=== PATIENT | male | born 1980 | race Caucasian/White ===

== ENCOUNTER → 2017-11-18 | Outpatient (CLI) | payer OTHER ==
[~2017-11-18] MED LIST: AMLO-114 PO
[2017-11-18 12:00] LABS: HEMATOCRIT 41.7 % (42-52); HEMOGLOBIN 14.5 g/dL (14.0-18.0); MEAN CELL VOLUME 101.2 fL (80-100); MEAN CORPUSCULAR HEMOGLOBIN 35.2 pg (25-34); MEAN CORPUSCULAR HGB CONC 34.8 g/dl (32-36); MEAN PLATELET VOLUME 8.6 fL (7.4-10.4); PLATELET COUNT 250 K/uL (130-400); RED CELL DISTRIBUTION WIDTH CV 14.7 % (11.5-14.5); RED CELL DISTRIBUTION WIDTH SD 54.3 fL (36.4-46.3)
[2017-11-18 12:11] LABS: BLOOD UREA NITROGEN 21 mg/dl (7-18); CALCIUM 8.8 mg/dl (8.5-10.1); CARBON DIOXIDE 31 mmol/L (21-32); CREATININE 1.38 mg/dl (0.60-1.40); GLUCOSE 69 mg/dl (70-99); PHOSPHORUS 2.6 mg/dl (2.5-4.9); POTASSIUM 3.5 mmol/L (3.5-5.1); SODIUM 140 mmol/L (136-145)
--- NOTE | 2018-01-30 08:29 | CODING QUERY MEDICAL NECESSITY ---
SUPPORTING DIAGNOSIS NEEDED A supporting diagnosis is required for the test/procedure performed on this patient in order for us to be reimbursed by the patient's insurance. Please provide a supporting diagnosis for the following test/procedure listed below next to the test name along with your signature. *If there is no additional diagnosis for this patient that would support the following test/procedure please document that below next to the test/procedure. Test(s)/Procedure(s) that require a supporting diagnosis: DOS: 11/18/17 * CBC W/O DIFF DIAGNOSIS: * PARATHYROID HORMONE INTACT DIAGNOSIS: * PHOSPHORUS DIAGNOSIS: * PARTIAL RENAL PROFILE DIAGNOSIS: Provider Signature: Date: Thank you Nissa Savage [employer] Once completed, please kindly fax back to [phone] For questions please call [phone]
== END | disposition home or self-care (01) ==
LOC: C.LABCVIM 11:15 → EDSTATUS 12-22 12:10
PROVIDERS: ATTEND Internal Medicine
DX: I10 Essential (primary) hypertension (principal)

== ENCOUNTER 2021-08-20 16:13 | Observation (INO) ==
[2021-08-20 18:36] LABS: Basophils # (auto) 0.07 K/uL (0-0.2); Basophils % (auto) 0.8 %; Eosinophils # (auto) 0.85 K/uL (0-0.5); Eosinophils % (auto) 9.3 %; Hematocrit (blood only) 36.6 % (42-52); Hemoglobin 12.3 g/dL (14.0-18.0); Immature Granulocytes # (auto) 0.03 K/uL (0.00-0.02); Immature Granulocytes % (auto) 0.3 %; Lymphocytes # (auto) 1.67 K/uL (1.2-3.4); Lymphocytes % (auto) 18.3 %; Mean Corpuscular Hemoglobin 36.2 pg (25-34); Mean Corpuscular Hgb Conc 33.6 g/dL (32-36); Mean Corpuscular Volume 107.6 fL (80-100); Monocytes # (auto) 0.73 K/uL (0.11-0.59); Neutrophils # (auto) 5.78 K/uL (1.4-6.5); Neutrophils % (auto) 63.3 %; Platelet Count 417 K/uL (130-400); RDW Coefficient of Variation 12.7 % (11.5-14.5); RDW Standard Deviation 50.3 fL (36.4-46.3); White Blood Count 9.13 K/uL (4.8-10.8)
[2021-08-20] MEDS ORDERED: SODIUM CHLORIDE 0.9% 1000ML 2,000 ML IV ONE (18:41)
[2021-08-20] MEDS ORDERED: ACETAMINOPHEN 1,000 MG/100 ML VIAL IV STA (18:41)
[2021-08-20] MEDS ORDERED: PIPERACILL/TAZOBAC CONSULT ACTIVE PRN ×2 (18:44→23:08)
[2021-08-20] MEDS ORDERED: DAPTOmycin 525 MG in SYRINGE 0 ML IV ONE (18:44)
[2021-08-20] MEDS ORDERED: PIPERACILLIN/TAZOBACTAM 4.5 GM/120 ML BAG IV ONE (18:44)
[2021-08-20 18:55] LABS: Albumin Level 3.5 gm/dl (3.4-5.0); BUN Creatinine Ratio 13.3 (10-20); Calcium 10.1 mg/dl (8.5-10.1); Creatinine Clr Calc Pharmacy 27.5 ml/min; Est GFR (African American) 18.5 ml/min; Potassium 5.1 mmol/L (3.5-5.1)
[2021-08-20 18:58] LABS: Albumin Globulin Ratio 0.6 (0.9-2); Bilirubin,Total 0.4 mg/dl (0.2-1); Globulin 5.6 gm/dl (2.5-4.0); Total Protein 9.1 gm/dl (6.4-8.2)
--- NOTE | 2021-08-20 19:15 | Emergency Department Note ---
Impression & Plan Acute on chronic renal failure, Hypotension, Abscess of left foot ED Provider Note NAME: JOCELYN JENSEN AGE: 41 SEX: M ARRIVES VIA: Walk-In INFORMANT: Patient, ED PROVIDER(S): Bakari Win MD CHIEF COMPLAINT: Dizziness, hypotension. PLAN: Disposition: Admit MEDICAL DECISION MAKING: The patient is a pleasant 41-year-old gentleman with a past medical history of CKD, hypertension, chronic venous insufficiency, venous stasis ulcer of the lower extremities who presents to the emergency department referred by his rib chopper after having continued low blood pressure and lightheadedness in setting of being seen in the emergency department on 08/14 for the same suspected to be related to dehydration as his renal function was declining. He reports that he was initially taking he stopped taking his hydrochlorothiazide after seeing his PCP on 08/13 but following his ED visit was told to discontinue his lisinopril per his rib chopper recommendations. He then reports he resumed his hydrochlorothiazide as he presumed that he was supposed to stay on "something". He reports he follows with the wound clinic weekly and was last seen on Friday when his leg foot was wrapped. This has not been changed. He reports there does appear to be some oozing from the dorsal part of his foot that he feels may be related to the dressing. He denies any fevers, nausea, vomiting, diarrhea or urinary symptoms. He does report chills but feels that this is probably due to his low blood pressure. He denies any syncopal episodes. On arrival the patient is chronically ill/fatigued appearing but no acute distress, afebrile with low blood pressure 80s-100s/60s-70s. HR 110s and otherwise vital signs stable. He does appear clinically dry. Examination of the patient's left lower extremity and foot following removal of extensive dressing/Coban did reveal fluctuance and edema of the dorsal forefoot mostly over the fourth and fifth metatarsal area which upon palpation did express foul- smelling purulent discharge. This was cultured and sent. Additional massage this area did express additional purulence with reduction of area of fluctuance. The patient does have a 4 cm medial malleolus ulcer which he reports is unchanged. EKG without overt acute ischemia. CXR negative for acute cardiopulmonary process. XR of foot and ankle, without XR evidence of osteo Note is made of few locules of soft tissue gas of the dorsal left forefoot at the level of the distal shaft of the left fifth metatarsal. WBC wnl. HH similar to prior. Platelets 417K, nonspecific. ESR and CRP are elevated at 84 and and 5.5, respectively. Chemistry without significant acidosis. Cr. uptrended to 4.25. Electrolytes unremarkable. LFTs without significant abnormality. Troponin negative/undetectable. Procalcitonin 0.38. UA without convincing evidence of infection. Covid-19 PCR negative. Patient was treat with IV Zosyn and Daptomycin upon arrival given foot abscess and hypotension. BP responsive to IVF in ED. Patient agrees with plan for admission. CT abd/pelvis and foot ordered and pending. Case was discussed with Dr. Reyez, [facility] hospitalist, who will evaluate the patient for admission. CT Foot demonstrates small residual abscess of the forefoot in the setting of drainage at the bedside during his exam on arrival. CT abd/pelvis with pancre atic cyst, which is suspected to be incidental given benign abdominal exam. Triage Nursing notes reviewed and agree them. Prior medical records reviewed Vital Signs: reviewed and remarkable for hypotension, tachycardia. Differential diagnosis: Infection, dehydration, metabolic abnormality, hypo/hyperglycemia, electrolyte disturbance, anemia, hypoxia, cardiac sources, intracerebral event, toxicologic, neurologic, as well as other pathologies. ER treatment provided: See below. Diagnostics interpreted by me: ECG: Sinus rhythm with 1st degree A-V block, 90 bpm, no ectopy, no overt ST elevation or depression. Cardiac Monitoring: An order for continuous cardiac monitoring was placed and demonstrated Sinus rhythm, 90 bpm, no ectopy Laboratory studies: See below Imaging studies: See below Consultation(s): Case was discussed with Dr. Reyez, [facility] hospitalist, who will evaluate the patient for admission. HPI: The patient is a pleasant 41-year-old gentleman with a past medical history of CKD, hypertension, chronic venous insufficiency, venous stasis ulcer of the lower extremities who presents to the emergency department referred by his rib chopper after having continued low blood pressure and lightheadedness in setting of being seen in the emergency department on 08/14 for the same suspected to be related to dehydration as his renal function was declining. He reports that he was initially taking he stopped taking his hydrochlorothiazide after seeing his PCP on 08/13 but following his ED visit was told to discontinue his lisinopril per his rib chopper recommendations. He then reports he resumed his hydrochlorothiazide as he presumed that he was supposed to stay on "something". He reports he follows with the wound clinic weekly and was last seen on Friday when his leg foot was wrapped. This has not been changed. He reports there does appear to be some oozing from the dorsal part of his foot that he feels may be related to the dressing. He denies any fevers, nausea, vomiting, diarrhea or urinary symptoms. He does report chills but feels that this is probably due to his low blood pressure. He denies any syncopal episodes. ROS: See above HPI for pertinent positives & negatives. A total of 10 systems reviewed and were otherwise negative. PAST MEDICAL HISTORY:See Below PAST SURGICAL HISTORY:See Below FAMILY HISTORY:See Below SOCIAL HISTORY:See Below HOME MEDICATIONS:See Below ALLERGIES:See Below VITALS:See Below PHYSICAL EXAMINATION: GENERAL: Awake, alert, fatigued/chronically ill-appearing, in no distress HENT: Normocephalic, atraumatic. Oropharynx with dry mucous membranes and otherwise unremarkable. EYES: Normal conjunctiva. Sclera non-icteric. NECK: Supple. No nuchal rigidity. FROM. No JVD. RESPIRATORY: Clear to auscultation. CARDIAC: Regular rate, normal rhythm. Extremities warm and well perfused. Pulses equal. ABDOMEN: Soft, non-distended. No tenderness to palpation. No rebound or guarding. No masses. RECTAL: Deferred. MUSCULOSKELETAL: Chest examination reveals no tenderness. The back is symmetrical on inspection without obvious abnormality. There is no CVA tenderness to palpation. No joint edema. LOWER EXTREMITIES: Calves are equal size bilaterally and non-tender. Left lower extremity and foot following removal of extensive dressing/Coban did reveal fluctuance and edema of the dorsal forefoot mostly over the fourth and fifth metatarsal area which upon palpation did express foul-smelling purulent discharg e. 4 cm medial malleolus ulcer. NEURO: Normal sensorium. No sensory or motor deficits noted. SKIN: No rash or jaundice noted. ED Course: I have personally spent greater than 35 minutes of critical care time in the direct management of this patient. This includes bedside care, interpretation of diagnostic studies, and testing, discussion with consultants, patient, and f amily members, and other required patient management activities. This 35 minutes is in excess of all separately billable procedures. Bakari Win MD Past Med/Surg History Medical History Acute kidney injury Arthritis Chronic kidney disease with symptom management only, stage 4 (severe) Chronic venous insufficiency Deep vein thrombosis 07/2018/CHRONIC- ON ELIQUIS HTN (hypertension) MVP (mitral valve prolapse) 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 ECHO Secondary hyperparathyroidism of renal origin Staphylococcus aureus infection Superficial thrombosis of leg PER RECORDS UTI (urinary tract infection) Venous ulcer RECURRENT VENOUS ULCERATION (REASON FOR PROCEDURE) Vitamin D deficiency Vitamin D deficiency Surgical History Hx of biopsy LEFT KIDNEY S/P vascular surgery LLE 2/2 VENOUS INSUFFICIENCY Family History Mother FHx: lung cancer Hypertension Breast cancer Brother FHx: testicular cancer Hypertension Father Hypertension Unknown Myocardial infarction Social History Smoking Status: Never smoker Second Hand Exposure: No; Do You Dip or Chew Tobacco: No; Hx Alcohol Use: Yes Alcohol type: beer, wine and hard liquor Alcohol Intake Frequency Comment: daily Hx Substance Use: No Preferred Language: Macedonian Communication Ability: Effective Visual Impairment: No Limitations Second Helper Required: No Beliefs That Will Affect Care: None marital status: Current Living Situation: Significant Other Current Living Situation Comment: Fiance Other Information That Helps Us Care for You: No Feels Safe at Home: Yes Safety Concerns: Feels Safe At This Time Assistive Devices: None Allergies Allergies Allergy/AdvReac Type Severity Reaction Status Date / Time doxycycline Allergy Severe Joint Verified 08/20/21 19:18 Pain, Shortness of breath cephalexin Allergy Mild throat Verified 08/20/21 19:18 swells Cipro Allergy Mild throat Verified 06/09/18 08:28 swells ciprofloxacin Allergy Mild throat Verified 08/20/21 19:18 swells Home Meds Previous Rx's Medication Instructions Recorded apixaban 5 mg tablet 5 mg PO BID #180 tab 11/07/20 hydrochlorothiazide 25 mg tablet 25 mg PO QAM #90 tab 05/31/21 allopurinol 100 mg tablet 100 mg PO DAILY #90 tab 06/18/21 Results & Data (ED) Vital Signs Vital Signs - 24 hr 08/20/21 16:48 08/20/21 17:52 08/20/21 18:20 Temperature 36.3 C L Temperature Source Oral Pulse Rate - Lying 82 Pulse Rate - Sitting 87 Pulse Rate - Standing 120 H Pulse Rate 93 H Pulse Rate [Right Finger] 86 Pulse Rhythm [Right Finger] Pulse Strength [Right Finger] Respiratory Rate 20 14 Respiratory Effort / Characteristics Non-Labored Spontaneous Respiratory Depth Normal Respiratory Pattern Regular Blood Pressure - Lying 104/65 Blood Pressure - Sitting 103/71 Blood Pressure- Standing 88/58 L Blood Pressure 89/59 L Blood Pressure [Right Arm] 104/65 Blood Pressure Mean 69 Blood Pressure Mean [Right Arm] 78 Blood Pressure Position Sitting Blood Pressure Position [Right Arm] Semi-fowlers Pulse Oximetry 98 100 Oxygen Delivery Method Room Air Room Air Sepsis Recent Fever Within 48 Hours No Sepsis New/Unexplained Change in Mental Status N/A Sepsis Action Taken by Nursing No Action Required 08/20/21 18:21 08/20/21 19:40 Temperature 36.8 C Temperature Source Oral Pulse Rate - Lying Pulse Rate - Sitting Pulse Rate - Standing Pulse Rate Pulse Rate [Right Finger] 87 91 H Pulse Rhythm [Right Finger] Regular Regular Pulse Strength [Right Finger] Normal Normal Respiratory Rate 18 18 Respiratory Effort / Characteristics Non-Labored Spontaneous Non-Labored Spontaneous Respiratory Depth Normal Normal Respiratory Pattern Regular Regular Blood Pressure - Lying Blood Pressure - Sitting Blood Pressure- Standing Blood Pressure Blood Pressure [Right Arm] 103/71 102/80 Blood Pressure Mean Blood Pressure Mean [Right Arm] 81 87 Blood Pressure Position Blood Pressure Position [Right Arm] Sitting Lying Pulse Oximetry 100 100 Oxygen Delivery Method Room Air Room Air Sepsis Recent Fever Within 48 Hours Sepsis New/Unexplained Change in Mental Status Sepsis Action Taken by Nursing Laboratory Data Attestation: I reviewed the patient's lab results. Result diagrams: 08/20/21 18:02 08/20/21 18:02 Lab Results 08/20/21 08/20/21 08/20/21 Range/Units 18:02 18:02 18:02 WBC 9.13 (4.8-10.8) K/uL RBC 3.40 L (4.7-6.1) M/uL Hgb 12.3 L (14.0-18.0) g/dL Hct 36.6 L (42-52) % MCV 107.6 H (80-100) fL MCH 36.2 H (25-34) pg MCHC 33.6 (32-36) g/dL RDW Std Deviation 50.3 H (36.4-46.3) fL RDW Coeff of Machelle 12.7 (11.5-14.5) % Plt Count 417 H (130-400) K/uL MPV 9.0 (7.4-10.4) fL Immature Gran % (Auto) 0.3 % Neut % (Auto) 63.3 % Lymph % (Auto) 18.3 % Aiken % (Auto) 8.0 % Eos % (Auto) 9.3 % Baso % (Auto) 0.8 % Neut # (Auto) 5.78 (1.4-6.5) K/uL Lymph # (Auto) 1.67 (1.2-3.4) K/uL Aiken # (Auto) 0.73 H (0.11-0.59) K/uL Eos # (Auto) 0.85 H (0-0.5) K/uL Baso # (Auto) 0.07 (0-0.2) K/uL Immature Gran # (Auto) 0.03 H (0.00-0.02) K/uL ESR 84 H (0-15) mm/hr PT (9.0-12.0) Seconds INR (0.9-1.1) Sodium 133 L (136-145) mmol/L Potassium 5.1 (3.5-5.1) mmol/L Chloride 103 (98-107) mmol/L Carbon Dioxide 20 L (21-32) mmol/L Anion Gap 10.0 (3-11) BUN 57 H (7-18) mg/dl Creatinine 4.25 H (0.6-1.4) mg/dl Est Cr Clr Drug Dosing 27.5 ml/min Est GFR ( Amer) 18.5 ml/min Est GFR (Non-Af Amer) 16.0 ml/min BUN/Creatinine Ratio 13.3 (10-20) Glucose 92 (70-99) mg/dl Lactate (0.4-2.0) mmol/L Calcium 10.1 (8.5-10.1) mg/dl Phosphorus (2.5-4.9) mg/dl Magnesium (1.8-2.4) mg/dl Total Bilirubin 0.4 (0.2-1) mg/dl AST 35 (15-37) U/L ALT 49 (12-78) U/L Alkaline Phosphatase 184 H (45-117) U/L Troponin I (0-0.045) ng/ml C-Reactive Protein (0-0.29) mg/dl Total Protein 9.1 H (6.4-8.2) gm/dl Albumin 3.5 (3.4-5.0) gm/dl Globulin 5.6 H (2.5-4.0) gm/dl Albumin/Globulin Ratio 0.6 L (0.9-2) Procalcitonin (0-0.5) ng/ml Urine Color Urine Appearance (Clear) Urine pH (4.5-7.5) Ur Specific Aurora (1.000-1.030) Urine Protein (Negative) Urine Glucose (UA) (Negative) Urine Ketones (Negative) Urine Blood (Negative) Urine Nitrite (Negative) Urine Bilirubin (Negative) Urine Urobilinogen (Negative) Ur Leukocyte Esterase (Negative) Urine WBC (Auto) (0-5) /hpf Urine RBC (Auto) (0-4) /hpf U Hyaline Cast (Auto) (0-5) /lpf U Epithel Cells (Auto) (0-5) /lpf Urine Bacteria (Auto) (Negative) COVID-19 Eval Order SARS-CoV-2 (PCR) (Negative) 08/20/21 08/20/21 08/20/21 Range/Units 18:54 18:54 18:54 WBC (4.8-10.8) K/uL RBC (4.7-6.1) M/uL Hgb (14.0-18.0) g/dL Hct (42-52) % MCV (80-100) fL MCH (25-34) pg MCHC (32-36) g/dL RDW Std Deviation (36.4-46.3) fL RDW Coeff of Machelle (11.5-14.5) % Plt Count (130-400) K/uL MPV (7.4-10.4) fL Immature Gran % (Auto) % Neut % (Auto) % Lymph % (Auto) % Aiken % (Auto) % Eos % (Auto) % Baso % (Auto) % Neut # (Auto) (1.4-6.5) K/uL Lymph # (Auto) (1.2-3.4) K/uL Aiken # (Auto) (0.11-0.59) K/uL Eos # (Auto) (0-0.5) K/uL Baso # (Auto) (0-0.2) K/uL Immature Gran # (Auto) (0.00-0.02) K/uL ESR (0-15) mm/hr PT 10.9 (9.0-12.0) Seconds INR 1.1 (0.9-1.1) Sodium (136-145) mmol/L Potassium (3.5-5.1) mmol/L Chloride (98-107) mmol/L Carbon Dioxide (21-32) mmol/L Anion Gap (3-11) BUN (7-18) mg/dl Creatinine (0.6-1.4) mg/dl Est Cr Clr Drug Dosing ml/min Est GFR ( Amer) ml/min Est GFR (Non-Af Amer) ml/min BUN/Creatinine Ratio (10-20) Glucose (70-99) mg/dl Lactate (0.4-2.0) mmol/L Calcium (8.5-10.1) mg/dl Phosphorus 4.5 (2.5-4.9) mg/dl Magnesium 2.1 (1.8-2.4) mg/dl Total Bilirubin (0.2-1) mg/dl AST (15-37) U/L ALT (12-78) U/L Alkaline Phosphatase (45-117) U/L Troponin I < 0.015 (0-0.045) ng/ml C-Reactive Protein (0-0.29) mg/dl Total Protein (6.4-8.2) gm/dl Albumin (3.4-5.0) gm/dl Globulin (2.5-4.0) gm/dl Albumin/Globulin Ratio (0.9-2) Procalcitonin 0.38 (0-0.5) ng/ml Urine Color Urine Appearance (Clear) Urine pH (4.5-7.5) Ur Specific Aurora (1.000-1.030) Urine Protein (Negative) Urine Glucose (UA) (Negative) Urine Ketones (Negative) Urine Blood (Negative) Urine Nitrite (Negative) Urine Bilirubin (Negative) Urine Urobilinogen (Negative) Ur Leukocyte Esterase (Negative) Urine WBC (Auto) (0-5) /hpf Urine RBC (Auto) (0-4) /hpf U Hyaline Cast (Auto) (0-5) /lpf U Epithel Cells (Auto) (0-5) /lpf Urine Bacteria (Auto) (Negative) COVID-19 Eval Order SARS-CoV-2 (PCR) (Negative) 08/20/21 08/20/21 08/20/21 Range/Units 18:54 18:54 18:54 WBC (4.8-10.8) K/uL RBC (4.7-6.1) M/uL Hgb (14.0-18.0) g/dL Hct (42-52) % MCV (80-100) fL MCH (25-34) pg MCHC (32-36) g/dL RDW Std Deviation (36.4-46.3) fL RDW Coeff of Machelle (11.5-14.5) % Plt Count (130-400) K/uL MPV (7.4-10.4) fL Immature Gran % (Auto) % Neut % (Auto) % Lymph % (Auto) % Aiken % (Auto) % Eos % (Auto) % Baso % (Auto) % Neut # (Auto) (1.4-6.5) K/uL Lymph # (Auto) (1.2-3.4) K/uL Aiken # (Auto) (0.11-0.59) K/uL Eos # (Auto) (0-0.5) K/uL Baso # (Auto) (0-0.2) K/uL Immature Gran # (Auto) (0.00-0.02) K/uL ESR (0-15) mm/hr PT (9.0-12.0) Seconds INR (0.9-1.1) Sodium (136-145) mmol/L Potassium (3.5-5.1) mmol/L Chloride (98-107) mmol/L Carbon Dioxide (21-32) mmol/L Anion Gap (3-11) BUN (7-18) mg/dl Creatinine (0.6-1.4) mg/dl Est Cr Clr Drug Dosing ml/min Est GFR ( Amer) ml/min Est GFR (Non-Af Amer) ml/min BUN/Creatinine Ratio (10-20) Glucose (70-99) mg/dl Lactate 1.0 (0.4-2.0) mmol/L Calcium (8.5-10.1) mg/dl Phosphorus (2.5-4.9) mg/dl Magnesium (1.8-2.4) mg/dl Total Bilirubin (0.2-1) mg/dl AST (15-37) U/L ALT (12-78) U/L Alkaline Phosphatase (45-117) U/L Troponin I (0-0.045) ng/ml C-Reactive Protein (0-0.29) mg/dl Total Protein (6.4-8.2) gm/dl Albumin (3.4-5.0) gm/dl Globulin (2.5-4.0) gm/dl Albumin/Globulin Ratio (0.9-2) Procalcitonin (0-0.5) ng/ml Urine Color Urine Appearance (Clear) Urine pH (4.5-7.5) Ur Specific Aurora (1.000-1.030) Urine Protein (Negative) Urine Glucose (UA) (Negative) Urine Ketones (Negative) Urine Blood (Negative) Urine Nitrite (Negative) Urine Bilirubin (Negative) Urine Urobilinogen (Negative) Ur Leukocyte Esterase (Negative) Urine WBC (Auto) (0-5) /hpf Urine RBC (Auto) (0-4) /hpf U Hyaline Cast (Auto) (0-5) /lpf U Epithel Cells (Auto) (0-5) /lpf Urine Bacteria (Auto) (Negative) COVID-19 Eval Order Covid19 at [facility] SARS-CoV-2 (PCR) NEGATIVE (Negative) 08/20/21 08/20/21 Range/Units 18:54 19:06 WBC (4.8-10.8) K/uL RBC (4.7-6.1) M/uL Hgb (14.0-18.0) g/dL Hct (42-52) % MCV (80-100) fL MCH (25-34) pg MCHC (32-36) g/dL RDW Std Deviation (36.4-46.3) fL RDW Coeff of Machelle (11.5-14.5) % Plt Count (130-400) K/uL MPV (7.4-10.4) fL Immature Gran % (Auto) % Neut % (Auto) % Lymph % (Auto) % Aiken % (Auto) % Eos % (Auto) % Baso % (Auto) % Neut # (Auto) (1.4-6.5) K/uL Lymph # (Auto) (1.2-3.4) K/uL Aiken # (Auto) (0.11-0.59) K/uL Eos # (Auto) (0-0.5) K/uL Baso # (Auto) (0-0.2) K/uL Immature Gran # (Auto) (0.00-0.02) K/uL ESR (0-15) mm/hr PT (9.0-12.0) Seconds INR (0.9-1.1) Sodium (136-145) mmol/L Potassium (3.5-5.1) mmol/L Chloride (98-107) mmol/L Carbon Dioxide (21-32) mmol/L Anion Gap (3-11) BUN (7-18) mg/dl Creatinine (0.6-1.4) mg/dl Est Cr Clr Drug Dosing ml/min Est GFR ( Amer) ml/min Est GFR (Non-Af Amer) ml/min BUN/Creatinine Ratio (10-20) Glucose (70-99) mg/dl Lactate (0.4-2.0) mmol/L Calcium (8.5-10.1) mg/dl Phosphorus (2.5-4.9) mg/dl Magnesium (1.8-2.4) mg/dl Total Bilirubin (0.2-1) mg/dl AST (15-37) U/L ALT (12-78) U/L Alkaline Phosphatase (45-117) U/L Troponin I (0-0.045) ng/ml C-Reactive Protein 5.52 H (0-0.29) mg/dl Total Protein (6.4-8.2) gm/dl Albumin (3.4-5.0) gm/dl Globulin (2.5-4.0) gm/dl Albumin/Globulin Ratio (0.9-2) Procalcitonin (0-0.5) ng/ml Urine Color Yellow Urine Appearance Clear (Clear) Urine pH 5.5 (4.5-7.5) Ur Specific Aurora 1.016 (1.000-1.030) Urine Protein 2+ H (Negative) Urine Glucose (UA) Negative (Negative) Urine Ketones Trace H (Negative) Urine Blood Trace H (Negative) Urine Nitrite Negative (Negative) Urine Bilirubin Negative (Negative) Urine Urobilinogen Negative (Negative) Ur Leukocyte Esterase Negative (Negative) Urine WBC (Auto) 1-5 (0-5) /hpf Urine RBC (Auto) 0-4 (0-4) /hpf U Hyaline Cast (Auto) 10-30 H (0-5) /lpf U Epithel Cells (Auto) 10-20 H (0-5) /lpf Urine Bacteria (Auto) Negative (Negative) COVID-19 Eval Order SARS-CoV-2 (PCR) (Negative) Administered Medications Apixaban (Apixaban 5 Mg Tablet) 5 mg PO BID [facility] Stop: 09/20/21 00:00 Last Admin: 08/21/21 00:28 Dose: Not Given Documented by: [id number] Sodium Chloride (Nss 1000ml) 1,000 mls @ 80 mls/hr IV .[id number] [facility] Stop: 08/21/21 11:37 Last Admin: 08/21/21 00:17 Dose: 80 mls/hr Documented by: [id number] Piperacillin Sod/Tazobactam (Sod 3.375 gm/ Dextrose) 115 mls @ 28.75 mls/hr IV Q8H [facility]; Protocol Stop: 08/28/21 01:59 Last Admin: 08/21/21 02:25 Dose: 28.8 mls/hr Documented by: [id number] Discontinued Medications Sodium Chloride (Nss 1000ml) 2,000 mls @ 999 mls/hr IV .[id number] ONE Stop: 08/20/21 20:41 Last Infusion: 08/20/21 20:59 Dose: 0 mls/hr Documented by: [id number] Admin: 08/20/21 19:07 Dose: 999 mls/hr Documented by: [id number] Acetaminophen (Ofirmev) 1,000 mg in 100 mls @ 400 mls/hr IV NOW STA Stop: 08/20/21 18:55 Last Infusion: 08/20/21 19:46 Dose: 0 mls/hr Documented by: [id number] Admin: 08/20/21 19:07 Dose: 400 mls/hr Documented by: [id number] Piperacillin Sod/Tazobactam Sod (Zosyn) 4.5 gm in 120 mls @ 240 mls/hr IV NOW ONE Stop: 08/20/21 19:13 Last Infusion: 08/20/21 19:46 Dose: 0 mls/hr Documented by: [id number] Admin: 08/20/21 19:07 Dose: 240 mls/hr Documented by: [id number] Daptomycin 525 mg/ Syringe 10.5 mls @ 5.25 mls/min IV NOW ONE; Protocol Stop: 08/20/21 18:45 Last Admin: 08/20/21 19:39 Dose: 5.25 mls/min Documented by: [id number] Imaging Data Radiologist's Impression: Chest X-Ray 08/20/21 18:40 XR chest 1V portable CLINICAL HISTORY: SEPSIS COMPARISON STUDY: Chest radiograph August 15, 2021. FINDINGS: Lung volumes are normal. Lungs are clear. There is no pneumothorax or pleural effusion. Cardiac size is normal. Mediastinal contours are normal. There is no evidence for pulmonary edema. IMPRESSION: No acute cardiopulmonary findings. ACT 112: Negative or not required by law. Electronically signed by: Manjit Cali M.D. 08/20/2021 7:22 PM Ankle X-Ray 08/20/21 18:41 XR ankle LT min 3V routine CLINICAL HISTORY: L forefoot abscess, eval osseous involvement COMPARISON: Left tibia and fibula radiographs August 09, 2018. MRI of the left lower leg August 10, 2018. FINDINGS: Alignment of the left ankle is anatomic. No acute fracture. There is no radiographic evidence of acute osteomyelitis. Osteopenia is noted. This has progressed since prior exam. Posterior and plantar calcaneal spurring is noted. Talonavicular joint osteophytosis is noted. IMPRESSION: 1. No acute fracture. No evidence for acute osteomyelitis within the left ankle. 2. Osteopenia. 3. Talonavicular joint osteophytosis and joint space narrowing. ACT 112: Negative or not required by law. Electronically signed by: Manjit Cali M.D. 08/20/2021 7:19 PM Foot X-Ray 08/20/21 18:41 XR foot LT min 3V routine CLINICAL HISTORY: L forefoot abscess, eval osseous involve COMPARISON: Left foot radiographs September 29, 2019. FINDINGS: Alignment of the left foot is anatomic. Tarsometatarsal joints are intact. There is osteopenia. No acute fracture is identified. There is no radiographic evidence for osteomyelitis. A few locules of soft tissue gas of the dorsal left forefoot are noted. These are the level of the distal shaft of the left fifth metatarsal. IMPRESSION: 1. No acute fracture. No evidence for acute osteomyelitis within the left foot. 2. A few locules of soft tissue gas the dorsal left forefoot, as described above. These could be related to an abscess or wound. A gas-forming organism cannot be excluded. ACT 112: Negative or not required by law. Electronically signed by: Manjit Cali M.D. 08/20/2021 7:29 PM [facility] Preliminary Findings Only See Final Report For Complete Findings CT ABDOMEN & PELVIS Without Contrast: 3 x 3.3 cm complex, thick-walled cyst of the pancreatic head with surrounding haziness, nonspecific, possible abscess, sequelae of acute pancreatitis, versus neoplasm. No ascites, adenopathy, pancreatic or intra-/extrahepatic ductal dilatation. No SBO, free air or free fluid. Incidental fatty liver and small hiatal hernia. Radiologist: Sandra Gross M.D. Study ready at 21:10 and initial results transmitted at 21:36 -- Preliminary Findings Only See Final Report For Complete Findings CT LEFT FOOT: 16 x 5 x 5 mm fluid collection in the dorsum of the foot, deep to the skin at the level of the fourth mid metatarsal, compatible with small abscess. Moderate surrounding cellulitis. No osteomyelitis or acute bony abnormality. No deeper involvement to suggest a necrotizing deep space infection. Radiologist: aSndra Gross M.D. Study ready at 21:29 and initial results transmitted at 21:57 Discharge Plan Visit Data Chief Complaint: Hypotension Stated Complaint: low blood pressure,stomach issue,abnormal creatine ED Provider: Bakari Win Discharge Problem: Acute on chronic renal failure, Hypotension, Abscess of left foot Patient Disposition: Admitted As Inpatient Discharge Instructions Interventions: ED Discharge Assessment Last Done: 08/20/21 22:50 Discharge Problem: Acute on chronic renal failure Qualifiers: Acute renal failure type: unspecified Chronic kidney disease stage: unspecified stage Qualified Code(s): N17.9 - Acute kidney failure, unspecified Hypotension Qualifiers: Hypotension type: unspecified hypotension type Qualified Code(s): I95.9 - Hypotension, unspecified
--- NOTE | 2021-08-20 19:21 | XRay Report ---
XR ankle LT min 3V routine CLINICAL HISTORY: L forefoot abscess, eval osseous involvement COMPARISON: Left tibia and fibula radiographs August 09, 2018. MRI of the left lower leg August 10, 2018. FINDINGS: Alignment of the left ankle is anatomic. No acute fracture. There is no radiographic evide nce of acute osteomyelitis. Osteopenia is noted. This has progressed since prior exam. Posterior and plantar calcaneal spurring is noted. Talonavicular joint osteophytosis is noted. IMPRESSION: 1. No acute fracture. No evidence for acute osteomyelitis within the left ankle. 2. Osteopenia. 3. Talonavicular joint osteophytosis and joint space narrowing. ACT 112: Negative or not required by law. Electronically signed by: Manjit Cali M.D. 08/20/2021 7:19 PM
--- NOTE | 2021-08-20 19:23 | XRay Report ---
XR chest 1V portable CLINICAL HISTORY: SEPSIS COMPARISON STUDY: Chest radiograph August 15, 2021. FINDINGS: Lung volumes are normal. Lungs are clear. There is no pneumothorax or pleural effusion. Car diac size is normal. Mediastinal contours are normal. There is no evidence for pulmonary edema. IMPRESSION: No acute cardiopulmonary findings. ACT 112: Negative or not required by law. Electronically signed by: Manjit Cali M.D. 08/20/2021 7:22 PM
[2021-08-20 19:26] LABS: INR 1.1 (0.9-1.1); Prothrombin Time 10.9 Seconds (9.0-12.0)
[2021-08-20 19:26] LABS: Appearance Urine Clear (Clear); Bacteria Urine Automated Negative (Negative); Bilirubin Urine Negative (Negative); Blood Urine Trace (Negative); Color Urine Yellow; Glucose Urine UA Negative (Negative); Ketones Urine Trace (Negative); Leukocyte Esterase Urine Negative (Negative); Nitrite Urine Negative (Negative); Protein Urine 2+ (Negative); RBC Urine Automated 0-4 /hpf (0-4); Specific Gravity Urine 1.016 (1.000-1.030); Urobilinogen Urine Negative (Negative); pH Urine 5.5 (4.5-7.5)
--- NOTE | 2021-08-20 19:31 | XRay Report ---
XR foot LT min 3V routine CLINICAL HISTORY: L forefoot abscess, eval osseous involve COMPARISON: Left foot radiographs September 29, 2019. FINDINGS: Alignment of the left foot is anatomic. Tarsometatarsal joints are intact. There is osteop enia. No acute fracture is identified. There is no radiographic evidence for osteomyelitis. A few loc ules of soft tissue gas of the dorsal left forefoot are noted. These are the level of the distal shaf t of the left fifth metatarsal. IMPRESSION: 1. No acute fracture. No evidence for acute osteomyelitis within the left foot. 2. A few locules of soft tissue gas the dorsal left forefoot, as described above. These could be rela william to an abscess or wound. A gas-forming organism cannot be excluded. ACT 112: Negative or not required by law. Electronically signed by: Manjit Cali M.D. 08/20/2021 7:29 PM
[2021-08-20 19:32] LABS: Magnesium 2.1 mg/dl (1.8-2.4); Phosphorus 4.5 mg/dl (2.5-4.9); Troponin I < 0.015 ng/ml (0-0.045)
--- NOTE | 2021-08-20 21:10 | History & Physical Report ---
Date of Service August 20, 2021 Assessment & Plan (1) Left foot infection: Plan: Follow culture and sensitivity of drainage Continue daptomycin IV and Zosyn IV begun in the ED Previous ulcer of left medial malleolus area significantly improved Consult wound care (2) Acute kidney injury superimposed on chronic kidney disease: Plan: Creatinine 4.25 upon admission, with recent creatinines from 08/14: 2.74-3.35-3.54, and now 4.25 Hold HCTZ Continue IV fluid rehydration Repeat labs in a.m. Consult his electronic technologist (3) Hypotensive episode: Plan: Blood pressure initially 88/64, responded to IV fluids to 106/69 Continue rehydration overnight (4) HTN (hypertension): Plan: Hold HCTZ (5) Chronic kidney disease with symptom management only, stage 4 (severe): Plan: See above Continue apixaban, with history of ischemic injury History of Present Illness Chief Complaint: The patient is referred to the emergency department by his electronic technologist due to low blood pressure and lightheadedness Primary Care Provider: Francisco Guzman MD The patient is a 41-year-old male with a past medical history including recently worsening CKD, vitamin D deficiency, UTI, history of COVID-19 virus infection, hypertension, CKD stage IV, secondary hyperparathyroidism of renal origin, CVI, tachycardia, venous stasis ulcer of left lower leg with edema. The patient was referred to the emergency department due to a low blood pressure and lightheadedness when at his electronic technologist office. Upon presentation to the emergency department blood pressure was at its lowest 88/64, but did respond to IV fluids to a pressure of 106/69. Abnormal laboratories: Hemoglobin 12.3, hematocrit 36.6, platelets 417, sodium 133, potassium 5.1, BUN 57, creatinine 4.25. X-ray of left foot and ankle showed soft tissue gas, with no suggestion of osteomyelitis Allergies Allergy/AdvReac Type Severity Reaction Status Date / Time doxycycline Allergy Severe Joint Verified 08/20/21 19:18 Pain, Shortness of breath cephalexin Allergy Mild throat Verified 08/20/21 19:18 swells Cipro Allergy Mild throat Verified 06/09/18 08:28 swells ciprofloxacin Allergy Mild throat Verified 08/20/21 19:18 swells Home Medications Medication Instructions Recorded Confirmed Type apixaban 5 mg tablet 5 mg PO BID #180 tab 11/07/20 08/20/21 Rx hydrochlorothiazide 25 mg tablet 25 mg PO QAM #90 tab 05/31/21 08/20/21 Rx allopurinol 100 mg tablet 100 mg PO DAILY #90 tab 06/18/21 08/20/21 Rx Past Med/Surg History Medical History (Updated 08/21/21 @ 04:31 by Robson Reyez MD) Acute kidney injury Arthritis Chronic kidney disease with symptom management only, stage 4 (severe) Chronic venous insufficiency Deep vein thrombosis 07/2018/CHRONIC- ON ELIQUIS HTN (hypertension) MVP (mitral valve prolapse) 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 ECHO Secondary hyperparathyroidism of renal origin Staphylococcus aureus infection Superficial thrombosis of leg PER RECORDS UTI (urinary tract infection) Venous ulcer RECURRENT VENOUS ULCERATION (REASON FOR PROCEDURE) Vitamin D deficiency Vitamin D deficiency Surgical History Hx of biopsy LEFT KIDNEY S/P vascular surgery LLE 2/2 VENOUS INSUFFICIENCY Family History Mother FHx: lung cancer Hypertension Breast cancer Brother FHx: testicular cancer Hypertension Father Hypertension Unknown Myocardial infarction Social History Smoking Status: Never smoker Second Hand Exposure: No; Do You Dip or Chew Tobacco: No; Hx Alcohol Use: Yes Alcohol type: beer, wine and hard liquor Alcohol Intake Frequency Comment: daily Hx Substance Use: No Preferred Language: Moroccan Communication Ability: Effective Visual Impairment: No Limitations Events Associate Required: No Beliefs That Will Affect Care: None marital status: Current Living Situation: Significant Other Current Living Situation Comment: Fiance Other Information That Helps Us Care for You: No Feels Safe at Home: Yes Safety Concerns: Feels Safe At This Time Assistive Devices: None Review of Systems Review of Systems: The patient denies chest pain, palpitations, shortness of breath, dyspnea on exertion, cough, sore throat, fevers, chills, sweats, nausea, vomiting, diarrhea , constipation, abdominal pain, pelvic pain, blood in urine or stool, dysuria, urinary frequency or urgency, headache, memory loss, loss of consciousness, rash, abnormal bruising or bleeding, imbalance, focal or generalized weakness, numbness or tingling in arms, generalized arthralgias or myalgias, back or neck pain, or night sweats. The review of systems is otherwise negative other than for that already noted above, and at least 10 systems have been reviewed. Physical Exam Physical Exam: The patient is awake, alert and oriented 3, well developed and well nourished, normocephalic and atraumatic, lying in bed and in no acute distress. HEENT--PERRL, EOMI, mucous membranes and oropharynx mildly dry. Neck--supple. No JVD. No bruits. Thyroid normal, trachea midline, no adenopathy. Heart--normal S1 and S2. No murmurs, rubs or gallops. Lungs--clear bilaterally, no respiratory distress, no accessory muscle use. Abdomen--normal bowel sounds and soft. Nontender. Nondistended. Extremities--left lower extremity with healing medial malleolus ulcer. Dorsum of left foot with area of drainage, now bandaged by the ED Dermatologic--see above Neurologic--cranial nerves II through XII grossly intact. Rheumatologic--normal range of motion. Psychiatric--normal affect. Results & Data Results & Data ([facility]) Vital Signs (Past 12 Hours) Vital Signs Temp Pulse Pulse Resp BP BP Pulse Ox 08/20/21 19:40 98.2 F 91 H 18 102/80 100 08/20/21 18:21 87 18 103/71 100 08/20/21 17:52 86 14 104/65 100 08/20/21 16:48 97.3 F L 93 H 20 89/59 L 98 Laboratory Results Laboratory Results WBC 9.13 K/uL (4.8-10.8) 08/20/21 18: RBC 3.40 M/uL (4.7-6.1) L 08/20/21 18: Hgb 12.3 g/dL (14.0-18.0) L 08/20/21 18:02 Hct 36.6 % (42-52) L 08/20/21 18: MCV 107.6 fL (80-100) H 08/20/21 18:02 MCH 36.2 pg (25-34) H 08/20/21 18: MCHC 33.6 g/dL (32-36) 08/20/21 18:02 RDW Std Deviation 50.3 fL (36.4-46.3) H 08/20/21 18:02 RDW Coeff of Machelle 12.7 % (11.5-14.5) 08/20/21 18:02 Plt Count 417 K/uL (130-400) H 08/20/21 18:02 MPV 9.0 fL (7.4-10.4) 08/20/21 18:02 Immature Gran % (Auto) 0.3 % 08/20/21 18:02 Neut % (Auto) 63.3 % 08/20/21 18:02 Lymph % (Auto) 18.3 % 08/20/21 18:02 [place] % (Auto) 8.0 % 08/20/21 18:02 Eos % (Auto) 9.3 % 08/20/21 18:02 Baso % (Auto) 0.8 % 08/20/21 18:02 Neut # (Auto) 5.78 K/uL (1.4-6.5) 08/20/21 18:02 Lymph # (Auto) 1.67 K/uL (1.2-3.4) 08/20/21 18:02 [place] # (Auto) 0.73 K/uL (0.11-0.59) H 08/20/21 18:02 Eos # (Auto) 0.85 K/uL (0-0.5) H 08/20/21 18:02 Baso # (Auto) 0.07 K/uL (0-0.2) 08/20/21 18:02 Immature Gran # (Auto) 0.03 K/uL (0.00-0.02) H 08/20/21 18:02 ESR 84 mm/hr (0-15) H 08/20/21 18:02 PT 10.9 Seconds (9.0-12.0) 08/20/21 18:54 INR 1.1 (0.9-1.1) 08/20/21 18:54 Sodium 133 mmol/L (136-145) L 08/20/21 18:02 Potassium 5.1 mmol/L (3.5-5.1) 08/20/21 18:02 Chloride 103 mmol/L (98-107) 08/20/21 18:02 Carbon Dioxide 20 mmol/L (21-32) L 08/20/21 18:02 Anion Gap 10.0 (3-11) 08/20/21 18:02 BUN 57 mg/dl (7-18) H 08/20/21 18: Creatinine 4.25 mg/dl (0.6-1.4) H 08/20/21 18:02 Est Cr Clr Drug Dosing 27.5 ml/min 08/20/21 18:02 Est GFR ( Amer) 18.5 ml/min 08/20/21 18:02 Est GFR (Non-Af Amer) 16.0 ml/min 08/20/21 18:02 BUN/Creatinine Ratio 13.3 (10-20) 08/20/21 18:02 Glucose 92 mg/dl (70-99) 08/20/21 18: Lactate 1.0 mmol/L (0.4-2.0) 08/20/21 18:54 Calcium 10.1 mg/dl (8.5-10.1) 08/20/21 18:02 Phosphorus 4.5 mg/dl (2.5-4.9) 08/20/21 18:54 Magnesium 2.1 mg/dl (1.8-2.4) 08/20/21 18:54 Total Bilirubin 0.4 mg/dl (0.2-1) 08/20/21 18:02 AST 35 U/L (15-37) 08/20/21 18:02 ALT 49 U/L (12-78) 08/20/21 18:02 Alkaline Phosphatase 184 U/L (45-117) H 08/20/21 18:02 Troponin I < 0.015 ng/ml (0-0.045) 08/20/21 18:54 C-Reactive Protein 5.52 mg/dl (0-0.29) H 08/20/21 18:54 Total Protein 9.1 gm/dl (6.4-8.2) H 08/20/21 18:02 Albumin 3.5 gm/dl (3.4-5.0) 08/20/21 18:02 Globulin 5.6 gm/dl (2.5-4.0) H 08/20/21 18:02 Albumin/Globulin Ratio 0.6 (0.9-2) L 08/20/21 18:02 Procalcitonin 0.38 ng/ml (0-0.5) 08/20/21 18:54 Urine Color Yellow 08/21/21 01:42 Urine Appearance Clear (Clear) 08/21/21 01:42 Urine pH 5.0 (4.5-7.5) 08/21/21 01:42 Ur Specific [place] 1.012 (1.000-1.030) 08/21/21 01:42 Urine Protein 1+ (Negative) H 08/21/21 01:42 Urine Glucose (UA) Negative (Negative) 08/21/21 01:42 Urine Ketones Negative (Negative) 08/21/21 01:42 Urine Blood Trace (Negative) H 08/21/21 01:42 Urine Nitrite Negative (Negative) 08/21/21 01:42 Urine Bilirubin Negative (Negative) 08/21/21 01:42 Urine Urobilinogen Negative (Negative) 08/21/21 01:42 Ur Leukocyte Esterase Negative (Negative) 08/21/21 01:42 Urine WBC (Auto) 0 /hpf (0-5) 08/21/21 01:42 Urine RBC (Auto) 0-4 /hpf (0-4) 08/21/21 01:42 U Hyaline Cast (Auto) 0 /lpf (0-5) 08/21/21 01:42 U Epithel Cells (Auto) 0-5 /lpf (0-5) 08/21/21 01:42 Urine Bacteria (Auto) Negative (Negative) 08/21/21 01:42 Ur Random Creatinine 77.0 mg/dl 08/21/21 01:42 Ur Random Sodium 91 mmol/L 08/21/21 01:42 Ur Random Urea Nitrogn 367 mg/dl 08/21/21 01:42 COVID-19 Eval Order Covid19 at [facility] 08/20/21 18:54 SARS-CoV-2 (PCR) NEGATIVE (Negative) 08/20/21 18:54 Impressions Chest X-Ray 08/20/21 18:40 XR chest 1V portable CLINICAL HISTORY: SEPSIS COMPARISON STUDY: Chest radiograph August 15, 2021. FINDINGS: Lung volumes are normal. Lungs are clear. There is no pneumothorax or pleural effusion. Cardiac size is normal. Mediastinal contours are normal. There is no evidence for pulmonary edema. IMPRESSION: No acute cardiopulmonary findings. ACT 112: Negative or not required by law. Electronically signed by: Manjit Cali M.D. 08/20/2021 7:22 PM Ankle X-Ray 08/20/21 18:41 XR ankle LT min 3V routine CLINICAL HISTORY: L forefoot abscess, eval osseous involvement COMPARISON: Left tibia and fibula radiographs August 09, 2018. MRI of the left lower leg August 10, 2018. FINDINGS: Alignment of the left ankle is anatomic. No acute fracture. There is no radiographic evidence of acute osteomyelitis. Osteopenia is noted. This has progressed since prior exam. Posterior and plantar calcaneal spurring is noted. Talonavicular joint osteophytosis is noted. IMPRESSION: 1. No acute fracture. No evidence for acute osteomyelitis within the left ankle. 2. Osteopenia. 3. Talonavicular joint osteophytosis and joint space narrowing. ACT 112: Negative or not required by law. Electronically signed by: Manjit Cali M.D. 08/20/2021 7:19 PM Foot X-Ray 08/20/21 18:41 XR foot LT min 3V routine CLINICAL HISTORY: L forefoot abscess, eval osseous involve COMPARISON: Left foot radiographs September 29, 2019. FINDINGS: Alignment of the left foot is anatomic. Tarsometatarsal joints are intact. There is osteopenia. No acute fracture is identified. There is no radiographic evidence for osteomyelitis. A few locules of soft tissue gas of the dorsal left forefoot are noted. These are the level of the distal shaft of the left fifth metatarsal. IMPRESSION: 1. No acute fracture. No evidence for acute osteomyelitis within the left foot. 2. A few locules of soft tissue gas the dorsal left forefoot, as described above. These could be related to an abscess or wound. A gas-forming organism cannot be excluded. ACT 112: Negative or not required by law. Electronically signed by: Manjit Cali M.D. 08/20/2021 7:29 PM Code Status & VTE Plan Code Status Full code VTE Prophylaxis Plan VTE Prophylaxis will be ordered: Yes PG Care Time/CCT Total # of Minutes Spent Total Time Spent with Patient: Total time spent is greater than 50% in coordination of care (as documented) at patient's floor/unit and/or counseling patient: Coding Level of Care Code 95615 Initial Inpt Care Lvl 3 Diagnoses Left foot infection L08.9 Acute kidney injury superimposed on chronic kidney disease N17.9; N18.9 Hypotensive episode I95.9 HTN (hypertension) I10 Chronic kidney disease with symptom management only, stage 4 (severe) N18.4
[2021-08-20] MEDS ORDERED: SODIUM CHLORIDE 0.9% 1000ML 1,000 ML IV SCH (23:08)
[2021-08-20] MEDS ORDERED: ONDANSETRON INJ 2 MG/ML 2 ML VIAL IV PRN (23:08)
[2021-08-21] MEDS: APIXABAN 5 MG TABLET PO SCH ×3 (00:28→19:34)
[2021-08-21 01:54] LABS: Appearance Urine Clear (Clear); Bacteria Urine Automated Negative (Negative); Bilirubin Urine Negative (Negative); Blood Urine Trace (Negative); Cast Urine Automated 0 /lpf (0-5); Color Urine Yellow; Epithelial Cell Urine Auto 0-5 /lpf (0-5); Glucose Urine UA Negative (Negative); Ketones Urine Negative (Negative); Leukocyte Esterase Urine Negative (Negative); Nitrite Urine Negative (Negative); Protein Urine 1+ (Negative); RBC Urine Automated 0-4 /hpf (0-4); Specific Gravity Urine 1.012 (1.000-1.030); Urobilinogen Urine Negative (Negative); WBC Urine Automated 0 /hpf (0-5)
[2021-08-21] MEDS: PIPERACILLIN/TAZOBACTAM 3.375 GM in DEXTROSE 5% 100 ML IV SCH ×3 (02:25→18:03)
[2021-08-21 06:37] LABS: Creatinine Clr Calc Pharmacy 33.2 ml/min; Est GFR (African American) 23.2 ml/min
--- NOTE | 2021-08-21 07:31 | CT Scan Report ---
LEFT FOOT CT CT DOSE: 183.03 mGy.cm HISTORY: L forefoot abscess, eval for osseous involvement. TECHNIQUE: Multiaxial CT images of the left foot were performed and reformatted in the sagittal and c oronal plane without the use of contrast. A dose lowering technique was utilized adhering to the [facility]. COMPARISON: Left foot radiograph 08/20/2021. FINDINGS: Focal skin thickening with subcutaneous edema within the left lateral forefoot with 2 small locules of subcutaneous gas best seen image 47 of 69. Small focal fluid collection surrounding these locules of gas within the subcutaneous soft tissues which measures approximately 2.2 x 1.4 cm. This favors a small subcutaneous abscess. Additional areas of subcutaneous edema within the left lateral f orefoot may represent phlegmon/developing abscesses. These measure up to 3 cm. No underlying bony óscar truction to suggest osteomyelitis. Degenerative changes seen within the midfoot. Small plantar and po sterior calcaneal spurs are noted. IMPRESSION: Focal skin thickening with subcutaneous edema within the left lateral forefoot with 2 small locules o f subcutaneous gas. Small focal fluid collection surrounding these locules of gas within the subcutan eous soft tissues which measures approximately 2.2 x 1.4 cm. This favors a small subcutaneous abscess . Additional areas of subcutaneous edema within the left lateral forefoot may represent phlegmon/deve loping abscesses. These measure up to 3 cm. ACT 112: Negative or not required by law. Electronically signed by: Omar Duque M.D. 08/21/2021 7:30 AM
--- NOTE | 2021-08-21 08:29 | CT Scan Report ---
CT OF THE ABDOMEN AND PELVIS WITHOUT CONTRAST CLINICAL HISTORY: hypotension, acute on chronic RF COMPARISON STUDY: KUB January 06, 2017. Doppler renal ultrasound January 06, 2017. TECHNIQUE: Axial images of the abdomen and pelvis were obtained without IV contrast. Images were revi ewed in the axial, sagittal, and coronal planes. Automated exposure control was utilized for the arun dy. A dose lowering technique was utilized adhering to the principles of ALARA. FINDINGS: Lung bases are unremarkable. No renal, ureteral or bladder calculi are present. There is no hydronephrosis or hydroureter. Evaluation the remainder of the abdomen and pelvis is suboptimal on t his unenhanced exam. There is hepatic steatosis. Unenhanced images of the spleen and adrenal glands a re unremarkable. There is no pericholecystic infiltration. There is mild peripancreatic stranding. Th ere is no pancreatic ductal dilatation. Note is made of a 3.8 x 3.4 cm cystic lesion within the pancr eatic head. No additional pancreatic or peripancreatic fluid collections or lesions are identified. T he appendix is normal. No evidence for a bowel obstruction. No acute fracture or suspicious lesion is identified within the visualized skeletal structures. IMPRESSION: 1. Peripancreatic stranding suggestive of acute pancreatitis. Correlation with serum lipase level is recommended. 2. 3.8 x 3.4 cm cystic lesion within the pancreatic head. A pancreatic pseudocyst is favored however a cystic neoplasm could appear similar. Follow-up nonemergent pancreas protocol MRI is recommended. 3. No biliary or pancreatic ductal dilatation. 4. Hepatic steatosis. ACT 112: Negative or not required by law. Electronically signed by: Manjit Cali M.D. 08/21/2021 8:27 AM
[2021-08-21] MEDS ORDERED: allopurinoL 100 MG TAB PO SCH (09:00)
--- NOTE | 2021-08-21 10:27 | Nephrology Consultation ---
Date of Consultation August 21, 2021 Assessment & Plan (1) JUN (acute kidney injury): Clinically consistent with prerenal physiology from dehydration superimposed on advanced CKD. Non-oliguric. Improvement in creatinine with IVF overnight. Volume status acceptable. Electrolytes normal. No emergent indication for dialysis. Medications appropriately dosed for kidney dysfunction. Monitor CK on daptomycin. UA acellular. CT did not demonstrate obstruction. Additional IVF ordered with 1 L of IV normosol to infuse at 150 ml/hr. I will repeat a metabolic profile this afternoon. Avoid NSAIDS. Hold lisinopril and HCTZ. (2) CKD (chronic kidney disease): Biopsy proven advanced atherosclerotic disease with ischemic changes and history of ATN. Multiple episodes of JUN in the past. Followed by Dr. Guadarrama. CKD IIIB A3 (creatinine ~2.5 with 500 mg/d proteinuria). Goals of care reviewed. (3) Hypotensive episode: Volume depleted in setting of recent GI symptoms. Possible underlying pancreatitis with concerning cyst in head of pancreas. Will require close outpatient follow up. HCTZ held. Lisinopril held. BP acceptable this AM. I have requested pancreatic enzymes with blood work for this afternoon. (4) Chronic venous insufficiency: Remains on dapto and Zosyn for venous ulcer. History of Present Illness Reason for Consultation: JUN/CKD Requesting Physician: Tom Torres MD Attending Physician: Tom Torres MD History of Present Illness Mr. Anthony Sharif is a 41-year-old male with hypertension, gout, chronic venous insufficiency, history of DVT, venous stasis ulcer, and chronic kidney disease IIIB A3. Kidney biopsy in 2018 demonstrated evidence of ATN and severe atherosclerotic changes. Moderate IFTA noted at that time. Baseline creatinine has been ~2.0-2.5 mg/dL. Urine protein on prior 24 h was 500 mg. Anthony follows in the nephrology clinic with Dr. Guadarrama. Unfortunately, over the past several months there has been progressive decline in kidney function. Renal artery duplex did not demonstrate evidence of significant DINH. BP had been managed with lisinopril and HCTZ. Unfortunately, Anthony has been struggling with symptomatic low BP. He was evaluated in the ER at [facility] on August 15 for blurry vision and lightheadedness. Creatinine was found to be slightly elevated at 2.74 mg/dL. Lisinopril was held. On follow up laboratory studies, creatinine continued to rise to 4.25 mg/dL yesterday. Anthony was referred to the ER by Dr. Guadarrama for evaluation. UA demonstrated 1+ protein and trace blood with negative microscopy. CT scan demonstrated unobstructed kidneys normal in size. Noted that the CT did demonstrate pancreatic stranding consistent with pancreatitis. There is also note of a 3.8 x 3.4 cm lesion in the head of the pancreas. Anthony denies significant alcohol use. He states he has a couple of drinks every few days but no drinks in approximately 1 week. He has been having some GI symptoms, including loose watery stool approximately 3 times per day and decreased appetite as well as nausea for approximately 1 week. He threw up after eating a couple of times within the past week. He denies hematemesis. He denies significant abdominal pain. Similar symptoms in the past have been associated with gastroenteritis which Anthony seems to suffer from a few times each year so he was not overly concerned. He is feeling markedly better this AM. He was able to eat breakfast without any symptoms. Anthony has a notable history of venous stasis and prior DVT. He has been anticoagulated with Eliquis for a DVT in 2018. He has chronic stasis changes and a history of venous ulcers. Wound care has been following an ulcer on his left foot. X-ray obtained in the ER did not demonstrate findings of osteomyelitis. IV antibiotic therapy with Daptomycin and Zosyn has been provided. Allergies Allergy/AdvReac Type Severity Reaction Status Date / Time doxycycline Allergy Severe Joint Verified 08/20/21 19:18 Pain, Shortness of breath cephalexin Allergy Mild throat Verified 08/20/21 19:18 swells Cipro Allergy Mild throat Verified 06/09/18 08:28 swells ciprofloxacin Allergy Mild throat Verified 08/20/21 19:18 swells Home Medications Medication Instructions Recorded Confirmed Type apixaban 5 mg tablet 5 mg PO BID #180 tab 11/07/20 08/20/21 Rx hydrochlorothiazide 25 mg tablet 25 mg PO QAM #90 tab 05/31/21 08/20/21 Rx allopurinol 100 mg tablet 100 mg PO DAILY #90 tab 06/18/21 08/20/21 Rx Patient History Medical History Acute kidney injury Arthritis Chronic kidney disease with symptom management only, stage 4 (severe) Chronic venous insufficiency Deep vein thrombosis 07/2018/CHRONIC- ON ELIQUIS HTN (hypertension) MVP (mitral valve prolapse) 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 ECHO Secondary hyperparathyroidism of renal origin Staphylococcus aureus infection Superficial thrombosis of leg PER RECORDS UTI (urinary tract infection) Venous ulcer RECURRENT VENOUS ULCERATION (REASON FOR PROCEDURE) Vitamin D deficiency Vitamin D deficiency Surgical History Hx of biopsy LEFT KIDNEY S/P vascular surgery LLE 2/2 VENOUS INSUFFICIENCY Family History Mother FHx: lung cancer Hypertension Breast cancer Brother FHx: testicular cancer Hypertension Father Hypertension Unknown Myocardial infarction Social History Smoking Status: Never smoker Second Hand Exposure: No; Do You Dip or Chew Tobacco: No; Hx Alcohol Use: Yes Alcohol type: beer, wine and hard liquor Alcohol Intake Frequency Comment: daily Hx Substance Use: No Preferred Language: Hungarian Communication Ability: Effective Visual Impairment: No Limitations Channel Development Director Required: No Beliefs That Will Affect Care: None marital status: Current Living Situation: Significant Other Current Living Situation Comment: Fiance Other Information That Helps Us Care for You: No Feels Safe at Home: Yes Safety Concerns: Feels Safe At This Time Assistive Devices: None Review of Systems Review of Systems: All systems reviewed & are unremarkable except as noted in HPI & below Physical Exam Constitutional: well developed; no acute distress Eyes: no scleral abnormality and no corneal abnormality ENMT: Mouth: no oral mucosal abnormality and oral mucous membranes not dry Neck: normal visual inspection and trachea midline Respiratory: normal respiratory effort Auscultation: lungs clear to auscultation bilaterally Cardiovascular: Rate/Rhythm: regular rate Heart Sounds: normal S1 and normal S2 Extremities: no edema Musculoskeletal: Extremities: no cyanosis and no clubbing Skin: normal turgor and + ulcer chronic stasis changes Neurologic: Motor/Sensory: no tremor and no asterixis Psychiatric: Orientation: alert and oriented x 3 Results & Data ([facility]) Vital Signs (Past 12 Hours) Vital Signs Temp Pulse Pulse Resp BP BP Pulse Ox 08/21/21 07:45 36.8 C 80 16 98/63 L 100 08/21/21 04:45 36.7 C 85 18 97/61 L 100 08/21/21 01:17 79 08/21/21 00:36 36.8 C 84 18 106/69 100 08/20/21 23:30 36.8 C 84 18 106/69 100 08/20/21 22:50 36.7 C 88 18 112/66 100 Laboratory Results Laboratory Results - last 24 hr 08/20/21 08/20/21 08/20/21 18:02 18:02 18:02 WBC 9.13 RBC 3.40 L Hgb 12.3 L Hct 36.6 L MCV 107.6 H MCH 36.2 H MCHC 33.6 RDW Std Deviation 50.3 H RDW Coeff of Machelle 12.7 Plt Count 417 H MPV 9.0 Immature Gran % (Auto) 0.3 Neut % (Auto) 63.3 Lymph % (Auto) 18.3 Hall % (Auto) 8.0 Eos % (Auto) 9.3 Baso % (Auto) 0.8 Neut # (Auto) 5.78 Lymph # (Auto) 1.67 Hall # (Auto) 0.73 H Eos # (Auto) 0.85 H Baso # (Auto) 0.07 Immature Gran # (Auto) 0.03 H ESR 84 H PT INR Sodium 133 L Potassium 5.1 Chloride 103 Carbon Dioxide 20 L Anion Gap 10.0 BUN 57 H Creatinine 4.25 H Est Cr Clr Drug Dosing 27.5 Est GFR ( Amer) 18.5 Est GFR (Non-Af Amer) 16.0 BUN/Creatinine Ratio 13.3 Glucose 92 Lactate Calcium 10.1 Phosphorus Magnesium Total Bilirubin 0.4 AST 35 ALT 49 Alkaline Phosphatase 184 H Troponin I C-Reactive Protein Total Protein 9.1 H Albumin 3.5 Globulin 5.6 H Albumin/Globulin Ratio 0.6 L Procalcitonin Urine Color Urine Appearance Urine pH Ur Specific [place] Urine Protein Urine Glucose (UA) Urine Ketones Urine Blood Urine Nitrite Urine Bilirubin Urine Urobilinogen Ur Leukocyte Esterase Urine WBC (Auto) Urine RBC (Auto) U Hyaline Cast (Auto) U Epithel Cells (Auto) Urine Bacteria (Auto) Ur Random Creatinine Ur Random Sodium Ur Random Urea Nitrogn COVID-19 Eval Order SARS-CoV-2 (PCR) 08/20/21 08/20/21 08/20/21 18:54 18:54 18:54 WBC RBC Hgb Hct MCV MCH MCHC RDW Std Deviation RDW Coeff of Machelle Plt Count MPV Immature Gran % (Auto) Neut % (Auto) Lymph % (Auto) Hall % (Auto) Eos % (Auto) Baso % (Auto) Neut # (Auto) Lymph # (Auto) Hall # (Auto) Eos # (Auto) Baso # (Auto) Immature Gran # (Auto) ESR PT 10.9 INR 1.1 Sodium Potassium Chloride Carbon Dioxide Anion Gap BUN Creatinine Est Cr Clr Drug Dosing Est GFR ( Amer) Est GFR (Non-Af Amer) BUN/Creatinine Ratio Glucose Lactate Calcium Phosphorus 4.5 Magnesium 2.1 Total Bilirubin AST ALT Alkaline Phosphatase Troponin I < 0.015 C-Reactive Protein Total Protein Albumin Globulin Albumin/Globulin Ratio Procalcitonin 0.38 Urine Color Urine Appearance Urine pH Ur Specific [place] Urine Protein Urine Glucose (UA) Urine Ketones Urine Blood Urine Nitrite Urine Bilirubin Urine Urobilinogen Ur Leukocyte Esterase Urine WBC (Auto) Urine RBC (Auto) U Hyaline Cast (Auto) U Epithel Cells (Auto) Urine Bacteria (Auto) Ur Random Creatinine Ur Random Sodium Ur Random Urea Nitrogn COVID-19 Eval Order SARS-CoV-2 (PCR) 08/20/21 08/20/21 08/20/21 18:54 18:54 18:54 WBC RBC Hgb Hct MCV MCH MCHC RDW Std Deviation RDW Coeff of Machelle Plt Count MPV Immature Gran % (Auto) Neut % (Auto) Lymph % (Auto) Hall % (Auto) Eos % (Auto) Baso % (Auto) Neut # (Auto) Lymph # (Auto) Hall # (Auto) Eos # (Auto) Baso # (Auto) Immature Gran # (Auto) ESR PT INR Sodium Potassium Chloride Carbon Dioxide Anion Gap BUN Creatinine Est Cr Clr Drug Dosing Est GFR ( Amer) Est GFR (Non-Af Amer) BUN/Creatinine Ratio Glucose Lactate 1.0 Calcium Phosphorus Magnesium Total Bilirubin AST ALT Alkaline Phosphatase Troponin I C-Reactive Protein Total Protein Albumin Globulin Albumin/Globulin Ratio Procalcitonin Urine Color Urine Appearance Urine pH Ur Specific [place] Urine Protein Urine Glucose (UA) Urine Ketones Urine Blood Urine Nitrite Urine Bilirubin Urine Urobilinogen Ur Leukocyte Esterase Urine WBC (Auto) Urine RBC (Auto) U Hyaline Cast (Auto) U Epithel Cells (Auto) Urine Bacteria (Auto) Ur Random Creatinine Ur Random Sodium Ur Random Urea Nitrogn COVID-19 Eval Order Covid19 at [facility] SARS-CoV-2 (PCR) NEGATIVE 08/20/21 08/20/21 08/21/21 18:54 19:06 01:42 WBC RBC Hgb Hct MCV MCH MCHC RDW Std Deviation RDW Coeff of Machelle Plt Count MPV Immature Gran % (Auto) Neut % (Auto) Lymph % (Auto) Hall % (Auto) Eos % (Auto) Baso % (Auto) Neut # (Auto) Lymph # (Auto) Hall # (Auto) Eos # (Auto) Baso # (Auto) Immature Gran # (Auto) ESR PT INR Sodium Potassium Chloride Carbon Dioxide Anion Gap BUN Creatinine Est Cr Clr Drug Dosing Est GFR ( Amer) Est GFR (Non-Af Amer) BUN/Creatinine Ratio Glucose Lactate Calcium Phosphorus Magnesium Total Bilirubin AST ALT Alkaline Phosphatase Troponin I C-Reactive Protein 5.52 H Total Protein Albumin Globulin Albumin/Globulin Ratio Procalcitonin Urine Color Yellow Yellow Urine Appearance Clear Clear Urine pH 5.5 5.0 Ur Specific [place] 1.016 1.012 Urine Protein 2+ H 1+ H Urine Glucose (UA) Negative Negative Urine Ketones Trace H Negative Urine Blood Trace H Trace H Urine Nitrite Negative Negative Urine Bilirubin Negative Negative Urine Urobilinogen Negative Negative Ur Leukocyte Esterase Negative Negative Urine WBC (Auto) 1-5 0 Urine RBC (Auto) 0-4 0-4 U Hyaline Cast (Auto) 10-30 H 0 U Epithel Cells (Auto) 10-20 H 0-5 Urine Bacteria (Auto) Negative Negative Ur Random Creatinine Ur Random Sodium Ur Random Urea Nitrogn COVID-19 Eval Order SARS-CoV-2 (PCR) 08/21/21 08/21/21 01:42 05:37 WBC RBC Hgb Hct MCV MCH MCHC RDW Std Deviation RDW Coeff of Machelle Plt Count MPV Immature Gran % (Auto) Neut % (Auto) Lymph % (Auto) Hall % (Auto) Eos % (Auto) Baso % (Auto) Neut # (Auto) Lymph # (Auto) Hall # (Auto) Eos # (Auto) Baso # (Auto) Immature Gran # (Auto) ESR PT INR Sodium Potassium Chloride Carbon Dioxide Anion Gap BUN Creatinine 3.52 H D Est Cr Clr Drug Dosing 33.2 Est GFR ( Amer) 23.2 Est GFR (Non-Af Amer) 20.0 BUN/Creatinine Ratio Glucose Lactate Calcium Phosphorus Magnesium Total Bilirubin AST ALT Alkaline Phosphatase Troponin I C-Reactive Protein Total Protein Albumin Globulin Albumin/Globulin Ratio Procalcitonin Urine Color Urine Appearance Urine pH Ur Specific [place] Urine Protein Urine Glucose (UA) Urine Ketones Urine Blood Urine Nitrite Urine Bilirubin Urine Urobilinogen Ur Leukocyte Esterase Urine WBC (Auto) Urine RBC (Auto) U Hyaline Cast (Auto) U Epithel Cells (Auto) Urine Bacteria (Auto) Ur Random Creatinine 77.0 Ur Random Sodium 91 Ur Random Urea Nitrogn 367 COVID-19 Eval Order SARS-CoV-2 (PCR) PG Care Time/CCT Total # of Minutes Spent Total Time Spent with Patient: Total time spent is greater than 50% in coordination of care (as documented) at patient's floor/unit and/or counseling patient: Coding Level of Care Code 03959 Inpt Consult Level 4 Diagnoses JUN (acute kidney injury) N17.9 CKD (chronic kidney disease) N18.9 Chronic kidney disease stage: unspecified stage Hypotensive episode I95.9 Chronic venous insufficiency I87.2 (1) CKD (chronic kidney disease) Chronic kidney disease stage: unspecified stage Qualified Code(s): N18.9 - Chronic kidney disease, unspecified
[2021-08-21] MEDS ORDERED: NORMOSOL-R 1,000 ML IV SCH (10:30)
--- NOTE | 2021-08-21 12:45 | Hospitalist Progress Note ---
Date of Service August 21, 2021 Assessment & Plan (1) Left foot infection: Plan: Long-standing ulcers of left foot. Has seen Wound Care for years. - Follow culture and sensitivity of drainage from 08/20. - Follow blood cultures - Continue daptomycin IV and Zosyn IV begun in the ED - Consulted wound care (2) Acute kidney injury superimposed on chronic kidney disease: Plan: Creatinine 4.25 upon admission, with recent creatinines from 08/14: 2.74-3.35-3.54, and now 4.25 - Hold HCTZ - Continue IV fluid rehydration - Consulted nephrology - Appreciate recs (3) Hypotensive episode: Plan: Blood pressure initially 88/64, responded to IV fluids to 106/69. Presently 116/75. - Continue rehydration per nephrology - Hold HCTZ (4) HTN (hypertension): Plan: As above (5) Chronic kidney disease with symptom management only, stage 4 (severe): Plan: See above. - Will reduce allopurinol to 50 mg PO daily for CrCl (6) Chronic venous insufficiency: Plan: Per vascular note from 12/06/2020, hx of: Left GSV radiofrequency ablation, left remnant GSV Venaseal, right GSV Venaseal, and left pathologic music executive radiofrequency ablation. - F/u with vascular - No inpatient needs (7) DVT prophylaxis: Plan: Hx of DVT in 07/2018. - Continue apixaban Admission and Anticipated Discharge Date Admission Date: August 20, 2021 Subjective Doing better today. No dizziness today. No major foot pain. Reports no fevers/chills, chest pain, shortness of breath, abdominal pain, nausea, or vomiting. Physical Exam Constitutional: WD/WN, vitals as above Eyes: EOM intact bilaterally; no conjunctival abnormality ENMT: external ear and nose normal, oropharynx normal Neck: trachea midline, no thyromegaly normal visual inspection Respiratory: normal respiratory effort, lungs clear to auscultation no respiratory distress Cardiovascular: RRR, no murmur, no edema Gastrointestinal (Abdomen): Inspection/Auscultation: abdomen normal to inspection; abdomen not distended Musculoskeletal: no cyanosis or clubbing, extremities motor strength 5/5 Skin: no rashes, warm and dry + ulcer (On left foot.) Neurologic: moves all extremities and awake Psychiatric: Orientation: alert, oriented to person and cooperative Results & Data Results & Data ([facility]) Vital Signs (Past 12 Hours) Vital Signs Temp Pulse Pulse Resp BP Pulse Ox 08/21/21 11:01 36.7 C 84 20 116/73 99 08/21/21 07:45 36.8 C 80 16 98/63 L 100 08/21/21 04:45 36.7 C 85 18 97/61 L 100 08/21/21 01:17 79 08/21/21 00:36 36.8 C 84 18 106/69 100 PG Care Time/CCT Total # of Minutes Spent Total Time Spent with Patient: Total time spent is greater than 50% in coordination of care (as documented) at patient's floor/unit and/or counseling patient: Coding Level of Care Code 07821 Subseq Hosp Care Lvl 3 Diagnoses Left foot infection L08.9 Acute kidney injury superimposed on chronic kidney disease N17.9; N18.9 Hypotensive episode I95.9 HTN (hypertension) I10 Chronic kidney disease with symptom management only, stage 4 (severe) N18.4 Chronic venous insufficiency I87.2 DVT prophylaxis Z29.9
[2021-08-21 14:55] LABS: Albumin Level 2.6 gm/dl (3.4-5.0); Calcium 8.9 mg/dl (8.5-10.1); Creatinine Clr Calc Pharmacy 39.5 ml/min; Est GFR (African American) 28.6 ml/min; Est GFR (Non-African American) 24.7 ml/min; Potassium 4.7 mmol/L (3.5-5.1)
[2021-08-21 15:16] LABS: Albumin Globulin Ratio 0.6 (0.9-2); Bilirubin,Total 0.5 mg/dl (0.2-1); Globulin 4.7 gm/dl (2.5-4.0); Phosphorus 2.7 mg/dl (2.5-4.9); Total Protein 7.3 gm/dl (6.4-8.2)
[2021-08-21] MEDS: LACTATED RINGER'S 1,000 ML IV SCH (18:02)
[2021-08-21] MEDS: DAPTOmycin 350 MG in SYRINGE 0 ML IV SCH (18:02)
[2021-08-22] MEDS: LACTATED RINGER'S 1,000 ML IV SCH ×3 (02:11→19:33)
[2021-08-22] MEDS: PIPERACILLIN/TAZOBACTAM 3.375 GM in DEXTROSE 5% 100 ML IV SCH ×3 (02:11→20:24)
--- NOTE | 2021-08-22 04:48 | Electrocardiogram Report ---
Test Reason : Blood Pressure : / mmHG Vent. Rate : 090 BPM Atrial Rate : 090 BPM P-R Int : 210 ms QRS Dur : 076 ms QT Int : 358 ms P-R-T Axes : 039 005 041 degrees QTc Int : 437 ms Sinus rhythm with 1st degree A-V block Otherwise normal ECG When compared with ECG of 15-AUG-2021 11:46, No significant change was found Confirmed by Viraj Elizalde ([id number]) on 08/22/2021 4:47:46 AM Referred By: REFERRED SELF Confirmed By:Viraj Elizalde
[2021-08-22 07:56] LABS: Creatinine Clr Calc Pharmacy 48.7 ml/min; Est GFR (African American) 36.9 ml/min; Est GFR (Non-African American) 31.8 ml/min
[2021-08-22] MEDS: APIXABAN 5 MG TABLET PO SCH (08:06)
--- NOTE | 2021-08-22 09:55 | Nephrology Progress Note ---
Date of Service August 22, 2021 Assessment & Plan (1) JUN (acute kidney injury): Plan: Clinically consistent with prerenal physiology from dehydration superimposed on advanced CKD. Non-oliguric. Improvement in creatinine with IVF overnight. Volume status acceptable. Electrolytes normal. No emergent indication for dialysis. Medications appropriately dosed for kidney dysfunction. Monitor CK on daptomycin. UA acellular. CT did not demonstrate obstruction. Continue IV LR or normosol infusion to encourage positive fluid balance - notably while NPO. I will repeat a metabolic profile this afternoon. Avoid NSAIDS. Hold lisinopril and HCTZ. (2) CKD (chronic kidney disease): Plan: Biopsy proven advanced atherosclerotic disease with ischemic changes and history of ATN. Multiple episodes of JUN in the past. Followed by Dr. Guadarrama. CKD IIIB A3 (creatinine ~2.5 with 500 mg/d proteinuria). Goals of care reviewed. (3) Hypotensive episode: Plan: Volume depleted in setting of recent GI symptoms. Possible underlying pancreatitis with cyst in head of pancreas. Will require close outpatient follow up. HCTZ held. Lisinopril held. BP acceptable this AM. Ortho planning ID of foot lesion. Cardiac clearance pending. (4) Chronic venous insufficiency: Plan: Remains on dapto and Zosyn for venous ulcer. Admission and Anticipated Discharge Date Admission Date: August 20, 2021 Subjective No acute events overnight. Denies abdominal pain. No fevers or chills. No nausea or vomiting. I discussed the plan of care with Dr. Torres this AM. Review of Systems Review of Systems: All systems reviewed & are unremarkable except as noted in HPI & below Physical Exam Constitutional: well developed; no acute distress Eyes: no scleral abnormality and no corneal abnormality ENMT: Mouth: no oral mucosal abnormality and oral mucous membranes not dry Neck: normal visual inspection and trachea midline Respiratory: normal respiratory effort Auscultation: lungs clear to auscultation bilaterally Cardiovascular: Rate/Rhythm: regular rate Heart Sounds: normal S1 and normal S2 Extremities: no edema Musculoskeletal: Extremities: no cyanosis and no clubbing Skin: normal turgor and + ulcer Neurologic: Motor/Sensory: no tremor and no asterixis Psychiatric: Orientation: alert and oriented x 3 Results & Data ([facility]) Vital Signs (Past 12 Hours) Vital Signs Temp Pulse Pulse Pulse Resp BP Pulse Ox 08/22/21 07:26 36.4 C L 80 14 109/76 97 10/27/21 04:00 36.8 C 85 18 95/57 L 96 08/21/21 23:29 36.9 C 89 18 111/76 100 08/21/21 22:19 93 H Laboratory Results Laboratory Results - last 24 hr 08/21/21 08/22/21 14:00 06:35 Sodium 137 Potassium 4.7 Chloride 109 H Carbon Dioxide 22 Anion Gap 6.0 BUN 47 H Creatinine 2.96 H D 2.40 H D Est Cr Clr Drug Dosing 39.5 48.7 Est GFR ( Amer) 28.6 36.9 Est GFR (Non-Af Amer) 24.7 31.8 BUN/Creatinine Ratio 16.0 Glucose 104 H Calcium 8.9 Phosphorus 2.7 D Total Bilirubin 0.5 AST 50 H ALT 50 Alkaline Phosphatase 154 H Total Protein 7.3 Albumin 2.6 L Globulin 4.7 H Albumin/Globulin Ratio 0.6 L Amylase 1005 H Lipase 37659 H 9782 H PG Care Time/CCT Total # of Minutes Spent Total Time Spent with Patient: Total time spent is greater than 50% in coordination of care (as documented) at patient's floor/unit and/or counseling patient: Coding Level of Care Code 76971 Subseq Hosp Care Lvl 3 Diagnoses JUN (acute kidney injury) N17.9 CKD (chronic kidney disease) N18.9 Chronic kidney disease stage: unspecified stage Hypotensive episode I95.9 Chronic venous insufficiency I87.2 (1) CKD (chronic kidney disease) Chronic kidney disease stage: unspecified stage Qualified Code(s): N18.9 - Chronic kidney disease, unspecified
--- NOTE | 2021-08-22 10:53 | Orthopedic Consultation ---
Date of Consultation August 22, 2021 Assessment & Plan (1) Abscess of left foot: Patient require irrigation debridement of the abscess of the left foot. Patient has already had breakfast this morning. We will attempt to see if we can get him on the schedule for this evening with Dr. Ghosh for his irrigation debridement. Continue to maintain n.p.o. status for now. History of Present Illness Reason for Consultation: Abscess left foot Attending Physician: Tom Torres MD History of Present Illness The patient is a 41-year-old male with a past medical history including recently worsening CKD, vitamin D deficiency, UTI, history of COVID-19 virus infection, hypertension, CKD stage IV, secondary hyperparathyroidism of renal origin, CVI, tachycardia, venous stasis ulcer of left lower leg with edema. The patient was referred to the emergency department due to a low blood pressure and lightheadedness. Patient states that he is had a long history of lower extremity wounds due to his chronic venous insufficiency that have been treated by the wound care center. 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 He also states he was having increasing pain in that foot. He was sent to the emergency room here and was noted to have a small draining area at the fourth distal metatarsal of his left foot. Drainage was cultured and x-rays were taken. Abscess was noted on the x-ray and a CT scan was performed which showed a 2 x 1 abscess on the dorsum of the left foot. Patient denies any fever or chills at home. Denies nausea or vomiting. We have been asked to see him for his abscess. Allergies Allergy/AdvReac Type Severity Reaction Status Date / Time doxycycline Allergy Severe Joint Verified 08/20/21 19:18 Pain, Shortness of breath cephalexin Allergy Mild throat Verified 08/20/21 19:18 swells Cipro Allergy Mild throat Verified 06/09/18 08:28 swells ciprofloxacin Allergy Mild throat Verified 08/20/21 19:18 swells Home Medications Medication Instructions Recorded Confirmed Type apixaban 5 mg tablet 5 mg PO BID #180 tab 11/07/20 08/20/21 Rx hydrochlorothiazide 25 mg tablet 25 mg PO QAM #90 tab 05/31/21 08/20/21 Rx allopurinol 100 mg tablet 100 mg PO DAILY #90 tab 06/18/21 08/20/21 Rx Patient History Medical History (Updated 08/22/21 @ 17:43 by Viraj Elizalde MD) Acute kidney injury Anemia Arthritis Chronic kidney disease with symptom management only, stage 4 (severe) Chronic venous insufficiency Deep vein thrombosis 07/2018/CHRONIC- ON ELIQUIS HTN (hypertension) MVP (mitral valve prolapse) 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 ECHO Secondary hyperparathyroidism of renal origin Staphylococcus aureus infection Superficial thrombosis of leg PER RECORDS UTI (urinary tract infection) Venous ulcer RECURRENT VENOUS ULCERATION (REASON FOR PROCEDURE) Vitamin D deficiency Surgical History Hx of biopsy LEFT KIDNEY S/P vascular surgery LLE 2/2 VENOUS INSUFFICIENCY Family History Mother FHx: lung cancer Hypertension Breast cancer Brother FHx: testicular cancer Hypertension Father Hypertension Unknown Myocardial infarction Social History Smoking Status: Never smoker Second Hand Exposure: No; Hx Alcohol Use: Yes Alcohol type: beer, wine and hard liquor Alcohol Intake Frequency Comment: daily Hx Substance Use: No Preferred Language: Icelandic Communication Ability: Effective Visual Impairment: No Limitations 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 He is pleasant and cooperative, oriented x3, no acute distress. Examination of his left foot, his sock is removed revealing 2 Optifoam dressings. One is over the fourth metatarsal region. The other is over his medial malleolus. In removing the Optifoam dressing over the fourth metatarsal region, there is a piece of Aquacel Ag that has some drainage noted to it. Taking this off, reveals purulent drainage of an area the fourth metatarsal. There is some mild erythema. There is no foul odor. Removing the Optifoam on the medial malleolar area reveals a 1-1/2 to 2 cm circular ulceration with some mild steward to yellow material in the central base and the proximal edge. Distal edge and base are pink without much in the way of any kind of crusting. Patient will then placed back on the wounds. Results & Data ([facility]) Vital Signs (Past 12 Hours) Vital Signs Temp Pulse Pulse Pulse Resp BP Pulse Ox 08/22/21 10:01 36.5 C 08/22/21 07:26 36.4 C L 80 14 109/76 97 08/22/21 07:00 82 08/22/21 04:00 36.8 C 85 18 95/57 L 96 08/21/21 23:29 36.9 C 89 18 111/76 100 Laboratory Results Laboratory Results WBC 9.13 K/uL (4.8-10.8) 08/20/21 18: RBC 3.40 M/uL (4.7-6.1) L 08/20/21 18: Hgb 12.3 g/dL (14.0-18.0) L 08/20/21 18: Hct 36.6 % (42-52) L 08/20/21 18: MCV 107.6 fL (80-100) H 08/20/21 18:02 MCH 36.2 pg (25-34) H 08/20/21 18: MCHC 33.6 g/dL (32-36) 08/20/21 18: RDW Std Deviation 50.3 fL (36.4-46.3) H 08/20/21 18:02 RDW Coeff of Machelle 12.7 % (11.5-14.5) 08/20/21 18: Plt Count 417 K/uL (130-400) H 08/20/21 18:02 MPV 9.0 fL (7.4-10.4) 08/20/21 18:02 Immature Gran % (Auto) 0.3 % 08/20/21 18:02 Neut % (Auto) 63.3 % 08/20/21 18: Lymph % (Auto) 18.3 % 08/20/21 18:02 Travis % (Auto) 8.0 % 08/20/21 18:02 Eos % (Auto) 9.3 % 08/20/21 18:02 Baso % (Auto) 0.8 % 08/20/21 18:02 Neut # (Auto) 5.78 K/uL (1.4-6.5) 08/20/21 18:02 Lymph # (Auto) 1.67 K/uL (1.2-3.4) 08/20/21 18:02 Travis # (Auto) 0.73 K/uL (0.11-0.59) H 08/20/21 18:02 Eos # (Auto) 0.85 K/uL (0-0.5) H 08/20/21 18:02 Baso # (Auto) 0.07 K/uL (0-0.2) 08/20/21 18:02 Immature Gran # (Auto) 0.03 K/uL (0.00-0.02) H 08/20/21 18:02 ESR 84 mm/hr (0-15) H 08/20/21 18:02 PT 10.9 Seconds (9.0-12.0) 08/20/21 18:54 INR 1.1 (0.9-1.1) 08/20/21 18:54 Sodium 137 mmol/L (136-145) 08/21/21 14:00 Potassium 4.7 mmol/L (3.5-5.1) 08/21/21 14:00 Chloride 109 mmol/L (98-107) H 08/21/21 14:00 Carbon Dioxide 22 mmol/L (21-32) 08/21/21 14:00 Anion Gap 6.0 (3-11) 08/21/21 14:00 BUN 47 mg/dl (7-18) H 08/21/21 14:00 Creatinine 2.40 mg/dl (0.6-1.4) H D 08/22/21 06:35 Est Cr Clr Drug Dosing 48.7 ml/min 08/22/21 06:35 Est GFR ( Amer) 36.9 ml/min 08/22/21 06:35 Est GFR (Non-Af Amer) 31.8 ml/min 08/22/21 06:35 BUN/Creatinine Ratio 16.0 (10-20) 08/21/21 14:00 Glucose 104 mg/dl (70-99) H 08/21/21 14:00 Lactate 1.0 mmol/L (0.4-2.0) 08/20/21 18:54 Calcium 8.9 mg/dl (8.5-10.1) 08/21/21 14:00 Phosphorus 2.7 mg/dl (2.5-4.9) D 08/21/21 14:00 Magnesium 2.1 mg/dl (1.8-2.4) 08/20/21 18:54 Total Bilirubin 0.5 mg/dl (0.2-1) 08/21/21 14:00 AST 50 U/L (15-37) H 08/21/21 14:00 ALT 50 U/L (12-78) 08/21/21 14:00 Alkaline Phosphatase 154 U/L (45-117) H 08/21/21 14:00 Troponin I < 0.015 ng/ml (0-0.045) 08/20/21 18:54 C-Reactive Protein 5.52 mg/dl (0-0.29) H 08/20/21 18:54 Total Protein 7.3 gm/dl (6.4-8.2) 08/21/21 14:00 Albumin 2.6 gm/dl (3.4-5.0) L 08/21/21 14:00 Globulin 4.7 gm/dl (2.5-4.0) H 08/21/21 14:00 Albumin/Globulin Ratio 0.6 (0.9-2) L 08/21/21 14:00 Amylase 1005 U/L (25-115) H 08/21/21 14:00 Lipase 9782 U/L (73-393) H 08/22/21 06:35 Procalcitonin 0.38 ng/ml (0-0.5) 08/20/21 18:54 Urine Color Yellow 08/21/21 01:42 Urine Appearance Clear (Clear) 08/21/21 01:42 Urine pH 5.0 (4.5-7.5) 08/21/21 01:42 Ur Specific [place] 1.012 (1.000-1.030) 08/21/21 01:42 Urine Protein 1+ (Negative) H 08/21/21 01:42 Urine Glucose (UA) Negative (Negative) 08/21/21 01:42 Urine Ketones Negative (Negative) 08/21/21 01:42 Urine Blood Trace (Negative) H 08/21/21 01:42 Urine Nitrite Negative (Negative) 08/21/21 01:42 Urine Bilirubin Negative (Negative) 08/21/21 01:42 Urine Urobilinogen Negative (Negative) 08/21/21 01:42 Ur Leukocyte Esterase Negative (Negative) 08/21/21 01:42 Urine WBC (Auto) 0 /hpf (0-5) 08/21/21 01:42 Urine RBC (Auto) 0-4 /hpf (0-4) 08/21/21 01:42 U Hyaline Cast (Auto) 0 /lpf (0-5) 08/21/21 01:42 U Epithel Cells (Auto) 0-5 /lpf (0-5) 08/21/21 01:42 Urine Bacteria (Auto) Negative (Negative) 08/21/21 01:42 Ur Random Creatinine 77.0 mg/dl 08/21/21 01:42 Ur Random Sodium 91 mmol/L 08/21/21 01:42 Ur Random Urea Nitrogn 367 mg/dl 08/21/21 01:42 COVID-19 Eval Order Covid19 at [facility] 08/20/21 18:54 SARS-CoV-2 (PCR) NEGATIVE (Negative) 08/20/21 18:54 Impressions Ankle X-Ray 08/20/21 18:41 XR ankle LT min 3V routine CLINICAL HISTORY: L forefoot abscess, eval osseous involvement COMPARISON: Left tibia and fibula radiographs August 09, 2018. MRI of the left lower leg August 10, 2018. FINDINGS: Alignment of the left ankle is anatomic. No acute fracture. There is no radiographic evidence of acute osteomyelitis. Osteopenia is noted. This has progressed since prior exam. Posterior and plantar calcaneal spurring is noted. Talonavicular joint osteophytosis is noted. IMPRESSION: 1. No acute fracture. No evidence for acute osteomyelitis within the left ankle. 2. Osteopenia. 3. Talonavicular joint osteophytosis and joint space narrowing. ACT 112: Negative or not required by law. Electronically signed by: Manjit Cali M.D. 08/20/2021 7:19 PM Foot X-Ray 08/20/21 18:41 XR foot LT min 3V routine CLINICAL HISTORY: L forefoot abscess, eval osseous involve COMPARISON: Left foot radiographs September 29, 2019. FINDINGS: Alignment of the left foot is anatomic. Tarsometatarsal joints are intact. There is osteopenia. No acute fracture is identified. There is no radiographic evidence for osteomyelitis. A few locules of soft tissue gas of the dorsal left forefoot are noted. These are the level of the distal shaft of the left fifth metatarsal. IMPRESSION: 1. No acute fracture. No evidence for acute osteomyelitis within the left foot. 2. A few locules of soft tissue gas the dorsal left forefoot, as described above. These could be related to an abscess or wound. A gas-forming organism cannot be excluded. ACT 112: Negative or not required by law. Electronically signed by: Manjit Cali M.D. 08/20/2021 7:[address] 08/20/21 20:[address] DOSE: 183.03 mGy.cm HISTORY: L forefoot abscess, eval for osseous involvement. TECHNIQUE: Multiaxial CT images of the left foot were performed and reformatted in the sagittal and coronal plane without the use of contrast. A dose lowering technique was utilized adhering to the principles of ALARA. COMPARISON: Left foot radiograph 08/20/2021. FINDINGS: Focal skin thickening with subcutaneous edema within the left lateral forefoot with 2 small locules of subcutaneous gas best seen image 47 of 69. Small focal fluid collection surrounding these locules of gas within the subcutaneous soft tissues which measures approximately 2.2 x 1.4 cm. This favors a small subcutaneous abscess. Additional areas of subcutaneous edema within the left lateral forefoot may represent phlegmon/developing abscesses. These measure up to 3 cm. No underlying bony destruction to suggest osteomyelitis. Degenerative changes seen within the midfoot. Small plantar and posterior calcaneal spurs are noted. IMPRESSION: Focal skin thickening with subcutaneous edema within the left lateral forefoot with 2 small locules of subcutaneous gas. Small focal fluid collection surrounding these locules of gas within the subcutaneous soft tissues which measures approximately 2.2 x 1.4 cm. This favors a small subcutaneous abscess. Additional areas of subcutaneous edema within the left lateral forefoot may represent phlegmon/developing abscesses. These measure up to 3 cm. ACT 112: Negative or not required by law. Electronically signed by: Omar Duque M.D. 08/21/2021 7:30 AM
--- NOTE | 2021-08-22 12:58 | Hospitalist Progress Note ---
Date of Service August 22, 2021 Assessment & Plan (1) Left foot infection: Plan: Long-standing ulcers of left foot. Has seen Wound Care for years. - Follow culture and sensitivity of drainage from 08/20. - No growth so far. - Follow blood cultures -> No growth on 08/22. - Continue daptomycin IV and Zosyn IV begun in the ED - Consulted wound care - Consulted ortho on 08/[address] scan actually shows multiple abscesses. Plan for I&D either today or Friday with Dr. Ghosh. Presently NPO. (2) Pancreatitis: Plan: CT a/p on 08/20 noted sonal-pancreatic stranding with a suspected pseudocyst. Patient without any major symptoms of abdominal pain, nausea, or vomiting. - NPO presently for possible surgery -> Restart diet cautiously - LR @ 125 mL/hr (more cautious due to CKD) - Monitor lipase & symptoms (3) Acute kidney injury superimposed on chronic kidney disease: Plan: Creatinine 4.25 upon admission, with recent creatinines from 08/14: 2.74-3.35-3.54. - Hold HCTZ - Continue IV fluid rehydration - Consulted nephrology - Appreciate recs. Cr improving; down to 2.4 on 08/22. (4) Hypotensive episode: Plan: Blood pressure initially 88/64, responded to IV fluids to 106/69. Presently 116/75. - Continue rehydration per nephrology - Hold HCTZ (5) HTN (hypertension): Plan: As above (6) Chronic kidney disease with symptom management only, stage 4 (severe): Plan: See above. - Will reduce allopurinol to 50 mg PO daily for CrCl (7) Chronic venous insufficiency: Plan: Per vascular note from 12/06/2020, hx of: Left GSV radiofrequency ablation, left remnant GSV Venaseal, right GSV Venaseal, and left pathologic senior administrative associate radiofrequency ablation. - F/u with vascular - No inpatient needs (8) DVT prophylaxis: Plan: Hx of DVT in 07/2018. - Continue apixaban (may hold for I&D if ortho requests it) Admission and Anticipated Discharge Date Admission Date: August 20, 2021 Subjective Doing well. No pain in the foot. Reports no fevers/chills, chest pain, shortness of breath, abdominal pain, nausea, or vomiting. Physical Exam Constitutional: WD/WN, vitals as above Eyes: EOM intact bilaterally; no conjunctival abnormality ENMT: external ear and nose normal, oropharynx normal Neck: trachea midline, no thyromegaly normal visual inspection Respiratory: normal respiratory effort, lungs clear to auscultation no respiratory distress Cardiovascular: RRR, no murmur, no edema Gastrointestinal (Abdomen): Inspection/Auscultation: abdomen normal to inspection; abdomen not distended Musculoskeletal: no cyanosis or clubbing, extremities motor strength 5/5 Skin: no rashes, warm and dry + ulcer (On left foot.) Neurologic: moves all extremities and awake Psychiatric: Orientation: alert, oriented to person and cooperative Results & Data Results & Data ([facility]) Vital Signs (Past 12 Hours) Vital Signs Temp Pulse Pulse Resp BP Pulse Ox 08/22/21 11:13 36.5 C 86 16 111/76 100 08/22/21 10:19 146 H 08/22/21 10:01 36.5 C 08/22/21 07:26 36.4 C L 80 14 109/76 97 08/22/21 07:00 82 08/22/21 04:00 36.8 C 85 18 95/57 L 96 PG Care Time/CCT Total # of Minutes Spent Total Time Spent with Patient: Total time spent is greater than 50% in coordination of care (as documented) at patient's floor/unit and/or counseling patient: Coding Level of Care Code 40799 Subseq Hosp Care Lvl 3 Diagnoses Left foot infection L08.9 Acute kidney injury superimposed on chronic kidney disease N17.9; N18.9 Hypotensive episode I95.9 HTN (hypertension) I10 Chronic kidney disease with symptom management only, stage 4 (severe) N18.4 Chronic venous insufficiency I87.2 DVT prophylaxis Z29.9 Pancreatitis K85.90
[2021-08-22] MEDS ORDERED: PROPOFOL IV EMULSION 10 MG/ML 20 ML VIAL IV ONE (15:22)
[2021-08-22] MEDS ORDERED: ONDANSETRON INJ 2 MG/ML 2 ML VIAL ONE (15:22)
[2021-08-22] MEDS ORDERED: LIDOCAINE 2% 2 ML VIAL/AMP(20MG/ML) INFIL ONE (15:22)
[2021-08-22] MEDS ORDERED: ePHEDrine sulfate 50 MG/ML SYR ONE (15:22)
[2021-08-22] MEDS ORDERED: MIDAZOLAM HCL 1 MG/ML 2ML VIAL ONE (15:22)
[2021-08-22] MEDS ORDERED: PHENYLEPHRINE 100MCG/ML 5ML SYR ONE (15:22)
[2021-08-22] MEDS ORDERED: fentaNYL citrate 100 MCG/2 ML VIAL ONE ×2 (15:22→17:55)
--- NOTE | 2021-08-22 16:56 | History & Physical Bridge Note ---
Date of Service August 22, 2021 History & Physical Bridge Note I have examined the patient, reviewed the History & Physical and in the interval since the performance of the History & Physical I have noted the following changes of clinical significance: no changes noted
[2021-08-22] MEDS ORDERED: ePHEDrine sulfate 50 MG/ML AMP IV PRN (17:20)
[2021-08-22] MEDS ORDERED: ONDANSETRON INJ 2 MG/ML 2 ML VIAL IV PRN (17:20)
[2021-08-22] MEDS ORDERED: ATROPINE SULFATE 0.1 MG/ML 10ML SYR IV PRN (17:20)
[2021-08-22] MEDS ORDERED: HYDROmorphone INJ 2 MG/ML SYR/VIAL IV PRN (17:20)
--- NOTE | 2021-08-22 17:20 | Anesthesiology Consultation ---
Date of Service August 22, 2021 Assessment & Plan ASA ASA3 Proposed Anesthesia Anesthesia Type: General Risk / Benefits Reviewed With: PT / POA / Parent / Guardian, Accepts Plan and Informed Consent Obtained History Surgery Operation Date: 08/22/21 12:05 Proposed Procedures p Left Foot Incision and Drainage - Jose A Ghosh, Height/Weight Height: 6 ft 4 in Weight: 95 kg Allergies Allergy/AdvReac Type Severity Reaction Status Date / Time doxycycline Allergy Severe Joint Verified 08/20/21 19:18 Pain, Shortness of breath cephalexin Allergy Mild throat Verified 08/20/21 19:18 swells Cipro Allergy Mild throat Verified 06/09/18 08:28 swells ciprofloxacin Allergy Mild throat Verified 08/20/21 19:18 swells Medications Home Medications Medication Instructions Recorded Confirmed Last Taken apixaban 5 mg tablet 5 mg PO BID #180 tab 11/07/20 08/20/21 08/20/21 hydrochlorothiazide 25 mg tablet 25 mg PO QAM #90 tab 05/31/21 08/20/21 08/20/21 allopurinol 100 mg tablet 100 mg PO DAILY #90 tab 06/18/21 08/20/21 08/20/21 Active Medications Generic Name Dose Route Start Last Admin Trade Name Freq PRN Reason Stop Dose Admin Apixaban 5 mg 08/21/21 00:00 08/22/21 08:06 Apixaban 5 Mg Tablet PO 09/20/21 00:00 5 mg BID CURTIS Administration Daptomycin 350 mg/ Syringe 7 mls @ 3.5 mls/min 08/21/21 18:00 08/21/21 18:02 IV 08/28/21 17:59 3.5 mls/min Q24H CURTIS Administration Protocol Piperacillin Sod/Tazobactam 115 mls @ 28.75 mls/hr 08/21/21 02:00 08/22/21 14:15 Sod 3.375 gm/ Dextrose IV 08/28/21 01:59 Infused Q8H CURTIS Infusion Protocol Lactated Ringer's 1,000 mls @ 125 mls/hr 08/21/21 17:15 08/22/21 16:59 Lr IV 09/20/21 17:14 Infused .Q8H CURTIS Infusion NPO Date Last Intake of Fluids: 08/22/21 Time Last Intake of Fluids: 08:00 Date Last Intake of Solids: 08/22/21 Time Last Intake of Solids: 08:00 Past Medical History Medical History Acute kidney injury Anemia Arthritis Chronic kidney disease with symptom management only, stage 4 (severe) Chronic venous insufficiency Deep vein thrombosis 07/2018/CHRONIC- ON ELIQUIS HTN (hypertension) MVP (mitral valve prolapse) 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 ECHO Secondary hyperparathyroidism of renal origin Staphylococcus aureus infection Superficial thrombosis of leg PER RECORDS UTI (urinary tract infection) Venous ulcer RECURRENT VENOUS ULCERATION (REASON FOR PROCEDURE) Vitamin D deficiency Vitamin D deficiency Exercise / Class Metabolic Activity II 4-5 Yardwork/Stairs/Walk up hill Past Family History Family History Mother FHx: lung cancer Hypertension Breast cancer Brother FHx: testicular cancer Hypertension Father Hypertension Unknown Myocardial infarction Past Surgical History Surgical History Hx of biopsy LEFT KIDNEY S/P vascular surgery LLE 2/2 VENOUS INSUFFICIENCY Past Anesthesia History No Hx of Anesthesia Complications and No Family Hx of Anesthesia Complications History of PONV No Hx of PONV and No Hx of Motion Sickness Social History Smoking Status: Never smoker Do You Dip or Chew Tobacco: No Hx Alcohol Use: Yes Alcohol type: beer, wine and hard liquor alcohol intake frequency: a few times a month Hx Substance Use: No substance use type: does not use Review of Systems denies fever/cough/ colds/ chest pain/ SOB/ LEIDA denies LEIDA Physical Exam Vital Signs Last Vital Signs Temp 36.3 C L 08/22/21 15:07 Pulse 92 H 08/22/21 15:12 Resp 16 08/22/21 15:07 BP 119/77 08/22/21 15:07 Pulse Ox 97 08/22/21 15:07 ENMT Mouth: no TMJ abnormality and no dentition abnormality Thyromental Distance: > or= 3.5 Finger Breadths Mallampati Class: II Neck neck extension not limited Respiratory normal respiratory effort; no respiratory distress Auscultation: lungs clear to auscultation bilaterally Cardiovascular Rate/Rhythm: regular rate and regular rhythm Neurologic moves all extremities Psychiatric Orientation: alert and oriented x 3 Testing Laboratory Results 08/20/21 18:02 08/22/21 06:35 PT 10.9 Seconds (9.0-12.0) 08/20/21 18:54 INR 1.1 (0.9-1.1) 08/20/21 18:54 Urine Color Yellow 08/21/21 01:42 Urine Appearance Clear (Clear) 08/21/21 01:42 Urine pH 5.0 (4.5-7.5) 08/21/21 01:42 Ur Specific [place] 1.012 (1.000-1.030) 08/21/21 01:42 Urine Protein 1+ (Negative) H 08/21/21 01:42 Urine Glucose (UA) Negative (Negative) 08/21/21 01:42 Urine Ketones Negative (Negative) 08/21/21 01:42 Urine Nitrite Negative (Negative) 08/21/21 01:42 Ur Leukocyte Esterase Negative (Negative) 08/21/21 01:42 Urine WBC (Auto) 0 /hpf (0-5) 08/21/21 01:42 Urine RBC (Auto) 0-4 /hpf (0-4) 08/21/21 01:42 U Hyaline Cast (Auto) 0 /lpf (0-5) 08/21/21 01:42 U Epithel Cells (Auto) 0-5 /lpf (0-5) 08/21/21 01:42 Urine Bacteria (Auto) Negative (Negative) 08/21/21 01:42 08/20/21 18:50 Gram Stain - Final Foot Wound Culture - Preliminary Moderate counts mixed probable skin microbiota. 08/20/21 19:33 Aerobic Blood Culture - Preliminary Blood No growth in Aerobic bottle after 24 hours. Anaerobic Blood Culture - Preliminary No growth in Anaerobic bottle after 24 hours. 08/20/21 18:54 Aerobic Blood Culture - Preliminary Blood No growth in Aerobic bottle after 24 hours. Anaerobic Blood Culture - Preliminary No growth in Anaerobic bottle after 24 hours.
[2021-08-22] MEDS ORDERED: CLINDAMYCIN 600 MG/54 ML D5W IV ONE (17:28)
[2021-08-22] MEDS: CLINDAMYCIN PHOS 300 MG/2 ML VIAL ONE ×2 (17:41→18:26)
--- NOTE | 2021-08-22 17:50 | Cardiology Consultation ---
Date of Consultation August 22, 2021 Assessment & Plan (1) MVP (mitral valve prolapse): (2) Chest pain, exertional: (3) Mitral regurgitation: (4) Preop cardiovascular exam: ASSESSMENT/PLAN: 1. Exertional chest pain: Chest pain does not occur daily and appears to occur more so with exertion and stress. It also appears to be rather stable over the past 1 year. Would recommend elective noninvasive ischemic evaluation such as dobutamine stress echo or myocardial perfusion study. Discussed with Dr. Torres of the primary hospitalist service. Because his surgical procedure is low risk and deemed rather necessary due to abscess formation, his surgical procedure does not need to be delayed for stress testing at this time. If his surgery is performed today, stress testing can be done as an outpatient. 2. Mitral valve prolapse with regurgitation: Reportedly moderate mitral reg urgitation in 2016. Recommend repeating echo electively. This can be done as an outpatient. 3. Preoperative cardiac assessment: He is scheduled for a low risk but more necessary procedure given abscess formation of his left foot. Would recommend further evaluation as above but given the need for this surgery to be done soon, can undergo low risk debridement at this time. Please call with any questions or concerns or if he should develop postoperative chest discomfort. If he remains asymptomatic during this hospital stay from cardiac perspective, his elective evaluation can be performed as an outpatient. 4. Disposition: Patient care communicated with Dr. Torres of the hospitalist service, via telephone. Please call with any other questions or concerns. Thank you for allowing me to participate in the care of your patient. Please call for any other questions or concerns. Sincerely, Livna Elizalde M.D. History of Present Illness Reason for Consultation: Preoperative cardiac assessment Requesting Physician: Tom Torres MD Attending Physician: Tom Torres MD History of Present Illness Mr. Sharif is a pleasant 41-year-old gentleman with a history significant for CKD, hypertension, mitral valve prolapse with mitral regurgitation, bilateral lower extremity DVT on chronic anticoagulation therapy, venous insufficiency, and venous ulcer [facility]. He has been followed by Dr. Goss in regards to his lower extremity venous issues and has undergone bilateral venous ablation. Orthopedics has evaluated him and have recommended irrigation and debridement of his left foot abscess. For the past month or so, he has been having intermittent blurry vision and orthostatic symptoms. His visual changes and lightheadedness occurred while standing or changing positions. He apparently has been having some intermittent vomiting and also poor p.o. intake. He was seen in Nephrology office on 08/20/2021 and was found to be hypotensive with continued symptoms. His renal function had worsened from his baseline creatinine in the 2.2-2.7 range up to 4.25 on the day of presentation to the hospital. He had been taking HCTZ and li sinopril, and he was instructed to hold them and referred to the emergency department. Here he has received IV fluids and his renal function has improved. His orthostatic symptoms have completely resolved. He has not had any nausea or vomiting while hospitalized. He denies chest pain or shortness of breath currently while seated in bed (At approximately 2:00 p.m.). He states that he is quite active at work. 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 He initially denied chest discomfort or shortness of breath with his daily activities, including grocery shopping. At the end of our conversation he then admitted that he does have occasional left-sided chest pressure but only with exertion and stressed while at work. Symptoms resolved with rest. Symptoms do not occur on a daily basis but a rather intermittent. There is no radiation of the pain. His last episode was within the past couple of weeks. His symptoms have been intermittently occurring for the past 1 year. He confirmed that he could walks to the grocery store without symptoms but does have shortness of breath while climbing stairs, but his exertional dyspnea is chronic and appears stable. He denies palpitations, syncope, edema, or bleeding. He continues to follow in [facility]. In regards to mitral valve prolapse, he states that he was diagnosed as a teenager and his last echo was in 2016 approximately. Review of systems: As above. Review of systems otherwise negative/unremarkable. Family history: Father had CABG in his 70s. Social history: Denies smoking. Occasional alcohol. He describes 6-8 oz of vodka, 3-4 days per week. No drugs. He lives at home with his fiancee. He has not been . Four adult children. 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 He was unaccompanied in his hospital room. Allergies Allergy/AdvReac Type Severity Reaction Status Date / Time doxycycline Allergy Severe Joint Verified 08/20/21 19:18 Pain, Shortness of breath cephalexin Allergy Mild throat Verified 08/20/21 19:18 swells Cipro Allergy Mild throat Verified 06/09/18 08:28 swells ciprofloxacin Allergy Mild throat Verified 08/20/21 19:18 swells Home Medications Medication Instructions Recorded Confirmed Type apixaban 5 mg tablet 5 mg PO BID #180 tab 11/07/20 08/20/21 Rx hydrochlorothiazide 25 mg tablet 25 mg PO QAM #90 tab 05/31/21 08/20/21 Rx allopurinol 100 mg tablet 100 mg PO DAILY #90 tab 06/18/21 08/20/21 Rx Patient History Medical History (Updated 08/22/21 @ 17:43 by Viraj Elizalde MD) Acute kidney injury Anemia Arthritis Chronic kidney disease with symptom management only, stage 4 (severe) Chronic venous insufficiency Deep vein thrombosis 07/2018/CHRONIC- ON ELIQUIS HTN (hypertension) MVP (mitral valve prolapse) 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 ECHO Secondary hyperparathyroidism of renal origin Staphylococcus aureus infection Superficial thrombosis of leg PER RECORDS UTI (urinary tract infection) Venous ulcer RECURRENT VENOUS ULCERATION (REASON FOR PROCEDURE) Vitamin D deficiency Surgical History Hx of biopsy LEFT KIDNEY S/P vascular surgery LLE 2/2 VENOUS INSUFFICIENCY Family History Mother FHx: lung cancer Hypertension Breast cancer Brother FHx: testicular cancer Hypertension Father Hypertension Unknown Myocardial infarction Social History Smoking Status: Never smoker Second Hand Exposure: No; Hx Alcohol Use: Yes Alcohol type: beer, wine and hard liquor Alcohol Intake Frequency Comment: daily Hx Substance Use: No Preferred Language: Comoran Communication Ability: Effective Visual Impairment: No Limitations Cable 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 Alert and oriented. HEENT: Anicteric sclera. Neck: No JVD. No bruits. Normal carotid upstrokes bilaterally. Cardiac: PMI was nondisplaced. No ventricular heave. Regular rate and rhythm. Normal S1-S2. 2/6 systolic murmur at the apex. No rubs or gallops. Pulmonary: Clear to auscultation bilaterally without wheezes, rales, or rhonchi. Abdomen: Soft, nontender, nondistended, with normoactive bowel sounds. No bruits noted. Extremities: 2+ radial pulses bilaterally. 2+ posterior tibialis pulses bilaterally. No edema or cyanosis. Psychiatric: Affect appears appropriate. Chest: Nontender to palpation. Results & Data ([facility]) Vital Signs (Past 12 Hours) Vital Signs Temp Pulse Pulse Resp BP Pulse Ox 08/22/21 11:13 36.5 C 86 16 111/76 100 08/22/21 10:19 146 H 08/22/21 10:01 36.5 C 08/22/21 07:26 36.4 C L 80 14 109/76 97 08/22/21 07:00 82 08/22/21 04:00 36.8 C 85 18 95/57 L 96 Laboratory Results Laboratory Results - last 24 hr 08/22/21 06:35 Creatinine 2.40 H D Est Cr Clr Drug Dosing 48.7 Est GFR ( Amer) 36.9 Est GFR (Non-Af Amer) 31.8 Lipase 9782 H Diagnostic Findings Telemetry personally reviewed: Sinus rhythm. There are episodes of tachycardia which appeared to be sinus tachycardia. Reviewing the rhythm prior to and following these episodes, the heart rate gradually increases and maintains sinus and then once again gradually decreases after these heart rate spikes. No noted arrhythmia. ECG personally reviewed 08/20/2021 at 6:04 p.m.: Sinus rhythm first-degree AV block. Medications Administered Current Inpatient Medications Acetaminophen (Acetaminophen 325 Mg Tab) 650 mg PO Q4H PRN PRN Reason: Pain or Fever Stop: 09/19/21 23:07 Allopurinol (Allopurinol 100 Mg Tab) 50 mg PO DAILY CURTIS Stop: 09/22/21 08:59 Apixaban (Apixaban 5 Mg Tablet) 5 mg PO BID CURTIS Stop: 09/20/21 00:00 Last Admin: 08/22/21 08:06 Dose: 5 mg Documented by: Atropine Sulfate (Atropine Sulfate 0.1 Mg/Ml 10ml Syr) 0.5 mg IV Q1M PRN PRN Reason: PACU Use-HR<40 &/or Bradycardi Stop: 08/23/21 01:20 Ephedrine Sulfate (Ephedrine Sulfate 50 Mg/Ml Amp) 5 mg IV Q5M PRN PRN Reason: PACU Use Only-SBP<90 mmHg Stop: 08/23/21 01:20 Fentanyl Citrate (Fentanyl Citrate 100 Mcg/2 Ml Vial) 50 mcg IV Q5M PRN PRN Reason: PACU Use Only-Pain Stop: 08/23/21 01:20 Hydromorphone HCl (Hydromorphone Inj 2 Mg/Ml Syr/Vial) 0.5 mg IV Q5M PRN PRN Reason: PACU Use Only-Pain Stop: 08/23/21 01:20 Daptomycin 350 mg/ Syringe 7 mls @ 3.5 mls/min IV Q24H CURTIS; Protocol Stop: 08/28/21 17:59 Last Admin: 08/21/21 18:02 Dose: 3.5 mls/min Documented by: Piperacillin Sod/Tazobactam (Sod 3.375 gm/ Dextrose) 115 mls @ 28.75 mls/hr IV Q8H CURTIS; Protocol Stop: 08/28/21 01:59 Last Infusion: 08/22/21 14:15 Dose: Infused Documented by: Lactated Ringer's (Lr) 1,000 mls @ 125 mls/hr IV .Q8H CURTIS Stop: 09/20/21 17:14 Last Infusion: 08/22/21 16:59 Dose: Infused Documented by: Miscellaneous Information (Daptomycin Consult Active) 1 ea N/A UD PRN PRN Reason: Consult Stop: 09/19/21 23:07 Miscellaneous Information (Piperacill/Tazobac Consult Active) 1 ea N/A UD PRN PRN Reason: Consult Stop: 09/19/21 23:07 Ondansetron HCl (Ondansetron Inj 2 Mg/Ml 2 Ml Vial) 4 mg IV Q6H PRN PRN Reason: Nausea Stop: 09/19/21 23:07 Ondansetron HCl (Ondansetron Inj 2 Mg/Ml 2 Ml Vial) 4 mg IV ONCE PRN PRN Reason: PACU Use Only-Nausea/Vomiting Stop: 08/23/21 01:20 PG Care Time/CCT Total # of Minutes Spent Total Time Spent with Patient: Total time spent is greater than 50% in coordination of care (as documented) at patient's floor/unit and/or counseling patient: Coding Level of Care Code 26381 Initial Inpt Care Lvl 3 Diagnoses MVP (mitral valve prolapse) I34.1 Chest pain, exertional R07.9 Mitral regurgitation I34.0 Preop cardiovascular exam Z01.810
[2021-08-22] MEDS ORDERED: BUPIVACAINE 0.5 % 5 MG/1 ML MPF 30ML VIAL ONE (18:07)
--- NOTE | 2021-08-22 18:48 | Post Operative Brief Note ---
Immediate Post Op Note v1 Date of Surgery August 22, 2021 Pre & Post Diagnosis Operation Date: 08/22/21 12:05 Pre-Op Diagnosis: Left foot deep abscess left forefoot, septic tenosynovitis extensors left foot, dorsal foot ulcers x3. Post-Op Diagnosis: Left foot deep abscess left forefoot at 2 separate locations, septic tenosynovitis third and fourth extensor tendons left foot, dorsal foot ulcers x3. I identified the patient and participated in the time-out.: Yes Procedure Operation Date: 08/22/21 12:05 Actual Procedures p Incision and Drainage deep forefoot abscesses dorsal foot x 2 separate sites with 2 separate incisions (Left) - DO marsha Jeffers Tenosynovectomy septic extensor tendon third toe left foot(Left) - DO marsha Jeffers Tenosynovectomy septic extensor tendon fourth toe left foot (Left) - Jose A Ghosh DO Surgeon Jose A Ghosh DO Public Relations Senior Associate None Estimated Blood Loss 3 Findings Consistent with Post-Op Diagnosis Specimens Aerobic, anaerobic, Gram stain specimen deep forefoot abscess left Drains Other (1/2 inch iodoform gauze packing x2) Complications none Disposition Accompanied Patient To Recovery: No
[2021-08-22] MEDS: fentaNYL citrate 100 MCG/2 ML VIAL IV PRN ×2 (18:51→18:56)
--- NOTE | 2021-08-22 19:12 | Anesthesiology Progress Note ---
Date of Service August 22, 2021 Anesthesia Post Procedure Vital Signs Vital Signs: Temp Pulse Pulse Pulse Pulse Resp BP 08/22/21 19:05 82 14 08/22/21 18:55 82 15 08/22/21 18:45 36.7 C 109 H 18 08/22/21 18:40 36.4 C L 72 20 104/74 08/22/21 17:31 36.9 C 85 20 117/83 08/22/21 15:12 92 H 08/22/21 15:07 36.3 C L 82 16 119/77 08/22/21 11:13 36.5 C 86 16 111/76 08/22/21 10:19 146 H 08/22/21 10:01 36.5 C 08/22/21 07:26 36.4 C L 80 14 109/76 08/22/21 07:00 82 08/22/21 04:00 36.8 C 85 18 95/57 L 08/21/21 23:29 36.9 C 89 18 111/76 08/21/21 22:19 93 H BP Pulse Ox 08/22/21 19:05 123/81 95 08/22/21 18:55 119/82 100 08/22/21 18:45 118/82 99 08/22/21 18:40 100 08/22/21 17:31 100 08/22/21 15:12 08/22/21 15:07 97 08/22/21 11:13 100 08/22/21 10:19 08/22/21 10:01 08/22/21 07:26 97 08/22/21 07:00 08/22/21 04:00 96 08/21/21 23:29 100 08/21/21 22:19 Pain Intensity Left Foot: Pain Intensity: 4 Transfer of Care Handoff Completed per policy Notes Mental Status: alert / awake / arousable and participated in evaluation Patient Amnestic to Procedure: Yes Nausea / Vomiting: adequately controlled Pain: adequately controlled Airway Patency, RR, SpO2: stable & adequate BP & HR: stable & adequate Hydration State: stable & adequate Anesthetic Complications: no major complications apparent and Pt Satisfied with anesthetic care
[2021-08-22] MEDS ORDERED: HYDROmorphone INJ 0.5 MG/0.5 ML SYR IV PRN (19:29)
[2021-08-22] MEDS ORDERED: NALOXONE HCL 0.4 MG/1 ML VIAL/CARP IV PRN (19:29)
[2021-08-22] MEDS ORDERED: MAGNESIUM HYDROXIDE SUSP 30 ML UDC PO PRN (19:29)
[2021-08-22] MEDS ORDERED: bisacodyL 10 MG SUPP PR PRN (19:29)
[2021-08-22] MEDS: SODIUM CHLORIDE 0.9% 1000ML 1,000 ML IV SCH (20:24)
[2021-08-22] MEDS: DAPTOmycin 350 MG in SYRINGE 0 ML IV SCH (20:24)
--- NOTE | 2021-08-22 23:01 | Operative Report (OR) ---
DATE OF PROCEDURE: 08/22/2021 PREOPERATIVE DIAGNOSES: 1. Left foot deep abscesses x2 separate sites. 2. Dorsal foot ulcers x3. POSTOPERATIVE DIAGNOSES: 1. Left foot deep abscesses x2 separate sites. 2. Septic tenosynovitis of the third extensor tendon. 3. Septic tenosynovitis of the fourth extensor tendon. 4. Dorsal foot ulcers x3. PROCEDURES PERFORMED: 1. Incision and drainage of dorsal left foot at 2 separate sites, 2 separate incisions. 2. Extensor tenosynovectomy of the third extensor tendon. 3. Extensor tenosynovectomy of the fourth extensor tendon. SURGEON: Jose A Ghosh DO. BIOLOGICAL INSPECTOR: None. ANESTHESIA: General LMA with regional. SPECIMENS: Aerobic, anaerobic, Gram stain from deep forefoot abscess, left foot. DRAINS: 1/2 inch iodoform gauze packing x2. COMPLICATIONS: None. BLOOD LOSS: 3 mL. PERTINENT HISTORY: This is a 41-year-old gentleman developed an insidious onset of left foot pain, s welling, redness, and then bulging of the soft tissues of the distal foot. Attempted and failed cons ervative management and then admitted to the hospitalist service. IV antibiotics were attempted. Had a CT scan, which demonstrated abscess with free air in the dorsal deep left forefoot region. The pa tient was then scheduled for surgery as indicated. All potential risks, benefits, complications, alternatives, rehab potential for incomplete relief of symptoms, DVT, PE, , persistent pain, swelling, scarring, weakness, neurovascular injury, need f or further surgery and/or amputation was discussed with the patient. The patient decided to proceed with the procedure as indicated. DESCRIPTION OF PROCEDURE: The patient was taken to the operative suite and placed supine on the oper ating room table. After review of consent and identification of proper site, the patient was anesthe tized, LMA was placed. Left lower extremity was then sterilely prepped and draped in the usual fashi on, elevated and partially exsanguinated with an Esmarch bandage from the heel extending proximally a nd an Esmarch tourniquet was applied over sterile surgical towel at the level of the ankle. Next, a forefoot regional block was then performed with 0.5% Marcaine plain, approximately 20 mL. A 15 blade scalpel was used to make 2 separate forefoot incisions, one medial to the third extensor t endon at the site of abscess and ulceration. The second dorsal incision was made between the fourth and fifth metatarsal heads extending proximally and distally with a 15 blade scalpel. Significant pu rulent discharge was then noted at both sites, none communicating, and aerobic, anaerobic, Gram stain was obtained from the deep forefoot abscess site. Next, the abscesses were separately extruded and incised and drained. Rongeur and curette were then used to clear the abscess material. There was no william to be suppurative tenosynovitis of the third extensor tendon and then separately, there was also noted to be suppurative tenosynovitis of the fourth extensor tendon. This time, tenosynovectomy was performed of the third extensor tendon with a rongeur. Tenosynovectom y was then performed of the fourth extensor tendon with a rongeur down to healthy appearing tissue. Next pulsatile lavage, 3 liters with clindamycin 300 mg total additive was then used to lavage the fo ot until clear. No residual infection was noted. Next, a 1/2 inch iodoform gauze packing was then p laced in the medial incision, 1/2 inch iodoform gauze packing was then placed in the lateral incision and then a singular stab incision was made proximal and then the gauze packing was then run subcutan eous to the stab incision for later retrieval. Next, top gloves and top sheet were changed and the incisions were then gently approximated with inte rrupted 3-0 nylon and 4-0 nylon. Finally, a sterile compressive forefoot dressing was applied consis ting of Xeroform gauze, Adaptic, 4 x 4s, ABD pads, cast padding, and an Logan wrap was applied. The to urniquet was released. The patient was awakened and taken to recovery in stable condition. Job ID: [id number]
[2021-08-23] MEDS: ACETAMINOPHEN 325 MG TAB PO PRN ×2 (00:38→20:10)
[2021-08-23] MEDS: PIPERACILLIN/TAZOBACTAM 3.375 GM in DEXTROSE 5% 100 ML IV SCH ×3 (01:57→18:33)
[2021-08-23] MEDS: SODIUM CHLORIDE 0.9% 1000ML 1,000 ML IV SCH (06:01)
[2021-08-23] MEDS: oxyCODONE HCL IR 5 MG TAB (IMMEDIATE RELEASE) PO PRN ×2 (06:32→14:23)
[2021-08-23 08:21] LABS: Hematocrit (blood only) 35.3 % (42-52); Hemoglobin 11.6 g/dL (14.0-18.0); Mean Corpuscular Hemoglobin 35.7 pg (25-34); Mean Corpuscular Hgb Conc 32.9 g/dL (32-36); Mean Corpuscular Volume 108.6 fL (80-100); Mean Platelet Volume 8.7 fL (7.4-10.4); Platelet Count 342 K/uL (130-400); RDW Coefficient of Variation 12.7 % (11.5-14.5); RDW Standard Deviation 50.5 fL (36.4-46.3); Red Blood Count 3.25 M/uL (4.7-6.1)
[2021-08-23] MEDS: MULTIVITAMIN TAB PO SCH (08:30)
[2021-08-23] MEDS: allopurinoL 100 MG TAB PO SCH (08:30)
[2021-08-23 08:59] LABS: Albumin Globulin Ratio 0.5 (0.9-2); Albumin Level 2.5 gm/dl (3.4-5.0); BUN Creatinine Ratio 13.1 (10-20); Bilirubin,Total 0.6 mg/dl (0.2-1); Calcium 8.8 mg/dl (8.5-10.1); Creatinine Clr Calc Pharmacy 58.5 ml/min; Est GFR (Non-African American) 39.7 ml/min; Globulin 4.9 gm/dl (2.5-4.0); Magnesium 1.4 mg/dl (1.8-2.4); Potassium 4.1 mmol/L (3.5-5.1); Total Protein 7.4 gm/dl (6.4-8.2)
--- NOTE | 2021-08-23 09:58 | Orthopedic Progress Note ---
Date of Service August 23, 2021 Assessment & Plan (1) Abscess of left foot: Plan: POD 1 s/p I&D left foot PT/OT; WBAT on heel only DVT proph - Resume Eliquis starting with today's PM dose. Pain management as written. Dressing change with start of packing removal tomorrow. Admission and Anticipated Discharge Date Admission Date: August 20, 2021 Subjective POD 1 Pt sleeping upon entering room. Easily awoken. No complaints presently. States he was able to sleep through the night. Woke up around 6am and was having pain. Medication taken which is working well. Physical Exam Physical Exam: Dressings C/D/I. Toes mobile. Sensation intact. Results & Data ([facility]) Vital Signs (Past 12 Hours) Vital Signs Temp Pulse Pulse Pulse Resp BP Pulse Ox 08/23/21 07:23 37.3 C 93 H 18 109/70 97 08/23/21 07:19 92 H 08/23/21 04:36 37.2 C 97 H 16 109/65 95 08/23/21 00:42 84 08/22/21 23:23 37.8 C H 89 18 100/60 99 Laboratory Results Laboratory Results WBC 7.90 K/uL (4.8-10.8) 08/23/21 07:48 RBC 3.25 M/uL (4.7-6.1) L 08/23/21 07:48 Hgb 11.6 g/dL (14.0-18.0) L 08/23/21 07:48 Hct 35.3 % (42-52) L 08/23/21 07:48 MCV 108.6 fL (80-100) H 08/23/21 07:48 MCH 35.7 pg (25-34) H 08/23/21 07:48 MCHC 32.9 g/dL (32-36) 08/23/21 07:48 RDW Std Deviation 50.5 fL (36.4-46.3) H 08/23/21 07:48 RDW Coeff of Machelle 12.7 % (11.5-14.5) 08/23/21 07:48 Plt Count 342 K/uL (130-400) 08/23/21 07:48 MPV 8.7 fL (7.4-10.4) 08/23/21 07:48 Immature Gran % (Auto) 0.3 % 08/20/21 18:02 Neut % (Auto) 63.3 % 08/20/21 18:02 Lymph % (Auto) 18.3 % 08/20/21 18:02 [place] % (Auto) 8.0 % 08/20/21 18:02 Eos % (Auto) 9.3 % 08/20/21 18:02 Baso % (Auto) 0.8 % 08/20/21 18:02 Neut # (Auto) 5.78 K/uL (1.4-6.5) 08/20/21 18:02 Lymph # (Auto) 1.67 K/uL (1.2-3.4) 08/20/21 18:02 [place] # (Auto) 0.73 K/uL (0.11-0.59) H 08/20/21 18:02 Eos # (Auto) 0.85 K/uL (0-0.5) H 08/20/21 18:02 Baso # (Auto) 0.07 K/uL (0-0.2) 08/20/21 18:02 Immature Gran # (Auto) 0.03 K/uL (0.00-0.02) H 08/20/21 18:02 ESR 84 mm/hr (0-15) H 08/20/21 18:02 PT 10.9 Seconds (9.0-12.0) 08/20/21 18:54 INR 1.1 (0.9-1.1) 08/20/21 18:54 Sodium 138 mmol/L (136-145) 08/23/21 07:48 Potassium 4.1 mmol/L (3.5-5.1) 08/23/21 07:48 Chloride 110 mmol/L (98-107) H 08/23/21 07:48 Carbon Dioxide 19 mmol/L (21-32) L 08/23/21 07:48 Anion Gap 9.0 (3-11) 08/23/21 07:48 BUN 26 mg/dl (7-18) H 08/23/21 07:48 Creatinine 2.00 mg/dl (0.6-1.4) H D 08/23/21 07:48 Est Cr Clr Drug Dosing 58.5 ml/min 08/23/21 07:48 Est GFR ( Amer) 46.0 ml/min 08/23/21 07:48 Est GFR (Non-Af Amer) 39.7 ml/min 08/23/21 07:48 BUN/Creatinine Ratio 13.1 (10-20) 08/23/21 07:48 Glucose 90 mg/dl (70-99) 08/23/21 07:48 Lactate 1.0 mmol/L (0.4-2.0) 08/20/21 18:54 Calcium 8.8 mg/dl (8.5-10.1) 08/23/21 07:48 Phosphorus 2.7 mg/dl (2.5-4.9) D 08/21/21 14:00 Magnesium 1.4 mg/dl (1.8-2.4) L 08/23/21 07:48 Total Bilirubin 0.6 mg/dl (0.2-1) 08/23/21 07:48 AST 41 U/L (15-37) H 08/23/21 07:48 ALT 44 U/L (12-78) 08/23/21 07:48 Alkaline Phosphatase 151 U/L (45-117) H 08/23/21 07:48 Troponin I < 0.015 ng/ml (0-0.045) 08/20/21 18:54 C-Reactive Protein 5.52 mg/dl (0-0.29) H 08/20/21 18:54 Total Protein 7.4 gm/dl (6.4-8.2) 08/23/21 07:48 Albumin 2.5 gm/dl (3.4-5.0) L 08/23/21 07:48 Globulin 4.9 gm/dl (2.5-4.0) H 08/23/21 07:48 Albumin/Globulin Ratio 0.5 (0.9-2) L 08/23/21 07:48 Amylase 1005 U/L (25-115) H 08/21/21 14:00 Lipase 61916 U/L (73-393) H 08/23/21 07:48 Procalcitonin 0.38 ng/ml (0-0.5) 08/20/21 18:54 Urine Color Yellow 08/21/21 01:42 Urine Appearance Clear (Clear) 08/21/21 01:42 Urine pH 5.0 (4.5-7.5) 08/21/21 01:42 Ur Specific Wilmot 1.012 (1.000-1.030) 08/21/21 01:42 Urine Protein 1+ (Negative) H 08/21/21 01:42 Urine Glucose (UA) Negative (Negative) 08/21/21 01:42 Urine Ketones Negative (Negative) 08/21/21 01:42 Urine Blood Trace (Negative) H 08/21/21 01:42 Urine Nitrite Negative (Negative) 08/21/21 01:42 Urine Bilirubin Negative (Negative) 08/21/21 01:42 Urine Urobilinogen Negative (Negative) 08/21/21 01:42 Ur Leukocyte Esterase Negative (Negative) 08/21/21 01:42 Urine WBC (Auto) 0 /hpf (0-5) 08/21/21 01:42 Urine RBC (Auto) 0-4 /hpf (0-4) 08/21/21 01:42 U Hyaline Cast (Auto) 0 /lpf (0-5) 08/21/21 01:42 U Epithel Cells (Auto) 0-5 /lpf (0-5) 08/21/21 01:42 Urine Bacteria (Auto) Negative (Negative) 08/21/21 01:42 Ur Random Creatinine 77.0 mg/dl 08/21/21 01:42 Ur Random Sodium 91 mmol/L 08/21/21 01:42 Ur Random Urea Nitrogn 367 mg/dl 08/21/21 01:42 COVID-19 Eval Order Covid19 at [facility] 08/20/21 18:54 SARS-CoV-2 (PCR) NEGATIVE (Negative) 08/20/21 18:54
--- NOTE | 2021-08-23 10:17 | Nephrology Progress Note ---
Date of Service August 23, 2021 Assessment & Plan (1) JUN (acute kidney injury): Plan: Clinically consistent with prerenal physiology from dehydration superimposed on advanced CKD. Non-oliguric. Creatinine improving. Volume status acceptable. Electrolytes normal. No emergent indication for dialysis. Medications appropriately dosed for kidney dysfunction. Monitor CK on daptomycin. UA acellular. CT did not demonstrate obstruction. IVF may be stopped once taking adequate PO. Consider holding IVF after current infusion complete. Repeat a metabolic profile tomorrow AM. Avoid NSAIDS. Hold lisinopril and HCTZ. (2) CKD (chronic kidney disease): Plan: Biopsy proven advanced atherosclerotic disease with ischemic changes and history of ATN. Multiple episodes of JUN in the past. Followed by Dr. Guadarrama. CKD IIIB A3 (creatinine ~2.5 with 500 mg/d proteinuria). Goals of care reviewed. (3) Hypotensive episode: Plan: Volume depleted in setting of recent GI symptoms. Possible underlying pancreatitis with cyst in head of pancreas. Will require close outpatient follow up. HCTZ held. Lisinopril held. BP acceptable this AM. POD #1 s/p ID foot lesion. (4) Chronic venous insufficiency: Plan: Remains on dapto and Zosyn for venous ulcer. Admission and Anticipated Discharge Date Admission Date: August 20, 2021 Subjective s/p ID by ortho yesterday. Slept well. Reports adequate pain control. No fevers or chills. Denies abdominal pain. Ate breakfast without difficulty this AM. Review of Systems Review of Systems: All systems reviewed & are unremarkable except as noted in HPI & below Physical Exam Constitutional: well developed; no acute distress Eyes: no scleral abnormality and no corneal abnormality ENMT: Mouth: no oral mucosal abnormality and oral mucous membranes not dry Neck: normal visual inspection and trachea midline Respiratory: normal respiratory effort Auscultation: lungs clear to auscultation bilaterally Cardiovascular: Rate/Rhythm: regular rate Heart Sounds: normal S1 and normal S2 Extremities: no edema Musculoskeletal: Extremities: no cyanosis and no clubbing Skin: normal turgor and + ulcer Neurologic: Motor/Sensory: no tremor and no asterixis Psychiatric: Orientation: alert and oriented x 3 Results & Data ([facility]) Vital Signs (Past 12 Hours) Vital Signs Temp Pulse Pulse Pulse Resp BP Pulse Ox 08/23/21 07:23 37.3 C 93 H 18 109/70 97 08/23/21 07:19 92 H 08/23/21 04:36 37.2 C 97 H 16 109/65 95 08/23/21 00:42 84 08/22/21 23:23 37.8 C H 89 18 100/60 99 Laboratory Results Laboratory Results - last 24 hr 08/23/21 08/23/21 07:48 07:48 WBC 7.90 RBC 3.25 L Hgb 11.6 L Hct 35.3 L MCV 108.6 H MCH 35.7 H MCHC 32.9 RDW Std Deviation 50.5 H RDW Coeff of Machelle 12.7 Plt Count 342 MPV 8.7 Sodium 138 Potassium 4.1 Chloride 110 H Carbon Dioxide 19 L Anion Gap 9.0 BUN 26 H Creatinine 2.00 H D Est Cr Clr Drug Dosing 58.5 Est GFR ( Amer) 46.0 Est GFR (Non-Af Amer) 39.7 BUN/Creatinine Ratio 13.1 Glucose 90 Calcium 8.8 Magnesium 1.4 L Total Bilirubin 0.6 AST 41 H ALT 44 Alkaline Phosphatase 151 H Total Protein 7.4 Albumin 2.5 L Globulin 4.9 H Albumin/Globulin Ratio 0.5 L Lipase 31752 H PG Care Time/CCT Total # of Minutes Spent Total Time Spent with Patient: Total time spent is greater than 50% in coordination of care (as documented) at patient's floor/unit and/or counseling patient: Coding Level of Care Code 66298 Subseq Hosp Care Lvl 3 Diagnoses JUN (acute kidney injury) N17.9 CKD (chronic kidney disease) N18.9 Chronic kidney disease stage: unspecified stage Hypotensive episode I95.9 Chronic venous insufficiency I87.2 (1) CKD (chronic kidney disease) Chronic kidney disease stage: unspecified stage Qualified Code(s): N18.9 - Chronic kidney disease, unspecified
[2021-08-23] MEDS ORDERED: SODIUM BICARBONATE 650 MG TAB PO STA (10:18)
--- NOTE | 2021-08-23 12:36 | Hospitalist Progress Note ---
Date of Service August 23, 2021 Assessment & Plan (1) Left foot infection: Plan: Long-standing ulcers of left foot. Has seen Wound Care for years. S/p I&D on 08/[address] Ghosh. - Follow culture and sensitivity of drainage from 08/20. - No growth so far. - Follow blood cultures -> No growth on 08/23. - Follow wound culture from surgery on 08/22 - Negative so far. - Continue daptomycin IV and Zosyn IV begun in the ED - Consulted wound care - I&D given tenosynovitis involvement (2) Pancreatitis: Plan: CT a/p on 08/20 noted sonal-pancreatic stranding with a suspected pseudocyst. Patient without any major symptoms of abdominal pain, nausea, or vomiting. -> Restarted diet cautiously - Monitor lipase & symptoms -> Lipase still stable ~11k; however, no symptoms whatsoever. (3) Acute kidney injury superimposed on chronic kidney disease: Plan: Creatinine 4.25 upon admission, with recent creatinines from 08/14: 2.74-3.35-3. 54. - Hold HCTZ - Consulted nephrology - Appreciate recs. Cr improving; down to 2.0 on 08/23. (4) Hypotensive episode: Plan: Blood pressure initially 88/64, responded to IV fluids to 106/69. Presently 110/70. - Continue rehydration per nephrology - Hold HCTZ (5) HTN (hypertension): Plan: As above (6) Chronic kidney disease with symptom management only, stage 4 (severe): Plan: See above. - Reduced allopurinol to 50 mg PO daily for CrCl (7) Chronic venous insufficiency: Plan: Per vascular note from 12/06/2020, hx of: Left GSV radiofrequency ablation, left remnant GSV Venaseal, right GSV Venaseal, and left pathologic leasing property manager radiofrequency ablation. - F/u with vascular - No inpatient needs (8) DVT prophylaxis: Plan: Hx of DVT in 07/2018. - Continue apixaban Admission and Anticipated Discharge Date Admission Date: August 20, 2021 Subjective Doing well. Pain is pretty well controlled. Was a bit worse earlier this morni ng, but did well with the pain medication. No stomach pain, nausea, or vomiting. Physical Exam Constitutional: WD/WN, vitals as above Eyes: EOM intact bilaterally; no conjunctival abnormality ENMT: external ear and nose normal, oropharynx normal Neck: trachea midline, no thyromegaly normal visual inspection Respiratory: normal respiratory effort, lungs clear to auscultation no respiratory distress Cardiovascular: RRR, no murmur, no edema Gastrointestinal (Abdomen): Inspection/Auscultation: abdomen normal to inspection; abdomen not distended Musculoskeletal: no cyanosis or clubbing, extremities motor strength 5/5 Skin: no rashes, warm and dry Bandage on left foot. Neurologic: moves all extremities and awake Psychiatric: Orientation: alert, oriented to person and cooperative Results & Data Results & Data ([facility]) Vital Signs (Past 12 Hours) Vital Signs Temp Pulse Pulse Pulse Resp BP Pulse Ox 08/23/21 11:41 36.4 C L 107 H 20 107/69 97 08/23/21 07:23 37.3 C 93 H 18 109/70 97 08/23/21 07:19 92 H 08/23/21 04:36 37.2 C 97 H 16 109/65 95 08/23/21 00:42 84 PG Care Time/CCT Total # of Minutes Spent Total Time Spent with Patient: Total time spent is greater than 50% in coordination of care (as documented) at patient's floor/unit and/or counseling patient: Coding Level of Care Code 46973 Subseq Hosp Care Lvl 3 Diagnoses Left foot infection L08.9 Pancreatitis K85.90 Acute kidney injury superimposed on chronic kidney disease N17.9; N18.9 Hypotensive episode I95.9 HTN (hypertension) I10 Chronic kidney disease with symptom management only, stage 4 (severe) N18.4 Chronic venous insufficiency I87.2 DVT prophylaxis Z29.9
[2021-08-23] MEDS: MAGNESIUM SULFATE / D5W 1 GM/100 ML BAG IV SCH ×3 (14:24→18:31)
--- NOTE | 2021-08-23 15:28 | Cardiology Progress Note ---
Date of Service August 23, 2021 Assessment & Plan (1) MVP (mitral valve prolapse): (2) Chest pain, exertional: (3) Mitral regurgitation: (4) Preop cardiovascular exam: Plan: ASSESSMENT/PLAN: 1. Exertional chest pain: This has occurred at work intermittently pre- hospital. No chest pain while here. Outpatient stress testing would be appropriate once he has recovered from a surgical procedure. Would likely require pharmacologic stress testing given his ongoing wound issues of his lower extremity. 2. Mitral valve prolapse with regurgitation: Reportedly moderate mitral regurgitation in 2016. Can repeat imaging as an outpatient 3. Disposition: Will request outpatient follow-up in the cardiology office a few weeks after discharge so that appropriate testing can be ordered at that time. Cardiology will sign off at this time. Please call with any other questions or concerns. Admission and Anticipated Discharge Date Admission Date: August 20, 2021 Subjective He is now postop day 1 for irrigation and debridement. He tolerated the procedure well. He denies chest pain, palpitations, shortness of breath. No reported syncope. He was alone in his hospital room. Review of systems: As above. Physical Exam Physical Exam: Gen.: No acute distress. Alert and oriented. HEENT: Anicteric sclera. Neck: No JVD. Cardiac: Regular. Normal S1-S2. 1/6 systolic murmur at the apex. No rubs or gallops. Pulmonary: Clear to auscultation bilaterally without wheezes, rales, or rhonchi. Abdomen: Soft, nontender, nondistended, with normoactive bowel sounds. No bruits noted. Extremities: 2+ radial pulses bilaterally. Left foot bandaged. No edema or cyanosis. Psychiatric: Affect appears appropriate. Results & Data ([facility]) Vital Signs (Past 12 Hours) Vital Signs Temp Pulse Pulse Pulse Resp BP Pulse Ox 08/23/21 14:56 37.0 C 107 H 20 116/74 98 08/23/21 11:41 36.4 C L 107 H 20 107/69 97 08/23/21 07:23 37.3 C 93 H 18 109/70 97 08/23/21 07:19 92 H 08/23/21 04:36 37.2 C 97 H 16 109/65 95 Laboratory Results Laboratory Results - last 24 hr 08/23/21 08/23/21 07:48 07:48 WBC 7.90 RBC 3.25 L Hgb 11.6 L Hct 35.3 L MCV 108.6 H MCH 35.7 H MCHC 32.9 RDW Std Deviation 50.5 H RDW Coeff of Machelle 12.7 Plt Count 342 MPV 8.7 Sodium 138 Potassium 4.1 Chloride 110 H Carbon Dioxide 19 L Anion Gap 9.0 BUN 26 H Creatinine 2.00 H D Est Cr Clr Drug Dosing 58.5 Est GFR ( Amer) 46.0 Est GFR (Non-Af Amer) 39.7 BUN/Creatinine Ratio 13.1 Glucose 90 Calcium 8.8 Magnesium 1.4 L Total Bilirubin 0.6 AST 41 H ALT 44 Alkaline Phosphatase 151 H Total Protein 7.4 Albumin 2.5 L Globulin 4.9 H Albumin/Globulin Ratio 0.5 L Lipase 07911 H Diagnostic Findings Telemetry personally reviewed: Sinus rhythm and sinus tachycardia. No arrhythmia noted. Chart reviewed. Medications Administered Current Inpatient Medications Acetaminophen (Acetaminophen 325 Mg Tab) 650 mg PO Q4H PRN PRN Reason: Pain or Fever Stop: 09/19/21 23:07 Last Admin: 08/23/21 00:38 Dose: 650 mg Documented by: Allopurinol (Allopurinol 100 Mg Tab) 50 mg PO DAILY [facility] Stop: 09/22/21 08:59 Last Admin: 08/23/21 08:30 Dose: 50 mg Documented by: Apixaban (Apixaban 5 Mg Tablet) 5 mg PO BID [facility] Stop: 09/22/21 20:59 Bisacodyl (Bisacodyl 10 Mg Supp) 10 mg MI DAILY PRN PRN Reason: Constipation Stop: 09/21/21 19:28 Hydromorphone HCl (Hydromorphone Inj 0.5 Mg/0.5 Ml Syr) 0.5 mg IV Q4H PRN PRN Reason: Pain or Pre PT Stop: 09/05/21 19:28 Last Admin: 08/23/21 08:39 Dose: 0.5 mg Documented by: Daptomycin 350 mg/ Syringe 7 mls @ 3.5 mls/min IV Q24H [facility]; Protocol Stop: 08/28/21 17:59 Last Admin: 08/22/21 20:24 Dose: 3.5 mls/min Documented by: Piperacillin Sod/Tazobactam (Sod 3.375 gm/ Dextrose) 115 mls @ 28.75 mls/hr IV Q8H [facility]; Protocol Stop: 08/28/21 01:59 Last Infusion: 08/23/21 14:39 Dose: Infused Documented by: Magnesium Sulfate/Dextrose (Magnesium Sulfate / D5w) 1 gm in 100 mls @ 50 mls/hr IV Q2H [facility] Stop: 08/23/21 18:59 Last Admin: 08/23/21 14:24 Dose: 50 mls/hr Documented by: Magnesium Hydroxide (Magnesium Hydroxide Susp 30 Ml Udc) 30 ml PO Q6H PRN PRN Reason: Constipation Stop: 09/21/21 19:28 Miscellaneous Information (Daptomycin Consult Active) 1 ea N/A UD PRN PRN Reason: Consult Stop: 09/19/21 23:07 Miscellaneous Information (Piperacill/Tazobac Consult Active) 1 ea N/A UD PRN PRN Reason: Consult Stop: 09/19/21 23:07 Multivitamins (Multivitamin Tab) 1 tab PO QAM [facility] Stop: 09/22/21 08:59 Last Admin: 08/23/21 08:30 Dose: 1 tab Documented by: Naloxone HCl (Naloxone Hcl 0.4 Mg/1 Ml Vial/Carp) 0.1 mg IV Q5M PRN PRN Reason: Oversedation/Resp Depression Stop: 09/21/21 19:28 Ondansetron HCl (Ondansetron Inj 2 Mg/Ml 2 Ml Vial) 4 mg IV Q6H PRN PRN Reason: Nausea Stop: 09/19/21 23:07 Oxycodone HCl (Oxycodone Hcl Ir 5 Mg Tab (Immediate Release)) 5 - 10 mg PO Q4H PRN PRN Reason: Pain or Pre PT Stop: 09/05/21 19:28 Last Admin: 08/23/21 14:23 Dose: 10 mg Documented by: PG Care Time/CCT Total # of Minutes Spent Total Time Spent with Patient: Total time spent is greater than 50% in coordination of care (as documented) at patient's floor/unit and/or counseling patient: Coding Level of Care Code 58506 Subseq Hosp Care Lvl 3 Diagnoses MVP (mitral valve prolapse) I34.1 Chest pain, exertional R07.9 Mitral regurgitation I34.0 Preop cardiovascular exam Z01.810
[2021-08-23] MEDS: DAPTOmycin 350 MG in SYRINGE 0 ML IV SCH (18:32)
[2021-08-23] MEDS ORDERED: SODIUM CHLORIDE 0.9% 1000ML 1,000 ML IV ONE ×2 (19:56→23:26)
[2021-08-23] MEDS: APIXABAN 5 MG TABLET PO SCH (20:11)
[2021-08-24] MEDS: PIPERACILLIN/TAZOBACTAM 3.375 GM in DEXTROSE 5% 100 ML IV SCH ×3 (01:51→17:51)
[2021-08-24 07:18] LABS: Hematocrit (blood only) 30.1 % (42-52); Hemoglobin 9.8 g/dL (14.0-18.0); Mean Corpuscular Hgb Conc 32.6 g/dL (32-36); Mean Corpuscular Volume 107.5 fL (80-100); Mean Platelet Volume 8.5 fL (7.4-10.4); Platelet Count 256 K/uL (130-400); RDW Coefficient of Variation 12.8 % (11.5-14.5); RDW Standard Deviation 50.2 fL (36.4-46.3); White Blood Count 6.61 K/uL (4.8-10.8)
[2021-08-24 07:42] LABS: BUN Creatinine Ratio 11.6 (10-20); Calcium 8.2 mg/dl (8.5-10.1); Creatinine Clr Calc Pharmacy 63.6 ml/min; Est GFR (African American) 50.9 ml/min; Est GFR (Non-African American) 43.9 ml/min; Magnesium 1.9 mg/dl (1.8-2.4); Potassium 4.1 mmol/L (3.5-5.1)
[2021-08-24 07:45] LABS: Albumin Globulin Ratio 0.5 (0.9-2); Bilirubin,Total 0.5 mg/dl (0.2-1); Globulin 4.3 gm/dl (2.5-4.0); Total Protein 6.3 gm/dl (6.4-8.2)
--- NOTE | 2021-08-24 08:57 | Orthopedic Progress Note ---
Date of Service August 24, 2021 Assessment & Plan (1) Abscess of left foot: Plan: POD 2 s/p I&D left foot PT/OT; WBAT on heel only DVT proph - Eliquis, SCD's Pain management as written. Continue pkg removal tomorrrow. Await ID note. Admission and Anticipated Discharge Date Admission Date: August 20, 2021 Subjective POD 2 Pt feeling well. Having some pain in the foot when getting OOB to BR. Pain controlled at rest. States he spoke to [facility] ID team yesterday. Physical Exam 2 Physical Exam: Dressings removed. Medial ulcer healing well. Incisions well approximated. Mild tissue maceration at the distal ends. No purulent drainage. One full strand of Iodiform packing removed. One strand remaining. 8" of packing removed from the piece remaining. All wounds redressed with adaptic, 4x4's, kerlix, and loose estephania wrap. Results & Data ([facility]) Vital Signs (Past 12 Hours) Vital Signs Temp Pulse Pulse Pulse Resp BP BP 08/24/21 07:40 37.0 C 84 20 102/68 08/24/21 06:12 85 08/24/21 04:06 37.5 C 78 18 107/66 08/24/21 01:26 107/66 08/24/21 00:07 100 H 08/23/21 22:45 38.2 C H 98 H 18 91/51 L Pulse Ox 08/24/21 07:40 97 08/24/21 06:12 08/24/21 04:06 93 08/24/21 01:26 08/24/21 00:07 08/23/21 22:45 94
[2021-08-24] MEDS: oxyCODONE HCL IR 5 MG TAB (IMMEDIATE RELEASE) PO PRN (09:13)
[2021-08-24] MEDS: MULTIVITAMIN TAB PO SCH (09:13)
[2021-08-24] MEDS: APIXABAN 5 MG TABLET PO SCH ×2 (09:13→21:56)
[2021-08-24] MEDS: allopurinoL 100 MG TAB PO SCH (09:13)
--- NOTE | 2021-08-24 10:43 | Nephrology Progress Note ---
Date of Service August 24, 2021 Assessment & Plan (1) JUN (acute kidney injury): Plan: Clinically consistent with prerenal physiology from dehydration superimposed on advanced CKD. Non-oliguric. Creatinine improving. Volume status acceptable. Electrolytes normal. No emergent indication for dialysis. Medications appropriately dosed for kidney dysfunction. Monitor CK on daptomycin. Off IVF. PO intake adequate. Avoid NSAIDS. Hold lisinopril and HCTZ. May restart HCTZ as needed. Follow up with Dr. Guadarrama within 1-2 weeks of discharge. I have nothing additional to add at this time and will sign-off. Please call with questions or concerns. (2) CKD (chronic kidney disease): Plan: Biopsy proven advanced atherosclerotic disease with ischemic changes and history of ATN. Multiple episodes of JUN in the past. Followed by Dr. Guadarrama. CKD IIIB A3 (creatinine ~2.5 with 500 mg/d proteinuria). Goals of care reviewed. (3) Hypotensive episode: Plan: Volume depleted in setting of recent GI symptoms. Possible underlying pancreatitis with cyst in head of pancreas. Will require close outpatient follow up. HCTZ held. Lisinopril held. BP acceptable this AM. POD #2 s/p ID foot lesion. ID consulted for abx therapy. Admission and Anticipated Discharge Date Admission Date: August 20, 2021 Subjective No acute events overnight. Denies pain. Appetite good. Review of Systems Review of Systems: All systems reviewed & are unremarkable except as noted in HPI & below Physical Exam Constitutional: well developed; no acute distress Eyes: no scleral abnormality and no corneal abnormality ENMT: Mouth: no oral mucosal abnormality and oral mucous membranes not dry Neck: normal visual inspection and trachea midline Respiratory: normal respiratory effort Auscultation: lungs clear to auscultation bilaterally Cardiovascular: Rate/Rhythm: regular rate Heart Sounds: normal S1 and normal S2 Extremities: no edema Musculoskeletal: Extremities: no cyanosis and no clubbing Skin: normal turgor and + ulcer Neurologic: Motor/Sensory: no tremor and no asterixis Psychiatric: Orientation: alert and oriented x 3 Results & Data ([facility]) Vital Signs (Past 12 Hours) Vital Signs Temp Pulse Pulse Pulse Resp BP BP 08/24/21 07:40 37.0 C 84 20 102/68 08/24/21 06:12 85 08/24/21 04:06 37.5 C 78 18 107/66 08/24/21 01:26 107/66 08/24/21 00:07 100 H 08/23/21 22:45 38.2 C H 98 H 18 91/51 L Pulse Ox 08/24/21 07:40 97 08/24/21 06:12 08/24/21 04:06 93 08/24/21 01:26 08/24/21 00:07 08/23/21 22:45 94 PG Care Time/CCT Total # of Minutes Spent Total Time Spent with Patient: Total time spent is greater than 50% in coordination of care (as documented) at patient's floor/unit and/or counseling patient: Coding Level of Care Code 91389 Subseq Hosp Care Lvl 3 Diagnoses JUN (acute kidney injury) N17.9 CKD (chronic kidney disease) N18.9 Chronic kidney disease stage: unspecified stage Hypotensive episode I95.9 (1) CKD (chronic kidney disease) Chronic kidney disease stage: unspecified stage Qualified Code(s): N18.9 - Chronic kidney disease, unspecified
--- NOTE | 2021-08-24 14:05 | Hospitalist Progress Note ---
Date of Service August 24, 2021 Assessment & Plan (1) Left foot infection: Plan: Long-standing ulcers of left foot. Has seen Wound Care for years. S/p I&D on 08/[address] Ghosh. With likely sepsis on presentation with tachycardia, hypotension. - Follow culture and sensitivity of drainage from 08/20. - No growth so far. - Follow blood cultures -> No growth on 08/23. - Follow wound culture from surgery on 08/22 - Negative so far. - Continued daptomycin and Zosyn until 08/24 -> Switched to dapto/ceftriaxone per ID recs on 08/24 - Consulted wound care - ID recs: Get MRI of left foot for osteomyelitis. (2) Pancreatitis: Plan: CT a/p on 08/20 noted sonal-pancreatic stranding with a suspected pseudocyst. Patient without any major symptoms of abdominal pain, nausea, or vomiting. -> Restarted diet cautiously - Monitor lipase & symptoms -> Lipase down to 7k; however, no still symptoms whatsoever. (3) Acute kidney injury superimposed on chronic kidney disease: Plan: Creatinine 4.25 upon admission, with recent creatinines from 08/14: 2.74-3.35-3.54. - Hold HCTZ - Consulted nephrology - Appreciate recs. Cr improving; down to 2.0 on 08/23. (4) Hypotensive episode: Plan: Blood pressure initially 88/64, responded to IV fluids to 106/69. Presently 110/70. - Continue rehydration per nephrology - Hold HCTZ (5) HTN (hypertension): Plan: As above (6) Chronic kidney disease with symptom management only, stage 4 (severe): Plan: See above. - Reduced allopurinol to 50 mg PO daily for CrCl (7) Chronic venous insufficiency: Plan: Per vascular note from 12/06/2020, hx of: Left GSV radiofrequency ablation, left remnant GSV Venaseal, right GSV Venaseal, and left pathologic solar resource assessor radiofrequency ablation. - F/u with vascular - No inpatient needs (8) DVT prophylaxis: Plan: Hx of DVT in 07/2018. - Continue apixaban Admission and Anticipated Discharge Date Admission Date: August 20, 2021 Subjective Doing well. Minimal pain in the foot. Reports no fevers/chills, chest pain, shortness of breath, abdominal pain, nausea, or vomiting. Physical Exam Constitutional: WD/WN, vitals as above Eyes: EOM intact bilaterally; no conjunctival abnormality ENMT: external ear and nose normal, oropharynx normal Neck: trachea midline, no thyromegaly normal visual inspection Respiratory: normal respiratory effort, lungs clear to auscultation no respiratory distress Cardiovascular: RRR, no murmur, no edema Gastrointestinal (Abdomen): Inspection/Auscultation: abdomen normal to inspection; abdomen not distended Musculoskeletal: no cyanosis or clubbing, extremities motor strength 5/5 Skin: no rashes, warm and dry Bandage on left foot Neurologic: moves all extremities and awake Psychiatric: Orientation: alert, oriented to person and cooperative Results & Data Results & Data ([facility]) Vital Signs (Past 12 Hours) Vital Signs Temp Pulse Pulse Pulse Resp BP BP 08/24/21 11:47 36.5 C 91 H 16 109/68 08/24/21 07:40 37.0 C 84 20 102/68 08/24/21 06:12 85 08/24/21 04:06 37.5 C 78 18 107/66 Pulse Ox 08/24/21 11:47 95 08/24/21 07:40 97 08/24/21 06:12 08/24/21 04:06 93 PG Care Time/CCT Total # of Minutes Spent Total Time Spent with Patient: Total time spent is greater than 50% in coordination of care (as documented) at patient's floor/unit and/or counseling patient: Coding Level of Care Code 20656 Subseq Hosp Care Lvl 2 Diagnoses Left foot infection L08.9 Pancreatitis K85.90 Acute kidney injury superimposed on chronic kidney disease N17.9; N18.9 Hypotensive episode I95.9 HTN (hypertension) I10 Chronic kidney disease with symptom management only, stage 4 (severe) N18.4 Chronic venous insufficiency I87.2 DVT prophylaxis Z29.9
[2021-08-24] MEDS: DAPTOmycin 350 MG in SYRINGE 0 ML IV SCH (17:51)
--- NOTE | 2021-08-24 18:16 | Magnetic Resonance Report ---
MR foot LT w/o con CLINICAL HISTORY: Osteomyelitis left foot open wound. Surgical debridement 2 weeks ago. TECHNIQUE: Multisequence, multiplanar MR images of the left foot were obtained without contrast.. COMPARISON: None available at the time of this dictation. FINDINGS: Diffuse soft tissue swelling is seen most prominent in the dorsal surface of the foot. There is no ev idence of marrow edema to suggest osteomyelitis. IMPRESSION: Diffuse soft tissue swelling compatible with cellulitis without evidence of underlying osteomyelitis. ACT 112: Negative or not required by law. Electronically signed by: Gary Marie M.D. 08/24/2021 6:14 PM
[2021-08-25] MEDS: PIPERACILLIN/TAZOBACTAM 3.375 GM in DEXTROSE 5% 100 ML IV SCH ×2 (02:36→09:20)
[2021-08-25 08:28] LABS: Hemoglobin 10.8 g/dL (14.0-18.0); Mean Corpuscular Hemoglobin 35.2 pg (25-34); Mean Corpuscular Hgb Conc 32.7 g/dL (32-36); Mean Corpuscular Volume 107.5 fL (80-100); Mean Platelet Volume 8.6 fL (7.4-10.4); Platelet Count 309 K/uL (130-400); RDW Coefficient of Variation 12.7 % (11.5-14.5); RDW Standard Deviation 50.1 fL (36.4-46.3); Red Blood Count 3.07 M/uL (4.7-6.1); White Blood Count 7.48 K/uL (4.8-10.8)
--- NOTE | 2021-08-25 08:44 | Orthopedic Progress Note ---
Date of Service August 25, 2021 Assessment & Plan (1) Left foot infection: Plan: 41 yo male stable POD #3 s/p left foot I&D 1. Med management- IV abx 2. DVT prophylaxis- SCDs 3. PT/OT 4. D/C planning- Admission and Anticipated Discharge Date Admission Date: August 20, 2021 Subjective Pt resting in bed, comfortable, denies pain Physical Exam Physical Exam: Dressing left foot changed, all of packing removed, wounds benign, no active drainage, clean dressing reapplied Results & Data ([facility]) Vital Signs (Past 12 Hours) Vital Signs Temp Pulse Pulse Resp BP Pulse Ox 08/25/21 08:18 36.8 C 82 18 114/77 97 08/25/21 03:09 37.0 C 84 18 110/68 98 08/24/21 22:50 37.3 C 92 H 18 114/73 97 08/24/21 22:47 95 H Laboratory Results 08/25/21 08/25/21 Range/Units 08:10 08:10 WBC 7.48 (4.8-10.8) K/uL RBC 3.07 L (4.7-6.1) M/uL Hgb 10.8 L (14.0-18.0) g/dL Hct 33.0 L (42-52) % MCV 107.5 H (80-100) fL MCH 35.2 H (25-34) pg MCHC 32.7 (32-36) g/dL RDW Std Deviation 50.1 H (36.4-46.3) fL RDW Coeff of Machelle 12.7 (11.5-14.5) % Plt Count 309 (130-400) K/uL MPV 8.6 (7.4-10.4) fL Sodium Pending Potassium Pending Chloride Pending Carbon Dioxide Pending Anion Gap Pending BUN Pending Creatinine Pending Est Cr Clr Drug Dosing Pending Est GFR ( Amer) Pending Est GFR (Non-Af Amer) Pending BUN/Creatinine Ratio Pending Glucose Pending Calcium Pending Total Creatine Kinase Pending Microbiology 08/22/21 18:08 Gram Stain - Final Foot,Left Aerobic and Anaerobic Culture - Preliminary Low counts mixed probable skin microbiota. Diagnostic Findings MRI left foot consistent with soft tissue cellulitis without evidence osteomy elitis
[2021-08-25 08:59] LABS: BUN Creatinine Ratio 11.8 (10-20); Calcium 9.8 mg/dl (8.5-10.1); Creatinine Clr Calc Pharmacy 65.7 ml/min; Est GFR (Non-African American) 45.7 ml/min; Potassium 3.9 mmol/L (3.5-5.1)
[2021-08-25] MEDS: APIXABAN 5 MG TABLET PO SCH ×2 (09:20→21:09)
[2021-08-25] MEDS: MULTIVITAMIN TAB PO SCH (09:20)
[2021-08-25] MEDS: allopurinoL 100 MG TAB PO SCH (09:21)
[2021-08-25] MEDS: DAPTOmycin 350 MG in SYRINGE 0 ML IV SCH (17:56)
--- NOTE | 2021-08-25 18:00 | Hospitalist Progress Note ---
Date of Service August 25, 2021 Assessment & Plan (1) Left foot infection: Plan: Long-standing ulcers of left foot. Has seen Wound Care for years. S/p I&D on 08/[address] Ghosh. With likely sepsis on presentation with tachycardia, hypotension. - Follow culture and sensitivity of drainage from 08/20. - No growth so far. - Follow blood cultures -> No growth on 08/23. - Follow wound culture from surgery on 08/22 - Negative so far. - Continued daptomycin and Zosyn until 08/24 -> Switched to dapto/ceftriaxone per ID recs on 08/24 - Consulted wound care - ID recs: Get MRI of left foot for osteomyelitis. -> Negative for osteomyelitis. - Discussed with ortho. Keep tonight; discharge on PO abx x 4 weeks. F/u with ortho in 10-14 days. Daily dressing changes. NWB on forefoot. (2) Pancreatitis: Plan: CT a/p on 08/20 noted sonal-pancreatic stranding with a suspected pseudocyst. Patient without any major symptoms of abdominal pain, nausea, or vomiting. -> Restarted diet cautiously - Monitor lipase & symptoms -> Lipase down to 7k; however, no still symptoms whatsoever. (3) Acute kidney injury superimposed on chronic kidney disease: Plan: Creatinine 4.25 upon admission, with recent creatinines from 08/14: 2.74-3.35-3.54. - Hold HCTZ - Consulted nephrology - Appreciate recs. Cr improving; down to 1.8 on 08/25. (4) Hypotensive episode: Plan: Blood pressure initially 88/64, responded to IV fluids to 106/69. Presently 110/70. - Continue rehydration per nephrology - Hold HCTZ (5) HTN (hypertension): Plan: As above (6) Chronic kidney disease with symptom management only, stage 4 (severe): Plan: See above. 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 - F/u with vascular - No inpatient needs (8) DVT prophylaxis: Plan: Hx of DVT in 07/2018. - Continue apixaban Admission and Anticipated Discharge Date Admission Date: August 20, 2021 Subjective Doing well today. No pain. Feels good. Physical Exam Constitutional: WD/WN, vitals as above Eyes: EOM intact bilaterally; no conjunctival abnormality ENMT: external ear and nose normal, oropharynx normal Neck: trachea midline, no thyromegaly normal visual inspection Respiratory: normal respiratory effort, lungs clear to auscultation no respiratory distress Cardiovascular: RRR, no murmur, no edema Gastrointestinal (Abdomen): Inspection/Auscultation: abdomen normal to inspection; abdomen not distended Musculoskeletal: no cyanosis or clubbing, extremities motor strength 5/5 Skin: no rashes, warm and dry Left foot bandaged Neurologic: moves all extremities and awake Psychiatric: Orientation: alert, oriented to person and cooperative Results & Data Results & Data ([facility]) Vital Signs (Past 12 Hours) Vital Signs Temp Pulse Resp BP Pulse Ox 08/25/21 17:05 36.6 C 72 18 134/90 96 08/25/21 08:18 36.8 C 82 18 114/77 97 PG Care Time/CCT Total # of Minutes Spent Total Time Spent with Patient: Total time spent is greater than 50% in coordination of care (as documented) at patient's floor/unit and/or counseling patient: Coding Level of Care Code 09315 Subseq Hosp Care Lvl 2 Diagnoses Left foot infection L08.9 Pancreatitis K85.90 Acute kidney injury superimposed on chronic kidney disease N17.9; N18.9 Hypotensive episode I95.9 HTN (hypertension) I10 Chronic kidney disease with symptom management only, stage 4 (severe) N18.4 Chronic venous insufficiency I87.2 DVT prophylaxis Z29.9
[2021-08-25] MEDS ORDERED: cefTRIAXone SODIUM 2,000 MG in DEXTROSE 5% 50 ML IV SCH (20:00)
[2021-08-26 08:06] LABS: Hematocrit (blood only) 33.1 % (42-52); Hemoglobin 10.8 g/dL (14.0-18.0); Mean Corpuscular Hgb Conc 32.6 g/dL (32-36); Mean Corpuscular Volume 107.1 fL (80-100); Mean Platelet Volume 8.7 fL (7.4-10.4); Platelet Count 359 K/uL (130-400); RDW Coefficient of Variation 12.8 % (11.5-14.5); RDW Standard Deviation 50.5 fL (36.4-46.3); Red Blood Count 3.09 M/uL (4.7-6.1)
[2021-08-26 08:48] LABS: BUN Creatinine Ratio 13.3 (10-20); Calcium 9.5 mg/dl (8.5-10.1); Creatinine Clr Calc Pharmacy 79.6 ml/min; Est GFR (African American) 66.8 ml/min; Est GFR (Non-African American) 57.6 ml/min; Magnesium 1.5 mg/dl (1.8-2.4)
[2021-08-26] MEDS: APIXABAN 5 MG TABLET PO SCH (09:16)
[2021-08-26] MEDS: allopurinoL 100 MG TAB PO SCH (09:16)
[2021-08-26] MEDS: MULTIVITAMIN TAB PO SCH (10:34)
--- NOTE | 2021-08-26 16:46 | Discharge Summary ---
Date of Service August 26, 2021 Admission HPI Per Admitting Provider The patient is a 41-year-old male with a past medical history including recently worsening CKD, vitamin D deficiency, UTI, history of COVID-19 virus infection, hypertension, CKD stage IV, secondary hyperparathyroidism of renal origin, CVI, tachycardia, venous stasis ulcer of left lower leg with edema. 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 Upon presentation to the emergency department blood pressure was at its lowest 88/64, but did respond to IV fluids to a pressure of 106/69. Abnormal laboratories: Hemoglobin 12.3, hematocrit 36.6, platelets 417, sodium 133, potassium 5.1, BUN 57, creatinine 4.25. X-ray of left foot and ankle showed soft tissue gas, with no suggestion of osteomyelitis Principal Diagnosis Left foot ulcer and abscess (with tenosynovitis) s/p I&D with Dr. Ghosh on 08/22/2021 - 4 weeks Augmentin Discharge Exam Constitutional WD/WN, vitals as above Eyes EOM intact bilaterally; no conjunctival abnormality ENMT external ear and nose normal, oropharynx normal Neck trachea midline, no thyromegaly normal visual inspection Respiratory normal respiratory effort, lungs clear to auscultation no respiratory distress Cardiovascular RRR, no murmur, no edema Gastrointestinal (Abdomen) Inspection/Auscultation: abdomen normal to inspection; abdomen not distended Musculoskeletal no cyanosis or clubbing, extremities motor strength 5/5 Skin no rashes, warm and dry + ulcer (On left foot.) Neurologic moves all extremities and awake Psychiatric Orientation: alert, oriented to person and cooperative Discharge Data Allergies Allergy/AdvReac Type Severity Reaction Status Date / Time doxycycline Allergy Severe Joint Verified 08/20/21 19:18 Pain, Shortness of breath cephalexin Allergy Mild Rash Verified 08/25/21 13:51 Cipro Allergy Mild throat Verified 06/09/18 08:28 swells ciprofloxacin Allergy Mild throat Verified 08/20/21 19:18 swells Consultations 08/20/21 20:07 ED Decision to Admit Stat 08/20/21 23:08 Consult Nephrology Routine 08/21/21 17:06 Consult Orthopedic Surgery Routine 08/22/21 07:39 Consult Cardiology Routine 08/23/21 12:36 Consult Infectious Diseases Routine Procedures Performed Operation Date: 08/22/21 12:05 Actual Procedures p Incision and Drainage Dorsum foot x 2 seperate sites(Left) - DO marsha Jeffers 3rd and 4th extensor tendons left foot(Left) - DO marsha Jeffers tenosynovectomy(Left) - Jose A Ghosh DO Ordered Studies 08/20/21 20:04 CT abd pelvis wo con Urgent CT foot LT wo con Urgent 08/24/21 14:17 MR foot LT w/o con Routine Hospital Course (1) Left foot infection: Long-standing ulcers of left foot. Has seen Wound Care for years. S/p I&D on 08/[address] Ghosh. With likely sepsis on presentation with tachycardia, hypotension. - Follow culture and sensitivity of drainage from 08/20. - No growth so far. - Follow blood cultures -> No growth on 08/23. - Follow wound culture from surgery on 08/22 - Negative so far. - Continued daptomycin and Zosyn until 08/24 -> Switched to dapto/ceftriaxone per ID recs on 08/24 - Consulted wound care - ID recs: Get MRI of left foot for osteomyelitis. -> Negative for osteomyelitis. - Discussed with ortho. Discharged on Augmentin x 4 weeks. F/u with ortho in 10- 14 days. Daily dressing changes. NWB on forefoot. Home health arranged for dressing changes. - Augmentin will cover all prior culture results with the exception of a single Pseudomonas culture from 12/2020. He cannot take Cipro due to allergy and Bactrim due to renal insufficiency. No hx of MRSA at all, so did not feel MRSA coverage was warranted given he cannot get doxy or Bactrim. His prior MSSAs have been resistant to clindamycin, and linezolid would be cost-prohibitive. (2) Pancreatitis: CT a/p on 08/20 noted sonal-pancreatic stranding with a suspected pseudocyst. Patient without any major symptoms of abdominal pain, nausea, or vomiting. -> Restarted diet cautiously - Monitor lipase & symptoms -> Lipase wavered from 7k to 10k; however, no still symptoms whatsoever. (3) Acute kidney injury superimposed on chronic kidney disease: Creatinine 4.25 upon admission, with recent creatinines from 08/14: 2.74-3.35-3.54. - Hold HCTZ on discharge. - Consulted nephrology - Appreciate recs. Cr improving; down to 1.5 on 08/26. (4) Hypotensive episode: Blood pressure initially 88/64, responded to IV fluids to 106/69. Presently 110/70. - Continue rehydration per nephrology - Hold HCTZ on discharge. - If warranted as outpatient, PCP or nephrology could start ARB or ACEi for kidney protection. (5) HTN (hypertension): As above (6) Chronic kidney disease with symptom management only, stage 4 (severe): See above. 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 - F/u with vascular - No inpatient needs (8) DVT prophylaxis: Hx of DVT in 07/2018. - Continue apixaban I certify that this patient is under my care and that I, or a physicians commercial escrow assistant working with me, had a face to-face encounter that meets the home health [id number] encounter requirements with this patient. The encounter with the patient was in whole, or in part, for the following medical condition, which is the primary reason for home health care (list medical condition): L foot ulcer, post-operative I certify that, based on my findings, the following services are medically necessary home health services: My clinical findings support the need for the above services because: Skilled Nsg Assessment Surgical Incision / Wound Skilled Nsg Instruction New Medications Skilled Nsg to Assess, Perform and Teach Wound Care Further, I certify that my clinical findings support that this patient is homebound (i.e. absences from home require considerable and taxing effort and are for medical reasons or rastafari services or infrequently or of short duration when for other reasons) because: Supportive Aid - Crutches Certification for Home Health Services: Based on the above findings, I certify that this patient is confined to the home and needs intermittent usp care, physical therapy and/or speech therapy or continues to need occupational therapy. The patient is under my care, and I have initiated the establishment of the plan of care. This patient will be followed by a physician who will periodically review the plan of care. Total Time Total Time Spent Total Time Spent (In Minutes): 35 Discharge Plan Discharge Items Patient Disposition: Home - Home Health Services Reason For Visit: LEFT FOOT ULCER Discharge Diagnosis: Left foot ulcer and abscess Tendon involvement Activity: Resume your previous activity Non-emergency contact: Primary Care Provider and Surgeon Call non-emergency contact if: your symptoms worsen Follow-up/Referrals: Francisco Guzman III, MD [Primary Care Provider] - 09/05/21 2:00 pm Clara Hearn CRNP [Nurse Practitioner] - (Please see Wound Care as soon as able. Please call to schedule this appointment.) Jose A Ghosh DO [Surgeon] - (Follow up in 10-14 days from the day of your surgery for a wound check. Please call to schedule this appointment.) Diet: Dialysis Renal Addtl Attending Provider Instructions: You were admitted to the hospital with foot infections that ended up having some underlying abscesses. Please take your antibiotic twice a day until it is gone (4 weeks). The first dose should be tonight before bedtime. Dr. Ghosh says no pressure on your forefoot. If you are up, you must use the boot to keep pressure on the heel. Home Health will come and change the dressing to start. You can also follow up with [facility]. We stopped your blood pressure medication. For now, as your kidneys recover, please just watch your blood pressure. Your PCP can put you back on a medication called an ACEi or ARB that will help protect your kidneys. 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 SPECIAL CARE INSTRUCTIONS: * Some drainage onto the dressing is normal and is no cause for alarm. * Some swelling is natural especially after walking. * When resting, keep your foot elevated above the level of your heart. * Call [facility] if you notice: -Increased drainage -Fever over 101 degrees F -Severe constant pain BANDAGE: * CHANGE DRESSING DAILY. KEEP WOUND COVERED UNTIL SEEN BACK IN THE OFFICE. * Keep bandage/cast dry at all times. FOLLOW UP VISIT WITH DR. GHOSH If appointment is not already scheduled: Please call [facility] after you get home today to schedule a follow-up appointment for [address] Ghosh at . Pending Studies at Discharge: No Stand-Alone Forms: My [facility], Smoking Cessation Medications and DC Order Prescriptions: New amoxicillin-pot clavulanate [Augmentin] 875-125 mg tablet 1 tab PO BID Qty: 60 RF: 0 Continued apixaban 5 mg tablet 5 mg PO BID Qty: 180 RF: 1 allopurinol 100 mg tablet 100 mg PO DAILY Qty: 90 RF: 3 Discontinued hydrochlorothiazide 25 mg tablet 25 mg PO QAM Qty: 90 RF: 3 Hold Instructions: low BP Discharge Orders: Discharge Order (Routine); Ordered 08/26/21 Ordered By: Tom Torres Admission Data Admit Date/Time: 08/20/21 21:10 Attending Provider: Tom Torres Admit Provider: Robson Reyez Primary Care Provider: Francisco Guzman III Other Providers: Tom Torres ; Robson Reyez ; Cheryl Guadarrama ; Brandan Ha ; Viraj Elizalde ; Franky Almonte ; Lexi Post ; Delbert Hernandez I. ; Naga Lebron II ; Nelly Horn ; Maikel Martin ; Fletcher Deluca. ; [facility] ; [facility] Other Interventions: Discharge Summary Assessment (RN) Last Done: 08/26/21 12:37 Coding Level of Care Code D/C DAY MANAGEMENT >30 MINS Diagnoses Left foot infection L08.9 Pancreatitis K85.90 Acute kidney injury superimposed on chronic kidney disease N17.9; N18.9 Hypotensive episode I95.9 HTN (hypertension) I10 Chronic kidney disease with symptom management only, stage 4 (severe) N18.4 Chronic venous insufficiency I87.2 DVT prophylaxis Z29.9
== END 2021-08-26 14:50 | disposition home health service (06) | DRG 853 ==
LOC: ED 16:13 → INTOOBSV 21:10 → SUATTDRO 21:10 → 2W 21:10 → 2N 08-22 17:53 → 2W 08-22 18:04

== ENCOUNTER 2021-10-01 08:46 | Inpatient (IN) ==
[2021-10-01] MEDS ORDERED: ONDANSETRON INJ 2 MG/ML 2 ML VIAL IV STA (09:06)
[2021-10-01] MEDS ORDERED: MoRPHine SULFATE 4 MG/ML 1 ML CARP\\VIAL IV PRN (09:06)
[2021-10-01] MEDS ORDERED: PROMETHAZINE 6.25 MG/50.25 ML BAG IV STA (09:06)
[2021-10-01] MEDS ORDERED: SODIUM CHLORIDE 0.9% 1000ML 2,000 ML IV ONE (09:06)
--- NOTE | 2021-10-01 09:12 | Emergency Department Note ---
Impression & Plan Acute pancreatitis, Tachycardia, Portal vein thrombosis, Acute dehydration, Hypomagnesemia, Coagulopathy ED Provider Note NAME: JOCELYN JENSEN AGE: 41 SEX: M : 1980 ARRIVES VIA: Walk-In INFORMANT: [Patient] ED PROVIDER(S): [Cuco Mckeon MD] CHIEF COMPLAINT: Abdominal pain, chest pain HISTORY OF PRESENT ILLNESS: The patient is a 41-year-old male who presents to the ED with epigastric abdominal and chest pain. He has noticed a bit of shortness of breath. The patient states that he was diagnosed with pancreatitis back in July. He was okay when he left the hospital for a while but over the last several weeks, his symptoms have returned. He is vomiting. He has epigastric pain. The pain is a 7 on a scale 1 out of 10. He has noticed some chest pain that seems to move into the back. He has been a bit short of breath. No fever. A few loose stools but no real diarrhea. The patient states he does drink alcohol but has not had alcohol lately. He states he still has his gallbladder. He states that he is not sure what caused the pancreatitis, the physicians were never completely sure. REVIEW OF SYSTEMS: See HPI for pertinent positives and negatives. A total of ten systems were reviewed and were otherwise negative. PMHx/PSHx: See Below SOCIAL HISTORY: See Below. PHYSICAL EXAM: GENERAL: Patient is in no acute distress. HEENT: No acute trauma, normocephalic atraumatic, mucous membranes moist, no nasal congestion, no scleral icterus. NECK: No stridor, no adenopathy, no meningismus, trachea is midline. LUNGS: Clear to auscultation bilaterally, no wheeze, no rhonchi, breath sounds equal. HEART: Tachycardic, regular rhythm, no murmurs. ABDOMEN: Soft, mildly tender in the epigastrium, bowel sounds positive, no hernias, no peritonitis. EXTREMITIES: No cyanosis. The patient does have a wrap on the left lower extremity. No edema to the right lower extremity. NEUROLOGIC: Oriented x 3, no acute motor or sensory deficits, no focal weakness. SKIN: No rash, no jaundice, no diaphoresis. DIFFERENTIAL DIAGNOSIS: Appendicitis, dehydration, testicular torsion, diverticulitis, UTI, obstruction, mesenteric ischemia, aortic pathology, inflammatory bowel disease, renal colic, PUD, pancreatitis, biliary pathology, hernia, volvulus, constipation, pneumonia, cardiac ischemia, as well as other pathologies. EMERGENCY DEPARTMENT COURSE/PROCEDURES: ECG: Indication was tachycardia and chest pain. The ECG shows a normal sinus rhythm with a rate of 95. There is no ST elevation, no PVCs. The QTc is 454. Continuous Cardiac Monitoring: An order was placed for continuous cardiac monitoring. The monitor shows a rate of 121 with sinus tachycardia. Critical Care Note: I have personally spent 43 minutes of critical care time in the direct management of this patient. This includes bedside care, interpretation of diagnostic studies, and testing, discussion with consultants, patient, and family members, and other required patient management activities. This 43 minutes is in excess of all separately billable procedures. MEDICAL DECISION MAKING: There is a mild leukocytosis which could be consistent with infection or may be his pain. There was a mild anemia with a hemoglobin of 12. The hemoglobin value is baseline. There is a normal platelet count. INR was quite high at gre ater than 10. Creatinine was elevated consistent with some dehydration. Magnesium was low at 1.4. There were some subtle liver enzyme elevations. ECG showed a sinus rhythm, no acute ischemia. Cardiac enzyme testing x1 was not consistent with acute cardiac injury. Lipase was quite high at over 30,000. Alcohol level was undetectable. Covid testing was negative. Chest film did not show pneumonia or CHF. Abdominal and pelvis CT showed a portal vein clot as well as pancreatitis. No bowel obstruction. On exam, the patient appeared dehydrated. He was initially tachycardic. The patient received IV saline, 2 L. He was given IV Phenergan, IV Zofran, IV morphine. He was given IV magnesium. The patient has multiple findings that require a hospital stay. The root cause for all findings is not yet clear. The patient is aware of the need for hospitalization. I did speak the case management team. The on-call hospitalist was consulted. 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 ECHO Secondary hyperparathyroidism of renal origin Staphylococcus aureus infection Superficial thrombosis of leg PER RECORDS UTI (urinary tract infection) Venous ulcer RECURRENT VENOUS ULCERATION (REASON FOR PROCEDURE) Vitamin D deficiency Surgical History Hx of biopsy LEFT KIDNEY S/P vascular surgery LLE 2/2 VENOUS INSUFFICIENCY Family History Mother FHx: lung cancer Hypertension Breast cancer Brother FHx: testicular cancer Hypertension Father Hypertension Unknown Myocardial infarction Social History Smoking Status: Never smoker Second Hand Exposure: No; Hx Alcohol Use: Yes Alcohol type: beer, wine and hard liquor Alcohol Intake Frequency Comment: daily Hx Substance Use: No Preferred Language: [place] Communication Ability: Effective Visual Impairment: No Limitations Link Machine Operator Required: No Beliefs That Will Affect Care: None marital status: Single Current Living Situation: Significant Other Current Living Situation Comment: Fiance Feels Safe at Home: Yes Assistive Devices: Crutches and Special Shoe Allergies Allergies Allergy/AdvReac Type Severity Reaction Status Date / Time doxycycline Allergy Severe Joint Verified 10/01/21 09:46 Pain, Shortness of breath cephalexin Allergy Mild Rash Verified 10/01/21 09:46 Cipro Allergy Mild throat Verified 06/09/18 08:28 swells ciprofloxacin Allergy Mild throat Verified 10/01/21 09:46 swells Home Meds Previous Rx's Medication Instructions Recorded apixaban 5 mg tablet 5 mg PO BID #180 tab 11/07/20 allopurinol 100 mg tablet 100 mg PO DAILY #90 tab 08/26/21 Results & Data (ED) Vital Signs Vital Signs - 24 hr 10/01/21 08:49 10/01/21 09:44 Temperature 36.7 C Temperature Source Temporal Artery Scan Pulse Rate 124 H Pulse Rhythm Regular Pulse Strength Normal Respiratory Rate 18 Respiratory Effort / Characteristics Non-Labored Spontaneous Respiratory Depth Normal Respiratory Pattern Regular Blood Pressure 120/90 Blood Pressure Mean 100 Blood Pressure Position Sitting Pulse Oximetry 100 Oxygen Delivery Method Room Air Room Air Sepsis Recent Fever Within 48 Hours No Sepsis New/Unexplained Change in Mental Status N/A Sepsis Action Taken by Nursing No Action Required Home Medications Current Medication List: was personally reviewed by me Laboratory Data Attestation: I reviewed the patient's lab results. Result diagrams: 10/01/21 09:31 10/01/21 09:31 Lab Results 10/01/21 10/01/21 10/01/21 Range/Units 09:31 09:31 09:31 WBC 11.78 H (4.8-10.8) K/uL RBC 3.33 L (4.7-6.1) M/uL Hgb 12.0 L (14.0-18.0) g/dL Hct 36.4 L (42-52) % MCV 109.3 H (80-100) fL MCH 36.0 H (25-34) pg MCHC 33.0 (32-36) g/dL RDW Std Deviation 59.4 H (36.4-46.3) fL RDW Coeff of Machelle 15.0 H (11.5-14.5) % Plt Count 288 (130-400) K/uL MPV 8.5 (7.4-10.4) fL Immature Gran % (Auto) 0.2 % Neut % (Auto) 68.7 % Lymph % (Auto) 11.8 % [place] % (Auto) 9.8 % Eos % (Auto) 9.2 % Baso % (Auto) 0.3 % Neut # (Auto) 8.09 H (1.4-6.5) K/uL Lymph # (Auto) 1.39 (1.2-3.4) K/uL [place] # (Auto) 1.16 H (0.11-0.59) K/uL Eos # (Auto) 1.08 H (0-0.5) K/uL Baso # (Auto) 0.04 (0-0.2) K/uL Immature Gran # (Auto) 0.02 (0.00-0.02) K/uL PT (9.0-12.0) Seconds INR (0.9-1.1) APTT (21.0-31.0) Seconds PTT Ratio Sodium 140 (136-145) mmol/L Potassium 3.5 (3.5-5.1) mmol/L Chloride 108 H (98-107) mmol/L Carbon Dioxide 24 (21-32) mmol/L Anion Gap 8.0 (3-11) BUN 15 (7-18) mg/dl Creatinine 1.55 H (0.6-1.4) mg/dl Est Cr Clr Drug Dosing 75.4 ml/min Est GFR ( Amer) 62.6 ml/min Est GFR (Non-Af Amer) 54.0 ml/min BUN/Creatinine Ratio 9.4 L (10-20) Glucose 106 H (70-99) mg/dl Calcium 8.4 L (8.5-10.1) mg/dl Magnesium 1.4 L (1.8-2.4) mg/dl Total Bilirubin 1.1 H (0.2-1) mg/dl AST 45 H (15-37) U/L ALT 31 (12-78) Alkaline Phosphatase 193 H (45-117) U/L Lactate Dehydrogenase (87-241) U/L Total Creatine Kinase (39-308) U/L Troponin I < 0.015 (0-0.045) ng/ml C-Reactive Protein (0-0.29) mg/dl Total Protein 7.8 (6.4-8.2) gm/dl Albumin 2.7 L (3.4-5.0) gm/dl Globulin 5.1 H (2.5-4.0) gm/dl Albumin/Globulin Ratio 0.5 L (0.9-2) Lipase 86194 H (73-393) U/L Procalcitonin (0-0.5) ng/ml Ethyl Alcohol mg/dL < 3.0 (0-3) mg/dl 10/01/21 10/01/21 10/01/21 Range/Units 12:17 12:17 12:17 WBC (4.8-10.8) K/uL RBC (4.7-6.1) M/uL Hgb (14.0-18.0) g/dL Hct (42-52) % MCV (80-100) fL MCH (25-34) pg MCHC (32-36) g/dL RDW Std Deviation (36.4-46.3) fL RDW Coeff of Machelle (11.5-14.5) % Plt Count (130-400) K/uL MPV (7.4-10.4) fL Immature Gran % (Auto) % Neut % (Auto) % Lymph % (Auto) % [place] % (Auto) % Eos % (Auto) % Baso % (Auto) % Neut # (Auto) (1.4-6.5) K/uL Lymph # (Auto) (1.2-3.4) K/uL [place] # (Auto) (0.11-0.59) K/uL Eos # (Auto) (0-0.5) K/uL Baso # (Auto) (0-0.2) K/uL Immature Gran # (Auto) (0.00-0.02) K/uL PT (9.0-12.0) Seconds INR (0.9-1.1) APTT (21.0-31.0) Seconds PTT Ratio Sodium (136-145) mmol/L Potassium (3.5-5.1) mmol/L Chloride (98-107) mmol/L Carbon Dioxide (21-32) mmol/L Anion Gap (3-11) BUN (7-18) mg/dl Creatinine (0.6-1.4) mg/dl Est Cr Clr Drug Dosing ml/min Est GFR ( Amer) ml/min Est GFR (Non-Af Amer) ml/min BUN/Creatinine Ratio (10-20) Glucose (70-99) mg/dl Calcium (8.5-10.1) mg/dl Magnesium (1.8-2.4) mg/dl Total Bilirubin (0.2-1) mg/dl AST (15-37) U/L ALT (12-78) Alkaline Phosphatase (45-117) U/L Lactate Dehydrogenase 194 (87-241) U/L Total Creatine Kinase 31 L (39-308) U/L Troponin I (0-0.045) ng/ml C-Reactive Protein 9.15 H (0-0.29) mg/dl Total Protein (6.4-8.2) gm/dl Albumin (3.4-5.0) gm/dl Globulin (2.5-4.0) gm/dl Albumin/Globulin Ratio (0.9-2) Lipase (73-393) U/L Procalcitonin 0.13 (0-0.5) ng/ml Ethyl Alcohol mg/dL (0-3) mg/dl 10/01/21 Range/Units 12:17 WBC (4.8-10.8) K/uL RBC (4.7-6.1) M/uL Hgb (14.0-18.0) g/dL Hct (42-52) % MCV (80-100) fL MCH (25-34) pg MCHC (32-36) g/dL RDW Std Deviation (36.4-46.3) fL RDW Coeff of Machelle (11.5-14.5) % Plt Count (130-400) K/uL MPV (7.4-10.4) fL Immature Gran % (Auto) % Neut % (Auto) % Lymph % (Auto) % [place] % (Auto) % Eos % (Auto) % Baso % (Auto) % Neut # (Auto) (1.4-6.5) K/uL Lymph # (Auto) (1.2-3.4) K/uL [place] # (Auto) (0.11-0.59) K/uL Eos # (Auto) (0-0.5) K/uL Baso # (Auto) (0-0.2) K/uL Immature Gran # (Auto) (0.00-0.02) K/uL PT > 90.0 H (9.0-12.0) Seconds INR > 10.7 H* (0.9-1.1) APTT 33.3 H (21.0-31.0) Seconds PTT Ratio 1.3 Sodium (136-145) mmol/L Potassium (3.5-5.1) mmol/L Chloride (98-107) mmol/L Carbon Dioxide (21-32) mmol/L Anion Gap (3-11) BUN (7-18) mg/dl Creatinine (0.6-1.4) mg/dl Est Cr Clr Drug Dosing ml/min Est GFR ( Amer) ml/min Est GFR (Non-Af Amer) ml/min BUN/Creatinine Ratio (10-20) Glucose (70-99) mg/dl Calcium (8.5-10.1) mg/dl Magnesium (1.8-2.4) mg/dl Total Bilirubin (0.2-1) mg/dl AST (15-37) U/L ALT (12-78) Alkaline Phosphatase (45-117) U/L Lactate Dehydrogenase (87-241) U/L Total Creatine Kinase (39-308) U/L Troponin I (0-0.045) ng/ml C-Reactive Protein (0-0.29) mg/dl Total Protein (6.4-8.2) gm/dl Albumin (3.4-5.0) gm/dl Globulin (2.5-4.0) gm/dl Albumin/Globulin Ratio (0.9-2) Lipase (73-393) U/L Procalcitonin (0-0.5) ng/ml Ethyl Alcohol mg/dL (0-3) mg/dl Administered Medications Lactated Ringer's (Lr) 1,000 mls @ 200 mls/hr IV .Q5H CURTIS Stop: 10/31/21 12:29 Last Admin: 10/01/21 18:08 Dose: 200 mls/hr Documented by: [id number] Infusion: 10/01/21 18:08 Dose: 200 mls/hr Documented by: [id number] Admin: 10/01/21 14:10 Dose: 200 mls/hr Documented by: [id number] Discontinued Medications Promethazine HCl (Phenergan) 6.25 mg in 50.25 mls @ 201 mls/hr IV NOW STA Stop: 10/01/21 09:20 Last Infusion: 10/01/21 15:50 Dose: 0 mls/hr Documented by: [id number] Admin: 10/01/21 09:52 Dose: 201 mls/hr Documented by: [id number] Sodium Chloride (Nss 1000ml) 2,000 mls @ 999 mls/hr IV .Q2H1M ONE Stop: 10/01/21 11:06 Last Infusion: 10/01/21 15:50 Dose: 0 mls/hr Documented by: [id number] Admin: 10/01/21 09:52 Dose: 999 mls/hr Documented by: [id number] Magnesium Sulfate/Dextrose (Magnesium Sulfate / D5w) 1 gm in 100 mls @ 100 mls/hr IV NOW STA Stop: 10/01/21 11:28 Last Infusion: 10/01/21 15:50 Dose: 0 mls/hr Documented by: [id number] Admin: 10/01/21 10:46 Dose: 100 mls/hr Documented by: [id number] Phytonadione 10 mg/ Sodium (Chloride) 51 mls @ 102 mls/hr IV 1330 ONE Stop: 10/01/21 13:59 Last Infusion: 10/01/21 15:50 Dose: 0 mls/hr Documented by: [id number] Admin: 10/01/21 14:09 Dose: 102 mls/hr Documented by: [id number] Ioversol (Optiray 320 100ml) 95 ml IV ONCE ONE Stop: 10/01/21 10:44 Last Admin: 10/01/21 10:32 Dose: 95 ml Documented by: [id number] Morphine Sulfate (Morphine Sulfate 4 Mg/Ml 1 Ml Carp\Vial) 4 mg IV Q15M PRN PRN Reason: Pain Stop: 10/15/21 09:05 Last Admin: 10/01/21 10:46 Dose: 4 mg Documented by: [id number] Ondansetron HCl (Ondansetron Inj 2 Mg/Ml 2 Ml Vial) 4 mg IV NOW STA Stop: 10/01/21 09:07 Last Admin: 10/01/21 09:52 Dose: 4 mg Documented by: [id number] Imaging Data Radiologist's Impression: Abdomen/Pelvis CT 10/01/21 09:06 CT OF THE ABDOMEN AND PELVIS WITH CONTRAST CLINICAL HISTORY: Epigastric pain. History of pancreatitis. COMPARISON STUDY: CT of the abdomen and pelvis August 20, 2021. TECHNIQUE: Following IV administration of 95 mL of Optiray, axial images of the abdomen and pelvis were obtained from the lung bases to the proximal femurs. Images were reviewed in the axial, sagittal, and coronal planes. IV contrast was administered without complication. Automated exposure control was utilized for the study. A dose lowering technique was utilized adhering to the principles of ALARA. CT DOSE: 464.21 mGy.cm FINDINGS: Lung bases are unremarkable. No pneumatosis, free air or portal venous gas is present. There are no hepatic lesions. Hepatic steatosis is noted. There is mild peripancreatic stranding and fluid. No pancreatic or biliary ductal dilatation is present. The previously described cystic abnormality within the pancreatic head has increased in size since CT of August 20, 2021. This now measures 4.2 x 3.7 cm. It previously measured 3.8 x 3.4 cm. This contains areas of increased attenuation which could reflect debris or enhancing component. There is mild mass effect upon the adjacent superior mesenteric vein. Note is made of thrombus at the portosplenic confluence which extends into the main portal vein. Thrombus extends into the right and left portal veins. Thrombus is nearly occlusive within the left portal vein. The adrenal glands, spleen and right kidney are normal. Subcentimeter lesion within lower pole the left kidney is too small to characterize. The appendix is normal. There is no evidence for a bowel obstruction. The caliber and wall thickness of small and large bowel are normal. Colonic diverticulosis is noted without evidence for acute di verticulitis. No suspicious lesions are identified within the visualized skeletal structures. IMPRESSION: 1. Mild peripancreatic stranding and fluid consistent with acute pancreatitis. Increase in size of the cystic abnormality within the pancreatic head, measuring 4.2 x 3.7 cm. Areas of increased attenuation within this lesion could reflect de bris or enhancing component. This remains indeterminate and could reflect a cystic neoplasm or intrapancreatic pseudocyst. Nonemergent pancreas protocol MRI is recommended. In addition, GI consultation for consideration for endoscopic sampling is recommended. 2. Portal venous thrombus within the main portal vein, portosplenic confluence and right and left portal veins. Thrombus nearly occlusive within the left portal vein. 3. No biliary or pancreatic ductal dilatation. 4. Hepatic steatosis. ACT 112: Negative or not required by law. Electronically signed by: Manjit Cali M.D. 10/01/2021 11:05 AM Chest X-Ray 10/01/21 09:06 XR chest 1V portable CLINICAL HISTORY: abd pain TECHNIQUE: Single frontal radiograph of the chest was obtained. Comparison: Comparison is made to chest one view 08/20/2021 FINDINGS: No lines and tubes are seen. The cardiomediastinal silhouette is normal. The lungs are clear. No evidence of pleural effusion or pneumothorax. IMPRESSION: No acute chest disease. ACT 112: Negative or not required by law. Electronically signed by: Gary Marie M.D. 10/01/2021 9:51 AM Cholangiopancreatography MRI 10/01/21 11:23 MR MRCP CLINICAL HISTORY: pancreatitic mass and acute pancreatitis COMPARISON: Comparison is made to CT abdomen pelvis 10/01/2021 TECHNIQUE: Multiplanar multisequence images were obtained of the abdomen with and without the administration of contrast. FINDINGS: Lower chest: No acute abnormality Liver: Unremarkable. Previously noted thrombus in the portal vein branches is not well seen on today's exam. Gallbladder and biliary tree: No calcified gallstones. Normal caliber wall. No intra- or extrahepatic biliary ductal dilation. Pancreas: A cystic lesion in the pancreatic head with neural nodules measures 35 mm, similar in appearance to prior CT. Stranding is noted about the pancreatic head. Spleen: Unremarkable. Adrenals: Unremarkable. Kidneys and ureters: Unremarkable. Bowel: Unremarkable. Lymph nodes Retroperitoneal: Subcentimeter Mesenteric: Unremarkable. Peritoneum: Normal Vessels: Unremarkable. Abdominal wall: Unremarkable. Bones: Degenerative changes in the visualized spine. IMPRESSION: 1. Redemonstration of large cystic lesion in the pancreatic head. No evidence of bile duct obstruction. 2. Fat stranding in the pancreatic head compatible with acute pancreatitis. 3. Previously noted thrombus in the portal vein is not well visualized on today's exam. ACT 112: Negative or not required by law. Electronically signed by: Gary Marie M.D. 10/01/2021 2:52 PM Venous Doppler Study 10/01/21 11:50 BILATERAL LOWER EXTREMITY VENOUS DOPPLER HISTORY: Acute pain and swelling of the lower legs r/o DVT COMPARISON STUDY: Duplex arterial study of same day, Doppler study 06/08/2020 FINDINGS: There is normal compressibility, flow, and augmentation within the bilateral lower extremity deep venous systems. Left inguinal chain lymph nodes measure up to 2.3 x 1.0 x 1.4 cm and 2.3 x 1.0 x 1.4 cm, likely physiologic. Long segment occlusive superficial venous thrombus is noted within the thigh which appears to extend for a length of greater than 5 cm. Thrombus does not josy ear to come into close proximity to the deep venous system. At least partially occlusive thrombus of the bilateral greater saphenous veins. IMPRESSION: 1. No DVT within the right or left lower extremity. 2. Superficial venous thrombus as above. ACT 112: Negative or not required by law. Electronically signed by: Kahlil Fisher M.D. 10/01/2021 4:00 PM Duplex Scan Lower Extremity Artery 10/01/21 12:06 US arterial duplex LE BI HISTORY: 41 years-old Male r/o PAD peripheral arterial disease. Acute bilateral lower extremity pain COMPARISON: Duplex venous Doppler study of same day TECHNIQUE: Multiple real-time sonographic images of the bilateral lower extremity arterial structures were obtained assessing grayscale appearance, color and spectral flow FINDINGS: Predominantly triphasic waveforms are noted throughout the lower extremities. No arterial occlusion or elevated peak systolic velocities to suggest high-grade stenosis. IMPRESSION: Unremarkable exam. ACT 112: Negative or not required by law. The above report was generated using voice recognition software. It may contain grammatical, syntax or spelling errors. Electronically signed by: Kahlil Fisher M.D. 10/01/2021 4:25 PM Ankle MRI 10/01/21 12:07 MR ankle RT wo con, MR foot RT w/o con CLINICAL HISTORY: 41 years-old Male with ?abscess/osteomyelitis. Chronic pain and swelling of the right foot and ankle. Clinical concern prostate myelitis. COMPARISON: None. TECHNIQUE: Multiplanar, multi sequence MRI of the right foot and ankle was performed without contrast. FINDINGS: ANKLE: Motion degraded exam. The visualized tendons and ligaments of the ankle appear intact. Moderate subcutaneous edema of the ankle. No focal fluid collection. Normal bone marrow signal without acute fracture, dislocation, suspicious bone lesion or osseous erosion. No osteochondral defect or significant osteoarthritis. FOOT: Motion degraded exam. The visualized tendons and ligaments of the foot appear intact. Notably the interosseous band of the Lisfranc ligament is identified and appears normal. Moderate subcutaneous with deep tissue edema of the foot. Fluid collection. Normal bone marrow signal without acute fracture, dislocation, suspicious bone lesion or osseous erosion. No significant osteoarthritis. IMPRESSION: 1. Moderate nonspecific subcutaneous and deep tissue edema of the foot and ankle. Cellulitis, venous stasis or lymphedema are differential considerations. 2. No fluid collection to suggest abscess. 3. No acute fracture or evidence of osteomyelitis. ACT 112: Negative or not required by law. The above report was generated using voice recognition software. It may contain grammatical, syntax or spelling errors. Electronically signed by: Kahlil Fisher M.D. 10/01/2021 5:31 PM Foot MRI 10/01/21 12:07 MR ankle RT wo con, MR foot RT w/o con CLINICAL HISTORY: 41 years-old Male with ?abscess/osteomyelitis. Chronic pain and swelling of the right foot and ankle. Clinical concern prostate myelitis. COMPARISON: None. TECHNIQUE: Multiplanar, multi sequence MRI of the right foot and ankle was performed without contrast. FINDINGS: ANKLE: Motion degraded exam. The visualized tendons and ligaments of the ankle appear intact. Moderate subcutaneous edema of the ankle. No focal fluid collection. Normal bone marrow signal without acute fracture, dislocation, suspicious bone lesion or osseous erosion. No osteochondral defect or significant osteoarthritis. FOOT: Motion degraded exam. The visualized tendons and ligaments of the foot appear intact. Notably the interosseous band of the Lisfranc ligament is identified and appears normal. Moderate subcutaneous with deep tissue edema of the foot. Fluid collection. Normal bone marrow signal without acute fracture, dislocation, suspicious bone lesion or osseous erosion. No significant osteoarthritis. IMPRESSION: 1. Moderate nonspecific subcutaneous and deep tissue edema of the foot and ankle. Cellulitis, venous stasis or lymphedema are differential considerations. 2. No fluid collection to suggest abscess. 3. No acute fracture or evidence of osteomyelitis. ACT 112: Negative or not required by law. The above report was generated using voice recognition software. It may contain grammatical, syntax or spelling errors. Electronically signed by: Kahlil Fisher M.D. 10/01/2021 5:31 PM Discharge Plan Visit Data Chief Complaint: Respiratory Problems Stated Complaint: ABD PAIN & CHEST PAIN/SOB ED Provider: Cuco Mckeon Discharge Problem: Acute pancreatitis, Tachycardia, Portal vein thrombosis, Acute dehydration, Hypomagnesemia, Coagulopathy Patient Disposition: Admitted As Inpatient Condition: Serious Discharge Instructions Interventions: ED Discharge Assessment Last Done: 10/01/21 16:51
[2021-10-01 09:44] LABS: Basophils # (auto) 0.04 K/uL (0-0.2); Basophils % (auto) 0.3 %; Eosinophils # (auto) 1.08 K/uL (0-0.5); Eosinophils % (auto) 9.2 %; Hematocrit (blood only) 36.4 % (42-52); Immature Granulocytes # (auto) 0.02 K/uL (0.00-0.02); Immature Granulocytes % (auto) 0.2 %; Lymphocytes # (auto) 1.39 K/uL (1.2-3.4); Lymphocytes % (auto) 11.8 %; Mean Corpuscular Volume 109.3 fL (80-100); Mean Platelet Volume 8.5 fL (7.4-10.4); Monocytes # (auto) 1.16 K/uL (0.11-0.59); Monocytes % (auto) 9.8 %; Neutrophils # (auto) 8.09 K/uL (1.4-6.5); Neutrophils % (auto) 68.7 %; Platelet Count 288 K/uL (130-400); RDW Standard Deviation 59.4 fL (36.4-46.3); Red Blood Count 3.33 M/uL (4.7-6.1); White Blood Count 11.78 K/uL (4.8-10.8)
--- NOTE | 2021-10-01 09:52 | XRay Report ---
XR chest 1V portable CLINICAL HISTORY: abd pain TECHNIQUE: Single frontal radiograph of the chest was obtained. Comparison: Comparison is made to chest one view 08/20/2021 FINDINGS: No lines and tubes are seen. The cardiomediastinal silhouette is normal. The lungs are clear. No evid ence of pleural effusion or pneumothorax. IMPRESSION: No acute chest disease. ACT 112: Negative or not required by law. Electronically signed by: Gary Marie M.D. 10/01/2021 9:51 AM
[2021-10-01 10:03] LABS: Alanine Aminotransferase 31 (12-78); Albumin Level 2.7 gm/dl (3.4-5.0); Aspartate Aminotransferase 45 U/L (15-37); BUN Creatinine Ratio 9.4 (10-20); Blood Urea Nitrogen 15 mg/dl (7-18); Calcium 8.4 mg/dl (8.5-10.1); Carbon Dioxide 24 mmol/L (21-32); Chloride 108 mmol/L (98-107); Creatinine Clr Calc Pharmacy 75.4 ml/min; Est GFR (African American) 62.6 ml/min; Glucose 106 mg/dl (70-99); Magnesium 1.4 mg/dl (1.8-2.4); Potassium 3.5 mmol/L (3.5-5.1); Sodium 140 mmol/L (136-145)
[2021-10-01 10:27] LABS: Albumin Globulin Ratio 0.5 (0.9-2); Alkaline Phosphatase 193 U/L (45-117); Bilirubin,Total 1.1 mg/dl (0.2-1); Globulin 5.1 gm/dl (2.5-4.0); Total Protein 7.8 gm/dl (6.4-8.2); Troponin I < 0.015 ng/ml (0-0.045)
[2021-10-01] MEDS ORDERED: MAGNESIUM SULFATE / D5W 1 GM/100 ML BAG IV STA (10:29)
[2021-10-01] MEDS ORDERED: OPTIRAY 320 100ml IV ONE (10:43)
--- NOTE | 2021-10-01 11:06 | CT Scan Report ---
CT OF THE ABDOMEN AND PELVIS WITH CONTRAST CLINICAL HISTORY: Epigastric pain. History of pancreatitis. COMPARISON STUDY: CT of the abdomen and pelvis August 20, 2021. TECHNIQUE: Following IV administration of 95 mL of Optiray, axial images of the abdomen and pelvis we re obtained from the lung bases to the proximal femurs. Images were reviewed in the axial, sagittal, and coronal planes. IV contrast was administered without complication. Automated exposure control wa s utilized for the study. A dose lowering technique was utilized adhering to the principles of ALARA . CT DOSE: 464.21 mGy.cm FINDINGS: Lung bases are unremarkable. No pneumatosis, free air or portal venous gas is present. Ther e are no hepatic lesions. Hepatic steatosis is noted. There is mild peripancreatic stranding and flui d. No pancreatic or biliary ductal dilatation is present. The previously described cystic abnormality within the pancreatic head has increased in size since CT of August 20, 2021. This now measures 4.2 x 3.7 cm. It previously measured 3.8 x 3.4 cm. This contains areas of increased attenuation which co uld reflect debris or enhancing component. There is mild mass effect upon the adjacent superior mesen teric vein. Note is made of thrombus at the portosplenic confluence which extends into the main farheen l vein. Thrombus extends into the right and left portal veins. Thrombus is nearly occlusive within th e left portal vein. The adrenal glands, spleen and right kidney are normal. Subcentimeter lesion with in lower pole the left kidney is too small to characterize. The appendix is normal. There is no evide nce for a bowel obstruction. The caliber and wall thickness of small and large bowel are normal. Barrow lion diverticulosis is noted without evidence for acute diverticulitis. No suspicious lesions are iden tified within the visualized skeletal structures. IMPRESSION: 1. Mild peripancreatic stranding and fluid consistent with acute pancreatitis. Increase in size of th e cystic abnormality within the pancreatic head, measuring 4.2 x 3.7 cm. Areas of increased attenuati on within this lesion could reflect debris or enhancing component. This remains indeterminate and cou ld reflect a cystic neoplasm or intrapancreatic pseudocyst. Nonemergent pancreas protocol MRI is pearl mmended. In addition, GI consultation for consideration for endoscopic sampling is recommended. 2. Portal venous thrombus within the main portal vein, portosplenic confluence and right and left por solis veins. Thrombus nearly occlusive within the left portal vein. 3. No biliary or pancreatic ductal dilatation. 4. Hepatic steatosis. ACT 112: Negative or not required by law. Electronically signed by: Manjit Cali M.D. 10/01/2021 11:05 AM
[2021-10-01 11:19] LABS: Lipase 30282 U/L (73-393)
[2021-10-01] MEDS ORDERED: Heparin IV Adult Wt-Based Standard WITH Bolus Protocol IV STA (11:48)
--- NOTE | 2021-10-01 11:48 | History & Physical Report ---
Date of Service October 01, 2021 Assessment & Plan (1) Acute pancreatitis: Plan: Abdominal pain, elevated lipase and peripancreatic changes on CT Most likely secondary to alcohol use although pancreatic mass and duration also concerning for obstruction - MRCP I suspect he underestimates his alcohol use given elevated MCV NPO, Ondansetron for nausea, Dilaudid for pain, IV LR Consult GI due to pancreatic mass (2) Portal vein thrombosis: Plan: Developed despite taking Eliquis. Hypercoagulable workup sent. PTINR, PTT pending. IV heparin standard bolus and drip (3) Acute superficial venous thrombosis of right lower extremity: Plan: IV hepatin as above Hypercoagulability despite Eliquis use concerning for cancer outside any known autoimmune condition US b/l LE venous doppler to assess for DVT (4) Shortness of breath: Plan: Concerning for pulmonary embolus given tachycardia and PVT as above. Treatment however would not change and given already had IV contrast today will plan for CT angiogram tomorrow morning pending US venous doppler. (5) Right foot pain: Plan: Recent non-healing ulcer / abscess and tenosynovitis of left foot - dressing not removed from this foot, will defer this to orthpedics Now concerning fluctuance / ecchymosis of left ankle/foot. Does not appear to be cellulitic however he reports this is how his abscess started in his left foot. Will hold off antibiotics currently but take blood cultures x2. Right Achilles tenosynovitis on exam with concern for hematoma around this especially since we are starting on IV heparin however benefit of this outweighs risk at this time. MRI right foot and ankle wo contrast to assess for fluid collection and osteomyelitis Consult orthopedics I see no recent arterial duplex to assess his blood supply to his feet therefore will also get this. (6) Alcohol use disorder: Plan: Discussed need for cessation (7) Chest pain, exertional: Plan: As above for shortness of breath Dobutamine stress organized as outpatient Troponin negative on admission Consider inpatient stress echo if recurs Plan: VTE Prophylaxis - heparin IV Diet - NPO Disposition - admit to med/tele Admission and Anticipated Discharge Date Admission Date: October 01, 2021 History of Present Illness Chief Complaint: Abdominal pain Primary Care Provider: Jaja Cali MD Anthony Sharif is a 41 year old male who presents to the ER with epigastric pain, radiating into back. He reports this has been progressively getting worse over the last 2-3 weeks, but significantly worse today. Severity 5-6/10 at worse, currently 2-3/10 after morphine given in the ER. Associated nausea, vomiting and diarrhea. He reports never having pancreatitis previously. However he was admitted here from August 20-2020 due to left foot ulcer and abscess with tenosynovitis requiring I&D and on that occasion was noted to have an elevated lipiase and CT abdomen showing peripancreatic stranding. Per notes at the time he was not having any symptoms relating to this. He does drink excessive alcohol, especially last year where he was drinking 3-6 shots of vodka every day. More recently 3-4 days a week he drinks 3-6 shots of vodka. He denies any tobacco or illicit drug use. He also reports associated shortness of breath but reports this is more chronic ever since he had COVID last year. He feels much weaker and short of breath with his current illness. In addition he reports ecchymosis and swelling of his right foot that has occurred over the last 2 days. He denies any trauma and is particularly concerned about this since he feels this is how the infection started in his left foot. He denies any fever or chills. He has also noted a superficial thrombosis in his right thigh despite taking Eliquis. In the ER CT A/P was concerning for portal vein thrombosis. The patient takes Eliquis chronically due to history of DVT for the last 2 years. He reports missing a dose this morning due to his acute illness however is otherwise compliant. CT also showed worsening pancreatitis. Family history of brother had testicular cancer, Mother with breast cancer. Allergies Allergy/AdvReac Type Severity Reaction Status Date / Time doxycycline Allergy Severe Joint Verified 10/01/21 09:46 Pain, Shortness of breath cephalexin Allergy Mild Rash Verified 10/01/21 09:46 Cipro Allergy Mild throat Verified 06/09/18 08:28 swells ciprofloxacin Allergy Mild throat Verified 10/01/21 09:46 swells Home Medications Medication Instructions Recorded Confirmed Type apixaban 5 mg tablet 5 mg PO BID #180 tab 11/07/20 10/01/21 Rx allopurinol 100 mg tablet 100 mg PO DAILY #90 tab 08/26/21 10/01/21 Rx 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 ECHO Secondary hyperparathyroidism of renal origin Staphylococcus aureus infection Superficial thrombosis of leg PER RECORDS UTI (urinary tract infection) Venous ulcer RECURRENT VENOUS ULCERATION (REASON FOR PROCEDURE) Vitamin D deficiency Surgical History Hx of biopsy LEFT KIDNEY S/P vascular surgery LLE 2/2 VENOUS INSUFFICIENCY Family History Mother FHx: lung cancer Hypertension Breast cancer Brother FHx: testicular cancer Hypertension Father Hypertension Unknown Myocardial infarction Social History Smoking Status: Never smoker Second Hand Exposure: No; Do You Dip or Chew Tobacco: No; Tobacco Cessation Education Requested by Patient: No Hx Alcohol Use: Yes Alcohol type: beer, wine and hard liquor Alcohol Intake Frequency Comment: daily Hx Substance Use: No Preferred Language: Malagasy Communication Ability: Effective Visual Impairment: No 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 Required: No Beliefs That Will Affect Care: None marital status: Single Current Living Situation: Alone Current Living Situation Comment: [facility] Feels Safe at Home: Yes Safety Concerns: Feels Safe At This Time Assistive Devices: Walker Review of Systems Review of Systems: All systems reviewed & are unremarkable except as noted in HPI & below Physical Exam Constitutional: WD/WN, vitals as above no acute distress Eyes: PERRL, conjunctivae normal, anicteric sclerae ENMT: external ear and nose normal, oropharynx normal Neck: trachea midline, no thyromegaly Respiratory: normal respiratory effort, lungs clear to auscultation Cardiovascular: Rate/Rhythm: regular rhythm and + tachycardic Heart Sounds: no murmur Extremities: normal capillary refill and + pedal edema (trace right ankle); no calf tenderness Gastrointestinal (Abdomen): Percussion/Palpation: + abdomen tender (epigastric) and abdomen soft; no guarding and abdomen not rigid Skin: Superficial thrombosis felt in right thigh Ecchymosis around right Achilles and dorsal aspect of distal right foot Bandage on left foot not removed but no erythema spreading beyond bandage Neurologic: moves all extremities and awake; not confused Psychiatric: A+Ox3, euthymic affect Results & Data Results & Data ([facility]) Vital Signs (Past 12 Hours) Vital Signs Temp Pulse Resp BP Pulse Ox 10/01/21 08:49 36.7 C 124 H 18 120/90 100 Laboratory Results Abnormal lab results 10/01/21 10/01/21 10/01/21 Range/Units 09:31 09:31 12:17 WBC 11.78 H (4.8-10.8) K/uL RBC 3.33 L (4.7-6.1) M/uL Hgb 12.0 L (14.0-18.0) g/dL Hct 36.4 L (42-52) % MCV 109.3 H (80-100) fL MCH 36.0 H (25-34) pg RDW Std Deviation 59.4 H (36.4-46.3) fL RDW Coeff of Machelle 15.0 H (11.5-14.5) % Neut # (Auto) 8.09 H (1.4-6.5) K/uL Spencer # (Auto) 1.16 H (0.11-0.59) K/uL Eos # (Auto) 1.08 H (0-0.5) K/uL PT (9.0-12.0) Seconds INR (0.9-1.1) APTT (21.0-31.0) Seconds Chloride 108 H (98-107) mmol/L Creatinine 1.55 H (0.6-1.4) mg/dl BUN/Creatinine Ratio 9.4 L (10-20) Glucose 106 H (70-99) mg/dl Calcium 8.4 L (8.5-10.1) mg/dl Magnesium 1.4 L (1.8-2.4) mg/dl Total Bilirubin 1.1 H (0.2-1) mg/dl AST 45 H (15-37) U/L Alkaline Phosphatase 193 H (45-117) U/L Total Creatine Kinase 31 L (39-308) U/L C-Reactive Protein 9.15 H (0-0.29) mg/dl Albumin 2.7 L (3.4-5.0) gm/dl Globulin 5.1 H (2.5-4.0) gm/dl Albumin/Globulin Ratio 0.5 L (0.9-2) Lipase 91838 H (73-393) U/L 10/01/21 Range/Units 12:17 WBC (4.8-10.8) K/uL RBC (4.7-6.1) M/uL Hgb (14.0-18.0) g/dL Hct (42-52) % MCV (80-100) fL MCH (25-34) pg RDW Std Deviation (36.4-46.3) fL RDW Coeff of Machelle (11.5-14.5) % Neut # (Auto) (1.4-6.5) K/uL Spencer # (Auto) (0.11-0.59) K/uL Eos # (Auto) (0-0.5) K/uL PT > 90.0 H (9.0-12.0) Seconds INR > 10.7 H* (0.9-1.1) APTT 33.3 H (21.0-31.0) Seconds Chloride (98-107) mmol/L Creatinine (0.6-1.4) mg/dl BUN/Creatinine Ratio (10-20) Glucose (70-99) mg/dl Calcium (8.5-10.1) mg/dl Magnesium (1.8-2.4) mg/dl Total Bilirubin (0.2-1) mg/dl AST (15-37) U/L Alkaline Phosphatase (45-117) U/L Total Creatine Kinase (39-308) U/L C-Reactive Protein (0-0.29) mg/dl Albumin (3.4-5.0) gm/dl Globulin (2.5-4.0) gm/dl Albumin/Globulin Ratio (0.9-2) Lipase (73-393) U/L Diagnostic Findings XR chest 1V portable CLINICAL HISTORY: abd pain TECHNIQUE: Single frontal radiograph of the chest was obtained. Comparison: Comparison is made to chest one view 08/20/2021 FINDINGS: No lines and tubes are seen. The cardiomediastinal silhouette is normal. The lungs are clear. No evidence of pleural effusion or pneumothorax. IMPRESSION: No acute chest disease. CT OF THE ABDOMEN AND PELVIS WITH CONTRAST CLINICAL HISTORY: Epigastric pain. History of pancreatitis. COMPARISON STUDY: CT of the abdomen and pelvis August 20, 2021. TECHNIQUE: Following IV administration of 95 mL of Optiray, axial images of the abdomen and pelvis were obtained from the lung bases to the proximal femurs. Images were reviewed in the axial, sagittal, and coronal planes. IV contrast was administered without complication. Automated exposure control was utilized for the study. A dose lowering technique was utilized adhering to the principles of ALARA. CT DOSE: 464.21 mGy.cm FINDINGS: Lung bases are unremarkable. No pneumatosis, free air or portal venous gas is present. There are no hepatic lesions. Hepatic steatosis is noted. There is mild peripancreatic stranding and fluid. No pancreatic or biliary ductal dilatation is present. The previously described cystic abnormality within the pancreatic head has increased in size since CT of August 20, 2021. This now measures 4.2 x 3.7 cm. It previously measured 3.8 x 3.4 cm. This contains areas of increased attenuation which could reflect debris or enhancing component. There is mild mass effect upon the adjacent superior mesenteric vein. Note is made of thrombus at the portosplenic confluence which extends into the main portal vein. Thrombus extends into the right and left portal veins. Thrombus is nearly occlusive within the left portal vein. The adrenal glands, spleen and right kidney are normal. Subcentimeter lesion within lower pole the left kidney is too small to characterize. The appendix is normal. There is no evidence for a bowel obstruction. The caliber and wall thickness of small and large bowel are normal. Colonic diverticulosis is noted without evidence for acute diverticulitis. No suspicious lesions are identified within the visualized skeletal structures. IMPRESSION: 1. Mild peripancreatic stranding and fluid consistent with acute pancreatitis. Increase in size of the cystic abnormality within the pancreatic head, measuring 4.2 x 3.7 cm. Areas of increased attenuation within this lesion could reflect debris or enhancing component. This remains indeterminate and could reflect a cystic neoplasm or intrapancreatic pseudocyst. Nonemergent pancreas protocol MRI is recommended. In addition, GI consultation for consideration for endoscopic sampling is recommended. 2. Portal venous thrombus within the main portal vein, portosplenic confluence and right and left portal veins. Thrombus nearly occlusive within the left portal vein. 3. No biliary or pancreatic ductal dilatation. 4. Hepatic steatosis. Medications Administered ER Medications Given: Ondansetron 4mg IV Promethazine 6.25mg IV NSS 2L bolus magnesium sulphate 1g IV ECG Indication: abdominal pain Rate (beats per minute): 95 Rhythm: normal sinus Findings: no acute ischemic change Comparison ECG Date: from (Aug 20, 2021) Change: no significant change Code Status & VTE Plan Code Status Full VTE Prophylaxis Plan VTE Prophylaxis will be ordered: Yes PG Care Time/CCT Total # of Minutes Spent Total Time Spent with Patient: Total time spent is greater than 50% in coordination of care (as documented) at patient's floor/unit and/or counseling patient: Coding Level of Care Code 20957 Initial Inpt Care Lvl 3 Diagnoses Portal vein thrombosis I81 Acute pancreatitis K85.90 Acute superficial venous thrombosis of right lower extremity I82.811 Shortness of breath R06.02 Right foot pain M79.671 Alcohol use disorder Chest pain, exertional R07.9
[2021-10-01] MEDS ORDERED: HEPARIN SOD (PORCINE) 1000 UNIT/ML IV ONE (12:04)
[2021-10-01] MEDS ORDERED: HEPARIN SODIUM/DEXTROSE 25,000 UNITS/500 ML BAG IV SCH (12:15)
[2021-10-01 13:05] LABS: Partial Thromboplastin Ratio 1.3; Partial Thromboplastin Time 33.3 Seconds (21.0-31.0)
[2021-10-01 13:16] LABS: INR > 10.7 (0.9-1.1); Prothrombin Time > 90.0 Seconds (9.0-12.0)
[2021-10-01 13:24] LABS: C Reactive Protein 9.15 mg/dl (0-0.29)
[2021-10-01] MEDS ORDERED: PHYTONADIONE 10 MG in SODIUM CHLORIDE 0.9% 50 ML IV ONE (13:30)
[2021-10-01] MEDS: LACTATED RINGER'S 1,000 ML IV SCH ×3 (14:10→23:19)
--- NOTE | 2021-10-01 14:53 | Magnetic Resonance Report ---
MR MRCP CLINICAL HISTORY: pancreatitic mass and acute pancreatitis COMPARISON: Comparison is made to CT abdomen pelvis 10/01/2021 TECHNIQUE: Multiplanar multisequence images were obtained of the abdomen with and without the adminis tration of contrast. FINDINGS: Lower chest: No acute abnormality Liver: Unremarkable. Previously noted thrombus in the portal vein branches is not well seen on today' s exam. Gallbladder and biliary tree: No calcified gallstones. Normal caliber wall. No intra- or extrahepatic biliary ductal dilation. Pancreas: A cystic lesion in the pancreatic head with neural nodules measures 35 mm, similar in appea kendal to prior CT. Stranding is noted about the pancreatic head. Spleen: Unremarkable. Adrenals: Unremarkable. Kidneys and ureters: Unremarkable. Bowel: Unremarkable. Lymph nodes Retroperitoneal: Subcentimeter Mesenteric: Unremarkable. Peritoneum: Normal Vessels: Unremarkable. Abdominal wall: Unremarkable. Bones: Degenerative changes in the visualized spine. IMPRESSION: 1. Redemonstration of large cystic lesion in the pancreatic head. No evidence of bile duct obstructi on. 2. Fat stranding in the pancreatic head compatible with acute pancreatitis. 3. Previously noted thrombus in the portal vein is not well visualized on today's exam. ACT 112: Negative or not required by law. Electronically signed by: Gary Marie M.D. 10/01/2021 2:52 PM
[2021-10-01] MEDS ORDERED: ACETAMINOPHEN 1,000 MG/100 ML VIAL IV PRN (15:57)
[2021-10-01] MEDS ORDERED: HYDROmorphone INJ 0.5 MG/0.5 ML SYR IV PRN (15:57)
--- NOTE | 2021-10-01 16:00 | Electrocardiogram Report ---
Test Reason : Blood Pressure : / mmHG Vent. Rate : 095 BPM Atrial Rate : 095 BPM P-R Int : 208 ms QRS Dur : 080 ms QT Int : 362 ms P-R-T Axes : 047 -16 014 degrees QTc Int : 454 ms Poor data quality, interpretation may be adversely affected Normal sinus rhythm Moderate voltage criteria for LVH, may be normal variant Borderline ECG When compared with ECG of 20-AUG-2021 18:04, No significant change was found Confirmed by Neil Browne ([id number]) on 10/01/2021 3:59:34 PM Referred By: REFERRED SELF Confirmed By:Neil Browne
--- NOTE | 2021-10-01 16:02 | Ultrasound Report ---
BILATERAL LOWER EXTREMITY VENOUS DOPPLER HISTORY: Acute pain and swelling of the lower legs r/o DVT COMPARISON STUDY: Duplex arterial study of same day, Doppler study 06/08/2020 FINDINGS: There is normal compressibility, flow, and augmentation within the bilateral lower extremit y deep venous systems. Left inguinal chain lymph nodes measure up to 2.3 x 1.0 x 1.4 cm and 2.3 x 1.0 x 1.4 cm, likely physiologic. Long segment occlusive superficial venous thrombus is noted within the thigh which appears to extend for a length of greater than 5 cm. Thrombus does not appear to come into close proximity to the deep venous system. At least partially occlusive thrombus of the bilateral greater saphenous veins. IMPRESSION: 1. No DVT within the right or left lower extremity. 2. Superficial venous thrombus as above. ACT 112: Negative or not required by law. Electronically signed by: Kahlil Fisher M.D. 10/01/2021 4:00 PM
[2021-10-01 16:10] LABS: Folate (Folic Acid) 6.7 ng/ml (>5.38)
[2021-10-01 16:15] LABS: Fibrinogen 164 mg/dl (184-400); Partial Thromboplastin Ratio 1.2
--- NOTE | 2021-10-01 16:27 | Ultrasound Report ---
US arterial duplex LE BI HISTORY: 41 years-old Male r/o PAD peripheral arterial disease. Acute bilateral lower extremity pain COMPARISON: Duplex venous Doppler study of same day TECHNIQUE: Multiple real-time sonographic images of the bilateral lower extremity arterial structures were obtained assessing grayscale appearance, color and spectral flow FINDINGS: Predominantly triphasic waveforms are noted throughout the lower extremities. No arterial occlusion o r elevated peak systolic velocities to suggest high-grade stenosis. IMPRESSION: Unremarkable exam. ACT 112: Negative or not required by law. The above report was generated using voice recognition software. It may contain grammatical, syntax o r spelling errors. Electronically signed by: Kahlil Fisher M.D. 10/01/2021 4:25 PM
--- NOTE | 2021-10-01 17:33 | Magnetic Resonance Report ---
MR ankle RT wo con, MR foot RT w/o con CLINICAL HISTORY: 41 years-old Male with ?abscess/osteomyelitis. Chronic pain and swelling of the ri ght foot and ankle. Clinical concern prostate myelitis. COMPARISON: None. TECHNIQUE: Multiplanar, multi sequence MRI of the right foot and ankle was performed without contrast . FINDINGS: ANKLE: Motion degraded exam. The visualized tendons and ligaments of the ankle appear intact. Moderate subcu taneous edema of the ankle. No focal fluid collection. Normal bone marrow signal without acute fractu re, dislocation, suspicious bone lesion or osseous erosion. No osteochondral defect or significant os teoarthritis. FOOT: Motion degraded exam. The visualized tendons and ligaments of the foot appear intact. Notably the int erosseous band of the Lisfranc ligament is identified and appears normal. Moderate subcutaneous with deep tissue edema of the foot. Fluid collection. Normal bone marrow signal without acute fracture, di slocation, suspicious bone lesion or osseous erosion. No significant osteoarthritis. IMPRESSION: 1. Moderate nonspecific subcutaneous and deep tissue edema of the foot and ankle. Cellulitis, venous stasis or lymphedema are differential considerations. 2. No fluid collection to suggest abscess. 3. No acute fracture or evidence of osteomyelitis. ACT 112: Negative or not required by law. The above report was generated using voice recognition software. It may contain grammatical, syntax o r spelling errors. Electronically signed by: Kahlil Fisher M.D. 10/01/2021 5:31 PM
[2021-10-01 18:04] LABS: Prothrombin Time > 90.0 Seconds (9.0-12.0)
[2021-10-01 18:07] LABS: INR > 10.7 (0.9-1.1)
[2021-10-01] MEDS ORDERED: Heparin IV Adult Wt-Based Standard *NO* Bolus Protocol IV SCH (19:26)
[2021-10-01] MEDS ORDERED: ONDANSETRON INJ 2 MG/ML 2 ML VIAL IV PRN (21:03)
[2021-10-01] MEDS: HEPARIN SODIUM/DEXTROSE 25,000 UNITS/500 ML BAG IV SCH (21:08)
[2021-10-02 03:51] LABS: Basophils # (auto) 0.03 K/uL (0-0.2); Basophils % (auto) 0.3 %; Eosinophils # (auto) 1.05 K/uL (0-0.5); Eosinophils % (auto) 10.6 %; Hematocrit (blood only) 32.2 % (42-52); Hemoglobin 10.4 g/dL (14.0-18.0); Immature Granulocytes # (auto) 0.02 K/uL (0.00-0.02); Immature Granulocytes % (auto) 0.2 %; Lymphocytes # (auto) 1.82 K/uL (1.2-3.4); Lymphocytes % (auto) 18.4 %; Mean Corpuscular Hemoglobin 36.1 pg (25-34); Mean Corpuscular Hgb Conc 32.3 g/dL (32-36); Mean Corpuscular Volume 111.8 fL (80-100); Mean Platelet Volume 8.2 fL (7.4-10.4); Monocytes # (auto) 0.92 K/uL (0.11-0.59); Monocytes % (auto) 9.3 %; Neutrophils # (auto) 6.07 K/uL (1.4-6.5); Neutrophils % (auto) 61.2 %; Platelet Count 251 K/uL (130-400); RDW Coefficient of Variation 15.2 % (11.5-14.5); RDW Standard Deviation 61.8 fL (36.4-46.3); Red Blood Count 2.88 M/uL (4.7-6.1); White Blood Count 9.91 K/uL (4.8-10.8)
[2021-10-02 04:10] LABS: Albumin Level 2.2 gm/dl (3.4-5.0); BUN Creatinine Ratio 10.1 (10-20); Calcium 8.3 mg/dl (8.5-10.1); Creatinine Clr Calc Pharmacy 99.1 ml/min; Est GFR (African American) 87.1 ml/min; Est GFR (Non-African American) 75.1 ml/min; Potassium 3.4 mmol/L (3.5-5.1)
[2021-10-02 04:12] LABS: Macrocytosis Present; Partial Thromboplastin Ratio 2.3
[2021-10-02] MEDS: LACTATED RINGER'S 1,000 ML IV SCH ×5 (04:19→23:02)
[2021-10-02 04:48] LABS: Partial Thromboplastin Time 60.2 Seconds (21.0-31.0)
[2021-10-02 04:59] LABS: Prothrombin Time > 90.0 Seconds (9.0-12.0)
[2021-10-02 05:01] LABS: Albumin Globulin Ratio 0.5 (0.9-2); Globulin 4.3 gm/dl (2.5-4.0); INR > 10.7 (0.9-1.1); Total Protein 6.5 gm/dl (6.4-8.2)
--- NOTE | 2021-10-02 07:03 | Hospitalist Progress Note ---
Date of Service October 02, 2021 Assessment & Plan (1) Acute pancreatitis: Plan: Anthony is a 41-year-old male with a history of bilateral DVT on Eliquis (3-5 years ago), chronic LE venous insufficiency and ulcers - follows with Dr. Goss and [facility], recent LEFT foot ulcer/abscess/tenosynovitis s/p I&D in 07/2021, previous Pseudomonal cellulitis, alcohol abuse, CKD4, COVID-19 infection in 09/2020, MVP with regurgitation, and >1 year exertionally-related chest pain who presented primarily for epigastric abdominal pain x 1-2 days, subsequently found to have serologic and radiologic evidence of acute pancreatitis, alongside pancreatic lesion/mass and portal vein thrombosis, on abdominal imaging. During this initial work-up, he was also found to have significantly elevated INR (>10) and RLE swelling. No signs of active bleeding at this time. SUBACUTE PANCREATITIS - In the context of abdominal pain with significant recent alcohol use and pancreatic mass, and imaging in 07/2021 consistent with (asymptomatic) pancreatitis and elevated lipase - Work-up as follows: * CT-A/P, MRCP demonstrating with changes c/w acute pancreatitis * Lipase on admission ~30,000 ; Hct on admission 36.2 * Triglycerides normal * MRCP: Large pancreatic head cyst, non-obstructive. Portal VT not well visualized. - Suspect secondary to alcohol use in case, especially with macrocytosis - mIVF: LR @ 200cc/hr - Advance diet when appropriate and as tolerated - Zofran p.r.n. for nausea, Dilaudid p.r.n. for pain - GI consult ([facility] [place]) for Pancreatic Mass, as below PORTAL VEIN THROMBOSIS (PVT) - New. Formed despite patient being chronically on Eliquis for previous DVTs (assuming appropriate compliance). Of note, has h/o clots forming in the past while on therapy, too. Formed despite significantly elevated INR with normal PTT. - CT-A/P demonstrating "portal venous thrombus within the main portal vein, portosplenic confluence and R/L portal vv" - Initiate heparin gtt - admitting provider spoke with Hematology on admission, aware - Hematology consultation, hypercoagulability work-up -- pending - Hold Eliquis ELEVATED INR -- >10 on arrival, in setting of apparent hypercoagulable state - In the setting of PVT, as above, and superficial venous thrombosis; noted history of DVT noted in past - Patient noted to have significantly elevated INR (>10) on arrival with relat ively normal LFTs - On arrival, aPTT just slightly elevated (33.3). Platelets normal (250). LFTs largely normal. FDP elevated, fibrinogen normal. - Etiology unclear: Alcohol history noted, but no overt signs of cirrhosis/liver failure. DIC also considered, however platelets normal. Given near-normal aPTT with significantly elevated INR on arrival and previous clots and no improvement s/p Vitamin K x 10mg -- ?pathology with extrinsic coagulation pathway, induced (e.g., paraneoplastic) vs. intrinsic (genetic). - Hematology consultation, appreciate insight and recommendations: pending hypercoagulability work-up - As INR does not necessarily reflect anticoagulation effect, and with active thrombosis, continue with heparin gtt for now - Monitor for bleeding, CBC qday RLE SUPERFICIAL VENOUS THROMBOSIS - On admission, discovered to have notable RLE swelling and venous stasis changes - Venous Dopplers revealing of bilateral superficial venous thromboses without evidence of DVTs - In setting of PVT, elevated INR above, concerning for hypercoagulable state - Work-up as above, see elevated INR problem PANCREATIC LESION - Noted to have 4.2 x 3.7cm pancreatic head mass with cystic appearance; ?cystic neoplasm vs. intrapancreatic pseudocyst - In setting of the above issues, including pancreatitis - GI Consulted: Appreciate insight on need for EUS RIGHT FOOT PAIN - Patient with recent history of LEFT tenosynovitis and ulcer/abscess, recently s/p I&D in 07/2021 - Notable RLE swelling and venous stasis / ecchymotic changes x 2d appreciated on exam -- no e/o abscess/ulcer - MRI Foot/Ankle performed: Subcutaneous deep tissue edema, no abscess or evidence of osteomyelitis - Suspect likely venous stasis/lymphedema related rather than cellulitis at this time - Orthopedics consulted on admission INTERMITTENT CHEST PAIN - Reported history of intermittent exertionally-related CP x 1 year and new baseline shortness of breath - Follows with cardiology as outpatient (note from 09/27 reviewed), primarily for MVP w/ regurgitation --> notes indicate plans to perform dobutamine stress test - No complaints/CP at present. ECG, troponin normal since admission. - Monitor. Consider inpatient stress test p.r.n. CHRONIC SHORTNESS OF BREATH - Reported >1 year history of shortness of breath, patient reports since COVID- 19 infection in 09/2020 - Follows with cardiology -- with outpatient plans to perform dobutamine stress, as above - Possibly ?PEs in setting of hypercoagulability -- though chronicity >1 year is noted. +tachycardia. No O2 req. - Monitor. Consider TTE while here. ALCOHOL USE DISORDER - Patient reports drinking 3-4x mixed drinks (with 3-4 shots of Vodka) q.o.d. [approx. 52 drinks/week] x months - Last drink apparently >5 days ago, per patient - No signs, symptoms of withdrawal at present. If concerns for more recent use, initiate AWSS. - Encouraged alcohol cessation. Would likely benefit from naltrexone as outpatient pending goal setting. CKD 3B/4 - Follows with Dr. Muñoz as outpatient w/ [facility] [place] [facility] - Suspected to be secondary to ischemic nephropathy with atherosclerotic disease and ATN (has had BX) - Baseline, on data review, appears to be between 1.4 - 1.8 - Monitor BMP while here. No evidence of JUN. Code: Full code Diet: Strict NPO with Pancreatitis; LR @ 200cc/hr, AAT PPX: Therapeutic heparin gtt ongoing Consults: Hematology, GI, Orthopedics Dispo: MS/Tele (2) Portal vein thrombosis: (3) Acute superficial venous thrombosis of right lower extremity: (4) Shortness of breath: (5) Right foot pain: Admission and Anticipated Discharge Date Admission Date: October 01, 2021 Supervising Physician Co-Signing Physician Notes I personally examined the patient and verified all bailey points of history and exam, discussed case, and agree with decision making with Dr Herrera. Feeling better. Abdominal pain better. Feels like he could eat. Generally fatigued, but otherwise no acute complaints. Vitals noted, in general he is awake and alert pleasant no distress. HEENT normocephalic atraumatic mucous membranes moist. Breathing unlabored no accessory muscle use good effort. Abdomen is soft nondistended nontender no masses organomegaly. Extremities are without cyanosis or clubbing, he has chronic venous stasis changes, scabbed over wounds on the dorsum of his left foot, nursing is removing suturesthere is no erythema or exudate Pancreatitisalmost certainly alcohol related, fortunately improving quite nicely and quite quickly. Continue fluids, advance diet, supportive care. Portal vein thrombosis/thrombophlebitisin the face of being on Eliquis (and by his history, he probably misses a dose every 8 weeks at the most) and in the context of a difficult to explain elevated INRheparin drip for now, would greatly appreciate hematology input Foot swellingquestion of infectionbut fortunately no signs or symptoms of sepsis (i.e. no urgency to start empiric antibiotics)serial exams, serial labs, orthopedics input Otherwise as above Subjective NAEO. Feeling "much better" this AM. Says abdominal pain is nearly gone. No nausea or vomiting overnight. Tolerating IVF without issues. No CP/palpitations/SOB at present - history of such noted. Denies chills or night sweats. Says that he has lost "15 lb" since his illness back in July (refers to ulcers that required hospitalization, but also some sort of "illness" before that). Appetite has been lousy. H&P reviewed with patient, no significant changes to add. Review of Systems Review of Systems: as per HPI Physical Exam Physical Exam: General: Tired appearing 41-year-old male lying back in his hospital bed, NAD. HEENT: Eyes are anicteric. MMM. No JVD. Cardiac: NRRR, S1/S2 present with holocystolic murmur best heard at the apex. Pulmonary: CTAB w/o crackles or wheezes Abdominal: NABS. Abdomen is soft, nontender, and nondistended - including in the epigastrum. No hepatomegaly. Extremities/Dermatologic: Examination of the RLE does reveal 1+ pitting edema that is TTP. Purplish discoloration is appreciated from the ankle downward. No obvious areas of erythema. Strength 4/5. Results & Data Results & Data ([facility]) Vital Signs (Past 12 Hours) Vital Signs Temp Pulse Pulse Resp BP Pulse Ox 10/02/21 04:03 37.5 C 98 H 20 109/69 97 10/01/21 23:25 36.8 C 91 H 20 133/88 98 10/01/21 22:19 89 10/01/21 19:51 37.2 C 88 20 144/99 H 100 Resident Activity Tracking Resident Involvement: Resident Care Provided Care Provided: [facility]
[2021-10-02] MEDS: POTASSIUM CHLORIDE / WTR 10 MEQ/100 ML PLCT IV SCH ×4 (08:06→11:15)
[2021-10-02] MEDS: allopurinoL 100 MG TAB PO SCH (08:07)
[2021-10-02] MEDS ORDERED: PHYTONADIONE 10 MG in SODIUM CHLORIDE 0.9% 50 ML IV ONE (11:00)
--- NOTE | 2021-10-02 11:16 | Gastrointestinal Consultation ---
Date of Consultation October 02, 2021 Assessment & Plan (1) Alcohol use disorder: (2) Acute pancreatitis: (3) Mass of pancreas: Pt is a 41 yo male w acute pancreatitis (1st episode) suspected to be ETOH induced. Abd imaging showed 4cm pancreas head mass ? pseudocyst. LFTs, lipase trending down. - CL diet, advance to low fat as tolerated - May eventually DC IVF support if tolerating PO intake well - Symptomatic management with analgesics, antiemetics prn - Recommended to avoid ETOH - OP EUS intake in 4-6 week's time - Recommend Hematology workup given hx of PVT, DVT on Eliquis and elevated INR >10. - Pls recall GI prn Supervising Physician Co-Signing Physician Notes Consult for pancreatic mass History of etoh use, last drink he told me was 5 days ago (vodka daily - varying amount but over 4 drinks daily). Adm with abdominal pain - per workup presumed etoh pancreatitis Pain improving today Benign abd exam Conservative mgmt for pancreatitis as above Outpt eus for further evaluation of pancreatic finding on imaging. History of Present Illness Reason for Consultation: Pancreas lesion Requesting Physician: Dr. Noah Huang Attending Physician: Dr. Erna Daniels History of Present Illness Pt is a 41 y/o male who is currently admitted for pancreatitis with elevated LFTs, and lipase. He was drinking ETOH on daily basis (shots), no tobacco or illicit drugs, herbal supplements/new medications. No family hx of autoimmune pancreatitis or hx of pancreatic/hepatobiliary cancers. TG level was normal. It's noted on CT abd/pelvis + MRCP showed about 4cm mass on pancreas head area. He currently reports abd pain symptoms are improved, no jaundice, fever, chills, n/v, ready to start eating Allergies Allergy/AdvReac Type Severity Reaction Status Date / Time doxycycline Allergy Severe Joint Verified 10/01/21 09:46 Pain, Shortness of breath cephalexin Allergy Mild Rash Verified 10/01/21 09:46 Cipro Allergy Mild throat Verified 06/09/18 08:28 swells ciprofloxacin Allergy Mild throat Verified 10/01/21 09:46 swells Home Medications Medication Instructions Recorded Confirmed Type apixaban 5 mg tablet 5 mg PO BID #180 tab 11/07/20 10/01/21 Rx allopurinol 100 mg tablet 100 mg PO DAILY #90 tab 08/26/21 10/01/21 Rx Patient History Medical History Acute kidney injury Anemia Arthritis Chronic kidney disease with symptom management only, stage 4 (severe) Chronic venous insufficiency Deep vein thrombosis 07/2018/CHRONIC- ON ELIQUIS HTN (hypertension) MVP (mitral valve prolapse) 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 ECHO Secondary hyperparathyroidism of renal origin Staphylococcus aureus infection Superficial thrombosis of leg PER RECORDS UTI (urinary tract infection) Venous ulcer RECURRENT VENOUS ULCERATION (REASON FOR PROCEDURE) Vitamin D deficiency Surgical History Hx of biopsy LEFT KIDNEY S/P vascular surgery LLE 2/2 VENOUS INSUFFICIENCY Family History Mother FHx: lung cancer Hypertension Breast cancer Brother FHx: testicular cancer Hypertension Father Hypertension Unknown Myocardial infarction Social History Smoking Status: Never smoker Second Hand Exposure: No; Do You Dip or Chew Tobacco: No; Tobacco Cessation Education Requested by Patient: No Hx Alcohol Use: Yes Alcohol type: beer, wine and hard liquor Alcohol Intake Frequency Comment: daily Hx Substance Use: No Preferred Language: French Communication Ability: Effective Visual Impairment: No Limitations [employer] Front Desk Clerk Required: No Beliefs That Will Affect Care: None marital status: Single Current Living Situation: Alone Current Living Situation Comment: [place] Feels Safe at Home: Yes Safety Concerns: Feels Safe At This Time Assistive Devices: None Review of Systems Review of Systems: All systems reviewed & are unremarkable except as noted in HPI & below Physical Exam Constitutional: WD/WN, vitals as above well groomed, cooperative and comfortable Eyes: PERRL, conjunctivae normal, anicteric sclerae ENMT: external ear and nose normal, oropharynx normal Respiratory: normal respiratory effort, lungs clear to auscultation Cardiovascular: RRR, no murmur, no edema Gastrointestinal (Abdomen): normal bowel sounds, soft, nontender, no hepatosplenomegaly Skin: no rashes, warm and dry no jaundice Psychiatric: A+Ox3, euthymic affect Lymphatic: no lymphedema Results & Data ([facility]) Vital Signs (Past 12 Hours) Vital Signs Temp Pulse Pulse Resp BP Pulse Ox 10/02/21 11:13 37.2 C 89 20 125/85 99 10/02/21 07:34 37.2 C 92 H 20 122/82 98 10/02/21 07:12 97 H 10/02/21 04:03 37.5 C 98 H 20 109/69 97 10/01/21 23:25 36.8 C 91 H 20 133/88 98 (1) Acute pancreatitis Acute pancreatitis complication: unspecified Pancreatitis type: unspecified pancreatitis type Qualified Code(s): K85.90 - Acute pancreatitis without necrosis or infection, unspecified
--- NOTE | 2021-10-02 11:22 | Orthopedic Consultation ---
Date of Consultation October 02, 2021 Assessment & Plan (1) Right foot pain: Question injury of the right foot. MRI results as noted above. Having Dr. Ghosh/Noe Villagomez PA-C also review ankle/foot MRI. Read as no obvious abscess or fluid collections. Diffuse subq and deep tissue swelling. Pt had previous h/o starting his left foot abscess this way in the past but currently does not appear infected at this time. Consider ice pack to right foot with elevation for now. History of Present Illness Reason for Consultation: Right foot pain Attending Physician: Noah Huang DO History of Present Illness 41-year-old white male known to our practice from previous left foot abscess treated by Dr. Ghosh in July of this year. Patient readmitted yesterday secondary to subacute pancreatitis, portal vein thrombosis, with history of DVT right lower extremity, shortness of breath and right foot pain. Patient also noted to have an INR of greater than 10.7 although he is not on Coumadin/etiology unlclear at this time/Heme consult placed . Patient does take Eliquis twice daily. Patient states that he began having some right foot pain over the dorsum of the foot and over the Achilles area approximate 3 days ago. He noted some increased discoloration some increased pain with ambulation. We have been asked to see him for his right foot pain. Currently he appears comfortable. He states his left foot has been doing ok since the surgery but he has not followed up with Dr. Ghosh. Pt does not remember a specific injury to the right foot at this time. Allergies Allergy/AdvReac Type Severity Reaction Status Date / Time doxycycline Allergy Severe Joint Verified 10/01/21 09:46 Pain, Shortness of breath cephalexin Allergy Mild Rash Verified 10/01/21 09:46 Cipro Allergy Mild throat Verified 06/09/18 08:28 swells ciprofloxacin Allergy Mild throat Verified 10/01/21 09:46 swells Home Medications Medication Instructions Recorded Confirmed Type apixaban 5 mg tablet 5 mg PO BID #180 tab 11/07/20 10/01/21 Rx allopurinol 100 mg tablet 100 mg PO DAILY #90 tab 08/26/21 10/01/21 Rx Patient History Medical History Acute kidney injury Anemia Arthritis Chronic kidney disease with symptom management only, stage 4 (severe) Chronic venous insufficiency Deep vein thrombosis 07/2018/CHRONIC- ON ELIQUIS HTN (hypertension) MVP (mitral valve prolapse) 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 ECHO Secondary hyperparathyroidism of renal origin Staphylococcus aureus infection Superficial thrombosis of leg PER RECORDS UTI (urinary tract infection) Venous ulcer RECURRENT VENOUS ULCERATION (REASON FOR PROCEDURE) Vitamin D deficiency Surgical History Hx of biopsy LEFT KIDNEY S/P vascular surgery LLE 2/2 VENOUS INSUFFICIENCY Family History Mother FHx: lung cancer Hypertension Breast cancer Brother FHx: testicular cancer Hypertension Father Hypertension Unknown Myocardial infarction Social History Smoking Status: Never smoker Second Hand Exposure: No; Do You Dip or Chew Tobacco: No; Tobacco Cessation Education Requested by Patient: No Hx Alcohol Use: Yes Alcohol type: beer, wine and hard liquor Alcohol Intake Frequency Comment: daily Hx Substance Use: No Preferred Language: Yakut Communication Ability: Effective Visual Impairment: No Limitations Bill Clerk Required: No Beliefs That Will Affect Care: None marital status: Single Current Living Situation: Alone Current Living Situation Comment: [place] Feels Safe at Home: Yes Safety Concerns: Feels Safe At This Time Assistive Devices: Walker Physical Exam Physical Exam: Examination of the left foot shows a dorsal wound that still contains 4 nylon sutures. He has no major erythema and no drainage noted. Examination of the right foot show some increased swelling of the dorsum of the foot and around the ankle. He has some noted ecchymosis noted over the dorsum of the foot or the toes and also some ecchymosis noted on the medial aspect of the ankle. He has pain on palpation over the dorsum of the right foot the area of the ecchymosis. He also has pain on palpation over the Achilles tendon however I cannot appreciate any disruptions of the tendon itself. He has limited range of motion of the right ankle of which he states is his normal. When he does go through his limited DF/PF, he does not appear to be overtly tender with the ROM at the achilles tendon. He has some mild discomfort but not severe. Results & Data ([facility]) Vital Signs (Past 12 Hours) Vital Signs Temp Pulse Pulse Resp BP Pulse Ox 10/02/21 11:13 37.2 C 89 20 125/85 99 10/02/21 07:34 37.2 C 92 H 20 122/82 98 10/02/21 07:12 97 H 10/02/21 04:03 37.5 C 98 H 20 109/69 97 10/01/21 23:25 36.8 C 91 H 20 133/88 98 Diagnostic Findings Patient:JOCELYN JENSEN Admit Date:10/01/21 MR#:[id number] Address1:[address] [place] [address] Acct ID:[id number] Address2: Date:1980 [facility] Zip:[place] [address] Age:41 Location:[facility] Sex:M Room/Bed:[facility] [address] Att Phy:Erich Egan MD Diagnosis:ACUTE PANCREATITIS Catie Phy:Jaja Cali MD Service Date:10/01/21 Fam Phy: Interpreting Phy:Kahlil FisherAdmit Phy:Erich Egan MD Ordering Phy:Erich Egan MD cc: ~ MR ankle RT wo con, MR foot RT w/o con CLINICAL HISTORY: 41 years-old Male with ?abscess/osteomyelitis. Chronic pain and swelling of the right foot and ankle. Clinical concern prostate myelitis. COMPARISON: None. TECHNIQUE: Multiplanar, multi sequence MRI of the right foot and ankle was performed without contrast. FINDINGS: ANKLE: Motion degraded exam. The visualized tendons and ligaments of the ankle appear intact. Moderate subcutaneous edema of the ankle. No focal fluid collection. Normal bone marrow signal without acute fracture, dislocation, suspicious bone lesion or osseous erosion. No osteochondral defect or significant osteoarthritis. FOOT: Motion degraded exam. The visualized tendons and ligaments of the foot appear intact. Notably the interosseous band of the Lisfranc ligament is identified and appears normal. Moderate subcutaneous with deep tissue edema of the foot. Fluid collection. Normal bone marrow signal without acute fracture, dislocation, suspicious bone lesion or osseous erosion. No significant osteoarthritis. IMPRESSION: 1. Moderate nonspecific subcutaneous and deep tissue edema of the foot and ankle. Cellulitis, venous stasis or lymphedema are differential considerations. 2. No fluid collection to suggest abscess. 3. No acute fracture or evidence of osteomyelitis. ACT 112: Negative or not required by law.
[2021-10-02] MEDS: HEPARIN SODIUM/DEXTROSE 25,000 UNITS/500 ML BAG IV SCH (12:06)
[2021-10-02 13:59] LABS: Amphetamines+Metham, Urine Neg (Neg); Barbiturates, Urine Neg (Neg); Benzodiazepine, Urine Neg (Neg); Cocaine, Urine Neg (Neg); MDMA (Ecstacy), Urine Neg (Neg); Methadone, Urine Neg (Neg)
--- NOTE | 2021-10-02 17:02 | Billing Data ---
Date of Service October 02, 2021 Coding Level of Care Code 08236 Subseq Hosp Care Lvl 3
[2021-10-02 19:04] LABS: Adenovirus F 40/41 PCR Not Detected (NotDetected); Astrovirus PCR Not Detected (NotDetected); Campylobacter PCR Not Detected (NotDetected); Cryptosporidium PCR Not Detected (NotDetected); Cyclospora cayetanensis PCR Not Detected (NotDetected); Entamoeba histolytica PCR Not Detected (NotDetected); Enteroaggregative E.coli(EAEC) Not Detected (NotDetected); Enteropathogenic E.coli (EPEC) Not Detected (NotDetected); Enterotoxigenic E.coli (ETEC) Not Detected (NotDetected); Giardia lamblia PCR Not Detected (NotDetected); Norovirus GI/GII PCR Not Detected (NotDetected); Plesiomonas shigelloides PCR Not Detected (NotDetected); Rotavirus A PCR Not Detected (NotDetected); Salmonella PCR Not Detected (NotDetected); Sapovirus PCR Not Detected (NotDetected); Shiga-like Toxin E.coli (STEC) Not Detected (NotDetected); Shigella/Enteroinvasive E.coli Not Detected (NotDetected); Vibrio cholerae PCR Not Detected (NotDetected); Vibrio species PCR Not Detected (NotDetected); Yersinia enterocolitica PCR Not Detected (NotDetected)
[2021-10-02 19:38] LABS: Opiate, Urine Pos (Neg); Phencyclidine, Urine Neg (Neg)
[2021-10-02 20:36] LABS: Cdiff Antigen Positive; Cdiff Toxin A+B Negative Cdiff Toxin (Negative)
--- NOTE | 2021-10-02 23:38 | Consultation Report ---
HEMATOLOGY CONSULTATION NOTE DATE OF SERVICE: 10/02/2021. REASON FOR CONSULTATION: Elevated INR and FDP. HISTORY OF PRESENT ILLNESS: Mr. Sharif is a 41-year-old gentleman who was admitted after presenting to the ER with epigastric pain of about 2 weeks' duration, which progressively worsened prior to presentation to the ER. Abdominal pain was associated with nausea, vomiting, diarrhea, chest pain, and shortness of breath. Labs obtained in the ER had revealed elevated lipase of about 30,000 as well as prolonged PT of greater than 90 seconds, INR of greater than 10.7, and PTT of 31. CT abdomen obtained on 10/01/2021 revealed mild peripancreatic stranding and fluid consistent with acute pancreatitis as well as increase in size of cystic abnormality within the pancreatic head measuring 4.2 x 3.7 cm, which is said to be indeterminate and could reflect a cystic neoplasm or intrapancreatic pseudocyst. CT abdomen and pelvis also revealed portal vein thrombosis within the main portal vein, portal splenic confluence and right and left portal veins with thrombus nearly occlusive within the left portal vein. Cholangiopancreatography MRI performed on 10/01/2021 redemonstrated large cystic lesion in the pancreatic head with no evidence of bile duct obstruction, fat stranding in the pancreatic head compatible with acute pancreatitis as well. Previously noted thrombus in the portal vein was, however, not visualized on MRCP. Lower extremity ultrasound performed on 10/01/2021 revealed no DVT within the right or left lower extremity, but revealed long segment occlusive superficial vein thrombosis in the thigh, which appeared to extend for length of greater than 5 cm. The patient also had MRI ankle to evaluate right ankle swelling and pain, which revealed moderate nonspecific subcutaneous and deep tissue edema of the foot and ankle. Cellulitis, venous stasis or lymphedema were differential considerations. The patient is currently being managed for acute pancreatitis and portal vein thrombosis in the setting of coagulopathy. He was started on heparin drip, which he remains on at this time. During my evaluation of the patient today, he states that he has been on Eliquis for about 4 years. Eliquis was started for history of recurrent lower extremity clots. He states that he has had multiple ablations in bilateral lower extremities for lower extremity DVTs/SVTs. He endorses occasional noncompliance with Eliquis. Endorses alcohol use and states that he drinks about 3-4 shots of vodka daily. As mentioned above, he endorses abdominal pain, nausea, vomiting, chest pain, shortness of breath. Also endorses about 15 pounds weight loss over the past 1 month. He states that his mother was diagnosed with breast cancer in her 40s and brother has a history of testicular cancer. He also states that his mother has a history of DVT and PE. He denies any prior history of hypercoagulable workup. PAST MEDICAL HISTORY: 1. CKD stage III. 2. History of DVT. 3. Hypertension. 4. Recurrent foot infections. 5. Venous ulcers. PAST SURGICAL HISTORY: Multiple venous ablations. MEDICATIONS PRIOR TO ADMISSION: 1. Apixaban 5 mg p.o. b.i.d. 2. Allopurinol 100 mg p.o. daily. ALLERGIES: DOXYCYCLINE, CEPHALEXIN, CIPROFLOXACIN. SOCIAL HISTORY: Drinks alcohol daily. Denies smoking and illicit drug use. FAMILY HISTORY: Significant for breast cancer in his mother in her 40s, testicular cancer in his brother. Also, history of DVT/PE in his mother. REVIEW OF SYSTEMS: CONSTITUTIONAL: Positive for 15 pounds weight loss over the past 1 month. Denies fever, chills, or night sweats. CARDIOVASCULAR: Endorses chest pain. Denies palpitations, dizziness, or diaphoresis. RESPIRATORY: Endorses shortness of breath. Denies cough. GASTROINTESTINAL: Endorses nausea, vomiting, abdominal pain. Denies hematemesis. SKIN: Positive for ecchymosis in right lower extremity. GENITOURINARY: Negative. NEUROLOGIC: Negative. LYMPHATIC/HEMATOLOGIC: Denies abnormal bleeding, no bruising. Denies new adenopathy. MUSCULOSKELETAL: Negative. PHYSICAL EXAMINATION: VITAL SIGNS: Blood pressure 126/85, heart rate 80, respiratory rate 18, temperature 36.7, and oxygen saturation 94% on room air. HEENT: Eyes were without conjunctivae, erythema, or icterus. NECK: Negative for masses. RESPIRATORY: Lung sounds were generally clear bilaterally. CARDIOVASCULAR: Heart shows regular rate and rhythm without murmur, gallops, or rubs. GASTROINTESTINAL: Abdomen is soft, nontender with normal bowel sounds. No palpable hepatosplenomegaly. LYMPHATIC SYSTEM: There is no palpable peripheral lymphadenopathy. EXTREMITIES: Redness in bilateral lower extremities, worse on the right leg. Left leg bandaged. Warmth in bilateral lower extremities. LABORATORY DATA: CBC from 10/02/2021 revealed white cell count of 9, hemoglobin of 10.4, hematocrit of 32.2 with MCV of 111.8, and platelet count of 251. PTT greater than 90, INR greater than 10.7, PTT 31. PT mixing study revealed correction by addition of normal plasma indicating a factor deficiency. Chemistry nonsignificant. Lipase 28,819. IMAGING DATA: CT abdomen and pelvis on 10/01/2021, Impression, 1. Mild peripancreatic stranding and fluid consistent with acute pancreatitis. Increase in size of cyst abnormality within the pancreatic head measuring 4.2 x 3.7 cm. Areas of increased attenuation within this lesion could reflect debris or enhancing component. This remains indeterminate and could represent a cystic neoplasm or intrapancreatic pseudocyst. Nonemergent pancreas protocol MRI is recommended. In addition, GI consultation for consideration of EUS is recommended. 2. Portal vein thrombosis within the main portal vein, portal splenic confluence and right and left portal veins. Thrombus nearly occlusive within the left portal vein. 3. No biliary or pancreatic ductal dilatation. 4. Hepatic steatosis. MRCP on 10/01/2021 impression, 1. Redemonstration of large cystic lesion in the pancreatic head. No evidence of bile duct obstruction. 2. Fat stranding in the pancreatic head compatible with acute pancreatitis. 3. Previously noted thrombus in the portal vein is not well visualized on today's exam. Lower extremity Doppler study on 10/01/2021, impression, 1. No DVT within the right or left lower extremity. 2. Superficial vein thrombosis is noted within the thigh, which appears to extend for a length greater than 5 cm. Thrombus does not appear to come into close proximity to the deep venous system. IMPRESSION: 1. Coagulopathy. 2. Portal vein thrombosis. 3. Extensive superficial vein thrombosis. 4. Acute pancreatitis. 5. History of recurrent DVTs/SVTs. 6. Pancreatic lesion. A pleasant gentleman with history of alcohol abuse, who was admitted with acute pancreatitis .Labs demonstrated prolonged PT and INR suggestive of extrinsic/ common pathway factor deficiency/inhibitor. PT mixing study showed correction indicating a factor deficiency. Factor deficiency in the patient could also be due to recurrent antibiotic use causing vitamin K deficiencyfactor VII deficiency leading to prolonged PT and INR. Given significantly elevated lipase, coagulopathy could also possibly be due to consumption of coagulation factors from acute pancreatitis. As such, would recommend checking factors II, V, VII and X, which would determine whether he has a factor deficiency from liver disease, vitamin K deficiency, or acute pancreatitis or a combination of these. He will need hypercoagulable workup as well, which can be performed as an outpatient, given his history of recurrent DVTs. Also, agree with GI workup for pancreatic lesion as factor inhibitors have been associated with malignancies. PLAN: 1. Would recommend checking factors II, V, VII, and X as PT mixing study is suggestive of factor deficiency, which is most likely acquired given normal PT/INR on previous admissions. 2. He would benefit from hypercoagulable workup given extensive history of DVT/PE. 3. Agree with workup for underlying malignancy with EUS given increase in size of pancreatic lesion. Thank you for this consult. Hematology will continue following the patient while in the hospital. Please feel free to call if you have any further questions. Job ID: [id number] [facility]elson
[2021-10-03] MEDS: LACTATED RINGER'S 1,000 ML IV SCH (03:53)
[2021-10-03] MEDS: HEPARIN SODIUM/DEXTROSE 25,000 UNITS/500 ML BAG IV SCH (03:53)
[2021-10-03 06:00] LABS: Basophils # (auto) 0.04 K/uL (0-0.2); Basophils % (auto) 0.5 %; Eosinophils # (auto) 0.93 K/uL (0-0.5); Eosinophils % (auto) 11.4 %; Hematocrit (blood only) 29.4 % (42-52); Hemoglobin 9.5 g/dL (14.0-18.0); Immature Granulocytes # (auto) 0.01 K/uL (0.00-0.02); Immature Granulocytes % (auto) 0.1 %; Lymphocytes # (auto) 2.11 K/uL (1.2-3.4); Lymphocytes % (auto) 25.9 %; Mean Corpuscular Hemoglobin 35.6 pg (25-34); Mean Corpuscular Hgb Conc 32.3 g/dL (32-36); Mean Corpuscular Volume 110.1 fL (80-100); Mean Platelet Volume 8.3 fL (7.4-10.4); Monocytes # (auto) 0.75 K/uL (0.11-0.59); Monocytes % (auto) 9.2 %; Neutrophils # (auto) 4.31 K/uL (1.4-6.5); Neutrophils % (auto) 52.9 %; Platelet Count 250 K/uL (130-400); RDW Coefficient of Variation 14.8 % (11.5-14.5); RDW Standard Deviation 59.1 fL (36.4-46.3); Red Blood Count 2.67 M/uL (4.7-6.1); White Blood Count 8.15 K/uL (4.8-10.8)
[2021-10-03 06:36] LABS: BUN Creatinine Ratio 8.3 (10-20); Calcium 7.9 mg/dl (8.5-10.1); Creatinine Clr Calc Pharmacy 104.4 ml/min; Est GFR (African American) 92.7 ml/min; Potassium 3.4 mmol/L (3.5-5.1)
[2021-10-03 06:44] LABS: Macrocytosis Present
--- NOTE | 2021-10-03 07:16 | Hospitalist Progress Note ---
Date of Service October 03, 2021 Assessment & Plan (1) Acute pancreatitis: Plan: Anthony is a 41-year-old male with a history of bilateral DVT on Eliquis (3-5 years ago), chronic LE venous insufficiency and ulcers - follows with Dr. Goss and [facility], recent LEFT foot ulcer/abscess/tenosynovitis s/p I&D in 07/2021, previous Pseudomonal cellulitis, alcohol abuse, CKD4, COVID-19 infection in 09/2020, MVP with regurgitation, and >1 year exertionally-related chest pain who presented primarily for epigastric abdominal pain x 1-2 days, subsequently found to have serologic and radiologic evidence of acute pancreatitis, alongside pancreatic lesion/mass and portal vein thrombosis, on abdominal imaging. During this initial work-up, he was also found to have significantly elevated INR (>10) and RLE swelling. No signs of active bleeding at this time. SUBACUTE PANCREATITIS - In the context of abdominal pain with significant recent alcohol use and pancreatic mass, and imaging in 07/2021 consistent with (asymptomatic) pancreatitis and elevated lipase - Work-up as follows: * CT-A/P, MRCP demonstrating with changes c/w acute pancreatitis * Lipase on admission ~30,000 ; Hct on admission 36.2 * Triglycerides normal * MRCP: Large pancreatic head cyst, non-obstructive. Portal VT not well visualized. - Suspect secondary to alcohol use in case, especially with macrocytosis - Ween IVF through today - Advance diet, anticipate being able to initiate solids today - Zofran p.r.n. for nausea, Dilaudid p.r.n. for pain - GI consult ([facility] [place]) for Pancreatic Mass, as below ELEVATED INR -- >10 on arrival, in setting of apparent hypercoagulable state - In the setting of PVT, as above, and superficial venous thrombosis; noted history of DVT noted in past - Patient noted to have significantly elevated INR (>10) on arrival with relatively normal LFTs - On arrival, aPTT just slightly elevated (33.3). Platelets normal (250). LFTs largely normal. FDP elevated, fibrinogen normal. - Etiology unclear: Alcohol history noted, but no overt signs of cirrhosis/liver failure. Pancreatitis may be contributing. DIC also considered, however platelets normal. Given near-normal aPTT with significantly elevated INR on arrival and previous clots and no improvement s/p Vitamin K x 10mg -- ?pathology with extrinsic coagulation pathway, induced (e.g., paraneoplastic) vs. intrinsic (genetic). - Hematology consultation, appreciate insight and recommendations: pending hypercoagulability work-up - As INR does not necessarily reflect anticoagulation effect, and with active thrombosis, continue with heparin gtt for now ?initiate dabigatran as po agent given failure of Xa inhibitor and inability to utilize INR - Monitor for bleeding, CBC qday PORTAL VEIN THROMBOSIS (PVT) - New. Formed despite patient being chronically on Eliquis for previous DVTs (assuming appropriate compliance). Of note, has h/o clots forming in the past while on therapy, too. Formed despite significantly elevated INR with normal PTT. - CT-A/P demonstrating "portal venous thrombus within the main portal vein, portosplenic confluence and R/L portal vv" - Initiate heparin gtt - admitting provider spoke with Hematology on admission, aware - Hematology consultation, hypercoagulability work-up as above - Hold Eliquis RLE SUPERFICIAL VENOUS THROMBOSIS - On admission, discovered to have notable RLE swelling and venous stasis changes - Venous Dopplers revealing of bilateral superficial venous thromboses without evidence of DVTs - In setting of PVT, elevated INR above, concerning for hypercoagulable state - Work-up as above, see elevated INR problem PANCREATIC LESION - Noted to have 4.2 x 3.7cm pancreatic head mass with cystic appearance; ?cystic neoplasm vs. intrapancreatic pseudocyst - In setting of the above issues, including pancreatitis - GI Consulted: Recommend EUS as outpatient in 6-8 weeks time - CA19-9 returned elevated (90). Will draw CEA in AM labs. RIGHT FOOT PAIN - Patient with recent history of LEFT tenosynovitis and ulcer/abscess, recently s/p I&D in 07/2021 - Notable RLE swelling and venous stasis / ecchymotic changes x 2d appreciated on exam -- no e/o abscess/ulcer - MRI Foot/Ankle performed: Subcutaneous deep tissue edema, no abscess or evidence of osteomyelitis - Suspect likely secondary to injury and venous stasis/lymphedema rather than cellulitis at this time - Orthopedics consulted: continue supportive care INTERMITTENT CHEST PAIN - Reported history of intermittent exertionally-related CP x 1 year and new baseline shortness of breath - Follows with cardiology as outpatient (note from 09/27 reviewed), primarily for MVP w/ regurgitation --> notes indicate plans to perform dobutamine stress test - No complaints/CP at present. ECG, troponin normal since admission. - Monitor. Consider inpatient stress test p.r.n. CHRONIC SHORTNESS OF BREATH - Reported >1 year history of shortness of breath, patient reports since COVID- 19 infection in 09/2020 - Follows with cardiology -- with outpatient plans to perform dobutamine stress, as above - Possibly ?PEs in setting of hypercoagulability -- though chronicity >1 year is noted. +tachycardia. No O2 req. - Monitor. Consider TTE while here. ALCOHOL USE DISORDER - Patient reports drinking 3-4x mixed drinks (with 3-4 shots of Vodka) q.o.d. [approx. 52 drinks/week] x months - Last drink apparently >5 days ago, per patient - No signs, symptoms of withdrawal at present. If concerns for more recent use, initiate AWSS. - Encouraged alcohol cessation. Would likely benefit from naltrexone as outpatient pending goal setting. CKD 3B/4 - Follows with Dr. Muñoz as outpatient w/ [facility] [place] Nephrology - Suspected to be secondary to ischemic nephropathy with atherosclerotic disease and ATN (has had BX) - Baseline, on data review, appears to be between 1.4 - 1.8 - Monitor BMP while here. No evidence of JUN. Code: Full code Diet: Fluids, AAT. Ween IVF. PPX: Therapeutic heparin gtt ongoing Consults: Hematology, GI, Orthopedics Dispo: MS/Tele (2) Portal vein thrombosis: (3) Acute superficial venous thrombosis of right lower extremity: (4) Shortness of breath: (5) Right foot pain: Admission and Anticipated Discharge Date Admission Date: October 01, 2021 Subjective NAEO. Tolerating clears well. Abdominal pain gone. No n/v. Feeling hungry for real food. No CP/palpitations/SOB. Spirits are good. Review of Systems Review of Systems: as per HPI Physical Exam Physical Exam: General: Tired appearing 41-year-old male lying back in his hospital bed, NAD. HEENT: Eyes are anicteric. MMM. No JVD. Cardiac: NRRR, S1/S2 present with holocystolic murmur best heard at the apex. Pulmonary: CTAB w/o crackles or wheezes Abdominal: NABS. Abdomen is soft, nontender, and nondistended - including in the epigastrum. No hepatomegaly. Extremities/Dermatologic: Examination of the RLE does reveal 1-2+ pitting edema that is TTP. Purplish discoloration is appreciated from the ankle downward. No obvious areas of erythema. Strength 4/5. Results & Data Results & Data ([facility]) Vital Signs (Past 12 Hours) Vital Signs Temp Pulse Pulse Resp BP Pulse Ox 10/03/21 04:00 37.1 C 90 18 115/76 97 10/02/21 23:00 36.6 C 94 H 18 116/75 96 10/02/21 22:20 93 H Resident Activity Tracking Resident Involvement: Resident Care Provided Care Provided: Adult Hospital Medicine
[2021-10-03] MEDS: allopurinoL 100 MG TAB PO SCH (08:12)
[2021-10-03 08:14] LABS: Partial Thromboplastin Ratio 2.4
[2021-10-03] MEDS: POTASSIUM CHLORIDE / WTR 10 MEQ/100 ML PLCT IV SCH ×4 (08:15→12:03)
[2021-10-03 08:28] LABS: Partial Thromboplastin Time 62.1 Seconds (21.0-31.0)
[2021-10-03 08:31] LABS: INR > 10.7 (0.9-1.1); Prothrombin Time > 90.0 Seconds (9.0-12.0)
[2021-10-03] MEDS ORDERED: MULTIVITAMIN TAB PO SCH (09:00)
[2021-10-03] MEDS ORDERED: THIAMINE HCL 100 MG TAB PO SCH (09:00)
[2021-10-03] MEDS ORDERED: LACTATED RINGER'S 1,000 ML IV SCH (09:00)
--- NOTE | 2021-10-03 11:53 | Communication Note ---
Date of Service: October 03, 2021 Stop by to recheck the patient today. He feels that his pain is about the same in the right foot however he has noticed less discoloration today. MRI reviewed by foot and ankle team over at [facility] yesterday, as well as Dr. Goodrich this morning. No focal areas of abscess seen diffuse edema noted. Nothing surgical at this time. Consider antibiotics if patient develops increasing erythema. Otherwise continue elevation of the right lower extremity ice packs as needed.
[2021-10-03] MEDS ORDERED: ENOXAPARIN 100 MG/1ML SYR SQ ONE (14:00)
--- NOTE | 2021-10-03 14:37 | Discharge Summary ---
Date of Service October 03, 2021 Admission HPI Per Admitting Provider Anthony Sharif is a 41 year old male who presents to the ER with epigastric pain, radiating into back. He reports this has been progressively getting worse over the last 2-3 weeks, but significantly worse today. Severity 5-6/10 at worse, currently 2-3/10 after morphine given in the ER. Associated nausea, vomiting and diarrhea. He reports never having pancreatitis previously. However he was admitted here from August 20-2020 due to left foot ulcer and abscess with tenosynovitis requiring I&D and on that occasion was noted to have an elevated lipiase and CT abdomen showing peripancreatic stranding. Per notes at the time he was not having any symptoms relating to this. He does drink excessive alcohol, especially last year where he was drinking 3-6 shots of vodka every day. More recently 3-4 days a week he drinks 3-6 shots of vodka. He denies any tobacco or illicit drug use. He also reports associated shortness of breath but reports this is more chronic ever since he had COVID last year. He feels much weaker and short of breath with his current illness. In addition he reports ecchymosis and swelling of his right foot that has occurred over the last 2 days. He denies any trauma and is particularly concerned about this since he feels this is how the infection started in his left foot. He denies any fever or chills. He has also noted a superficial thrombosis in his right thigh despite taking Eliquis. In the ER CT A/P was concerning for portal vein thrombosis. The patient takes Eliquis chronically due to history of DVT for the last 2 years. He reports missing a dose this morning due to his acute illness however is otherwise compliant. CT also showed worsening pancreatitis. Family history of brother had testicular cancer, Mother with breast cancer. Admission Exam Per Admitting Provider Constitutional: WD/WN, vitals as above no acute distress Eyes: PERRL, conjunctivae normal, anicteric sclerae ENMT: external ear and nose normal, oropharynx normal Neck: trachea midline, no thyromegaly Respiratory: normal respiratory effort, lungs clear to auscultation Cardiovascular: Rate/Rhythm: regular rhythm and + tachycardic Heart Sounds: no murmur Extremities: normal capillary refill and + pedal edema (trace right ankle); no calf tenderness Gastrointestinal (Abdomen): Percussion/Palpation: + abdomen tender (epigastric) and abdomen soft; no guarding and abdomen not rigid Skin: Superficial thrombosis felt in right thigh Ecchymosis around right Achilles and dorsal aspect of distal right foot Bandage on left foot not removed but no erythema spreading beyond bandage Neurologic: moves all extremities and awake; not confused Psychiatric: A+Ox3, euthymic affect Principal Diagnosis subacute pancreatitis elevated INR portal vein thrombosis bilateral superficial venous thromboses of lower extremity venous stasis alcohol use disorder Discharge Exam General: Tired appearing 41-year-old male lying back in his hospital bed, NAD. HEENT: Eyes are anicteric. MMM. No JVD. Cardiac: NRRR, S1/S2 present with holocystolic murmur best heard at the apex. Pulmonary: CTAB w/o crackles or wheezes Abdominal: NABS. Abdomen is soft, nontender, and nondistended - including in the epigastrum. No hepatomegaly. Extremities/Dermatologic: Examination of the RLE does reveal 1-2+ pitting edema that is TTP. Purplish discoloration is appreciated from the ankle downward. No obvious areas of erythema. Strength 4/5. Discharge Data Allergies Allergy/AdvReac Type Severity Reaction Status Date / Time doxycycline Allergy Severe Joint Verified 10/01/21 09:46 Pain, Shortness of breath cephalexin Allergy Mild Rash Verified 10/01/21 09:46 Cipro Allergy Mild throat Verified 06/09/18 08:28 swells ciprofloxacin Allergy Mild throat Verified 10/01/21 09:46 swells Consultations 10/01/21 12:09 Consult Orthopedic Surgery Routine -- excerpted by Rashel Uribe PA-C "Question injury of the right foot. MRI results as noted above. Having Dr. Ghosh/Noe Villagomez PA-C also review ankle/foot MRI. Read as no obvious abscess or fluid collections. Diffuse subq and deep tissue swelling. Pt had previous h/o starting his left foot abscess this way in the past but currently does not appear infected at this time. Consider ice pack to right foot with elevation for now." 10/01/21 16:47 Consult Hematology Routine -- excerpted by Dr. Arce (10/03) "IMPRESSION: 1. Coagulopathy. 2. Portal vein thrombosis. 3. Extensive superficial vein thrombosis. 4. Acute pancreatitis. 5. History of recurrent DVTs/SVTs. 6. Pancreatic lesion. A pleasant gentleman with history of alcohol abuse, who was admitted with acute pancreatitis .Labs demonstrated prolonged PT and INR suggestive of extrinsic/ common pathway factor deficiency/inhibitor. PT mixing study showed correction indicating a factor deficiency. Factor deficiency in the patient could also be due to recurrent antibiotic use causing vitamin K deficiencyfactor VII deficiency leading to prolonged PT and INR. Given significantly elevated lipase, coagulopathy could also possibly be due to consumption of coagulation factors from acute pancreatitis. As such, would recommend checking factors II, V, VII and X, which would determine whether he has a factor deficiency from liver disease, vitamin K deficiency, or acute pancreatitis or a combination of these. He will need hypercoagulable workup as well, which can be performed as an outpatient, given his history of recurrent DVTs. Also, agree with GI workup for pancreatic lesion as factor inhibitors have been associated with malignancies. PLAN: 1. Would recommend checking factors II, V, VII, and X as PT mixing study is suggestive of factor deficiency, which is most likely acquired given normal PT/INR on previous admissions. 2. He would benefit from hypercoagulable workup given extensive history of DVT/PE. 3. Agree with workup for underlying malignancy with EUS given increase in size of pancreatic lesion. Thank you for this consult. Hematology will continue following the patient while in the hospital. Please feel free to call if you have any further questions." 10/02/21 08:49 Consult Gastroenterology Routine -- excerpted from YUNIEL Sharma "Pt is a 41 yo male w acute pancreatitis (1st episode) suspected to be ETOH induced. Abd imaging showed 4cm pancreas head mass ? pseudocyst. LFTs, lipase trending down. - CL diet, advance to low fat as tolerated - May eventually DC IVF support if tolerating PO intake well - Symptomatic management with analgesics, antiemetics prn - Recommended to avoid ETOH - OP EUS intake in 4-6 week's time - Recommend Hematology workup given hx of PVT, DVT on Eliquis and elevated INR >10. - Pls recall GI prn" Ordered Studies 10/01/21 09:06 CT abd pelvis IV con only Stat IMPRESSION: 1. Mild peripancreatic stranding and fluid consistent with acute pancreatitis. Increase in size of the cystic abnormality within the pancreatic head, measuring 4.2 x 3.7 cm. Areas of increased attenuation within this lesion could reflect debris or enhancing component. This remains indeterminate and could reflect a cystic neoplasm or intrapancreatic pseudocyst. Nonemergent pancreas protocol MRI is recommended. In addition, GI consultation for consideration for endoscopic sampling is recommended. 2. Portal venous thrombus within the main portal vein, portosplenic confluence and right and left portal veins. Thrombus nearly occlusive within the left portal vein. 3. No biliary or pancreatic ductal dilatation. 4. Hepatic steatosis. 10/01/21 11:23 MR MRCP Routine IMPRESSION: 1. Redemonstration of large cystic lesion in the pancreatic head. No evidence of bile duct obstruction. 2. Fat stranding in the pancreatic head compatible with acute pancreatitis. 3. Previously noted thrombus in the portal vein is not well visualized on today's exam. 10/01/21 11:50 US venous doppler LE BI Urgent IMPRESSION: 1. No DVT within the right or left lower extremity. 2. Superficial venous thrombus as above. 10/01/21 12:06 US arterial duplex LE BI Stat FINDINGS: Predominantly triphasic waveforms are noted throughout the lower extremities. No arterial occlusion or elevated peak systolic velocities to suggest high-grade stenosis. 10/01/21 12:07 MR ankle RT wo con Routine MR foot RT w/o con Routine IMPRESSION: 1. Moderate nonspecific subcutaneous and deep tissue edema of the foot and ankle. Cellulitis, venous stasis or lymphedema are differential considerations. 2. No fluid collection to suggest abscess. 3. No acute fracture or evidence of osteomyelitis. Hospital Course (1) Acute pancreatitis: Anthony is a 41-year-old male with a history of bilateral DVT on Eliquis (3-5 years ago), chronic LE venous insufficiency and ulcers - follows with Dr. Goss and [facility], recent LEFT foot ulcer/abscess/tenosynovitis s/p I&D in 07/2021, previous Pseudomonal cellulitis, alcohol abuse, CKD4, COVID-19 infection in 09/2020, MVP with regurgitation, and >1 year exertionally-related chest pain who presented primarily for epigastric abdominal pain x 1-2 days, subsequently found to have serologic and radiologic evidence of acute pancreatitis, alongside pancreatic lesion/mass and portal vein thrombosis, on abdominal imaging. During this initial work-up, he was also found to have significantly elevated INR (>10) -- suspected to be secondary to extrinsic coagulation abnormality -- and RLE swelling -- likely from venous stasis changes. SUBACUTE PANCREATITIS - In the context of abdominal pain with significant recent alcohol use and pancreatic mass, and imaging in 07/2021 consistent with (asymptomatic) pancreatitis and elevated lipase - Work-up as follows: * CT-A/P, MRCP demonstrating with changes c/w acute pancreatitis * Lipase on admission ~30,000 * Triglycerides normal * MRCP: Large pancreatic head cyst, non-obstructive. Portal VT not well visualized. - Suspect secondary to alcohol use in case, especially with macrocytosis - Initially treated with agressive hydration. Gradually advanced diet back to normal. Tolerated well. - [place] consult [place] Pancreatic Mass, as below ELEVATED INR -- >10 on arrival, in setting of apparent hypercoagulable state - In the setting of PVT, as above, and superficial venous thrombosis; noted history of DVT noted in past - Patient noted to have significantly elevated INR (>10) on arrival with relatively normal LFTs - On arrival, aPTT just slightly elevated (33.3). Platelets normal (250). LFTs largely normal. FDP elevated, fibrinogen normal. - Etiology unclear: Pancreatitis likely contributing. Alcohol history noted, but no overt signs of cirrhosis/liver failure. DIC considered, however no bleeding and platelets normal. Given near-normal aPTT with significantly elevated INR on arrival and previous clots and no improvement s/p Vitamin K x 10mg -- suspect secondary to abnormality within the extrinsic coagulation pathway, unclear induced (e.g., paraneoplastic) vs. intrinsic (genetic). - Hematology consultation, appreciate insight and recommendations: will require follow-up as outpatient - As INR does not necessarily reflect anticoagulation effect, and with active thrombosis: -- Initially on heparin gtt while here, transitioned to Lovenox prior to discharge -- Hematology recommending enoxaparin 1mg/kg (100mg) b.i.d. until otherwise directed by hematology - Consider CBCd f/u as outpatient PORTAL VEIN THROMBOSIS (PVT) - New. Formed despite patient being chronically on Eliquis for previous DVTs (assuming appropriate compliance). Of note, has h/o clots forming in the past while on therapy, too. Formed despite significantly elevated INR with normal PTT. - CT-A/P demonstrating "portal venous thrombus within the main portal vein, portosplenic confluence and R/L portal vv" - Concerning for hypercoagulable state in setting of SVTs and elevated INR - Hold Eliquis. On heparin while here. Transition to Lovenox at discharge. - Hematology consult, as above BILATERAL SUPERFICIAL VENOUS THROMBOSES (SVT) - On admission, discovered to have notable RLE swelling and venous stasis changes - Venous Dopplers revealing of bilateral superficial venous thromboses without evidence of DVTs - Concerning for hypercoagulable state in setting of PVT and elevated INR - Hold Eliquis. On heparin while here. Transition to Lovenox at discharge. - Hematology consult, as above PANCREATIC LESION - Noted to have 4.2 x 3.7cm pancreatic head mass with cystic appearance; ?cystic neoplasm vs. intrapancreatic pseudocyst - In setting of the above issues, including pancreatitis - GI Consulted: Recommend EUS as outpatient in 6-8 weeks time (seen by [facility] [place] here given EUS capabilities) - CA19-9 returned elevated (90). Consider drawing CEA level as outpatient. RIGHT FOOT PAIN - Patient with recent history of LEFT tenosynovitis and ulcer/abscess, recently s/p I&D in 07/2021 - Notable RLE swelling and venous stasis / ecchymotic changes x 2d appreciated on exam -- no e/o abscess/ulcer - MRI Foot/Ankle performed: Subcutaneous deep tissue edema, no abscess or evidence of osteomyelitis - Suspect likely secondary to injury and venous stasis/lymphedema rather than cellulitis at this time - Orthopedics consulted: continue supportive care, no evidence of infection at present INTERMITTENT CHEST PAIN - Reported history of intermittent exertionally-related CP x 1 year and new baseline shortness of breath - No complaints/CP at present. ECG, troponin normal since admission. - Follows with cardiology as outpatient (note from 09/27 reviewed), primarily for MVP w/ regurgitation --> notes indicate plans to perform dobutamine stress test, follow-up as previously indicated upon discharge CHRONIC SHORTNESS OF BREATH - Reported >1 year history of shortness of breath, patient reports since COVID- 19 infection in 09/2020 - Follows with cardiology -- with outpatient plans to perform dobutamine stress, as above - Possibly ?PEs in setting of hypercoagulability -- though chronicity >1 year is noted. +tachycardia. No O2 req. - Work-up as above ALCOHOL USE DISORDER -- with macrocytosis on labs - Patient reports drinking 3-4x mixed drinks (with 3-4 shots of Vodka) q.o.d. [approx. 52 drinks/week] x months - Last drink apparently >5 days ago, per patient - No signs, symptoms of withdrawal during admission. Did not require AWSS - Encouraged alcohol cessation. Would likely benefit from naltrexone as outpatient pending goal setting. - Continue thiamine, MVI at discharge CKD 3B/4 - Follows with Dr. Muñoz as outpatient w/ [facility] [place] Nephrology - Suspected to be secondary to ischemic nephropathy with atherosclerotic disease and ATN (has had BX) - Baseline, on data review, appears to be between 1.4 - 1.8 - No evidence of JUN while admitted Code: Full code (2) Portal vein thrombosis: (3) Acute superficial venous thrombosis of right lower extremity: (4) Shortness of breath: (5) Right foot pain: Total Time Total Time Spent Total Time Spent (In Minutes): <30 Discharge Plan Discharge Items Patient Disposition: Home - Self-Care Reason For Visit: ACUTE PANCREATITIS Discharge Diagnosis: subacute pancreatitis elevated INR portal vein thrombosis bilateral superficial venous thromboses of lower extremity venous stasis alcohol use disorder Condition on Discharge: Fair Activity: Per Instructions section Non-emergency contact: Primary Care Provider Call non-emergency contact if: you have any medication questions, your symptoms worsen, your pain is worsening, your pain is concerning for you and your temperature is above 101 Follow-up/Referrals: Abdulkadir Real DO [Physician] - (A referral has been sent to [facility]emat[facility] on your behalf. They will reach out to you direclty to schedule your appointment.) Jaja Cali MD [Primary Care Provider] - Sachi Pressley MD [Hospitalist] - 11/13/21 12:30 pm ([facility]. Please disregard the listed [place] address as this is NOT accurate. Thank you.) Diet: Regular Addtl Attending Provider Instructions: You were seen at [facility] for evaluation of abdominal pain. Upon your arrival, you underwent several tests - imaging and laboratory - to determine the cause of this pain. Your imaging tests demonstrated inflammatory changes within the liver (acute pancreatitis) -- which is likely to be the cause of your pain. The most likely cause of your pancreatitis is heavy, frequent alcohol use; this irritates the liver and pancreas in such a way that can cause extreme episodes of inflammation and pain. It is critical upon leaving the hospital that you moderate your alcohol use, with cessation being optimal. There are many different treatment modalities for difficulties with alcohol use at this point in time -- including medications and evidence-based group therapies. We recommend that you talk with your PCP about these and what may be a good fit for you. You were noted to have several other discoveries during your work-up for this pain -- of which are thought, currently, to be unrelated. You were noted to have blood clots with your liver's vein system, as well as in the veins close to the skin within both of your legs. Combined with abnormal clotting markers within your blood, the fact that these all formed while you were on Eliquis -- which is supposed to prevent these sorts of clots -- is concerning for "hypercoagulability" (state in which the body forms clots very easily). Sometimes this can be due to liver dysfunction; sometimes, however, it can be due to genetic conditions or conditions that make your body's immune system attack healthy clotting proteins in the blood. The exact cause of your hypercoagulability is currently unknown, although a broad laboratory work-up is ongoing. It will be very important for you to follow up with hematology (doctors that specialize in blood / clotting disorders) upon discharge. Our patient navigator will help you do this. You will have to be on a different type of blood thinner (enoxaparin / Lovenox) upon discharge to ensure your pre-existing clots do not grow and stabilize appropriately, as Eliquis cannot be safely resumed at this time. You were also found to have a "spot" on your pancreas during this imaging. While it is possible that this may be a benign cyst, it will require further work-up by your gastroenterology team in 6-8 weeks after discharge. On physical exam, you were noted to have changes in your right leg that are likely related to blood pooling in the veins, and contributory from your leg clots. Please use compression stockings on a regular basis to promote fluid return. Continue elevating your legs above the level of the heart when resting. Continue regular walking. All of these methods help drain extra fluid from the legs back into the body, and reduce pain. You demonstrated great improvement with response to IV fluids and slowly progressing your diet. Your pancreatitis clinically improved prior to your discharge. You are welcome to consume foods / liquids as you feel able. Please note the following medication changes/additions/deletions upon discharge: -- BEGIN Enoxaparin 100mg, twice daily, injected subcutaneously until otherwise directed by your fare enforcement officer -- BEGIN a multivitamin, taken once daily -- BEGIN thiamine 100mg, once daily -- STOP apixaban (Eliquis) Please follow-up with your PCP within 1 week to review this visit. Also follow- up on your hematology and GI consultations at this time. In the interim, if you experience worsening belly pain, nausea, vomiting, loss of appetite, fevers, chills, night sweats, dizziness, lightheadedness, bleeding (e.g., blood in stool, coughing blood, frequent nose bleeds), or worsening shortness of breath, please report immediately to the ER for evaluation. We wish you all the best in your recovery and it has been a pleasure caring for you while you were here. Pending Studies at Discharge: Yes (hypercoagulability panel) Stand-Alone Forms: My [facility], Smoking Cessation Medications and DC Order Prescriptions: New thiamine HCl (vitamin B1) [Vitamin B-1] 100 mg Tablet 300 mg PO QAM 30 Days Qty: 90 RF: 0 enoxaparin 100 mg/mL Syringe 100 mg subcut Q12H 30 Days Qty: 60 RF: 0 multivitamin with folic acid [Daily-Lisa (with folic acid)] 400 mcg Tablet 1 tab PO QAM 30 Days Qty: 30 RF: 0 Continued allopurinol 100 mg tablet 100 mg PO DAILY Qty: 90 RF: 3 Discontinued apixaban 5 mg tablet 5 mg PO BID Qty: 180 RF: 1 Discharge Orders: Discharge Order (Routine); Ordered 10/03/21 Ordered By: Noah Abdalla/Other Patient Handouts: ED Pancreatitis Admission Data Admit Date/Time: 10/01/21 12:28 Attending Provider: Noah Huang Admit Provider: Erich Egan Primary Care Provider: Jaja Cali Other Providers: Erich Egan ; Jose A Ghosh ; Janett Arce ; Silvino Sher ; Nissa Oconnor ; Zak Mckoy ; Allison Mohamud ; Devendra Fragoso ; Radha Marrufo ; Kasia Lloyd ; Graham Woods ; Soraida Snow ; Rosalba Rivera ; Haley Kevin ; Erna Daniels ; Sachi Pressley Supervising Physician Co-Signing Physician Notes I personally examined the patient and verified all bailey points of history and exam, discussed case, and agree with decision making with Dr Herrera. Feeling better. Belly feeling better. Has eaten full liquids as well as some mario crackers with no difficulty, feels up to tolerating or trying regular food later. Notes that he drinks to manage knee and foot pain after working. Vitals noted, in general he is awake and alert pleasant no distress. HEENT normocephalic atraumatic mucous membranes moist. Breathing unlabored no accessory muscle use good effort. Knees with a little bit of joint line tenderness, no effusions no crepitus. Pancreatitisalmost certainly alcohol related, fortunately improving quite nicely and quite quickly. Advancing dietif able to tolerate regular diet, safe for home tonight. 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 no urgency to start empiric antibiotics)and no compelling evidence of a deeper infection after extensive review and imaging Knee painoutpatient evaluation for any sort of a rheumatologic process, although he exam is relatively reassuring hereVoltaren gel (explained to patient in detail as far as appropriate/proper use needing to be 3 times daily to 4 times daily scheduled for any meaningful impact Otherwise as above, as long as he tolerates regular diet stable for home
--- NOTE | 2021-10-03 17:10 | Billing Data ---
Date of Service October 03, 2021 Coding Level of Care Code D/C DAY MANAGEMENT <30 MINS
[2021-10-04] MEDS ORDERED: ENOXAPARIN 100 MG/1ML SYR SQ SCH
[2021-10-05 07:06] LABS: Anti-Thrombin III Activity 88 % normal (80-135); PTT LA Screen 49 sec (<=40)
[2021-10-05 08:36] LABS: Coag Factor 5 Activity 117 % normal (65-150); Coag Factor 7 Activity 128 % normal (60-150)
[2021-10-05 10:11] LABS: Codeine Urine NEGATIVE ng/mL (<50); Hydrocodone Urine NEGATIVE ng/mL (<50); Hydromor Urine NEGATIVE ng/mL (<50); Morphine Urine 1010 ng/mL (<50); Norhydrocodone Conf Ur NEGATIVE ng/mL (<50); Noroxycodone Urine NEGATIVE ng/mL (<50); Oxycodone Urine NEGATIVE ng/mL (<50); Oxymorph Urine NEGATIVE ng/mL (<50)
[2021-10-08 17:48] LABS: Lupus Hex Phase (Rflxdonotord) Weak Positive (Negative)
[2021-10-09 01:16] LABS: Factor 5 Mutation NEGATIVE
== END 2021-10-03 18:29 | disposition home or self-care (01) | DRG 438 ==
LOC: ED 08:46 → EDINP 12:28 → SUATTDRO 12:28 → EDINP 16:51 → 2N 17:57

== ENCOUNTER 2021-10-10 11:15 | Inpatient (IN) ==
[2021-10-10] MEDS ORDERED: MoRPHine SULFATE 4 MG/ML 1 ML CARP\\VIAL IV STA (11:41)
[2021-10-10] MEDS ORDERED: SODIUM CHLORIDE 0.9% 1000ML 2,000 ML IV ONE (11:41)
[2021-10-10] MEDS ORDERED: VANCOMYCIN HCL 2,000 MG in SODIUM CHLORIDE 0.9% 500 ML IV STA (11:47)
--- NOTE | 2021-10-10 12:51 | Emergency Department Note ---
History of Present Illness General Chief complaint: Infection, Wound Stated complaint: 2 BUBBLES ON BOTH ANKLES/L ANKLE INFECTED History of Present Illness Maximum Pain Intensity: 7 This patient is a pleasant 41-year-old male who presents emergency department with complaints of severe throbbing pain in the left foot that he noticed this morning when he woke up. The patient reports that he suffers from chronic wounds on his foot. He follows with wound care. He denies any fever. No chest pain or shortness of breath reported. The patient is on Lovenox for history of DVTs. He has not taken anything for pain. He reports this morning when he woke up, the blister on the back of heel was draining bloody drainage. He bandaged the wound himself. Home Medications Medication Instructions Recorded Confirmed Type allopurinol 100 mg tablet 100 mg PO DAILY #90 tab 08/26/21 10/10/21 Rx enoxaparin 100 mg/mL subcutaneous 100 mg SUBCUT Q12H 30 Days #60 ml 10/03/21 10/10/21 Rx syringe multivitamin with folic acid 400 1 tab PO QAM 30 Days #30 tab 10/03/21 10/10/21 Rx mcg tablet (Daily-Lisa (with folic acid)) thiamine HCl (vitamin B1) 100 mg 300 mg PO QAM 30 Days #90 tab 10/03/21 10/10/21 Rx tablet (Vitamin B-1) Allergies Allergy/AdvReac Type Severity Reaction Status Date / Time doxycycline Allergy Severe Joint Verified 10/10/21 11:25 Pain, Shortness of breath cephalexin Allergy Mild Rash Verified 10/10/21 11:25 Cipro Allergy Mild throat Verified 06/09/18 08:28 swells ciprofloxacin Allergy Mild throat Verified 10/10/21 11:25 swells 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 LMA #5 Family History Mother FHx: lung cancer Hypertension Breast cancer Brother FHx: testicular cancer Hypertension Father Hypertension Unknown Myocardial infarction Social History Smoking Status: Never smoker Second Hand Exposure: No; Hx Alcohol Use: Yes Alcohol type: hard liquor Alcohol Intake Frequency Comment: daily Hx Substance Use: No Preferred Language: Bruneian Communication Ability: Effective Visual Impairment: No Limitations Dietary Services Manager Required: No Beliefs That Will Affect Care: None marital status: Single Current Living Situation: Family Current Living Situation Comment: [facility] KIDS How many Children do You have: 0 Other Information That Helps Us Care for You: No Feels Safe at Home: Yes Safety Concerns: Feels Safe At This Time Assistive Devices: None Review of Systems A total of 10 systems reviewed and were otherwise negative Physical Exam Vital Signs Vital Signs - 24 hr 10/10/21 11:19 Temperature 37.1 C Temperature Source Oral Pulse Rate 130 H Pulse Rhythm Regular Pulse Strength Normal Respiratory Rate 20 Respiratory Effort / Characteristics Non-Labored Spontaneous Respiratory Depth Normal Respiratory Pattern Regular Blood Pressure 131/91 Blood Pressure Mean 104 Blood Pressure Position Sitting Pulse Oximetry 99 Oxygen Delivery Method Room Air Sepsis Recent Fever Within 48 Hours No Sepsis New/Unexplained Change in Mental Status N/A Sepsis Action Taken by Nursing No Action Required See below Constitutional WD/WN, vitals as above Eyes EOM intact bilaterally ENMT external ear and nose normal, oropharynx normal Neck trachea midline Respiratory normal respiratory effort, lungs clear to auscultation Cardiovascular RRR, no murmur, no edema Gastrointestinal (Abdomen) normal bowel sounds, soft, nontender, no hepatosplenomegaly Musculoskeletal LUE: Approximately 2 cm bullae oozing sanguinous fluid noted to the Achilles region of the left lower extremity. Warmth noted throughout the left foot up into the left calf. DP pulse +2 bilaterally. Dorsiflexion and plantarflexion intact bilaterally. Neurologic Alert and oriented x3. No focal motor deficits. Psychiatric Acting appropriately Course Course Patient was seen and examined Vital signs including blood pressure were reviewed medications list was verified with patient Labs were obtained, and a saline lock was established The case was discussed with my supervising physician who is in agreement with my plan He was started on vancomycin IV in addition to fluids. The patient was given morphine for pain. Imaging was performed and reviewed Upon reevaluation, the patient was more comfortable. We discussed his results. He voiced understanding, and was comfortable with disposition plan The case was discussed with the hospitalist team, who will evaluate him for likely admission Consultations Consultation #1: [facility] hospitalist Administered Medications Allopurinol (Allopurinol 100 Mg Tab) 100 mg PO DAILY [facility] Stop: 11/09/21 20:59 Last Admin: 10/13/21 09:46 Dose: 100 mg Documented by: [id number] Admin: 10/12/21 08:26 Dose: Not Given Documented by: [id number] Admin: 10/11/21 07:50 Dose: 100 mg Documented by: [id number] Admin: 10/10/21 20:18 Dose: 100 mg Documented by: [id number] Docusate Sodium (Docusate Sodium 100 Mg Cap) 100 mg PO BID [facility] Stop: 11/11/21 20:59 Last Admin: 10/13/21 09:46 Dose: 100 mg Documented by: [id number] Admin: 10/12/21 21:52 Dose: 100 mg Documented by: [id number] Enoxaparin Sodium (Enoxaparin 100 Mg/1ml Syr) 100 mg SQ Q12H [facility] Stop: 11/09/21 18:59 Last Admin: 10/11/21 06:01 Dose: 100 mg Documented by: [id number] Admin: 10/10/21 19:59 Dose: 100 mg Documented by: [id number] Hydromorphone HCl (Hydromorphone Inj 0.5 Mg/0.5 Ml Syr) 0.5 mg IV Q4H PRN PRN Reason: Pain or Pre PT Stop: 10/26/21 13:30 Last Admin: 10/12/21 17:57 Dose: 0.5 mg Documented by: [id number] Admin: 10/12/21 14:00 Dose: 0.5 mg Documented by: [id number] Cefepime HCl 2,000 mg/ Syringe 20 mls @ 5 mls/min IV Q8H [facility]; Protocol Stop: 11/21/21 21:59 Last Admin: 10/13/21 06:15 Dose: 5 mls/min Documented by: [id number] Admin: 10/12/21 21:52 Dose: 5 mls/min Documented by: [id number] Admin: 10/12/21 15:13 Dose: 5 mls/min Documented by: [id number] Admin: 10/12/21 05:34 Dose: 5 mls/min Documented by: [id number] Admin: 10/11/21 21:08 Dose: 5 mls/min Documented by: [id number] Admin: 10/11/21 13:20 Dose: 5 mls/min Documented by: [id number] Admin: 10/11/21 05:46 Dose: 5 mls/min Documented by: [id number] Admin: 10/10/21 21:29 Dose: 5 mls/min Documented by: [id number] Vancomycin HCl 750 mg/ Sodium (Chloride) 265 mls @ 200 mls/hr IV Q12H [facility] Stop: 11/21/21 11:59 Last Infusion: 10/13/21 01:35 Dose: 0 mls/hr Documented by: [id number] Admin: 10/13/21 00:12 Dose: 200 mls/hr Documented by: [id number] Infusion: 10/12/21 15:22 Dose: 0 mls/hr Documented by: [id number] Admin: 10/12/21 13:45 Dose: 200 mls/hr Documented by: [id number] Acetaminophen (Ofirmev) 1,000 mg in 100 mls @ 400 mls/hr IV Q8H [facility] Stop: 10/14/21 01:44 Last Infusion: 10/13/21 10:24 Dose: 0 mls/hr Documented by: [id number] Admin: 10/13/21 09:51 Dose: 400 mls/hr Documented by: [id number] Metronidazole (Metronidazole 500 Mg Tab) 500 mg PO TID [facility] Stop: 11/23/21 13:59 Last Admin: 10/13/21 09:46 Dose: 500 mg Documented by: [id number] Admin: 10/12/21 21:52 Dose: 500 mg Documented by: [id number] Admin: 10/12/21 15:12 Dose: 500 mg Documented by: [id number] Multivitamins (Multivitamin Tab) 1 tab PO QAM [facility] Stop: 11/10/21 08:59 Last Admin: 10/13/21 09:46 Dose: 1 tab Documented by: [id number] Admin: 10/12/21 08:26 Dose: Not Given Documented by: [id number] Admin: 10/11/21 07:50 Dose: 1 tab Documented by: [id number] Ondansetron HCl (Ondansetron Inj 2 Mg/Ml 2 Ml Vial) 4 mg IV Q6H PRN PRN Reason: Nausea Stop: 11/09/21 18:01 Last Admin: 10/13/21 06:34 Dose: 4 mg Documented by: [id number] Admin: 10/13/21 00:35 Dose: 4 mg Documented by: [id number] Sennosides (Senna 8.6 Mg Tab) 17.2 mg PO HS [facility] Stop: 11/11/21 20:59 Last Admin: 10/12/21 21:52 Dose: 17.2 mg Documented by: [id number] Thiamine HCl (Thiamine Hcl 100 Mg Tab) 300 mg PO QAM [facility] Stop: 11/10/21 08:59 Last Admin: 10/13/21 09:46 Dose: 300 mg Documented by: [id number] Admin: 10/12/21 08:26 Dose: Not Given Documented by: [id number] Admin: 10/11/21 07:50 Dose: 300 mg Documented by: [id number] Discontinued Medications Bupivacaine HCl (Bupivacaine 0.5 % 5 Mg/1 Ml Mpf 30ml Vial) Confirm Administered Dose 60 ml .ROUTE .STK-MED ONE Stop: 10/12/21 10:45 Last Admin: 10/12/21 12:28 Dose: 8 ml Documented by: [id number] Cefazolin Sodium (Cefazolin 250 Mg/Ml 1 Gm Vial) Confirm Administered Dose 2,000 mg .ROUTE .STK-MED ONE Stop: 10/12/21 10:45 Last Admin: 10/12/21 12:14 Dose: 2,000 mg Documented by: [id number] Fentanyl Citrate (Fentanyl Citrate 100 Mcg/2 Ml Vial) 50 mcg IV Q5M PRN PRN Reason: PACU Use Only-Pain Stop: 10/12/21 16:53 Last Admin: 10/12/21 13:01 Dose: 50 mcg Documented by: [id number] Admin: 10/12/21 12:56 Dose: 50 mcg Documented by: [id number] Admin: 10/12/21 12:50 Dose: 50 mcg Documented by: [id number] Admin: 10/12/21 12:45 Dose: 50 mcg Documented by: [id number] Gadobutrol (Gadobutrol 65ml Vial) 9 ml IV ONCE ONE Stop: 10/11/21 17:48 Last Admin: 10/11/21 17:47 Dose: 9 ml Documented by: [id number] Gentamicin Sulfate (Gentamicin Sulfate 40 Mg/Ml 2 Ml Vial) Confirm Administered Dose 160 mg .ROUTE .STK-MED ONE Stop: 10/12/21 11:29 Last Admin: 10/12/21 11:54 Dose: 160 mg Documented by: [id number] Sodium Chloride (Nss 1000ml) 2,000 mls @ 999 mls/hr IV .Q2H1M ONE Stop: 10/10/21 13:41 Last Infusion: 10/10/21 18:25 Dose: 0 mls/hr Documented by: [id number] Admin: 10/10/21 12:32 Dose: 999 mls/hr Documented by: [id number] Vancomycin HCl 2,000 mg/ (Sodium Chloride) 540 mls @ 200 mls/hr IV NOW STA Stop: 10/10/21 14:28 Last Infusion: 10/10/21 18:26 Dose: 0 mls/hr Documented by: [id number] Admin: 10/10/21 13:31 Dose: 200 mls/hr Documented by: [id number] Cefepime HCl (Maxipime) 2,000 mg in 20 mls @ 5 mls/min IV NOW STA; Protocol Stop: 10/10/21 13:29 Last Admin: 10/10/21 14:32 Dose: 5 mls/min Documented by: [id number] Vancomycin HCl 1,000 mg/ (Sodium Chloride) 270 mls @ 200 mls/hr IV Q12H [facility]; Protocol Stop: 11/21/21 19:59 Last Infusion: 10/12/21 12:27 Dose: 0 mls/hr Documented by: [id number] Admin: 10/12/21 08:48 Dose: 200 mls/hr Documented by: [id number] Infusion: 10/11/21 21:07 Dose: 0 mls/hr Documented by: [id number] Admin: 10/11/21 19:36 Dose: 200 mls/hr Documented by: [id number] Infusion: 10/11/21 09:22 Dose: 0 mls/hr Documented by: [id number] Admin: 10/11/21 07:37 Dose: 200 mls/hr Documented by: [id number] Infusion: 10/10/21 21:30 Dose: 0 mls/hr Documented by: [id number] Admin: 10/10/21 19:59 Dose: 200 mls/hr Documented by: [id number] Sodium Chloride (Nss 1000ml) 1,000 mls @ 100 mls/hr IV .Q10H [facility] Stop: 10/13/21 06:00 Last Infusion: 10/13/21 10:36 Dose: 0 mls/hr Documented by: [id number] Admin: 10/13/21 00:14 Dose: 100 mls/hr Documented by: [id number] Infusion: 10/13/21 00:04 Dose: 100 mls/hr Documented by: [id number] Admin: 10/12/21 14:04 Dose: 100 mls/hr Documented by: [id number] Prochlorperazine 5 mg/ Syringe 5 mls @ 5 mls/min IV ONE ONE Stop: 10/13/21 09:46 Last Admin: 10/13/21 10:24 Dose: 5 mls/min Documented by: [id number] Ketorolac Tromethamine (Ketorolac 30 Mg/Ml Vial) 30 mg IV NOW ONE Stop: 10/13/21 09:26 Last Admin: 10/13/21 09:50 Dose: 30 mg Documented by: [id number] Metronidazole (Metronidazole 500 Mg Tab) 500 mg PO NOW STA Stop: 10/10/21 13:27 Last Admin: 10/10/21 13:59 Dose: 500 mg Documented by: [id number] Metronidazole (Metronidazole 500 Mg Tab) 500 mg PO BID [facility] Stop: 11/21/21 20:59 Last Admin: 10/12/21 08:26 Dose: Not Given Documented by: [id number] Admin: 10/11/21 21:08 Dose: 500 mg Documented by: [id number] Admin: 10/11/21 07:50 Dose: 500 mg Documented by: [id number] Admin: 10/10/21 21:29 Dose: 500 mg Documented by: [id number] Miscellaneous (*Vanco*Stop Order) 1 ea N/A ONE ONE Stop: 10/12/21 09:01 Last Admin: 10/12/21 12:28 Dose: 1 ea Documented by: [id number] Morphine Sulfate (Morphine Sulfate 4 Mg/Ml 1 Ml Carp\Vial) 4 mg IV NOW STA Stop: 10/10/21 11:42 Last Admin: 10/10/21 13:15 Dose: 4 mg Documented by: [id number] Morphine Sulfate (Morphine Sulfate 2 Mg/Ml Carp) 1 mg IV Q4H PRN PRN Reason: Severe Pain Stop: 10/24/21 19:56 Last Admin: 10/11/21 18:31 Dose: 1 mg Documented by: [id number] Admin: 10/11/21 05:58 Dose: 1 mg Documented by: [id number] Oxycodone HCl (Oxycodone Hcl Ir 5 Mg Tab (Immediate Release)) 5 - 10 mg PO Q4H PRN PRN Reason: Pain or Pre PT Stop: 10/26/21 13:30 Last Admin: 10/12/21 15:10 Dose: 10 mg Documented by: [id number] Potassium Chloride (Potassium Chloride Crtab 20 Meq Tabcr) 40 meq PO NOW STA Stop: 10/10/21 13:28 Last Admin: 10/10/21 13:59 Dose: 40 meq Documented by: [id number] Tramadol HCl (Tramadol Hcl 50 Mg Tablet) 50 mg PO NOW STA Stop: 10/10/21 19:56 Last Admin: 10/10/21 20:17 Dose: 50 mg Documented by: [id number] Vancomycin HCl (Vancomycin Hcl 1000mg/20ml Vial) Confirm Administered Dose 100 mg .ROUTE .STK-MED ONE Stop: 10/12/21 11:29 Last Admin: 10/12/21 11:54 Dose: 100 mg Documented by: [id number] Medical Decision Making Medical Records Attestation: I reviewed the patient's medical records. Home Medications Current Medication List: was personally reviewed by me Laboratory Data Attestation: I reviewed the patient's lab results. Result diagrams: 10/13/21 07:48 10/13/21 07:48 Lab Results 10/10/21 10/10/21 10/10/21 Range/Units 12:20 12:20 12:20 WBC 10.65 (4.8-10.8) K/uL RBC 3.15 L (4.7-6.1) M/uL Hgb 11.2 L (14.0-18.0) g/dL Hct 33.7 L (42-52) % MCV 107.0 H (80-100) fL MCH 35.6 H (25-34) pg MCHC 33.2 (32-36) g/dL RDW Std Deviation 54.7 H (36.4-46.3) fL RDW Coeff of Machelle 14.0 (11.5-14.5) % Plt Count 515 H (130-400) K/uL MPV 8.7 (7.4-10.4) fL Immature Gran % (Auto) 0.2 % Neut % (Auto) 65.4 % Lymph % (Auto) 14.5 % Horry % (Auto) 8.4 % Eos % (Auto) 10.8 % Baso % (Auto) 0.7 % Neut # (Auto) 6.98 H (1.4-6.5) K/uL Lymph # (Auto) 1.54 (1.2-3.4) K/uL Horry # (Auto) 0.89 H (0.11-0.59) K/uL Eos # (Auto) 1.15 H (0-0.5) K/uL Baso # (Auto) 0.07 (0-0.2) K/uL Immature Gran # (Auto) 0.02 (0.00-0.02) K/uL PT (9.0-12.0) Seconds INR (0.9-1.1) APTT (21.0-31.0) Seconds PTT Ratio Sodium 140 (136-145) mmol/L Potassium 3.2 L (3.5-5.1) mmol/L Chloride 108 H (98-107) mmol/L Carbon Dioxide 25 (21-32) mmol/L Anion Gap 8.0 (3-11) BUN 9 (7-18) mg/dl Creatinine 1.24 (0.6-1.4) mg/dl Est Cr Clr Drug Dosing Not Reportable Est GFR ( Amer) 82.0 ml/min Est GFR (Non-Af Amer) 70.8 ml/min BUN/Creatinine Ratio 7.6 L (10-20) Glucose 93 (70-99) mg/dl Lactate (0.4-2.0) mmol/L Calcium 8.7 (8.5-10.1) mg/dl Total Bilirubin 0.5 (0.2-1) mg/dl AST 33 (15-37) U/L ALT 20 (12-78) Alkaline Phosphatase 170 H (45-117) U/L Total Protein 7.7 (6.4-8.2) gm/dl Albumin 2.6 L (3.4-5.0) gm/dl Globulin 5.1 H (2.5-4.0) gm/dl Albumin/Globulin Ratio 0.5 L (0.9-2) Procalcitonin 0.14 (0-0.5) ng/ml SARS-CoV-2, RNA, NAAT (NEGATIVE) 10/10/21 10/10/21 10/10/21 Range/Units 12:20 12:28 13:50 WBC (4.8-10.8) K/uL RBC (4.7-6.1) M/uL Hgb (14.0-18.0) g/dL Hct (42-52) % MCV (80-100) fL MCH (25-34) pg MCHC (32-36) g/dL RDW Std Deviation (36.4-46.3) fL RDW Coeff of Machelle (11.5-14.5) % Plt Count (130-400) K/uL MPV (7.4-10.4) fL Immature Gran % (Auto) % Neut % (Auto) % Lymph % (Auto) % H[place] % (Auto) % Eos % (Auto) % Baso % (Auto) % Neut # (Auto) (1.4-6.5) K/uL Lymph # (Auto) (1.2-3.4) K/uL H[place] # (Auto) (0.11-0.59) K/uL Eos # (Auto) (0-0.5) K/uL Baso # (Auto) (0-0.2) K/uL Immature Gran # (Auto) (0.00-0.02) K/uL PT 11.5 (9.0-12.0) Seconds INR 1.1 (0.9-1.1) APTT 30.8 (21.0-31.0) Seconds PTT Ratio 1.2 Sodium (136-145) mmol/L Potassium (3.5-5.1) mmol/L Chloride (98-107) mmol/L Carbon Dioxide (21-32) mmol/L Anion Gap (3-11) BUN (7-18) mg/dl Creatinine (0.6-1.4) mg/dl Est Cr Clr Drug Dosing Est GFR ( Amer) ml/min Est GFR (Non-Af Amer) ml/min BUN/Creatinine Ratio (10-20) Glucose (70-99) mg/dl Lactate 1.4 (0.4-2.0) mmol/L Calcium (8.5-10.1) mg/dl Total Bilirubin (0.2-1) mg/dl AST (15-37) U/L ALT (12-78) Alkaline Phosphatase (45-117) U/L Total Protein (6.4-8.2) gm/dl Albumin (3.4-5.0) gm/dl Globulin (2.5-4.0) gm/dl Albumin/Globulin Ratio (0.9-2) Procalcitonin (0-0.5) ng/ml SARS-CoV-2, RNA, NAAT NEGATIVE (NEGATIVE) Imaging Data Attestation: I personally reviewed and interpreted this imaging study as foll ows: MDM Narrative Differential diagnosis: Abscess, cellulitis, sepsis, dehydration, electrolyte abnormality, osteomyelitis, foreign body, among others were considered This patient is a pleasant 41-year-old male who presents emergency department with a blister to the back of the left foot. On exam, he does have what appears to be cellulitis in addition to an abscess. Vital signs revealed tachycardia. Blood pressure was stable. The patient was treated with fluids and antibiotics. X-rays are consistent with osteomyelitis. For this reason, I believe the patient should likely be admitted for IV antibiotics and definitive treatment. He was in agreement. He remained stable in the emergency department. Impression & Plan Cellulitis, Osteomyelitis Discharge Plan Visit Data Chief Complaint: Infection, Wound Stated Complaint: 2 BUBBLES ON BOTH ANKLES/L ANKLE INFECTED ED Midlevel Provider: Tanvi Butt Discharge Problem: Cellulitis, Osteomyelitis Patient Disposition: Admitted As Inpatient Discharge Instructions Interventions: ED Discharge Assessment Last Done: 10/10/21 18:17
[2021-10-10 13:00] LABS: Basophils # (auto) 0.07 K/uL (0-0.2); Basophils % (auto) 0.7 %; Eosinophils # (auto) 1.15 K/uL (0-0.5); Eosinophils % (auto) 10.8 %; Hematocrit (blood only) 33.7 % (42-52); Hemoglobin 11.2 g/dL (14.0-18.0); Immature Granulocytes # (auto) 0.02 K/uL (0.00-0.02); Immature Granulocytes % (auto) 0.2 %; Lymphocytes # (auto) 1.54 K/uL (1.2-3.4); Lymphocytes % (auto) 14.5 %; Mean Corpuscular Hemoglobin 35.6 pg (25-34); Mean Corpuscular Hgb Conc 33.2 g/dL (32-36); Mean Platelet Volume 8.7 fL (7.4-10.4); Monocytes # (auto) 0.89 K/uL (0.11-0.59); Monocytes % (auto) 8.4 %; Neutrophils # (auto) 6.98 K/uL (1.4-6.5); Neutrophils % (auto) 65.4 %; Platelet Count 515 K/uL (130-400); RDW Standard Deviation 54.7 fL (36.4-46.3); Red Blood Count 3.15 M/uL (4.7-6.1); White Blood Count 10.65 K/uL (4.8-10.8)
--- NOTE | 2021-10-10 13:10 | XRay Report ---
XR ankle LT min 3V routine, XR foot LT min 3V routine HISTORY: Posterior ankle abscess r/o osteomyelitis. Left foot swelling. COMPARISON STUDY: Left foot radiograph 08/20/2021. FINDINGS: Soft tissue gas adjacent to the fifth metatarsal has resolved in the interval. No acute fra cture or dislocation within the left ankle or left foot. The Lisfranc joint is intact. Dorsal soft ti ssue swelling within the forefoot has slightly improved. Best seen on the lateral view there appear t o be focal cortical destruction at the dorsal base of the left fifth toe proximal phalanx. This is ne w from the prior study and likely represents focal area of osteomyelitis. Degenerative changes at the talonavicular joint again noted. Small plantar and posterior calcaneal spurs. 3.2 cm focal skin ulce ration along the medial malleolus. Focal soft tissue swelling with possible skin blister at the poste rior ankle. No bony destruction within the ankle to suggest an osteomyelitis. The bones are osteopeni c. IMPRESSION: 1. Small focal area of cortical destruction at the dorsal base of the left fifth toe proximal phalanx . This is new from the prior study and likely represents osteomyelitis. 2. A 3.2 cm skin ulceration at the medial malleolus. No underlying bony destruction. 3. Focal soft tissue swelling at the posterior ankle with a probable skin blister. ACT 112: Negative or not required by law. Electronically signed by: Omar Duque M.D. 10/10/2021 1:08 PM
[2021-10-10 13:13] LABS: INR 1.1 (0.9-1.1); Partial Thromboplastin Ratio 1.2; Partial Thromboplastin Time 30.8 Seconds (21.0-31.0); Prothrombin Time 11.5 Seconds (9.0-12.0)
[2021-10-10 13:20] LABS: Alanine Aminotransferase 20 (12-78); Albumin Level 2.6 gm/dl (3.4-5.0); Aspartate Aminotransferase 33 U/L (15-37); BUN Creatinine Ratio 7.6 (10-20); Blood Urea Nitrogen 9 mg/dl (7-18); Calcium 8.7 mg/dl (8.5-10.1); Carbon Dioxide 25 mmol/L (21-32); Chloride 108 mmol/L (98-107); Est GFR (Non-African American) 70.8 ml/min; Glucose 93 mg/dl (70-99); Potassium 3.2 mmol/L (3.5-5.1); Sodium 140 mmol/L (136-145)
[2021-10-10 13:23] LABS: Albumin Globulin Ratio 0.5 (0.9-2); Alkaline Phosphatase 170 U/L (45-117); Bilirubin,Total 0.5 mg/dl (0.2-1); Globulin 5.1 gm/dl (2.5-4.0); Total Protein 7.7 gm/dl (6.4-8.2)
[2021-10-10] MEDS ORDERED: CEFEPIME 2,000 MG/20 ML VIAL IV STA (13:26)
[2021-10-10] MEDS ORDERED: metroNIDAZOLE 500 MG TAB PO STA (13:26)
[2021-10-10] MEDS ORDERED: POTASSIUM CHLORIDE CRTAB 20 MEQ TABCR PO STA (13:27)
--- NOTE | 2021-10-10 15:03 | History & Physical Report ---
Date of Service October 10, 2021 Assessment & Plan (1) Venous stasis ulcer of left lower leg with edema of left lower leg: Plan: Mr. Sharif is a 41 year old male with a history of a Pancreatic Mass (Pseudocyst), Portal Venous Thrombosis, Stage IV CKD, Secondary Hyper parathyroidism, MVP with Moderate MR, Pancreatitis, Alcohol Use Disorder, Chronic Venous Insufficiency, Chronic Venous Stasis Ulcers/Wounds, and a Coagulopathy (on chronic Lovenox, failed on Eliquis) -- who presented to the ER to after awakening with a severe throbbing pain in his left foot that he noticed when he woke up. He noticed a large blister over top his left Achilles tendon ruptured and bled and continues to ooze blood at this point. An x-ray was done of his left foot and ankle and suggested an osteomyelitis at the dorsal base of the left 5th toe proximal phalanx. With evidence of osteomyelitis and a probable left leg cellulitis patient is being admitted for IV antibiotics. Recommend the following: -- Admit to Med Surg. -- IV Vancomycin. -- IV Cefepime. -- Oral Metronidazole. -- Consult orthopedic surgery for osteomyelitis. (2) Cellulitis: Plan: -- Manage as outlined above. (3) Osteomyelitis of ankle or foot, left, acute: Plan: Left Foot and Ankle X-ray shows osteomyelitis at the dorsal base of the left 5th toe proximal phalanx. -- Antibiotics and Ortho Consult as outlined above. (4) Portal vein thrombosis: Plan: History of Portal Vein Thrombosis which is likely the result of his Coagulopathy and Pancreatic Pseudocyst compressing the venous structures. -- This is likely contributing to his chronic venous insufficiency as well. -- Patient failed on Eliquis in the past. -- He is now chronically anticoagulated with Lovenox. (5) Coagulopathy: Plan: -- Patient failed on Eliquis in the past. -- He is now chronically anticoagulated with Lovenox. (6) Chronic kidney disease with symptom management only, stage 4 (severe): Plan: -- Monitor daily labs. -- Avoid dehydration. -- Avoid nephrotoxic drugs. History of Present Illness Chief Complaint: -- Chronic B/L Leg Wounds. -- LLE Cellulitis. -- Osteomyelitis at dorsal base of the left 5th toe proximal phalanx. -- Chronic Venous Insufficiency. -- History of DVT's. Primary Care Provider: Jaja Cali MD Mr. Sharif is a 41 year old male with a history of a Pancreatic Mass (Pseudocyst), Portal Venous Thrombosis, Stage IV CKD, Secondary Hyperparathyroidism, MVP with Moderate MR, Pancreatitis, Alcohol Use Disorder, Chronic Venous Insufficiency, Chronic Venous Stasis Ulcers/Wounds, and a Coagulopathy (on chronic Lovenox, failed on Eliquis) -- who presented to the ER to after awakening with a severe throbbing pain in his left foot that he noticed when he woke up. He noticed a large blister over top his left Achilles tendon ruptured and bled and continues to ooze blood at this point. An x-ray was done of his left foot and ankle and suggested an osteomyelitis at the dorsal base of the left 5th toe proximal phalanx. With evidence of osteomyelitis and a probable left leg cellulitis patient is being admitted for IV antibiotics. Patient denies any fever, chills, rigors. He has not had any unusual swelling of either leg recently. Please note the patient does follow with [facility] and he has been seen by Dr. Ghosh in the past. Allergies Allergy/AdvReac Type Severity Reaction Status Date / Time doxycycline Allergy Severe Joint Verified 10/10/21 11:25 Pain, Shortness of breath cephalexin Allergy Mild Rash Verified 10/10/21 11:25 Cipro Allergy Mild throat Verified 06/09/18 08:28 swells ciprofloxacin Allergy Mild throat Verified 10/10/21 11:25 swells Home Medications Medication Instructions Recorded Confirmed Type allopurinol 100 mg tablet 100 mg PO DAILY #90 tab 08/26/21 10/10/21 Rx enoxaparin 100 mg/mL subcutaneous 100 mg SUBCUT Q12H 30 Days #60 ml 10/03/21 10/10/21 Rx syringe multivitamin with folic acid 400 1 tab PO QAM 30 Days #30 tab 10/03/21 10/10/21 Rx mcg tablet (Daily-Lisa (with folic acid)) thiamine HCl (vitamin B1) 100 mg 300 mg PO QAM 30 Days #90 tab 10/03/21 10/10/21 Rx tablet (Vitamin B-1) 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 LMA #5 Family History Mother FHx: lung cancer Hypertension Breast cancer Brother FHx: testicular cancer Hypertension Father Hypertension Unknown Myocardial infarction Social History Smoking Status: Never smoker Second Hand Exposure: No; Hx Alcohol Use: Yes Alcohol type: hard liquor Alcohol Intake Frequency Comment: daily Hx Substance Use: No Preferred Language: Faroese Communication Ability: Effective Visual Impairment: No Limitations Floorman Required: No Beliefs That Will Affect Care: None marital status: Single Current Living Situation: Family Current Living Situation Comment: [facility] AND KIDS How many Children do You have: 0 Other Information That Helps Us Care for You: No Feels Safe at Home: Yes Safety Concerns: Feels Safe At This Time Assistive Devices: None Review of Systems Review of Systems: A total of 10 systems reviewed and were otherwise negative. Physical Exam Physical Exam: GENERAL: Patient in no acute distress. HEENT: Head is atraumatic, normocephalic. Sclerae anicteric. EOM's intact. Facies symmetric. No perioral cyanosis. NECK: No JVD. JVP is not elevated. Carotid upstrokes are + 2 bilaterally without obvious bruits. CHEST/LUNGS: Clear to auscultation throughout all lung thornton. No wheezes, rales, or crackles. CVS: S1 and S2 are regular without obvious murmurs, gallops, or rubs. PMI is nondisplaced. No lifts, heaves, or thrills. No abdominal aortic or renal bruits. ABDOMINAL EXAM: Bowel sounds are present. No masses, organomegaly, or tenderness. EXTREMITIES: Pigmentation changes present in bilateral legs and feet. 2 cm bullae oozing sanguinous fluid noted over the Achilles region of the left lower extremity. Warmth noted throughout the left foot up into the left calf. No clubbing or cyanosis. No edema. Intact dorsalis pedis and radial pulses bilaterally. NEUROLOGIC EXAM: Patient is awake, alert, and oriented. Pleasant and cooperative. Answers questions appropriately. Speech is clear. Normal movement in all 4 extremities. Gait pattern was not assessed. Results & Data Results & Data ([facility]) Vital Signs (Past 12 Hours) Vital Signs Temp Pulse Pulse Resp BP BP Pulse Ox 10/10/21 13:34 88 20 141/100 H 96 10/10/21 11:19 37.1 C 130 H 20 131/91 99 Laboratory Results Laboratory Results - last 24 hr 10/10/21 10/10/21 10/10/21 12:20 12:20 12:20 WBC 10.65 RBC 3.15 L Hgb 11.2 L Hct 33.7 L MCV 107.0 H MCH 35.6 H MCHC 33.2 RDW Std Deviation 54.7 H RDW Coeff of Machelle 14.0 Plt Count 515 H MPV 8.7 Immature Gran % (Auto) 0.2 Neut % (Auto) 65.4 Lymph % (Auto) 14.5 Robeson % (Auto) 8.4 Eos % (Auto) 10.8 Baso % (Auto) 0.7 Neut # (Auto) 6.98 H Lymph # (Auto) 1.54 Robeson # (Auto) 0.89 H Eos # (Auto) 1.15 H Baso # (Auto) 0.07 Immature Gran # (Auto) 0.02 PT INR APTT PTT Ratio Sodium 140 Potassium 3.2 L Chloride 108 H Carbon Dioxide 25 Anion Gap 8.0 BUN 9 Creatinine 1.24 Est Cr Clr Drug Dosing Not Reportable Est GFR ( Amer) 82.0 Est GFR (Non-Af Amer) 70.8 BUN/Creatinine Ratio 7.6 L Glucose 93 Lactate Calcium 8.7 Total Bilirubin 0.5 AST 33 ALT 20 Alkaline Phosphatase 170 H Total Protein 7.7 Albumin 2.6 L Globulin 5.1 H Albumin/Globulin Ratio 0.5 L Procalcitonin 0.14 SARS-CoV-2, RNA, NAAT 10/10/21 10/10/21 10/10/21 12:20 12:28 13:50 WBC RBC Hgb Hct MCV MCH MCHC RDW Std Deviation RDW Coeff of [place] Plt Count MPV Immature Gran % (Auto) Neut % (Auto) Lymph % (Auto) Robeson % (Auto) Eos % (Auto) Baso % (Auto) Neut # (Auto) Lymph # (Auto) Robeson # (Auto) Eos # (Auto) Baso # (Auto) Immature Gran # (Auto) PT 11.5 INR 1.1 APTT 30.8 PTT Ratio 1.2 Sodium Potassium Chloride Carbon Dioxide Anion Gap BUN Creatinine Est Cr Clr Drug Dosing Est GFR ( Amer) Est GFR (Non-Af Amer) BUN/Creatinine Ratio Glucose Lactate 1.4 Calcium Total Bilirubin AST ALT Alkaline Phosphatase Total Protein Albumin Globulin Albumin/Globulin Ratio Procalcitonin SARS-CoV-2, RNA, NAAT NEGATIVE Diagnostic Findings X-RAY LEFT ANKLE & FOOT 10/10/21: Soft tissue gas adjacent to the fifth metatarsal has resolved in the interval. No acute fracture or dislocation within the left ankle or left foot. The Lisfranc joint is intact. Dorsal soft tissue swelling within the forefoot has slightly improved. Best seen on the lateral view there appear to be focal cortical destruction at the dorsal base of the left fifth toe proximal phalanx. This is new from the prior study and likely represents focal area of osteomyelitis. Degenerative changes at the talonavicular joint again noted. Small plantar and posterior calcaneal spurs. 3.2 cm focal skin ulceration along the medial malleolus. Focal soft tissue swelling with possible skin blister at the posterior ankle. No bony destruction within the ankle to suggest an osteomyelitis. The bones are osteopenic. IMPRESSION: 1. Small focal area of cortical destruction at the dorsal base of the left fifth toe proximal phalanx. This is new from the prior study and likely represents osteomyelitis. 2. A 3.2 cm skin ulceration at the medial malleolus. No underlying bony destruction. 3. Focal soft tissue swelling at the posterior ankle with a probable skin blister. Medications Administered Medications allopurinol 100 mg tablet 100 mg PO DAILY #90 tab 08/26/21 [Rx Confirmed ] enoxaparin 100 mg/mL subcutaneous syringe 100 mg SUBCUT Q12H 30 Days #60 ml 10/03/21 [Rx Confirmed 10/10/21] multivitamin with folic acid 400 mcg tablet (Daily-Lisa (with folic acid)) 1 tab PO QAM 30 Days #30 tab 10/03/21 [Rx Confirmed 10/10/21] thiamine HCl (vitamin B1) 100 mg tablet (Vitamin B-1) 300 mg PO QAM 30 Days #90 tab 10/03/21 [Rx Confirmed 10/10/21] Code Status & VTE Plan Code Status Full Code VTE Prophylaxis Plan VTE Prophylaxis will be ordered: Yes Supervising Physician Co-Signing Physician Notes Patient seen and examined at bedside. Obtained a history and physical exam during face to face encounter. Discussed plan of care with APC Paula and patient. Reviewed above note and agree with it. Patient admitted with possible osteomyelitis. Will place on IV antibiotics and consult ortho. PG Care Time/CCT Total # of Minutes Spent Total Time Spent with Patient: Total time spent is greater than 50% in coordination of care (as documented) at patient's floor/unit and/or counseling patient:35 Coding Level of Care Code 22355 Initial Inpt Care Lvl 3 Diagnoses Venous stasis ulcer of left lower leg with edema of left lower leg I83.029; I83.892; L97.929; R60.9 Cellulitis L03.90 Osteomyelitis of ankle or foot, left, acute M86.172 Portal vein thrombosis I81 Coagulopathy D68.9 Chronic kidney disease with symptom management only, stage 4 (severe) N18.4 Time Spent (min) 55
[2021-10-10] MEDS ORDERED: MAGNESIUM HYDROXIDE SUSP 30 ML UDC PO PRN (18:02)
[2021-10-10] MEDS ORDERED: ALUMINUM/MAGNESIUM SUSP 30 ML UDC PO PRN (18:02)
[2021-10-10] MEDS ORDERED: ZOLPIDEM TARTRATE 5 MG TAB PO PRN (18:02)
[2021-10-10] MEDS ORDERED: POLYETHYLENE (MIRALAX) 17 GM PACK PO PRN (18:02)
[2021-10-10] MEDS ORDERED: VANCOMYCIN CONSULT ACTIVE PRN (18:02)
[2021-10-10] MEDS ORDERED: ACETAMINOPHEN 325 MG TAB PO PRN (18:02)
--- NOTE | 2021-10-10 19:04 | Pharmacy Report ---
Pharmacy Abx Initial Consult - Date of Service October 10, 2021 - Pharmacy Dosing Scope Date of Consult: 10/10/21 Consultation requested by:Elie Mitchell Pharmacy is consulted to initiate Vancomycin IV dosing therapy, order appropriate labs and adjust drug dose/frequency. - Subjective The patient is a 41 year old M admitted on 10/10/21 14:54 with osteomyelitis at the dorsal base of the left 5th toe proximal phalanx + probable left leg cellulitis. PMH:Pancreatic Mass (Pseudocyst), Portal Venous Thrombosis, Stage IV CKD, Secondary Hyperparathyroidism, MVP with Moderate MR, Pancreatitis, Alcohol Use Disorder, Chronic Venous Insufficiency, Chronic Venous Stasis Ulcers/Wounds, and a Coagulopathy (on chronic Lovenox, failed on Eliquis) - Objective Height: 6 ft 4 in Weight: 94.2 kg Vital Signs (Past 12hrs): Vital Signs Temp Pulse Pulse Resp BP BP Pulse Ox 10/10/21 18:03 36.5 C 102 H 18 128/90 97 10/10/21 15:43 89 18 161/108 H 97 10/10/21 13:34 88 20 141/100 H 96 10/10/21 11:19 37.1 C 130 H 20 131/91 99 Lab Results (24hrs): Laboratory Tests (24 Hours) 10/10/21 10/10/21 10/10/21 12:20 12:20 12:20 WBC 10.65 Neut # (Auto) 6.98 H Creatinine 1.24 Est Cr Clr Drug Dosing Not Reportable Procalcitonin 0.14 Micro Results: 10/10/21 12:00 Gram Stain - Pending Foot Aerobic and Anaerobic Culture - Pending 10/10/21 12:20 Aerobic Blood Culture - Pending Blood Anaerobic Blood Culture - Pending 10/10/21 12:20 Aerobic Blood Culture - Pending Blood Anaerobic Blood Culture - Pending - Assessment & Plan Assessment + PLAN Vancomycin, Cefepime, metronidazole for treatment of osteomyelitis + cellulitis Blood and foot cultures pending WBC + Procal WNL Afebrile Vancomycin IV * Loading dose: 2000 mg received in ER * AUC/RENAN is the preferred PK/PD target for vancomycin * AUC guided dosing is effective and associated with decreased risk of nephrotoxicity compared to traditional trough targets * Maintenance dose: 1000 mg IV q12h is predicted to achieve target AUC/RENAN of 400-600 mg/L.hr and may be associated with a 12 % risk of nephrotoxicity * Trough level ordered for 10/12/21 Cefepime 2g IV Q8H Metronidazole 500mg PO BID Pharmacy will continue to follow and will adjust dose/frequency as necessary. Thank you.
[2021-10-10] MEDS ORDERED: traMADol HCL 50 MG TABLET PO STA (19:55)
[2021-10-10] MEDS: VANCOMYCIN HCL 1,000 MG in SODIUM CHLORIDE 0.9% 250 ML IV SCH (19:59)
[2021-10-10] MEDS: ENOXAPARIN 100 MG/1ML SYR SQ SCH (19:59)
[2021-10-10] MEDS: allopurinoL 100 MG TAB PO SCH (20:18)
[2021-10-10] MEDS: CEFEPIME 2,000 MG in SYRINGE 0 ML IV SCH (21:29)
[2021-10-10] MEDS: metroNIDAZOLE 500 MG TAB PO SCH (21:29)
[2021-10-11] MEDS: CEFEPIME 2,000 MG in SYRINGE 0 ML IV SCH ×3 (05:46→21:08)
[2021-10-11] MEDS: MoRPHine SULFATE 2 MG/ML CARP IV PRN ×2 (05:58→18:31)
[2021-10-11] MEDS: ENOXAPARIN 100 MG/1ML SYR SQ SCH (06:01)
[2021-10-11 06:25] LABS: Basophils # (auto) 0.06 K/uL (0-0.2); Basophils % (auto) 0.6 %; Eosinophils % (auto) 14.9 %; Hematocrit (blood only) 28.4 % (42-52); Hemoglobin 9.1 g/dL (14.0-18.0); Immature Granulocytes # (auto) 0.01 K/uL (0.00-0.02); Immature Granulocytes % (auto) 0.1 %; Lymphocytes # (auto) 1.41 K/uL (1.2-3.4); Mean Corpuscular Hemoglobin 34.7 pg (25-34); Mean Corpuscular Volume 108.4 fL (80-100); Mean Platelet Volume 8.6 fL (7.4-10.4); Monocytes # (auto) 0.93 K/uL (0.11-0.59); Monocytes % (auto) 9.9 %; Neutrophils % (auto) 59.5 %; Platelet Count 432 K/uL (130-400); RDW Coefficient of Variation 14.1 % (11.5-14.5); RDW Standard Deviation 56.4 fL (36.4-46.3); Red Blood Count 2.62 M/uL (4.7-6.1); White Blood Count 9.41 K/uL (4.8-10.8)
[2021-10-11 06:57] LABS: BUN Creatinine Ratio 8.7 (10-20); Calcium 8.1 mg/dl (8.5-10.1); Creatinine Clr Calc Pharmacy 98.3 ml/min; Est GFR (African American) 86.2 ml/min; Est GFR (Non-African American) 74.4 ml/min; Potassium 3.7 mmol/L (3.5-5.1)
[2021-10-11] MEDS: VANCOMYCIN HCL 1,000 MG in SODIUM CHLORIDE 0.9% 250 ML IV SCH ×2 (07:37→19:36)
[2021-10-11] MEDS: allopurinoL 100 MG TAB PO SCH (07:50)
[2021-10-11] MEDS: metroNIDAZOLE 500 MG TAB PO SCH ×2 (07:50→21:08)
[2021-10-11] MEDS: THIAMINE HCL 100 MG TAB PO SCH (07:50)
[2021-10-11] MEDS: MULTIVITAMIN TAB PO SCH (07:50)
--- NOTE | 2021-10-11 17:32 | Anesthesiology Consultation ---
Date of Service October 11, 2021 Assessment & Plan (1) Encounter for pre-operative examination: Chart Review Chart Review: Acceptable Risk for Surgery (necessary surgery) and Patient NOT seen in Pre Admission Testing Consults Requested none History Surgery Operation Date: 10/12/21 09:05 Proposed Procedures p Left Foot Incision and Drainage of Diabetic Ulcer, Possible 5th Toe Amputation - Jose A Ghosh DO Height/Weight Height: 6 ft 4 in Weight: 94.2 kg Allergies Allergy/AdvReac Type Severity Reaction Status Date / Time doxycycline Allergy Severe Joint Verified 10/10/21 11:25 Pain, Shortness of breath cephalexin Allergy Mild Rash Verified 10/10/21 11:25 Cipro Allergy Mild throat Verified 06/09/18 08:28 swells ciprofloxacin Allergy Mild throat Verified 10/10/21 11:25 swells Medications Home Medications Medication Instructions Recorded Confirmed Last Taken allopurinol 100 mg tablet 100 mg PO DAILY #90 tab 08/26/21 10/10/21 09/30/21 enoxaparin 100 mg/mL subcutaneous 100 mg SUBCUT Q12H 30 Days #60 ml 10/03/21 10/10/21 Unknown syringe multivitamin with folic acid 400 1 tab PO QAM 30 Days #30 tab 10/03/21 10/10/21 Unknown mcg tablet (Daily-Lisa (with folic acid)) thiamine HCl (vitamin B1) 100 mg 300 mg PO QAM 30 Days #90 tab 10/03/21 10/10/21 Unknown tablet (Vitamin B-1) Active Medications Generic Name Dose Route Start Last Admin Trade Name Freq PRN Reason Stop Dose Admin Allopurinol 100 mg 10/10/21 21:00 10/11/21 07:50 Allopurinol 100 Mg Tab PO 11/09/21 20:59 100 mg DAILY CURTIS Administration Enoxaparin Sodium 100 mg 10/10/21 19:00 10/11/21 06:01 Enoxaparin 100 Mg/1ml Syr SQ 11/09/21 18:59 100 mg Q12H CURTIS Administration Vancomycin HCl 1,000 mg/ 270 mls @ 200 mls/hr 10/10/21 20:00 10/11/21 09:22 Sodium Chloride IV 11/21/21 19:59 Infused Q12H CURTIS Infusion Protocol Cefepime HCl 2,000 mg/ Syringe 20 mls @ 5 mls/min 10/10/21 22:00 10/11/21 13:20 IV 11/21/21 21:59 5 mls/min Q8H CURTIS Administration Protocol Metronidazole 500 mg 10/10/21 21:00 10/11/21 07:50 Metronidazole 500 Mg Tab PO 11/21/21 20:59 500 mg BID CURTIS Administration Morphine Sulfate 1 mg 10/10/21 19:57 10/11/21 05:58 Morphine Sulfate 2 Mg/Ml Carp IV 10/24/21 19:56 1 mg Q4H PRN Administration Severe Pain Multivitamins 1 tab 10/11/21 09:00 10/11/21 07:50 Multivitamin Tab PO 11/10/21 08:59 1 tab QAM CURTIS Administration Thiamine HCl 300 mg 10/11/21 09:00 10/11/21 07:50 Thiamine Hcl 100 Mg Tab PO 11/10/21 08:59 300 mg QAM CURTIS Administration Past Medical History Medical History Acute kidney injury Anemia Arthritis Chronic kidney disease with symptom management only, stage 4 (severe) Chronic venous insufficiency Deep vein thrombosis 07/2018/CHRONIC- ON ELIQUIS HTN (hypertension) MVP (mitral valve prolapse) 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 ECHO Secondary hyperparathyroidism of renal origin Staphylococcus aureus infection Superficial thrombosis of leg PER RECORDS UTI (urinary tract infection) Venous ulcer RECURRENT VENOUS ULCERATION (REASON FOR PROCEDURE) Vitamin D deficiency Past Family History Family History Mother FHx: lung cancer Hypertension Breast cancer Brother FHx: testicular cancer Hypertension Father Hypertension Unknown Myocardial infarction Past Surgical History Surgical History Hx of biopsy LEFT KIDNEY S/P vascular surgery LLE 2/2 VENOUS INSUFFICIENCY Status post left foot surgery I and D of left foot on 08/22/21. LMA #5 Social History Smoking Status: Never smoker Hx Alcohol Use: Yes Alcohol type: hard liquor alcohol intake frequency: 3 or more drinks per day Hx Substance Use: No substance use type: does not use Physical Exam Vital Signs Last Vital Signs Temp 36.8 C 10/11/21 15:42 Pulse 96 H 10/11/21 15:42 Resp 18 10/11/21 15:42 BP 142/94 H 10/11/21 15:42 Pulse Ox 98 10/11/21 15:42 Testing Laboratory Results 10/11/21 05:21 10/11/21 05:21 PT 11.5 Seconds (9.0-12.0) 10/10/21 12:20 INR 1.1 (0.9-1.1) 10/10/21 12:20 APTT 30.8 Seconds (21.0-31.0) 10/10/21 12:20 10/10/21 12:20 Aerobic Blood Culture - Preliminary Blood No growth in Aerobic bottle after 24 hours. Anaerobic Blood Culture - Preliminary No growth in Anaerobic bottle after 24 hours. 10/10/21 12:20 Aerobic Blood Culture - Preliminary Blood No growth in Aerobic bottle after 24 hours. Anaerobic Blood Culture - Preliminary No growth in Anaerobic bottle after 24 hours. 10/10/21 12:00 Gram Stain - Final Foot Aerobic and Anaerobic Culture - Preliminary No growth to date. Electrocardiogram Date: 10/10/21 SR with 1st degree AV block, rate 93, LVH, possible left atrial enlargement Chest X-Ray Date: 10/01/21 XR chest 1V portable CLINICAL HISTORY: abd pain TECHNIQUE: Single frontal radiograph of the chest was obtained. Comparison: Comparison is made to chest one view 08/20/2021 FINDINGS: No lines and tubes are seen. The cardiomediastinal silhouette is normal. The lungs are clear. No evidence of pleural effusion or pneumothorax. IMPRESSION: No acute chest disease. ACT 112: Negative or not required by law.
[2021-10-11] MEDS ORDERED: GADOBUTROL 65ML VIAL IV ONE (17:47)
--- NOTE | 2021-10-11 19:46 | Orthopedic Consultation ---
Date of Consultation October 11, 2021 Assessment & Plan (1) Cellulitis: Case discussed with Dr. Ghosh. MRI of left ankle and foot ordered. Continue antibx. Lovenox held. Plan for possible surgery tomorrow for I/D; question of removal of left 5th toe osteo. History of Present Illness Reason for Consultation: LLE Cellulitis/question of osteomyelitis 5th toe Attending Physician: Raimundo Villa History of Present Illness 41 yo WM known to our practice with h/o of bilateral LE infections. Pt admitted for cellulitis of the LLE and foot yesterday. Pt woke up with moderate pain in the left foot. He has had a blister over the area of his achilles tendon of which had opened up and had bloody drainage. He continued to have pain and drainage and came into the ER. Repeat foot xrays were showing a new area of likely osteomyelitis noted at the 5th toe and noted likely cellulitis of the LLE and the pt was admitted for IV antibx. We have been asked to see him for his osteomyelitis/cellulitis Allergies Allergy/AdvReac Type Severity Reaction Status Date / Time doxycycline Allergy Severe Joint Verified 10/10/21 11:25 Pain, Shortness of breath cephalexin Allergy Mild Rash Verified 10/10/21 11:25 Cipro Allergy Mild throat Verified 06/09/18 08:28 swells ciprofloxacin Allergy Mild throat Verified 10/10/21 11:25 swells Home Medications Medication Instructions Recorded Confirmed Type allopurinol 100 mg tablet 100 mg PO DAILY #90 tab 08/26/21 10/10/21 Rx enoxaparin 100 mg/mL subcutaneous 100 mg SUBCUT Q12H 30 Days #60 ml 10/03/21 10/10/21 Rx syringe multivitamin with folic acid 400 1 tab PO QAM 30 Days #30 tab 10/03/21 10/10/21 Rx mcg tablet (Daily-Lisa (with folic acid)) thiamine HCl (vitamin B1) 100 mg 300 mg PO QAM 30 Days #90 tab 10/03/21 10/10/21 Rx tablet (Vitamin B-1) Patient History Medical History Acute kidney injury Anemia Arthritis Chronic kidney disease with symptom management only, stage 4 (severe) Chronic venous insufficiency Deep vein thrombosis 07/2018/CHRONIC- ON ELIQUIS HTN (hypertension) MVP (mitral valve prolapse) 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 LMA #5 Family History Mother FHx: lung cancer Hypertension Breast cancer Brother FHx: testicular cancer Hypertension Father Hypertension Unknown Myocardial infarction Social History Smoking Status: Never smoker Second Hand Exposure: No; Hx Alcohol Use: Yes Alcohol type: hard liquor Alcohol Intake Frequency Comment: daily Hx Substance Use: No Preferred Language: South African Communication Ability: Effective Visual Impairment: No Limitations Silver Miner Blasting Required: No Beliefs That Will Affect Care: None marital status: Single Current Living Situation: Family Current Living Situation Comment: [facility] KIDS How many Children do You have: 0 Other Information That Helps Us Care for You: No Feels Safe at Home: Yes Safety Concerns: Feels Safe At This Time Assistive Devices: None Physical Exam Physical Exam: Pt sitting up in bed awake and alert. He appears to be in NAD, pleasant and cooperative. On exam of the left foot, there is a dressing noted on the posterior aspect of the ankle/achilles area. Small amount of drainage note on dressing. This was removed. Cellulitis noted of the posterior ankle area noted. A large 2 x 1 cm blister is noted on the distal Achilles tendon. Minimal drainage noted. No foul odor. Areas of healing wounds on the dorsum of the foot over the 4th and 5th metacarpals are noted. One area has some mild drainage noted to it but now foul odor or purulent looking drainage. He has moderate tenderness on palpation over the area of the blister, Achilles tendon, medial/lateral malleolus areas. Medial malleolar ulceration noted. No drainage at this time. Eschar over most of area. New dressing applied. Right foot looks better since seeing him last week . Less swelling. He has a few smaller areas of dry blisters medially. He states he continues to have pain in the right foot as well. Results & Data ([facility]) Vital Signs (Past 12 Hours) Vital Signs Temp Pulse Resp BP Pulse Ox 10/11/21 15:42 36.8 C 96 H 18 142/94 H 98 Laboratory Results Laboratory Results WBC 9.41 K/uL (4.8-10.8) 10/11/21 05:21 RBC 2.62 M/uL (4.7-6.1) L 10/11/21 05:21 Hgb 9.1 g/dL (14.0-18.0) L 10/11/21 05:21 Hct 28.4 % (42-52) L 10/11/21 05:21 MCV 108.4 fL (80-100) H 10/11/21 05:21 MCH 34.7 pg (25-34) H 10/11/21 05:21 MCHC 32.0 g/dL (32-36) 10/11/21 05:21 RDW Std Deviation 56.4 fL (36.4-46.3) H 10/11/21 05:21 RDW Coeff of Machelle 14.1 % (11.5-14.5) 10/11/21 05:21 Plt Count 432 K/uL (130-400) H 10/11/21 05:21 MPV 8.6 fL (7.4-10.4) 10/11/21 05:21 Immature Gran % (Auto) 0.1 % 10/11/21 05:21 Neut % (Auto) 59.5 % 10/11/21 05:21 Lymph % (Auto) 15.0 % 10/11/21 05:21 Faulk % (Auto) 9.9 % 10/11/21 05:21 Eos % (Auto) 14.9 % 10/11/21 05:21 Baso % (Auto) 0.6 % 10/11/21 05:21 Neut # (Auto) 5.60 K/uL (1.4-6.5) 10/11/21 05:21 Lymph # (Auto) 1.41 K/uL (1.2-3.4) 10/11/21 05:21 Faulk # (Auto) 0.93 K/uL (0.11-0.59) H 10/11/21 05:21 Eos # (Auto) 1.40 K/uL (0-0.5) H 10/11/21 05:21 Baso # (Auto) 0.06 K/uL (0-0.2) 10/11/21 05:21 Immature Gran # (Auto) 0.01 K/uL (0.00-0.02) 10/11/21 05:21 PT 11.5 Seconds (9.0-12.0) 10/10/21 12:20 INR 1.1 (0.9-1.1) 10/10/21 12:20 APTT 30.8 Seconds (21.0-31.0) 10/10/21 12:20 PTT Ratio 1.2 10/10/21 12:20 Sodium 141 mmol/L (136-145) 10/11/21 05:21 Potassium 3.7 mmol/L (3.5-5.1) D 10/11/21 05:21 Chloride 113 mmol/L (98-107) H 10/11/21 05:21 Carbon Dioxide 23 mmol/L (21-32) 10/11/21 05:21 Anion Gap 5.0 (3-11) 10/11/21 05:21 BUN 10 mg/dl (7-18) 10/11/21 05:21 Creatinine 1.19 mg/dl (0.6-1.4) 10/11/21 05:21 Est Cr Clr Drug Dosing 98.3 ml/min 10/11/21 05:21 Est GFR ( Amer) 86.2 ml/min 10/11/21 05:21 Est GFR (Non-Af Amer) 74.4 ml/min 10/11/21 05:21 BUN/Creatinine Ratio 8.7 (10-20) L 10/11/21 05:21 Glucose 96 mg/dl (70-99) 10/11/21 05:21 Lactate 1.4 mmol/L (0.4-2.0) 10/10/21 12: Calcium 8.1 mg/dl (8.5-10.1) L 10/11/21 05:21 Total Bilirubin 0.5 mg/dl (0.2-1) 10/10/21 12: AST 33 U/L (15-37) 10/10/21 12:20 ALT 20 (12-78) 10/10/21 12:20 Alkaline Phosphatase 170 U/L (45-117) H 10/10/21 12:20 Total Protein 7.7 gm/dl (6.4-8.2) 10/10/21 12:20 Albumin 2.6 gm/dl (3.4-5.0) L 10/10/21 12:20 Globulin 5.1 gm/dl (2.5-4.0) H 10/10/21 12:20 Albumin/Globulin Ratio 0.5 (0.9-2) L 10/10/21 12:20 Procalcitonin 0.14 ng/ml (0-0.5) 10/10/21 12:20 SARS-CoV-2, RNA, NAAT NEGATIVE (NEGATIVE) 10/10/21 13:50 Impressions Ankle X-Ray 10/10/21 11:57 XR ankle LT min 3V routine, XR foot LT min 3V routine HISTORY: Posterior ankle abscess r/o osteomyelitis. Left foot swelling. COMPARISON STUDY: Left foot radiograph 08/20/2021. FINDINGS: Soft tissue gas adjacent to the fifth metatarsal has resolved in the interval. No acute fracture or dislocation within the left ankle or left foot. The Lisfranc joint is intact. Dorsal soft tissue swelling within the forefoot has slightly improved. Best seen on the lateral view there appear to be focal cortical destruction at the dorsal base of the left fifth toe proximal phalanx. This is new from the prior study and likely represents focal area of osteomyelitis. Degenerative changes at the talonavicular joint again noted. Small plantar and posterior calcaneal spurs. 3.2 cm focal skin ulceration along the medial malleolus. Focal soft tissue swelling with possible skin blister at the posterior ankle. No bony destruction within the ankle to suggest an osteomyelitis. The bones are osteopenic. IMPRESSION: 1. Small focal area of cortical destruction at the dorsal base of the left fifth toe proximal phalanx. This is new from the prior study and likely represents osteomyelitis. 2. A 3.2 cm skin ulceration at the medial malleolus. No underlying bony destruction. 3. Focal soft tissue swelling at the posterior ankle with a probable skin blister. ACT 112: Negative or not required by law. Electronically signed by: Omar Duque M.D. 10/10/2021 1:08 PM Foot X-Ray 10/10/21 11:57 XR ankle LT min 3V routine, XR foot LT min 3V routine HISTORY: Posterior ankle abscess r/o osteomyelitis. Left foot swelling. COMPARISON STUDY: Left foot radiograph 08/20/2021. FINDINGS: Soft tissue gas adjacent to the fifth metatarsal has resolved in the interval. No acute fracture or dislocation within the left ankle or left foot. The Lisfranc joint is intact. Dorsal soft tissue swelling within the forefoot has slightly improved. Best seen on the lateral view there appear to be focal cortical destruction at the dorsal base of the left fifth toe proximal phalanx. This is new from the prior study and likely represents focal area of osteomyelitis. Degenerative changes at the talonavicular joint again noted. Small plantar and posterior calcaneal spurs. 3.2 cm focal skin ulceration along the medial malleolus. Focal soft tissue swelling with possible skin blister at the posterior ankle. No bony destruction within the ankle to suggest an osteomyelitis. The bones are osteopenic.
--- NOTE | 2021-10-11 20:22 | Magnetic Resonance Report ---
MR foot LT wo/w con, MR ankle LT wo/w con HISTORY: 41 years-old Male assess osteo of foot acute pain and swelling of the left foot and ankle. Clinical concern prostate myelitis. COMPARISON: Left foot and ankle radiographs 10/10/2021, MRI left foot 08/24/2021. TECHNIQUE: Multiplanar multisequence MRI of the left foot and ankle was obtained both with and withou t the use of 9 mL Gadavist FINDINGS: FOOT: No acute fracture, dislocation, significant bone marrow edema, or osseous erosion identified. The rec ently questioned osseous erosion involving the base of the fifth proximal phalanx is not confirmed an d was likely artifactual. There is severe degeneration of the talonavicular joint with associated mar ginal spurring and subcortical cystic change. There is moderate diffuse subcutaneous and deep tissue edema which demonstrates associated enhancement within the dorsal subcutaneous distribution most prom inently. There is diffuse intrinsic atrophy of the musculature. No fluid collection to suggest absces s. The imaged flexor and extensor tendons appear intact. No tenosynovitis. ANKLE: 2.8 cm ulcer of the posterior medial ankle on image 16. Additional areas of subcutaneous ulceration i nvolving the posterior ankle with a large area of phlegmonous change measuring 4.6 x 2.0 x 3.8 cm wit hin the posterior lateral tissues extending into the pre-Achilles fat pad. This also encases the left lateral and posterior portions of the Achilles tendon. Moderate associated skin thickening with hete rogeneous enhancement within this distribution. Additionally, there are areas of intrinsic increased T1 signal as seen on image 20 of series 20. No drainable fluid collection. There is diffuse subcutane ous, deep tissue and intramuscular edema with atrophy of the intrinsic musculature suggestive of pony ride attendant lion denervation changes. Suboptimal evaluation of the tendons and ligaments secondary to motion artif act. Severe degeneration of the talonavicular joint with associated subcortical cystic change. Mild patchy edema within the calcaneus is likely reactive. No osseous erosions or definitive evidence of osteomy elitis. Marrow edema with mild enhancement about the lateral calcaneal body. The talar dome is smooth . IMPRESSION: 1. Cellulitis with soft tissue ulcers of the medial and posterolateral ankle/hindfoot. Additionally, there is a 4.6 cm phlegmon of the ankle which extends into the pre-Achilles fat pad and demonstrates areas of increased T1 signal which may represent trace associated hemorrhage or medicinal material fr om incision and drainage. No drainable abscess identified at this time. 2. Mild marrow edema with enhancement is noted involving the subcortical aspect of the lateral calcan eal body. This may represent reactive osteitis versus early developing osteomyelitis. No cortical ero sions. 3. No MR evidence of osteomyelitis within the foot. ACT 112: Negative or not required by law. The above report was generated using voice recognition software. It may contain grammatical, syntax o r spelling errors. Electronically signed by: Kahlil Fisher M.D. 10/11/2021 8:21 PM
--- NOTE | 2021-10-11 22:44 | Hospitalist Progress Note ---
Date of Service October 11, 2021 Assessment & Plan (1) Venous stasis ulcer of left lower leg with edema of left lower leg: Plan: Mr. Sharif is a 41 year old male with a history of a Pancreatic Mass (Pseudocyst), Portal Venous Thrombosis, Stage IV CKD, Secondary Hyper parathyroidism, MVP with Moderate MR, Pancreatitis, Alcohol Use Disorder, Chronic Venous Insufficiency, Chronic Venous Stasis Ulcers/Wounds, and a Coagulopathy (on chronic Lovenox, failed on Eliquis) -- who presented to the ER to after awakening with a severe throbbing pain in his left foot that he noticed when he woke up. He noticed a large blister over top his left Achilles tendon ruptured and bled and continues to ooze blood at this point. An x-ray was done of his left foot and ankle and suggested an osteomyelitis at the dorsal base of the left 5th toe proximal phalanx. With evidence of osteomyelitis and a probable left leg cellulitis patient is being admitted for IV antibiotics. Recommend the following: -- Admit to Med Surg. -- IV Vancomycin. -- IV Cefepime. -- Oral Metronidazole. -- Consult orthopedic surgery for osteomyelitis. 10/11 Recurrent infections likely secondary to alcoholism, poor nutrition, possible seeding. will await surgery for tomorrow. Patient will likely have debridement and a washout. (2) Cellulitis: Plan: -- Manage as outlined above. (3) Osteomyelitis of ankle or foot, left, acute: Plan: Left Foot and Ankle X-ray shows osteomyelitis at the dorsal base of the left 5th toe proximal phalanx. -- Antibiotics and Ortho Consult as outlined above. (4) Portal vein thrombosis: Plan: History of Portal Vein Thrombosis which is likely the result of his Coagulopathy and Pancreatic Pseudocyst compressing the venous structures. -- This is likely contributing to his chronic venous insufficiency as well. -- Patient failed on Eliquis in the past. -- He is now chronically anticoagulated with Lovenox. (5) Coagulopathy: Plan: -- Patient failed on Eliquis in the past. -- He is now chronically anticoagulated with Lovenox. (6) Chronic kidney disease with symptom management only, stage 4 (severe): Plan: -- Monitor daily labs. -- Avoid dehydration. -- Avoid nephrotoxic drugs. Admission and Anticipated Discharge Date Admission Date: October 10, 2021 Subjective Patient reports no new symptoms. Review of Systems Review of Systems: All systems reviewed & are unremarkable except as noted in HPI & below Physical Exam Physical Exam: GENERAL: Patient in no acute distress. HEENT: Head is atraumatic, normocephalic. Sclerae anicteric. EOM's intact. Facies symmetric. No perioral cyanosis. NECK: No JVD. JVP is not elevated. Carotid upstrokes are + 2 bilaterally without obvious bruits. CHEST/LUNGS: Clear to auscultation throughout all lung thornton. No wheezes, rales, or crackles. CVS: S1 and S2 are regular without obvious murmurs, gallops, or rubs. PMI is nondisplaced. No lifts, heaves, or thrills. No abdominal aortic or renal bruits. ABDOMINAL EXAM: Bowel sounds are present. No masses, organomegaly, or te nderness. EXTREMITIES: Pigmentation changes present in bilateral legs and feet. 2 cm bullae oozing sanguinous fluid noted over the Achilles region of the left lower extremity. Warmth noted throughout the left foot up into the left calf. No clubbing or cyanosis. No edema. Intact dorsalis pedis and radial pulses bilaterally. NEUROLOGIC EXAM: Patient is awake, alert, and oriented. Pleasant and cooperative. Answers questions appropriately. Speech is clear. Normal movement in all 4 extremities. Gait pattern was not assessed. Results & Data Results & Data ([facility]) Vital Signs (Past 12 Hours) Vital Signs Temp Pulse Resp BP Pulse Ox 10/11/21 15:42 36.8 C 96 H 18 142/94 H 98 PG Care Time/CCT Total # of Minutes Spent Total Time Spent with Patient: Total time spent is greater than 50% in coordination of care (as documented) at patient's floor/unit and/or counseling patient: Coding Level of Care Code 73699 Subseq Hosp Care Lvl 3 Diagnoses Venous stasis ulcer of left lower leg with edema of left lower leg I83.029; I83.892; L97.929; R60.9 Cellulitis L03.90 Osteomyelitis of ankle or foot, left, acute M86.172 Portal vein thrombosis I81 Coagulopathy D68.9 Chronic kidney disease with symptom management only, stage 4 (severe) N18.4
[2021-10-12] MEDS: CEFEPIME 2,000 MG in SYRINGE 0 ML IV SCH ×3 (05:34→21:52)
[2021-10-12] MEDS ORDERED: VANCOMYCIN TROUGH ONE (07:30)
[2021-10-12 08:09] LABS: Basophils # (auto) 0.04 K/uL (0-0.2); Basophils % (auto) 0.4 %; Eosinophils # (auto) 1.16 K/uL (0-0.5); Eosinophils % (auto) 11.9 %; Hemoglobin 10.4 g/dL (14.0-18.0); Immature Granulocytes # (auto) 0.03 K/uL (0.00-0.02); Immature Granulocytes % (auto) 0.3 %; Lymphocytes # (auto) 1.47 K/uL (1.2-3.4); Lymphocytes % (auto) 15.1 %; Mean Corpuscular Hemoglobin 34.9 pg (25-34); Mean Corpuscular Hgb Conc 32.5 g/dL (32-36); Mean Corpuscular Volume 107.4 fL (80-100); Mean Platelet Volume 8.3 fL (7.4-10.4); Monocytes # (auto) 0.79 K/uL (0.11-0.59); Monocytes % (auto) 8.1 %; Neutrophils # (auto) 6.25 K/uL (1.4-6.5); Neutrophils % (auto) 64.2 %; Platelet Count 440 K/uL (130-400); RDW Coefficient of Variation 13.8 % (11.5-14.5); RDW Standard Deviation 54.6 fL (36.4-46.3); Red Blood Count 2.98 M/uL (4.7-6.1); White Blood Count 9.74 K/uL (4.8-10.8)
[2021-10-12 08:24] LABS: BUN Creatinine Ratio 8.1 (10-20); Calcium 8.9 mg/dl (8.5-10.1); Creatinine Clr Calc Pharmacy 92.8 ml/min; Est GFR (African American) 80.4 ml/min; Est GFR (Non-African American) 69.4 ml/min; Potassium 3.3 mmol/L (3.5-5.1)
[2021-10-12] MEDS: metroNIDAZOLE 500 MG TAB PO SCH ×3 (08:26→21:52)
[2021-10-12] MEDS: allopurinoL 100 MG TAB PO SCH (08:26)
[2021-10-12] MEDS: THIAMINE HCL 100 MG TAB PO SCH (08:26)
[2021-10-12] MEDS: MULTIVITAMIN TAB PO SCH (08:26)
[2021-10-12] MEDS ORDERED: LIDOCAINE 2% 2 ML VIAL/AMP(20MG/ML) INFIL ONE (08:40)
[2021-10-12] MEDS ORDERED: PROPOFOL IV EMULSION 10 MG/ML 20 ML VIAL IV ONE ×2 (08:40→13:45)
[2021-10-12] MEDS ORDERED: DEXAMETHASONE SOD INJ 4 MG/ML VIAL ONE (08:40)
[2021-10-12] MEDS ORDERED: ONDANSETRON INJ 2 MG/ML 2 ML VIAL ONE ×2 (08:40→13:45)
[2021-10-12] MEDS ORDERED: fentaNYL citrate 100 MCG/2 ML VIAL ONE ×3 (08:40→11:23)
[2021-10-12] MEDS ORDERED: MIDAZOLAM HCL 1 MG/ML 2ML VIAL ONE (08:40)
[2021-10-12] MEDS: VANCOMYCIN HCL 1,000 MG in SODIUM CHLORIDE 0.9% 250 ML IV SCH (08:48)
[2021-10-12] MEDS ORDERED: ATROPINE SULFATE 0.1 MG/ML 10ML SYR IV PRN (08:53)
[2021-10-12] MEDS ORDERED: ONDANSETRON INJ 2 MG/ML 2 ML VIAL IV PRN (08:53)
[2021-10-12] MEDS ORDERED: ePHEDrine sulfate 50 MG/ML AMP IV PRN (08:53)
[2021-10-12] MEDS ORDERED: [UNRECOGNIZED DRUG - REMARK] ONE (09:00)
--- NOTE | 2021-10-12 09:47 | Pharmacy Report ---
Pharmacy Vanc AUC Short Note - Date of Service October 12, 2021 - Assessment & Plan Assessment 41 year old M receiving vancomycin, cefepime and metronidazole for treatment of osteomyelitis, cellulitis * BC and foot culture with no growth to date * Day # 3 of antimicrobial therapy Plan Vancomycin IV * Current dose of 1000 mg IV q12h produced a supratherapeutic trough level of 23.4 mcg/mL this morning * RN was instructed to take down the vancomycin bag that was infusing (pt received about 90mL = ~333 mg) * Reduce dose to 750 mg (8 mg/kg) IV q12h starting today at 1200 * regimen predicted to achieve AUC/RENAN of 505 mg/L.hr) * AUC/RENAN is the preferred PK/PD target for vancomycin * will repeat drug level within the next 48 hours with continued usage Continue Cefepime 2g IV q8h + metronidazole 500 mg PO TID (not pharm consults) Pharmacy will continue to follow and will adjust dose/frequency as necessary. Thank you.
--- NOTE | 2021-10-12 10:09 | History & Physical Bridge Note ---
Date of Service October 12, 2021 History & Physical Bridge Note I have examined the patient, reviewed the History & Physical and in the interval since the performance of the History & Physical I have noted the following changes of clinical significance: no changes noted
[2021-10-12] MEDS ORDERED: BUPIVACAINE 0.5 % 5 MG/1 ML MPF 30ML VIAL ONE (10:44)
[2021-10-12] MEDS ORDERED: VANCOMYCIN HCL 1000MG/20ML VIAL ONE (11:28)
[2021-10-12] MEDS ORDERED: GENTAMICIN SULFATE 40 MG/ML 2 ML VIAL ONE (11:28)
[2021-10-12] MEDS ORDERED: HYDROmorphone INJ 2 MG/ML SYR/VIAL ONE (11:55)
[2021-10-12] MEDS ORDERED: VANCOMYCIN HCL 1,000 MG in SODIUM CHLORIDE 0.9% 250 ML IV SCH (12:00)
[2021-10-12] MEDS: fentaNYL citrate 100 MCG/2 ML VIAL IV PRN ×4 (12:45→13:01)
--- NOTE | 2021-10-12 13:13 | Post Operative Brief Note ---
Immediate Post Op Note v1 Date of Surgery October 12, 2021 Pre & Post Diagnosis Operation Date: 10/12/21 09:05 Pre-Op Diagnosis: Left ankle abscess, left Achilles septic tenosynovitis, left lateral foot abscess. Right ankle abscess, right Achilles septic tenosynovitis Post-Op Diagnosis: Left ankle abscess, left Achilles septic tenosynovitis, left lateral foot abscess, left second toe abscess, left second extensor septic tenosynovitis, left third extensor septic tenosynovitis, abscess medial left lower leg. Right ankle abscess, right Achilles septic tenosynovitis I identified the patient and participated in the time-out.: Yes Procedure Operation Date: 10/12/21 09:05 Actual Procedures p Left: Ankle Incision and Drainage Abscess, Tenosynovectomy septic left Achilles tendon, incision and drainage abscess lateral foot, incision and drainage left second toe abscess, Tenosynovectomy septic left second extensor tendon, Tenosynovectomy left third septic extensor tendon, incision and drainage abscess medial left lower leg,application of Antibiotic Stimulan Beads left lower extremity, Right: Right ankle incision and drainage abscess, tenosynovectomy right septic Achilles tendon, Application of Antibiotic Stimulan Beads right lower extremity - Jose A Ghosh DO Surgeon Jose A Ghosh DO Product Support Technician Rashel Uribe PA-C Estimated Blood Loss 5 Findings Consistent with Post-Op Diagnosis Specimens Aerobic, anaerobic, Gram stain left ankle abscess Drains Other (Multiple 1/2 inch iodoform gauze drains left and right foot and ankle) Complications none Disposition Accompanied Patient To Recovery: Yes
--- NOTE | 2021-10-12 13:16 | Anesthesiology Progress Note ---
Date of Service October 12, 2021 Anesthesia Post Procedure Vital Signs Vital Signs: Temp Pulse Resp BP BP Pulse Ox 10/12/21 13:05 96 H 17 133/92 97 10/12/21 12:55 96 H 16 133/91 95 10/12/21 12:45 94 H 18 136/93 100 10/12/21 12:36 97.0 F L 93 H 18 146/98 H 98 10/12/21 08:25 98.4 F 89 18 139/99 99 10/12/21 07:16 97.9 F 86 16 127/80 95 10/11/21 23:00 98.6 F 93 H 19 119/70 95 10/11/21 15:42 98.2 F 96 H 18 142/94 H 98 Pain Intensity Bilateral Ankle: Pain Intensity: 6 Left Ankle: Pain Intensity: 5 Transfer of Care Handoff Completed per policy Notes Mental Status: alert / awake / arousable and participated in evaluation Patient Amnestic to Procedure: Yes Nausea / Vomiting: adequately controlled Pain: adequately controlled Airway Patency, RR, SpO2: stable & adequate BP & HR: stable & adequate Hydration State: stable & adequate Anesthetic Complications: no major complications apparent and Pt Satisfied with anesthetic care
[2021-10-12] MEDS ORDERED: NALOXONE HCL 0.4 MG/1 ML VIAL/CARP IV PRN (13:31)
[2021-10-12] MEDS ORDERED: MAGNESIUM HYDROXIDE SUSP 30 ML UDC PO PRN (13:31)
[2021-10-12] MEDS ORDERED: oxyCODONE HCL IR 5 MG TAB (IMMEDIATE RELEASE) PO PRN (13:31)
[2021-10-12] MEDS ORDERED: bisacodyL 10 MG SUPP PR PRN (13:31)
[2021-10-12] MEDS: VANCOMYCIN HCL 750 MG in SODIUM CHLORIDE 0.9% 250 ML IV SCH (13:45)
[2021-10-12] MEDS: HYDROmorphone INJ 0.5 MG/0.5 ML SYR IV PRN ×2 (14:00→17:57)
[2021-10-12] MEDS: SODIUM CHLORIDE 0.9% 1000ML 1,000 ML IV SCH (14:04)
--- NOTE | 2021-10-12 14:42 | Operative Report (OR) ---
DATE OF PROCEDURE: 10/12/2021. PREOPERATIVE DIAGNOSES: 1. Left ankle abscess. 2. Left Achilles septic tenosynovitis. 3. Left lateral foot abscess. 4. Right ankle abscess. 5. Right Achilles septic tenosynovitis. POSTOPERATIVE DIAGNOSES: 1. Left ankle abscess. 2. Left septic Achilles tenosynovitis. 3. Left lateral foot abscess. 4. Left second toe abscess. 5. Left second extensor tendon septic tenosynovitis. 6. Left third extensor tendon septic tenosynovitis. 7. Abscess, medial left lower leg. 8. Right ankle abscess. 9. Right Achilles tendon septic tenosynovitis. PROCEDURES: 1. Left ankle incision and drainage of abscess. 2. Tenosynovectomy septic left Achilles tendon. 3. Incision and drainage of abscess, lateral foot. 4. Incision and drainage, left second toe abscess. 5. Tenosynovectomy septic left second extensor tendon. 6. Tenosynovectomy, left third septic extensor tendon. 7. Incision and drainage of abscess in the medial left lower leg. 8. Application of antibiotic Stimulan beads, left lower extremity, multiple incisions as noted above . 9. Right ankle incision and drainage of abscess. 10. Tenosynovectomy, right septic Achilles tendon. 11. Application of antibiotic Stimulan beads, right lower extremity. SURGEON: Jose A Ghosh DO. INSULATION CUTTER: Rashel Uribe PA-C who was present for patient positioning, sterile prep and drape, m anagement of retractors and instruments. He was present through the critical portions of the case inc luding wound closure, application of sterile dressing and transport of the patient to recovery. ANESTHESIA: General, local. SPECIMENS: Aerobic, anaerobic, Gram stain left ankle abscess. DRAINS: Multiple 1/2 inch iodoform gauze drains left and right foot and ankle. COMPLICATIONS: None. BLOOD LOSS: 5 mL PERTINENT HISTORY: This is a 41-year-old gentleman who is known to the Orthopedic service, who pre[facility] with a recent history of pancreatitis with recent readmission due to swelling and abscess formati on of bilateral lower extremities. He had an MRI, which demonstrated a likely phlegmon and abscess o f the left lower extremity and the patient also complained of knee swelling and fluid pocket right an kle and lower extremity. He attempted and failed conservative management including antibiotics oral and IV and he was then scheduled for surgery as indicated. All potential risks, benefits, complications, alternatives, rehab potential for incomplete relief of symptoms, need for further surgery, DVT, PE, , persistent pain, swelling, scarring, weakness, ne urovascular injury, wound complications, need for further debridement and possible amputation were di scussed with the patient. The patient decided to proceed with procedure as indicated. DESCRIPTION OF PROCEDURE: The patient was taken to the operative suite and placed supine on the oper ating room table. After review of consent and identification of proper operative site, the patient w as anesthetized, LMA was placed. Tourniquets were placed on bilateral lower extremities at the proxi mal thigh. Bilateral lower extremities were then sterilely prepped and draped in the usual fashion. After identification of bilateral lower extremity surgical sites and review of the surgical consent and surgical timeout was performed at that time. Next, the left lower extremity was then elevated, a nd tourniquet inflated to 350 mmHg. There was no exsanguination performed due to the nature of the m ultiple infections. First the 15 blade was used to make an incision along the lateral aspect of the l eft ankle just anterior to the Achilles, incision was deepened through skin and subcutaneous tissue. Abscess pocket was immediately encountered. Caseative necrosis of fat and tissue with coagulated blo od was encountered. This abscess pocket with an associated phlegmon was then sampled for aerobic, an aerobic and Gram stain, specimens were sent to the laboratory. Next, the abscess was then evacuated. A rongeur was then used to remove the phlegmon and a curette w as then used to curettage the soft tissue surrounding the encapsulated abscess. Next, this was noted to be adjacent to the Achilles tendon with localized hypertrophic septic tenosynovitis. Tenosynovec myla was then performed of the Achilles tendon. After the gross infected tissue and necrotic feature s were debrided, attention was then directed toward the lateral foot. A 15 blade scalpel was used to make an incision over the lateral calcaneus at the area of concern mentioned in the MRI and also cli nical exam, careful scissor dissection was performed down the level of the lateral calcaneus, at whic h point, another abscess was encountered. Abscess fluid was then evacuated, and local tissue was the n debrided with a rongeur and curette. Next, a 15 blade scalpel was then used to make a dorsal incision over the second toe, which was noted to have an obvious abscess with eruption through some of the soft tissue with purulent drainage. Th is incision was made centered over the second toe adjacent to its base. This incision was deepened t hrough skin and subcutaneous tissue. Careful dissection was performed with tenotomy scissors and for ceps to the level of the abscess encapsulation which was then evacuated, and then debrided using a ro ngeur and a curette. This abscess was adjacent to the second extensor tendon, which was noted septic tenosynovitis. Tenosynovectomy was then performed with a rongeur of the second extensor tendon. Mo re proximal and lateral in the dorsum of the foot, there was noted to be area of superficial skin los s communicating down to the third extensor tendon. Careful exploration with dissection with scissors and forceps, the third extensor tendon was noted to be involved with septic tenosynovitis. Tenosyno vectomy was then performed of the third extensor tendon with a rongeur and a curette. Once this was completed, attention was then directed toward an abscess, which was noted upon prep of the lower extremity. Abscess noted to be approximately 1.5 cm in diameter of the left lower leg medi al to the gastrocnemius. A 15 blade scalpel was made over the abscess site and careful dissection wa s performed with scissors and forceps down to the abscess pocket. This was evacuated adjacent to the area of Caseative necrosis of the fat. This was evacuated and then debrided carefully with a rongeu r and curette. Once this was completed 10 mL of Stimulan beads were created including 2 grams of van comycin and 2 vials of gentamicin. The beads were then created with some dilution with sterile salin e until the beads were then formed in the beads performing map. Next, pulsatile lavage was then used to lavage all previously mentioned surgical sites of the left lower extremity until clear with 3 lit ers of sterile saline with pulse lavage and 1 gram of Ancef additive. Next, top gloves and top sheet were changed and antibiotic Stimulan beads were then packed into all s urgical sites mentioned previously, including the second toe, lateral foot, the lateral ankle and adj acent to the third extensor tendon. Next, these surgical sites were then loosely closed over a 1/2 i [employer] iodoform gauze packing drains with 3-0 nylon sutures. A sterile compressive dressing was applied after overwrapped with ABD pads and Logan wrap. The tourniquet was released on the left. Next, on e right lower extremity, the limb was elevated and tourniquet inflated to 300 mmHg. Next, a 15 blade scalpel was used to make an incision along the medial aspect of the ankle adjacent to the anterior d istal Achilles. The incision was deepened through the skin and subcutaneous tissue. Careful dissect ion was performed with tenotomy scissors and forceps to the level of the abscess. Abscess was encoun tered with features of Caseative necrosis and organized and disorganized abscess formation. This was evacuated with a rongeur and a large curette. This was adjacent to the Achilles tendon, localized t enosynovitis was also noted. Tenosynovectomy was then performed with a rongeur and curette. Once this was completed, pulsatile lavage was then used to lavage the site until clear with approxima tely 3 liters of sterile saline with Ancef. Once this was completed, top gloves and top sheet were c hanged followed by implantation of Stimulan antibiotic beads as mentioned previously and then 1/2 inc h iodoform gauze drain and packing was inserted. The site was loosely closed over the drain with int errupted 3-0 nylon sutures. The site was injected with 0.5% Marcaine plain, approximately 20 mL and a sterile compressive dressing was overwrapped with an Logan wrap. The tourniquet was released. The p atient was awakened and taken to recovery in stable condition. Job ID: [id number]
--- NOTE | 2021-10-12 20:29 | Electrocardiogram Report ---
Test Reason : Blood Pressure : / mmHG Vent. Rate : 093 BPM Atrial Rate : 093 BPM P-R Int : 218 ms QRS Dur : 078 ms QT Int : 352 ms P-R-T Axes : 061 -14 022 degrees QTc Int : 437 ms Sinus rhythm with 1st degree A-V block Possible Left atrial enlargement Left ventricular hypertrophy Abnormal ECG When compared with ECG of 01-OCT-2021 09:35, No significant change was found Confirmed by Hubert Borrero ([id number]) on 10/12/2021 8:28:27 PM Referred By: REFERRED SELF Confirmed By:Hubert Borrero
[2021-10-12] MEDS: SENNA 8.6 MG TAB PO SCH (21:52)
[2021-10-12] MEDS: DOCUSATE SODIUM 100 MG CAP PO SCH (21:52)
--- NOTE | 2021-10-12 22:04 | Hospitalist Progress Note ---
Date of Service October 12, 2021 Assessment & Plan (1) Venous stasis ulcer of left lower leg with edema of left lower leg: Plan: Mr. Sharif is a 41 year old male with a history of a Pancreatic Mass (Pseudocyst), Portal Venous Thrombosis, Stage IV CKD, Secondary Hyper parathyroidism, MVP with Moderate MR, Pancreatitis, Alcohol Use Disorder, Chronic Venous Insufficiency, Chronic Venous Stasis Ulcers/Wounds, and a Coagulopathy (on chronic Lovenox, failed on Eliquis) -- who presented to the ER to after awakening with a severe throbbing pain in his left foot that he noticed when he woke up. He noticed a large blister over top his left Achilles tendon ruptured and bled and continues to ooze blood at this point. An x-ray was done of his left foot and ankle and suggested an osteomyelitis at the dorsal base of the left 5th toe proximal phalanx. With evidence of osteomyelitis and a probable left leg cellulitis patient is being admitted for IV antibiotics. Recommend the following: -- Admit to Med Surg. -- IV Vancomycin. -- IV Cefepime. -- Oral Metronidazole. -- Consult orthopedic surgery for osteomyelitis. 10/11 Recurrent infections likely secondary to alcoholism, poor nutrition, possible seeding. will await surgery for tomorrow. Patient will likely have debridement and a washout. 10/12 S/P washout on both lower extremities. Patient has extensive infection and multiple abcesses whihc were cleaned. Patient will be monitored, await culture continue above antibiotics (2) Cellulitis: Plan: -- Manage as outlined above. (3) Osteomyelitis of ankle or foot, left, acute: Plan: Left Foot and Ankle X-ray shows osteomyelitis at the dorsal base of the left 5th toe proximal phalanx. -- Antibiotics and Ortho Consult as outlined above. (4) Portal vein thrombosis: Plan: History of Portal Vein Thrombosis which is likely the result of his Coagulopathy and Pancreatic Pseudocyst compressing the venous structures. -- This is likely contributing to his chronic venous insufficiency as well. -- Patient failed on Eliquis in the past. -- He is now chronically anticoagulated with Lovenox. (5) Coagulopathy: Plan: -- Patient failed on Eliquis in the past. -- He is now chronically anticoagulated with Lovenox. (6) Chronic kidney disease with symptom management only, stage 4 (severe): Plan: -- Monitor daily labs. -- Avoid dehydration. -- Avoid nephrotoxic drugs. Admission and Anticipated Discharge Date Admission Date: October 10, 2021 Subjective Patient reports having pain after surgery. However, he states his pain meds are helping. Review of Systems Review of Systems: All systems reviewed & are unremarkable except as noted in HPI & below Physical Exam Physical Exam: GENERAL: Patient in no acute distress. HEENT: Head is atraumatic, normocephalic. Sclerae anicteric. EOM's intact. Facies symmetric. No perioral cyanosis. NECK: No JVD. JVP is not elevated. Carotid upstrokes are + 2 bilaterally without obvious bruits. CHEST/LUNGS: Clear to auscultation throughout all lung thornton. No wheezes, rales, or crackles. CVS: S1 and S2 are regular without obvious murmurs, gallops, or rubs. PMI is nondisplaced. No lifts, heaves, or thrills. No abdominal aortic or renal bruits. ABDOMINAL EXAM: Bowel sounds are present. No masses, organomegaly, or tenderness. EXTREMITIES: bilateral lower extremities are both wrapped NEUROLOGIC EXAM: Patient is awake, alert, and oriented. Pleasant and cooperative. Answers questions appropriately. Speech is clear. Normal movement in all 4 extremities. Gait pattern was not assessed. Results & Data Results & Data ([facility]) Vital Signs (Past 12 Hours) Vital Signs Temp Pulse Resp BP Pulse Ox 10/12/21 19:29 37.2 C 106 H 16 126/78 94 10/12/21 16:25 36.3 C L 94 H 16 138/93 97 10/12/21 15:26 36.3 C L 92 H 20 145/100 H 98 10/12/21 14:26 36.4 C L 95 H 18 133/89 97 10/12/21 14:01 36.5 C 95 H 20 136/92 99 10/12/21 13:30 36.3 C L 93 H 18 131/88 95 10/12/21 13:05 96 H 17 133/92 97 10/12/21 12:55 96 H 16 133/91 95 10/12/21 12:45 94 H 18 136/93 100 10/12/21 12:36 36.1 C L 93 H 18 146/98 H 98 PG Care Time/CCT Total # of Minutes Spent Total Time Spent with Patient: Total time spent is greater than 50% in coordination of care (as documented) at patient's floor/unit and/or counseling patient: Coding Level of Care Code 28322 Subseq Hosp Care Lvl 2 Diagnoses Venous stasis ulcer of left lower leg with edema of left lower leg I83.029; I83.892; L97.929; R60.9 Cellulitis L03.90 Osteomyelitis of ankle or foot, left, acute M86.172 Portal vein thrombosis I81 Coagulopathy D68.9 Chronic kidney disease with symptom management only, stage 4 (severe) N18.4
[2021-10-13] MEDS: VANCOMYCIN HCL 750 MG in SODIUM CHLORIDE 0.9% 250 ML IV SCH ×3 (00:12→23:43)
[2021-10-13] MEDS: SODIUM CHLORIDE 0.9% 1000ML 1,000 ML IV SCH ×3 (00:14→21:56)
[2021-10-13] MEDS: ONDANSETRON INJ 2 MG/ML 2 ML VIAL IV PRN ×2 (00:35→06:34)
[2021-10-13] MEDS: CEFEPIME 2,000 MG in SYRINGE 0 ML IV SCH ×3 (06:15→21:38)
[2021-10-13 08:02] LABS: Basophils # (auto) 0.03 K/uL (0-0.2); Basophils % (auto) 0.2 %; Eosinophils # (auto) 0.77 K/uL (0-0.5); Eosinophils % (auto) 5.3 %; Hematocrit (blood only) 32.4 % (42-52); Hemoglobin 10.4 g/dL (14.0-18.0); Immature Granulocytes # (auto) 0.03 K/uL (0.00-0.02); Immature Granulocytes % (auto) 0.2 %; Lymphocytes # (auto) 0.84 K/uL (1.2-3.4); Lymphocytes % (auto) 5.8 %; Mean Corpuscular Hemoglobin 34.6 pg (25-34); Mean Corpuscular Hgb Conc 32.1 g/dL (32-36); Mean Corpuscular Volume 107.6 fL (80-100); Mean Platelet Volume 8.3 fL (7.4-10.4); Monocytes # (auto) 1.09 K/uL (0.11-0.59); Monocytes % (auto) 7.6 %; Neutrophils # (auto) 11.65 K/uL (1.4-6.5); Neutrophils % (auto) 80.9 %; Platelet Count 446 K/uL (130-400); RDW Standard Deviation 54.8 fL (36.4-46.3); Red Blood Count 3.01 M/uL (4.7-6.1); White Blood Count 14.41 K/uL (4.8-10.8)
[2021-10-13 08:48] LABS: BUN Creatinine Ratio 8.1 (10-20); Calcium 8.6 mg/dl (8.5-10.1); Creatinine Clr Calc Pharmacy 95.9 ml/min; Est GFR (African American) 83.6 ml/min; Est GFR (Non-African American) 72.2 ml/min; Potassium 3.9 mmol/L (3.5-5.1)
[2021-10-13] MEDS ORDERED: MULTIVITAMIN TAB PO SCH (09:00)
[2021-10-13] MEDS ORDERED: PROCHLORPERAZINE 5 MG in SYRINGE 4 ML IV PRN (09:22)
[2021-10-13] MEDS ORDERED: KETOROLAC 30 MG/ML VIAL IV ONE (09:25)
[2021-10-13] MEDS ORDERED: PROCHLORPERAZINE 5 MG in SYRINGE 4 ML IV ONE (09:45)
[2021-10-13] MEDS: allopurinoL 100 MG TAB PO SCH (09:46)
[2021-10-13] MEDS: metroNIDAZOLE 500 MG TAB PO SCH ×3 (09:46→20:47)
[2021-10-13] MEDS: THIAMINE HCL 100 MG TAB PO SCH (09:46)
[2021-10-13] MEDS: DOCUSATE SODIUM 100 MG CAP PO SCH ×2 (09:46→20:48)
[2021-10-13] MEDS: MULTIVITAMIN TAB PO SCH (09:46)
[2021-10-13] MEDS: ACETAMINOPHEN 1,000 MG/100 ML VIAL IV SCH ×2 (09:51→17:48)
--- NOTE | 2021-10-13 12:02 | Hospitalist Progress Note ---
Date of Service October 13, 2021 Assessment & Plan (1) Venous stasis ulcer of left lower leg with edema of left lower leg: Plan: Mr. Sharif is a 41 year old male with a history of a Pancreatic Mass (Pseudocyst), Portal Venous Thrombosis, Stage IV CKD, Secondary Hyper parathyroidism, MVP with Moderate MR, Pancreatitis, Alcohol Use Disorder, Chronic Venous Insufficiency, Chronic Venous Stasis Ulcers/Wounds, and a Coagulopathy (on chronic Lovenox, failed on Eliquis) -- who presented to the ER to after awakening with a severe throbbing pain in his left foot that he noticed when he woke up. He noticed a large blister over top his left Achilles tendon ruptured and bled and continues to ooze blood at this point. An x-ray was done of his left foot and ankle and suggested an osteomyelitis at the dorsal base of the left 5th toe proximal phalanx. With evidence of osteomyelitis and a probable left leg cellulitis patient is being admitted for IV antibiotics. Recommend the following: -- Admit to Med Surg. -- IV Vancomycin. -- IV Cefepime. -- Oral Metronidazole. -- Consult orthopedic surgery for osteomyelitis. 10/11 Recurrent infections likely secondary to alcoholism, poor nutrition, possible seeding. will await surgery for tomorrow. Patient will likely have debridement and a washout. 10/12 S/P washout on both lower extremities. Patient has extensive infection and multiple abcesses whihc were cleaned. Patient will be monitored, await culture continue above antibiotics 10/13 Added IV fluids as HR was elevated and patient vomited. Due to intolerance of narcotics from N/V, switched to tylenol with a one time dose of NSAID. may need repeating NSAID Added boost protein shakes contiue antibiotics. repeat blood work and await culture results. (2) Cellulitis: Plan: -- Manage as outlined above. (3) Osteomyelitis of ankle or foot, left, acute: Plan: Left Foot and Ankle X-ray shows osteomyelitis at the dorsal base of the left 5th toe proximal phalanx. -- Antibiotics and Ortho Consult as outlined above. (4) Portal vein thrombosis: Plan: History of Portal Vein Thrombosis which is likely the result of his Coagulopathy and Pancreatic Pseudocyst compressing the venous structures. -- This is likely contributing to his chronic venous insufficiency as well. -- Patient failed on Eliquis in the past. -- He is now chronically anticoagulated with Lovenox. (5) Coagulopathy: Plan: -- Patient failed on Eliquis in the past. -- He is now chronically anticoagulated with Lovenox. (6) Chronic kidney disease with symptom management only, stage 4 (severe): Plan: -- Monitor daily labs. -- Avoid dehydration. -- Avoid nephrotoxic drugs. Admission and Anticipated Discharge Date Admission Date: October 10, 2021 Subjective Patient reports having nausea and vomiting overnight. He reports it was a large amount of vomit. Review of Systems Review of Systems: All systems reviewed & are unremarkable except as noted in HPI & below Physical Exam Physical Exam: GENERAL: Patient in no acute distress. HEENT: Head is atraumatic, normocephalic. Sclerae anicteric. EOM's intact. Facies symmetric. No perioral cyanosis. NECK: No JVD. JVP is not elevated. Carotid upstrokes are + 2 bilaterally without obvious bruits. CHEST/LUNGS: Clear to auscultation throughout all lung thornton. No wheezes, rales, or crackles. CVS: S1 and S2 are regular without obvious murmurs, gallops, or rubs. PMI is nondisplaced. No lifts, heaves, or thrills. No abdominal aortic or renal bruits. ABDOMINAL EXAM: Bowel sounds are present. No masses, organomegaly, or tenderness. EXTREMITIES: bilateral lower extremities are both wrapped NEUROLOGIC EXAM: Patient is awake, alert, and oriented. Pleasant and cooperative. Answers questions appropriately. Speech is clear. Normal movement in all 4 extremities. Gait pattern was not assessed. Results & Data Results & Data ([facility]) Vital Signs (Past 12 Hours) Vital Signs Temp Pulse Resp BP BP Pulse Ox 10/13/21 08:09 36.9 C 115 H 16 128/77 95 10/13/21 03:27 37.2 C 107 H 18 134/85 95 PG Care Time/CCT Total # of Minutes Spent Total Time Spent with Patient: Total time spent is greater than 50% in coordination of care (as documented) at patient's floor/unit and/or counseling patient: Coding Level of Care Code 59848 Subseq Hosp Care Lvl 2 Diagnoses Venous stasis ulcer of left lower leg with edema of left lower leg I83.029; I83.892; L97.929; R60.9 Cellulitis L03.90 Osteomyelitis of ankle or foot, left, acute M86.172 Portal vein thrombosis I81 Coagulopathy D68.9 Chronic kidney disease with symptom management only, stage 4 (severe) N18.4
--- NOTE | 2021-10-13 12:42 | Orthopedic Progress Note ---
Date of Service October 13, 2021 Assessment & Plan (1) Cellulitis: Plan: POD #1 s/p 1. Left ankle incision and drainage of abscess. 2. Tenosynovectomy septic left Achilles tendon. 3. Incision and drainage of abscess, lateral foot. 4. Incision and drainage, left second toe abscess. 5. Tenosynovectomy septic left second extensor tendon. 6. Tenosynovectomy, left third septic extensor tendon. 7. Incision and drainage of abscess in the medial left lower leg. 8. Application of antibiotic Stimulan beads, left lower extremity, multiple incisions as noted above. 9. Right ankle incision and drainage of abscess. 10. Tenosynovectomy, right septic Achilles tendon. 11. Application of antibiotic Stimulan beads, right lower extremity Dressings kept in place bilateral lower extremities. We will plan for dressing change tomorrow with removal of some packing from each site. Nonweightbearing bilateral lower extremities at all times. Continue IV vancomycin and cefepime. Awaiting intraoperative culture results. Gram stain negative for organisms. Discharge planninguncertain at this time. Admission and Anticipated Discharge Date Admission Date: October 10, 2021 Subjective No complaints bilateral lower extremities. Pain is controlled. Has been mostly in bed without weight on either foot. Physical Exam Constitutional: WD/WN, vitals as above Musculoskeletal: Ankle: + surgical incision (Bilateral foot and ankle: Dressing C/D/I); no surgical drain present Neurologic: + abnormal touch/pain/proprioception (Decreased sensation bilateral lower extremities) Psychiatric: A+Ox3, euthymic affect Speech: normal rate/rhythm/volume of speech Results & Data ([facility]) Vital Signs (Past 12 Hours) Vital Signs Temp Pulse Resp BP BP Pulse Ox 10/13/21 08:09 36.9 C 115 H 16 128/77 95 10/13/21 03:27 37.2 C 107 H 18 134/85 95
[2021-10-13] MEDS: SENNA 8.6 MG TAB PO SCH (20:47)
[2021-10-14] MEDS: ACETAMINOPHEN 1,000 MG/100 ML VIAL IV SCH (02:04)
[2021-10-14] MEDS: CEFEPIME 2,000 MG in SYRINGE 0 ML IV SCH ×3 (06:02→22:22)
[2021-10-14 07:13] LABS: Hematocrit (blood only) 28.8 % (42-52); Hemoglobin 9.1 g/dL (14.0-18.0); Mean Corpuscular Hemoglobin 34.7 pg (25-34); Mean Corpuscular Hgb Conc 31.6 g/dL (32-36); Mean Corpuscular Volume 109.9 fL (80-100); Mean Platelet Volume 8.5 fL (7.4-10.4); Platelet Count 389 K/uL (130-400); RDW Coefficient of Variation 14.2 % (11.5-14.5); RDW Standard Deviation 56.7 fL (36.4-46.3); Red Blood Count 2.62 M/uL (4.7-6.1); White Blood Count 11.73 K/uL (4.8-10.8)
[2021-10-14 07:44] LABS: Albumin Level 1.8 gm/dl (3.4-5.0); BUN Creatinine Ratio 9.9 (10-20); Bilirubin Direct 0.1 mg/dl (0-0.2); Calcium 8.1 mg/dl (8.5-10.1); Creatinine Clr Calc Pharmacy 82.9 ml/min; Est GFR (African American) 70.2 ml/min; Est GFR (Non-African American) 60.6 ml/min; Potassium 3.8 mmol/L (3.5-5.1)
[2021-10-14 07:47] LABS: Bilirubin,Total 0.3 mg/dl (0.2-1); Total Protein 6.1 gm/dl (6.4-8.2)
--- NOTE | 2021-10-14 09:06 | Hospitalist Progress Note ---
Date of Service October 14, 2021 Assessment & Plan (1) Venous stasis ulcer of left lower leg with edema of left lower leg: Plan: Mr. Sharif is a 41 year old male with a history of a Pancreatic Mass (Pseudocyst), Portal Venous Thrombosis, Stage IV CKD, Secondary Hyper parathyroidism, MVP with Moderate MR, Pancreatitis, Alcohol Use Disorder, Chronic Venous Insufficiency, Chronic Venous Stasis Ulcers/Wounds, and a Coagulopathy (on chronic Lovenox, failed on Eliquis) -- who presented to the ER to after awakening with a severe throbbing pain in his left foot that he noticed when he woke up. He noticed a large blister over top his left Achilles tendon ruptured and bled and continues to ooze blood at this point. An x-ray was done of his left foot and ankle and suggested an osteomyelitis at the dorsal base of the left 5th toe proximal phalanx. With evidence of osteomyelitis and a probable left leg cellulitis patient is being admitted for IV antibiotics. Admitted to medical/surgical Suspect recurrent infections in the setting of poor nutrition, alcoholism, possible seeding On initial empiric cefepime/vancomycin/Flagyl Orthopedic surgery consulted for osteomyelitis. Status post debridement/washout 10/12 Leukocytosis downtrending from 14.41 to 11.73 on 10/14 Blood cultures 10/10 no growth to date Prior wound cultures with Pseudomonas stutzeri, Coag Neg Staph, Acinetobacter Wound culture 10/12 pinpoint growth, reincubating -Continue vancomycin at this time, if required at discharge could convert to daptomycin Continue cefepime and Flagyl Narrow to pathogen directed treatment based on culture results Anticipate at least 6 to 8-week course of antibiotics (2) Cellulitis: Plan: -- Manage as outlined above. (3) Osteomyelitis of ankle or foot, left, acute: Plan: Left Foot and Ankle X-ray shows osteomyelitis at the dorsal base of the left 5th toe proximal phalanx. -- Antibiotics and Ortho Consult as Noted above (4) Portal vein thrombosis: Plan: History of Portal Vein Thrombosis which is likely the result of his Coagulopathy and Pancreatic Pseudocyst compressing the venous structures. -- This is likely contributing to his chronic venous insufficiency as well. -- Patient failed on Eliquis in the past. -- Continue Lovenox therapeutic dosing 100 mg every 12 hours (5) Coagulopathy: Plan: Anticoagulation as above (6) Chronic kidney disease with symptom management only, stage 4 (severe): Plan: - Cr 1.41 10/14 from baseline ~1.1 - Renally dose medications - BUN/Cr Ratio 9.9 - Avoid nephrotoxins - Trend BMP daily Admission and Anticipated Discharge Date Admission Date: October 10, 2021 Subjective Patient is seen at bedside. Reports he feels overall, has some in his legs intermittently she is mostly well controlled at time of visit. Denies fever/chills/sweats. Denies numbness/tingling. Wound dressings and packing changed at bedside with surgery present. Review of Systems Review of Systems: All systems reviewed & are unremarkable except as noted in Subjective Physical Exam Physical Exam: General: A&Ox3. NAD. Cooperative. HEENT: Atraumatic, normocephalic. Visual acuity and hearing grossly intact. Pulm: Symmetrical chest rise. No increase work of breathing. No respiratory distress. Cardiac: RRR, -mrg. Radial pulses intact and symmetrical. Abdominal: Nontender, nondistended, soft. BS present. Extremities: Right medial ankle with surgical incision, packing gauze present with several days removed during exam and redressed. Bloody drainage, no purulent drainage. Left ankle with lateral heel, hindfoot, second digit incisions and multiple ulcerations with some bloody drainage but no purulence. Tender overlying all of her/incisions. Sensation to soft touch intact in toes bilaterally. PT pulses intact bilaterally. Results & Data Results & Data ([facility]) Vital Signs (Past 12 Hours) Vital Signs Temp Pulse Resp BP Pulse Ox 10/14/21 07:59 37.1 C 89 16 117/71 97 10/13/21 22:39 37.1 C 103 H 16 114/74 95 PG Care Time/CCT Total # of Minutes Spent Total Time Spent with Patient: Total time spent is greater than 50% in coordination of care (as documented) at patient's floor/unit and/or counseling patient: Coding Level of Care Code 25719 Subseq Hosp Care Lvl 3 Diagnoses Venous stasis ulcer of left lower leg with edema of left lower leg I83.029; I83.892; L97.929; R60.9 Cellulitis L03.90 Osteomyelitis of ankle or foot, left, acute M86.172 Portal vein thrombosis I81 Coagulopathy D68.9 Chronic kidney disease with symptom management only, stage 4 (severe) N18.4
[2021-10-14] MEDS: metroNIDAZOLE 500 MG TAB PO SCH ×3 (09:31→19:52)
[2021-10-14] MEDS: DOCUSATE SODIUM 100 MG CAP PO SCH ×2 (09:31→19:53)
[2021-10-14] MEDS: MULTIVITAMIN TAB PO SCH (09:31)
[2021-10-14] MEDS: THIAMINE HCL 100 MG TAB PO SCH (09:32)
[2021-10-14] MEDS: allopurinoL 100 MG TAB PO SCH (09:32)
--- NOTE | 2021-10-14 09:37 | Orthopedic Progress Note ---
Date of Service October 14, 2021 Assessment & Plan (1) Cellulitis: Plan: POD #2 s/p 1. Left ankle incision and drainage of abscess. 2. Tenosynovectomy septic left Achilles tendon. 3. Incision and drainage of abscess, lateral foot. 4. Incision and drainage, left second toe abscess. 5. Tenosynovectomy septic left second extensor tendon. 6. Tenosynovectomy, left third septic extensor tendon. 7. Incision and drainage of abscess in the medial left lower leg. 8. Application of antibiotic Stimulan beads, left lower extremity, multiple incisions as noted above. 9. Right ankle incision and drainage of abscess. 10. Tenosynovectomy, right septic Achilles tendon. 11. Application of antibiotic Stimulan beads, right lower extremity Dressing change today with iodoform gauze being removed at all sites with the exception of some remaining packing at the medial aspect of the right Achilles and the lateral aspect of the left Achilles. Nonweightbearing on left lower extremity but partial weightbearing on the right lower extremity for transferring. Continue IV vancomycin and cefepime. Awaiting intraoperative culture results. Gram stain negative for organisms. Discharge planninguncertain at this time. Admission and Anticipated Discharge Date Admission Date: October 10, 2021 Subjective No complaints bilateral lower extremities. Pain is controlled. Has been mostly in bed without weight on either foot. Physical Exam Constitutional: WD/WN, vitals as above Musculoskeletal: Ankle: + surgical incision (Bilateral foot and ankle: Dressing C/D/I); no surgical drain present Right ankle: Well approximated incision along the medial aspect of the Achilles. Mild bloody drainage. Iodoform gauze packing present. Approximately 6 inches removed today. Left ankle and foot: Well approximated incision along the lateral aspect of the Achilles and the lateral hindfoot Iodoform gauze packing in place. The medial aspect of the lower leg has persistent ulcerations. Small amount of iodoform gauze was removed. Dorsal second toe and second MTP incision is well approximated. Small amount of iodoform gauze was removed today. Small ulceration to the lateral aspect of the incision. Neurologic: + abnormal touch/pain/proprioception (Decreased sensation bilateral lower extremities) Psychiatric: A+Ox3, euthymic affect Speech: normal rate/rhythm/volume of speech Results & Data ([facility]) Vital Signs (Past 12 Hours) Vital Signs Temp Pulse Resp BP Pulse Ox 10/14/21 07:59 37.1 C 89 16 117/71 97 10/13/21 22:39 37.1 C 103 H 16 114/74 95
[2021-10-14] MEDS: HYDROmorphone INJ 0.5 MG/0.5 ML SYR IV PRN (09:57)
[2021-10-14] MEDS ORDERED: VANCOMYCIN TROUGH ONE (11:30)
[2021-10-14] MEDS: VANCOMYCIN HCL 750 MG in SODIUM CHLORIDE 0.9% 250 ML IV SCH (12:21)
--- NOTE | 2021-10-14 12:54 | Pharmacy Report ---
Pharmacy Vanc AUC Short Note - Date of Service October 14, 2021 - Assessment & Plan Assessment 41 year old M receiving vancomycin/cefepime/flagyl for treatment of L ankle abscess. POD #2 I&D. Blood and wound cultures negative to date. Renal function significantly deteriorated today, SCr 1.22 --> 1.41. Day #5 of antimicrobial therapy. Plan Vancomycin * AUC/RENAN is the preferred PK/PD target for vancomycin * AUC guided dosing is effective and associated with decreased risk of nephrotoxicity compared to traditional trough targets * Trough level of 23.5mcg/mL is supratherapeutic at steady state and drawn appropriately. * Vanc 750mg q12h discontinued. Called RN to take down the 750mg dose that was hung @1221. ~120mg of dose infused. * Plan to hold vanc today to allow clearance. Random level ordered for 12/20 AM prior to re-dosing due to acutely changing renal function. Pharmacy will continue to follow and will adjust dose/frequency as necessary. Thank you.
[2021-10-14] MEDS: SENNA 8.6 MG TAB PO SCH (19:52)
[2021-10-15] MEDS: HYDROmorphone INJ 0.5 MG/0.5 ML SYR IV PRN (06:07)
[2021-10-15] MEDS: CEFEPIME 2,000 MG in SYRINGE 0 ML IV SCH ×3 (06:09→22:00)
--- NOTE | 2021-10-15 07:41 | Hospitalist Progress Note ---
Date of Service October 15, 2021 Assessment & Plan (1) Venous stasis ulcer of right lower leg with edema of right lower leg: Plan: (1) Venous stasis ulcer of left lower leg with edema of left lower leg: Plan: Mr. Sharif is a 41 year old male with a history of a Pancreatic Mass (Pseudocyst), Portal Venous Thrombosis, Stage IV CKD, Secondary Hyperparathyroidism, MVP with Moderate MR, Pancreatitis, Alcohol Use Disorder, Chronic Venous Insufficiency, Chronic Venous Stasis Ulcers/Wounds, and a Coagulopathy (on chronic Lovenox, failed on Eliquis) -- who presented to the ER to after awakening with a severe throbbing pain in his left foot that he noticed when he woke up. He noticed a large blister over top his left Achilles tendon ruptured and bled and continues to ooze blood at this point. An x-ray was done of his left foot and ankle and suggested an osteomyelitis at the dorsal base of the left 5th toe proximal phalanx. With evidence of osteomyelitis and a probable left leg cellulitis patient is being admitted for IV antibiotics. Admitted to medical/surgical Suspect recurrent infections in the setting of poor nutrition, alcoholism, possible seeding On initial empiric cefepime/vancomycin/Flagyl Orthopedic surgery consulted for osteomyelitis. Status post debridement/washout 10/12 daily dressing change, packing removed completely from right side, some packing remains on left Leukocytosis downtrending from 14.41-->11.73 on 10/15 Blood cultures 10/10 no growth to date Prior wound cultures with Pseudomonas stutzeri, Coag Neg Staph, Acinetobacter Wound culture 10/12 pinpoint growth, reincubating -consulted ID recommend IV cefepime vancomycin 4 weeks -coordinating with case management to arrange outpatient IV antibiotics (2) Cellulitis: Plan: -- Manage as outlined above. (3) Osteomyelitis of ankle or foot, left, acute: Plan: Left Foot and Ankle X-ray shows osteomyelitis at the dorsal base of the left 5th toe proximal phalanx. -- Antibiotics and Ortho Consult as Noted above (4) Portal vein thrombosis: Plan: History of Portal Vein Thrombosis which is likely the result of his Coagulopathy and Pancreatic Pseudocyst compressing the venous structures. -- This is likely contributing to his chronic venous insufficiency as well. -- Patient failed on Eliquis in the past. -- Continue Lovenox therapeutic dosing 100 mg every 12 hours, resumed on 10/15 (5) Coagulopathy: Plan: Anticoagulation as above (6) Chronic kidney disease with symptom management only, stage 4 (severe): Plan: - Cr 1.25 - Renally dose medications - BUN/Cr Ratio 9.9 - Avoid nephrotoxins - Trend BMP daily (7) Gait Difficulty -due to recent surgery on b/l lower extremities, patient has partial weight bearing status on RLE and nonweightbearing status on LLE -evaluated by PT, patient unable to walk until weight bearing status upgraded by ortho, recommend bedside commode and manual wheelchair with b/l elevated leg rests for mobility FENa: regular diet Code Status: full DVT PPX: lovenox PT/OT: ordered Case Management: home health therapy and nursing wound care Dispo: Laney Blanca Do PGY 1, FCM (2) Venous stasis ulcer of left lower leg with edema of left lower leg: (3) Status post left foot surgery: (4) Osteomyelitis of ankle or foot, left, acute: (5) Chronic kidney disease with symptom management only, stage 4 (severe): (6) Coagulopathy: (7) Portal vein thrombosis: (8) Gait difficulty: Admission and Anticipated Discharge Date Admission Date: October 10, 2021 Supervising Physician Co-Signing Physician Notes Patient seen and examined, chart reviewed, case discussed with Dr. Montoya and I agree with the assessment and plan as above except as otherwise noted Anthony is a 41-year-old male with a history of venous stasis, pancreatic mass, portal venous thrombosis, alcohol use, and lower extremity infections who has been admitted and treated for bilateral lower extremity abscesses with concern for osteomyelitis. Seen at bedside, patient reports he feels like he is doing well, but is very concerned for the plan moving forward due to his recurrent infections. Has been seen by Ortho, had packing removed today with remaining packing to be removed tomorrow morning. He feels he is tolerating this well and is not in pain at rest. Has not had fever/chills overnight. At bedside assessment patient legs wrapped with dressing C/D/Bi, with sensation intact in toes bilaterally to soft touch and symmetrical upper extremity movement, symmetrical chest rise with unlabored breathing, radial pulse intact with regular rate. Virtual infectious disease consult was performed with patient and Devaughner ID today, case reviewed including multiple prior wound culture results for Pseudomonas/[employer]/Acinetobacter, and recommend continuing cefepime IV and vancomycin IV for 4 weeks with weekly CMP/CBC/Vanco trough and biweekly CRP and close follow-up to wound care. Patient to have PICC placed as ultrasound-guided IV is not suitable for vancomycin. Discussed with case management will work on facilitating with infusion services. Close follow-up to wound care will be critical for patient's access, this discussed with him and he is agreeable to this. Anticoagulation resumed. Patient with partial weightbearing status on right lower extremity, nonweightbearing to left lower extremity. Patient is unable to ambulate safely with walker and will require a manual wheelchair with bilateral elevated leg rests for mobility. Subjective 41yo Male here with b/l LE osteomyelitis s/p I&D 10/12, PMH Pancreatic Mass (Pseudocyst), Portal Venous Thrombosis, Stage IV CKD, Secondary Hyperparathyroidism, MVP with Moderate MR, Pancreatitis, Alcohol Use Disorder, Chronic Venous Insufficiency, Chronic Venous Stasis Ulcers/Wounds, and a Coagulopathy (on chronic Lovenox, failed on Eliquis). Patient seen at bedside, calm pleasant cooperative, states he is doing well. Patient understands he requires IV antibiotics to treat his b/l LE wounds, states ortho changed the dressing on his legs earlier today. Patient states he can maneuver on his right leg, understands he should keep his weight off his left leg for now. Review of Systems Review of Systems: Negative fever chills Negative headache dizziness Negative chest pain palpitations SOB Negative nausea vomitting diarrhea constipation Physical Exam Constitutional: average body habitus, cooperative and comfortable Respiratory: normal respiratory effort, lungs clear to auscultation Cardiovascular: RRR, no murmur, no edema Heart Sounds: normal S1 and normal S2 Gastrointestinal (Abdomen): normal bowel sounds, soft, nontender, no hepatosplenomegaly Skin: dark bruising noted on b/l dorsal surface of feet sparing toes. B/l pitting noted on lower extremities around wound wrappings Results & Data Results & Data ([facility]) Vital Signs (Past 12 Hours) Vital Signs Temp Pulse Resp BP Pulse Ox 10/14/21 22:50 36.7 C 93 H 16 118/79 97 Laboratory Results 10/15/21 10/15/21 10/15/21 Range/Units 05:35 05:35 05:32 WBC 11.73 H (4.8-10.8) K/uL RBC 2.69 L (4.7-6.1) M/uL Hgb 9.2 L (14.0-18.0) g/dL Hct 29.1 L (42-52) % MCV 108.2 H (80-100) fL MCH 34.2 H (25-34) pg MCHC 31.6 L (32-36) g/dL RDW Std Deviation 55.1 H (36.4-46.3) fL RDW Coeff of Machelle 14.0 (11.5-14.5) % Plt Count 431 H (130-400) K/uL MPV 8.7 (7.4-10.4) fL Immature Gran % (Auto) 0.3 % Neut % (Auto) 65.4 % Lymph % (Auto) 13.9 % [place] % (Auto) 10.0 % Eos % (Auto) 9.8 % Baso % (Auto) 0.6 % Neut # (Auto) 7.68 H (1.4-6.5) K/uL Lymph # (Auto) 1.63 (1.2-3.4) K/uL [place] # (Auto) 1.17 H (0.11-0.59) K/uL Eos # (Auto) 1.15 H (0-0.5) K/uL Baso # (Auto) 0.07 (0-0.2) K/uL Immature Gran # (Auto) 0.03 H (0.00-0.02) K/uL Sodium 142 (136-145) mmol/L Potassium 3.5 (3.5-5.1) mmol/L Chloride 111 H (98-107) mmol/L Carbon Dioxide 25 (21-32) mmol/L Anion Gap 6.0 (3-11) BUN 14 (7-18) mg/dl Creatinine 1.25 (0.6-1.4) mg/dl Est Cr Clr Drug Dosing 93.6 ml/min Est GFR ( Amer) 81.2 ml/min Est GFR (Non-Af Amer) 70.1 ml/min BUN/Creatinine Ratio 11.0 (10-20) Glucose 91 (70-99) mg/dl Calcium 8.8 (8.5-10.1) mg/dl Random Vancomycin 16.1 mcg/ml Diagnostic Findings Ankle X-Ray 10/10/21 11:57 XR ankle LT min 3V routine, XR foot LT min 3V routine HISTORY: Posterior ankle abscess r/o osteomyelitis. Left foot swelling. COMPARISON STUDY: Left foot radiograph 08/20/2021. FINDINGS: Soft tissue gas adjacent to the fifth metatarsal has resolved in the interval. No acute fracture or dislocation within the left ankle or left foot. The Lisfranc joint is intact. Dorsal soft tissue swelling within the forefoot has slightly improved. Best seen on the lateral view there appear to be focal cortical destruction at the dorsal base of the left fifth toe proximal phalanx. This is new from the prior study and likely represents focal area of osteomyelitis. Degenerative changes at the talonavicular joint again noted. Small plantar and posterior calcaneal spurs. 3.2 cm focal skin ulceration along the medial malleolus. Focal soft tissue swelling with possible skin blister at the posterior ankle. No bony destruction within the ankle to suggest an osteomyelitis. The bones are osteopenic. IMPRESSION: 1. Small focal area of cortical destruction at the dorsal base of the left fifth toe proximal phalanx. This is new from the prior study and likely represents osteomyelitis. 2. A 3.2 cm skin ulceration at the medial malleolus. No underlying bony destruction. 3. Focal soft tissue swelling at the posterior ankle with a probable skin blister. ACT 112: Negative or not required by law. Electronically signed by: Omar Duque M.D. 10/10/2021 1:08 PM Foot X-Ray 10/10/21 11:57 XR ankle LT min 3V routine, XR foot LT min 3V routine HISTORY: Posterior ankle abscess r/o osteomyelitis. Left foot swelling. COMPARISON STUDY: Left foot radiograph 08/20/2021. FINDINGS: Soft tissue gas adjacent to the fifth metatarsal has resolved in the interval. No acute fracture or dislocation within the left ankle or left foot. The Lisfranc joint is intact. Dorsal soft tissue swelling within the forefoot has slightly improved. Best seen on the lateral view there appear to be focal cortical destruction at the dorsal base of the left fifth toe proximal phalanx. This is new from the prior study and likely represents focal area of osteomyelitis. Degenerative changes at the talonavicular joint again noted. Small plantar and posterior calcaneal spurs. 3.2 cm focal skin ulceration along the medial malleolus. Focal soft tissue swelling with possible skin blister at the posterior ankle. No bony destruction within the ankle to suggest an osteomyelitis. The bones are osteopenic. IMPRESSION: 1. Small focal area of cortical destruction at the dorsal base of the left fifth toe proximal phalanx. This is new from the prior study and likely represents o steomyelitis. 2. A 3.2 cm skin ulceration at the medial malleolus. No underlying bony destruction. 3. Focal soft tissue swelling at the posterior ankle with a probable skin blister. ACT 112: Negative or not required by law. Electronically signed by: Omar Duque M.D. 10/10/2021 1:08 PM Ankle MRI 10/11/21 11:31 MR foot LT wo/w con, MR ankle LT wo/w con HISTORY: 41 years-old Male assess osteo of foot acute pain and swelling of the left foot and ankle. Clinical concern prostate myelitis. COMPARISON: Left foot and ankle radiographs 10/10/2021, MRI left foot 08/24/2021. TECHNIQUE: Multiplanar multisequence MRI of the left foot and ankle was obtained both with and without the use of 9 mL Gadavist FINDINGS: FOOT: No acute fracture, dislocation, significant bone marrow edema, or osseous erosion identified. The recently questioned osseous erosion involving the base of the fifth proximal phalanx is not confirmed and was likely artifactual. There is severe degeneration of the talonavicular joint with associated marginal spurring and subcortical cystic change. There is moderate diffuse subcutaneous and deep tissue edema which demonstrates associated enhancement within the dorsal subcutaneous distribution most prominently. There is diffuse intrinsic atrophy of the musculature. No fluid collection to suggest abscess. The imaged flexor and extensor tendons appear intact. No tenosynovitis. ANKLE: 2.8 cm ulcer of the posterior medial ankle on image 16. Additional areas of subcutaneous ulceration involving the posterior ankle with a large area of phlegmonous change measuring 4.6 x 2.0 x 3.8 cm within the posterior lateral tissues extending into the pre-Achilles fat pad. This also encases the left lateral and posterior portions of the Achilles tendon. Moderate associated skin thickening with heterogeneous enhancement within this distribution. Additionally, there are areas of intrinsic increased T1 signal as seen on image 20 of series 20. No drainable fluid collection. There is diffuse subcutaneous, deep tissue and intramuscular edema with atrophy of the intrinsic musculature suggestive of chronic denervation changes. Suboptimal evaluation of the tendons and ligaments secondary to motion artifact. Severe degeneration of the talonavicular joint with associated subcortical cystic change. Mild patchy edema within the calcaneus is likely reactive. No osseous erosions or definitive evidence of osteomyelitis. Marrow edema with mild enhancement about the lateral calcaneal body. The talar dome is smooth. IMPRESSION: 1. Cellulitis with soft tissue ulcers of the medial and posterolateral ankle/hindfoot. Additionally, there is a 4.6 cm phlegmon of the ankle which extends into the pre-Achilles fat pad and demonstrates areas of increased T1 signal which may represent trace associated hemorrhage or medicinal material from incision and drainage. No drainable abscess identified at this time. 2. Mild marrow edema with enhancement is noted involving the subcortical aspect of the lateral calcaneal body. This may represent reactive osteitis versus early developing osteomyelitis. No cortical erosions. 3. No MR evidence of osteomyelitis within the foot. ACT 112: Negative or not required by law. The above report was generated using voice recognition software. It may contain grammatical, syntax or spelling errors. Electronically signed by: Kahill Fisher M.D. 10/11/2021 8:21 PM Foot MRI 10/11/21 11:31 MR foot LT wo/w con, MR ankle LT wo/w con HISTORY: 41 years-old Male assess osteo of foot acute pain and swelling of the left foot and ankle. Clinical concern prostate myelitis. COMPARISON: Left foot and ankle radiographs 10/10/2021, MRI left foot 2020. TECHNIQUE: Multiplanar multisequence MRI of the left foot and ankle was obtained both with and without the use of 9 mL Gadavist FINDINGS: FOOT: No acute fracture, dislocation, significant bone marrow edema, or osseous erosion identified. The recently questioned osseous erosion involving the base of the fifth proximal phalanx is not confirmed and was likely artifactual. There is severe degeneration of the talonavicular joint with associated marginal spurring and subcortical cystic change. There is moderate diffuse subcutaneous and deep tissue edema which demonstrates associated enhancement within the dorsal subcutaneous distribution most prominently. There is diffuse intrinsic atrophy of the musculature. No fluid collection to suggest abscess. The imaged flexor and extensor tendons appear intact. No tenosynovitis. ANKLE: 2.8 cm ulcer of the posterior medial ankle on image 16. Additional areas of subcutaneous ulceration involving the posterior ankle with a large area of phle gmonous change measuring 4.6 x 2.0 x 3.8 cm within the posterior lateral tissues extending into the pre-Achilles fat pad. This also encases the left lateral and posterior portions of the Achilles tendon. Moderate associated skin thickening with heterogeneous enhancement within this distribution. Additionally, there are areas of intrinsic increased T1 signal as seen on image 20 of series 20. No alex inable fluid collection. There is diffuse subcutaneous, deep tissue and intramuscular edema with atrophy of the intrinsic musculature suggestive of chronic denervation changes. Suboptimal evaluation of the tendons and ligaments secondary to motion artifact. Severe degeneration of the talonavicular joint with associated subcortical cystic change. Mild patchy edema within the calcaneus is likely reactive. No osseous erosions or definitive evidence of osteomyelitis. Marrow edema with mild enhancement about the lateral calcaneal body. The talar dome is smooth. IMPRESSION: 1. Cellulitis with soft tissue ulcers of the medial and posterolateral ankle/hindfoot. Additionally, there is a 4.6 cm phlegmon of the ankle which extends into the pre-Achilles fat pad and demonstrates areas of increased T1 signal which may represent trace associated hemorrhage or medicinal material from incision and drainage. No drainable abscess identified at this time. 2. Mild marrow edema with enhancement is noted involving the subcortical aspect of the lateral calcaneal body. This may represent reactive osteitis versus early developing osteomyelitis. No cortical erosions. 3. No MR evidence of osteomyelitis within the foot. ACT 112: Negative or not required by law. The above report was generated using voice recognition software. It may contain grammatical, syntax or spelling errors. Electronically signed by: Kahlil Fisher M.D. 10/11/2021 8:21 PM Medications Administered Current Inpatient Medications Acetaminophen (Acetaminophen 325 Mg Tab) 650 mg PO Q4H PRN PRN Reason: pain/fever Stop: 11/09/21 18:01 Al Hydrox/Mg Hydrox/Simethicone (Aluminum/Magnesium Susp 30 Ml Udc) 30 ml PO Q6H PRN PRN Reason: Dyspepsia Stop: 11/09/21 18:01 Allopurinol (Allopurinol 100 Mg Tab) 100 mg PO DAILY [facility] Stop: 11/09/21 20:59 Last Admin: 10/15/21 08:44 Dose: 100 mg Documented by: Bisacodyl (Bisacodyl 10 Mg Supp) 10 mg UT DAILY PRN PRN Reason: Constipation Stop: 11/11/21 13:30 Docusate Sodium (Docusate Sodium 100 Mg Cap) 100 mg PO BID [facility] Stop: 11/11/21 20:59 Last Admin: 10/15/21 08:44 Dose: 100 mg Documented by: Enoxaparin Sodium (Enoxaparin 100 Mg/1ml Syr) 100 mg SQ Q12H [facility] Stop: 11/09/21 18:59 Last Admin: 10/11/21 06:01 Dose: 100 mg Documented by: Hydromorphone HCl (Hydromorphone Inj 0.5 Mg/0.5 Ml Syr) 0.5 mg IV Q4H PRN PRN Reason: Pain or Pre PT Stop: 10/26/21 13:30 Last Admin: 10/15/21 06:07 Dose: 0.5 mg Documented by: Cefepime HCl 2,000 mg/ Syringe 20 mls @ 5 mls/min IV Q8H [facility]; Protocol Stop: 11/21/21 21:59 Last Admin: 10/15/21 13:35 Dose: 5 mls/min Documented by: Prochlorperazine 5 mg/ Syringe 5 mls @ 5 mls/min IV Q6H PRN PRN Reason: Nausea And Vomiting Stop: 11/12/21 09:21 Vancomycin HCl 1,250 mg/ (Sodium Chloride) 275 mls @ 200 mls/hr IV Q24H [facility]; Protocol Stop: 11/26/21 07:59 Last Infusion: 10/15/21 10:00 Dose: Infused Documented by: Magnesium Hydroxide (Magnesium Hydroxide Susp 30 Ml Udc) 30 ml PO Q6H PRN PRN Reason: Constipation Stop: 11/09/21 18:01 Magnesium Hydroxide (Magnesium Hydroxide Susp 30 Ml Udc) 30 ml PO Q6H PRN PRN Reason: Constipation Stop: 11/11/21 13:30 Miscellaneous Information (Vancomycin Consult Active) 1 ea N/A UD PRN PRN Reason: Consult Stop: 11/09/21 18:01 Multivitamins (Multivitamin Tab) 1 tab PO QAM [facility] Stop: 11/10/21 08:59 Last Admin: 10/15/21 08:44 Dose: 1 tab Documented by: Naloxone HCl (Naloxone Hcl 0.4 Mg/1 Ml Vial/Carp) 0.1 mg IV Q5M PRN PRN Reason: Oversedation/Resp Depression Stop: 11/11/21 13:30 Ondansetron HCl (Ondansetron Inj 2 Mg/Ml 2 Ml Vial) 4 mg IV Q6H PRN PRN Reason: Nausea Stop: 11/09/21 18:01 Last Admin: 10/13/21 06:34 Dose: 4 mg Documented by: Polyethylene Glycol (Polyethylene (Miralax) 17 Gm Pack) 17 gm PO DAILY PRN PRN Reason: Constipation Stop: 11/09/21 18:01 Sennosides (Senna 8.6 Mg Tab) 17.2 mg PO HS [facility] Stop: 11/11/21 20:59 Last Admin: 10/14/21 19:52 Dose: 17.2 mg Documented by: Thiamine HCl (Thiamine Hcl 100 Mg Tab) 300 mg PO QAM [facility] Stop: 11/10/21 08:59 Last Admin: 10/15/21 08:45 Dose: 300 mg Documented by: Zolpidem Tartrate (Zolpidem Tartrate 5 Mg Tab) 5 mg PO HS PRN PRN Reason: Sleep Stop: 11/09/21 18:01 Resident Activity Tracking Resident Involvement: Resident Care Provided Care Provided: Adult Hospital Medicine
--- NOTE | 2021-10-15 08:12 | Pharmacy Report ---
Pharmacy [facility] Short Note - Date of Service October 15, 2021 - Assessment & Plan Assessment 41 year old M receiving vancomycin/cefepime/flagyl for treatment of L ankle abscess. POD #2 I&D. Blood and wound cultures negative to date. No labs ordered for this morning, labs ordered for tomorrow AM. Day #6 of antimicrobial therapy. Plan Vancomycin * Random level of 16.1 mcg/mL this AM is therapeutic. * Change to 1250 mg IV every 24 hours * Goal trough: 15-20 mcg/mL * Next trough ordered for 10/17/21 Pharmacy will continue to follow and will adjust dose/frequency as necessary. Thank you.
[2021-10-15] MEDS: VANCOMYCIN HCL 1,250 MG in SODIUM CHLORIDE 0.9% 250 ML IV SCH (08:39)
[2021-10-15] MEDS: allopurinoL 100 MG TAB PO SCH (08:44)
[2021-10-15] MEDS: metroNIDAZOLE 500 MG TAB PO SCH ×2 (08:44→13:35)
[2021-10-15] MEDS: MULTIVITAMIN TAB PO SCH (08:44)
[2021-10-15] MEDS: DOCUSATE SODIUM 100 MG CAP PO SCH ×2 (08:44→20:15)
[2021-10-15] MEDS: THIAMINE HCL 100 MG TAB PO SCH (08:45)
[2021-10-15 09:53] LABS: Calcium 8.8 mg/dl (8.5-10.1); Creatinine Clr Calc Pharmacy 93.6 ml/min; Est GFR (African American) 81.2 ml/min; Est GFR (Non-African American) 70.1 ml/min; Potassium 3.5 mmol/L (3.5-5.1)
[2021-10-15 09:55] LABS: Basophils # (auto) 0.07 K/uL (0-0.2); Basophils % (auto) 0.6 %; Eosinophils # (auto) 1.15 K/uL (0-0.5); Eosinophils % (auto) 9.8 %; Hematocrit (blood only) 29.1 % (42-52); Hemoglobin 9.2 g/dL (14.0-18.0); Immature Granulocytes # (auto) 0.03 K/uL (0.00-0.02); Immature Granulocytes % (auto) 0.3 %; Lymphocytes # (auto) 1.63 K/uL (1.2-3.4); Lymphocytes % (auto) 13.9 %; Mean Corpuscular Hemoglobin 34.2 pg (25-34); Mean Corpuscular Hgb Conc 31.6 g/dL (32-36); Mean Corpuscular Volume 108.2 fL (80-100); Mean Platelet Volume 8.7 fL (7.4-10.4); Monocytes # (auto) 1.17 K/uL (0.11-0.59); Neutrophils # (auto) 7.68 K/uL (1.4-6.5); Neutrophils % (auto) 65.4 %; Platelet Count 431 K/uL (130-400); RDW Standard Deviation 55.1 fL (36.4-46.3); Red Blood Count 2.69 M/uL (4.7-6.1); White Blood Count 11.73 K/uL (4.8-10.8)
--- NOTE | 2021-10-15 11:30 | Orthopedic Progress Note ---
Date of Service October 15, 2021 Assessment & Plan (1) Cellulitis: Plan: POD #3 s/p 1. Left ankle incision and drainage of abscess. 2. Tenosynovectomy septic left Achilles tendon. 3. Incision and drainage of abscess, lateral foot. 4. Incision and drainage, left second toe abscess. 5. Tenosynovectomy septic left second extensor tendon. 6. Tenosynovectomy, left third septic extensor tendon. 7. Incision and drainage of abscess in the medial left lower leg. 8. Application of antibiotic Stimulan beads, left lower extremity, multiple incisions as noted above. 9. Right ankle incision and drainage of abscess. 10. Tenosynovectomy, right septic Achilles tendon. 11. Application of antibiotic Stimulan beads, right lower extremity Dressing change today with iodoform gauze being removed completely from the right side. There is still packing left on the left achilles area after removal of 6-8 inches.. Nonweightbearing on left lower extremity but partial weightbearing on the right lower extremity for transferring. Continue IV Dapto. Awaiting intraoperative culture results. Pinpoint growth and being reincubated. Gram stain negative for organisms. Discharge planninguncertain at this time. Admission and Anticipated Discharge Date Admission Date: October 10, 2021 Subjective Doing well. Pain controlled in BLE. No new complaints. Physical Exam Constitutional: WD/WN, vitals as above Musculoskeletal: Ankle: + surgical incision (Bilateral foot and ankle: Dressing C/D/I); no surgical drain present Left ankle: Well approximated lateral hindfoot and achilles incision. Bloody drainage from posterior ulcer over the achilles. Healing medial lower leg ulcers. Right ankle: Well approximated medial achilles incision. Moderate bloody drainage from the packing site after the rest of the packing was removed. Neurologic: + abnormal touch/pain/proprioception (Decreased sensation bilateral lower extremities) Psychiatric: A+Ox3, euthymic affect Speech: normal rate/rhythm/volume of speech Results & Data ([facility]) Vital Signs (Past 12 Hours) Vital Signs Temp Pulse Resp BP Pulse Ox 10/15/21 07:41 36.8 C 85 16 137/79 98 Laboratory Results Gram Stain Final 10/12/21-1218 Gram Stain Result Few Polys No Organisms Seen Phoned results to OR (ADRYAN MARIA) on 10/12/21 at 1218 by David Zuleta and results were verbalized back. Aero/Marissa Cult Preliminary 12/20/21-0923 Pin-point growth present, reincubating.
[2021-10-15] MEDS: SENNA 8.6 MG TAB PO SCH (20:15)
[2021-10-15] MEDS: ENOXAPARIN 100 MG/1ML SYR SQ SCH (20:53)
[2021-10-16] MEDS: CEFEPIME 2,000 MG in SYRINGE 0 ML IV SCH ×3 (05:21→21:31)
[2021-10-16 06:39] LABS: Hematocrit (blood only) 29.5 % (42-52); Hemoglobin 9.6 g/dL (14.0-18.0); Mean Corpuscular Hemoglobin 34.5 pg (25-34); Mean Corpuscular Hgb Conc 32.5 g/dL (32-36); Mean Corpuscular Volume 106.1 fL (80-100); Mean Platelet Volume 8.4 fL (7.4-10.4); Platelet Count 442 K/uL (130-400); RDW Coefficient of Variation 13.9 % (11.5-14.5); RDW Standard Deviation 54.4 fL (36.4-46.3); Red Blood Count 2.78 M/uL (4.7-6.1); White Blood Count 11.15 K/uL (4.8-10.8)
[2021-10-16 07:21] LABS: BUN Creatinine Ratio 12.6 (10-20); Creatinine Clr Calc Pharmacy 90.7 ml/min; Est GFR (African American) 78.2 ml/min; Est GFR (Non-African American) 67.5 ml/min; Potassium 2.9 mmol/L (3.5-5.1)
[2021-10-16] MEDS: HYDROmorphone INJ 0.5 MG/0.5 ML SYR IV PRN ×3 (07:29→21:31)
--- NOTE | 2021-10-16 08:00 | Hospitalist Progress Note ---
Date of Service October 16, 2021 Assessment & Plan (1) Venous stasis ulcer of right lower leg with edema of right lower leg: Plan: (1) Venous stasis ulcer of left lower leg with edema of left lower leg: Plan: Mr. Sharif is a 41 year old male with a history of a Pancreatic Mass (Pseudocyst), Portal Venous Thrombosis, Stage IV CKD, Secondary Hyperparathyroidism, MVP with Moderate MR, Pancreatitis, Alcohol Use Disorder, Chronic Venous Insufficiency, Chronic Venous Stasis Ulcers/Wounds, and a Coagulopathy (on chronic Lovenox, failed on Eliquis) -- who presented to the ER to after awakening with a severe throbbing pain in his left foot that he noticed when he woke up. He noticed a large blister over top his left Achilles tendon ruptured and bled and continues to ooze blood at this point. An x-ray was done of his left foot and ankle and suggested an osteomyelitis at the dorsal base of the left 5th toe proximal phalanx. With evidence of osteomyelitis and a probable left leg cellulitis patient is being admitted for IV antibiotics. Admitted to medical/surgical Suspect recurrent infections in the setting of poor nutrition, alcoholism, possible seeding On initial empiric cefepime/vancomycin/Flagyl Orthopedic surgery consulted for osteomyelitis. Status post debridement/washout 10/12 daily dressing change, packing removed completely from both legs Leukocytosis downtrending from 14.41-->11.73 on 10/15 Blood cultures 10/10 no growth to date Prior wound cultures with Pseudomonas stutzeri, Coag Neg Staph, Acinetobacter Wound culture 10/12 pinpoint growth, reincubating low counts mixed likely skin microbiota -consulted ID recommend IV cefepime vancomycin 4 weeks starting from 10/12 -potassium level 2.9, repleted with PO and IV potassium, recheck 3.3 -Magnesium level 1.6 repleting with PO magnesium -IV thiamine daily -coordinating with case management, abx, commode, wheelchair ordered, home health available on 10/18 -picc line placed 10/16 (2) Cellulitis: Plan: -- Manage as outlined above. (3) Osteomyelitis of ankle or foot, left, acute: Plan: Left Foot and Ankle X-ray shows osteomyelitis at the dorsal base of the left 5th toe proximal phalanx. -- Antibiotics and Ortho Consult as Noted above (4) Portal vein thrombosis: Plan: History of Portal Vein Thrombosis which is likely the result of his Coagulopathy and Pancreatic Pseudocyst compressing the venous structures. -- This is likely contributing to his chronic venous insufficiency as well. -- Patient failed on Eliquis in the past. -- Continue Lovenox therapeutic dosing 100 mg every 12 hours, resumed on 10/15 (5) Hx Gout Plan: continue allopurinol 100mg daily (6) Chronic kidney disease with symptom management only, stage 4 (severe): Plan: - Cr 1.37 - Renally dose medications - BUN/Cr Ratio 12.3 - Avoid nephrotoxins - Trend BMP daily (7) Gait Difficulty -due to recent surgery on b/l lower extremities, patient has partial weight bearing status on RLE and nonweightbearing status on LLE -evaluated by PT, patient unable to walk until weight bearing status upgraded by ortho, recommend bedside commode and manual wheelchair with b/l elevated leg rests for mobility FENa: regular diet Code Status: full DVT PPX: lovenox PT/OT: ordered Case Management: home health therapy and nursing wound care Dispo: Laney Blanca Do PGY 1, FCM (2) Venous stasis ulcer of left lower leg with edema of left lower leg: (3) Status post left foot surgery: (4) Osteomyelitis of ankle or foot, left, acute: (5) Chronic kidney disease with symptom management only, stage 4 (severe): (6) Coagulopathy: (7) Portal vein thrombosis: (8) Gait difficulty: Admission and Anticipated Discharge Date Admission Date: October 10, 2021 Supervising Physician Co-Signing Physician Notes Patient seen and examined, chart reviewed, case discussed with Dr. Montoya and I agree with the assessment and plan as above except as otherwise noted Anthony is a 41-year-old male with a history of venous stasis, pancreatic mass, portal venous thrombosis, alcohol use, and lower extremity infections who has been admitted and treated for bilateral lower extremity abscesses with concern for osteomyelitis. Seen at bedside, patient feels he is continuing to do well. Is concerned for worsening moving forward, and is nervous because of his recurrences but feels well overall. All packing removed from wound by Ortho. No fever/chills. Some pain at right inferior patella and hamstrings, without joint line tenderness and flexion/extension intact. Knee is without warmth/erythema. Pulse regular, skin warm and dry, lower extremities well dressed bilaterally with surgical dressing and wraps in place. Toe flexion/extension bilaterally intact, sensation to soft touch in feet intact. Cellulitis/osteomyelitis: PICC Placed successfully today. Home health referrals made, will be available morning. Patient will able to be discharged tomorrow evening after antibiotic doses. Clinically stable, doing well at this time. Remains with partial weightbearing status on right lower extremity, nonweightbearing to left lower extremity. Patient is unable to ambulate safely with walker and will require a manual wheelchair with bilateral elevated leg rests for mobility. R Knee Pain: Appears musculoskeletal, flexion extension intact. Does not appear acutely infected/septic arthritis extension of cellulitis, however continue to reassess daily. Given risk with multifocal abscesses. Subjective 41yo Male here with b/l LE osteomyelitis s/p I&D 10/12, PMH Pancreatic Mass (Pseudocyst), Portal Venous Thrombosis, Stage IV CKD, Secondary Hyperparathyroidism, MVP with Moderate MR, Pancreatitis, Alcohol Use Disorder, Chronic Venous Insufficiency, Chronic Venous Stasis Ulcers/Wounds, and a Coagulopathy (on chronic Lovenox, failed on Eliquis). Patient seen at bedside, calm pleasant cooperative, states he is doing well. Patient states he has some pain in b/l knees from staying in bed too long. Review of Systems Review of Systems: Negative fever chills Negative headache dizziness Negative chest pain palpitations SOB Negative nausea vomitting diarrhea constipation Physical Exam Constitutional: average body habitus, cooperative and comfortable Respiratory: normal respiratory effort, lungs clear to auscultation Cardiovascular: RRR, no murmur, no edema Heart Sounds: normal S1 and normal S2 Gastrointestinal (Abdomen): normal bowel sounds, soft, nontender, no hepatosplenomegaly Musculoskeletal: Knee: no effusion and no skin erythema (tender to palpation b/l) Results & Data Results & Data ([facility]) Vital Signs (Past 12 Hours) Vital Signs Temp Pulse Resp BP Pulse Ox 10/16/21 07:45 36.8 C 82 16 149/99 H 95 Laboratory Results 10/16/21 10/16/21 10/16/21 Range/Units 15:48 06:18 06:18 WBC (4.8-10.8) K/uL RBC (4.7-6.1) M/uL Hgb (14.0-18.0) g/dL Hct (42-52) % MCV (80-100) fL MCH (25-34) pg MCHC (32-36) g/dL RDW Std Deviation (36.4-46.3) fL RDW Coeff of Machelle (11.5-14.5) % Plt Count (130-400) K/uL MPV (7.4-10.4) fL Sodium 139 139 (136-145) mmol/L Potassium 3.3 L 2.9 L D (3.5-5.1) mmol/L Chloride 109 H 109 H (98-107) mmol/L Carbon Dioxide 24 25 (21-32) mmol/L Anion Gap 6.0 5.0 (3-11) BUN 17 16 (7-18) mg/dl Creatinine 1.37 1.29 (0.6-1.4) mg/dl Est Cr Clr Drug Dosing 85.4 90.7 ml/min Est GFR ( Amer) 72.7 78.2 ml/min Est GFR (Non-Af Amer) 62.7 67.5 ml/min BUN/Creatinine Ratio 12.3 12.6 (10-20) Glucose 127 H 108 H (70-99) mg/dl Calcium 8.9 9.0 (8.5-10.1) mg/dl Phosphorus 1.6 L (2.5-4.9) mg/dl Magnesium 1.6 L (1.8-2.4) mg/dl 10/16/21 Range/Units 06:18 WBC 11.15 H (4.8-10.8) K/uL RBC 2.78 L (4.7-6.1) M/uL Hgb 9.6 L (14.0-18.0) g/dL Hct 29.5 L (42-52) % MCV 106.1 H (80-100) fL MCH 34.5 H (25-34) pg MCHC 32.5 (32-36) g/dL RDW Std Deviation 54.4 H (36.4-46.3) fL RDW Coeff of Machelle 13.9 (11.5-14.5) % Plt Count 442 H (130-400) K/uL MPV 8.4 (7.4-10.4) fL Sodium (136-145) mmol/L Potassium (3.5-5.1) mmol/L Chloride (98-107) mmol/L Carbon Dioxide (21-32) mmol/L Anion Gap (3-11) BUN (7-18) mg/dl Creatinine (0.6-1.4) mg/dl Est Cr Clr Drug Dosing ml/min Est GFR ( Amer) ml/min Est GFR (Non-Af Amer) ml/min BUN/Creatinine Ratio (10-20) Glucose (70-99) mg/dl Calcium (8.5-10.1) mg/dl Phosphorus (2.5-4.9) mg/dl Magnesium (1.8-2.4) mg/dl Diagnostic Findings Ankle X-Ray 10/10/21 11:57 XR ankle LT min 3V routine, XR foot LT min 3V routine HISTORY: Posterior ankle abscess r/o osteomyelitis. Left foot swelling. COMPARISON STUDY: Left foot radiograph 08/20/2021. FINDINGS: Soft tissue gas adjacent to the fifth metatarsal has resolved in the interval. No acute fracture or dislocation within the left ankle or left foot. The Lisfranc joint is intact. Dorsal soft tissue swelling within the forefoot has slightly improved. Best seen on the lateral view there appear to be focal cortical destruction at the dorsal base of the left fifth toe proximal phalanx. This is new from the prior study and likely represents focal area of osteo myelitis. Degenerative changes at the talonavicular joint again noted. Small plantar and posterior calcaneal spurs. 3.2 cm focal skin ulceration along the medial malleolus. Focal soft tissue swelling with possible skin blister at the posterior ankle. No bony destruction within the ankle to suggest an osteomyelitis. The bones are osteopenic. IMPRESSION: 1. Small focal area of cortical destruction at the dorsal base of the left fifth toe proximal phalanx. This is new from the prior study and likely represents osteomyelitis. 2. A 3.2 cm skin ulceration at the medial malleolus. No underlying bony destruction. 3. Focal soft tissue swelling at the posterior ankle with a probable skin blister. ACT 112: Negative or not required by law. Electronically signed by: Omar Duque M.D. 10/10/2021 1:08 PM Foot X-Ray 10/10/21 11:57 XR ankle LT min 3V routine, XR foot LT min 3V routine HISTORY: Posterior ankle abscess r/o osteomyelitis. Left foot swelling. COMPARISON STUDY: Left foot radiograph 08/20/2021. FINDINGS: Soft tissue gas adjacent to the fifth metatarsal has resolved in the interval. No acute fracture or dislocation within the left ankle or left foot. The Lisfranc joint is intact. Dorsal soft tissue swelling within the forefoot has slightly improved. Best seen on the lateral view there appear to be focal cortical destruction at the dorsal base of the left fifth toe proximal phalanx. This is new from the prior study and likely represents focal area of osteomyelitis. Degenerative changes at the talonavicular joint again noted. Small plantar and posterior calcaneal spurs. 3.2 cm focal skin ulceration along the medial malleolus. Focal soft tissue swelling with possible skin blister at the posterior ankle. No bony destruction within the ankle to suggest an osteomyelitis. The bones are osteopenic. IMPRESSION: 1. Small focal area of cortical destruction at the dorsal base of the left fifth toe proximal phalanx. This is new from the prior study and likely represents osteomyelitis. 2. A 3.2 cm skin ulceration at the medial malleolus. No underlying bony destruction. 3. Focal soft tissue swelling at the posterior ankle with a probable skin blister. ACT 112: Negative or not required by law. Electronically signed by: Omar Duque M.D. 10/10/2021 1:08 PM Ankle MRI 10/11/21 11:31 MR foot LT wo/w con, MR ankle LT wo/w con HISTORY: 41 years-old Male assess osteo of foot acute pain and swelling of the left foot and ankle. Clinical concern prostate myelitis. COMPARISON: Left foot and ankle radiographs 10/10/2021, MRI left foot 08/24/2021. TECHNIQUE: Multiplanar multisequence MRI of the left foot and ankle was obtained both with and without the use of 9 mL Gadavist FINDINGS: FOOT: No acute fracture, dislocation, significant bone marrow edema, or osseous erosion identified. The recently questioned osseous erosion involving the base of the fifth proximal phalanx is not confirmed and was likely artifactual. There is severe degeneration of the talonavicular joint with associated marginal spurring and subcortical cystic change. There is moderate diffuse subcutaneous and deep tissue edema which demonstrates associated enhancement within the dorsal subcutaneous distribution most prominently. There is diffuse intrinsic atrophy of the musculature. No fluid collection to suggest abscess. The imaged flexor and extensor tendons appear intact. No tenosynovitis. ANKLE: 2.8 cm ulcer of the posterior medial ankle on image 16. Additional areas of subcutaneous ulceration involving the posterior ankle with a large area of phlegmonous change measuring 4.6 x 2.0 x 3.8 cm within the posterior lateral tissues extending into the pre-Achilles fat pad. This also encases the left lateral and posterior portions of the Achilles tendon. Moderate associated skin thickening with heterogeneous enhancement within this distribution. Additionally, there are areas of intrinsic increased T1 signal as seen on image 20 of series 20. No drainable fluid collection. There is diffuse subcutaneous, deep tissue and intramuscular edema with atrophy of the intrinsic musculature suggestive of chronic denervation changes. Suboptimal evaluation of the tendons and ligaments secondary to motion artifact. Severe degeneration of the talonavicular joint with associated subcortical cystic change. Mild patchy edema within the calcaneus is likely reactive. No osseous erosions or definitive evidence of osteomyelitis. Marrow edema with mild enhancement about the lateral calcaneal body. The talar dome is smooth. IMPRESSION: 1. Cellulitis with soft tissue ulcers of the medial and posterolateral ankle/hindfoot. Additionally, there is a 4.6 cm phlegmon of the ankle which extends into the pre-Achilles fat pad and demonstrates areas of increased T1 signal which may represent trace associated hemorrhage or medicinal material from incision and drainage. No drainable abscess identified at this time. 2. Mild marrow edema with enhancement is noted involving the subcortical aspect of the lateral calcaneal body. This may represent reactive osteitis versus early developing osteomyelitis. No cortical erosions. 3. No MR evidence of osteomyelitis within the foot. ACT 112: Negative or not required by law. The above report was generated using voice recognition software. It may contain grammatical, syntax or spelling errors. Electronically signed by: Kahlil Fisher M.D. 10/11/2021 8:21 PM Foot MRI 10/11/21 11:31 MR foot LT wo/w con, MR ankle LT wo/w con HISTORY: 41 years-old Male assess osteo of foot acute pain and swelling of the left foot and ankle. Clinical concern prostate myelitis. COMPARISON: Left foot and ankle radiographs 10/10/2021, MRI left foot 08/24/2021. TECHNIQUE: Multiplanar multisequence MRI of the left foot and ankle was obtained both with and without the use of 9 mL Gadavist FINDINGS: FOOT: No acute fracture, dislocation, significant bone marrow edema, or osseous erosion identified. The recently questioned osseous erosion involving the base of the fifth proximal phalanx is not confirmed and was likely artifactual. There is severe degeneration of the talonavicular joint with associated marginal spurring and subcortical cystic change. There is moderate diffuse subcutaneous and deep tissue edema which demonstrates associated enhancement within the dorsal subcutaneous distribution most prominently. There is diffuse intrinsic atrophy of the musculature. No fluid collection to suggest abscess. The imaged flexor and extensor tendons appear intact. No tenosynovitis. ANKLE: 2.8 cm ulcer of the posterior medial ankle on image 16. Additional areas of subcutaneous ulceration involving the posterior ankle with a large area of phlegmonous change measuring 4.6 x 2.0 x 3.8 cm within the posterior lateral tissues extending into the pre-Achilles fat pad. This also encases the left lateral and posterior portions of the Achilles tendon. Moderate associated skin thickening with heterogeneous enhancement within this distribution. Additionally, there are areas of intrinsic increased T1 signal as seen on image 20 of series 20. No drainable fluid collection. There is diffuse subcutaneous, deep tissue and intramuscular edema with atrophy of the intrinsic musculature suggestive of chronic denervation changes. Suboptimal evaluation of the tendons and ligaments secondary to motion artifact. Severe degeneration of the talonavicular joint with associated subcortical cystic change. Mild patchy edema within the calcaneus is likely reactive. No osseous erosions or definitive evidence of osteomyelitis. Marrow edema with mild enhancement about the lateral calcaneal body. The talar dome is smooth. IMPRESSION: 1. Cellulitis with soft tissue ulcers of the medial and posterolateral ankle/hindfoot. Additionally, there is a 4.6 cm phlegmon of the ankle which extends into the pre-Achilles fat pad and demonstrates areas of increased T1 signal which may represent trace associated hemorrhage or medicinal material from incision and drainage. No drainable abscess identified at this time. 2. Mild marrow edema with enhancement is noted involving the subcortical aspect of the lateral calcaneal body. This may represent reactive osteitis versus early developing osteomyelitis. No cortical erosions. 3. No MR evidence of osteomyelitis within the foot. ACT 112: Negative or not required by law. The above report was generated using voice recognition software. It may contain grammatical, syntax or spelling errors. Electronically signed by: Kahlil Fisher M.D. 10/11/2021 8:21 PM Medications Administered Current Inpatient Medications Acetaminophen (Acetaminophen 325 Mg Tab) 650 mg PO Q4H PRN PRN Reason: pain/fever Stop: 11/09/21 18:01 Al Hydrox/Mg Hydrox/Simethicone (Aluminum/Magnesium Susp 30 Ml Udc) 30 ml PO Q6H PRN PRN Reason: Dyspepsia Stop: 11/09/21 18:01 Allopurinol (Allopurinol 100 Mg Tab) 100 mg PO DAILY [facility] Stop: 11/09/21 20:59 Last Admin: 10/16/21 09:13 Dose: 100 mg Documented by: Bisacodyl (Bisacodyl 10 Mg Supp) 10 mg MN DAILY PRN PRN Reason: Constipation Stop: 11/11/21 13:30 Diclofenac Sodium (Diclofenac Sod 1% Gel 100 Gm Tube) 2 gm EXT TID PRN PRN Reason: Knee pain Stop: 11/15/21 13:59 Docusate Sodium (Docusate Sodium 100 Mg Cap) 100 mg PO BID [facility] Stop: 11/11/21 20:59 Last Admin: 10/16/21 09:15 Dose: Not Given Documented by: Enoxaparin Sodium (Enoxaparin 100 Mg/1ml Syr) 100 mg SQ Q12H [facility] Stop: 11/09/21 18:59 Last Admin: 10/16/21 10:43 Dose: 100 mg Documented by: Heparin Sodium (Beef Lung) (Heparin 10 Unit/Ml 5 Ml Flush) 5 ml FLUSH PRN PRN PRN Reason: Flush Stop: 11/15/21 12:16 Hydromorphone HCl (Hydromorphone Inj 0.5 Mg/0.5 Ml Syr) 0.5 mg IV Q4H PRN PRN Reason: Pain or Pre PT Stop: 10/26/21 13:30 Last Admin: 10/16/21 07:29 Dose: 0.5 mg Documented by: Cefepime HCl 2,000 mg/ Syringe 20 mls @ 5 mls/min IV Q8H [facility]; Protocol Stop: 11/21/21 21:59 Last Admin: 10/16/21 14:06 Dose: 5 mls/min Documented by: Prochlorperazine 5 mg/ Syringe 5 mls @ 5 mls/min IV Q6H PRN PRN Reason: Nausea And Vomiting Stop: 11/12/21 09:21 Vancomycin HCl 1,250 mg/ (Sodium Chloride) 275 mls @ 200 mls/hr IV Q24H [facility]; Protocol Stop: 11/26/21 07:59 Last Infusion: 10/16/21 10:54 Dose: Infused Documented by: Magnesium Hydroxide (Magnesium Hydroxide Susp 30 Ml Udc) 30 ml PO Q6H PRN PRN Reason: Constipation Stop: 11/09/21 18:01 Magnesium Hydroxide (Magnesium Hydroxide Susp 30 Ml Udc) 30 ml PO Q6H PRN PRN Reason: Constipation Stop: 11/11/21 13:30 Magnesium Oxide (Magnesium Oxide 400 Mg Tab) [facility] [place]: 11/15/21 09:14 Last Admin: 10/16/21 10:44 Dose: 400 mg Documented by: Miscellaneous Information (Vancomycin Consult Active) 1 ea N/A UD PRN PRN Reason: Consult Stop: 11/09/21 18:01 Multivitamins (Multivitamin Tab) [facility] Stop: 11/10/21 08:59 Last Admin: 10/16/21 09:13 Dose: 1 tab Documented by: Naloxone HCl (Naloxone Hcl 0.4 Mg/1 Ml Vial/Carp) 0.1 mg IV Q5M PRN PRN Reason: Oversedation/Resp Depression Stop: 11/11/21 13:30 Ondansetron HCl (Ondansetron Inj 2 Mg/Ml 2 Ml Vial) 4 mg IV Q6H PRN PRN Reason: Nausea Stop: 11/09/21 18:01 Last Admin: 10/13/21 06:34 Dose: 4 mg Documented by: Polyethylene Glycol (Polyethylene (Miralax) 17 Gm Pack) 17 gm PO DAILY PRN PRN Reason: Constipation Stop: 11/09/21 18:01 Potassium Chloride (Potassium Chloride Crtab 20 Meq Tabcr) 40 meq PO QAM [facility] Stop: 11/15/21 08:59 Last Admin: 10/16/21 09:13 Dose: 40 meq Documented by: Potassium Phosphate (Pot Phosphate Monobasic W/ Sod Tab) 1 tab PO QID [facility] Stop: 10/18/21 20:59 Sennosides (Senna 8.6 Mg Tab) 17.2 mg PO HS [facility] Stop: 11/11/21 20:59 Last Admin: 10/15/21 20:15 Dose: Not Given Documented by: Thiamine HCl (Thiamine Hcl 100 Mg Tab) 300 mg PO QAM [facility] Stop: 11/10/21 08:59 Last Admin: 10/16/21 09:13 Dose: 300 mg Documented by: Zolpidem Tartrate (Zolpidem Tartrate 5 Mg Tab) 5 mg PO HS PRN PRN Reason: Sleep Stop: 11/09/21 18:01 Resident Activity Tracking Resident Involvement: Resident Care Provided Care Provided: Adult Hospital Medicine
[2021-10-16] MEDS: VANCOMYCIN HCL 1,250 MG in SODIUM CHLORIDE 0.9% 250 ML IV SCH (09:07)
[2021-10-16] MEDS: POTASSIUM CHLORIDE CRTAB 20 MEQ TABCR PO SCH (09:13)
[2021-10-16] MEDS: allopurinoL 100 MG TAB PO SCH (09:13)
[2021-10-16] MEDS: THIAMINE HCL 100 MG TAB PO SCH (09:13)
[2021-10-16] MEDS: MULTIVITAMIN TAB PO SCH (09:13)
[2021-10-16] MEDS: DOCUSATE SODIUM 100 MG CAP PO SCH ×2 (09:15→20:17)
[2021-10-16] MEDS: ENOXAPARIN 100 MG/1ML SYR SQ SCH ×2 (10:43→20:39)
[2021-10-16] MEDS: POTASSIUM CHLORIDE / WTR 10 MEQ/100 ML PLCT IV SCH ×2 (10:44→12:07)
[2021-10-16] MEDS: MAGNESIUM OXIDE 400 MG TAB PO SCH (10:44)
--- NOTE | 2021-10-16 11:14 | Orthopedic Progress Note ---
Date of Service October 16, 2021 Assessment & Plan (1) Cellulitis: Plan: 1. Left ankle abscess. 2. Left septic Achilles tenosynovitis. 3. Left lateral foot abscess. 4. Left second toe abscess. 5. Left second extensor tendon septic tenosynovitis. 6. Left third extensor tendon septic tenosynovitis. 7. Abscess, medial left lower leg. 8. Right ankle abscess. 9. Right Achilles tendon septic tenosynovitis. PT/OT protocols - NWB LLE, WB on Right forefoot for transferrs DVT prophylaxis - Lovenox bid, SCD's Pain management as written DC planning - Picc line placement for home IV's, Home health for dressing changes. Admission and Anticipated Discharge Date Admission Date: October 10, 2021 Subjective POD 4 Pt sitting up in bed awake,alert. No complaints today. States he will be getting a PICC line in today. Planning for possible dc today. Physical Exam Physical Exam: Dressings removed on the LLE . Overall improvement since I last saw him in the OR. All packing removed. No purulent drainage from packing site. Lateral heel/achilles wounds looking benign. Small blister area over the Achilles tendon with some mild serous drainage. Minimal to no erythema. 2nd toe wound benign. Ulcer area over the 3rd and 4th toes without drainage. Yellow slough noted in the larger of the 2 at the base. Small wound on medial aspect of LE below the knee with scant serous drainage. Pt feels there is a lot of improvement to how his foot looks since surgery. Wounds redressed. Moistened Aquacel placed in ulcer area of the 3rd and 4th toes, medial calf wound. Adaptic place on remaining wounds. Dry Aquacel placed on blister area on Achilles. RLE dressing removed. Mild serous drainage noted from medial Calcaneal wound. Dry Aquacel placed over wound and wound redressed. Results & Data ([facility]) Vital Signs (Past 12 Hours) Vital Signs Temp Pulse Resp BP Pulse Ox 10/16/21 07:45 36.8 C 82 16 149/99 H 95
[2021-10-16] MEDS ORDERED: POTASSIUM CHLORIDE CRTAB 20 MEQ TABCR PO ONE ×2 (12:00)
[2021-10-16] MEDS ORDERED: DICLOFENAC SOD 1% GEL 100 GM TUBE EXT PRN (13:39)
[2021-10-16 16:23] LABS: BUN Creatinine Ratio 12.3 (10-20); Calcium 8.9 mg/dl (8.5-10.1); Creatinine Clr Calc Pharmacy 85.4 ml/min; Est GFR (African American) 72.7 ml/min; Est GFR (Non-African American) 62.7 ml/min; Phosphorus 1.6 mg/dl (2.5-4.9); Potassium 3.3 mmol/L (3.5-5.1)
--- NOTE | 2021-10-16 17:21 | Billing Data ---
Date of Service October 16, 2021 Coding Level of Care Code 48627 Subseq Hosp Care Lvl 2
--- NOTE | 2021-10-16 17:21 | Billing Data ---
Date of Service October 15, 2021 Coding Level of Care Code 08780 Subseq Hosp Care Lvl 3
[2021-10-16] MEDS: POT PHOSPHATE MONOBASIC W/ SOD TAB PO SCH (20:38)
[2021-10-16] MEDS: SENNA 8.6 MG TAB PO SCH (20:38)
[2021-10-17] MEDS: HYDROmorphone INJ 0.5 MG/0.5 ML SYR IV PRN (01:33)
[2021-10-17] MEDS: ONDANSETRON INJ 2 MG/ML 2 ML VIAL IV PRN (05:44)
[2021-10-17] MEDS: CEFEPIME 2,000 MG in SYRINGE 0 ML IV SCH ×2 (05:44→15:03)
[2021-10-17] MEDS ORDERED: VANCOMYCIN TROUGH ONE (07:30)
--- NOTE | 2021-10-17 07:43 | Discharge Summary ---
Date of Service October 17, 2021 Admission HPI Per Admitting Provider Mr. Sharif is a 41 year old male with a history of a Pancreatic Mass (Pseudocyst), Portal Venous Thrombosis, Stage IV CKD, Secondary Hyperparathyroidism, MVP with Moderate MR, Pancreatitis, Alcohol Use Disorder, Chronic Venous Insufficiency, Chronic Venous Stasis Ulcers/Wounds, and a Coagulopathy (on chronic Lovenox, failed on Eliquis) -- who presented to the ER to after awakening with a severe throbbing pain in his left foot that he noticed when he woke up. He noticed a large blister over top his left Achilles tendon ruptured and bled and continues to ooze blood at this point. An x-ray was done of his left foot and ankle and suggested an osteomyelitis at the dorsal base of the left 5th toe proximal phalanx. With evidence of osteomyelitis and a probable left leg cellulitis patient is being admitted for IV antibiotics. Patient denies any fever, chills, rigors. He has not had any unusual swelling of either leg recently. Please note the patient does follow with [facility] and he has been seen by Dr. Ghosh in the past. Admission Exam Per Admitting Provider GENERAL: Patient in no acute distress. HEENT: Head is atraumatic, normocephalic. Sclerae anicteric. EOM's intact. Facies symmetric. No perioral cyanosis. NECK: No JVD. JVP is not elevated. Carotid upstrokes are + 2 bilaterally without obvious bruits. CHEST/LUNGS: Clear to auscultation throughout all lung thornton. No wheezes, rales, or crackles. CVS: S1 and S2 are regular without obvious murmurs, gallops, or rubs. PMI is nondisplaced. No lifts, heaves, or thrills. No abdominal aortic or renal bruits. ABDOMINAL EXAM: Bowel sounds are present. No masses, organomegaly, or tenderness. EXTREMITIES: Pigmentation changes present in bilateral legs and feet. 2 cm bullae oozing sanguinous fluid noted over the Achilles region of the left lower extremity. Warmth noted throughout the left foot up into the left calf. No clubbing or cyanosis. No edema. Intact dorsalis pedis and radial pulses bilaterally. NEUROLOGIC EXAM: Patient is awake, alert, and oriented. Pleasant and cooperative. Answers questions appropriately. Speech is clear. Normal movement in all 4 extremities. Gait pattern was not assessed. Principal Diagnosis LLE Cellulitis, Osteomyelitis Left 5th Toe Discharge Exam Constitutional average body habitus, cooperative and comfortable Respiratory normal respiratory effort, lungs clear to auscultation Cardiovascular RRR, no murmur, no edema Heart Sounds: normal S1 and normal S2 Gastrointestinal (Abdomen) normal bowel sounds, soft, nontender, no hepatosplenomegaly Musculoskeletal Knee: no effusion Skin Bruising noted on b/l LE dorsal feet. Wound dressing present on b/l LE Psychiatric A+Ox3, euthymic affect Discharge Data Allergies Allergy/AdvReac Type Severity Reaction Status Date / Time doxycycline Allergy Severe Joint Verified 10/10/21 11:25 Pain, Shortness of breath cephalexin Allergy Mild Rash Verified 10/10/21 11:25 Cipro Allergy Mild throat Verified 06/09/18 08:28 swells ciprofloxacin Allergy Mild throat Verified 10/10/21 11:25 swells Consultations 10/10/21 18:02 Consult Orthopedic Surgery Routine 10/15/21 10:41 Consult Infectious Diseases Routine Procedures Performed Operation Date: 10/12/21 09:05 Actual Procedures p Left: Ankle Incision and Drainage Abscess, Tenosynovectomy septic left Andrea s tendon, incision and drainage abscess lateral foot, incision and drainage left second toe abscess, Tenosynovectomy septic left second extensor tendon, Tenosynovectomy left third septic extensor tendon, incision and drainage abscess medial left lower leg,application of Antibiotic Stimulan Beads left lower extremity; Right: Right ankle incision and drainage abscess, tenosynovectomy right septic Achilles tendon, Application of Antibiotic Stimulan Beads right lower extremity (Bilateral) - Jose A Ghosh DO Ordered Studies 10/11/21 11:31 MR ankle LT wo/w con Routine MR foot LT wo/w con Routine Hospital Course (1) Venous stasis ulcer of right lower leg with edema of right lower leg: Mr. Sharif is a 41 year old male with a history of a Pancreatic Mass (Pseudocyst), Portal Venous Thrombosis, Stage IV CKD, Secondary Hyperparathyroidism, MVP with Moderate MR, Pancreatitis, Alcohol Use Disorder, Chronic Venous Insufficiency, Chronic Venous Stasis Ulcers/Wounds, and a Coagulopathy (on chronic Lovenox, failed on Eliquis) -- who presented to the ER to after awakening with a severe throbbing pain inhis left foot that he noticed when he woke up. To do as outpatient: 1. Complete 4-week course of antibiotic treatment with cefepime and vancomycin for osteomyelitis 2. Weekly CBC/BMP by primary care provider while on antibiotics. Biweekly CRP. 3. Continue Lovenox for portal thrombosis 4. Follow-up with PCP, follow-up with wound care (1) Venous stasis ulcer of left lower leg with edema of left lower leg: X-ray was done of his left foot and ankle and suggested an osteomyelitis at the dorsal base of the left 5th toe proximal phalanx.Admitted to medical/surgical. Suspect recurrent infections in the setting of poor nutrition, alcoholism, possible seeding. Started daily IV thiamine. Started on initial empiric cefepime/vancomycin/Flagyl. Orthopedic surgery consulted for osteomyelitis. Status post debridement/washout 10/12 with daily dressing change. Leukocytosis downtrended from 14.41-->11.73. Blood cultures 10/10 no growth. Prior wound cultures with Pseudomonas stutzeri, Coag Neg Staph, Acinetobacter. Wound culture 10/12 pinpoint growth, low counts mixed likely skin microbiota. Consulted ID: recommend IV cefepime vancomycin 4 weeks starting from 10/12. Potassium, phosphorus, magnesium low on labs repleted in hospital. Coordinated with case management for outpatient IV abx, commode, wheelchair ordered, home health available on 10/18. Picc line placed 10/16. Patient has Wound care nursing. Patient to follow up with PCP in 1 week, please recheck BMP phosphorus magnesium at that time. (2) Cellulitis: Manage as outlined above. (3) Osteomyelitis of ankle or foot, left, acute: Left Foot and Ankle X-ray shows osteomyelitis at the dorsal base of the left 5th toe proximal phalanx. Antibiotics and Ortho Consult as Noted above (4) Portal vein thrombosis: History of Portal Vein Thrombosis which is likely the result of his Coagulopathy and Pancreatic Pseudocyst compressing the venous structures. This is likely contributing to his chronic venous insufficiency as well. Patient failed on Eliquis in the past. Continue Lovenox, resumed on 10/15 (5) Hx Gout continue allopurinol (6) Chronic kidney disease with symptom management only, stage 4 (severe): Admit Cr 1.37 (7) Gait Difficulty Due to recent surgery on b/l lower extremities, patient has partial weight bearing status on RLE and nonweightbearing status on LLE. Evaluated by PT, patient unable to walk until weight bearing status upgraded by ortho, recommend bedside commode and manual wheelchair with b/l elevated leg rests for mobility (2) Venous stasis ulcer of left lower leg with edema of left lower leg: (3) Status post left foot surgery: (4) Osteomyelitis of ankle or foot, left, acute: (5) Chronic kidney disease with symptom management only, stage 4 (severe): (6) Coagulopathy: (7) Portal vein thrombosis: (8) Gait difficulty: Total Time Total Time Spent Total Time Spent (In Minutes): see attending attestation Discharge Plan Discharge Items Patient Disposition: Home - Home Health Services Reason For Visit: LLE CELLULITIS, OSTEOMYELITIS LEFT 5TH TOE Discharge Diagnosis: LLE Cellulitis, Osteomyelitis Left 5th Toe Activity: Per Instructions section Non-emergency contact: Primary Care Provider Call non-emergency contact if: you have any medication questions, your symptoms worsen, your pain is worsening and you have a fever Follow-up/Referrals: Jaja Cali MD [Primary Care Provider] - 10/18/21 3:00 pm (Please schedule within 1 week, please monitor his vancomycin levels) Jose A Ghosh DO [Surgeon] - (follow up in one week for wound checks. ) Diet: Regular Addtl Attending Provider Instructions: You were admitted to the hospital for Left Leg Cellutitis and Osteomyelitis of your left 5th toe. You were treated with surgical debridement and drainage, and placed on IV antibiotics Cefepime and Vancomycin. You received a PICC line to receive IV antibiotics at home, these medications with continue daily for 4 weeks, ending on November 09. Home Health Services will come to assist you with your medication. Wound Care Nursing will come to assist you with your leg wounds. Please check with your PCP to monitor vancomycin levels. We have placed an order for a bedside commode and wheelchair, please keep weight off your left leg until reevaluated by your PCP. You were found to have low Potassium, Phosphate and Magnesium and were repleted in the hospital. Please have a BMP, Magnesium, and Phosphate level checked when you visit your PCP within the next 1 week. A discharge summary will be sent to your primary care physician to ensure continuity of care. Please bring this discharge summary with you to your next office appointment so that your provider can review it at that time. Follow-up appointments: We have requested a follow-up appointment with your primary care physician within one week of discharge. Please call their office if you do not hear from them. Keep all your follow-up appointments as already scheduled. If you cannot make an appointment, notify your provider. Medications: Your medication list has been reviewed and reconciled upon discharge to ensure accuracy and continuity of care. An updated list of all your medications is included with your hospital discharge paperwork. Please review this list closely, and make note of any changes. * We sent a new medication called Cefepime to your pharmacy. Take IV Cefepime 2000mg in syringe 20mls @ 5mls/min three time a day until 11/09/21. * We sent a new medication called Vancomycin to your pharmacy. Take IV Vancomycin 1250mg in sodium chloride 275 mls @ 200mls/hr daily until 11/09/21. Take your medications as instructed; do not skip a dose of your medicines. Make sure all of your doctors know every medicine you are taking (including over-the- counter medicines, vitamins, and supplements). Call your primary care provider before taking any new medicines (including [id number] medicines, vitamins, and supplements), because some of these may interact with your current medications, or may make your symptoms worse. Tell your primary care provider if you cannot afford your medications. CONTACT YOUR PRIMARY CARE PROVIDER if you experience any of the following: Fever, chills shortness of breath increasing redness, drainage, or pain in your wounds Difficulty following your treatment plan, or difficulty taking medications CALL 911 OR GO TO THE EMERGENCY DEPARTMENT if you experience any of the following: Sudden, severe abdominal pain or nausea/vomiting Severe chest pain, or chest pain that radiates (moves) to your jaw or arm Sudden, severe shortness of breath or difficulty breathing Thank you for allowing us to participate in your care. Addtl Chestnut Tanner Provider Instructions: Daily dressing changes. Aquacel wet to dry dressings on the 2 areas over the forefoot, achilles blister area, and proximal medial calf wound. Aquacel on the right medial heel wound. Adaptic and 4x4's on the remainder of wounds. Follow up with Dr Ghosh in 1 week. [phone] Pending Studies at Discharge: No Stand-Alone Forms: [employer], Smoking Cessation Medications and DC Order Prescriptions: New famotidine [Pepcid] 20 mg tablet 20 mg PO BID 7 Days Qty: 14 RF: 0 Continued allopurinol 100 mg tablet 100 mg PO DAILY Qty: 90 RF: 3 thiamine HCl (vitamin B1) [Vitamin B-1] 100 mg Tablet 300 mg PO QAM 30 Days Qty: 90 RF: 0 enoxaparin 100 mg/mL Syringe 100 mg subcut Q12H 30 Days Qty: 60 RF: 0 multivitamin with folic acid [Daily-Lisa (with folic acid)] 400 mcg Tablet 1 tab PO QAM 30 Days Qty: 30 RF: 0 Discharge Orders: Discharge Order (Routine); Ordered 10/17/21 Ordered By: Christos Abdalla/Other Patient Handouts: Lovenox Prefilled Syringe 100 mg/mL, Nutrition for Wound Healing, Peripherally Inserted Central ..., Giving a Subcutaneous Sub- Q ... Admission Data Admit Date/Time: 10/10/21 14:54 Attending Provider: Ankit Huitron Admit Provider: Raimundo Villa Primary Care Provider: Jaja Cali Other Providers: Jose A Ghosh ; Fletcher Deluca ; Franky Almonte ; Lexi Post ; Delbert Hernandez I. ; Naga Lebron II ; Nelly Horn ; Maikel Martin ; [place] ; [facility] Other Interventions: Discharge Summary Assessment (RN) Last Done: 10/17/21 17:46 Supervising Physician Co-Signing Physician Notes Patient seen and examined, chart reviewed, case discussed with Dr. Montoya and I agree with the assessment and plan as above except as otherwise noted Anthony is a 41-year-old male with a history of venous stasis, pancreatic mass, portal venous thrombosis, alcohol use, and lower extremity infections who has been admitted and treated for bilateral lower extremity abscesses with concern for osteomyelitis. On day of discharge she was seen at bedside, had had some intermittent stomach discomfort throughout the morning. KUB normal. Patient endorses a high amount of anxiety, and worry as he has had recurrent infections and worries about what will happen should he worsen again. Reviewed case and plan with patient, and discussed that while it is possible to have treatment failure he has been responding extremely well and clinically progressing very well. Noted close follow-up and return precautions, patient somewhat reassured by this. Abdominal discomfort improved with Pepcid, exam as noted below. No fever/chills day of discharge. Discharge exam: No ongoingpain at right inferior patella and hamstrings, without joint line tenderness and flexion/extension intact. Knee is without warmth/erythema. Pulse regular, skin warm and dry, lower extremities well dressed bilaterally with surgical dressing and wraps in place. Toe flexion/extension bilaterally intact, sensation to soft touch in feet intact. Abdomen nontender to palpation, soft, without rebound/rigidity/guarding. Bowel sounds intact. Cellulitis/osteomyelitis: Case reviewed with infectious disease, will pursue 4- week course of treatment of cefepime and vancomycin with weekly labs performed by PCP. No anaerobic coverage recommended. History of portal thrombosis: Continue Lovenox 100 mg therapeutic twice daily Electrolyte abnormalities: Intermittent, improved with oral intake. Repleted, recommend outpatient labs for stability as noted above. Time spent day of discharge 60 minutes including direct patient care, coordination of care, review of labs and images, documentation, and review of case with resident team. Resident Activity Tracking Resident Involvement: Resident Care Provided Care Provided: Adult Hospital Medicine
[2021-10-17] MEDS ORDERED: FAMOTIDINE 10 MG TABLET PO ONE (08:35)
[2021-10-17] MEDS: DOCUSATE SODIUM 100 MG CAP PO SCH (09:53)
[2021-10-17] MEDS: ENOXAPARIN 100 MG/1ML SYR SQ SCH (09:54)
[2021-10-17] MEDS: MAGNESIUM OXIDE 400 MG TAB PO SCH (09:54)
[2021-10-17] MEDS: POTASSIUM CHLORIDE CRTAB 20 MEQ TABCR PO SCH (09:54)
[2021-10-17] MEDS: THIAMINE HCL 100 MG TAB PO SCH (09:54)
[2021-10-17] MEDS: allopurinoL 100 MG TAB PO SCH (09:54)
[2021-10-17] MEDS: MULTIVITAMIN TAB PO SCH (09:55)
[2021-10-17] MEDS: POT PHOSPHATE MONOBASIC W/ SOD TAB PO SCH ×3 (09:55→18:14)
--- NOTE | 2021-10-17 10:11 | Pharmacy Report ---
Pharmacy Vanc AUC Short Note - Date of Service October 17, 2021 - Assessment & Plan Assessment 41 year old M receiving vancomycin for treatment of cellulitis + septic joint. Pertinent microbiologic data includes: N/A. Day # 06/23 of antimicrobial therapy. Plan Vancomycin * AUC/RENAN is the preferred PK/PD target for vancomycin * AUC guided dosing is effective and associated with decreased risk of nephrotoxicity compared to traditional trough targets * Trough level of 15.3 mcg/mL is predicted to achieve target AUC/RENAN of 400-600 mg/L.hr and may be associated with a 11 % risk of nephrotoxicity * Continue dose of 1250 mg IV every 24 hours * Trough recommended to be rechecked in 3 days and then at least weekly after that Pharmacy will continue to follow and will adjust dose/frequency as necessary. Thank you.
[2021-10-17 10:20] LABS: BUN Creatinine Ratio 12.3 (10-20); Creatinine Clr Calc Pharmacy 100.8 ml/min; Est GFR (African American) 88.9 ml/min; Est GFR (Non-African American) 76.7 ml/min; Magnesium 1.3 mg/dl (1.8-2.4); Phosphorus 1.9 mg/dl (2.5-4.9); Potassium 2.8 mmol/L (3.5-5.1)
[2021-10-17] MEDS: VANCOMYCIN HCL 1,250 MG in SODIUM CHLORIDE 0.9% 250 ML IV SCH (10:48)
[2021-10-17] MEDS: MAGNESIUM SULFATE / D5W 1 GM/100 ML BAG IV SCH ×3 (11:11→15:01)
[2021-10-17] MEDS ORDERED: MAGNESIUM OXIDE 400 MG TAB PO ONE (12:00)
[2021-10-17] MEDS ORDERED: POTASSIUM CHLORIDE CRTAB 20 MEQ TABCR PO ONE (12:00)
[2021-10-17] MEDS: POTASSIUM CHLORIDE / WTR 20 MEQ/100 ML PLCT IV SCH ×3 (13:13→16:55)
--- NOTE | 2021-10-17 15:57 | XRay Report ---
KUB CLINICAL HISTORY: Abdominal pain. COMPARISON STUDY: CT of the abdomen and pelvis and MRCP October 01, 2021. FINDINGS: The bowel gas pattern is normal. There is no radiographic evidence for a bowel obstruction. No urinary calculi are identified. No acute fracture or suspicious lesion is identified within visua lized skeletal structures. The hemidiaphragms were not entirely imaged on this exam. IMPRESSION: No evidence for a bowel obstruction. Unremarkable KUB. ACT 112: Negative or not required by law. Electronically signed by: Manjit Cali M.D. 10/17/2021 3:55 PM
[2021-10-17] MEDS ORDERED: FAMOTIDINE 20 MG in SYRINGE 3 ML IV ONE (16:45)
--- NOTE | 2021-10-17 18:21 | Billing Data ---
Date of Service October 17, 2021 Coding Level of Care Code D/C DAY MANAGEMENT >30 MINS
[2021-10-17] MEDS ORDERED: FAMOTIDINE 20 MG in SYRINGE 3 ML IV SCH (21:00)
== END 2021-10-17 19:14 | disposition home health service (06) | DRG 500 ==
LOC: ED 11:15 → 3N 14:54 → SUATTDRO 14:54 → 3N 18:17

== ENCOUNTER 2021-10-29 09:50 | Inpatient (IN) ==
[2021-10-29] MEDS ORDERED: cefTRIAXone SODIUM 2,000 MG/70 ML BAG IV STA (11:20)
[2021-10-29] MEDS ORDERED: SODIUM CHLORIDE 0.9% 1000ML 1,000 ML IV ONE (11:20)
[2021-10-29] MEDS ORDERED: ONDANSETRON INJ 2 MG/ML 2 ML VIAL IV STA ×2 (11:20→14:22)
[2021-10-29] MEDS ORDERED: PANTOprazole 80 MG in DEXTROSE 5% 100 ML IV STA (11:20)
[2021-10-29 11:54] LABS: Alanine Aminotransferase 25 (12-78); Aspartate Aminotransferase 24 U/L (15-37); BUN Creatinine Ratio 16.2 (10-20); Blood Urea Nitrogen 25 mg/dl (7-18); Calcium 10.3 mg/dl (8.5-10.1); Carbon Dioxide 22 mmol/L (21-32); Chloride 106 mmol/L (98-107); Est GFR (African American) 63.1 ml/min; Est GFR (Non-African American) 54.5 ml/min; Glucose 135 mg/dl (70-99); Potassium 2.7 mmol/L (3.5-5.1); Sodium 139 mmol/L (136-145)
[2021-10-29 11:57] LABS: Albumin Globulin Ratio 0.5 (0.9-2); Alkaline Phosphatase 133 U/L (45-117); Bilirubin,Total 0.6 mg/dl (0.2-1); Globulin 6.3 gm/dl (2.5-4.0); Lipase 5428 U/L (73-393); Total Protein 9.3 gm/dl (6.4-8.2)
--- NOTE | 2021-10-29 11:58 | Emergency Department Note ---
Impression & Plan Hematemesis, Hypertension, Tachycardia, Pancreatitis, Osteomyelitis, Leukocytosis ED Provider Note NAME: JOCELYN JENSEN AGE: 41 SEX: M : 1980 ARRIVES VIA: Walk-In INFORMANT: [Patient] ED PROVIDER(S): [Cuco Mckeon MD] CHIEF COMPLAINT: Vomiting blood HISTORY OF PRESENT ILLNESS: The patient is a 41-year-old male presents to the ED with hematemesis. He has had symptoms since yesterday. He is burping a lot. No black or bloody stool. No chest or abdominal pain. He is on Lovenox for anticoagulation and received a dose this morning. It is twice daily dosing. The patient has a history of alcohol abuse, he has not had alcohol though in about 2 months. He denies heavy aspirin or NSAID use. The patient states that he was scheduled for an endoscopy later this month through the [facility] services. He was never told that he had esophageal varices in the past. There has been no cough or shortness of breath. The patient is on IV antibiotics through a PICC line for a left foot osteomyelitis. REVIEW OF SYSTEMS: See HPI for pertinent positives and negatives. A total of ten systems were reviewed and were otherwise negative. PMHx/PSHx: See Below SOCIAL HISTORY: See Below. PHYSICAL EXAM: GENERAL: Patient is in no acute distress. Burping a lot. HEENT: No acute trauma, normocephalic atraumatic, mucous membranes dry, no nasal congestion, no scleral icterus. NECK: No stridor, no adenopathy, no meningismus, trachea is midline. LUNGS: Clear to auscultation bilaterally, no wheeze, no rhonchi, breath sounds equal. HEART: Tachycardic, regular rhythm, no murmurs. ABDOMEN: Soft, nontender, bowel sounds positive, no hernias, no peritonitis. EXTREMITIES: No cyanosis or edema. The patient has wrapped and bandages on both lower legs. NEUROLOGIC: Oriented x 3, no acute motor or sensory deficits, no focal weakness. SKIN: No rash, no jaundice, no diaphoresis. DIFFERENTIAL DIAGNOSIS: Diverticulosis, AVM, coagulopathy, colitis, inflammatory bowel disease, malignancy, Rianna-Brantley tear, esophagitis, peptic ulcer disease, variceal bleed, gastritis, epistaxis, fissure, hemorrhoids, as well as other pathologies. EMERGENCY DEPARTMENT COURSE/PROCEDURES: ECG: Indication was GI bleeding and tachycardia. The ECG shows a sinus tachycardia with a rate of 121. There is some nonspecific ST change. LVH is present. No ST elevation, no PVCs but the QTc is 465. Compared an ECG from 10 October 2021, the rate has increased. Nonspecific ST changes now present. Continuous Cardiac Monitoring: An order was placed for continuous cardiac monitoring. The monitor shows a rate of 133 with sinus tachycardia. Critical Care Note: I have personally spent 52 minutes of critical care time in the direct management of this patient. This includes bedside care, interpretation of diagnostic studies, and testing, discussion with consultants, patient, and family members, and other required patient management activities. This 52 minutes is in excess of all separately billable procedures. MEDICAL DECISION MAKING: Patient has a significant leukocytosis at over 30,000, this could be consistent with infection and/or the stress of his presentation. He is anemic however, his hemoglobin appears stable. Platelet count slightly elevated. There is a subtle elevation to the INR at 1.2. Potassium is low at 2.7. There is a slight elevation to the creatinine. Lactic acid level is not elevated making sepsis less likely. Alk phos is elevated, the remaining liver enzymes are unremarkable. Lipase is elevated at over 5000 however, this is a decrease compared to his recent testing. Covid test returned negative. Chest film did not show pneumonia or CHF. ECG showed a sinus tachycardia, no obvious ischemic change. Cardiac enzyme testing x1 is not consistent with acute cardiac injury. On exam, the patient was hypertensive and tachycardic. He was not toxic. Patient received IV saline, 1 L. He was given a dose of IV potassium. He received IV Protonix because of the complaints of hematemesis. He was given IV Zofran for nausea. He received IV hydralazine for his high blood pressure. He was given IV ceftriaxone for the potential of bleeding esophageal varices. The patient presents with hematemesis. He is doing well here in the ED with treatment. He has had no further hematemesis. Patient has a lot of chronic ongoing issues and now presents with bloody vomitus. Further work-up, hospitalization is warranted. His elevated white blood cell count needs to be further addressed as, this was somewhat of an unexpected finding given his outpatient IV antibiotic treatment for osteomyelitis. I did speak with the patient, I talked to the comp field case manager. The on-call hospitalist was consulted. 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 ECHO Secondary hyperparathyroidism of renal origin Staphylococcus aureus infection Superficial thrombosis of leg PER RECORDS Tachycardia UTI (urinary tract infection) Venous ulcer RECURRENT VENOUS ULCERATION (REASON FOR PROCEDURE) Vitamin D deficiency Surgical History Hx of biopsy LEFT KIDNEY S/P vascular surgery LLE / VENOUS INSUFFICIENCY Family History Mother FHx: lung cancer Hypertension Breast cancer Brother FHx: testicular cancer Hypertension Father Hypertension Unknown Myocardial infarction Social History Smoking Status: Never smoker Second Hand Exposure: No; Hx Alcohol Use: Yes Alcohol type: hard liquor Alcohol Intake Frequency Comment: daily Hx Substance Use: No Preferred Language: Uzbek Communication Ability: Effective Visual Impairment: No Limitations Departmental Secretary Required: No Beliefs That Will Affect Care: None marital status: Single Current Living Situation: Family Current Living Situation Comment: [facility] AND KIDS How many Children do You have: 0 Feels Safe at Home: Yes Assistive Devices: None Allergies Allergies Allergy/AdvReac Type Severity Reaction Status Date / Time doxycycline Allergy Severe Joint Verified 10/29/21 11:53 Pain, Shortness of breath cephalexin Allergy Mild Rash Verified 10/29/21 11:53 Cipro Allergy Mild throat Verified 06/09/18 08:28 swells ciprofloxacin Allergy Mild throat Verified 10/29/21 11:53 swells Home Meds Previous Rx's Medication Instructions Recorded allopurinol 100 mg tablet 100 mg PO DAILY #90 tab 08/26/21 enoxaparin 100 mg/mL subcutaneous 100 mg SUBCUT Q12H 30 Days #60 ml 10/03/21 syringe multivitamin with folic acid 400 1 tab PO QAM 30 Days #30 tab 10/03/21 mcg tablet (Daily-Lisa (with folic acid)) thiamine HCl (vitamin B1) 100 mg 300 mg PO QAM 30 Days #90 tab 10/03/21 tablet (Vitamin B-1) blood pressure test kit-large #1 ea 10/25/21 Results & Data (ED) Vital Signs Vital Signs - 24 hr 10/29/21 09:54 10/29/21 11:10 10/29/21 11:30 Temperature 36.5 C Temperature Source Temporal Artery Scan Pulse Rate 133 H 128 H 119 H Pulse Rate from SpO2 Sensor 129 H 120 H Respiratory Rate 18 14 23 Respiratory Effort / Characteristics Non-Labored Respiratory Depth Normal Blood Pressure 147/104 H Blood Pressure [Left Arm] Blood Pressure Mean 118 Blood Pressure Mean [Left Arm] Blood Pressure Position Sitting Pulse Oximetry 98 99 98 Oxygen Delivery Method Room Air Sepsis Recent Fever Within 48 Hours No Sepsis New/Unexplained Change in Mental Status No Sepsis Action Taken by Nursing No Action Required 10/29/21 12:00 10/29/21 12:30 10/29/21 12:49 Temperature Temperature Source Pulse Rate 131 H 71 123 H Pulse Rate from SpO2 Sensor 131 H 123 H Respiratory Rate 24 16 23 Respiratory Effort / Characteristics Respiratory Depth Blood Pressure 152/115 H Blood Pressure [Left Arm] Blood Pressure Mean 127 Blood Pressure Mean [Left Arm] Blood Pressure Position Pulse Oximetry 99 98 Oxygen Delivery Method Room Air Sepsis Recent Fever Within 48 Hours Sepsis New/Unexplained Change in Mental Status Sepsis Action Taken by Nursing 10/29/21 12:50 10/29/21 13:00 Temperature Temperature Source Pulse Rate 122 H Pulse Rate from SpO2 Sensor Respiratory Rate 20 Respiratory Effort / Characteristics Respiratory Depth Blood Pressure 165/117 H Blood Pressure [Left Arm] 150/115 H Blood Pressure Mean 133 Blood Pressure Mean [Left Arm] 126 Blood Pressure Position Pulse Oximetry Oxygen Delivery Method Sepsis Recent Fever Within 48 Hours Sepsis New/Unexplained Change in Mental Status Sepsis Action Taken by [facility] Medications Current Medication List: was personally reviewed by me Laboratory Data Attestation: I reviewed the patient's lab results. Result diagrams: 10/29/21 17:03 10/29/21 17:03 Lab Results 10/29/21 10/29/21 10/29/21 Range/Units 11:20 11:20 11:20 WBC 33.91 H* (4.8-10.8) K/uL RBC 3.54 L (4.7-6.1) M/uL Hgb 12.2 L (14.0-18.0) g/dL Hct 35.3 L (42-52) % MCV 99.7 (80-100) fL MCH 34.5 H (25-34) pg MCHC 34.6 (32-36) g/dL RDW Std Deviation 50.1 H (36.4-46.3) fL RDW Coeff of Machelle 13.7 (11.5-14.5) % Plt Count 440 H (130-400) K/uL MPV 8.9 (7.4-10.4) fL Immature Gran % (Auto) 0.4 % Neut % (Auto) 89.1 % Lymph % (Auto) 6.2 % Nicholas % (Auto) 3.7 % Eos % (Auto) 0.5 % Baso % (Auto) 0.1 % Neut # (Auto) 30.19 H (1.4-6.5) K/uL Lymph # (Auto) 2.10 (1.2-3.4) K/uL Nicholas # (Auto) 1.27 H (0.11-0.59) K/uL Eos # (Auto) 0.16 (0-0.5) K/uL Baso # (Auto) 0.05 (0-0.2) K/uL Immature Gran # (Auto) 0.14 H (0.00-0.02) K/uL PT Cancelled INR Cancelled APTT Cancelled PTT Ratio Cancelled Sodium 139 (136-145) mmol/L Potassium 2.7 L (3.5-5.1) mmol/L Chloride 106 (98-107) mmol/L Carbon Dioxide 22 (21-32) mmol/L Anion Gap 11.0 (3-11) BUN 25 H (7-18) mg/dl Creatinine 1.54 H (0.6-1.4) mg/dl Est Cr Clr Drug Dosing Not Reportable Est GFR ( Amer) 63.1 ml/min Est GFR (Non-Af Amer) 54.5 ml/min BUN/Creatinine Ratio 16.2 (10-20) Glucose 135 H (70-99) mg/dl Lactate (0.4-2.0) mmol/L Calcium 10.3 H (8.5-10.1) mg/dl Magnesium 1.8 (1.8-2.4) mg/dl Total Bilirubin 0.6 (0.2-1) mg/dl AST 24 (15-37) U/L ALT 25 (12-78) Alkaline Phosphatase 133 H (45-117) U/L Troponin I (0-0.045) ng/ml Total Protein 9.3 H (6.4-8.2) gm/dl Albumin 3.0 L (3.4-5.0) gm/dl Globulin 6.3 H (2.5-4.0) gm/dl Albumin/Globulin Ratio 0.5 L (0.9-2) Lipase 5428 H (73-393) U/L SARS-CoV-2, RNA, NAAT (NEGATIVE) Blood Type Blood Type Recheck Antibody Screen 10/29/21 10/29/21 10/29/21 Range/Units 11:20 11:32 12:24 WBC (4.8-10.8) K/uL RBC (4.7-6.1) M/uL Hgb (14.0-18.0) g/dL Hct (42-52) % MCV (80-100) fL MCH (25-34) pg MCHC (32-36) g/dL RDW Std Deviation (36.4-46.3) fL RDW Coeff of Machelle (11.5-14.5) % Plt Count (130-400) K/uL MPV (7.4-10.4) fL Immature Gran % (Auto) % Neut % (Auto) % Lymph % (Auto) % Nicholas % (Auto) % Eos % (Auto) % Baso % (Auto) % Neut # (Auto) (1.4-6.5) K/uL Lymph # (Auto) (1.2-3.4) K/uL Nicholas # (Auto) (0.11-0.59) K/uL Eos # (Auto) (0-0.5) K/uL Baso # (Auto) (0-0.2) K/uL Immature Gran # (Auto) (0.00-0.02) K/uL PT INR APTT PTT Ratio Sodium (136-145) mmol/L Potassium (3.5-5.1) mmol/L Chloride (98-107) mmol/L Carbon Dioxide (21-32) mmol/L Anion Gap (3-11) BUN (7-18) mg/dl Creatinine (0.6-1.4) mg/dl Est Cr Clr Drug Dosing Est GFR ( Amer) ml/min Est GFR (Non-Af Amer) ml/min BUN/Creatinine Ratio (10-20) Glucose (70-99) mg/dl Lactate 0.9 (0.4-2.0) mmol/L Calcium (8.5-10.1) mg/dl Magnesium (1.8-2.4) mg/dl Total Bilirubin (0.2-1) mg/dl AST (15-37) U/L ALT (12-78) Alkaline Phosphatase (45-117) U/L Troponin I < 0.015 (0-0.045) ng/ml Total Protein (6.4-8.2) gm/dl Albumin (3.4-5.0) gm/dl Globulin (2.5-4.0) gm/dl Albumin/Globulin Ratio (0.9-2) Lipase (73-393) U/L SARS-CoV-2, RNA, NAAT (NEGATIVE) Blood Type A Positive Blood Type Recheck Antibody Screen NEGATIVE 10/29/21 10/29/21 10/29/21 Range/Units 12:24 12:35 13:05 WBC (4.8-10.8) K/uL RBC (4.7-6.1) M/uL Hgb (14.0-18.0) g/dL Hct (42-52) % MCV (80-100) fL MCH (25-34) pg MCHC (32-36) g/dL RDW Std Deviation (36.4-46.3) fL RDW Coeff of Machelle (11.5-14.5) % Plt Count (130-400) K/uL MPV (7.4-10.4) fL Immature Gran % (Auto) % Neut % (Auto) % Lymph % (Auto) % Nicholas % (Auto) % Eos % (Auto) % Baso % (Auto) % Neut # (Auto) (1.4-6.5) K/uL Lymph # (Auto) (1.2-3.4) K/uL Nicholas # (Auto) (0.11-0.59) K/uL Eos # (Auto) (0-0.5) K/uL Baso # (Auto) (0-0.2) K/uL Immature Gran # (Auto) (0.00-0.02) K/uL PT 12.2 H INR 1.2 H APTT 35.0 H PTT Ratio 1.3 Sodium (136-145) mmol/L Potassium (3.5-5.1) mmol/L Chloride (98-107) mmol/L Carbon Dioxide (21-32) mmol/L Anion Gap (3-11) BUN (7-18) mg/dl Creatinine (0.6-1.4) mg/dl Est Cr Clr Drug Dosing Est GFR ( Amer) ml/min Est GFR (Non-Af Amer) ml/min BUN/Creatinine Ratio (10-20) Glucose (70-99) mg/dl Lactate (0.4-2.0) mmol/L Calcium (8.5-10.1) mg/dl Magnesium (1.8-2.4) mg/dl Total Bilirubin (0.2-1) mg/dl AST (15-37) U/L ALT (12-78) Alkaline Phosphatase (45-117) U/L Troponin I (0-0.045) ng/ml Total Protein (6.4-8.2) gm/dl Albumin (3.4-5.0) gm/dl Globulin (2.5-4.0) gm/dl Albumin/Globulin Ratio (0.9-2) Lipase (73-393) U/L SARS-CoV-2, RNA, NAAT NEGATIVE (NEGATIVE) Blood Type Blood Type Recheck A Positive Antibody Screen Administered Medications Potassium Chloride (K Darrian / Wtr) 20 meq in 100 mls @ 50 mls/hr IV Q2H CURTIS; Protocol Stop: 10/29/21 19:29 Last Admin: 10/29/21 15:58 Dose: 50 mls/hr Documented by: [id number] Discontinued Medications Hydralazine HCl (Hydralazine Hcl 20 Mg/Ml Vial) 10 mg IV NOW STA Stop: 10/29/21 13:04 Last Admin: 10/29/21 13:18 Dose: 10 mg Documented by: [id number] Sodium Chloride (Nss 1000ml) 1,000 mls @ 999 mls/hr IV .Q1H1M ONE Stop: 10/29/21 12:20 Last Infusion: 10/29/21 13:57 Dose: 0 mls/hr Documented by: [id number] Admin: 10/29/21 12:49 Dose: 999 mls/hr Documented by: [id number] Pantoprazole Sodium 80 mg/ (Dextrose) 100 mls @ 400 mls/hr IV ONE STA Stop: 10/29/21 11:34 Last Infusion: 10/29/21 12:47 Dose: 0 mls/hr Documented by: [id number] Admin: 10/29/21 11:59 Dose: 400 mls/hr Documented by: [id number] Ceftriaxone Sodium (Rocephin) 2,000 mg in 70 mls @ 140 mls/hr IV NOW STA Stop: 10/29/21 11:49 Last Infusion: 10/29/21 12:49 Dose: 0 mls/hr Documented by: [id number] Admin: 10/29/21 12:48 Dose: 140 mls/hr Documented by: [id number] Potassium Chloride (K Darrian / Wtr) 10 meq in 100 mls @ 100 mls/hr IV ONE ONE; Protocol Stop: 10/29/21 13:03 Last Infusion: 10/29/21 14:43 Dose: 0 mls/hr Documented by: [id number] Admin: 10/29/21 13:18 Dose: 100 mls/hr Documented by: [id number] Potassium Chloride (K Darrian / Wtr) 20 meq in 100 mls @ 50 mls/hr IV Q2H STA; Protocol Stop: 10/29/21 16:43 Last Admin: 10/29/21 15:38 Dose: Not Given Documented by: [id number] Magnesium Sulfate/Dextrose (Magnesium Sulfate / D5w) 1 gm in 100 mls @ 50 mls/hr IV ONE ONE Stop: 10/29/21 16:43 Last Admin: 10/29/21 15:58 Dose: 50 mls/hr Documented by: [id number] Ioversol (Optiray 320 125ml) 120 ml IV ONCE ONE Stop: 10/29/21 16:57 Last Admin: 10/29/21 16:56 Dose: 1 ml Documented by: [id number] Ondansetron HCl (Ondansetron Inj 2 Mg/Ml 2 Ml Vial) 4 mg IV NOW STA Stop: 10/29/21 11:21 Last Admin: 10/29/21 11:59 Dose: 4 mg Documented by: [id number] Ondansetron HCl (Ondansetron Inj 2 Mg/Ml 2 Ml Vial) 4 mg IV NOW STA Stop: 10/29/21 14:23 Last Admin: 10/29/21 14:28 Dose: 4 mg Documented by: [id number] Imaging Data Radiologist's Impression: Chest X-Ray 10/29/21 11:20 SINGLE VIEW CHEST CLINICAL HISTORY: Vomiting. Illness. FINDINGS: An AP, portable, upright chest radiograph is compared to study dated 10/01/2021. A right PICC line is new from previous. The tip projects over the cavoatrial junction. The cardiomediastinal silhouette is unremarkable. There is mild bibasilar atelectasis. The lungs and pleural spaces are otherwise clear. No pneumothorax is seen. The bony thorax is grossly intact. IMPRESSION: 1. No active disease in the chest. 2. A right-sided PICC line is new from previous. ACT 112: Negative or not required by law. Electronically signed by: Cuco Ramos M.D. 10/29/2021 12:00 PM Discharge Plan Visit Data Chief Complaint: Vomiting Stated Complaint: VOMITING BLOOD ED Provider: Cuco Mckeon Discharge Problem: Hematemesis, Hypertension, Tachycardia, Pancreatitis, Osteomyelitis, Leukocytosis Patient Disposition: Admitted As Inpatient Condition: Fair Discharge Instructions Interventions: ED Discharge Assessment Last Done: 10/29/21 15:26
--- NOTE | 2021-10-29 12:02 | XRay Report ---
SINGLE VIEW CHEST CLINICAL HISTORY: Vomiting. Illness. FINDINGS: An AP, portable, upright chest radiograph is compared to study dated 10/01/2021. A right PIC C line is new from previous. The tip projects over the cavoatrial junction. The cardiomediastinal lg houette is unremarkable. There is mild bibasilar atelectasis. The lungs and pleural spaces are otherw ise clear. No pneumothorax is seen. The bony thorax is grossly intact. IMPRESSION: 1. No active disease in the chest. 2. A right-sided PICC line is new from previous. ACT 112: Negative or not required by law. Electronically signed by: Cuco Ramos M.D. 10/29/2021 12:00 PM
[2021-10-29] MEDS ORDERED: POTASSIUM CHLORIDE / WTR 10 MEQ/100 ML PLCT IV ONE (12:04)
[2021-10-29 12:08] LABS: Basophils # (auto) 0.05 K/uL (0-0.2); Basophils % (auto) 0.1 %; Eosinophils # (auto) 0.16 K/uL (0-0.5); Eosinophils % (auto) 0.5 %; Hematocrit (blood only) 35.3 % (42-52); Hemoglobin 12.2 g/dL (14.0-18.0); Immature Granulocytes # (auto) 0.14 K/uL (0.00-0.02); Immature Granulocytes % (auto) 0.4 %; Lymphocytes % (auto) 6.2 %; Mean Corpuscular Hemoglobin 34.5 pg (25-34); Mean Corpuscular Hgb Conc 34.6 g/dL (32-36); Mean Corpuscular Volume 99.7 fL (80-100); Mean Platelet Volume 8.9 fL (7.4-10.4); Monocytes # (auto) 1.27 K/uL (0.11-0.59); Monocytes % (auto) 3.7 %; Neutrophils # (auto) 30.19 K/uL (1.4-6.5); Neutrophils % (auto) 89.1 %; Platelet Count 440 K/uL (130-400); RDW Coefficient of Variation 13.7 % (11.5-14.5); RDW Standard Deviation 50.1 fL (36.4-46.3); Red Blood Count 3.54 M/uL (4.7-6.1); White Blood Count 33.91 K/uL (4.8-10.8)
[2021-10-29 12:51] LABS: Partial Thromboplastin Ratio 1.3
[2021-10-29 12:53] LABS: INR 1.2 (0.9-1.1); Prothrombin Time 12.2 Seconds (9.0-12.0)
[2021-10-29] MEDS ORDERED: hydrALAZINE HCL 20 MG/ML VIAL IV STA (13:03)
--- NOTE | 2021-10-29 14:06 | History & Physical Report ---
Date of Service October 29, 2021 Assessment & Plan (1) Hematemesis: Plan: Mr. Sharif is a 41 year old male with a history of a Pancreatic Mass (Pseudocyst), Portal Venous Thrombosis, Stage IV CKD, Secondary Hyperparathyroidism, MVP with Moderate MR, Pancreatitis, Alcohol Use Disorder, Chronic Venous Insufficiency, Chronic Venous Stasis Ulcers/Wounds with Recent Cellulitis/ Left Ankle Abscess/Bilateral [place]'s Septic Tenosynovitis (currently on day #20 of IV Cefepime and IV Vancomycin of a 28 day course), and a Coagulopathy (on chronic Lovenox, failed on Eliquis) who presented to [facility] ER todaywith Hematemesis that had its onset this morning after patient had nausea and recurrent vomiting that began yesterday and persisted through the day and overnight. This morning he had recurrent vomiting and noticed some blood mixed in with his vomitus. He has also had persistent hiccoughs today. Most likely causes for hematemesis is a Rianna Brantley tear but could certainly be from gastritis, esophagitis, PUD, etc. His nausea and vomiting are likely secondary to an acute pancreatitis although his lipase level is elevated, it is lower than it has been in the past. Recommend the followin. Admit to PCU. 2. Consult GI. 3. Bowel rest/NPO diet. 4. IV fluids. 5. Possible EGD tomorrow, patient was scheduled for an EUS as an outpatient as well. 6. Anti-emetics as needed. 7. Hold Lovenox for now. 8. Serial CBC (2) Vomiting: Plan: -- Manage as outlined above. -- Anti-emetics as needed. (3) Elevated lipase: Plan: -- Serum Lipase elevated at 5428 U/L. -- Evidence of acute pancreatitis on CT Scan today with enlarging pseudocyst -- GI is following. -- Manage as outlined above. (4) Pseudocyst, pancreas: Plan: As above, has upcoming EUS scheduled, may need drainage of cyst (5) Pancreatitis: Plan: As above (6) Osteomyelitis of ankle or foot, left, acute: Plan: Status post bilateral ankle and foot washouts with antibiotic beads placed during last admission -- Continue IV Vancomycin 1250 mg q 24 hours. -- Continue IV Cefepime 2000 mg q 12 hours. -- He is currently on day #20 of 28 of this regimen. -- Routine orthopedic consult ordered as he was to see Dr. Ghosh tomorrow anyway (7) Portal vein thrombosis: Plan: -- Appears improved on today's CT Scan. -- Lovenox on hold due to GI bleeding. (8) Coagulopathy: Plan: Follows with Hematology. -- Recent extensive hypercoagulable work-up, most test results are not back yet. -- Lovenox on hold for now due to GI bleeding. (9) Hypokalemia: Plan: Potassium low at 2.7 Replace with IV potassium chloride Give 1 g of IV magnesium sulfate Follow BMP, magnesium in the morning (10) Leukocytosis: Plan: WBC count elevated at 33, with neutrophilia Had persistent leukocytosis during last admission for osteomyelitis as well as on outpatient labs from 1 week ago Leukocytosis much worse today likely secondary to nausea/vomiting, but also with enlarging pancreatic cyst likely contributing His feet and ankles actually look like they are healing well He is somewhat iron deficient and some of this could be secondary to iron deficiency anemia Follow CBC Continue antibiotics for osteomyelitis Give 1 dose IV Venofer (11) Alcohol use disorder: Plan: Previous history of such, patient currently denies ongoing alcohol use AWSS ordered Ativan as needed History of Present Illness Chief Complaint: -- Hematemesis. Primary Care Provider: Jaja Cali MD Mr. Sharif is a 41 year old male with a history of a Pancreatic Mass (Pseudocyst), Portal Venous Thrombosis, Stage IV CKD, Secondary Hyperparathyroidism, MVP with Moderate MR, Pancreatitis, Alcohol Use Disorder, Chronic Venous Insufficiency, Chronic Venous Stasis Ulcers/Wounds with Recent Cellulitis/ Left Ankle Abscess/Bilateral Andrea's Septic Tenosynovitis (currently on day #20 of IV Cefepime and IV Vancomycin of a 28 day course) , and a Coagulopathy (on chronic Lovenox, failed on Eliquis) who presented to [facility] ER todaywith Hematemesis that had its onset this morning. Patient has had nausea and recurrent vomiting that began yesterday and persisted through the day and overnight. This morning he had recurrent vomiting and noticed some blood mixed in with his vomitus. He has also had persistent hiccoughs today. He did have some generalized abdominal pain with his recurrent vomiting and retching but no abdominal pain otherwise. He continues to have normal bowel movements. Patient does have a history of alcohol abuse, drinking about 4 shots of vodka per day-however, denies any ongoing alcohol use at this time. Patient offers no other complaints. His chronic wounds of his lower extremities and feet have been healing up on his current IV antibiotic regimen. He denies any fevers, chills, headache, stiff neck. He has not had any chest pain, heaviness, tightness, pressure, or discomfort. He denies any shortness of breath. Patient has not had any urinary symptoms. He has not had any melena or hematochezia. No recent diarrhea. Allergies Allergy/AdvReac Type Severity Reaction Status Date / Time doxycycline Allergy Severe Joint Verified 10/29/21 11:53 Pain, Shortness of breath cephalexin Allergy Mild Rash Verified 10/29/21 11:53 Cipro Allergy Mild throat Verified 06/09/18 08:28 swells ciprofloxacin Allergy Mild throat Verified 10/29/21 11:53 swells Home Medications Medication Instructions Recorded Confirmed Type allopurinol 100 mg tablet 100 mg PO DAILY #90 tab 08/26/21 10/29/21 Rx enoxaparin 100 mg/mL subcutaneous 100 mg SUBCUT Q12H 30 Days #60 ml 10/03/21 10/29/21 Rx syringe multivitamin with folic acid 400 1 tab PO QAM 30 Days #30 tab 10/03/21 10/29/21 Rx mcg tablet (Daily-Lisa (with folic acid)) thiamine HCl (vitamin B1) 100 mg 300 mg PO QAM 30 Days #90 tab 10/03/21 10/29/21 Rx tablet (Vitamin B-1) blood pressure test kit-large #1 ea 10/25/21 10/25/21 Rx 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 ECHO Secondary hyperparathyroidism of renal origin Staphylococcus aureus infection Superficial thrombosis of leg PER RECORDS Tachycardia UTI (urinary tract infection) Venous ulcer RECURRENT VENOUS ULCERATION (REASON FOR PROCEDURE) Vitamin D deficiency Surgical History Hx of biopsy LEFT KIDNEY S/P vascular surgery LLE 2/2 VENOUS INSUFFICIENCY Family History Mother FHx: lung cancer Hypertension Breast cancer Brother FHx: testicular cancer Hypertension Father Hypertension Unknown Myocardial infarction Social History Smoking Status: Never smoker Second Hand Exposure: No; Hx Alcohol Use: Yes Alcohol type: hard liquor Alcohol Intake Frequency Comment: daily Hx Substance Use: No Preferred Language: Armenian Communication Ability: Effective Visual Impairment: No 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 HEENT: Head is atraumatic, normocephalic. Sclerae anicteric. EOM's intact. Facies symmetric. No perioral cyanosis. NECK: No JVD. JVP is not elevated. Carotid upstrokes are + 2 bilaterally without obvious bruits. CHEST/LUNGS: Clear to auscultation throughout all lung thornton. No wheezes, rales, or crackles. CVS: S1 and S2 are regular without obvious murmurs, gallops, or rubs. PMI is nondisplaced. No lifts, heaves, or thrills. No abdominal aortic or renal bruits. ABDOMINAL EXAM: Bowel sounds are present. No masses, organomegaly, or tenderness. No guarding or rigidity. EXTREMITIES: Pigmentation changes present in bilateral legs and feet. Sutures are intact on his right foot and right Achilles region. The left Achilles region appears to have dehisced. No clubbing or cyanosis. No edema. Intact dorsalis pedis and radial pulses bilaterally. NEUROLOGIC EXAM: Patient is awake, alert, and oriented. Pleasant and cooperative. Answers questions appropriately. Speech is clear. Normal movement in all 4 extremities. Gait pattern was not assessed. Results & Data Results & Data ([facility]) Vital Signs (Past 12 Hours) Vital Signs Temp Pulse Resp BP BP Pulse Ox 10/29/21 12:50 150/115 H 10/29/21 12:30 71 16 10/29/21 12:00 131 H 24 99 10/29/21 11:30 119 H 23 98 10/29/21 11:10 128 H 14 99 10/29/21 09:54 36.5 C 133 H 18 147/104 H 98 Laboratory Results Laboratory Results - last 24 hr 10/29/21 10/29/21 10/29/21 11:20 11:20 11:20 WBC 33.91 H* RBC 3.54 L Hgb 12.2 L Hct 35.3 L MCV 99.7 MCH 34.5 H MCHC 34.6 RDW Std Deviation 50.1 H RDW Coeff of Machelle 13.7 Plt Count 440 H MPV 8.9 Immature Gran % (Auto) 0.4 Neut % (Auto) 89.1 Lymph % (Auto) 6.2 [place] % (Auto) 3.7 Eos % (Auto) 0.5 Baso % (Auto) 0.1 Neut # (Auto) 30.19 H Lymph # (Auto) 2.10 [place] # (Auto) 1.27 H Eos # (Auto) 0.16 Baso # (Auto) 0.05 Immature Gran # (Auto) 0.14 H PT Cancelled INR Cancelled APTT Cancelled PTT Ratio Cancelled Sodium 139 Potassium 2.7 L Chloride 106 Carbon Dioxide 22 Anion Gap 11.0 BUN 25 H Creatinine 1.54 H Est Cr Clr Drug Dosing Not Reportable Est GFR ( Amer) 63.1 Est GFR (Non-Af Amer) 54.5 BUN/Creatinine Ratio 16.2 Glucose 135 H Lactate Calcium 10.3 H Magnesium Pending Total Bilirubin 0.6 AST 24 ALT 25 Alkaline Phosphatase 133 H Troponin I Total Protein 9.3 H Albumin 3.0 L Globulin 6.3 H Albumin/Globulin Ratio 0.5 L Lipase 5428 H SARS-CoV-2, RNA, NAAT Blood Type Blood Type Recheck Antibody Screen 10/29/21 10/29/21 10/29/21 11:20 11:32 12:24 WBC RBC Hgb Hct MCV MCH MCHC RDW Std Deviation RDW Coeff of Machelle Plt Count MPV Immature Gran % (Auto) Neut % (Auto) Lymph % (Auto) [place] % (Auto) Eos % (Auto) Baso % (Auto) Neut # (Auto) Lymph # (Auto) [place] # (Auto) Eos # (Auto) Baso # (Auto) Immature Gran # (Auto) PT INR APTT PTT Ratio Sodium Potassium Chloride Carbon Dioxide Anion Gap BUN Creatinine Est Cr Clr Drug Dosing Est GFR ( Amer) Est GFR (Non-Af Amer) BUN/Creatinine Ratio Glucose Lactate 0.9 Calcium Magnesium Total Bilirubin AST ALT Alkaline Phosphatase Troponin I < 0.015 Total Protein Albumin Globulin Albumin/Globulin Ratio Lipase SARS-CoV-2, RNA, NAAT Blood Type A Positive Blood Type Recheck Antibody Screen NEGATIVE 10/29/21 10/29/21 10/29/21 12:24 12:35 13:05 WBC RBC Hgb Hct MCV MCH MCHC RDW Std Deviation RDW Coeff of Machelle Plt Count MPV Immature Gran % (Auto) Neut % (Auto) Lymph % (Auto) [place] % (Auto) Eos % (Auto) Baso % (Auto) Neut # (Auto) Lymph # (Auto) [place] # (Auto) Eos # (Auto) Baso # (Auto) Immature Gran # (Auto) PT 12.2 H INR 1.2 H APTT 35.0 H PTT Ratio 1.3 Sodium Potassium Chloride Carbon Dioxide Anion Gap BUN Creatinine Est Cr Clr Drug Dosing Est GFR ( Amer) Est GFR (Non-Af Amer) BUN/Creatinine Ratio Glucose Lactate Calcium Magnesium Total Bilirubin AST ALT Alkaline Phosphatase Troponin I Total Protein Albumin Globulin Albumin/Globulin Ratio Lipase SARS-CoV-2, RNA, NAAT NEGATIVE Blood Type Blood Type Recheck A Positive Antibody Screen 10/29/21 10/29/21 10/29/21 17:03 17:03 Unknown WBC 28.82 H RBC 3.23 L Hgb 11.1 L Hct 32.2 L MCV 99.7 MCH 34.4 H MCHC 34.5 RDW Std Deviation 50.2 H RDW Coeff of Machelle 13.8 Plt Count 428 H MPV 8.8 Immature Gran % (Auto) Neut % (Auto) Lymph % (Auto) [place] % (Auto) Eos % (Auto) Baso % (Auto) Neut # (Auto) Lymph # (Auto) [place] # (Auto) Eos # (Auto) Baso # (Auto) Immature Gran # (Auto) PT Cancelled INR Cancelled APTT Cancelled PTT Ratio Cancelled Sodium Pending Potassium Pending Chloride Pending Carbon Dioxide Pending Anion Gap Pending BUN Pending Creatinine Pending Est Cr Clr Drug Dosing Pending Est GFR ( Amer) Pending Est GFR (Non-Af Amer) Pending BUN/Creatinine Ratio Pending Glucose Pending Lactate Calcium Pending Magnesium Total Bilirubin AST ALT Alkaline Phosphatase Troponin I Total Protein Albumin Globulin Albumin/Globulin Ratio Lipase SARS-CoV-2, RNA, NAAT Blood Type Blood Type Recheck Antibody Screen Diagnostic Findings CT SCAN ABD/PELVIS 10/29/21: No pneumoperitoneum. No pneumatosis. No suspicious lytic or blastic osseous lesions. Partial fusion of the left sacroiliac joint is again noted. The tip of the right PICC terminates at the superior cavoatrial junction. Hepatic steatosis. No hepatic or splenic masses. The gallbladder, adrenal glands, and kidneys are unremarkable. Improvement in the partial thrombus seen within the left portal veins and portosplenic confluence. No evidence for progressive thrombus. Increase in size in the cystic lesion at the pancreatic head which currently measures 6.0 x 5.8 cm. This previously measured 4.2 x 3.7 cm. There is hyperdense/enhancing material within this lesion. This favors internal hemorrhage. Underlying soft tissue components could also have a similar appearance. There is progressive inflammatory change surrounding this pancreatic head lesion consistent with an associated acute pancreatitis. There is enhance ment within the wall of this cystic lesion which is also slightly thickened. There is mild thickening of the adjacent duodenum which could represent a reactive duodenitis. Mild dilatation of the proximal common bile duct measuring up to 5 mm. This is likely due to the pancreatic head lesion. Mild peripancreatic lymphadenopathy has progressed. This may be reactive. Normal bladder. Trace pelvic free fluid. Colonic diverticulosis. No evidence for acute diverticulitis. No evidence for bowel obstruction. Normal appendix. IMPRESSION: 1. Increase in size in the 6.0 x 5.8 cm cystic lesion at the pancreatic head. This demonstrates a slightly thickened and enhancing wall as well as internal hyperdense/enhancing component. This could represent internal hemorrhage or enhancing soft tissue. The appearance is concerning for malignant degeneration of a cystic lesion. GI consultation/surgical consultation recommended for further evaluation. 2. Peripancreatic inflammatory change has progressed readily surrounding the pancreatic head. This likely represents an acute pancreatitis. 3. Thickening of the adjacent duodenum may represent a reactive duodenitis. 4. Mild peripancreatic lymphadenopathy which has progressed. 5. Hepatic steatosis. 6. Improvement in the nonocclusive thrombus within the portal vein and portosplenic confluence. CT SCAN CHEST 10/29/21: A few prominent distal paraesophageal lymph nodes which remain stable. Dominant lymph node measures 8 mm. Mild diffuse thickening within the esophagus which is partially fluid-filled. The thyroid gland enhances normally. No mediastinal or hilar lymphadenopathy. No pleural or pericardial effusions. The heart is normal in size. Normal caliber thoracic aorta with no evidence for dissection. No filling defects within the pulmonary arteries to suggest a pulmonary embolus. No suspicious lytic or blastic osseous lesions. No pneumothorax. The central airways are patent. No focal lung consolidations to suggest pneumonia. No evidence for pulmonary edema. IMPRESSION: 1. No evidence for pulmonary emboli. 2. Mild circumferential thickening of the esophagus. This favors a mild esophagitis. 3. Please refer to the same day abdomen and pelvis CT for further evaluation of the abdominal structures. Code Status & VTE Plan Code Status Full Code VTE Prophylaxis Plan VTE Prophylaxis will be ordered: No Reason for no VTE drug order: Contraindicated Reason for no VTE mechanical prophylaxis: Treatment not indicated Supervising Physician Co-Signing Physician Notes PA Supervision Note: I personally saw and examined the patient. I verified all bailey points and agree with REMEDIOS Mitchell with the following exceptions and/or additions: Patient is a 41-year-old male with recent admission for bilateral ankle and foot tenosynovitis and osteomyelitis requiring surgical debridement and long-term IV antibiotics. He presents to the ER today with nausea/vomiting and epigastric moderate abdominal pain x24 hours with development of some blood intermixed with his vomit. No melena or hematochezia. No real lightheadedness. No chest pains or shortness of breath, no fevers. No history of esophageal varices that are known. He has been taking Lovenox injections for his history of portal vein thrombosis and multiple DVTs Fortunately in the ER, his hemoglobin was stable on arrival at 12.2. He was actually hypertensive and tachycardic. He was having ongoing hiccups and nausea with vomiting when I saw him. His abdominal pain improved after he vomited. History and ROS reviewed as above. Vitals reviewed Gen: AAOx3, NAD, thin, appears older than given age HEENT: Anicteric sclerae, EOMI CV: RRR no mgr nl S1S2 Pulm: CTAB no wcr Abd: +BS soft NT ND no masses or hernias Ext: No edema, 2+ DP pulses Skin: No rashes, warm/dry Neuro: Full strength throughout Laboratory values and radiology studies reviewed 41-year-old male with history of pancreatitis with pseudocyst, osteomyelitis of the feet and ankles on IV antibiotics, alcohol use disorder, CKD stage III, here with hematemesis and abdominal pain, elevated lipase, and enlarging pancreatic pseudocyst as well as possible duodenitis and esophagitis. -Serial CBC -IV Protonix drip -Appreciate GI consultation-possible EGD tomorrow -Keep n.p.o. -Increase IV fluids 125 mL's per hour given ongoing acute pancreatitis seen on CT as well as abdominal pain and vomiting -Replace potassium chloride -Follow electrolytes, CBC -Hold home Lovenox for now given hematemesis which may be secondary to Rianna- Brantley tear versus gastritis or duodenitis or ulcer Do not suspect varices at this time as there is no large volume hematemesis and he is hemodynamically stable Type and screen for blood transfusion-blood consent signed and is on the chart at the time of admission Added Compazine and Zofran as needed for nausea PG Care Time/CCT Total # of Minutes Spent Total Time Spent with Patient: Total time spent is greater than 50% in coordination of care (as documented) at patient's floor/unit and/or counseling patient:42 Coding Level of Care Code 20928 Initial Inpt Care Lvl 3 Diagnoses Hematemesis K92.0 Vomiting R11.10 Elevated lipase R74.8 Pseudocyst, pancreas K86.3 Pancreatitis K85.90 Osteomyelitis of ankle or foot, left, acute M86.172 Portal vein thrombosis I81 Coagulopathy D68.9 Hypokalemia E87.6 Leukocytosis D72.829 Leukocytosis type: unspecified Alcohol use disorder Time Spent (min) 67 (1) Leukocytosis Leukocytosis type: unspecified Qualified Code(s): D72.829 - Elevated white blood cell count, unspecified
--- NOTE | 2021-10-29 14:18 | Electrocardiogram Report ---
Test Reason : Blood Pressure : / mmHG Vent. Rate : 121 BPM Atrial Rate : 121 BPM P-R Int : 160 ms QRS Dur : 084 ms QT Int : 328 ms P-R-T Axes : 014 -23 059 degrees QTc Int : 465 ms Sinus tachycardia Minimal voltage criteria for LVH, may be normal variant Nonspecific ST abnormality Abnormal ECG When compared with ECG of 10-OCT-2021 12:00, AL interval has decreased Confirmed by Neil Browne ([id number]) on 10/29/2021 2:18:19 PM Referred By: Jaja Cali Confirmed By:Neil Browne
[2021-10-29] MEDS ORDERED: POTASSIUM CHLORIDE / WTR 20 MEQ/100 ML PLCT IV STA (14:44)
[2021-10-29] MEDS ORDERED: MAGNESIUM SULFATE / D5W 1 GM/100 ML BAG IV ONE (14:44)
--- NOTE | 2021-10-29 15:37 | Gastrointestinal Consultation ---
Date of Consultation October 29, 2021 Assessment & Plan (1) Pseudocyst, pancreas: (2) Vomiting: (3) Elevated lipase: He presented for vomiting, unable to retain foods/liquids po. He has what appears to be blood tinged/very dark red/brown emesis so likely has some gastritis but Hb is stable, so not likely to represent a significant GI bleed. His vomiting may be due to gastric outlet obstruction from the pancreatic pseudocyst. His elevated WBC is likely secondary to the osteomyelitis and likely worsened with the stress of the vomiting. Elevated lipase is significantly high but lower compared to the past few months. He does not seem to have significant upper abdomen pain - does not appear to have a new acute pancreatitis. - Will check CTAP with IV contrast - Keep NPO, if significant drop in Hb/Hct or large amt of gross GI bleeding then will go forward with EGD tomorrow. - Continue IV antibiotics for osteomyelitis. - Will consider draining the pseudocyst if causing GOO. - Will continue to follow closely. This pt was discussed with Dr. Fragoso (GI attending at [facility] today) and Dr. Pressley (pt is scheduled for OP EUS Nov 13 with ). Supervising Physician Co-Signing Physician Notes Attending attestation I have seen, examined this patient, and agree with the findings and above by our mid-level provider YUNIEL Carmichael, with the following additions: - Has a complicated cyst that has concern of hemorrhage within it, will need to discuss if should have endoscopic drainage or not vs surgical referral - No signs of acute GI bleed, symptoms explained by likely esophagitis and supported by CT chest - IV BID PPI - Ok for liquid diet - scheduled zofran - Hold anticoagulation - will follow History of Present Illness Reason for Consultation: vomiting blood Requesting Physician: Dr. Ramirez Attending Physician: Dr. Ramirez History of Present Illness Mr. Anthony Sharif is 41 yr old male pt with a hx of HTN, alcohol abuse - abstaining x 2 months, ETOH pancreatitis in July, complicated by recurrent symptoms and a 4cm peripancreatic pseudocyst in September. He also has chronic lower ext wounds/ulcerations and has been on IV antibiotics at home since Oct 18 (Vanco and Cefepime). He is known to our group as he was seen in consult for the pancreatitis previously and an OP EUS is planned for Nov 13, 2021. He began with vomiting early yesterday morning, vomiting several times yesterday and again today and noticed a dark emesis (like coffee grounds color, but liquid), and has been unable to hold down fluids or retain any foods since this started yesterday morning. He vomiting about 650cc an hour or so ago here in the ED. Color appeared very dark red/brown. He denies any significant abdominal pain, saying, "just sore in the abd and chest from dry heaving." No fevers. No jaundice. No constipation or diarrhea recently. Most recent BM was yesterday morning and was normal - brown and formed. He has had a steady weight loss for months with another 8lbs in the last week. Allergies Allergy/AdvReac Type Severity Reaction Status Date / Time doxycycline Allergy Severe Joint Verified 10/29/21 11:53 Pain, Shortness of breath cephalexin Allergy Mild Rash Verified 10/29/21 11:53 Cipro Allergy Mild throat Verified 06/09/18 08:28 swells ciprofloxacin Allergy Mild throat Verified 10/29/21 11:53 swells Home Medications Medication Instructions Recorded Confirmed Type allopurinol 100 mg tablet 100 mg PO DAILY #90 tab 08/26/21 10/29/21 Rx enoxaparin 100 mg/mL subcutaneous 100 mg SUBCUT Q12H 30 Days #60 ml 10/03/21 10/29/21 Rx syringe multivitamin with folic acid 400 1 tab PO QAM 30 Days #30 tab 10/03/21 10/29/21 Rx mcg tablet (Daily-Lisa (with folic acid)) thiamine HCl (vitamin B1) 100 mg 300 mg PO QAM 30 Days #90 tab 10/03/21 10/29/21 Rx tablet (Vitamin B-1) blood pressure test kit-large #1 ea 10/25/21 10/25/21 Rx Patient History Medical History Acute dehydration Acute kidney injury Anemia Arthritis Chronic kidney disease with symptom management only, stage 4 (severe) Chronic venous insufficiency Deep vein thrombosis 07/2018/CHRONIC- ON ELIQUIS HTN (hypertension) Hypomagnesemia MVP (mitral valve prolapse) 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 ECHO Secondary hyperparathyroidism of renal origin Staphylococcus aureus infection Superficial thrombosis of leg PER RECORDS Tachycardia UTI (urinary tract infection) Venous ulcer RECURRENT VENOUS ULCERATION (REASON FOR PROCEDURE) Vitamin D deficiency Surgical History Hx of biopsy LEFT KIDNEY S/P vascular surgery LLE 2/2 VENOUS INSUFFICIENCY Family History Mother FHx: lung cancer Hypertension Breast cancer Brother FHx: testicular cancer Hypertension Father Hypertension Unknown Myocardial infarction Social History Smoking Status: Never smoker Second Hand Exposure: No; Hx Alcohol Use: Yes Alcohol type: hard liquor Alcohol Intake Frequency Comment: daily Hx Substance Use: No Preferred Language: Pashto Communication Ability: Effective Visual Impairment: No Limitations Relief Salesperson Required: No Beliefs That Will Affect Care: None marital status: Single Current Living Situation: Significant Other Current Living Situation Comment: [facility] KIDS How many Children do You have: 0 Feels Safe at Home: Yes Assistive Devices: Wheelchair Review of Systems Review of Systems: ROS: Gen: + general weakness; slow/steady weight loss for month (was 222 lbs ->194 last week ->186.4 today). No fevers. loss Eyes: No eye redness, or pain, no recent vision changes, no yellow eyes Resp: + SOB with exertion; no cough Cardio: No palpitations/irregular beats,+ "sore chest from dry heaving" GI: No abdominal pain, no nausea/vomiting : Denies pain on urination Skin: No jaundice, itching or new rashes Ext: multiple non healing lower leg skin lesions Physical Exam Constitutional: well developed, + ill appearing, + thin and cooperative Eyes: PERRL, conjunctivae normal, anicteric sclerae ENMT: external ear and nose normal, oropharynx normal Neck: trachea midline, no thyromegaly Respiratory: normal respiratory effort, lungs clear to auscultation Cardiovascular: RRR, no murmur, no edema Gastrointestinal (Abdomen): normal bowel sounds, soft, nontender, no hepatosplenomegaly Musculoskeletal: Mild redness over the metatarsals of each feet Skin: + dry skin dry dull red/brown skin with multiple open, non draining, scabbing lesions on the feet/ankles. Neurologic: PERRL, EOMI, accommodation nl, no face palsy, no dysarthria awake; not confused Psychiatric: Orientation: alert, oriented x 3 and cooperative Lymphatic: no cervical or axillary lymphadenopathy Results & Data ([facility]) Vital Signs (Past 12 Hours) Vital Signs Temp Pulse Resp BP BP Pulse Ox 10/29/21 15:26 130 H 20 159/118 H 99 10/29/21 12:50 150/115 H 10/29/21 12:30 71 16 10/29/21 12:00 131 H 24 99 10/29/21 11:30 119 H 23 98 10/29/21 11:10 128 H 14 99 10/29/21 09:54 36.5 C 133 H 18 147/104 H 98 Laboratory Results WBC 33.9, Hb 12.2, Hct 35.3, Plts 440, Na 139, K 2.7, Cl106, CO2 22, BUN 25, Cr 1.54. Lipase 5428 T Bili 0.6, AST 24, ALT 25, Alk Phos 133 Diagnostic Findings CXR 10/29/21: 1. No active disease in the chest. 2. A right-sided PICC line is n ew from previous.
[2021-10-29] MEDS: POTASSIUM CHLORIDE / WTR 20 MEQ/100 ML PLCT IV SCH ×2 (15:58→18:31)
[2021-10-29] MEDS ORDERED: ONDANSETRON INJ 2 MG/ML 2 ML VIAL IV PRN (16:48)
[2021-10-29] MEDS ORDERED: ACETAMINOPHEN 325 MG TAB PO PRN (16:48)
[2021-10-29] MEDS ORDERED: VANCOMYCIN CONSULT ACTIVE PRN (16:48)
[2021-10-29] MEDS ORDERED: ALUMINUM/MAGNESIUM SUSP 30 ML UDC PO PRN (16:48)
[2021-10-29] MEDS ORDERED: NITROGLYCERIN SL 0.4 MG/TAB TAB SL PRN (16:48)
[2021-10-29] MEDS ORDERED: LORazepam 1 MG TAB PO PRN (16:48)
[2021-10-29] MEDS ORDERED: ZOLPIDEM TARTRATE 5 MG TAB PO PRN (16:48)
[2021-10-29] MEDS ORDERED: POLYETHYLENE (MIRALAX) 17 GM PACK PO PRN (16:48)
[2021-10-29] MEDS ORDERED: PROCHLORPERAZINE 10 MG in SYRINGE 8 ML IV PRN (16:48)
[2021-10-29] MEDS ORDERED: MAGNESIUM HYDROXIDE SUSP 30 ML UDC PO PRN (16:48)
[2021-10-29] MEDS ORDERED: OPTIRAY 320 125ml IV ONE (16:56)
--- NOTE | 2021-10-29 17:04 | CT Scan Report ---
CHEST CTA for PULMONARY ARTERIES CT DOSE: HISTORY: Abnormal Weight loss, Chronic venous thrombus TECHNIQUE: Multiaxial CT images of the chest were performed following the intravenous administration of contrast to evaluate the pulmonary arteries. Maximal intensity projection images were also obtaine d. A dose lowering technique was utilized adhering to the principles of ALARA. COMPARISON STUDY: None. FINDINGS: Please refer to the same day abdomen and pelvis CT for further evaluation of the abdominal structures. A few prominent distal paraesophageal lymph nodes which remain stable. Dominant lymph nod e measures 8 mm. Mild diffuse thickening within the esophagus which is partially fluid-filled. The th yroid gland enhances normally. No mediastinal or hilar lymphadenopathy. No pleural or pericardial eff usions. The heart is normal in size. Normal caliber thoracic aorta with no evidence for dissection. N o filling defects within the pulmonary arteries to suggest a pulmonary embolus. No suspicious lytic o r blastic osseous lesions. No pneumothorax. The central airways are patent. No focal lung consolidati ons to suggest pneumonia. No evidence for pulmonary edema. IMPRESSION: 1. No evidence for pulmonary emboli. 2. Mild circumferential thickening of the esophagus. This favors a mild esophagitis. 3. Please refer to the same day abdomen and pelvis CT for further evaluation of the abdominal structu res. ACT 112: Negative or not required by law. Electronically signed by: Omar Duque M.D. 10/29/2021 5:03 PM
--- NOTE | 2021-10-29 17:16 | CT Scan Report ---
ABDOMEN AND PELVIS CT WITH IV CONTRAST CT DOSE: 871.29 mGy.cm HISTORY: Hematemesis, portal vein thrombosis, pancreatic cystic lesion. TECHNIQUE: Multiaxial CT images of the abdomen and pelvis were performed following the use of intrave nous contrast. A dose lowering technique was utilized adhering to the principles of ALARA. COMPARISON STUDY: Abdomen and pelvis CT 10/01/2021. FINDINGS: Please refer to same day chest CT for further evaluation of the lung bases. No pneumoperito neum. No pneumatosis. No suspicious lytic or blastic osseous lesions. Partial fusion of the left sacr oiliac joint is again noted. The tip of the right PICC terminates at the superior cavoatrial junction . Hepatic steatosis. No hepatic or splenic masses. The gallbladder, adrenal glands, and kidneys are u nremarkable. Improvement in the partial thrombus seen within the left portal veins and portosplenic c onfluence. No evidence for progressive thrombus. Increase in size in the cystic lesion at the pancrea tic head which currently measures 6.0 x 5.8 cm. This previously measured 4.2 x 3.7 cm. There is hyper dense/enhancing material within this lesion. This favors internal hemorrhage. Underlying soft tissue components could also have a similar appearance. There is progressive inflammatory change surrounding this pancreatic head lesion consistent with an associated acute pancreatitis. There is enhancement w ithin the wall of this cystic lesion which is also slightly thickened. There is mild thickening of th e adjacent duodenum which could represent a reactive duodenitis. Mild dilatation of the proximal comm on bile duct measuring up to 5 mm. This is likely due to the pancreatic head lesion. Mild peripancrea tic lymphadenopathy has progressed. This may be reactive. Normal bladder. Trace pelvic free fluid. Co lonic diverticulosis. No evidence for acute diverticulitis. No evidence for bowel obstruction. Normal appendix. IMPRESSION: 1. Increase in size in the 6.0 x 5.8 cm cystic lesion at the pancreatic head. This demonstrates a sli ghtly thickened and enhancing wall as well as internal hyperdense/enhancing component. This could rep resent internal hemorrhage or enhancing soft tissue. The appearance is concerning for malignant degen eration of a cystic lesion. GI consultation/surgical consultation recommended for further evaluation. 2. Peripancreatic inflammatory change has progressed readily surrounding the pancreatic head. This li fany represents an acute pancreatitis. 3. Thickening of the adjacent duodenum may represent a reactive duodenitis. 4. Mild peripancreatic lymphadenopathy which has progressed. 5. Hepatic steatosis. 6. Improvement in the nonocclusive thrombus within the portal vein and portosplenic confluence. ACT 112: Positive. There are findings on this exam that require communication between the performing entity and the patient following Patient Test Result Information Act ([place] Act 112) guidelines. Electronically signed by: Omar Duque M.D. 10/29/2021 5:15 PM
[2021-10-29 17:25] LABS: Hematocrit (blood only) 32.2 % (42-52); Hemoglobin 11.1 g/dL (14.0-18.0); Mean Corpuscular Hemoglobin 34.4 pg (25-34); Mean Corpuscular Hgb Conc 34.5 g/dL (32-36); Mean Corpuscular Volume 99.7 fL (80-100); Mean Platelet Volume 8.8 fL (7.4-10.4); Platelet Count 428 K/uL (130-400); RDW Coefficient of Variation 13.8 % (11.5-14.5); RDW Standard Deviation 50.2 fL (36.4-46.3); Red Blood Count 3.23 M/uL (4.7-6.1); White Blood Count 28.82 K/uL (4.8-10.8)
[2021-10-29] MEDS ORDERED: IRON SUCROSE 300 MG in SODIUM CHLORIDE 0.9% 250 ML IV ONE (17:30)
[2021-10-29 17:52] LABS: BUN Creatinine Ratio 17.4 (10-20); Est GFR (African American) 66.2 ml/min; Est GFR (Non-African American) 57.1 ml/min; Potassium 2.8 mmol/L (3.5-5.1)
[2021-10-29 17:58] LABS: Basophils # (auto) 0.04 K/uL (0-0.2); Basophils % (auto) 0.1 %; Eosinophils # (auto) 0.11 K/uL (0-0.5); Eosinophils % (auto) 0.4 %; Immature Granulocytes # (auto) 0.13 K/uL (0.00-0.02); Immature Granulocytes % (auto) 0.5 %; Lymphocytes # (auto) 1.27 K/uL (1.2-3.4); Lymphocytes % (auto) 4.4 %; Monocytes # (auto) 2.19 K/uL (0.11-0.59); Monocytes % (auto) 7.6 %; Neutrophils # (auto) 25.08 K/uL (1.4-6.5)
[2021-10-29 18:19] LABS: Magnesium 1.8 mg/dl (1.8-2.4)
[2021-10-29] MEDS: NSS + 20MEQ KCL 20 MEQ/1,000 ML BAG IV SCH (18:27)
[2021-10-29] MEDS: PANTOprazole 40 MG in DEXTROSE 5% 100 ML IV SCH ×2 (19:09→23:13)
[2021-10-29] MEDS: CEFEPIME 2,000 MG in SYRINGE 0 ML IV SCH (20:48)
[2021-10-29] MEDS ORDERED: VANCOMYCIN HCL 1,250 MG in SODIUM CHLORIDE 0.9% 250 ML IV SCH (21:15)
--- NOTE | 2021-10-29 21:19 | Pharmacy Report ---
Pharmacy Abx Dose Short Note - Date of Service October 29, 2021 - Assessment & Plan Assessment 41 year old M receiving vanc/cefepime for treatment of osteomyelitis, on vancomycin 1250 mg q24H outpatient. Patient states he has not received doses of antibiotics today. Random level 19.3. Will redose with 1250 mg (14.7 MG/KG) q24H, SCr slightly bumped from previous. Plan Vancomycin * Random level 19.3 mcg/mL * Restart 1250 mcg/mL q24H * Will order trough once previous doses further elucidated * Trough currently not ordered Pharmacy will continue to follow and will adjust dose/frequency as necessary. Thank you.
[2021-10-30] MEDS: PANTOprazole 40 MG in DEXTROSE 5% 100 ML IV SCH ×5 (03:44→23:02)
[2021-10-30] MEDS: NSS + 20MEQ KCL 20 MEQ/1,000 ML BAG IV SCH (03:45)
[2021-10-30] MEDS: CEFEPIME 2,000 MG in SYRINGE 0 ML IV SCH ×3 (04:04→19:14)
[2021-10-30 07:09] LABS: Basophils # (auto) 0.07 K/uL (0-0.2); Basophils % (auto) 0.3 %; Eosinophils # (auto) 0.47 K/uL (0-0.5); Eosinophils % (auto) 2.2 %; Hematocrit (blood only) 31.3 % (42-52); Hemoglobin 10.8 g/dL (14.0-18.0); Immature Granulocytes # (auto) 0.04 K/uL (0.00-0.02); Immature Granulocytes % (auto) 0.2 %; Lymphocytes # (auto) 1.86 K/uL (1.2-3.4); Lymphocytes % (auto) 8.5 %; Mean Corpuscular Hgb Conc 34.5 g/dL (32-36); Mean Corpuscular Volume 101.3 fL (80-100); Mean Platelet Volume 9.2 fL (7.4-10.4); Monocytes # (auto) 1.57 K/uL (0.11-0.59); Monocytes % (auto) 7.2 %; Neutrophils # (auto) 17.85 K/uL (1.4-6.5); Neutrophils % (auto) 81.6 %; Platelet Count 402 K/uL (130-400); RDW Coefficient of Variation 14.1 % (11.5-14.5); RDW Standard Deviation 52.1 fL (36.4-46.3); Red Blood Count 3.09 M/uL (4.7-6.1); White Blood Count 21.86 K/uL (4.8-10.8)
[2021-10-30 07:31] LABS: BUN Creatinine Ratio 16.9 (10-20); Calcium 9.1 mg/dl (8.5-10.1); Creatinine Clr Calc Pharmacy 75.4 ml/min; Est GFR (African American) 62.6 ml/min; Magnesium 1.9 mg/dl (1.8-2.4); Phosphorus 2.4 mg/dl (2.5-4.9); Potassium 3.3 mmol/L (3.5-5.1)
[2021-10-30] MEDS ORDERED: POTASSIUM CHLORIDE CRTAB 20 MEQ TABCR PO STA (07:51)
--- NOTE | 2021-10-30 07:56 | Hospitalist Progress Note ---
Date of Service October 30, 2021 Assessment & Plan (1) Hematemesis: Plan: Mr. Sharif is a 41 year old male with a complex PMH as in H&P who presented to [facility] ER with hematemesis after persistent n/v for 1 day. Hematemesis - Diet to full liquids per GI - PPI to BID dosing per GI - GI consulted: - Vomiting likely caused by gastric outlet obstruction from pancreatic cyst - No signs of acute GI bleed - IV BID PPI - Ok for liquid diet - scheduled zofran - Hold anticoagulation - Thorazine for hiccups - Follow CBC Pancreatic cyst - CT a/p with evidence of enlargement from prior one month ago - Has EUS scheduled as outpatient - GI c/s: - Has a complicated cyst that has concern of hemorrhage within it, will need to discuss if should have endoscopic drainage or not vs surgical referral Osteomyelitis Status post bilateral ankle and foot washouts with antibiotic beads placed during last admission - Continue IV Vancomycin 1250 mg q 24 hours. - Continue IV Cefepime 2000 mg q 12 hours. - He is currently on day #20 of 28 of this regimen. - Ortho consult: - Considering another primary closure versus continue to watch for now and regular dressing changes. - Heel weightbearing only on the right foot for bathroom privileges only. - Daily dressing changes. - Continue IV abx. Portal vein thrombosis - Lovenox on hold due to GI bleeding Coagulopathy - follows with Hematology - Recent extensive hypercoagulable work-up, most test results are not back yet. - Lovenox on hold for now due to GI bleeding. Leukocytosis - WBC count elevated at 33, with neutrophilia - Had persistent leukocytosis during last admission for osteomyelitis as well as on outpatient labs from 1 week ago - Leukocytosis much worse today likely secondary to nausea/vomiting, but also with enlarging pancreatic cyst likely contributing - He is somewhat iron deficient and some of this could be secondary to iron deficiency anemia - Follow CBC - Continue antibiotics for osteomyelitis Alcohol use disorder - Previous history of such, patient currently denies ongoing alcohol use - AWSS ordered - Ativan as needed CODE: FULL Diet: Full liquids per GI DVT ppx: No chemoppx due to GI bleed Dispo: Telemetry (2) Pseudocyst, pancreas: (3) Vomiting: (4) Elevated lipase: (5) Osteomyelitis of ankle or foot, left, acute: (6) Leukocytosis: (7) Alcohol use disorder: Admission and Anticipated Discharge Date Admission Date: October 29, 2021 Supervising Physician Co-Signing Physician Notes I personally saw and examined the patient. I verified all bailey points and agree with Dr. Crowell with the following exceptions and/or additions: Patient is a 41-year-old male with recent admission for bilateral ankle and foot tenosynovitis and osteomyelitis requiring surgical debridement and long-term IV antibiotics. He presents to the ER today with nausea/vomiting and epigastric moderate abdominal pain x24 hours with development of some blood intermixed with his vomit. No melena or hematochezia. No real lightheadedness. No chest pains or shortness of breath, no fevers. No history of esophageal varices that are known. He has been taking Lovenox injections for his history of portal vein thrombosis and multiple DVTs . History and ROS reviewed as above. Vitals reviewed Gen: AAOx3, NAD, thin, appears older than given age Laboratory values and radiology studies reviewed 41-year-old male with history of pancreatitis with pseudocyst, osteomyelitis of the feet and ankles on IV antibiotics, alcohol use disorder, CKD stage III, here with hematemesis and abdominal pain, elevated lipase, and enlarging pancreatic pseudocyst as well as possible duodenitis and esophagitis. -Serial CBC -IV Protonix drip -Appreciate GI consultation-Hemoglobin has remained stable. likely esophagitis per GI. -If Gi does not do an endoscopy in patient, will recommend followup with GI as an outpatient, given his mild elevation of INR, alcohol history and portal vein thrombosis. Concern over patient having portal hypertension. -Hold home Lovenox for now given hematemesis which may be secondary to Rianna- Brantley tear versus gastritis or duodenitis or ulcer Do not suspect varices at this time as there is no large volume hematemesis and he is hemodynamically stable Added Compazine and Zofran as needed for nausea Subjective Seen at bedside this AM. Immediately prior to my arrival he had vomited a small amount of fluid that was pink-tinged. He said at that time that this was much better than before. Still felt mildly nauseous. Deying fever, chills, abd pain, CP, palp, SOB. Review of Systems Review of Systems: per subjective Physical Exam Physical Exam: GENERAL: A&Ox3. NAD. HEENT: PERRL, EOMI. Moist mucous membranes. CHEST/LUNGS: CTAB A/P. No crackles, wheezes, rales, rhonchi. HEART: RRR. No m/g/r. ABDOMEN: NT/ND, soft. BS+ x4. EXTREMITIES: No cyanosis, no clubbing, no edema. SKIN: Warm and dry. No rashes or lesions. NEUROLOGIC: TNo FND. CN II-XII grossly intact. Results & Data Results & Data ([facility]) Vital Signs (Past 12 Hours) Vital Signs Temp Pulse Resp BP Pulse Ox 10/30/21 07:10 36.5 C 105 H 16 142/98 H 98 10/30/21 04:22 36.4 C L 104 H 20 142/85 H 98 10/30/21 00:38 36.6 C 110 H 20 137/97 100 10/29/21 23:38 106 H 18 130/95 94 10/29/21 22:15 103 H 18 138/97 98 Resident Activity Tracking Resident Involvement: Resident Care Provided Care Provided: Adult Hospital Medicine (1) Leukocytosis Leukocytosis type: unspecified Qualified Code(s): D72.829 - Elevated white blood cell count, unspecified (2) Hematemesis Nausea presence: with nausea Qualified Code(s): K92.0 - Hematemesis
[2021-10-30] MEDS: MULTIVITAMIN TAB PO SCH (08:08)
[2021-10-30] MEDS ORDERED: VANCOMYCIN HCL 1,250 MG in SODIUM CHLORIDE 0.9% 250 ML IV SCH (09:00)
[2021-10-30] MEDS: allopurinoL 100 MG TAB PO SCH (09:16)
[2021-10-30] MEDS: THIAMINE HCL 100 MG TAB PO SCH (09:16)
--- NOTE | 2021-10-30 09:22 | Gastroenterology Progress Note ---
Date of Service October 30, 2021 Assessment & Plan (1) Pseudocyst, pancreas: (2) Vomiting: (3) Elevated lipase: Plan: Vomiting likely from gastric outlet obstruction caused by the pseudocyst. Would likely tolerate sips of full liquids and could be treated conservatively in that manor until his previously scheduled. Axios stent insertion to continually drain the cyst would be an ideal tx, but we do not have access to that equipment here. It could be done as an OP at [facility]. - Continue IV antibiotics for osteomyelitis/cellulitis. - full liquid diet. Drink small amts frequently. - Scheduled Zofran for nausea. - Small dose thorazine prn for hiccoughs. - Will continue to follow Admission and Anticipated Discharge Date Admission Date: October 29, 2021 Supervising Physician Co-Signing Physician Notes Attending attestation I have seen, examined this patient, and agree with the findings and above by our mid-level provider YUNIEL Carmichael, with the following additions: - Has a complicated cyst that has concern of hemorrhage within it, will need to discuss if should have endoscopic drainage or not vs surgical referral - No signs of acute GI bleed, symptoms explained by likely esophagitis and supported by CT chest - IV BID PPI - Ok for liquid diet - scheduled zofran - Hold anticoagulation - will follow Subjective 41 yr old male admitted 1 for vomiting x 2 days. Hx of ETOH pancreatitis with pseudocyst. CT yesterday showing enlarging cyst, pancreatitis, and secondary duodenitis. Vomited 650cc dark emesis yesterday mid day. One small emesis soon after taking Kcl tabs today, otherwise no vomiting. + Hiccoughs. Minimal nausea. Minimal to no abdominal pain. Review of Systems Review of Systems: ROS: Gen: + general weakness; + weight loss No fevers. Eyes: No eye redness, or pain, no recent vision changes, no yellow eyes Resp: + SOB with exertion(prior to arrival); no cough Cardio: No palpitations/irregular beats,+ "sore chest from dry heaving" GI: Continues to deny abdominal pain, no vomiting since soon after arrival. : Denies pain on urination Skin: No jaundice, itching or new rashes Ext: multiple non healing lower leg skin lesions Endocrine: Feels thirsty Physical Exam Constitutional: well developed, + ill appearing, + thin and cooperative Eyes: PERRL, conjunctivae normal, anicteric sclerae ENMT: external ear and nose normal, oropharynx normal Neck: trachea midline, no thyromegaly Respiratory: normal respiratory effort, lungs clear to auscultation Cardiovascular: RRR, no murmur, no edema Gastrointestinal (Abdomen): normal bowel sounds, soft, nontender, no hepatosplenomegaly Skin: + dry skin Multiple open/scabbing skin lesions on ankles/feet. toes/fore foot with sutures. Neurologic: PERRL, EOMI, accommodation nl, no face palsy, no dysarthria awake; not confused Psychiatric: Orientation: alert, oriented x 3 and cooperative Lymphatic: no cervical or axillary lymphadenopathy Results & Data ([facility]) Vital Signs (Past 12 Hours) Vital Signs Temp Pulse Pulse Resp BP Pulse Ox 10/30/21 08:36 107 H 10/30/21 07:10 36.5 C 105 H 16 142/98 H 98 10/30/21 04:22 36.4 C L 104 H 20 142/85 H 98 10/30/21 00:38 36.6 C 110 H 20 137/97 100 10/29/21 23:38 106 H 18 130/95 94 10/29/21 22:15 103 H 18 138/97 98 Laboratory Results WBC 21, Hb 10.8, Hct 31.8, Plts 402, Na 144, K 3.3, Cl 113, CO2 23, BUN 26, Cr 1.5, glucose 103. Lipase 5428->5099 Diagnostic Findings CTAP w IV contrast 10/29/21: 1.. Increase in size in the 6.0 x 5.8 cm cystic lesion at the pancreatic head. This demonstrates a slightly thickened and enhancing wall as well as internal hyperdense/enhancing component. This could represent internal hemorrhage or enhancing soft tissue. The appearance is concerning for malignant degeneration of a cystic lesion. GI consultation/surgical consultation recommended for further evaluation. 2. Peripancreatic inflammatory change has progressed readily surrounding the pancreatic head. This likely represents an acute pancreatitis. 3. Thickening of the adjacent duodenum may represent a reactive duodenitis. 4. Mild peripancreatic lymphadenopathy which has progressed. 5. Hepatic steatosis. 6. Improvement in the nonocclusive thrombus within the portal vein and portosplenic confluence.
[2021-10-30] MEDS: ondansetron HCL 6 MG in DEXTROSE 5% 50 ML IV SCH ×3 (12:20→23:06)
[2021-10-30] MEDS: chlorproMAZINE HCL 10 MG TAB PO PRN ×2 (12:25→18:38)
--- NOTE | 2021-10-30 13:08 | Orthopedic Consultation ---
Date of Consultation October 30, 2021 Assessment & Plan (1) Cellulitis: Status post 18 days postop 1. Left ankle incision and drainage of abscess. 2. Tenosynovectomy septic left Achilles tendon.3. Incision and drainage of abscess, lateral foot.4. Incision and drainage, left second toe abscess.5. Tenosynovectomy septic left second extensor tendon.6. Tenosynovectomy, left third septic extensor tendon.7. Incision and drainage of abscess in the medial left lower leg.8. Application of antibiotic Stimulan beads, left lower extremity, multiple incisions as noted above.9. Right ankle incision and drainage of abscess.10. Tenosynovectomy, right septic Achilles tendon.11. Application of antibiotic Stimulan beads, right lower extremity. Overall, his feet have looked better and I have seen them in the last time he has been here. A lot of his swelling is down and he has no evidence of cellulitis or erythema. It appears that his infections of his feet are under control however with the opening of the wound on the right ankle area, will need to discuss with Dr. Ghosh whether he is going to plan on another primary closure versus continue to watch for now and continue regular dressing changes. Consider bedside commode at this time. Heel weightbearing only on the right foot for bathroom privileges only. Daily dressing changes. Continue IV antibx. History of Present Illness Reason for Consultation: Postop visit Attending Physician: Raimundo Villa History of Present Illness Is a 41-year-old white male known to our practice who underwent multiple irrigation and debridements of the left and right foot. Patient was discharged to home on IV antibiotics and was approximately 8 days out prior to the antibiotics being stopped. Patient states that he had spoken to Dr. Ghosh and was allowed to start weightbearing on the right foot and he would get up to use the bedside commode. Overall he states that the feet have been healing well although when he started weightbearing on the right foot, some of the stitches opened up on the wound on his right foot and he could see the antibiotic beads inside. He denies any increased pain, swelling, erythema in this area. He was supposed to follow-up with Dr. Ghosh today in the office. However, the patient began having nausea and vomiting over the last several days to the point where his home health nurse yesterday noticed blood-tinged emesis and felt he should come to the emergency room. He was thusly admitted by the hospitalist service for further care. We have been asked to see him a wound check on both feet. Allergies Allergy/AdvReac Type Severity Reaction Status Date / Time doxycycline Allergy Severe Joint Verified 10/29/21 11:53 Pain, Shortness of breath cephalexin Allergy Mild Rash Verified 10/29/21 11:53 Cipro Allergy Mild throat Verified 06/09/18 08:28 swells ciprofloxacin Allergy Mild throat Verified 10/29/21 11:53 swells Home Medications Medication Instructions Recorded Confirmed Type allopurinol 100 mg tablet 100 mg PO DAILY #90 tab 08/26/21 10/29/21 Rx enoxaparin 100 mg/mL subcutaneous 100 mg SUBCUT Q12H 30 Days #60 ml 10/03/2101/15 Rx syringe multivitamin with folic acid 400 1 tab PO QAM 30 Days #30 tab 10/03/21 10/29/21 Rx mcg tablet (Daily-Lisa (with folic acid)) thiamine HCl (vitamin B1) 100 mg 300 mg PO QAM 30 Days #90 tab 10/03/21 10/29/21 Rx tablet (Vitamin B-1) blood pressure test kit-large #1 ea 10/25/21 10/25/21 Rx Patient History Medical History Acute dehydration Acute kidney injury Anemia Arthritis Chronic kidney disease with symptom management only, stage 4 (severe) Chronic venous insufficiency Deep vein thrombosis 07/2018/CHRONIC- ON ELIQUIS HTN (hypertension) Hypomagnesemia MVP (mitral valve prolapse) 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 ECHO Secondary hyperparathyroidism of renal origin Staphylococcus aureus infection Superficial thrombosis of leg PER RECORDS Tachycardia UTI (urinary tract infection) Venous ulcer RECURRENT VENOUS ULCERATION (REASON FOR PROCEDURE) Vitamin D deficiency Surgical History Hx of biopsy LEFT KIDNEY S/P vascular surgery LLE 2/2 VENOUS INSUFFICIENCY Family History Mother FHx: lung cancer Hypertension Breast cancer Brother FHx: testicular cancer Hypertension Father Hypertension Unknown Myocardial infarction Social History Smoking Status: Never smoker Second Hand Exposure: No; Hx Alcohol Use: Yes Alcohol type: hard liquor Alcohol Intake Frequency Comment: daily Hx Substance Use: No Preferred Language: Persian Communication Ability: Effective Visual Impairment: No 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 He has no complaints with his bilateral lower extremities. Dressings are on both feet. These are removed. Wounds on the dorsum of his left forefoot are healing well and benign. Wound on his Achilles area continues to remain well approximated. He does have some eschar in the central portion that has widened out. There is no overt drainage noted at this time. There is no erythema noted. He also has an area that was a blister on the central posterior section of the Achilles area that appears much better with some eschar noted over the blister and no drainage. Examining the right foot, he has a wound that is over the medial aspect of the Achilles tendon. The sutures appear to have possibly popped across the whole of the wound. It is gapped open approximately a centimeter to a centimeter and a half at the widest point. He has some eschar n oted of the proximal portion of the wound. Distal portion of the wound has some slight pink base with yellow slough and stimulate and beads can be seen. He does not have much in the way of drainage, erythema of this wound. All wounds redressed. Results & Data ([facility]) Vital Signs (Past 12 Hours) Vital Signs Temp Pulse Pulse Resp BP Pulse Ox 10/30/21 11:34 36.7 C 100 H 17 150/110 H 100 10/30/21 08:36 107 H 10/30/21 07:10 36.5 C 105 H 16 142/98 H 98 10/30/21 04:22 36.4 C L 104 H 20 142/85 H 98
--- NOTE | 2021-10-30 20:50 | Billing Data ---
Date of Service October 30, 2021 Coding Level of Care Code 70862 Subseq Hosp Care Lvl 2
[2021-10-30] MEDS: VANCOMYCIN HCL 1,000 MG in SODIUM CHLORIDE 0.9% 250 ML IV SCH (21:04)
[2021-10-30] MEDS ORDERED: BACLOFEN 10 MG TAB PO PRN (21:32)
[2021-10-31] MEDS: CEFEPIME 2,000 MG in SYRINGE 0 ML IV SCH ×3 (03:01→21:01)
[2021-10-31] MEDS: PANTOprazole 40 MG in DEXTROSE 5% 100 ML IV SCH ×4 (04:01→20:52)
[2021-10-31] MEDS: ondansetron HCL 6 MG in DEXTROSE 5% 50 ML IV SCH ×3 (06:12→17:36)
[2021-10-31 07:19] LABS: Basophils # (auto) 0.07 K/uL (0-0.2); Basophils % (auto) 0.5 %; Eosinophils # (auto) 0.74 K/uL (0-0.5); Eosinophils % (auto) 5.1 %; Hematocrit (blood only) 28.8 % (42-52); Hemoglobin 9.4 g/dL (14.0-18.0); Immature Granulocytes # (auto) 0.04 K/uL (0.00-0.02); Immature Granulocytes % (auto) 0.3 %; Lymphocytes # (auto) 1.37 K/uL (1.2-3.4); Lymphocytes % (auto) 9.5 %; Mean Corpuscular Hemoglobin 33.6 pg (25-34); Mean Corpuscular Hgb Conc 32.6 g/dL (32-36); Mean Corpuscular Volume 102.9 fL (80-100); Mean Platelet Volume 8.8 fL (7.4-10.4); Monocytes # (auto) 0.93 K/uL (0.11-0.59); Monocytes % (auto) 6.5 %; Neutrophils # (auto) 11.24 K/uL (1.4-6.5); Neutrophils % (auto) 78.1 %; Platelet Count 366 K/uL (130-400); RDW Coefficient of Variation 14.1 % (11.5-14.5); RDW Standard Deviation 53.4 fL (36.4-46.3); White Blood Count 14.39 K/uL (4.8-10.8)
[2021-10-31] MEDS: MULTIVITAMIN TAB PO SCH (07:38)
[2021-10-31] MEDS: THIAMINE HCL 100 MG TAB PO SCH (07:38)
[2021-10-31] MEDS: allopurinoL 100 MG TAB PO SCH (07:38)
[2021-10-31 07:54] LABS: Albumin Level 2.2 gm/dl (3.4-5.0); BUN Creatinine Ratio 13.7 (10-20); Bilirubin Direct 1.1 mg/dl (0-0.2); Calcium 9.3 mg/dl (8.5-10.1); Creatinine Clr Calc Pharmacy 70.4 ml/min; Est GFR (African American) 57.6 ml/min; Est GFR (Non-African American) 49.7 ml/min; Potassium 3.2 mmol/L (3.5-5.1)
[2021-10-31 07:58] LABS: Bilirubin,Total 1.6 mg/dl (0.2-1); Total Protein 7.4 gm/dl (6.4-8.2)
--- NOTE | 2021-10-31 08:06 | Hospitalist Progress Note ---
Date of Service October 31, 2021 Assessment & Plan (1) Hematemesis: Plan: Mr. Sharif is a 41 year old male with a complex PMH as in H&P who presented to [facility] ER with hematemesis after persistent n/v for 1 day. Hematemesis - Diet to full liquids per GI - PPI to BID dosing per GI - GI consulted: - Continue clear liquids, small volume as tolerated - Continue antiemetics as needed - Continue analgesia as needed - Continue IV PPI - Can continue thorazine as needed - OP follow up with Dr. Pressley - Tolerating liquids, advance diet as tolerated, and when can tolerate diet can be discharged with outpatient follow-up. - Follow CBC Pancreatic cyst - CT a/p with evidence of enlargement from prior one month ago - Has EUS scheduled as outpatient - GI c/s: - Has a complicated cyst that has concern of hemorrhage within it, will need to discuss if should have endoscopic drainage or not vs surgical referral Osteomyelitis Status post bilateral ankle and foot washouts with antibiotic beads placed during last admission - Continue IV Vancomycin 1250 mg q 24 hours. - Continue IV Cefepime 2000 mg q 12 hours. - He is currently on day #20 of 28 of this regimen. - Ortho consult: - Considering another primary closure versus continue to watch for now and regular dressing changes. - Heel weightbearing only on the right foot for bathroom privileges only. - Daily dressing changes. - Continue IV abx. Portal vein thrombosis - Lovenox on hold due to GI bleeding Coagulopathy - follows with Hematology - Recent extensive hypercoagulable work-up, most test results are not back yet. - Lovenox on hold for now due to GI bleeding. Leukocytosis - WBC count elevated at 33, with neutrophilia - Had persistent leukocytosis during last admission for osteomyelitis as well as on outpatient labs from 1 week ago - Leukocytosis much worse today likely secondary to nausea/vomiting, but also with enlarging pancreatic cyst likely contributing - He is somewhat iron deficient and some of this could be secondary to iron deficiency anemia - Follow CBC - Continue antibiotics for osteomyelitis Alcohol use disorder - Previous history of such, patient currently denies ongoing alcohol use - AWSS ordered - Ativan as needed CODE: FULL Diet: Full liquids per GI DVT ppx: No chemoppx due to GI bleed, advance as tolerated Dispo: Telemetry (2) Pseudocyst, pancreas: (3) Vomiting: (4) Elevated lipase: (5) Osteomyelitis of ankle or foot, left, acute: (6) Leukocytosis: (7) Alcohol use disorder: Admission and Anticipated Discharge Date Admission Date: October 29, 2021 Supervising Physician Co-Signing Physician Notes I personally saw and examined the patient. I verified all bailey points and agree with Dr. Crowell with the following exceptions and/or additions: Patient is a 41-year-old male with recent admission for bilateral ankle and foot tenosynovitis and osteomyelitis requiring surgical debridement and long-term IV antibiotics. He presents to the ER today with nausea/vomiting and epigastric moderate abdominal pain x24 hours with development of some blood intermixed with his vomit. No melena or hematochezia. No real lightheadedness. No chest pains or shortness of breath, no fevers. No history of esophageal varices that are known. He has been taking Lovenox injections for his history of portal vein thrombosis and multiple DVTs . History and ROS reviewed as above. Vitals reviewed Gen: AAOx3, NAD, thin, appears older than given age Laboratory values and radiology studies reviewed 41-year-old male with history of pancreatitis with pseudocyst, osteomyelitis of the feet and ankles on IV antibiotics, alcohol use disorder, CKD stage III, here with hematemesis and abdominal pain, elevated lipase, and enlarging pancreatic pseudocyst as well as possible duodenitis and esophagitis. -Serial CBC -IV Protonix drip -Appreciate GI consultation-Hemoglobin has remained stable. likely esophagitis per GI. -If Gi does not do an endoscopy in patient, will recommend followup with GI as an outpatient, given his mild elevation of INR, alcohol history and portal vein thrombosis. Concern over patient having portal hypertension. -Hold home Lovenox for now given hematemesis which may be secondary to Rianna- Barntley tear versus gastritis or duodenitis or ulcer -Diet advanced to regular. -If hemoglobin is stable will discharge in AM. Do not suspect varices causing bleeding at this time as there is no large volume hematemesis and he is hemodynamically stable Added Compazine and Zofran as needed for nausea Subjective Seen at bedside this AM. Hiccups, nausea are better. No vomiting since yesterday. Says his stomach feels mildly uncomfortable still but ultimately better. Denies fever, chills, SOB, cough, CP, palp. Review of Systems Review of Systems: per subjective Physical Exam Physical Exam: GENERAL: A&Ox3. NAD. HEENT: PERRL, EOMI. Moist mucous membranes. CHEST/LUNGS: CTAB A/P. No crackles, wheezes, rales, rhonchi. HEART: RRR. No m/g/r. ABDOMEN: NT/ND, soft. BS+ x4. EXTREMITIES: No cyanosis, no clubbing, no edema. SKIN: Warm and dry. No rashes or lesions. NEUROLOGIC: TNo FND. CN II-XII grossly intact. Results & Data Results & Data ([facility]) Vital Signs (Past 12 Hours) Vital Signs Temp Pulse Pulse Resp BP Pulse Ox 10/31/21 06:59 37.0 C 90 18 142/93 H 98 10/31/21 03:43 37.0 C 94 H 17 134/93 99 10/30/21 23:47 36.8 C 116 H 18 133/90 96 10/30/21 23:19 110 H Resident Activity Tracking Resident Involvement: Resident Care Provided Care Provided: Adult Hospital Medicine (1) Leukocytosis Leukocytosis type: unspecified Qualified Code(s): D72.829 - Elevated white blood cell count, unspecified (2) Hematemesis Nausea presence: with nausea Qualified Code(s): K92.0 - Hematemesis
--- NOTE | 2021-10-31 09:25 | Gastroenterology Progress Note ---
Date of Service October 31, 2021 Assessment & Plan (1) Pancreatitis: Plan: 41 year old male with history of ETOH pancreatitis with pseudocyst, CT this admission showing enlarging cyst, pancreatitis, and secondary duodenitis. He has remained clinically stable, no further evidence of emesis or hematemesis, is tolerating small volume clear liquids and notes resolution of his hiccups. Continue clear liquids, small volume as tolerated Continue antiemetics as needed Continue analgesia as needed Continue IV PPI Can continue thorazine as needed OP follow up with Dr. Pressley Please see consultation note yesterday for additional recommendations Thank you for allowing us to participate in the care of this patient. Please call with any acute changes, questions or concerns. Please see addendum below with additional recommendation from my supervising physician. Admission and Anticipated Discharge Date Admission Date: October 29, 2021 Supervising Physician Co-Signing Physician Notes Attending attestation I have seen, examined this patient, and agree with the findings and above by our mid-level provider YUNIEL Henning, with the following additions: Tolerating liquids, advance diet as tolerated, air, and when can tolerate diet can be discharged with outpatient follow-up. Subjective Pt was seen and evaluated, chart reviewed. ABD US is present but less severe Did trial some clear liquids this AM No nausea, vomiting Hiccups resolved Review of Systems Review of Systems: All systems reviewed & are unremarkable except as noted in HPI & below Physical Exam Constitutional: WD/WN, vitals as above Respiratory: normal respiratory effort, lungs clear to auscultation Cardiovascular: RRR, no murmur, no edema Gastrointestinal (Abdomen): Inspection/Auscultation: normal bowel sounds Percussion/Palpation: + abdomen tender and abdomen soft; no guarding, abdomen not rigid and no abdominal mass Skin: no rashes, warm and dry Results & Data ([facility]) Vital Signs (Past 12 Hours) Vital Signs Temp Pulse Pulse Resp BP Pulse Ox 10/31/21 08:00 96 H 10/31/21 06:59 37.0 C 90 18 142/93 H 98 10/31/21 03:43 37.0 C 94 H 17 134/93 99 10/30/21 23:47 36.8 C 116 H 18 133/90 96 10/30/21 23:19 110 H Laboratory Results 10/31/21 10/31/21 Range/Units 06:51 06:46 WBC 14.39 H (4.8-10.8) K/uL RBC 2.80 L (4.7-6.1) M/uL Hgb 9.4 L (14.0-18.0) g/dL Hct 28.8 L (42-52) % MCV 102.9 H (80-100) fL MCH 33.6 (25-34) pg MCHC 32.6 (32-36) g/dL RDW Std Deviation 53.4 H (36.4-46.3) fL RDW Coeff of Machelle 14.1 (11.5-14.5) % Plt Count 366 (130-400) K/uL MPV 8.8 (7.4-10.4) fL Immature Gran % (Auto) 0.3 % Neut % (Auto) 78.1 % Lymph % (Auto) 9.5 % [place] % (Auto) 6.5 % Eos % (Auto) 5.1 % Baso % (Auto) 0.5 % Neut # (Auto) 11.24 H (1.4-6.5) K/uL Lymph # (Auto) 1.37 (1.2-3.4) K/uL [place] # (Auto) 0.93 H (0.11-0.59) K/uL Eos # (Auto) 0.74 H (0-0.5) K/uL Baso # (Auto) 0.07 (0-0.2) K/uL Immature Gran # (Auto) 0.04 H (0.00-0.02) K/uL Sodium 140 (136-145) mmol/L Potassium 3.2 L (3.5-5.1) mmol/L Chloride 109 H (98-107) mmol/L Carbon Dioxide 24 (21-32) mmol/L Anion Gap 7.0 (3-11) BUN 23 H (7-18) mg/dl Creatinine 1.66 H (0.6-1.4) mg/dl Est Cr Clr Drug Dosing 70.4 ml/min Est GFR ( Amer) 57.6 ml/min Est GFR (Non-Af Amer) 49.7 ml/min BUN/Creatinine Ratio 13.7 (10-20) Glucose 106 H (70-99) mg/dl Calcium 9.3 (8.5-10.1) mg/dl Total Bilirubin 1.6 H D (0.2-1) mg/dl Direct Bilirubin 1.1 H (0-0.2) mg/dl AST 85 H (15-37) U/L ALT 41 (12-78) Alkaline Phosphatase 299 H D (45-117) U/L Total Protein 7.4 D (6.4-8.2) gm/dl Albumin 2.2 L (3.4-5.0) gm/dl (1) Pancreatitis Chronicity: chronic Pancreatitis type: unspecified pancreatitis type Qualified Code(s): K86.1 - Other chronic pancreatitis
--- NOTE | 2021-10-31 14:18 | Pharmacy Report ---
Pharmacy Abx Dose Short Note - Date of Service October 31, 2021 - Assessment & Plan Assessment * 41 year old M receiving VANCOMYCIN IV + CEFEPIME for treatment of bilateral ankle cellulitis / foot osteomyelitis s/p surgical irrigation and debridement * Patient had been hospitalized 10/10 for B/L ankle/foot infections. VANCOMYCIN + CEFEPIME are a continuation of therapy that was initiated during that admission. He is to receive a total of 4 weeks abx therapy (from 10/12) per ID safety and health consultant recommendations. * Today is Day # of antimicrobial therapy. * Patient was admitted 10/29 for NV, hematemesis, JUN. * Renal fxn has not yet returned to baseline. Baseline SCr ~1.2, SCr 1.55 today. Plan Vancomycin * Empirically reduced VANCOMYCIN dose from 1250mg IV Q 24 hrs to 1000mg IV Q 24 hrs due to trough of 19.3 observed on date of admission along w/ JUN. Will ch denisse trough w/ 2nd dose of this regimen to confirm adequate clearance. Cefepime * eCrCl > 60, okay to continue 2gm IV Q 8 hrs. Pharmacy will continue to follow and will adjust dose/frequency as necessary. Thank you.
--- NOTE | 2021-10-31 14:53 | Ultrasound Report ---
US gallbladder HISTORY: 41 years-old Male cholestatic hepatic panel follow-up study in a patient with history of pa ncreatitis. COMPARISON: CT abdomen pelvis 10/29/2021, 10/01/2021, 08/20/2021 TECHNIQUE: Multiple real-time sonographic images of the abdominal right upper quadrant were obtained assessing grayscale appearance and color flow FINDINGS: Complex hypoechoic mass of the pancreatic head measures 5.9 x 5.4 x 6.3 cm with minimal areas of colo r flow centrally. Interstitial and peripancreatic edema is better appreciated on the recent CT abdome n and pelvis study. Echogenic parenchyma of the liver without mass or marginal nodularity. Patent por solis vein. The common bile duct is mildly dilated at 1.2 cm. No significant intrahepatic biliary ducta l dilation. The gallbladder is mildly distended without cholelithiasis or wall thickening. IMPRESSION: 1. Hypoechoic complex lesion of the pancreatic head with color flow is suspicious for a neoplasm. GI consultation with tissue sampling recommended. 2. Mild dilation of the common bile duct may be secondary to extrinsic mass effect from the pancreati c head lesion. 3. Hepatic steatosis. 4. Findings of acute pancreatitis are better seen on the recent CT study. ACT 112: Negative or not required by law. The above report was generated using voice recognition software. It may contain grammatical, syntax o r spelling errors. Electronically signed by: Kahlil Fishre M.D. 10/31/2021 2:52 PM
--- NOTE | 2021-10-31 20:24 | Billing Data ---
Date of Service October 31, 2021 Coding Level of Care Code 15423 Subseq Hosp Care Lvl 2
[2021-10-31] MEDS ORDERED: VANCOMYCIN TROUGH ONE (21:30)
[2021-10-31] MEDS: VANCOMYCIN HCL 1,000 MG in SODIUM CHLORIDE 0.9% 250 ML IV SCH (23:50)
[2021-11-01] MEDS: ondansetron HCL 6 MG in DEXTROSE 5% 50 ML IV SCH ×4 (00:50→18:34)
[2021-11-01] MEDS: PANTOprazole 40 MG in DEXTROSE 5% 100 ML IV SCH ×5 (02:00→23:01)
[2021-11-01] MEDS: MoRPHine SULFATE 2 MG/ML CARP IV PRN ×4 (06:15→23:00)
[2021-11-01] MEDS: CEFEPIME 2,000 MG in SYRINGE 0 ML IV SCH ×3 (06:16→21:06)
[2021-11-01 08:03] LABS: Basophils # (auto) 0.06 K/uL (0-0.2); Basophils % (auto) 0.5 %; Eosinophils # (auto) 0.88 K/uL (0-0.5); Eosinophils % (auto) 7.5 %; Hematocrit (blood only) 29.7 % (42-52); Hemoglobin 9.8 g/dL (14.0-18.0); Immature Granulocytes # (auto) 0.02 K/uL (0.00-0.02); Immature Granulocytes % (auto) 0.2 %; Lymphocytes # (auto) 1.44 K/uL (1.2-3.4); Lymphocytes % (auto) 12.3 %; Mean Corpuscular Hemoglobin 33.4 pg (25-34); Mean Corpuscular Volume 101.4 fL (80-100); Mean Platelet Volume 8.5 fL (7.4-10.4); Monocytes # (auto) 0.82 K/uL (0.11-0.59); Neutrophils # (auto) 8.48 K/uL (1.4-6.5); Neutrophils % (auto) 72.5 %; Platelet Count 387 K/uL (130-400); RDW Coefficient of Variation 13.7 % (11.5-14.5); RDW Standard Deviation 51.6 fL (36.4-46.3); Red Blood Count 2.93 M/uL (4.7-6.1)
--- NOTE | 2021-11-01 08:10 | Discharge Summary ---
Date of Service November 01, 2021 Admission HPI Per Admitting Provider Mr. Sharif is a 41 year old male with a history of a Pancreatic Mass (Pseudocyst), Portal Venous Thrombosis, Stage IV CKD, Secondary Hyperparathyroidism, MVP with Moderate MR, Pancreatitis, Alcohol Use Disorder, Chronic Venous Insufficiency, Chronic Venous Stasis Ulcers/Wounds with Recent Cellulitis/ Left Ankle Abscess/Bilateral Andrea's Septic Tenosynovitis (currently on day #20 of IV Cefepime and IV Vancomycin of a 28 day course) , and a Coagulopathy (on chronic Lovenox, failed on Eliquis) who presented to [facility] ER todaywith Hematemesis that had its onset this morning. Patient has had nausea and recurrent vomiting that began yesterday and persisted through the day and overnight. This morning he had recurrent vomiting and noticed some blood mixed in with his vomitus. He has also had persistent hiccou ghs today. He did have some generalized abdominal pain with his recurrent vomiting and retching but no abdominal pain otherwise. He continues to have normal bowel movements. Patient does have a history of alcohol abuse, drinking about 4 shots of vodka per day-however, denies any ongoing alcohol use at this time. Patient offers no other complaints. His chronic wounds of his lower extremities and feet have been healing up on his current IV antibiotic regimen. He denies any fevers, chills, headache, stiff neck. He has not had any chest pain, heaviness, tightness, pressure, or discomfort. He denies any shortness of breath. Patient has not had any urinary symptoms. He has not had any melena or hematochezia. No recent diarrhea. Discharge Data Allergies Allergy/AdvReac Type Severity Reaction Status Date / Time doxycycline Allergy Severe Joint Verified 10/29/21 11:53 Pain, Shortness of breath cephalexin Allergy Mild Rash Verified 10/29/21 11:53 Cipro Allergy Mild throat Verified 06/09/18 08:28 swells ciprofloxacin Allergy Mild throat Verified 10/29/21 11:53 swells Consultations 10/29/21 12:31 ED Decision to Admit Stat 10/29/21 15:02 Consult Orthopedic Surgery Routine 10/29/21 16:48 Consult Gastroenterology Routine Ordered Studies 10/29/21 13:31 CT abd pelvis IV con only Urgent CT angio chest PE protocol Urgent 10/31/21 08:03 US gallbladder Routine Hospital Course (1) Hematemesis: Mr. Sharif is a 41 year old male with a complex PMH as in H&P who presented to [facility] ER with hematemesis after persistent n/v for 1 day. Hematemesis - Diet to full liquids per GI - PPI to BID dosing per GI - GI consulted: - Continue clear liquids, small volume as tolerated - Continue antiemetics as needed - Continue analgesia as needed - Continue IV PPI - Can continue thorazine as needed - OP follow up with Dr. Pressley - Tolerating liquids, advance diet as tolerated, and when can tolerate diet can be discharged with outpatient follow-up. - Follow CBC Pancreatic cyst - CT a/p with evidence of enlargement from prior one month ago - Has EUS scheduled as outpatient - GI c/s: - Has a complicated cyst that has concern of hemorrhage within it, will need to discuss if should have endoscopic drainage or not vs surgical referral Osteomyelitis Status post bilateral ankle and foot washouts with antibiotic beads placed during last admission - Continue IV Vancomycin 1250 mg q 24 hours. - Continue IV Cefepime 2000 mg q 12 hours. - He is currently on day #20 of 28 of this regimen. - Ortho consult: - Considering another primary closure versus continue to watch for now and regular dressing changes. - Heel weightbearing only on the right foot for bathroom privileges only. - Daily dressing changes. - Continue IV abx. Portal vein thrombosis - Lovenox on hold due to GI bleeding Coagulopathy - follows with Hematology - Recent extensive hypercoagulable work-up, most test results are not back yet. - Lovenox on hold for now due to GI bleeding. Leukocytosis - WBC count elevated at 33, with neutrophilia - Had persistent leukocytosis during last admission for osteomyelitis as well as on outpatient labs from 1 week ago - Leukocytosis much worse today likely secondary to nausea/vomiting, but also with enlarging pancreatic cyst likely contributing - He is somewhat iron deficient and some of this could be secondary to iron deficiency anemia - Follow CBC - Continue antibiotics for osteomyelitis Alcohol use disorder - Previous history of such, patient currently denies ongoing alcohol use - AWSS ordered - Ativan as needed CODE: FULL Diet: Full liquids per GI DVT ppx: No chemoppx due to GI bleed, advance as tolerated Dispo: Telemetry (2) Pseudocyst, pancreas: (3) Vomiting: (4) Elevated lipase: (5) Osteomyelitis of ankle or foot, left, acute: (6) Leukocytosis: (7) Alcohol use disorder: Discharge Plan Discharge Items Reason For Visit: HEMATEMESIS Condition on Discharge: Fair Follow-up/Referrals: Jaja Cali MD [Primary Care Provider] - Medications and DC Order Prescriptions: No Action (DME) blood pressure test kit-large Kit See Rx Instructions .Route Qty: 1 RF: 0 allopurinol 100 mg tablet 100 mg PO DAILY Qty: 90 RF: 3 thiamine HCl (vitamin B1) [Vitamin B-1] 100 mg Tablet 300 mg PO QAM 30 Days Qty: 90 RF: 0 enoxaparin 100 mg/mL Syringe 100 mg subcut Q12H 30 Days Qty: 60 RF: 0 multivitamin with folic acid [Daily-Lisa (with folic acid)] 400 mcg Tablet 1 tab PO QAM 30 Days Qty: 30 RF: 0 Admission Data Admit Date/Time: 10/29/21 13:30 Attending Provider: Raimundo Villa Admit Provider: aKlli Ramirez Primary Care Provider: Jaja Cali Other Providers: Jose A Ghosh ; Kalli Ramirez ; Devendra Fragoso ; [facility] Healthcare
[2021-11-01 08:35] LABS: Albumin Level 2.3 gm/dl (3.4-5.0); BUN Creatinine Ratio 11.6 (10-20); Bilirubin Direct 1.7 mg/dl (0-0.2); Est GFR (African American) 52.3 ml/min; Est GFR (Non-African American) 45.1 ml/min
[2021-11-01 08:37] LABS: Total Protein 7.7 gm/dl (6.4-8.2)
[2021-11-01] MEDS: THIAMINE HCL 100 MG TAB PO SCH (08:40)
[2021-11-01] MEDS: MULTIVITAMIN TAB PO SCH (08:40)
[2021-11-01] MEDS: allopurinoL 100 MG TAB PO SCH (08:40)
[2021-11-01 08:53] LABS: Bilirubin,Total 2.3 mg/dl (0.2-1)
--- NOTE | 2021-11-01 09:48 | Gastroenterology Progress Note ---
Date of Service November 01, 2021 Assessment & Plan (1) Pancreatitis: Plan: 41 year old male with history of ETOH pancreatitis with pseudocyst, CT this admission showing enlarging cyst, pancreatitis, and secondary duodenitis. He has remained clinically stable, no further evidence of emesis or hematemesis, is tolerating small volume clear liquids and notes resolution of his hiccups. Bump in LFTs overnight. Will discuss with Dr. Pressley again given bump in LFTs regarding EUS/ERCP Continue clear liquids, small volume as tolerated Continue antiemetics as needed Continue analgesia as needed Continue IV PPI Can continue thorazine as needed OP follow up with Dr. Pressley Please see consultation note yesterday for additional recommendations Thank you for allowing us to participate in the care of this patient. Please call with any acute changes, questions or concerns. Please see addendum below with additional recommendation from my supervising physician. Admission and Anticipated Discharge Date Admission Date: October 29, 2021 Supervising Physician Co-Signing Physician Notes Attending attestation I have seen, examined this patient, and agree with the findings and above by our mid-level provider YUNIEL Henning, with the following additions: - Cyst likely causing biliary obstruction now - Plan for EUS/ERCP today with Dr. Pressley Subjective Pt was seen and evaluated, chart reviewed. Had some abd pain this AM after regular diet Resolved with analgesia Denies nausea, vomiting No hiccups Liver tests this AM bumped ABD US 2020: 1. Hypoechoic complex lesion of the pancreatic head with color flow is suspicious for a neoplasm. GI consultation with tissue sampling recommended. 2. Mild dilation of the common bile duct may be secondary to extrinsic mass effect from the pancreatic head lesion. 3. Hepatic steatosis. 4. Findings of acute pancreatitis are better seen on the recent CT study. Review of Systems Review of Systems: All systems reviewed & are unremarkable except as noted in HPI & below Physical Exam Constitutional: WD/WN, vitals as above Respiratory: normal respiratory effort, lungs clear to auscultation Cardiovascular: Rate/Rhythm: regular rate and regular rhythm Gastrointestinal (Abdomen): normal bowel sounds, soft, nontender, no hepatosplenomegaly Skin: no rashes, warm and dry Results & Data ([facility]) Vital Signs (Past 12 Hours) Vital Signs Temp Pulse Resp BP Pulse Ox 11/01/21 07:59 36.7 C 81 20 142/91 H 98 11/01/21 03:31 36.8 C 84 17 144/94 H 98 10/31/21 23:55 37.0 C 93 H 18 132/88 98 (1) Pancreatitis Chronicity: chronic Pancreatitis type: unspecified pancreatitis type Qualified Code(s): K86.1 - Other chronic pancreatitis
--- NOTE | 2021-11-01 12:29 | Anesthesiology Consultation ---
Date of Service November 01, 2021 Assessment & Plan (1) Encounter for pre-operative examination: Chart Review Chart Review: Acceptable Risk for Surgery and Patient NOT seen in Pre Admission Testing Consults Requested none History Surgery Operation Date: 11/01/21 13:30 Proposed Procedures p Endoscopic Ultrasonography Upper - Sachi Pressley MD s Endoscopic Retrograde Cholangiopancreato - Sachi Pressley MD Height/Weight Height: 6 ft 4 in Weight: 88.6 kg Allergies Allergy/AdvReac Type Severity Reaction Status Date / Time doxycycline Allergy Severe Joint Verified 10/29/21 11:53 Pain, Shortness of breath cephalexin Allergy Mild Rash Verified 10/29/21 11:53 Cipro Allergy Mild throat Verified 06/09/18 08:28 swells ciprofloxacin Allergy Mild throat Verified 10/29/21 11:53 swells Medications Home Medications Medication Instructions Recorded Confirmed Last Taken allopurinol 100 mg tablet 100 mg PO DAILY #90 tab 08/26/21 10/29/21 10/29/21 enoxaparin 100 mg/mL subcutaneous 100 mg SUBCUT Q12H 30 Days #60 ml 10/03/21 10/29/21 10/29/21 syringe multivitamin with folic acid 400 1 tab PO QAM 30 Days #30 tab 10/03/21 10/29/21 10/29/21 mcg tablet (Daily-Lisa (with folic acid)) thiamine HCl (vitamin B1) 100 mg 300 mg PO QAM 30 Days #90 tab 10/03/21 10/29/21 10/29/21 tablet (Vitamin B-1) blood pressure test kit-large #1 ea 10/25/21 10/25/21 10/29/21 Active Medications Generic Name Dose Route Start Last Admin Trade Name Freq PRN Reason Stop Dose Admin Acetaminophen 650 mg 10/29/21 16:48 10/31/21 21:03 Acetaminophen 325 Mg Tab PO 11/28/21 16:47 650 mg Q4H PRN Administration Pain or Fever Allopurinol 100 mg 10/30/21 09:00 11/01/21 08:40 Allopurinol 100 Mg Tab PO 11/29/21 08:59 100 mg DAILY CURTIS Administration Chlorpromazine HCl 10 mg 10/30/21 09:10 10/30/21 18:38 Chlorpromazine Hcl 10 Mg Tab PO 11/29/21 09:09 10 mg Q6H PRN Administration Hiccoughs Heparin Sodium (Beef Lung) 5 ml 10/31/21 00:31 10/31/21 15:54 Heparin 10 Unit/Ml 5 Ml Flush FLUSH 11/30/21 00:30 5 ml PRN PRN Administration Flush Pantoprazole Sodium 40 mg/ 100 mls @ 20 mls/hr 10/29/21 17:30 11/01/21 11:51 Dextrose IV 11/28/21 17:29 8 mg/hr Q5H CURTIS 20 mls/hr Administration 8 MG/HR Cefepime HCl 2,000 mg/ Syringe 20 mls @ 5 mls/min 10/29/21 20:00 11/01/21 06:16 IV 12/10/21 19:59 5 mls/min Q8H CURTIS Administration Protocol Vancomycin HCl 1,000 mg/ 270 mls @ 200 mls/hr 10/30/21 22:00 11/01/21 02:16 Sodium Chloride IV 12/10/21 21:59 Infused Q24H CURTIS Infusion Ondansetron HCl 6 mg/ Dextrose 53 mls @ 200 mls/hr 10/30/21 12:00 11/01/21 06:41 IV 11/29/21 11:59 Infused Q6H CURTIS Infusion Morphine Sulfate 2 mg 10/29/21 16:48 11/01/21 08:45 Morphine Sulfate 2 Mg/Ml Carp IV 11/12/21 16:47 2 mg Q30M PRN Administration Chest Pain Multivitamins 1 tab 10/30/21 09:00 11/01/21 08:40 Multivitamin Tab PO 11/29/21 08:59 1 tab QAM CURTIS Administration Thiamine HCl 300 mg 10/30/21 09:00 11/01/21 08:40 Thiamine Hcl 100 Mg Tab PO 11/29/21 08:59 300 mg QAM CURTIS Administration Past Medical History Medical History Acute dehydration Acute kidney injury Anemia Arthritis Chronic kidney disease with symptom management only, stage 4 (severe) Chronic venous insufficiency Deep vein thrombosis 07/2018/CHRONIC- ON ELIQUIS HTN (hypertension) Hypomagnesemia MVP (mitral valve prolapse) 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 ECHO Secondary hyperparathyroidism of renal origin Staphylococcus aureus infection Superficial thrombosis of leg PER RECORDS Tachycardia UTI (urinary tract infection) Venous ulcer RECURRENT VENOUS ULCERATION (REASON FOR PROCEDURE) Vitamin D deficiency Past Family History Family History Mother FHx: lung cancer Hypertension Breast cancer Brother FHx: testicular cancer Hypertension Father Hypertension Unknown Myocardial infarction Past Surgical History Surgical History Hx of biopsy LEFT KIDNEY S/P vascular surgery LLE 2/2 VENOUS INSUFFICIENCY Social History Smoking Status: Never smoker Do You Dip or Chew Tobacco: No Hx Alcohol Use: Yes Alcohol type: hard liquor alcohol intake frequency: 3 or more drinks per day Alcohol Intake Frequency Comment: hasnt had a drink in 2 months Hx Substance Use: No substance use type: does not use Physical Exam Vital Signs Last Vital Signs Temp 98.1 F 11/01/21 12:10 Pulse 85 11/01/21 12:10 Resp 18 11/01/21 12:10 BP 133/89 11/01/21 12:10 Pulse Ox 98 11/01/21 12:10 Testing Laboratory Results 11/01/21 07:31 11/01/21 07:31 PT Cancelled 10/29/21 Unknown INR Cancelled 10/29/21 Unknown APTT Cancelled 10/29/21 Unknown Blood Type A Positive 10/29/21 11:32 Antibody Screen NEGATIVE 10/29/21 11:32 10/29/21 12:34 Aerobic Blood Culture - Preliminary Blood No growth in Aerobic bottle after 48 hours. Anaerobic Blood Culture - Final 10/29/21 12:24 Aerobic Blood Culture - Preliminary Blood No growth in Aerobic bottle after 48 hours. Anaerobic Blood Culture - Preliminary No growth in Anaerobic bottle after 48 hours. Electrocardiogram Findings: + NSR @ (tachy) and + LVH Chest X-Ray Date: 10/29/21 Findings: + NAD
--- NOTE | 2021-11-01 12:56 | Hospitalist Progress Note ---
Date of Service November 01, 2021 Assessment & Plan (1) Hematemesis: Plan: Mr. Sharif is a 41 year old male with a complex PMH as in H&P who presented to [facility] ER with hematemesis after persistent n/v for 1 day. Hematemesis - Diet to full liquids per GI -- made NPO for scope as below - PPI to BID dosing per GI - No further emesis/hematemesis - Follow CBC Pancreatic cyst - CT a/p with evidence of enlargement from prior one month ago - GI c/s: - Cyst likely causing biliary obstruction now - Plan for EUS/ERCP today with Dr. Pressley Osteomyelitis Status post bilateral ankle and foot washouts with antibiotic beads placed during last admission - Continue IV Vancomycin 1250 mg q 24 hours. - Continue IV Cefepime 2000 mg q 12 hours. - He is currently on day #20 of 28 of this regimen. - Ortho consult: - Considering another primary closure versus continue to watch for now and regular dressing changes. - Heel weightbearing only on the right foot for bathroom privileges only. - Daily dressing changes. - Continue IV abx. Portal vein thrombosis - Lovenox on hold due to GI bleeding Coagulopathy - follows with Hematology - Recent extensive hypercoagulable work-up, most test results are not back yet. - Lovenox on hold for now due to GI bleeding. Leukocytosis - downtrending - WBC count elevated at 33, with neutrophilia - Had persistent leukocytosis during last admission for osteomyelitis as well as on outpatient labs from 1 week ago - Possible cyst may be contributing - Follow CBC - Continue antibiotics for osteomyelitis Alcohol use disorder - Previous history of such, patient currently denies ongoing alcohol use - AWSS ordered - Ativan as needed CODE: FULL Diet: Full liquids per GI, advance as tolerated DVT ppx: No chemoppx due to GI bleed Dispo: Telemetry (2) Pseudocyst, pancreas: (3) Vomiting: (4) Elevated lipase: (5) Osteomyelitis of ankle or foot, left, acute: (6) Leukocytosis: (7) Alcohol use disorder: Admission and Anticipated Discharge Date Admission Date: October 29, 2021 Supervising Physician Co-Signing Physician Notes I personally saw and examined the patient. I verified all bailey points and agree with Dr. Crowell with the following exceptions and/or additions: Patient is a 41-year-old male with recent admission for bilateral ankle and foot tenosynovitis and osteomyelitis requiring surgical debridement and long-term IV antibiotics. He presents to the ER today with nausea/vomiting and epigastric moderate abdom inal pain x24 hours with development of some blood intermixed with his vomit. No melena or hematochezia. No real lightheadedness. No chest pains or shortness of breath, no fevers. No history of esophageal varices that are known. He has been taking Lovenox injections for his history of portal vein thrombosis and multiple DVTs . History and ROS reviewed as above. Vitals reviewed Gen: AAOx3, NAD, thin, appears older than given age Laboratory values and radiology studies reviewed 41-year-old male with history of pancreatitis with pseudocyst, osteomyelitis of the feet and ankles on IV antibiotics, alcohol use disorder, CKD stage III, here with hematemesis and abdominal pain, elevated lipase, and enlarging pancreatic pseudocyst as well as possible duodenitis and esophagitis. -Serial CBC -Appreciate GI consultation-Hemoglobin has remained stable. likely esophagitis per GI. -EUS completed today, appears to have images compatible with either necrosis of pancreas or mass. HOwever, history points towards necrosis. -ERCP is unsuccessful due to inflammation around duodenum. Patient will require Interventional radiology services for PTC. -Hold home Lovenox for now given hematemesis which may be secondary to Rianna- Brantley tear versus gastritis or duodenitis or ulcer -Diet advanced to regular. Do not suspect varices causing bleeding at this time as there is no large volume hematemesis and he is hemodynamically stable Added Compazine and Zofran as needed for nausea Subjective Seen at bedside this morning. Patient reports that he had been having some abdominal pain this morning requiring 2 doses of IV morphine. He denies any further emesis but does say that this morning's breakfast sat heavy. As I was d iscussing with him GI CARPENTER came into the room and we discussed his rising LFTs. She mentioned that they would discuss this change as a team and decide whether to take the patient for a scope today. He denies fever, chills, chest pain, palpitations, shortness of breath, vomiting, diarrhea, constipation. Review of Systems Review of Systems: Per subjective Physical Exam Physical Exam: GENERAL: A&Ox3. NAD. HEENT: PERRL, EOMI. Moist mucous membranes. CHEST/LUNGS: CTAB A/P. No crackles, wheezes, rales, rhonchi. HEART: RRR. No m/g/r. ABDOMEN: NT/ND, soft. BS+ x4. NEUROLOGIC: No FND. CN II-XII grossly intact. Results & Data Results & Data ([facility]) Vital Signs (Past 12 Hours) Vital Signs Temp Pulse Pulse Resp BP Pulse Ox 11/01/21 12:10 36.7 C 85 18 133/89 98 11/01/21 08:00 83 11/01/21 07:59 36.7 C 81 20 142/91 H 98 11/01/21 03:31 36.8 C 84 17 144/94 H 98 Resident Activity Tracking Resident Involvement: Resident Care Provided Care Provided: Adult Hospital Medicine (1) Leukocytosis Leukocytosis type: unspecified Qualified Code(s): D72.829 - Elevated white blood cell count, unspecified (2) Hematemesis Nausea presence: with nausea Qualified Code(s): K92.0 - Hematemesis
[2021-11-01] MEDS ORDERED: POTASSIUM CHLORIDE CRTAB 20 MEQ TABCR PO STA (15:19)
[2021-11-01] MEDS ORDERED: INDOMETHACIN 50 MG SUPP PR ONE (15:23)
[2021-11-01] MEDS ORDERED: MIDAZOLAM HCL 1 MG/ML 2ML VIAL ONE (15:27)
[2021-11-01] MEDS ORDERED: fentaNYL citrate 100 MCG/2 ML VIAL ONE (15:27)
--- NOTE | 2021-11-01 15:56 | History & Physical Bridge Note ---
Date of Service November 01, 2021 History & Physical Bridge Note I have examined the patient, reviewed the History & Physical and in the interval since the performance of the History & Physical I have noted the following changes of clinical significance: no changes noted EUS/ERCP today for biliary obstruction due to compression by the peripancreatic fluid collection. Patient was explained in detail regarding risks, benefits, limitations and alternatives of the above endoscopic procedure. Risks of intravenous sedation used for procedure were also explained. Risks include, but not limited to perforation, bleeding, infection, respiratory distress, cardiac arrest and . Patient is also aware about the possibility of missed lesion. Patient's questions were answered. The patient verbalized understanding the information and agreed to undergo the procedure.
[2021-11-01] MEDS ORDERED: ATROPINE SULFATE 0.1 MG/ML 10ML SYR IV PRN (16:06)
[2021-11-01] MEDS ORDERED: ONDANSETRON INJ 2 MG/ML 2 ML VIAL IV PRN (16:06)
[2021-11-01] MEDS ORDERED: fentaNYL citrate 100 MCG/2 ML VIAL IV PRN (16:06)
[2021-11-01] MEDS ORDERED: ePHEDrine sulfate 50 MG/ML AMP IV PRN (16:06)
[2021-11-01] MEDS ORDERED: SUCCINYLCHOLINE CHLORIDE 20 MG/ML 10 ML VIAL IV ONE (16:37)
[2021-11-01] MEDS ORDERED: PHENYLEPHRINE 100MCG/ML 5ML SYR ONE (16:37)
[2021-11-01] MEDS ORDERED: DEXAMETHASONE SOD INJ 4 MG/ML VIAL ONE (16:37)
[2021-11-01] MEDS ORDERED: LARYING-O-JET KIT (LTA) ONE (16:37)
[2021-11-01] MEDS ORDERED: ONDANSETRON INJ 2 MG/ML 2 ML VIAL ONE (16:37)
[2021-11-01] MEDS ORDERED: LIDOCAINE 2% 2 ML VIAL/AMP(20MG/ML) INFIL ONE (16:37)
[2021-11-01] MEDS ORDERED: ROCURONIUM BROMIDE 10 MG/ML 5 ML VIAL IV ONE (16:37)
[2021-11-01] MEDS ORDERED: PROPOFOL IV EMULSION 10 MG/ML 20 ML VIAL IV ONE (16:37)
--- NOTE | 2021-11-01 17:37 | Operative Report ---
Post Operative Report Pre & Post Diagnosis Operation Date: 11/01/21 13:30 Pre-Op Diagnosis: Hematemesis Post-Op Diagnosis: Pancreatitis I identified the patient and participated in the time-out.: Yes Procedure Operation Date: 11/01/21 13:30 Actual Procedures p Endoscopic Ultrasonography Upper(Not Applicable) - Sachi Pressley MD s Endoscopic Retrograde Cholangiopancreatography(Not Applicable) - Sachi Pressley MD Surgeon Sachi Pressley MD Drainage Engineer None Estimated Blood Loss 0 Findings See Below (Duodenitis with severe edema precluding ERCP. Dilated CBD on EUS with likely a WON.) Specimens None Description of Procedure EUS I attest to the content of the Intraoperative Record and any orders documented therein. Any exceptions are noted below.
--- NOTE | 2021-11-01 17:44 | GI REPORT ---
Patient Name: Anthony Sharif Procedure Date: 11/01/2021 4:23 PM Date of : 1980 Admit Type: Inpatient Age: 41 Gender: Male Attending MD: Sachi Pressley MD Procedure: Upper GI endoscopy Providers: Sachi Pressley MD Referring MD: Jaja Cali Md, Raimundo Villa M.d. Indications: Abdominal pain Medicines: General Anesthesia Complications: No immediate complications. Estimated Blood Loss: Estimated blood loss: none. Procedure: Pre-Anesthesia Assessment: - Prior to the procedure, a History and Physical was performed, and patient medications, allergies and sensitivities were reviewed. The patient's tolerance of previous anesthesia was reviewed. - The risks and benefits of the procedure and the sedation options and risks were discussed with the patient. All questions were answered and informed consent was obtained. - Patient identification and proposed procedure were verified prior to the procedure by the physician and the nurse. The procedure was verified in the procedure room. - Pre-procedure physical examination revealed no contraindications to sedation. After obtaining informed consent, the endoscope was passed under direct vision. Throughout the procedure, the patient's blood pressure, pulse, and oxygen saturations were monitored continuously. The Endoscope was introduced through the mouth, and advanced to the second part of duodenum. The upper GI endoscopy was accomplished without difficulty. The patient tolerated the procedure well. Findings: Esophagitis with no bleeding was found in the lower third of the esophagus. The entire examined stomach was normal. Diffuse severe inflammation characterized by congestion (edema), erythema and friability was found in the duodenal bulb and in the second portion of the duodenum. Impression: - Reflux esophagitis. - Normal stomach. - Duodenitis likely due to acute pancreatitis. Recommendation: - Perform an upper endoscopic ultrasound (UEUS) today. - PO PPI BID. - Repeat upper endoscopy in 2 months to check healing. Sachi Pressley MD 11/01/2021 5:43:39 PM This report has been signed electronically. Note Initiated On: 11/01/2021 4:23 PM Number of Addenda: 0 I attest to the content of the Intraoperative Record and orders documented therein, exceptions below {[id number]}
--- NOTE | 2021-11-01 18:01 | GI REPORT ---
Patient Name: Anthony Sharif Procedure Date: 11/01/2021 4:23 PM Date of : 1980 Admit Type: Inpatient Age: 41 Gender: Male Attending MD: Sachi Pressley MD Procedure: Upper EUS Providers: Sachi Pressley MD Referring MD: Jaja Cali Md, Raimundo Villa M.d. Indications: Elevated liver enzymes, Acute pancreatitis Medicines: General Anesthesia Complications: No immediate complications. Estimated Blood Loss: Estimated blood loss: none. Procedure: Pre-Anesthesia Assessment: - Prior to the procedure, a History and Physical was performed, and patient medications, allergies and sensitivities were reviewed. The patient's tolerance of previous anesthesia was reviewed. - The risks and benefits of the procedure and the sedation options and risks were discussed with the patient. All questions were answered and informed consent was obtained. - Patient identification and proposed procedure were verified prior to the procedure by the physician and the nurse. The procedure was verified in the procedure room. - Pre-procedure physical examination revealed no contraindications to sedation. After obtaining informed consent, the endoscope was passed under direct vision. Throughout the procedure, the patient's blood pressure, pulse, and oxygen saturations were monitored continuously. The scope was introduced through the mouth, and advanced to the second part of duodenum. The upper EUS was accomplished without difficulty. The patient tolerated the procedure well. Findings: ENDOSONOGRAPHIC FINDING: : A lesion was identified in the pancreatic head area better visualized from the duodenal bulb. The lesion measured 60 mm in maximal cross-sectional diameter. There was a single compartment The outer wall of the lesion was thick. There was internal debris within the cavity. The lesion had hypoechoic and hyperechoic and some anechoic areas. The appearance seems to be more consistent with a WON but can not exclude malignancy. There is significant inflammation in the duodenum around the lesion. Pancreatic parenchymal abnormalities were noted in the entire pancreas. These consisted of hyperechoic strands and hyperechoic foci. PD measure 3 mm in maximum diameter. There was dilation in the common bile duct which measured up to 12 mm. The distal CBD is not visualized as it is displaced by the pancreatic head lesion. There was no significant IHDD. Extensive hyperechoic material consistent with sludge was visualized endosonographically in the gallbladder. There was abnormal echogenicity in the visualized portion of the liver. This area was hyperechoic. There was no sign of significant endosonographic abnormality in the left adrenal gland. There was no sign of significant endosonographic abnormality involving the celiac trunk. Impression: - A 6 cm lesion seen in the pancreatic head more consistent with a WON in the setting of recent acute pancreatitis and surrounding inflammation but malignancy is not excluded. The lesions is causing biliary obstruction. - There was dilation in the common bile duct which measured up to 12 mm. - Hyperechoic material consistent with sludge was visualized endosonographically in the gallbladder. - There was abnormal echogenicity in the visualized portion of the liver suggestive of fatty infiltration. Recommendation: - Perform an ERCP today. - Repeat the upper endoscopic ultrasound in 4 weeks to evaluate the HOP area once the inflammation improves. Sachi Preslsey MD 11/01/2021 6:00:41 PM This report has been signed electronically. Note Initiated On: 11/01/2021 4:23 PM Number of Addenda: 0 I attest to the content of the Intraoperative Record and orders documented therein, exceptions below {[id number]}
--- NOTE | 2021-11-01 18:09 | GI REPORT ---
Patient Name: Anthony Sharif Procedure Date: 11/01/2021 4:22 PM Date of : 1980 Admit Type: Inpatient Age: 41 Gender: Male Attending MD: Sachi Pressley MD Procedure: ERCP Providers: Sachi Pressley MD Referring MD: Jaja Cali Md, Raimundo Villa M.d. Indications: Jaundice, Elevated liver enzymes, Bile duct obstruction Medicines: General Anesthesia Complications: No immediate complications. Estimated Blood Loss: Estimated blood loss: none. Procedure: Pre-Anesthesia Assessment: - Prior to the procedure, a History and Physical was performed, and patient medications, allergies and sensitivities were reviewed. The patient's tolerance of previous anesthesia was reviewed. - The risks and benefits of the procedure and the sedation options and risks were discussed with the patient. All questions were answered and informed consent was obtained. - Patient identification and proposed procedure were verified prior to the procedure by the physician and the nurse. The procedure was verified in the procedure room. - Pre-procedure physical examination revealed no contraindications to sedation. After obtaining informed consent, the scope was passed under direct vision. Throughout the procedure, the patient's blood pressure, pulse, and oxygen saturations were monitored continuously. The Duodenoscope was introduced through the mouth, and advanced to the duodenum without successful cannulation. The ERCP was accomplished without difficulty. The patient tolerated the procedure well. Findings: The senior risk manager film was normal. The esophagus was successfully intubated under direct vision. The scope was advanced to a normal major papilla in the descending duodenum without detailed examination of the pharynx, larynx and associated structures, and upper GI tract. The major papilla was not found because of severe duodenal inflammation and edema. Impression: - The major papilla was not found because of severe duodenal inflammation and edema secondary to acute pancreatitis. Recommendation: - Transfer patient to a tertiary care hospital for an interventional radiologist to perform PTC and decompress the biliary tree. - Consider repeat ERCP in few weeks once duodenal edema resolves. - Monitor LFTs. Sachi Pressley MD 11/01/2021 6:09:12 PM This report has been signed electronically. Note Initiated On: 11/01/2021 4:22 PM Number of Addenda: 0 I attest to the content of the Intraoperative Record and orders documented therein, exceptions below {[id number]}
--- NOTE | 2021-11-01 18:11 | Gastroenterology Progress Note ---
Date of Service November 01, 2021 Assessment & Plan Admission and Anticipated Discharge Date Admission Date: October 29, 2021 Subjective Patient has severe duodenitis and duodenal wall edema due to acute pancreatitis hence disrupting the usual anatomy and the major papilla could not be found and biliary tree could not be decompressed. He needs transfer to [facility] for IR guided PTC and biliary drainage. I spoke to the hospitalist who will help arrange the transfer. Results & Data ([facility]) Vital Signs (Past 12 Hours) Vital Signs Temp Pulse Pulse Resp BP Pulse Ox 11/01/21 18:05 88 16 123/84 100 11/01/21 17:55 80 16 114/75 100 11/01/21 17:46 36.0 C L 81 16 116/75 100 11/01/21 15:45 36.5 C 81 18 136/97 98 11/01/21 15:00 81 11/01/21 12:10 36.7 C 85 18 133/89 98 11/01/21 08:00 83 11/01/21 07:59 36.7 C 81 20 142/91 H 98
[2021-11-01] MEDS: POTASSIUM CHLORIDE CRTAB 20 MEQ TABCR PO SCH ×2 (18:33→18:40)
--- NOTE | 2021-11-01 18:37 | Anesthesiology Progress Note ---
Date of Service November 01, 2021 Anesthesia Post Procedure Vital Signs Vital Signs: Temp Pulse Pulse Resp BP Pulse Ox 11/01/21 18:13 36.3 C L 83 16 124/82 100 11/01/21 18:05 88 16 123/84 100 11/01/21 17:55 80 16 114/75 100 11/01/21 17:46 36.0 C L 81 16 116/75 100 11/01/21 15:45 36.5 C 81 18 136/97 98 11/01/21 15:00 81 11/01/21 12:10 36.7 C 85 18 133/89 98 11/01/21 08:00 83 11/01/21 07:59 36.7 C 81 20 142/91 H 98 11/01/21 03:31 36.8 C 84 17 144/94 H 98 10/31/21 23:55 37.0 C 93 H 18 132/88 98 10/31/21 19:15 37.4 C 90 18 142/91 H 98 Transfer of Care Handoff Completed per policy Notes Mental Status: alert / awake / arousable and participated in evaluation Patient Amnestic to Procedure: Yes Nausea / Vomiting: adequately controlled Pain: adequately controlled Airway Patency, RR, SpO2: stable & adequate BP & HR: stable & adequate Hydration State: stable & adequate Anesthetic Complications: no major complications apparent
--- NOTE | 2021-11-01 18:39 | Fluoroscopy Report ---
[place] ERCP biliary ductal CLINICAL HISTORY: ERCP IN OR TECHNIQUE: 1 views were obtained with the C-arm in the OR with the above procedure. Total fluoroscopy time was 14.6 seconds. Total skin dose was 3.8 mGy. Comparison: None available at the time of this dictation. FINDINGS/IMPRESSION: Intraoperative images of ERCP were obtained. Please correlate with intraoperative fluoroscopy and operative report. ACT 112: Negative or not required by law. Electronically signed by: Gary Marie M.D. 11/01/2021 6:38 PM
[2021-11-01] MEDS ORDERED: SODIUM CHLORIDE 0.9% 1000ML 1,000 ML IV SCH (18:45)
[2021-11-01] MEDS: POTASSIUM CHLORIDE / WTR 10 MEQ/100 ML PLCT IV SCH ×4 (19:28→22:37)
[2021-11-01] MEDS: VANCOMYCIN HCL 1,000 MG in SODIUM CHLORIDE 0.9% 250 ML IV SCH (21:38)
--- NOTE | 2021-11-01 23:32 | Billing Data ---
Date of Service November 01, 2021 Coding Level of Care Code 31793 Subseq Hosp Care Lvl 3 Time Spent (min) 35
--- NOTE | 2021-11-04 13:58 | Discharge Summary ---
Date of Service November 01, 2021 Admission HPI Per Admitting Provider Mr. Sharif is a 41 year old male with a history of a Pancreatic Mass (Pseudocyst), Portal Venous Thrombosis, Stage IV CKD, Secondary Hyperparathyroidism, MVP with Moderate MR, Pancreatitis, Alcohol Use Disorder, Chronic Venous Insufficiency, Chronic Venous Stasis Ulcers/Wounds with Recent Cellulitis/ Left Ankle Abscess/Bilateral Norfolk's Septic Tenosynovitis (currently on day #20 of IV Cefepime and IV Vancomycin of a 28 day course) , and a Coagulopathy (on chronic Lovenox, failed on Eliquis) who presented to [facility] ER todaywith Hematemesis that had its onset this morning. Patient has had nausea and recurrent vomiting that began yesterday and persisted through the day and overnight. This morning he had recurrent vomiting and noticed some blood mixed in with his vomitus. He has also had persistent hiccoughs today. He did have some generalized abdominal pain with his recurrent vomiting and retching but no abdominal pain otherwise. He continues to have normal bowel movements. Patient does have a history of alcohol abuse, drinking about 4 shots of vodka per day-however, denies any ongoing alcohol use at this time. Patient offers no other complaints. His chronic wounds of his lower extremities and feet have been healing up on his current IV antibiotic regimen. He denies any fevers, chills, headache, stiff neck. He has not had any chest pain, heaviness, tightness, pressure, or discomfort. He denies any shortness of breath. Patient has not had any urinary symptoms. He has not had any melena or hematochezia. No recent diarrhea. Principal Diagnosis Pancreatitis Pancreatic Cyst Biliary tree obstruction Discharge Exam GENERAL: A&Ox3. NAD. HEENT: PERRL, EOMI. Moist mucous membranes. CHEST/LUNGS: CTAB A/P. No crackles, wheezes, rales, rhonchi. HEART: RRR. No m/g/r. ABDOMEN: NT/ND, soft. BS+ x4. NEUROLOGIC: No FND. CN II-XII grossly intact. Discharge Data Allergies Allergy/AdvReac Type Severity Reaction Status Date / Time doxycycline Allergy Severe Joint Verified 10/29/21 11:53 Pain, Shortness of breath cephalexin Allergy Mild Rash Verified 10/29/21 11:53 Cipro Allergy Mild throat Verified 06/09/18 08:28 swells ciprofloxacin Allergy Mild throat Verified 10/29/21 11:53 swells Consultations 10/29/21 12:31 ED Decision to Admit Stat 10/29/21 15:02 Consult Orthopedic Surgery Routine 10/29/21 16:48 Consult Gastroenterology Routine 11/01/21 17:57 Burn CD for patient Stat Procedures Performed Operation Date: 11/01/21 13:30 Actual Procedures p Endoscopic Ultrasonography Upper(Not Applicable) - Sachi Pressley MD s Endoscopic Retrograde Cholangiopancreatography(Not Applicable) - Sachi Pressley MD Ordered Studies 10/29/21 13:31 CT abd pelvis IV con only Urgent CT angio chest PE protocol Urgent 10/31/21 08:03 US gallbladder Routine 11/01/21 [place] ERCP biliary ductal Routine 11/01/21 16:12 US upper EUS PACS images Routine Hospital Course (1) Hematemesis: Mr. Sharif is a 41 year old male with a complex PMH as in H&P who presented to [facility] ER with hematemesis after persistent n/v for 1 day. Pancreatic cyst - CT a/p with evidence of enlargement from prior one month ago - GI c/s: - Cyst likely causing biliary obstruction now - EUS/ERCP 11/[address] Pressley - Severe duodenitis and duodenal wall edema due to acute pancreatitis hence disrupting the usual anatomy and the major papilla could not be found and biliary tree could not be decompressed. - He needs transfer to [facility] for IR guided PTC and biliary drainage. Hematemesis - resolved - Diet to full liquids per GI -- made NPO for scope as below - PPI to BID dosing per GI - No further emesis/hematemesis Osteomyelitis Status post bilateral ankle and foot washouts with antibiotic beads placed during last admission - Continue IV Vancomycin 1250 mg q 24 hours. - Continue IV Cefepime 2000 mg q 12 hours. - He is currently on day #23 of of this regimen. - Ortho consult: - Considering another primary closure versus continue to watch for now and regular dressing changes. - Heel weightbearing only on the right foot for bathroom privileges only. - Daily dressing changes. - Continue IV abx. Portal vein thrombosis - Lovenox on hold due to GI bleeding Coagulopathy -follows with Hematology - Recent extensive hypercoagulable work-up, most test results are not back yet. - Lovenox on hold for now due to GI bleeding. Leukocytosis -downtrending - WBC count elevated at 33, with neutrophilia - Had persistent leukocytosis during last admission for osteomyelitis as well as on outpatient labs from 1 week ago - Possible cyst may be contributing - Follow CBC - Continue antibiotics for osteomyelitis Alcohol use disorder - Previous history of such, patient currently denies ongoing alcohol use - AWSS ordered - Ativan as needed CODE: FULL Diet: NPO DVT ppx: No chemoppx due to GI bleed Dispo: Tramsfer to [facility] (2) Pseudocyst, pancreas: (3) Vomiting: (4) Elevated lipase: (5) Osteomyelitis of ankle or foot, left, acute: (6) Leukocytosis: (7) Alcohol use disorder: Total Time Total Time Spent Total Time Spent (In Minutes): see attending attestation Discharge Plan Discharge Items Patient Disposition: Transfer Acute Care Hospital Reason For Visit: HEMATEMESIS Discharge Diagnosis: Pancreatitis Pancreatic Cyst Biliary tree obstruction Condition on Discharge: Fair Activity: Per Instructions section Non-emergency contact: Primary Care Provider and [employer] Call non-emergency contact if: you have any medication questions, your symptoms worsen, your pain is not controlled and your temperature is above 101.5 Follow-up/Referrals: Jaja Cali MD [Primary Care Provider] - Jose A Ghosh DO [Surgeon] - (Follow up with Dr Ghosh or his PA Noe Villagomez in 1 week for wound check. ) Diet: Heart Healthy Addtl Attending Provider Instructions: Mr. Sharif is a 41 year old male with a complex PMH as in H&P who presented to [facility] ER with hematemesis after persistent n/v for 1 day. Pancreatic cyst - CT a/p with evidence of enlargement from prior one month ago - GI c/s: - Cyst likely causing biliary obstruction now - EUS/ERCP 11/[address] Pressley - Severe duodenitis and duodenal wall edema due to acute pancreatitis hence disrupting the usual anatomy and the major papilla could not be found and biliary tree could not be decompressed. - He needs transfer to [facility] for IR guided PTC and biliary drainage. Hematemesis - Diet to full liquids per GI -- made NPO for scope as below - PPI to BID dosing per GI - No further emesis/hematemesis - Follow CBC Osteomyelitis Status post bilateral ankle and foot washouts with antibiotic beads placed during last admission - Continue IV Vancomycin 1250 mg q 24 hours. - Continue IV Cefepime 2000 mg q 12 hours. - He is currently on day #23 of 28 of this regimen. - Ortho consult: - Considering another primary closure versus continue to watch for now and regular dressing changes. - Heel weightbearing only on the right foot for bathroom privileges only. - Daily dressing changes. - Continue IV abx. Portal vein thrombosis - Lovenox on hold due to GI bleeding Coagulopathy -follows with Hematology - Recent extensive hypercoagulable work-up, most test results are not back yet. - Lovenox on hold for now due to GI bleeding. Leukocytosis -downtrending - WBC count elevated at 33, with neutrophilia - Had persistent leukocytosis during last admission for osteomyelitis as well as on outpatient labs from 1 week ago - Possible cyst may be contributing - Follow CBC - Continue antibiotics for osteomyelitis Alcohol use disorder - Previous history of such, patient currently denies ongoing alcohol use - AWSS ordered - Ativan as needed CODE: FULL Diet: NPO DVT ppx: No chemoppx due to GI bleed Dispo: Tramsfer to [facility] Addtl Business Excellence Leader Provider Instructions: Daily dressing changes as before. Call with any further wound changes to Dr. Ghosh's office [phone] Pending Studies at Discharge: No Stand-Alone Forms: My [email or web address] Skilled Items Patient informed of condition?: Yes DNR: No Discharge Level of Care: Other Communicable Disease: No Discharge Prognosis: Stable Lines: Peripheral IV Urinary Catheter: No Medications and DC Order Prescriptions: Continued (DME) blood pressure test kit-large Kit See Rx Instructions .Route Qty: 1 RF: 0 allopurinol 100 mg tablet 100 mg PO DAILY Qty: 90 RF: 3 Discharge Orders: Discharge Order (Routine); Ordered 11/04/21 Ordered By: Broderick Crowell Admission Data Admit Date/Time: 10/29/21 13:30 Attending Provider: Ankit Huitron Admit Provider: Kalli Ramirez Primary Care Provider: Jaja Cali Other Providers: [facility],Home Healthcare ; Kalli Ramirez ; Jose A Ghosh ; Devendra Fragoso Supervising Physician Co-Signing Physician Notes I personally saw and examined the patient. I verified all bailey points and agree with Dr. Crowell with the following exceptions and/or additions: Patient is a 41-year-old male with recent admission for bilateral ankle and foot tenosynovitis and osteomyelitis requiring surgical debridement and long-term IV antibiotics. He presents to the ER today with nausea/vomiting and epigastric moderate abdominal pain x24 hours with development of some blood intermixed with his vomit. No melena or hematochezia. No real lightheadedness. No chest pains or shortness of breath, no fevers. No history of esophageal varices that are known. He has been taking Lovenox injections for his history of portal vein thrombosis and multiple DVTs . History and ROS reviewed as above. Vitals reviewed Gen: AAOx3, NAD, thin, appears older than given age Laboratory values and radiology studies reviewed 41-year-old male with history of pancreatitis with pseudocyst, osteomyelitis of the feet and ankles on IV antibiotics, alcohol use disorder, CKD stage III, here with hematemesis and abdominal pain, elevated lipase, and enlarging pancreatic pseudocyst as well as possible duodenitis and esophagitis. -Serial CBC -Appreciate GI consultation-Hemoglobin has remained stable. likely esophagitis per GI. -EUS completed today, appears to have images compatible with either necrosis of pancreas or mass. HOwever, history points towards necrosis. -ERCP is unsuccessful due to inflammation around duodenum. Patient will require Interventional radiology services for PTC. Patient was discharged to [facility] overnight. -Hold home Lovenox for now given hematemesis which may be secondary to Rianna- Brantley tear versus gastritis or duodenitis or ulcer -Diet advanced to regular. Do not suspect varices causing bleeding at this time as there is no large volume hematemesis and he is hemodynamically stable Added Compazine and Zofran as needed for nausea Resident Activity Tracking Resident Involvement: Resident Care Provided Care Provided: Adult Hospital Medicine
--- NOTE | 2021-11-04 15:34 | Billing Data ---
Date of Service November 01, 2021 Coding Level of Care Code D/C DAY MANAGEMENT >30 MINS Time Spent (min) 45
== END 2021-11-01 23:30 | disposition short-term general hospital (02) | DRG 438 ==
LOC: ED 09:50 → EDINP 13:30 → SUATTDRO 13:30 → EDINP 15:26 → 2S 10-30 01:29

== ENCOUNTER 2022-12-09 19:30 | Observation (INO) ==
[2022-12-09 21:44] LABS: Basophils # (auto) 0.08 K/uL (0-0.2); Basophils % (auto) 0.7 %; Eosinophils # (auto) 1.46 K/uL (0-0.50); Eosinophils % (auto) 13.2 %; Hematocrit (blood only) 37.4 % (42.0-52.0); Hemoglobin 12.7 g/dl (14.0-18.0); Immature Granulocytes # (auto) 0.03 K/uL (0.01-0.20); Immature Granulocytes % (auto) 0.3 %; Lymphocytes # (auto) 1.75 K/uL (1.2-3.4); Lymphocytes % (auto) 15.8 %; Mean Platelet Volume 9.3 fL (9.4-12.4); Monocytes # (auto) 0.86 K/uL (0.11-0.59); Monocytes % (auto) 7.8 %; Neutrophils % (auto) 62.2 %; Platelet Count 270 K/uL (130-400); RDW Standard Deviation 43.8 fL (36.4-46.3); Red Blood Count 3.74 M/uL (4.70-6.10); White Blood Count 11.08 K/ul (4.8-10.8)
[2022-12-09 21:52] LABS: Albumin Globulin Ratio 1.2 (0.9-2); Albumin Level 3.8 gm/dl (3.4-5.0); BUN Creatinine Ratio 12.9 (10-20); Creatinine Clr Calc Pharmacy 45.4 ml/min; Est GFR (African American) 34.1 ml/min; Est GFR (Non-African American) 29.4 ml/min; Globulin 3.3 gm/dl (2.5-4.0); Potassium 3.5 mmol/L (3.5-5.1); Total Protein 7.1 gm/dl (6.0-8.3)
[2022-12-09] MEDS ORDERED: PANTOprazole 40 MG in SYRINGE 0 ML IV ONE (22:23)
[2022-12-09] MEDS ORDERED: ONDANSETRON INJ 2 MG/ML 2 ML VIAL IV STA (22:23)
[2022-12-09] MEDS ORDERED: SODIUM CHLORIDE 0.9% 1000ML 1,000 ML IV SCH (22:30)
--- NOTE | 2022-12-09 22:31 | Emergency Department Note ---
History of Present Illness General Chief complaint: Rib Injury/Pain Stated complaint: SHARP STABBING PAIN UNDER RIBBS Time Seen by Provider: 12/09/22 22:19 History of Present Illness Maximum Pain Intensity: 8 This is a 42-year-old male presenting to the emergency department for evaluation of epigastric abdominal pain that is radiating into his left upper quadrant. The patient states that he may have had some viral or flulike symptoms about 2 weeks ago from someone at work. He has had some nausea throughout the past 2 weeks but no significant fever, chills, pain, or difficulty using the bathroom. Patient states he has had pancreatitis in the past and this feels somewhat similar. The patient has not been able to eat or drink much for the past 3 to 4 days because of his nausea. He rates his discomfort an 8/10. He has not been able to take anything [id number] for symptoms. Home Medications Medication Instructions Recorded Confirmed Type pantoprazole 40 mg tablet,delayed 40 mg PO DAILY #90 tabs 04/22/22 12/10/22 Rx release calcitriol 0.25 mcg capsule 0.25 mcg PO 3XWK 07/15/22 12/10/22 History rivaroxaban 20 mg tablet (Xarelto) 20 mg PO QPM 08/01/22 12/10/22 History allopurinol 100 mg tablet 100 mg PO DAILY #90 tabs 09/09/22 12/10/22 Rx lisinopril 20 mg tablet 40 mg PO DAILY 90 days #180 tabs 11/25/22 12/10/22 Rx Allergies Allergy/AdvReac Type Severity Reaction Status Date / Time cephalexin Allergy Mild Rash Verified 12/10/22 01:23 Past Med/Surg History Medical History (Updated 12/10/22 @ 20:52 by Abdulkadir Kasper PA-C) Anemia Chronic kidney disease with symptom management only, stage 4 (severe) Chronic venous insufficiency Coagulopathy Deep vein thrombosis 07/2018/CHRONIC- ON Xarelto Esophagitis Hypertension MVP (mitral valve prolapse) 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 ECHO Pancreatitis Portal vein thrombosis Secondary hyperparathyroidism of renal origin Traumatic open wound of left lower leg Vitamin D deficiency Surgical History Hx of biopsy LEFT KIDNEY S/P vascular surgery LLE 2/2 VENOUS INSUFFICIENCY Family History Mother FHx: lung cancer Hypertension Breast cancer Brother FHx: testicular cancer Hypertension Father Hypertension Unknown Myocardial infarction Social History Smoking Status: Never smoker Second Hand Exposure: No; Do You Dip or Chew Tobacco: No; Tobacco Cessation Education Requested by Patient: No Hx Alcohol Use: No Hx Substance Use: No Preferred Language: Romanian Communication Ability: Effective Visual Impairment: No Limitations Gear Nicker Required: No Beliefs That Will Affect Care: None marital status: Single Current Living Situation: Significant Other Current Living Situation Comment: [facility] [employer] KIDS current occupational status: unemployed How many Children do You have: 4 Other Information That Helps Us Care for You: No Feels Safe at Home: Yes Safety Concerns: Feels Safe At This Time Diet Comment: low fat during the past year weight has: decreased > 10 lbs Assistive Devices: None Review of Systems A total of 10 systems reviewed and were otherwise negative Physical Exam Vital Signs Vital Signs - 24 hr 12/10/22 00:00 Pulse Rate [Apical] 87 Respiratory Rate 16 Blood Pressure [Right Arm] 130/73 Blood Pressure Mean [Right Arm] 92 Pulse Oximetry 98 Oxygen Delivery Method Room Air VITALS: Vitals are noted on the nurse's note and reviewed by myself. Vital signs stable. GENERAL: Well-developed, well-nourished, white male, who is in no acute distress and resting comfortably. Patient is cooperative with the examination. HEAD: Normocephalic atraumatic. NECK: Supple without nuchal rigidity. No lymphadenopathy. No thyromegaly. Cervical spine is nontender. HEART: Regular rate and rhythm without murmurs gallops or rubs. LUNGS: Clear to auscultation bilaterally without wheezes, rales or rhonchi. No retractions or accessory muscle use. ABDOMEN: Positive normal bowel sounds x 4. Soft, nontender, without masses or organomegaly. No guarding or rebound tenderness. MUSCULOSKELETAL: No muscle atrophy, erythema, or edema noted. Full range of motion in all extremities. Course Administered Medications Hydrocodone Bitart/Acetaminophen (Hydrocodone/Acetamophen 5/325mg Tab) 1 tab PO Q4H PRN PRN Reason: Moderate Pain Stop: 12/24/22 01:48 Last Admin: 12/10/22 15:33 Dose: 1 tab Documented By: Admin: 12/10/22 04:53 Dose: 1 tab Documented By: LAKISHA Allopurinol (Allopurinol 100 Mg Tab) 100 mg PO DAILY [facility] Stop: 01/09/23 08:59 Last Admin: 12/10/22 08:30 Dose: 100 mg Documented By: THAD Lactated Ringer's (Lr) 1,000 mls @ 150 mls/hr IV .Q6H40M [facility] Stop: 01/09/23 10:59 Last Admin: 12/10/22 17:28 Dose: 150 mls/hr Documented By: Infusion: 12/10/22 17:28 Dose: 0 mls/hr Documented By: Admin: 12/10/22 11:08 Dose: 150 mls/hr Documented By: THAD Ondansetron HCl (Ondansetron Inj 2 Mg/Ml 2 Ml Vial) 4 mg IV Q6H PRN PRN Reason: Nausea Stop: 01/09/23 04:02 Last Admin: 12/10/22 07:24 Dose: 4 mg Documented By: THAD Pantoprazole Sodium (Pantoprazole 40 Mg Tab) 40 mg PO DAILY [facility] Stop: 01/09/23 08:59 Last Admin: 12/10/22 08:30 Dose: 40 mg Documented By: THAD Rivaroxaban (Rivaroxaban 20 Mg Tab) 20 mg PO QDD [facility] Stop: 01/09/23 16:29 Last Admin: 12/10/22 16:17 Dose: 20 mg Documented By: THAD Discontinued Medications Sodium Chloride (Nss 1000ml) 1,000 mls @ 999 mls/hr IV .Q1H1M CURTIS Stop: 12/09/22 23:30 Last Infusion: 12/10/22 00:31 Dose: 0 mls/hr Documented By: Admin: 12/09/22 22:59 Dose: 999 mls/hr Documented By: ISELA Pantoprazole Sodium 40 mg/ (Syringe) 10 mls @ 5 mls/min IV NOW ONE Stop: 12/09/22 22:24 Last Admin: 12/10/22 00:01 Dose: 5 mls/min Documented By: LILLIAN Sodium Chloride (Nss 1000ml) 1,000 mls @ 150 mls/hr IV .Q6H40M [facility]TIS Stop: 01/09/23 04:02 Last Admin: 12/10/22 11:02 Dose: Not Given Documented By: Infusion: 12/10/22 11:02 Dose: 0 mls/hr Documented By: Admin: 12/10/22 04:45 Dose: 150 mls/hr Documented By: LAKISHA Morphine Sulfate (Morphine Sulfate 4 Mg/Ml 1 Ml Carp\Vial) 4 mg IV Q30M PRN PRN Reason: Pain Stop: 12/24/22 00:16 Last Admin: 12/10/22 00:25 Dose: 4 mg Documented By: LILLIAN Ondansetron HCl (Ondansetron Inj 2 Mg/Ml 2 Ml Vial) 4 mg IV NOW STA Stop: 12/09/22 22:24 Last Admin: 12/09/22 22:57 Dose: 4 mg Documented By: ISELA Ondansetron HCl (Ondansetron Inj 2 Mg/Ml 2 Ml Vial) 4 mg IV NOW STA Stop: 12/10/22 00:18 Last Admin: 12/10/22 00:26 Dose: 4 mg Documented By: LILLIAN Medical Decision Making Differential Diagnosis Differential diagnosis: Etiologies such as biliary colic, cholecystitis, hepatitis, pancreatitis, cardiac disease, pancreatitis, gastritis, peptic ulcer disease, appendicitis, cystitis, diverticulitis, mesenteric ischemia, inflammatory bowel disease, ileus, bowel obstruction, testicular/adnexal torsion, aortic pathology, shingles, as well as others were considered Laboratory Data 12/09/22 20:06 12/09/22 20:06 Lab Results 12/09/22 12/09/22 12/09/22 Range/Units 20:06 20:06 22:35 WBC 11.08 H (4.8-10.8) K/ul RBC 3.74 L (4.70-6.10) M/uL Hgb 12.7 L (14.0-18.0) g/dl Hct 37.4 L (42.0-52.0) % MCV 100.0 (80.0-100.0) fL MCH 34.0 (25.0-34.0) pg MCHC 34.0 (32.0-36.0) g/dL RDW Std Deviation 43.8 (36.4-46.3) fL RDW Coeff of Machelle 12.0 (11.5-14.5) % Plt Count 270 (130-400) K/uL MPV 9.3 L (9.4-12.4) fL Immature Gran % (Auto) 0.3 % Neut % (Auto) 62.2 % Lymph % (Auto) 15.8 % [place] % (Auto) 7.8 % Eos % (Auto) 13.2 % Baso % (Auto) 0.7 % Neut # (Auto) 6.90 H (1.40-6.50) K/uL Lymph # (Auto) 1.75 (1.2-3.4) K/uL [place] # (Auto) 0.86 H (0.11-0.59) K/uL Eos # (Auto) 1.46 H (0-0.50) K/uL Baso # (Auto) 0.08 (0-0.2) K/uL Immature Gran # (Auto) 0.03 (0.01-0.20) K/uL Sodium 141 (136-145) mmol/L Potassium 3.5 (3.5-5.1) mmol/L Chloride 106 (98-107) mmol/L Carbon Dioxide 26 (21-32) mmol/L Anion Gap 9 (3-11) BUN 33 H (6-23) mg/dl Creatinine 2.55 H (0.6-1.4) mg/dl Est Cr Clr Drug Dosing 45.4 ml/min Est GFR ( Amer) 34.1 ml/min Est GFR (Non-Af Amer) 29.4 ml/min BUN/Creatinine Ratio 12.9 (10-20) Glucose 90 (70-99(Fasting)) mg/dl Calcium 9.0 (8.5-10.1) mg/dl Total Bilirubin 1.0 (0.2-1.0) mg/dl AST 13 (13-39) U/L ALT 13 (7-52) U/L Alkaline Phosphatase 86 (34-104) U/L Troponin I High Sens (0-20) pg/ml Total Protein 7.1 (6.0-8.3) gm/dl Albumin 3.8 (3.4-5.0) gm/dl Globulin 3.3 (2.5-4.0) gm/dl Albumin/Globulin Ratio 1.2 (0.9-2) Amylase 76 (25-115) U/L Lipase 115 H (11-82) U/L Ethyl Alcohol mg/dL < 10.0 (<10.0) mg/dl SARS-CoV-2, RNA, NAAT (NEGATIVE) 12/09/22 12/10/22 Range/Units 22:35 00:30 WBC (4.8-10.8) K/ul RBC (4.70-6.10) M/uL Hgb (14.0-18.0) g/dl Hct (42.0-52.0) % MCV (80.0-100.0) fL MCH (25.0-34.0) pg MCHC (32.0-36.0) g/dL RDW Std Deviation (36.4-46.3) fL RDW Coeff of Machelle (11.5-14.5) % Plt Count (130-400) K/uL MPV (9.4-12.4) fL Immature Gran % (Auto) % Neut % (Auto) % Lymph % (Auto) % [place] % (Auto) % Eos % (Auto) % Baso % (Auto) % Neut # (Auto) (1.40-6.50) K/uL Lymph # (Auto) (1.2-3.4) K/uL [place] # (Auto) (0.11-0.59) K/uL Eos # (Auto) (0-0.50) K/uL Baso # (Auto) (0-0.2) K/uL Immature Gran # (Auto) (0.01-0.20) K/uL Sodium (136-145) mmol/L Potassium (3.5-5.1) mmol/L Chloride (98-107) mmol/L Carbon Dioxide (21-32) mmol/L Anion Gap (3-11) BUN (6-23) mg/dl Creatinine (0.6-1.4) mg/dl Est Cr Clr Drug Dosing ml/min Est GFR ( Amer) ml/min Est GFR (Non-Af Amer) ml/min BUN/Creatinine Ratio (10-20) Glucose (70-99(Fasting)) mg/dl Calcium (8.5-10.1) mg/dl Total Bilirubin (0.2-1.0) mg/dl AST (13-39) U/L ALT (7-52) U/L Alkaline Phosphatase (34-104) U/L Troponin I High Sens 12.1 (0-20) pg/ml Total Protein (6.0-8.3) gm/dl Albumin (3.4-5.0) gm/dl Globulin (2.5-4.0) gm/dl Albumin/Globulin Ratio (0.9-2) Amylase (25-115) U/L Lipase (11-82) U/L Ethyl Alcohol mg/dL (<10.0) mg/dl SARS-CoV-2, RNA, NAAT NEGATIVE (NEGATIVE) Imaging Data Radiologist's Impression: Abdomen/Pelvis CT 12/09/22 22:23 CT abd pelvis wo con CLINICAL HISTORY: abd pain, n/v, darleen TECHNIQUE: Helical axial images of the abdomen and pelvis were obtained. Automated dose lowering techniques and/or adjustment according to patient size were utilized for this exam. This exam was performed without intravenous contrast. CT DOSE: 1170.82 mGy.cm COMPARISON: None available at the time of this dictation. FINDINGS: Lower chest: No acute abnormality. Liver: Unremarkable. No focal lesions are seen. Gallbladder and biliary tree: No calcified gallstones. Normal caliber wall. No intra- or extrahepatic biliary ductal dilation. Pancreas: Interval decrease in size of pancreatic head mass compatible with walled off necrosis. Peripancreatic fat stranding and nodularity is likely reactive. Spleen: Unremarkable. Adrenals: Unremarkable. Kidneys and ureters: Unremarkable. Bladder: Unremarkable. Reproductive organs: Unremarkable. Bowel: Thickening of the transverse colonic wall is likely secondary to peripancreatic inflammation. Lymph nodes Retroperitoneal: Subcentimeter lymph nodes are noted. Pelvic: Unremarkable. Mesenteric: Subcentimeter lymph nodes are noted. Peritoneum: Peritoneal stranding and nodularity most prominent in the upper abdomen compatible with pancreatitis. A small amount of ascites and pelvic fluid is seen. Overall the degree of inflammation is increased from prior exam. Vessels: Atherosclerotic calcifications are seen. Abdominal wall: A fat-containing umbilical hernia is seen. Bones: Unremarkable. IMPRESSION: 1. Interval progression of inflammatory changes around the pancreas with likely secondary inflammation of the transverse colon. 2. Walled off necrosis in the pancreatic head has decreased in size from prior exam. 3. Portal vein thrombus was not evaluated secondary to noncontrast technique. 4. Additional findings as above. ACT 112: Negative or not required by law. Electronically signed by: Gary Marie M.D. 12/10/2022 8:50 AM MDM Narrative Physical exam and history were performed. Nursing notes, EMR, and Medication List were personally reviewed. No social concerns were identified as barriers to patients care. Patient appears to have upper abdominal pain bringing him to the ER. There is a past history of pancreatitis. He is with some reproducible discomfort. He does not appear toxic. IV access was established and labs were obtained. Patient was hydrated medicated as above. He was sent to CT scan for imaging of his belly. Patient's blood work is as above and was reviewed. He does not have a significantly elevated white blood cell count, gross anemia, bandemia, or significant electrolyte imbalance. Creatinine is slightly elevated at 2.55.. Transaminases are not diagnostic. Amylase and lipase are normal. CT scan was reviewed by myself and radiology, and does suggest acute pancreatitis. The patient did require additional pain medication to get comfortable. Case was discussed with the on-call outreach and education social worker as well as the on-call hospitalist. The patient does seem unwell to go home. Please see the hospitalist dictation for further patient course, plan, and disposition. The chart was completed utilizing [employer] Speech Voice Recognition Software. Grammatical errors, random word insertions, pronoun errors, and incomplete sentences are an occasional consequence of this system due to software limitations, ambient noise, and hardware issues. Any formal questions or concerns about the content, text, or information contained within the body of this dictation should be directly addressed to the provider for clarification. . Impression & Plan Pancreatitis, Acute upper abdominal pain Discharge Plan Visit Data Chief Complaint: Rib Injury/Pain Stated Complaint: SHARP STABBING PAIN UNDER RIBBS ED Provider: Noah West ED Midlevel Provider: Abdulkadir Kasper Discharge Problem: Pancreatitis, Acute upper abdominal pain Patient Disposition: Admitted As Inpatient Discharge Instructions Interventions: ED Discharge Assessment Last Done: 12/10/22 01:51
[2022-12-10] MEDS ORDERED: ONDANSETRON INJ 2 MG/ML 2 ML VIAL IV STA (00:17)
[2022-12-10] MEDS ORDERED: MoRPHine SULFATE 4 MG/ML 1 ML CARP\\VIAL IV PRN ×2 (00:17→01:49)
--- NOTE | 2022-12-10 01:36 | History & Physical Report ---
Date of Service December 10, 2022 Assessment & Plan (1) Pancreatitis: (2) Traumatic open wound of left lower leg: (3) Hypertension: (4) MVP (mitral valve prolapse): (5) Vitamin D deficiency: (6) Venous stasis ulcer of left lower leg with edema of left lower leg: (7) Chronic venous insufficiency: (8) Chronic kidney disease with symptom management only, stage 4 (severe): (9) Gout: (10) Esophagitis: (11) Deep vein thrombosis: Plan Severe abdominal pain-history of pancreatitis and esophagitis Acute pancreatitis- 4.8 x 3.2 cm cystic pancreatic lesion within the pancreatic head has decreased in size where previously was measured at 6.0 x 5.6 cm and is consistent with walled off necrosis, previously referred to as a pseudocyst, with resolution of previous hemorrhage. Increased peripancreatic inflammation consistent with acute interstitial pancreatitis. there is increased focal inflammation within the omentum surrounding and most probably inferior to the transverse colon which is also favored to be an acute pancreatic fluid collection tracking from the walled off collection. On-call GI was notified by the ED, and felt that the patient could be admitted to [facility] for further evaluation and treatment Consult GI Dr. Tanner GERD/esophagitis/hiatal hernia- Continue pantoprazole 40 mg p.o. daily Patient will be placed on a full liquid diet for now Chronic left lower extremity venous ulcer/history left lower extremity DVT- following regularly with wound care continue Xarelto CKD stage IV- creatinine 2.55, with range 1.52-2.91 hold lisinopril for now hydralazine 10 mg IV every 4 hours as needed systolic blood pressure greater than 160 History of Present Illness Chief Complaint: The patient presents to the emergency department with complaint of severe epigastric abdominal pain directly below his sternum, and reports intermittent nausea over the past few weeks Primary Care Provider: Jaja Cali MD The patient is a 42-year-old male with a past medical history including slow healing traumatic open wound of left lower leg, left lower extremity DVT on chronic anticoagulation with Xarelto, bilateral knee osteoarthritis, hypertension, mitral valve prolapse, pancreatitis, anemia, vitamin D deficiency, CKD stage IV, secondary hyperparathyroidism of renal origin, chronic venous insu fficiency. He presents to the emergency department with complaint of worsening epigastric pain accompanied by nausea over the past few weeks, without vomiting, with symptoms similar to previous episode of pancreatitis Allergies Allergy/AdvReac Type Severity Reaction Status Date / Time cephalexin Allergy Mild Rash Verified 12/10/22 01:23 Home Medications Medication Instructions Recorded Confirmed Type pantoprazole 40 mg tablet,delayed 40 mg PO DAILY #90 tabs 04/22/22 12/10/22 Rx release calcitriol 0.25 mcg capsule 0.25 mcg PO 3XWK 07/15/22 12/10/22 History rivaroxaban 20 mg tablet (Xarelto) 20 mg PO QPM 08/01/22 12/10/22 History allopurinol 100 mg tablet 100 mg PO DAILY #90 tabs 09/09/22 12/10/22 Rx lisinopril 20 mg tablet 40 mg PO DAILY 90 days #180 tabs 11/25/22 12/10/22 Rx Past Med/Surg History Medical History (Updated 12/10/22 @ 05:15 by Robson Reyez MD) Anemia Chronic kidney disease with symptom management only, stage 4 (severe) Chronic venous insufficiency Coagulopathy Deep vein thrombosis 07/2018/CHRONIC- ON Xarelto Esophagitis Hypertension MVP (mitral valve prolapse) 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 ECHO Pancreatitis Portal vein thrombosis Secondary hyperparathyroidism of renal origin Traumatic open wound of left lower leg Vitamin D deficiency Surgical History Hx of biopsy LEFT KIDNEY S/P vascular surgery LLE 2/2 VENOUS INSUFFICIENCY Family History Mother FHx: lung cancer Hypertension Breast cancer Brother FHx: testicular cancer Hypertension Father Hypertension Unknown Myocardial infarction Social History Smoking Status: Never smoker Second Hand Exposure: No; Hx Alcohol Use: No Hx Substance Use: No Preferred Language: Faroese Communication Ability: Effective Visual Impairment: No Limitations Stenotype Operator Required: No Beliefs That Will Affect Care: None marital status: Single Current Living Situation: Significant Other Current Living Situation Comment: [employer] KIDS current occupational status: unemployed How many Children do You have: 4 Feels Safe at Home: Yes Diet Comment: low fat during the past year weight has: decreased > 10 lbs Assistive Devices: Walker Review of Systems Review of Systems: The patient denies chest pain, palpitations, shortness of breath, dyspnea on exertion, cough, sore throat, fevers, chills, sweats, vomiting, diarrhea, constipation, pelvic pain, blood in urine or stool, dysuria, urinary frequency or urgency, lightheadedness, dizziness, headache, memory loss, loss of consciousness, rash, abnormal bruising or bleeding, imbalance, focal or generalized weakness, numbness or tingling in arms or legs, generalized arthralgias or myalgias, neck pain, or night sweats. The review of systems is otherwise negative other than for that already noted above, and at least 10 systems have been reviewed. Physical Exam Physical Exam: The patient is awake, alert and oriented 3, well developed and well nourished, normocephalic and atraumatic, lying in bed and in no acute distress. HEENT--PERRL, EOMI, mucous membranes and oropharynx mildly dry. Neck--supple. No JVD. No bruits. Thyroid normal, trachea midline, no adenopathy. Heart--normal S1 and S2. No murmurs, rubs or gallops. Lungs--clear bilaterally, no respiratory distress, no accessory muscle use. Abdomen--normal bowel sounds and soft. Severely tender epigastric area to light touch. Nondistended, no hernias or masses, no organomegaly. Extremities--no cyanosis or clubbing. No edema. Dermatologic--normal skin turgor, normal color, no abnormal lymph nodes, no rash. Neurologic--cranial nerves II through XII grossly intact. Rheumatologic--normal range of motion. Psychiatric--normal affect. Results & Data Results & Data ([facility] [place]) Vital Signs (Past 12 Hours) Vital Signs Temp Pulse Pulse Resp BP BP Pulse Ox 12/10/22 00:00 87 16 130/73 98 12/09/22 19:33 36.2 C L 104 H 18 113/75 99 O2 Del Method 12/10/22 00:00 Room Air 12/09/22 19:33 Room Air Laboratory Results Laboratory Results WBC 11.08 K/ul (4.8-10.8) H 12/09/22 20:06 RBC 3.74 M/uL (4.70-6.10) L 12/09/22 20:06 Hgb 12.7 g/dl (14.0-18.0) L 12/09/22 20: Hct 37.4 % (42.0-52.0) L 12/09/22 20: MCV 100.0 fL (80.0-100.0) 12/09/22 20: MCH 34.0 pg (25.0-34.0) 12/09/22 20: MCHC 34.0 g/dL (32.0-36.0) 12/09/22 20: RDW Std Deviation 43.8 fL (36.4-46.3) 12/09/22 20: RDW Coeff of Machelle 12.0 % (11.5-14.5) 12/09/22: Plt Count 270 K/uL (130-400) 12/09/22 20: MPV 9.3 fL (9.4-12.4) L 12/09/22 20: Immature Gran % (Auto) 0.3 % 12/09/22: Neut % (Auto) 62.2 % 12/09/22 20: Lymph % (Auto) 15.8 % 12/09/22 20: [place] % (Auto) 7.8 % 12/09/22 20: Eos % (Auto) 13.2 % 12/09/22 20: Baso % (Auto) 0.7 % 12/09/22 20: Neut # (Auto) 6.90 K/uL (1.40-6.50) H 12/09/22 20: Lymph # (Auto) 1.75 K/uL (1.2-3.4) 12/09/22 20: [place] # (Auto) 0.86 K/uL (0.11-0.59) H 12/09/22 20: Eos # (Auto) 1.46 K/uL (0-0.50) H 12/09/22 20: Baso # (Auto) 0.08 K/uL (0-0.2) 12/09/22 20: Immature Gran # (Auto) 0.03 K/uL (0.01-0.20) 12/09/22 20: Sodium 141 mmol/L (136-145) 12/09/22 20:06 Potassium 3.5 mmol/L (3.5-5.1) 12/09/22 20:06 Chloride 106 mmol/L (98-107) 12/09/22 20:06 Carbon Dioxide 26 mmol/L (21-32) 12/09/22 20:06 Anion Gap 9 (3-11) 12/09/22 20:06 BUN 33 mg/dl (6-23) H 12/09/22 20:06 Creatinine 2.55 mg/dl (0.6-1.4) H 12/09/22 20:06 Est Cr Clr Drug Dosing 45.4 ml/min 12/09/22 20:06 Est GFR ( Amer) 34.1 ml/min 12/09/22 20:06 Est GFR (Non-Af Amer) 29.4 ml/min 12/09/22 20:06 BUN/Creatinine Ratio 12.9 (10-20) 12/09/22 20:06 Glucose 90 mg/dl (70-99(Fasting)) 12/09/22 20:06 Calcium 9.0 mg/dl (8.5-10.1) 12/09/22 20:06 Total Bilirubin 1.0 mg/dl (0.2-1.0) 12/09/22 20:06 AST 13 U/L (13-39) 12/09/22 20:06 ALT 13 U/L (7-52) 12/09/22 20:06 Alkaline Phosphatase 86 U/L (34-104) 12/09/22 20:06 Troponin I High Sens 12.1 pg/ml (0-20) 12/09/22 22:35 Total Protein 7.1 gm/dl (6.0-8.3) 12/09/22 20:06 Albumin 3.8 gm/dl (3.4-5.0) 12/09/22 20:06 Globulin 3.3 gm/dl (2.5-4.0) 12/09/22 20:06 Albumin/Globulin Ratio 1.2 (0.9-2) 12/09/22 20:06 Amylase 76 U/L (25-115) 12/09/22 20:06 Lipase 115 U/L (11-82) H 12/09/22 20:06 Ethyl Alcohol mg/dL < 10.0 mg/dl (<10.0) 12/09/22 22:35 SARS-CoV-2, RNA, NAAT NEGATIVE (NEGATIVE) 12/10/22 00:30 Code Status & VTE Plan Code Status Full code VTE Prophylaxis Plan VTE Prophylaxis will be ordered: Yes PG Care Time/CCT Total # of Minutes Spent Total Time Spent with Patient: Total time spent is greater than 50% in coordination of care (as documented) at patient's floor/unit and/or counseling patient: Coding Level of Care Code 65249 INT INP/OBS CARE 3/75MIN Diagnoses Pancreatitis K86.1 Chronicity: chronic Pancreatitis type: unspecified pancreatitis type Traumatic open wound of left lower leg S81.802A Encounter type: initial encounter Hypertension I10 Hypertension type: unspecified MVP (mitral valve prolapse) I34.1 Vitamin D deficiency E55.9 Venous stasis ulcer of left lower leg with edema of left lower leg I83.029; I83.892; L97.929; R60.9 Chronic venous insufficiency I87.2 Chronic kidney disease with symptom management only, stage 4 (severe) N18.4 Gout M10.9 Chronicity: acute Gout etiology: unspecified cause Gout site: toe Laterality: left Esophagitis K20.90 Deep vein thrombosis I82.409 (1) Pancreatitis Chronicity: chronic Pancreatitis type: unspecified pancreatitis type Qualified Code(s): K86.1 - Other chronic pancreatitis (2) Traumatic open wound of left lower leg Encounter type: initial encounter Qualified Code(s): S81.802A - Unspecified open wound, left lower leg, initial encounter (3) Hypertension Hypertension type: unspecified Qualified Code(s): I10 - Essential (primary) hypertension (9) Gout Chronicity: acute Gout etiology: unspecified cause Gout site: toe Laterality: left Qualified Code(s): M10.9 - Gout, unspecified
[2022-12-10] MEDS ORDERED: ACETAMINOPHEN 325 MG TAB PO PRN (04:03)
[2022-12-10] MEDS ORDERED: ONDANSETRON INJ 2 MG/ML 2 ML VIAL IV PRN (04:03)
[2022-12-10] MEDS: SODIUM CHLORIDE 0.9% 1000ML 1,000 ML IV SCH ×2 (04:45→11:02)
[2022-12-10] MEDS: HYDROCODONE/ACETAMOPHEN 5/325MG TAB PO PRN ×2 (04:53→15:33)
[2022-12-10] MEDS ORDERED: hydrALAZINE HCL 20 MG/ML VIAL IV PRN (05:24)
[2022-12-10] MEDS: PANTOprazole 40 MG TAB PO SCH (08:30)
[2022-12-10] MEDS: allopurinoL 100 MG TAB PO SCH (08:30)
--- NOTE | 2022-12-10 08:52 | CT Scan Report ---
CT abd pelvis wo con CLINICAL HISTORY: abd pain, n/v, darleen TECHNIQUE: Helical axial images of the abdomen and pelvis were obtained. Automated dose lowering tech niques and/or adjustment according to patient size were utilized for this exam. This exam was perfor med without intravenous contrast. CT DOSE: 1170.82 mGy.cm COMPARISON: None available at the time of this dictation. FINDINGS: Lower chest: No acute abnormality. Liver: Unremarkable. No focal lesions are seen. Gallbladder and biliary tree: No calcified gallstones. Normal caliber wall. No intra- or extrahepatic biliary ductal dilation. Pancreas: Interval decrease in size of pancreatic head mass compatible with walled off necrosis. Wen pancreatic fat stranding and nodularity is likely reactive. Spleen: Unremarkable. Adrenals: Unremarkable. Kidneys and ureters: Unremarkable. Bladder: Unremarkable. Reproductive organs: Unremarkable. Bowel: Thickening of the transverse colonic wall is likely secondary to peripancreatic inflammation. Lymph nodes Retroperitoneal: Subcentimeter lymph nodes are noted. Pelvic: Unremarkable. Mesenteric: Subcentimeter lymph nodes are noted. Peritoneum: Peritoneal stranding and nodularity most prominent in the upper abdomen compatible with p ancreatitis. A small amount of ascites and pelvic fluid is seen. Overall the degree of inflammation i s increased from prior exam. Vessels: Atherosclerotic calcifications are seen. Abdominal wall: A fat-containing umbilical hernia is seen. Bones: Unremarkable. IMPRESSION: 1. Interval progression of inflammatory changes around the pancreas with likely secondary inflammati on of the transverse colon. 2. Walled off necrosis in the pancreatic head has decreased in size from prior exam. 3. Portal vein thrombus was not evaluated secondary to noncontrast technique. 4. Additional findings as above. ACT 112: Negative or not required by law. Electronically signed by: Gary Marie M.D. 12/10/2022 8:50 AM
[2022-12-10] MEDS: LACTATED RINGER'S 1,000 ML IV SCH ×3 (11:08→23:55)
[2022-12-10] MEDS: RIVAROXABAN 20 MG TAB PO SCH (16:17)
--- NOTE | 2022-12-11 04:40 | Electrocardiogram Report ---
Test Reason : Blood Pressure : / mmHG Vent. Rate : 090 BPM Atrial Rate : 090 BPM P-R Int : 198 ms QRS Dur : 088 ms QT Int : 360 ms P-R-T Axes : 047 -11 042 degrees QTc Int : 440 ms Normal sinus rhythm Moderate voltage criteria for LVH, may be normal variant Borderline ECG When compared with ECG of 29-OCT-2021 11:31, No significant change was found Confirmed by Viraj Elizalde ([id number]) on 12/11/2022 4:39:23 AM Referred By: REFERRED SELF Confirmed By:Viraj Elizalde
[2022-12-11] MEDS: LACTATED RINGER'S 1,000 ML IV SCH (06:40)
[2022-12-11] MEDS: PANTOprazole 40 MG TAB PO SCH (07:40)
[2022-12-11] MEDS: allopurinoL 100 MG TAB PO SCH (07:40)
[2022-12-11] MEDS: HYDROCODONE/ACETAMOPHEN 5/325MG TAB PO PRN (07:41)
--- NOTE | 2022-12-11 07:45 | Hospitalist Progress Note ---
Date of Service December 11, 2022 Assessment & Plan Admission and Anticipated Discharge Date Admission Date: December 10, 2022 Results & Data Results & Data ([facility]) Vital Signs (Past 12 Hours) Vital Signs Temp Pulse Resp BP Pulse Ox O2 Del Method 12/11/22 07:05 36.7 C 71 16 120/76 98 Room Air
--- NOTE | 2022-12-11 08:04 | Hospitalist Progress Note ---
Date of Service December 11, 2022 Assessment & Plan (1) Pancreatitis: (2) Traumatic open wound of left lower leg: (3) Hypertension: (4) MVP (mitral valve prolapse): (5) Vitamin D deficiency: (6) Venous stasis ulcer of left lower leg with edema of left lower leg: (7) Chronic venous insufficiency: (8) Chronic kidney disease with symptom management only, stage 4 (severe): (9) Gout: (10) Esophagitis: (11) Deep vein thrombosis: Plan Anthony Sharif is a 42 yo male presenting with 2 weeks abdominal pain and hematemesis likely due to acute pancreatitis and esophagitis. Acute pancreatitis- - Peripancreatic inflammation consistent with acute interstitial pancreatitis, walled off fluid collection, signs of previous hemorrhage without active necrosi s - [place] q4hr PRN and Morphine q3hr PRN - Symptoms improved on LR and liquid diet, transitioned to low fat diet Hematemesis - No recurrence, continue to monitor, Hgb 10.4 - Recommend outpatient EGD GERD/esophagitis/hiatal hernia- Continue pantoprazole 40 mg p.o. daily Chronic left lower extremity venous ulcer/history left lower extremity DVT- following regularly with wound care continue Xarelto CKD stage IV- creatinine 2.55, with range 1.52-2.91, improved today at 1.65 hold lisinopril for now hydralazine 10 mg IV every 4 hours as needed systolic blood pressure greater than 160 Admission and Anticipated Discharge Date Admission Date: December 10, 2022 Supervising Physician Co-Signing Physician Notes I personally examined the patient and verified all bailey points of history and exam, discussed case, and agree with decision making with Mark Parker MS4. Pain continues feel better. Eating better. Extensive discussion on fluid collections, and context given his overall clinical improvement. Offered inpatient gastroenterology consult (discussed that I had planned on having him see GI as an outpatient)he was noncommittal on this, but after answering questions he seemed much more comfortable with his overall situation. Encourag ed strict alcohol cessation. Vitals noted, in general he is awake and alert pleasant no distress. HEENT normocephalic atraumatic mucous membranes moist. Ongoing epigastric tendernessbut much less than yesterday and much less voluntary guarding, still no involuntary guarding rebound or rigidity. Acute recurrent pancreatitisareas of pseudocyst/walled off fluid collectionsbut overall clinical scenario improving quite nicely. Certainly nothing that appears to warrant surgical intervention, and nothing that appears to need endoscopic intervention at this time. Discussed extensively. We will have outpatient GI follow-up, but at this point seems to be improving nicely. Advance diet. Strict alcohol cessation. Hopefully home. With hematemesiswe will also need EGD in that regard as well, but given that his hemoglobin has only dropped commensurate with fluid resuscitation for pancreatitis, his hemodynamics are stable, and he is showing no active signs of bleedingthis can also likely be done as an outpatient. Subjective Mr. Sharif is a 42 yo male with a PMH of pancreatitis, alcohol use disorder, portal vein thrombosis on Xarelto, mitral valve prolapse, and chronic venous stasis with left lower leg wound. He is on hospital day 2 for acute abdominal pain for the past 2 weeks associated with 2 episodes of hematemesis. He has a h istory of alcohol use, his last drink was 3 weeks ago and drinks 1-2 drinks. Today he feels well. Pain was well controlled yesterday (Oxy/Acet at 5am and 3pm) and overnight. Feels the pain returning today and rates it a 4/10. No nausea, vomiting, or bowel movements. Bandage has been on left leg for 8 days, requires weekly changes. No pain in the area. Review of Systems Constitutional: as per Subjective / HPI Physical Exam Constitutional: WD/WN, vitals as above Eyes: PERRL, conjunctivae normal, anicteric sclerae Respiratory: normal respiratory effort, lungs clear to auscultation Cardiovascular: RRR, no murmur, no edema Gastrointestinal (Abdomen): Inspection/Auscultation: abdomen normal to in spection and normal bowel sounds Percussion/Palpation: + abdomen tender Abdomen soft, Upper middle quadrant tender, no guarding or rigidity Results & Data Results & Data ([facility]) Vital Signs (Past 12 Hours) Vital Signs Temp Pulse Resp BP Pulse Ox O2 Del Method 12/11/22 07:05 36.7 C 71 16 120/76 98 Room Air 12/10/22 19:41 36.8 C 82 16 110/68 97 Room Air Laboratory Results 12/11/22 07:46 12/11/22 07:46 (2) Traumatic open wound of left lower leg Encounter type: initial encounter Qualified Code(s): S81.802A - Unspecified open wound, left lower leg, initial encounter (3) Hypertension Hypertension type: unspecified Qualified Code(s): I10 - Essential (primary) hypertension (9) Gout Chronicity: acute Gout etiology: unspecified cause Gout site: toe Laterality: left Qualified Code(s): M10.9 - Gout, unspecified
[2022-12-11 08:19] LABS: Hematocrit (blood only) 31.3 % (42.0-52.0); Hemoglobin 10.4 g/dl (14.0-18.0); Mean Corpuscular Hgb Conc 33.2 g/dL (32.0-36.0); Mean Corpuscular Volume 102.3 fL (80.0-100.0); Mean Platelet Volume 9.4 fL (9.4-12.4); Platelet Count 208 K/uL (130-400); RDW Standard Deviation 45.1 fL (36.4-46.3); Red Blood Count 3.06 M/uL (4.70-6.10); White Blood Count 8.11 K/ul (4.8-10.8)
[2022-12-11 09:10] LABS: BUN Creatinine Ratio 12.7 (10-20); Calcium 8.1 mg/dl (8.5-10.1); Creatinine Clr Calc Pharmacy 70.1 ml/min; Est GFR (African American) 57.7 ml/min; Est GFR (Non-African American) 49.7 ml/min; Potassium 3.6 mmol/L (3.5-5.1)
[2022-12-11] MEDS: RIVAROXABAN 20 MG TAB PO SCH (16:43)
--- NOTE | 2022-12-11 18:22 | Billing Data ---
Date of Service December 11, 2022 Coding Level of Care Code 22853 SUB INP/OBS CARE 3MIN
[2022-12-12] MEDS: PANTOprazole 40 MG TAB PO SCH (07:29)
[2022-12-12] MEDS: allopurinoL 100 MG TAB PO SCH (07:29)
[2022-12-12 08:29] LABS: BUN Creatinine Ratio 9.7 (10-20); Calcium 8.7 mg/dl (8.5-10.1); Creatinine Clr Calc Pharmacy 74.7 ml/min; Est GFR (African American) 62.2 ml/min; Est GFR (Non-African American) 53.6 ml/min; Potassium 3.6 mmol/L (3.5-5.1)
[2022-12-12 08:30] LABS: Hematocrit (blood only) 32.5 % (42.0-52.0); Mean Corpuscular Hemoglobin 34.3 pg (25.0-34.0); Mean Corpuscular Hgb Conc 33.8 g/dL (32.0-36.0); Mean Corpuscular Volume 101.2 fL (80.0-100.0); Mean Platelet Volume 9.4 fL (9.4-12.4); Platelet Count 252 K/uL (130-400); RDW Coefficient of Variation 11.9 % (11.5-14.5); Red Blood Count 3.21 M/uL (4.70-6.10); White Blood Count 7.68 K/ul (4.8-10.8)
--- NOTE | 2022-12-12 10:35 | Discharge Summary ---
Date of Service December 12, 2022 Admission HPI Per Admitting Provider The patient is a 42-year-old male with a past medical history including slow healing traumatic open wound of left lower leg, left lower extremity DVT on chronic anticoagulation with Xarelto, bilateral knee osteoarthritis, hypertension, mitral valve prolapse, pancreatitis, anemia, vitamin D deficiency, CKD stage IV, secondary hyperparathyroidism of renal origin, chronic venous insufficiency. He presents to the emergency department with complaint of worsening epigastric pain accompanied by nausea over the past few weeks, without vomiting, with symptoms similar to previous episode of pancreatitis Admission Exam Per Admitting Provider The patient is awake, alert and oriented 3, well developed and well nourished, normocephalic and atraumatic, lying in bed and in no acute distress. HEENT--PERRL, EOMI, mucous membranes and oropharynx mildly dry. Neck--supple. No JVD. No bruits. Thyroid normal, trachea midline, no adenopathy. Heart--normal S1 and S2. No murmurs, rubs or gallops. Lungs--clear bilaterally, no respiratory distress, no accessory muscle use. Abdomen--normal bowel sounds and soft. Severely tender epigastric area to light touch. Nondistended, no hernias or masses, no organomegaly. Extremities--no cyanosis or clubbing. No edema. Dermatologic--normal skin turgor, normal color, no abnormal lymph nodes, no rash. Neurologic--cranial nerves II through XII grossly intact. Rheumatologic--normal range of motion. Psychiatric--normal affect. Principal Diagnosis Acute pancreatitis Discharge Exam Constitutional WD/WN, vitals as above Eyes PERRL, conjunctivae normal, anicteric sclerae Respiratory normal respiratory effort, lungs clear to auscultation Cardiovascular RRR, no murmur, no edema Gastrointestinal (Abdomen) normal bowel sounds, soft, nontender, no hepatosplenomegaly Skin Left leg wrapped Discharge Data Allergies Allergy/AdvReac Type Severity Reaction Status Date / Time cephalexin Allergy Mild Rash Verified 12/10/22 01:23 Consultations 12/10/22 00:31 ED Decision to Admit Stat Ordered Studies 12/09/22 22:23 CT abd pelvis wo con Urgent Hospital Course (1) Pancreatitis: (2) Traumatic open wound of left lower leg: (3) Hypertension: (4) Venous stasis ulcer of left lower leg with edema of left lower leg: (5) Chronic venous insufficiency: (6) Chronic kidney disease with symptom management only, stage 4 (severe): (7) Gout: (8) Esophagitis: (9) Deep vein thrombosis: Plan Anthony Sharif is a 42 yo male with a PMH of acute pancreatitis, alcohol use disorder, CKD, and coagulopathy presenting with 2 weeks abdominal pain and hematemesis. Leading differential on admission was acute pancreatitis, supported by CT abdomen/pelvis. Acute pancreatitis - CT Abd in the ED 12/10 - Peripancreatic inflammation consistent with acute i nterstitial pancreatitis, walled off fluid collection, signs of previous hemorrhage without active necrosis - [place] q4hr PRN to control pain, Morphine q3hr PRN not required - LR 150 mL/hr and liquid diet - diet advanced to low fat 12/11 - Counseled on alcohol cessation - Met with forest officer to discuss low fat diet - Manage pain with Tylenol PRN Hematemesis - No recurrence, continue to monitor, Hgb 10.4 - Recommend outpatient EGD with outpatient GI to further workup GERD/esophagitis/hiatal hernia- - Continue pantoprazole 40 mg p.o. daily Chronic left lower extremity venous ulcer/history left lower extremity DVT- - following regularly with wound care, wound care consulted to change bandage 12/11 - continue Xarelto CKD stage IV- - creatinine 2.55, with range 1.52-2.91, improved to 1.55 - lisinopril held, restart on discharge Gout - Continue home allopurinol Total Time Total Time Spent Total Time Spent (In Minutes): <30 Discharge Plan Discharge Items Patient Disposition: Home - Self-Care Reason For Visit: ACUTE ON CHRONIC PANCREATITIS Discharge Diagnosis: acute pancreatitis Activity: Per Instructions section Non-emergency contact: Primary Care Provider and [facility] Call non-emergency contact if: you have any medication questions, your symptoms worsen and your pain is worsening Follow-up/Referrals: Jaja Cali MD [Primary Care Provider] - 12/17/22 2:00 pm Sachi Pressley MD [Physician] - 12/23/22 9:20 am (f/u within 2-3 weeks after discharge, repeat pancreatitis) Diet: Low Fat Addtl Attending Provider Instructions: You were admitted to the hospital for sever abdominal pain that was found to be caused by pancreatitis. You were treated with IV fluids, pain medications, and allowing your GI tract to rest. Upon discharge, your pain was well controlled and you were tolerating a low fat diet. It is recommended that you continue to follow a low fat diet. This type of diet is less likely to aggravate your symptoms. You should also avoid alcohol consumption. A discharge summary will be sent to your primary care physician to ensure continuity of care. Please bring this discharge summary with you to your next office appointment so that your provider can review it at that time. Medications: Your medication list has been reviewed and reconciled upon discharge to ensure accuracy and continuity of care. An updated list of all your medications is included with your hospital discharge paperwork. Please review this list closely and make note of any changes to your medications. - To manage your pain at home (if you should have any further pain), take tylenol. Avoid NSAIDs (like ibuprofen) because these medications can hurt your kidneys. Follow up appointments: - Make a follow up appointment with your PCP within the next week. It is very important that you follow up with them shortly after discharge from the hospital. - You should also follow up with GI doctor within the weeks after discharge. - Keep all of your follow up appointments as already scheduled. If you cannot make an appointment, notify your provider. CONTACT YOUR PRIMARY CARE PROVIDER if you experience any of the following: - Lingering, but manageable, abdominal pain - Difficulty following your treatment plan - Difficulty taking any of your medications CALL 911 OR GO TO THE EMERGENCY DEPARTMENT if you experience any of the following: - Sudden, severe abdominal pain or nausea/vomiting - Severe chest pain or chest pain that radiates to your jaw or arm - Sudden, severe shortness of breath or difficulty breathing Pending Studies at Discharge: No Stand-Alone Forms: My [facility] [employer], Smoking Cessation Medications and DC Order Prescriptions: Continued Xarelto 20 mg tablet 20 mg PO QPM Rx Instructions: must administer with evening meal pantoprazole 40 mg tablet,delayed release (DR/EC) 40 mg PO DAILY Qty: 90 3RF allopurinol 100 mg tablet 100 mg PO DAILY Qty: 90 3RF lisinopril 20 mg tablet 40 mg PO DAILY 90 Days Qty: 180 3RF calcitriol 0.25 mcg capsule 0.25 mcg PO 3XWK Rx Instructions: TAKE THIS MED EVERY MON/WED/FRI Discharge Orders: Discharge Order (Routine); Ordered 12/12/22 Ordered By: Mayra Abdalla/Other Patient Handouts: ED Diet, Low Fat Admission Data Admit Date/Time: 12/10/22 01:35 Attending Provider: Noah Huang Admit Provider: Robson Reyez Primary Care Provider: Jaja Cali Other Providers: Robson Reyez Other Interventions: Discharge Summary Assessment (RN) Last Done: 12/12/22 16:18 Supervising Physician Co-Signing Physician Notes I personally examined the patient and verified all bailey points of history and exam, discussed case, and agree with decision making with Mark Keith MS4. Feeling better. Eating better. Very little abdominal pain. Vitals noted, in general he is awake and alert pleasant no distress. HEENT normocephalic atraumatic mucous membranes moist. Very mild epigastric tendernessand yet again much less than even yesterday and much less voluntary guarding, still no involuntary guarding rebound or rigidity. Acute recurrent pancreatitisareas of pseudocyst/walled off fluid collectionsbut overall clinical scenario improving quite nicely. Certainly nothing that appears to warrant surgical intervention, and nothing that appears to need endoscopic intervention at this time. Discussed extensively the last few days and reviewed discussion today. We will have outpatient GI follow-up, but at this point seems to be improving nicely. Tolerating regular diet strict alcohol cessation. Hopefully home. With hematemesiswe will also need EGD in that regard as well, but given that his hemoglobin has only dropped commensurate with fluid resuscitation for pancreatitis, his hemodynamics are stable, and he is showing no active signs of bleedingthis can also likely be done as an outpatient. Asked that he be set up with outpatient GI in the very near future. Safe/stable for home with PCP and GI follow-up.
[2022-12-12] MEDS: RIVAROXABAN 20 MG TAB PO SCH (16:32)
--- NOTE | 2022-12-12 20:47 | Billing Data ---
Date of Service December 12, 2022 Coding Level of Care Code HOSP INP/OBS DISCH 30 MIN/LESS
== END 2022-12-12 17:20 | disposition home or self-care (01) | DRG 439 ==
LOC: ED 19:30 → SUATTDRO 12-10 01:35 → INTOOBSV 12-10 01:35 → 3N 12-10 01:35

== ENCOUNTER 2023-01-17 16:40 | Inpatient (IN) ==
--- NOTE | 2023-01-17 17:33 | XRay Report ---
XR chest 1V not portable HISTORY: Sepsis COMPARISON: Chest 10/29/2021. FINDINGS: No pneumothorax. No pleural effusions. The lungs are clear. The heart is normal in size. IMPRESSION: No acute process. ACT 112: Negative or not required by law. Electronically signed by: Omar Duque M.D. 01/17/2023 5:32 PM
[2023-01-17 20:34] LABS: Basophils # (auto) 0.06 K/uL (0-0.2); Basophils % (auto) 0.4 %; Eosinophils # (auto) 0.41 K/uL (0-0.50); Eosinophils % (auto) 2.8 %; Hematocrit (blood only) 35.5 % (42.0-52.0); Hemoglobin 11.8 g/dl (14.0-18.0); Immature Granulocytes # (auto) 0.04 K/uL (0.01-0.20); Immature Granulocytes % (auto) 0.3 %; Lymphocytes # (auto) 1.57 K/uL (1.2-3.4); Lymphocytes % (auto) 10.9 %; Mean Corpuscular Hemoglobin 33.1 pg (25.0-34.0); Mean Corpuscular Hgb Conc 33.2 g/dL (32.0-36.0); Mean Corpuscular Volume 99.4 fL (80.0-100.0); Mean Platelet Volume 9.2 fL (9.4-12.4); Monocytes # (auto) 0.88 K/uL (0.11-0.59); Monocytes % (auto) 6.1 %; Neutrophils # (auto) 11.49 K/uL (1.40-6.50); Neutrophils % (auto) 79.5 %; Platelet Count 267 K/uL (130-400); RDW Coefficient of Variation 13.1 % (11.5-14.5); RDW Standard Deviation 48.6 fL (36.4-46.3); Red Blood Count 3.57 M/uL (4.70-6.10); White Blood Count 14.45 K/ul (4.8-10.8)
[2023-01-17 20:44] LABS: Albumin Globulin Ratio 1.3 (0.9-2); Albumin Level 4.4 gm/dl (3.4-5.0); BUN Creatinine Ratio 13.7 (10-20); Bilirubin,Total 0.6 mg/dl (0.2-1.0); Calcium 9.8 mg/dl (8.6-10.3); Creatinine Clr Calc Pharmacy 54.6 ml/min; Est GFR (African American) 42.6 ml/min; Est GFR (Non-African American) 36.7 ml/min; Globulin 3.4 gm/dl (2.5-4.0); Magnesium 1.7 mg/dl (1.7-2.4); Potassium 4.3 mmol/L (3.5-5.1); Total Protein 7.8 gm/dl (6.0-8.3)
[2023-01-17 20:51] LABS: Troponin I High Sensitivity 5.9 pg/ml (0-20)
[2023-01-17 20:52] LABS: INR 1.2 (0.9-1.1); Partial Thromboplastin Ratio 1.5; Partial Thromboplastin Time 40.2 Seconds (21.0-31.0)
[2023-01-17] MEDS ORDERED: SODIUM CHLORIDE 0.9% 1000ML 1,000 ML IV SCH (22:00)
--- NOTE | 2023-01-17 22:30 | Emergency Department Note ---
History of Present Illness General Chief complaint: Syncope (Near Syncope) Stated complaint: BLURRY VISION, NEAR SYNCOPE, Time Seen by Provider: 01/17/23 21:35 History of Present Illness This is a 42-year-old male presenting to the emergency department for evaluation of blurriness of his vision, flushed sensation, and fatigue worsening throughout the course of today. The patient went to the wound care clinic today for a routine check of chronic venous ulcerations of his left foot. The patient grew out Pseudomonas from a swab last week and is currently on gentamicin ointment. The patient has been adherent to his medication. After his visit today he did go to work when symptoms began. He states that he has had similar symptoms like this in the past when he has been septic. He does not report having a distinct objective fever, but does feel warm. He has been eating and drinking as normal. No chest pain, chest tightness, or shortness of breath. He feels like he has been eating and drinking well, and does not believe that he is dehydrated. He rates his discomfort a 5/10. Home Medications Medication Instructions Recorded Confirmed Type pantoprazole 40 mg tablet,delayed 40 mg PO DAILY #90 tabs 04/22/22 01/17/23 Rx release calcitriol 0.25 mcg capsule 0.25 mcg PO 3XWK 07/15/22 01/17/23 History rivaroxaban 20 mg tablet (Xarelto) 20 mg PO QPM 08/01/22 01/17/23 History allopurinol 100 mg tablet 100 mg PO DAILY #90 tabs 09/09/22 01/17/23 Rx lisinopril 20 mg tablet 40 mg PO DAILY 90 days #180 tabs 11/25/22 01/17/23 Rx gentamicin 0.1 % topical ointment 1 applic topical DAILY 14 days #30 01/13/23 01/17/23 Rx grams Allergies Allergy/AdvReac Type Severity Reaction Status Date / Time cephalexin Allergy Mild Rash Verified 01/17/23 08:22 Past Med/Surg History Medical History Acute pancreatitis Alcohol use disorder Anemia Chronic kidney disease with symptom management only, stage 4 (severe) Chronic venous insufficiency Coagulopathy Deep vein thrombosis 07/2018/CHRONIC- ON Xarelto Elevated lipase Encounter for pre-operative examination Encounter for pre-operative examination Esophagitis Hematemesis Hypertension Hypokalemia MVP (mitral valve prolapse) 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 ECHO Osteomyelitis of ankle or foot, left, acute Pancreatitis Pancreatitis Portal vein thrombosis Pseudocyst, pancreas Secondary hyperparathyroidism of renal origin Traumatic open wound of left lower leg Vitamin D deficiency Vomiting Surgical History Hx of biopsy LEFT KIDNEY S/P vascular surgery LLE 2/2 VENOUS INSUFFICIENCY Status post left foot surgery I and D of left foot on 08/22/21. LMA #5 Family History Mother FHx: lung cancer Hypertension Breast cancer Brother FHx: testicular cancer Hypertension Father Hypertension Unknown Myocardial infarction Social History Smoking Status: Never smoker Second Hand Exposure: No; Hx Alcohol Use: No Hx Substance Use: No Preferred Language: Lao Communication Ability: Effective Visual Impairment: No Limitations Trading Specialist Required: No Beliefs That Will Affect Care: None marital status: Single Current Living Situation: Significant Other Current Living Situation Comment: [employer] KIDS current occupational status: unemployed How many Children do You have: 4 Other Information That Helps Us Care for You: No Feels Safe at Home: Yes Safety Concerns: Feels Safe At This Time Diet Comment: low fat during the past year weight has: decreased > 10 lbs Assistive Devices: None Review of Systems A total of 10 systems reviewed and were otherwise negative Physical Exam Vital Signs Vital Signs - 24 hr 01/17/23 16:46 01/17/23 19:54 Temperature 36.2 C L Temperature Source Temporal Artery Scan Pulse Rate 146 H Pulse Rate [Finger] 93 H Respiratory Rate 20 18 Respiratory Effort / Characteristics Non-Labored Spontaneous Respiratory Depth Normal Respiratory Pattern Regular Blood Pressure 122/75 Blood Pressure Mean 90 Pulse Oximetry 99 Oxygen Delivery Method Room Air Sepsis Recent Fever Within 48 Hours No Sepsis New/Unexplained Change in Mental Status N/A Sepsis Action Taken by Nursing No Action Required VITALS: Vitals are noted on the nurse's note and reviewed by myself. Vital signs with mild tachycardia GENERAL: Well-developed, well-nourished, white male, who is in no acute distress and resting comfortably. Patient is cooperative with the examination. HEAD: Normocephalic atraumatic. HEART: Regular rate and rhythm without murmurs gallops or rubs. LUNGS: Clear to auscultation bilaterally without wheezes, rales or rhonchi. No retractions or accessory muscle use. ABDOMEN: Positive normal bowel sounds x 4. Soft, nontender, without masses or organomegaly. No guarding or rebound tenderness. NEURO: Patient was alert and oriented to person place and time. CN II through XI I grossly intact. Course Administered Medications Ciprofloxacin (Cipro / D5w) 400 mg in 200 mls @ 100 mls/hr IV Q12H CURTIS; Protocol Stop: 01/25/23 00:29 Last Infusion: 01/18/23 02:36 Dose: 0 mls/hr Documented By: Admin: 01/18/23 00:36 Dose: 100 mls/hr Documented By: MARVIN Lactated Ringer's (Lr) 1,000 mls @ 125 mls/hr IV .Q8H CURTIS Stop: 01/18/23 16:08 Last Admin: 01/18/23 02:25 Dose: 125 mls/hr Documented By: MARVIN Discontinued Medications Sodium Chloride (Nss 1000ml) 1,000 mls @ 999 mls/hr IV .Q1H1M CURTIS Stop: 01/17/23 23:00 Last Infusion: 01/17/23 23:33 Dose: 999 mls/hr Documented By: Admin: 01/17/23 22:06 Dose: 999 mls/hr Documented By: ONI Medical Decision Making Differential Diagnosis Differential diagnosis: Etiologies such as viral syndrome, otitis, pharyngitis, pneumonia, influenza, meningitis, urinary tract infection, septic arthritis, soft tissue infectious process, intra-abdominal process, sepsis, bacteremia, as well as others were entertained. Laboratory Data 01/17/23 19:49 01/17/23 19:49 Lab Results 01/17/23 01/17/23 01/17/23 Range/Units 19:49 19:49 19:49 WBC 14.45 H (4.8-10.8) K/ul RBC 3.57 L (4.70-6.10) M/uL Hgb 11.8 L (14.0-18.0) g/dl Hct 35.5 L (42.0-52.0) % MCV 99.4 (80.0-100.0) fL MCH 33.1 (25.0-34.0) pg MCHC 33.2 (32.0-36.0) g/dL RDW Std Deviation 48.6 H (36.4-46.3) fL RDW Coeff of Machelle 13.1 (11.5-14.5) % Plt Count 267 (130-400) K/uL MPV 9.2 L (9.4-12.4) fL Immature Gran % (Auto) 0.3 % Neut % (Auto) 79.5 % Lymph % (Auto) 10.9 % [place] % (Auto) 6.1 % Eos % (Auto) 2.8 % Baso % (Auto) 0.4 % Neut # (Auto) 11.49 H (1.40-6.50) K/uL Lymph # (Auto) 1.57 (1.2-3.4) K/uL [place] # (Auto) 0.88 H (0.11-0.59) K/uL Eos # (Auto) 0.41 (0-0.50) K/uL Baso # (Auto) 0.06 (0-0.2) K/uL Immature Gran # (Auto) 0.04 (0.01-0.20) K/uL PT 13.0 H (9.0-12.0) Seconds INR 1.2 H (0.9-1.1) APTT 40.2 H (21.0-31.0) Seconds PTT Ratio 1.5 Sodium 139 (136-145) mmol/L Potassium 4.3 (3.5-5.1) mmol/L Chloride 110 H (98-107) mmol/L Carbon Dioxide 19 L (21-32) mmol/L Anion Gap 10 (3-11) BUN 29 H (6-23) mg/dl Creatinine 2.12 H (0.6-1.4) mg/dl Est Cr Clr Drug Dosing 54.6 ml/min Est GFR ( Amer) 42.6 ml/min Est GFR (Non-Af Amer) 36.7 ml/min BUN/Creatinine Ratio 13.7 (10-20) Glucose 98 (70-99(Fasting)) mg/dl Lactate (0.4-2.0) mmol/L Calcium 9.8 (8.6-10.3) mg/dl Magnesium 1.7 (1.7-2.4) mg/dl Total Bilirubin 0.6 (0.2-1.0) mg/dl AST 11 L (13-39) U/L ALT 37 (7-52) U/L Alkaline Phosphatase 181 H (34-104) U/L Troponin I High Sens 5.9 (0-20) pg/ml Total Protein 7.8 (6.0-8.3) gm/dl Albumin 4.4 (3.4-5.0) gm/dl Globulin 3.4 (2.5-4.0) gm/dl Albumin/Globulin Ratio 1.3 (0.9-2) Procalcitonin (0-0.5) ng/ml SARS-CoV-2, RNA, NAAT (NEGATIVE) 01/17/23 01/17/23 01/17/23 Range/Units 19:49 19:49 22:00 WBC (4.8-10.8) K/ul RBC (4.70-6.10) M/uL Hgb (14.0-18.0) g/dl Hct (42.0-52.0) % MCV (80.0-100.0) fL MCH (25.0-34.0) pg MCHC (32.0-36.0) g/dL RDW Std Deviation (36.4-46.3) fL RDW Coeff of Machelle (11.5-14.5) % Plt Count (130-400) K/uL MPV (9.4-12.4) fL Immature Gran % (Auto) % Neut % (Auto) % Lymph % (Auto) % [place] % (Auto) % Eos % (Auto) % Baso % (Auto) % Neut # (Auto) (1.40-6.50) K/uL Lymph # (Auto) (1.2-3.4) K/uL [place] # (Auto) (0.11-0.59) K/uL Eos # (Auto) (0-0.50) K/uL Baso # (Auto) (0-0.2) K/uL Immature Gran # (Auto) (0.01-0.20) K/uL PT (9.0-12.0) Seconds INR (0.9-1.1) APTT (21.0-31.0) Seconds PTT Ratio Sodium (136-145) mmol/L Potassium (3.5-5.1) mmol/L Chloride (98-107) mmol/L Carbon Dioxide (21-32) mmol/L Anion Gap (3-11) BUN (6-23) mg/dl Creatinine (0.6-1.4) mg/dl Est Cr Clr Drug Dosing ml/min Est GFR ( Amer) ml/min Est GFR (Non-Af Amer) ml/min BUN/Creatinine Ratio (10-20) Glucose (70-99(Fasting)) mg/dl Lactate 0.9 (0.4-2.0) mmol/L Calcium (8.6-10.3) mg/dl Magnesium (1.7-2.4) mg/dl Total Bilirubin (0.2-1.0) mg/dl AST (13-39) U/L ALT (7-52) U/L Alkaline Phosphatase (34-104) U/L Troponin I High Sens (0-20) pg/ml Total Protein (6.0-8.3) gm/dl Albumin (3.4-5.0) gm/dl Globulin (2.5-4.0) gm/dl Albumin/Globulin Ratio (0.9-2) Procalcitonin 0.40 (0-0.5) ng/ml SARS-CoV-2, RNA, NAAT NEGATIVE (NEGATIVE) Imaging Data Radiologist's Impression: Chest X-Ray 01/17/23 16:49 XR chest 1V not portable HISTORY: Sepsis COMPARISON: Chest 10/29/2021. FINDINGS: No pneumothorax. No pleural effusions. The lungs are clear. The heart is normal in size. IMPRESSION: No acute process. ACT 112: Negative or not required by law. Electronically signed by: Omar Duque M.D. 01/17/2023 5:32 PM [facility] Narrative Physical exam and history were performed. Nursing notes, EMR, and Medication List were personally reviewed. No social concerns were identified as barriers to patients care. Patient appears to have several symptoms bringing him to the ER. Patient is concerning as he has chronic ulceration of the lower extremity with positive Pseudomonas culture. IV access was established and labs were obtained. Lactic performed. Blood cultures gathered. Patient's blood work is as above and was reviewed. He does have an elevated white count of 14,000. He does not have significant anemia or gross electrolyte imbalance. INR is 1.2. BUN and creatinine are elevated consistent with his chronic disease. Transaminases are not diagnostic. Other labs are as above. An order was placed for continuous cardiac monitoring. The monitor shows a rate of 87 with normal sinus rhythm. Overall the patient does not appear well for discharge home. He is persistently tachycardic on my evaluation. He has chronic wound infection. He does have an elevated white blood cell count and likely will need IV antibiotics. He has had difficulty tolerating several antibiotics in the past. I did reach out to the on-call hospitalist team who will initiate therapy. Please see their dictation for further patient course, plan, disposition. The chart was completed utilizing [employer] Speech Voice Recognition Software. Grammatical errors, random word insertions, pronoun errors, and incomplete sentences are an occasional consequence of this system due to software limitations, ambient noise, and hardware issues. Any formal questions or concerns about the content, text, or information contained within the body of this dictation should be directly addressed to the provider for clarification. . Impression & Plan Wound infection Discharge Plan Visit Data Chief Complaint: Syncope (Near Syncope) Stated Complaint: BLURRY VISION, NEAR SYNCOPE, ED Provider: Anirudh Blue ED Midlevel Provider: Abdulkadir Kasper Discharge Problem: Wound infection Patient Disposition: Admitted As Inpatient Discharge Instructions Interventions: ED Discharge Assessment Last Done: 01/17/23 23:43
--- NOTE | 2023-01-17 23:01 | History & Physical Report ---
Date of Service January 17, 2023 Assessment & Plan (1) Wound infection: Plan: 42yo male with history of chronic wounds presenting with concern for early sepsis - flushed, blurry vision, nausea, generalized weakness following a wound debridement today. Patient with recent wound culture 01/10/23 positive for olson- sensitive Pseudomonas. He has been using topical Gentamicin ointment which he feels has not been improving his wound. He is presently afebrile, HD stable and nontoxic in appearance. He does have leukocytosis with WBC=14.45 -Observation to medical -Follow cultures sent from ER -Wound care daily and as needed -Ciprofloxacin 400mg IV BID -IVF with LR at 125mL/hr x 2 liters (2) Chronic kidney disease with symptom management only, stage 4 (severe): Plan: BUN and Cr near baseline. -Avoid nephrotoxic agents -Renal dosing where needed -Monitor BUN, Cr and electrolytes -Continue Calcitriol qM/W/F (3) Hypertension: Plan: Chronic. Well controlled at present -Hold Lisinopril for now -Monitor BP (4) GERD (gastroesophageal reflux disease): Plan: Chronic. Stable. Patient with history of UGIB, esophagitis -Continue Protonix 40mg po daily (5) DVT (deep venous thrombosis): Plan: History of DVT -Continue Rivaroxaban F/E/N - LR at 125ml/hr x 2 liters, monitor electrolytes, heart healthy diet as tolerated Ppx - On Rivaroxaban Code - Full Dispo - Observation to medical History of Present Illness Chief Complaint: Pseudomonas wound infection Primary Care Provider: Jaja Cali MD Anthony Sharif is a 42yo male wit history of CKD, HTN, DVT and chronic LE wounds presenting with wound infection, feeling overall unwell. He reports blurry vision, feeling warm and flushed as well as generalized weakness and fatigue and near-syncope earlier today. He also reports nausea and some HUYNH. He reports feeling this way in the past when he was septic from a wound infection. Patient was seen at the wound care clinic this week and had debridement of his foot ulcers. Has venous ulcers on toes of left foot. Recent wound culture positive for Pseudomonas. Patient has been using topical gentamicin. He does not feel that the wounds are improving - increased pain and drainage. In the ER he is afebrile, HD stable, NAD ER Course: NSS, Ciproloxacin Allergies Allergy/AdvReac Type Severity Reaction Status Date / Time cephalexin Allergy Mild Rash Verified 01/17/23 08:22 Home Medications Medication Instructions Recorded Confirmed Type pantoprazole 40 mg tablet,delayed 40 mg PO DAILY #90 tabs 04/22/22 01/17/23 Rx release calcitriol 0.25 mcg capsule 0.25 mcg PO 3XWK 07/15/22 01/17/23 History rivaroxaban 20 mg tablet (Xarelto) 20 mg PO QPM 08/01/22 01/17/23 History allopurinol 100 mg tablet 100 mg PO DAILY #90 tabs 09/09/22 01/17/23 Rx lisinopril 20 mg tablet 40 mg PO DAILY 90 days #180 tabs 11/25/22 01/17/23 Rx gentamicin 0.1 % topical ointment 1 applic topical DAILY 14 days #30 01/13/23 01/17/23 Rx grams Past Med/Surg History Medical History Acute pancreatitis Alcohol use disorder Anemia Chronic kidney disease with symptom management only, stage 4 (severe) Chronic venous insufficiency Coagulopathy Deep vein thrombosis 07/2018/CHRONIC- ON Xarelto Elevated lipase Encounter for pre-operative examination Encounter for pre-operative examination Esophagitis Hematemesis Hypertension Hypokalemia MVP (mitral valve prolapse) 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 ECHO Osteomyelitis of ankle or foot, left, acute Pancreatitis Pancreatitis Portal vein thrombosis Pseudocyst, pancreas Secondary hyperparathyroidism of renal origin Traumatic open wound of left lower leg Vitamin D deficiency Vomiting Surgical History Hx of biopsy LEFT KIDNEY S/P vascular surgery LLE 2/2 VENOUS INSUFFICIENCY Status post left foot surgery I and D of left foot on 08/22/21. 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 Beliefs That Will Affect Care: None marital status: Single Current Living Situation: Significant Other Current Living Situation Comment: [employer] KIDS current occupational status: unemployed How many Children do You have: 4 Other Information That Helps Us Care for You: No Feels Safe at Home: Yes Safety Concerns: Feels Safe At This Time Diet Comment: low fat during the past year weight has: decreased > 10 lbs Assistive Devices: None Review of Systems Review of Systems: All systems reviewed & are unremarkable except as noted in HPI & below Physical Exam 2 Physical Exam: General: patient resting comfortably, NAD, non-toxic in appearance, AA&O x 4 Skin: warm, dry, LLE with dressing in place HEENT: NC/AT, PERRL, EOMI, anicteric sclera, conjunctiva without injection, external ear normal to inspection and nontender, nares patent, moist mucus membranes, dentition intact, no oropharyngeal lesions, neck supple, trachea midline, no LAD, no thyromegaly, no JVD Heart: +S1/S2, regular, no m/r/g Lungs: equal air entry bilaterally, no rales/rhonchi/wheezes Abd: +BS, soft, NT/ND, no masses/organomegaly/ascites Ext: warm, 2+ pulses in UE/LE bilaterally, no clubbing/cyanosis or edema Neuro: nonfocal, patient AA&O x 4, speech intact, no facial droop, moving all extremities on command with equal strength 5/5 Results & Data Results & Data Vital Signs (Past 12 Hours) Vital Signs Temp Pulse Pulse Resp BP Pulse Ox O2 Del Method 01/17/23 19:54 93 H 18 01/17/23 16:46 36.2 C L 146 H 20 122/75 99 Room Air Laboratory Results Laboratory Results WBC 14.45 K/ul (4.8-10.8) H 01/17/23 19:49 RBC 3.57 M/uL (4.70-6.10) L 01/17/23 19:49 Hgb 11.8 g/dl (14.0-18.0) L 01/17/23 19:49 Hct 35.5 % (42.0-52.0) L 01/17/23 19:49 MCV 99.4 fL (80.0-100.0) 01/17/23 19:49 MCH 33.1 pg (25.0-34.0) 01/17/23 19:49 MCHC 33.2 g/dL (32.0-36.0) 01/17/23 19:49 RDW Std Deviation 48.6 fL (36.4-46.3) H 01/17/23 19:49 RDW Coeff of Machelle 13.1 % (11.5-14.5) 01/17/23 19:49 Plt Count 267 K/uL (130-400) 01/17/23 19:49 MPV 9.2 fL (9.4-12.4) L 01/17/23 19:49 Immature Gran % (Auto) 0.3 % 01/17/23 19:49 Neut % (Auto) 79.5 % 01/17/23 19:49 Lymph % (Auto) 10.9 % 01/17/23 19:49 [place] % (Auto) 6.1 % 01/17/23 19:49 Eos % (Auto) 2.8 % 01/17/23 19:49 Baso % (Auto) 0.4 % 01/17/23 19:49 Neut # (Auto) 11.49 K/uL (1.40-6.50) H 01/17/23 19:49 Lymph # (Auto) 1.57 K/uL (1.2-3.4) 01/17/23 19:49 [place] # (Auto) 0.88 K/uL (0.11-0.59) H 01/17/23 19:49 Eos # (Auto) 0.41 K/uL (0-0.50) 01/17/23 19:49 Baso # (Auto) 0.06 K/uL (0-0.2) 01/17/23 19:49 Immature Gran # (Auto) 0.04 K/uL (0.01-0.20) 01/17/23 19:49 PT 13.0 Seconds (9.0-12.0) H 01/17/23 19:49 INR 1.2 (0.9-1.1) H 01/17/23 19:49 APTT 40.2 Seconds (21.0-31.0) H 01/17/23 19:49 PTT Ratio 1.5 01/17/23 19:49 Sodium 139 mmol/L (136-145) 01/17/23 19:49 Potassium 4.3 mmol/L (3.5-5.1) 01/17/23 19:49 Chloride 110 mmol/L (98-107) H 01/17/23 19:49 Carbon Dioxide 19 mmol/L (21-32) L 01/17/23 19:49 Anion Gap 10 (3-11) 01/17/23 19:49 BUN 29 mg/dl (6-23) H 01/17/23 19:49 Creatinine 2.12 mg/dl (0.6-1.4) H 01/17/23 19:49 Est Cr Clr Drug Dosing 54.6 ml/min 01/17/23 19:49 Est GFR ( Amer) 42.6 ml/min 01/17/23 19:49 Est GFR (Non-Af Amer) 36.7 ml/min 01/17/23 19:49 BUN/Creatinine Ratio 13.7 (10-20) 01/17/23 19:49 Glucose 98 mg/dl (70-99(Fasting)) 01/17/23 19:49 Lactate 0.9 mmol/L (0.4-2.0) 01/17/23 19:49 Calcium 9.8 mg/dl (8.6-10.3) 01/17/23 19:49 Magnesium 1.7 mg/dl (1.7-2.4) 01/17/23 19:49 Total Bilirubin 0.6 mg/dl (0.2-1.0) 01/17/23 19:49 AST 11 U/L (13-39) L 01/17/23 19:49 ALT 37 U/L (7-52) 01/17/23 19:49 Alkaline Phosphatase 181 U/L (34-104) H 01/17/23 19:49 Troponin I High Sens 5.9 pg/ml (0-20) 01/17/23 19:49 Total Protein 7.8 gm/dl (6.0-8.3) 01/17/23 19:49 Albumin 4.4 gm/dl (3.4-5.0) 01/17/23 19:49 Globulin 3.4 gm/dl (2.5-4.0) 01/17/23 19:49 Albumin/Globulin Ratio 1.3 (0.9-2) 01/17/23 19:49 Procalcitonin 0.40 ng/ml (0-0.5) 01/17/23 19:49 SARS-CoV-2, RNA, NAAT NEGATIVE (NEGATIVE) 01/17/23 22:00 Impressions Chest X-Ray 01/17/23 16:49 XR chest 1V not portable HISTORY: Sepsis COMPARISON: Chest 10/29/2021. FINDINGS: No pneumothorax. No pleural effusions. The lungs are clear. The heart is normal in size. IMPRESSION: No acute process. ACT 112: Negative or not required by law. Electronically signed by: Omar Duque M.D. 01/17/2023 5:32 PM [facility] Care Time/CCT Total # of Minutes Spent Total Time Spent with Patient: Total time spent is greater than 50% in coordination of care (as documented) at patient's floor/unit and/or counseling patient: Coding Level of Care Code 71532 INT INP/OBS CARE 2/55MIN Diagnoses Wound infection T14.8XXA; L08.9 Chronic kidney disease with symptom management only, stage 4 (severe) N18.4 Hypertension I10 Hypertension type: unspecified GERD (gastroesophageal reflux disease) K21.9 DVT (deep venous thrombosis) I82.409 (3) Hypertension Hypertension type: unspecified Qualified Code(s): I10 - Essential (primary) hypertension
[2023-01-18] MEDS: CIPROFLOXACIN / D5W 400 MG/200 ML BAG IV SCH ×2 (00:36→13:59)
[2023-01-18] MEDS: LACTATED RINGER'S 1,000 ML IV SCH ×2 (02:25→09:14)
[2023-01-18 06:43] LABS: Hematocrit (blood only) 30.6 % (42.0-52.0); Hemoglobin 10.2 g/dl (14.0-18.0); Mean Corpuscular Hemoglobin 33.7 pg (25.0-34.0); Mean Corpuscular Hgb Conc 33.3 g/dL (32.0-36.0); Mean Platelet Volume 9.3 fL (9.4-12.4); Platelet Count 188 K/uL (130-400); RDW Coefficient of Variation 13.2 % (11.5-14.5); Red Blood Count 3.03 M/uL (4.70-6.10); White Blood Count 9.97 K/ul (4.8-10.8)
[2023-01-18 06:47] LABS: BUN Creatinine Ratio 13.9 (10-20); Calcium 8.8 mg/dl (8.6-10.3); Creatinine Clr Calc Pharmacy 66.9 ml/min; Est GFR (African American) 54.4 ml/min; Potassium 4.1 mmol/L (3.5-5.1)
[2023-01-18] MEDS: PANTOprazole 40 MG TAB PO SCH (09:15)
[2023-01-18] MEDS: allopurinoL 100 MG TAB PO SCH (09:15)
[2023-01-18 10:55] LABS: Appearance Urine Clear (Clear); Bacteria Urine Automated Negative (Negative); Bilirubin Urine Negative (Negative); Blood Urine Negative (Negative); Color Urine Yellow; Epithelial Cell Urine Auto 0-5 /lpf (0-5); Glucose Urine UA Negative (Negative); Ketones Urine Negative (Negative); Leukocyte Esterase Urine Negative (Negative); Nitrite Urine Negative (Negative); Protein Urine Trace (Negative); RBC Urine Automated 0-4 /hpf (0-4); Specific Gravity Urine 1.011 (1.000-1.030); Urobilinogen Urine Negative (Negative)
--- NOTE | 2023-01-18 12:26 | Electrocardiogram Report ---
Test Reason : Blood Pressure : / mmHG Vent. Rate : 093 BPM Atrial Rate : 093 BPM P-R Int : 194 ms QRS Dur : 082 ms QT Int : 342 ms P-R-T Axes : 050 006 069 degrees QTc Int : 425 ms Poor data quality, interpretation may be adversely affected Normal sinus rhythm Normal ECG When compared with ECG of 09-DEC-2022 20:05, No significant change was found Confirmed by Neil Browne ([id number]) on 01/18/2023 12:25:50 PM Referred By: REFERRED SELF Confirmed By:Neil Browne
[2023-01-18] MEDS: ACETAMINOPHEN 325 MG TAB PO PRN (14:02)
[2023-01-18] MEDS: RIVAROXABAN 20 MG TAB PO SCH (16:09)
--- NOTE | 2023-01-18 16:47 | Hospitalist Progress Note ---
Date of Service January 18, 2023 Assessment & Plan (1) Wound infection: Plan: 42yo male with history of chronic wounds presenting with concern for early sepsis - flushed, blurry vision, nausea, generalized weakness following a wound debridement today. Patient with recent wound culture 01/10/23 positive for olson- sensitive Pseudomonas. He has been using topical Gentamicin ointment which he feels has not been improving his wound. He is presently afebrile, was Tmax 38.3 at 23:43, HD stable and nontoxic in appearance. He did have leukocytosis with WBC=14.45-->9.97 that appears to have responded to Cipro -most likely was septic on admission and thus will change status to admit -Follow cultures sent from ER, neg to date -Wound care daily and as needed -Ciprofloxacin 400mg IV BID -IVF stopped (2) Chronic kidney disease with symptom management only, stage 4 (severe): Plan: BUN/Cr baseline appears to be 15/1.65, admit 29/2.12-->24/1.73 -Avoid nephrotoxic agents -Renal dosing where needed -Monitor BUN, Cr and electrolytes -Continue Calcitriol qM/W/F Present on Admission?: Yes (3) Hypertension: Plan: Chronic. Well controlled at present 124/72 -Hold Lisinopril for now -Monitor BP (4) GERD (gastroesophageal reflux disease): Plan: Chronic. Stable. Patient with history of UGIB, esophagitis -Continue Protonix 40mg po daily (5) DVT (deep venous thrombosis): Plan: History of DVT -Continue Rivaroxaban F/E/N - LR at 125ml/hr x 2 liters, monitor electrolytes, heart healthy diet as tolerated Ppx - On Rivaroxaban Code - Full Dispo - Observation to medical Admission and Anticipated Discharge Date Admission Date: January 17, 2023 Subjective Having a lot of leg pain, requesting something stronger than Tylenol Review of Systems Constitutional: no fever Ear, Nose, Mouth, Throat: nl Respiratory: no symptoms Cardiovascular: Additional Comments: no chest pain Musculoskeletal: wound left medial lower leg Physical Exam Physical Exam: WDWN WM in NAD Constitutional: WD/WN, vitals as above ENMT: external ear and nose normal, oropharynx normal Neck: trachea midline, no thyromegaly Respiratory: normal respiratory effort, lungs clear to auscultation Cardiovascular: RRR, no murmur, no edema Gastrointestinal (Abdomen): normal bowel sounds, soft, nontender, no hepatosplenomegaly Musculoskeletal: left medial leg adjacent to medial malleolus evidence of surgical debridement of wound Neurologic: PERRL, EOMI, accommodation nl, no face palsy, no dysarthria Results & Data Results & Data Vital Signs (Past 12 Hours) Vital Signs Temp Pulse Resp BP Pulse Ox O2 Del Method 01/18/23 14:51 36.7 C 88 18 124/72 99 Room Air 01/18/23 08:20 36.9 C 89 18 106/65 97 Room Air PG Care Time/CCT Total # of Minutes Spent Total Time Spent with Patient: Total time spent is greater than 50% in coordination of care (as documented) at patient's floor/unit and/or counseling patient: Coding Level of Care Code 79538 SUB INP/OBS CARE 2/35MIN Diagnoses Wound infection T14.8XXA; L08.9 Chronic kidney disease with symptom management only, stage 4 (severe) N18.4 Hypertension I10 Hypertension type: unspecified GERD (gastroesophageal reflux disease) K21.9 DVT (deep venous thrombosis) I82.409 (3) Hypertension Hypertension type: unspecified Qualified Code(s): I10 - Essential (primary) hypertension
[2023-01-18] MEDS: traMADol HCL 50 MG TABLET PO PRN ×2 (17:04→20:57)
[2023-01-19] MEDS: CIPROFLOXACIN / D5W 400 MG/200 ML BAG IV SCH ×2 (01:31→13:40)
[2023-01-19] MEDS: traMADol HCL 50 MG TABLET PO PRN ×3 (01:35→21:25)
[2023-01-19] MEDS: ACETAMINOPHEN 325 MG TAB PO PRN ×3 (01:35→21:26)
[2023-01-19 07:14] LABS: Basophils # (auto) 0.05 K/uL (0-0.2); Basophils % (auto) 0.6 %; Eosinophils # (auto) 0.52 K/uL (0-0.50); Hemoglobin 10.4 g/dl (14.0-18.0); Immature Granulocytes # (auto) 0.02 K/uL (0.01-0.20); Immature Granulocytes % (auto) 0.2 %; Lymphocytes # (auto) 2.15 K/uL (1.2-3.4); Lymphocytes % (auto) 24.7 %; Mean Corpuscular Hemoglobin 33.5 pg (25.0-34.0); Mean Corpuscular Hgb Conc 33.5 g/dL (32.0-36.0); Mean Platelet Volume 9.1 fL (9.4-12.4); Monocytes % (auto) 9.2 %; Neutrophils # (auto) 5.16 K/uL (1.40-6.50); Neutrophils % (auto) 59.3 %; Platelet Count 213 K/uL (130-400); RDW Coefficient of Variation 13.2 % (11.5-14.5); RDW Standard Deviation 48.4 fL (36.4-46.3)
[2023-01-19 07:32] LABS: BUN Creatinine Ratio 13.5 (10-20); Est GFR (African American) 58.5 ml/min; Est GFR (Non-African American) 50.5 ml/min; Potassium 4.1 mmol/L (3.5-5.1)
[2023-01-19] MEDS: allopurinoL 100 MG TAB PO SCH (08:47)
[2023-01-19] MEDS: PANTOprazole 40 MG TAB PO SCH (08:47)
--- NOTE | 2023-01-19 16:33 | Hospitalist Progress Note ---
Date of Service January 19, 2023 Assessment & Plan (1) Wound infection: Plan: 42yo male with history of chronic wounds presenting with concern for early sepsis - flushed, blurry vision, nausea, generalized weakness following a wound debridement today. Patient with recent wound culture 01/10/23 positive for olson- sensitive Pseudomonas. He has been using topical Gentamicin ointment which he feels has not been improving his wound. He is presently afebrile, was Tmax 38.3 on 01/17 at 23:43, HD stable and nontoxic in appearance. He did have leukocytosis with WBC=14.45-->9.97-->8.7k, ESR 51 that appears to have responded to Cipro -most likely was septic on admission and thus will change status to admit -Follow cultures sent from ER, neg to date -Wound care daily and as needed -Ciprofloxacin 400mg IV BID -IVF stopped Wound cx on 01/10 demonstrated Pseudomonas, blood cx since admission are neg. On appearance of wound does not look like an active infection, but presentation was typical for possible transient bacteremia associated with the debridement. Wound care consult for AM, topical care of wound. Recheck labs in AM. If labs continue to look good, decrease in ESR and wound continues to show absence of active infectious changes, potential dc to follow (2) Chronic kidney disease with symptom management only, stage 4 (severe): Plan: BUN/Cr baseline appears to be 15/1.65, admit 29/2.12-->24/1.73-->22/1.63 -Avoid nephrotoxic agents -Renal dosing where needed -Monitor BUN, Cr and electrolytes -Continue Calcitriol qM/W/F (3) Hypertension: Plan: Chronic. Well controlled at present 106/67 -Hold Lisinopril for now -Monitor BP (4) GERD (gastroesophageal reflux disease): Plan: Chronic. Stable. Patient with history of UGIB, esophagitis -Continue Protonix 40mg po daily (5) DVT (deep venous thrombosis): Plan: History of DVT -Continue Rivaroxaban F/E/N - LR at 125ml/hr x 2 liters, monitor electrolytes, heart healthy diet as tolerated Ppx - On Rivaroxaban Code - Full Dispo - Observation to medical Admission and Anticipated Discharge Date Admission Date: January 18, 2023 Subjective Leg pain is better, states Tramadol generally works well Review of Systems Constitutional: no fever Ear, Nose, Mouth, Throat: nl Respiratory: no symptoms Cardiovascular: Additional Comments: no chest pain Musculoskeletal: wound left medial lower leg Physical Exam Physical Exam: WDWN WM in NAD Constitutional: WD/WN, vitals as above ENMT: external ear and nose normal, oropharynx normal Neck: trachea midline, no thyromegaly Respiratory: normal respiratory effort, lungs clear to auscultation Cardiovascular: RRR, no murmur, no edema Gastrointestinal (Abdomen): normal bowel sounds, soft, nontender, no hepatosplenomegaly Musculoskeletal: left medial leg adjacent to medial malleolus evidence of surgical debridement of wound, no redness or streaking about the surgical wound site Neurologic: PERRL, EOMI, accommodation nl, no face palsy, no dysarthria Results & Data Results & Data Vital Signs (Past 12 Hours) Vital Signs Temp Pulse Resp BP Pulse Ox O2 Del Method 01/19/23 15:52 36.8 C 76 18 106/67 97 Room Air 01/19/23 07:40 36.7 C 77 18 95/64 L 97 Room Air PG Care Time/CCT Total # of Minutes Spent Total Time Spent with Patient: Total time spent is greater than 50% in coordination of care (as documented) at patient's floor/unit and/or counseling patient: Coding Level of Care Code 63686 SUB INP/OBS CARE 2/35MIN Diagnoses Wound infection T14.8XXA; L08.9 Chronic kidney disease with symptom management only, stage 4 (severe) N18.4 Hypertension I10 Hypertension type: unspecified GERD (gastroesophageal reflux disease) K21.9 DVT (deep venous thrombosis) I82.409 (3) Hypertension Hypertension type: unspecified Qualified Code(s): I10 - Essential (primary) hypertension
[2023-01-19] MEDS: RIVAROXABAN 20 MG TAB PO SCH (17:29)
[2023-01-20] MEDS: CIPROFLOXACIN / D5W 400 MG/200 ML BAG IV SCH ×2 (00:38→12:55)
[2023-01-20] MEDS: CALCITRIOL 0.25 MCG CAPSULE PO SCH (09:10)
[2023-01-20] MEDS: allopurinoL 100 MG TAB PO SCH (09:12)
[2023-01-20] MEDS: PANTOprazole 40 MG TAB PO SCH (09:12)
[2023-01-20 09:16] LABS: Basophils # (auto) 0.04 K/uL (0-0.2); Basophils % (auto) 0.5 %; Eosinophils # (auto) 0.81 K/uL (0-0.50); Eosinophils % (auto) 9.4 %; Hematocrit (blood only) 34.2 % (42.0-52.0); Hemoglobin 11.4 g/dl (14.0-18.0); Immature Granulocytes # (auto) 0.03 K/uL (0.01-0.20); Immature Granulocytes % (auto) 0.3 %; Lymphocytes % (auto) 19.8 %; Mean Corpuscular Hemoglobin 33.5 pg (25.0-34.0); Mean Corpuscular Hgb Conc 33.3 g/dL (32.0-36.0); Mean Corpuscular Volume 100.6 fL (80.0-100.0); Mean Platelet Volume 9.2 fL (9.4-12.4); Neutrophils # (auto) 5.41 K/uL (1.40-6.50); Platelet Count 251 K/uL (130-400); RDW Coefficient of Variation 12.9 % (11.5-14.5); RDW Standard Deviation 47.8 fL (36.4-46.3); White Blood Count 8.59 K/ul (4.8-10.8)
[2023-01-20] MEDS: ACETAMINOPHEN 325 MG TAB PO PRN ×2 (09:16→16:23)
[2023-01-20] MEDS: traMADol HCL 50 MG TABLET PO PRN ×2 (09:18→16:24)
[2023-01-20 09:48] LABS: Calcium 9.3 mg/dl (8.6-10.3); Creatinine Clr Calc Pharmacy 69.3 ml/min; Est GFR (African American) 56.8 ml/min; Potassium 4.1 mmol/L (3.5-5.1)
[2023-01-20] MEDS: RIVAROXABAN 20 MG TAB PO SCH (17:23)
[2023-01-20] MEDS: ACETAMINOPHEN 325 MG TAB PO SCH (18:14)
--- NOTE | 2023-01-20 20:13 | XRay Report ---
XR ankle LT min 3V routine HISTORY: 42 years-old Male left ankle wound acute pain of the left ankle and toes. Chronic soft tiss ue wound. COMPARISON: Left foot radiographs 11/06/2022 TECHNIQUE: 3 views of the left ankle. FINDINGS: Moderate to severe joint space narrowing of the talonavicular joint with talar beaking redemonstrated . Small calcaneal enthesophytes. Demineralized appearance of the bones. No acute fracture, dislocatio n, osteochondral defect or osseous erosion. Arterial calcifications. Demineralized appearance of the bones. Diffuse soft tissue swelling. Suggestion of a medial soft tissue ulcer. IMPRESSION: 1. Soft tissue swelling without acute osseous abnormality. 2. Chronic findings as above. ACT 112: Negative or not required by law. The above report was generated using voice recognition software. It may contain grammatical, syntax o r spelling errors. Electronically signed by: Kahlil Fisher M.D. 01/20/2023 8:12 PM
--- NOTE | 2023-01-20 20:15 | XRay Report ---
XR toe(s) LT min 2V HISTORY: 42 years-old Male toe pain acute pain of the left forefoot COMPARISON: Left foot radiographs 11/06/2022 TECHNIQUE: 3 views of the left toes FINDINGS: Demineralized appearance of the bones. Partial collapse of the navicular bone is chronic. Unchanged m oderate to severe joint space narrowing of the talonavicular joint. Additional mostly mild multifocal osteoarthritis. No acute fracture, dislocation or new osseous erosion. IMPRESSION: No acute osseous abnormality. ACT 112: Negative or not required by law. The above report was generated using voice recognition software. It may contain grammatical, syntax o r spelling errors. Electronically signed by: Kahlil Fisher M.D. 01/20/2023 8:14 PM
--- NOTE | 2023-01-20 21:16 | Hospitalist Progress Note ---
Date of Service January 20, 2023 Assessment & Plan (1) Wound infection: Plan: 42yo male with history of chronic wounds presenting with concern for early sepsis - flushed, blurry vision, nausea, generalized weakness following a wound debridement today. Patient with recent wound culture 01/10/23 positive for olson- sensitive Pseudomonas. He has been using topical Gentamicin ointment which he feels has not been improving his wound. He is presently afebrile, was Tmax 38.3 on 01/17 at 23:43, HD stable and nontoxic in appearance. He did have leukocytosis with WBC=14.45-->9.97-->8.7k, ESR 51 that appears to have responded to Cipro -most likely was septic on admission and thus will change status to admit -Follow cultures sent from ER, neg to date -Wound care daily and as needed -Ciprofloxacin 400mg IV BID -IVF stopped Wound cx on 01/10 demonstrated Pseudomonas, blood cx since admission are neg. On appearance of wound does not look like an active infection, but presentation was typical for possible transient bacteremia associated with the debridement. Wound care consult for AM, topical care of wound. Recheck labs in AM. If labs continue to look good, decrease in ESR and wound continues to show absence of active infectious changes, potential dc to follow due to worsening pain on 01/20 will recheck levels in AM (2) Chronic kidney disease with symptom management only, stage 4 (severe): Plan: BUN/Cr baseline appears to be 15/1.65, admit 29/2.12-->24/1.73-->22/1.63 -Avoid nephrotoxic agents -Renal dosing where needed -Monitor BUN, Cr and electrolytes -Continue Calcitriol qM/W/F (3) Hypertension: Plan: Chronic. Well controlled at present 106/67 -Hold Lisinopril for now -Monitor BP (4) GERD (gastroesophageal reflux disease): Plan: Chronic. Stable. Patient with history of UGIB, esophagitis -Continue Protonix 40mg po daily (5) DVT (deep venous thrombosis): Plan: History of DVT -Continue Rivaroxaban F/E/N - LR at 125ml/hr x 2 liters, monitor electrolytes, heart healthy diet as tolerated Ppx - On Rivaroxaban Code - Full Dispo - Observation to medical Admission and Anticipated Discharge Date Admission Date: January 18, 2023 Subjective Patient having pain in his left toes. Review of Systems Review of Systems: All systems reviewed & are unremarkable except as noted in HPI & below Physical Exam Physical Exam: WDWN WM in NAD Constitutional: WD/WN, vitals as above ENMT: external ear and nose normal, oropharynx normal Neck: trachea midline, no thyromegaly Respiratory: normal respiratory effort, lungs clear to auscultation Cardiovascular: RRR, no murmur, no edema Gastrointestinal (Abdomen): normal bowel sounds, soft, nontender, no hepatosplenomegaly Neurologic: PERRL, EOMI, accommodation nl, no face palsy, no dysarthria Results & Data Results & Data Vital Signs (Past 12 Hours) Vital Signs Temp Pulse Resp BP Pulse Ox O2 Del Method 01/20/23 15:03 36.5 C 81 16 100/64 100 Room Air PG Care Time/CCT Total # of Minutes Spent Total Time Spent with Patient: Total time spent is greater than 50% in coordination of care (as documented) at patient's floor/unit and/or counseling patient: Coding Level of Care Code 91369 SUB INP/OBS CARE 2/35MIN Diagnoses Wound infection T14.8XXA; L08.9 Chronic kidney disease with symptom management only, stage 4 (severe) N18.4 Hypertension I10 Hypertension type: unspecified GERD (gastroesophageal reflux disease) K21.9 DVT (deep venous thrombosis) I82.409 (3) Hypertension Hypertension type: unspecified Qualified Code(s): I10 - Essential (primary) hypertension
[2023-01-20] MEDS: oxyCODONE HCL IR 5 MG TAB (IMMEDIATE RELEASE) PO PRN (21:27)
[2023-01-21] MEDS: CIPROFLOXACIN / D5W 400 MG/200 ML BAG IV SCH ×2 (01:00→13:02)
[2023-01-21] MEDS: ACETAMINOPHEN 325 MG TAB PO SCH ×4 (01:00→17:42)
[2023-01-21 07:32] LABS: Hematocrit (blood only) 35.8 % (42.0-52.0); Hemoglobin 11.7 g/dl (14.0-18.0); Mean Corpuscular Hemoglobin 32.4 pg (25.0-34.0); Mean Corpuscular Hgb Conc 32.7 g/dL (32.0-36.0); Mean Corpuscular Volume 99.2 fL (80.0-100.0); Platelet Count 277 K/uL (130-400); RDW Coefficient of Variation 12.5 % (11.5-14.5); RDW Standard Deviation 46.1 fL (36.4-46.3); Red Blood Count 3.61 M/uL (4.70-6.10); White Blood Count 7.11 K/ul (4.8-10.8)
[2023-01-21 08:12] LABS: C Reactive Protein 4.52 mg/dl (0-0.5); Calcium 9.5 mg/dl (8.6-10.3); Creatinine Clr Calc Pharmacy 70.6 ml/min; Est GFR (African American) 58.1 ml/min; Est GFR (Non-African American) 50.1 ml/min; Potassium 4.4 mmol/L (3.5-5.1)
[2023-01-21] MEDS: allopurinoL 100 MG TAB PO SCH (08:15)
[2023-01-21] MEDS: PANTOprazole 40 MG TAB PO SCH (08:15)
[2023-01-21] MEDS: oxyCODONE HCL IR 5 MG TAB (IMMEDIATE RELEASE) PO PRN ×2 (08:15→17:44)
[2023-01-21] MEDS ORDERED: GADOBUTROL 65ML VIAL IV ONE (12:16)
--- NOTE | 2023-01-21 14:08 | Magnetic Resonance Report ---
MRI OF THE LEFT FOOT COMBO; MRI OF THE LEFT ANKLE COMBO CLINICAL HISTORY: Medial foot and ankle wound. Infection. COMPARISON STUDY: Radiographs of the left foot dated 11/06/2022. Radiographs of the left ankle dated . MRI of left foot dated 03/22/2022. TECHNIQUE: MRI of the left foot and MRI of the left ankle are performed utilizing various T1 and T2-w eighted sequences in the axial, sagittal, and coronal planes. Contrast enhanced sequences were acquir ed following the IV administration of 9 cc of Gadavist. The examinations are modestly degraded by mot ion artifact. FINDINGS: There is no marrow abnormality or bony erosion identified throughout the left foot or ankle to suggest osteomyelitis. Foci of typically degenerative marrow edema are seen throughout the foot, greatest at the talonavicular articulation. The Achilles tendon is normal in appearance. The anterior , posterior, and peroneal ankle tendons are intact. There is tenosynovitis of the tibialis posterior. The ankle mortise is maintained. There is no osteochondral defect in the talar dome. A small ankle j oint effusion is noted. There is normal fat maintained within the sinus tarsi. The plantar fascia is normal in appearance. There are markers along the dorsal aspect of the second and third toes, left po ssible tiny wounds. There is mild subcutaneous soft tissue edema at these sites with nonspecific enha ncement. No organized fluid collection is seen to indicate abscess. Moderate soft tissue edema is see n throughout the ankle and hindfoot. The flexor and extensor tendons in the foot appear intact. The a nterior tibiofibular and talofibular ligaments appear intact. The deltoid ligament is preserved. IMPRESSION: 1. There is no MRI evidence of osteomyelitis involving the left foot or ankle. 2. Arthritic change as above. 3. Tiny wounds are suggested along the dorsal aspect of the second and third toes at the sites of int erest. 4. There is evidence of cellulitis in the forefoot. 4. No organized/drainable fluid collection is seen in the foot or ankle to suggest abscess. 5. There is tenosynovitis of the tibialis posterior tendon. Dictated: 01/21/2023 1:15 PM Transcribed: 01/21/2023 1:55 PM Krystal [id number] Electronically signed by: Cuco Ramos M.D. 01/21/2023 2:07 PM
[2023-01-21] MEDS: RIVAROXABAN 20 MG TAB PO SCH (16:08)
--- NOTE | 2023-01-21 22:37 | Hospitalist Progress Note ---
Date of Service January 21, 2023 Assessment & Plan (1) Wound infection: Plan: 42yo male with history of chronic wounds presenting with concern for early sepsis - flushed, blurry vision, nausea, generalized weakness following a wound debridement today. Patient with recent wound culture 01/10/23 positive for olson- sensitive Pseudomonas. He has been using topical Gentamicin ointment which he feels has not been improving his wound. He is presently afebrile, was Tmax 38.3 on 01/17 at 23:43, HD stable and nontoxic in appearance. He did have leukocytosis with WBC=14.45-->9.97-->8.7k, ESR 51 that appears to have responded to Cipro -most likely was septic on admission and thus will change status to admit -Follow cultures sent from ER, neg to date -Wound care daily and as needed -Ciprofloxacin 400mg IV BID -IVF stopped Wound cx on 01/10 demonstrated Pseudomonas, blood cx since admission are neg. On appearance of wound does not look like an active infection, but presentation was typical for possible transient bacteremia associated with the debridement. Wound care consult for AM, topical care of wound. Recheck labs in AM. If labs continue to look good, decrease in ESR and wound continues to show absence of active infectious changes, potential dc to follow due to worsening pain on 01/20 Given his elevated inflammatory markers, will order an MRI of his ankle and left foot. Update: MRI showed tenosynovitis, will consult ortho. (2) Chronic kidney disease with symptom management only, stage 4 (severe): Plan: BUN/Cr baseline appears to be 15/1.65, admit 29/2.12-->24/1.73-->22/1.63 -Avoid nephrotoxic agents -Renal dosing where needed -Monitor BUN, Cr and electrolytes -Continue Calcitriol qM/W/F (3) Hypertension: Plan: Chronic. Well controlled at present 106/67 -Hold Lisinopril for now -Monitor BP (4) GERD (gastroesophageal reflux disease): Plan: Chronic. Stable. Patient with history of UGIB, esophagitis -Continue Protonix 40mg po daily (5) DVT (deep venous thrombosis): Plan: History of DVT -Continue Rivaroxaban F/E/N - LR at 125ml/hr x 2 liters, monitor electrolytes, heart healthy diet as tolerated Ppx - On Rivaroxaban Code - Full Dispo - Observation to medical Admission and Anticipated Discharge Date Admission Date: January 18, 2023 Subjective 42 yo male reports no new symptoms. Review of Systems Review of Systems: All systems reviewed & are unremarkable except as noted in HPI & below Physical Exam Physical Exam: WDWN WM in NAD Constitutional: WD/WN, vitals as above ENMT: external ear and nose normal, oropharynx normal Neck: trachea midline, no thyromegaly Respiratory: normal respiratory effort, lungs clear to auscultation Cardiovascular: RRR, no murmur, no edema Gastrointestinal (Abdomen): normal bowel sounds, soft, nontender, no hepatosplenomegaly Neurologic: PERRL, EOMI, accommodation nl, no face palsy, no dysarthria Results & Data Results & Data Vital Signs (Past 12 Hours) Vital Signs Temp Pulse Resp BP Pulse Ox O2 Del Method 01/21/23 21:30 36.3 C L 75 16 110/68 98 Room Air 01/21/23 15:56 36.4 C L 77 18 115/78 99 Room Air PG Care Time/CCT Total # of Minutes Spent Total Time Spent with Patient: Total time spent is greater than 50% in coordination of care (as documented) at patient's floor/unit and/or counseling patient: Coding Level of Care Code 56378 SUB INP/OBS CARE 2/35MIN Diagnoses Wound infection T14.8XXA; L08.9 Chronic kidney disease with symptom management only, stage 4 (severe) N18.4 Hypertension I10 Hypertension type: unspecified GERD (gastroesophageal reflux disease) K21.9 DVT (deep venous thrombosis) I82.409 (3) Hypertension Hypertension type: unspecified Qualified Code(s): I10 - Essential (primary) hypertension
[2023-01-22] MEDS: CIPROFLOXACIN / D5W 400 MG/200 ML BAG IV SCH ×2 (00:57→13:35)
[2023-01-22] MEDS: ACETAMINOPHEN 325 MG TAB PO SCH ×4 (00:57→21:01)
[2023-01-22] MEDS: oxyCODONE HCL IR 5 MG TAB (IMMEDIATE RELEASE) PO PRN ×2 (05:41→17:44)
[2023-01-22] MEDS: PANTOprazole 40 MG TAB PO SCH (08:09)
[2023-01-22] MEDS: CALCITRIOL 0.25 MCG CAPSULE PO SCH (08:09)
[2023-01-22] MEDS: allopurinoL 100 MG TAB PO SCH (08:09)
[2023-01-22 08:28] LABS: Hematocrit (blood only) 35.8 % (42.0-52.0); Hemoglobin 11.7 g/dl (14.0-18.0); Mean Corpuscular Hemoglobin 32.8 pg (25.0-34.0); Mean Corpuscular Hgb Conc 32.7 g/dL (32.0-36.0); Mean Corpuscular Volume 100.3 fL (80.0-100.0); Platelet Count 278 K/uL (130-400); RDW Coefficient of Variation 12.6 % (11.5-14.5); RDW Standard Deviation 47.3 fL (36.4-46.3); Red Blood Count 3.57 M/uL (4.70-6.10); White Blood Count 5.93 K/ul (4.8-10.8)
[2023-01-22 09:18] LABS: BUN Creatinine Ratio 13.6 (10-20); C Reactive Protein 2.41 mg/dl (0-0.5); Calcium 9.7 mg/dl (8.6-10.3); Creatinine Clr Calc Pharmacy 56.2 ml/min; Est GFR (African American) 44.1 ml/min; Potassium 4.3 mmol/L (3.5-5.1)
[2023-01-22] MEDS: traMADol HCL 50 MG TABLET PO PRN (13:10)
--- NOTE | 2023-01-22 14:58 | Consultation Report ---
DATE OF CONSULTATION: 01/22/2023. HISTORY OF PRESENT ILLNESS: This is a 42-year-old gentleman seen at request of Dr. Villa and Dr. Vijaya Hernandez for admission, which occurred on 01/17/2023, the patient had concerns for early sepsis, flushed skin, blurry vision, nausea and generalized weakness following a wound debridement at the wound clinic. He had a recent wound culture, 01/10/2023, which was positive for pansensitive Pseudomonas. He has been using topical gentamicin ointment without much improvement. He presented with leukocytosis with a white blood count of 14.45. He was then transitioned to ciprofloxacin 400 mg IV b.i.d. Since several days on IV antibiotics, then medicine team decided to consult orthopedics. This was after an MRI revealed mild tenosynovitis of the posterior tibial tendon. After discussion with the patient, he notes that his symptoms are improving while on IV Cipro. He has been seen by the wound care team and had a new left lower leg wrap applied by Lary Perez yesterday, that is 01/21/2023. Overall, he feels improved and his constitutional symptoms of blurriness and flushing with nausea has resolved at this time. PAST MEDICAL HISTORY: Acute pancreatitis, alcohol use disorder, anemia, chronic kidney disease with stage IV, chronic venous insufficiency, history of DVT, chronic, on Xarelto, coagulopathy, elevated lipase, esophagitis, hematemesis, hypertension, hypokalemia, mitral valve prolapse with moderate mitral regurg, osteomyelitis of left foot and ankle, portal vein thrombosis, pseudocyst of the pancreas, hyperparathyroidism, renal, vitamin D deficiency, vomiting. PAST SURGICAL HISTORY: Left foot surgery and right foot surgery for clearance of abscess and infection, status post vascular surgery. History of left kidney biopsy. ALLERGIES: CEPHALEXIN MILD WITH A RASH. MEDICATIONS: Pantoprazole, calcitriol, Xarelto, allopurinol, lisinopril and gentamicin topical. SOCIAL HISTORY: Denies tobacco use. Denies current alcohol use. He is recovering alcoholic. Denies drug use. He is engaged and lives with his fiancee and children. Currently works at [employer]. PHYSICAL EXAMINATION: This is a 42-year-old gentleman, lying supine in hospital room bed, eating lunch. He is alert and oriented x3. Speech clear and fluent. Affect is appropriate. Answers questions appropriately. Examination of the left lower extremity demonstrates a compression wrap similar to an Unna Boot with Coban. The wrap was then cut with scissors anteriorly noting medial-sided ankle ulceration measuring 4.0 cm x 2.5 cm x 0.4 cm in depth with periwound slough discharge, drainage. No foul odor. There is some granulation approximately 20-30%. There appears to be a transudate covered with Aquacel. This is also left second toe dorsal ulceration adjacent to the proximal interphalangeal joint measuring 1.0 cm x 1.0 cm x 0.3 cm depth with some periwound slough and fibrin. This was covered with Aquacel, which was removed to view. Also third toe dorsal ulcer measuring 1.0 x 0.5 cm with some eschar and periwound slough. No discharge noted to the third toe. There is tenderness, which is mild of the posterior tibial tendon, however, it was difficult to assess as this is directly deep to the medial ankle ulcer. The appears to be no break down into the fatty layer. There is no exposed tendon or tendon sheath at the ulcer site. Chronic mild edema is present throughout the left lower extremity. Multiple venous stasis skin changes are evident. Chronic venous insufficiency is also evident with edema noted. Sensation is slightly diminished bilateral feet, particularly from the mid foot distally. There is no specific tenderness over the talonavicular joint on the left compared to the right. Pulses are palpable. Feet are warm. Range of motion of the ankle slightly limited due to the wrap on the left compared to the right; however, appears to be symmetric. He has chronic fixed hammertoe contractions bilateral feet. Laboratories were reviewed, noting elevated white count is improving as well as imaging studies including ankle MRI and foot MRI. On the MRI, of note, there is no evidence of drainable fluid collection or abscess. There are soft tissue changes noted to the toes and the medial left ankle. There is some mild tenosynovitis noted at the posterior tibial tendon. There is no sinus tract and no connection obvious between the posterior tibial tendon and the surface tissue in the left ankle. There are arthritic changes noted with increased signal spurring, loss of joint space, marginal osteophytes on the radiographs as well as the MRIs present. IMPRESSION: 1. Left medial ankle, 4.0 cm x 2.5 cm x 0.4 cm left medial ankle ulcer. 2. Left dorsal second toe ulcer measuring 1.0 cm x 1.0 x 0.3 cm. 3. Left third toe dorsal ulcer measuring 1.0 cm x 0.5 cm with immature eschar. 4. Left posterior tibial tenosynovitis without evidence of abscess or surface tissue connection. 5. Talonavicular osteoarthritis. 6. Chronic venous stasis. 7. History of deep venous thrombosis. RECOMMENDATION: This is a nonsurgical candidate at this time. Continue with wound care services, IV antibiotics and observation. Should the patient continue to have chronic medial ankle wound, he may be a candidate for irrigation and debridement and possible skin grafting with skin graft substitute versus split-thickness skin graft from the thigh. He may follow up as an outpatient with Dr. Ghosh as necessary. Thank you for the opportunity to consult in the care of this patient, Jose A Ghosh DO [facility] orthopedic [place] Job ID: [id number] [facility]
[2023-01-22] MEDS: RIVAROXABAN 20 MG TAB PO SCH (17:42)
--- NOTE | 2023-01-22 23:00 | Hospitalist Progress Note ---
Date of Service January 22, 2023 Assessment & Plan (1) Wound infection: Plan: 42yo male with history of chronic wounds presenting with concern for early sepsis - flushed, blurry vision, nausea, generalized weakness following a wound debridement today. Patient with recent wound culture 01/10/23 positive for olson- sensitive Pseudomonas. He has been using topical Gentamicin ointment which he feels has not been improving his wound. He is presently afebrile, was Tmax 38.3 on 01/17 at 23:43, HD stable and nontoxic in appearance. He did have leukocytosis with WBC=14.45-->9.97-->8.7k, ESR 51 that appears to have responded to Cipro -most likely was septic on admission and thus will change status to admit -Follow cultures sent from ER, neg to date -Wound care daily and as needed -Ciprofloxacin 400mg IV BID -IVF stopped Wound cx on 01/10 demonstrated Pseudomonas, blood cx since admission are neg. On appearance of wound does not look like an active infection, but presentation was typical for possible transient bacteremia associated with the debridement. Wound care consult for AM, topical care of wound. Recheck labs in AM. If labs continue to look good, decrease in ESR and wound continues to show absence of active infectious changes, potential dc to follow due to worsening pain on 01/20 Given his elevated inflammatory markers, MRI of his ankle and left foot completed MRI showed tenosynovitis, consulted ortho. No intervention required. Patient may be a candidate for disability as each time he returns to work, his wound in his foot gets worse. Perhaps temporary disability until he is fully healed. will defer to his PCP or wound care. Patient will have dressing change on 01/23 with anticipated discharge. Patient will likely require a longer course of ciprofloxacin until wound heals, at least 2 weeks, continue to next appointment, will defer further antibiotics to wound care clinic. In regards to his pain on his toes, MRI reports no abscess or structural abnormalities that may cause pain. Perhaps neuropathy, or referred pain from wound. Appreciate input from Dr. Ghosh (2) Chronic kidney disease with symptom management only, stage 4 (severe): Plan: BUN/Cr baseline appears to be 15/1.65, admit 29/2.12-->24/1.73-->22/1.63 -Avoid nephrotoxic agents -Renal dosing where needed -Monitor BUN, Cr and electrolytes -Continue Calcitriol qM/W/F (3) Hypertension: Plan: Chronic. Well controlled -Monitor BP (4) GERD (gastroesophageal reflux disease): Plan: Chronic. Stable. Patient with history of UGIB, esophagitis -Continue Protonix 40mg po daily (5) DVT (deep venous thrombosis): Plan: History of DVT -Continue Rivaroxaban Possible discharge on 01/23 Admission and Anticipated Discharge Date Admission Date: January 18, 2023 Subjective Patient reports no new symptoms. He continues to have pain on his toes Review of Systems Review of Systems: All systems reviewed & are unremarkable except as noted in HPI & below Physical Exam Physical Exam: WDWN WM in NAD Constitutional: WD/WN, vitals as above ENMT: external ear and nose normal, oropharynx normal Neck: trachea midline, no thyromegaly Respiratory: normal respiratory effort, lungs clear to auscultation Cardiovascular: RRR, no murmur, no edema Gastrointestinal (Abdomen): normal bowel sounds, soft, nontender, no hepatosp lenomegaly Neurologic: PERRL, EOMI, accommodation nl, no face palsy, no dysarthria Results & Data Results & Data Vital Signs (Past 12 Hours) Vital Signs Temp Pulse Resp BP Pulse Ox O2 Del Method 01/22/23 19:56 36.7 C 84 18 114/65 100 Room Air 01/22/23 16:00 36.9 C 80 16 121/76 100 Room Air PG Care Time/CCT Total # of Minutes Spent Total Time Spent with Patient: Total time spent is greater than 50% in coordination of care (as documented) at patient's floor/unit and/or counseling patient: Coding Level of Care Code 13318 SUB INP/OBS CARE 3/50MIN Diagnoses Wound infection T14.8XXA; L08.9 Chronic kidney disease with symptom management only, stage 4 (severe) N18.4 Hypertension I10 Hypertension type: unspecified GERD (gastroesophageal reflux disease) K21.9 DVT (deep venous thrombosis) I82.409 (3) Hypertension Hypertension type: unspecified Qualified Code(s): I10 - Essential (primary) hypertension
[2023-01-23] MEDS: ACETAMINOPHEN 325 MG TAB PO SCH ×3 (05:29→13:12)
[2023-01-23] MEDS: PANTOprazole 40 MG TAB PO SCH (07:54)
[2023-01-23] MEDS: allopurinoL 100 MG TAB PO SCH (07:54)
--- NOTE | 2023-01-23 09:49 | Hospitalist Progress Note ---
Date of Service January 23, 2023 Assessment & Plan (1) Wound infection: Plan: Acute sepsis secondary to chronic LE wounds, high risk systemic symptoms- flushed, blurry vision, nausea, generalized weakness following a wound debridement 01/22/23 Patient with recent wound culture 01/10/23 positive for olson-sensitive Pseudomonas. He has been using topical Gentamicin ointment which he feels has not been improving his wound. Ciprofloxacin 400mg IV BID wound care is following Orthopedics, Dr Ghosh, did see and feels this is not an operative candidate at this time, may need future skin grafting MRI of foot and ankle 01/22/23 showed tenosynovitis, Patient will have dressing change on 01/23 with anticipated discharge. (2) Chronic kidney disease with symptom management only, stage 4 (severe): Plan: Chronic and stable -Continue Calcitriol q M/W/F (3) Hypertension: Plan: Chronic. Well controlled -Monitor BP (4) GERD (gastroesophageal reflux disease): Plan: Chronic. Stable. Patient with history of UGIB, esophagitis -Continue Protonix 40mg po daily (5) DVT (deep venous thrombosis): Plan: History of DVT, chronic stable -Continue Rivaroxaban Possible discharge on 01/23 Admission and Anticipated Discharge Date Admission Date: January 18, 2023 Results & Data Results & Data Vital Signs (Past 12 Hours) Vital Signs Temp Pulse Resp BP Pulse Ox O2 Del Method 01/23/23 07:56 97.5 F L 76 16 111/73 100 Room Air PG Care Time/CCT Total # of Minutes Spent Total Time Spent with Patient: Total time spent is greater than 50% in coordination of care (as documented) at patient's floor/unit and/or counseling patient: Coding Diagnoses Wound infection T14.8XXA; L08.9 Chronic kidney disease with symptom management only, stage 4 (severe) N18.4 Hypertension I10 Hypertension type: unspecified GERD (gastroesophageal reflux disease) K21.9 DVT (deep venous thrombosis) I82.409 (3) Hypertension Hypertension type: unspecified Qualified Code(s): I10 - Essential (primary) hypertension
[2023-01-23] MEDS: CIPROFLOXACIN / D5W 400 MG/200 ML BAG IV SCH ×2 (13:12)
--- NOTE | 2023-01-23 15:54 | Discharge Summary ---
Date of Service January 23, 2023 Admission HPI Per Admitting Provider Anthony Sharif is a 42yo male wit history of CKD, HTN, DVT and chronic LE wounds presenting with wound infection, feeling overall unwell. He reports blurry vision, feeling warm and flushed as well as generalized weakness and fatigue and near-syncope earlier today. He also reports nausea and some HUYNH. He reports feeling this way in the past when he was septic from a wound infection. Patient was seen at the wound care clinic this week and had debridement of his foot ulcers. Has venous ulcers on toes of left foot. Recent wound culture positive for Pseudomonas. Patient has been using topical gentamicin. He does not feel that the wounds are improving - increased pain and drainage. In the ER he is afebrile, HD stable, NAD ER Course: NSS, Ciproloxacin Principal Diagnosis Acute sepsis on admission secondary to chronic lower extremity wounds Possible tenosynovitis Discharge Exam Patient has a Coban dressing in place on his lower extremity. He states his pain is well controlled. Otherwise he is with regular heart rate and clear breathing Discharge Data Allergies Allergy/AdvReac Type Severity Reaction Status Date / Time cephalexin Allergy Mild Rash Verified 01/17/23 08:22 Consultations 01/17/23 21:56 ED Decision to Admit Stat 01/21/23 22:40 Consult Orthopedic Surgery Routine Ordered Studies 01/21/23 09:33 MR ankle LT wo/w con Routine MR foot LT wo/w con Routine Hospital Course (1) Wound infection: Acute sepsis secondary to chronic LE wounds, high risk systemic symptoms- flushed, blurry vision, nausea, generalized weakness following a wound debridement 01/22/23 Patient with recent wound culture 01/10/23 positive for olson-sensitive Pseudomonas. He has been using topical Gentamicin ointment which he feels has not been improving his wound. Ciprofloxacin 400mg IV BID converted to Cipro 500 twice daily for 2-week total wound care is following Orthopedics, Dr Ghosh, did see and feels this is not an operative candidate at this time, may need future skin grafting MRI of foot and ankle 01/22/23 showed tenosynovitis, Patient will have dressing change on 01/23 with discharge and outpatient follow- up at wound care center. (2) Chronic kidney disease with symptom management only, stage 4 (severe): Chronic and stable -Continue Calcitriol q M/W/F (3) Hypertension: Chronic. Well controlled -Monitor BP (4) GERD (gastroesophageal reflux disease): Chronic. Stable. Patient with history of UGIB, esophagitis -Continue Protonix 40mg po daily (5) DVT (deep venous thrombosis): History of DVT, chronic stable -Continue Rivaroxaban Total Time Total Time Spent Total Time Spent (In Minutes): It required greater than 30 minutes to prepare this patient for discharge Discharge Plan Discharge Items Patient Disposition: Home - Self-Care Reason For Visit: FOOT PAIN Discharge Diagnosis: foot infection venous stasis ulcer poa possible tenosinovitis Activity: Per Instructions section Activity Comment: elevate leg when not standing, try no to stand more than 30 minutes at a ti Non-emergency contact: Primary Care Provider and Specialist Call non-emergency contact if: your symptoms worsen Follow-up/Referrals: Jaja Cali MD [Primary Care Provider] - Diet: Low Sodium (2gm) Addtl Attending Provider Instructions: please call wound care center to arrange follow up for next week please elevated your legs when not standing and try not to stand for more than 30 minutes at a time please do complete your antibiotics and be sure to have good follow up Pending Studies at Discharge: No Stand-Alone Forms: My [employer], Smoking Cessation Medications and DC Order Prescriptions: New ciprofloxacin HCl [Cipro] 500 mg tablet 500 mg PO BID Qty: 20 0RF tramadol 50 mg tablet 50 mg PO Q8H PRN (Reason: pain) Qty: 20 0RF Continued Xarelto 20 mg tablet 20 mg PO QPM Rx Instructions: must administer with evening meal gentamicin 0.1 % ointment 1 applic topical DAILY 14 Days Qty: 30 1RF pantoprazole 40 mg tablet,delayed release (DR/EC) 40 mg PO DAILY Qty: 90 3RF allopurinol 100 mg tablet 100 mg PO DAILY Qty: 90 3RF lisinopril 20 mg tablet 40 mg PO DAILY 90 Days Qty: 180 3RF calcitriol 0.25 mcg capsule 0.25 mcg PO 3XWK Rx Instructions: TAKE THIS MED EVERY MON/WED/FRI Admission Data Admit Date/Time: 01/18/23 16:47 Attending Provider: Christos Mccurdy Admit Provider: Vijaya Hernandez Primary Care Provider: Jaja Cali Other Providers: Vijaya Hernandez ; Jose A Ghosh Coding Level of Care Code 93112 INP/OBS DISCH >30 MIN Diagnoses Wound infection T14.8XXA; L08.9 Chronic kidney disease with symptom management only, stage 4 (severe) N18.4 Hypertension I10 Hypertension type: unspecified GERD (gastroesophageal reflux disease) K21.9 DVT (deep venous thrombosis) I82.409
[2023-01-23] MEDS: RIVAROXABAN 20 MG TAB PO SCH (16:26)
== END 2023-01-23 16:55 | disposition home or self-care (01) | DRG 872 ==
LOC: 3N 16:40 → ED 16:40 → SUATTDRO 23:00 → 3N 23:43 → SUATTDRO 01-18 16:47

== ENCOUNTER 2023-03-20 14:13 | Observation (INO) ==
[2023-03-20] MEDS ORDERED: ONDANSETRON INJ 2 MG/ML 2 ML VIAL IV STA (14:23)
[2023-03-20] MEDS ORDERED: SODIUM CHLORIDE 0.9% 1000ML 2,000 ML IV ONE (14:23)
--- NOTE | 2023-03-20 14:26 | Emergency Department Note ---
Impression & Plan Pancreatic pseudocyst, Abdominal pain, acute, epigastric, Cyst of stomach ED Provider Note INFORMANT: Patient ED PROVIDER(S): Mc Cr DO CHIEF COMPLAINT: Epigastric abdominal pain PLAN: Disposition: Home Outpatient prescription management: none Discussion with: Gastroenterology MEDICAL DECISION MAKING: This is a 43-year-old male who presents to the ED with a chief complaint of epigastric abdominal pain for the past 2 days. He has history of pancreatitis both alcohol-related and gallstone related in the past. He states that he has occasional sharp pain in the left lower quadrant as well. He states that his nausea vomiting started last night. He has a appointment to see the GI specialist next Friday because of his gallstone issues and to potentially schedule him for surgery for his gallbladder [facility]. The patient has no other specific complaints at this time. His physical exam reveals mild epigastric abdominal tenderness. He has a smell of ketones on his breath. His mucous membranes are slightly dry. The patient's white blood cell count is 14.4. An EKG shows a sinus tach at a rate of 102. Chest x-ray did not show acute process. Lipase was negative for pancreatitis. Chemistry panel otherwise did not show electrolyte abnormality. A CT scan of the abdomen pelvis shows a large complex fluid collection adjacent to or within the wall of the stomach measuring 18 x 8 cm. There is also some additional findings with regards to olson creatic pseudocyst. The patient was told the results of the test. He was treated with IV fentanyl as well as IV fluids and IV Zofran. The patient will be seen by the hospitalist. I did speak with Dr. White about the patient. He recommends n.p.o. after midnight and stopping the Xarelto with plans of surgery tomorrow. Hospitalist was made aware. He was empirically given IV Zosyn. He was also treated with IV fluids and IV Zofran. IV fentanyl was given for pain. Triage Nursing notes reviewed. Vital Signs: reviewed Prior /Outside records reviewed: none Differential diagnosis: Pancreatitis, diverticulitis, gastritis, dehydration, electrolyte abnormality, other. Diagnostics, as interpreted by me: 12 lead ECG: Sinus rhythm rate of 102. No ST elevation. No PVCs. Normal QTc. Cardiac Monitoring ordered: Sinus rhythm in the 90s. Medical decision rules: none Imaging studies: Chest x-ray: No acute disease. CT scan of the abdomen pelvis: Large cyst near the stomach. Procedures: none. Critical care: none. HPI: See MDM above. PAST MEDICAL HISTORY: See Below PAST SURGICAL HISTORY: See Below SOCIAL HISTORY: See Below HOME MEDICATIONS:See Below ALLERGIES: See Below VITALS: See Below PHYSICAL EXAMINATION: See MDM for positive findings otherwise unremarkable. CONSTITUTIONAL/VITAL SIGNS: Reviewed GENERAL:done as appropriate INTEGUMENTARY: done as appropriate HEAD: done as appropriate EYES: done as appropriate RESPIRATORY: done as appropriate CARDIOVASCULAR:done as appropriate GI/ABDOMEN:done as appropriate EXTREMITIES: done as appropriate NEUROLOGICAL: done as appropriate PSYCHIATRIC:done as appropriate MUSCULOSKELETAL:done as appropriate TRIAGE NURSING DOCUMENTATION REVIEWED. Past Med/Surg History Medical History Acute pancreatitis Alcohol use disorder Anemia Chronic kidney disease with symptom management only, stage 4 (severe) Chronic venous insufficiency Coagulopathy Deep vein thrombosis 07/2018/CHRONIC- ON Xarelto Elevated lipase Encounter for pre-operative examination Encounter for pre-operative examination Esophagitis Hematemesis Hypertension Hypokalemia MVP (mitral valve prolapse) 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 ECHO Osteomyelitis of ankle or foot, left, acute Pancreatitis Pancreatitis Portal vein thrombosis Pseudocyst, pancreas Secondary hyperparathyroidism of renal origin Traumatic open wound of left lower leg Vitamin D deficiency Vomiting Surgical History Hx of biopsy LEFT KIDNEY S/P vascular surgery LLE 2/2 VENOUS INSUFFICIENCY Status post left foot surgery I and D of left foot on 08/22/21. LMA #5 Family History Mother FHx: lung cancer Hypertension Breast cancer Brother FHx: testicular cancer Hypertension Father Hypertension Unknown Myocardial infarction Social History Smoking Status: Never smoker Second Hand Exposure: No; Do You Dip or Chew Tobacco: No; Hx Alcohol Use: No Hx Substance Use: No Preferred Language: Serbian Communication Ability: Effective Visual Impairment: No Limitations Upscale Security Officer Required: No Beliefs That Will Affect Care: None marital status: Single Current Living Situation: Significant Other Current Living Situation Comment: [facility] current occupational status: unemployed How many Children do You have: 4 Feels Safe at Home: Yes Diet Comment: low fat during the past year weight has: decreased > 10 lbs Assistive Devices: None Allergies Allergies Allergy/AdvReac Type Severity Reaction Status Date / Time cephalexin Allergy Mild Rash Verified 03/18/23 08:34 Home Meds Previous Rx's Medication Instructions Recorded pantoprazole 40 mg tablet,delayed 40 mg PO DAILY #90 tabs 04/22/22 release allopurinol 100 mg tablet 100 mg PO DAILY #90 tabs 09/09/22 calcitriol 0.25 mcg capsule 0.25 mcg PO 3XWK #45 caps 01/29/23 rivaroxaban 20 mg tablet (Xarelto) 20 mg PO QPM #90 tabs 02/05/23 ergocalciferol (vitamin D2) 1,250 50,000 unit PO WEEKLY #12 caps 02/26/23 mcg (50,000 unit) capsule lisinopril 5 mg tablet 5 mg PO DAILY #90 tabs 02/26/23 Results & Data (ED) Vital Signs Vital Signs - 24 hr 03/20/23 14:15 03/20/23 14:57 03/20/23 14:35 Temperature 36.5 C Temperature Source Temporal Artery Scan Pulse Rate 127 H Pulse Rate [Apical] 102 H Pulse Rhythm [Apical] Regular Respiratory Rate 20 16 Respiratory Effort / Characteristics Non-Labored Spontaneous Non-Labored Respiratory Depth Normal Normal Respiratory Pattern Regular Blood Pressure 160/115 H Blood Pressure [Left Arm] 158/121 H Blood Pressure Mean 130 Blood Pressure Mean [Left Arm] 133 Blood Pressure Position [Left Arm] Pulse Oximetry 98 99 Oxygen Delivery Method Room Air Room Air Room Air Sepsis Recent Fever Within 48 Hours No Sepsis New/Unexplained Change in Mental Status No Sepsis Action Taken by Nursing No Action Required 03/20/23 15:43 03/20/23 15:59 03/20/23 16:22 Temperature Temperature Source Pulse Rate 89 Pulse Rate [Apical] 90 90 Pulse Rhythm [Apical] Respiratory Rate 14 Respiratory Effort / Characteristics Respiratory Depth Respiratory Pattern Blood Pressure Blood Pressure [Left Arm] 168/108 H 169/107 H Blood Pressure Mean Blood Pressure Mean [Left Arm] 128 127 Blood Pressure Position [Left Arm] Lying Sitting Pulse Oximetry 97 94 Oxygen Delivery Method Room Air Room Air Sepsis Recent Fever Within 48 Hours Sepsis New/Unexplained Change in Mental Status Sepsis Action Taken by Nursing Laboratory Data 03/20/23 14:30 03/20/23 14:30 Lab Results 03/20/23 03/20/23 03/20/23 Range/Units 14:30 14:30 14:50 WBC 14.49 H (4.8-10.8) K/ul RBC 4.38 L (4.70-6.10) M/uL Hgb 14.5 (14.0-18.0) g/dl Hct 42.5 (42.0-52.0) % MCV 97.0 (80.0-100.0) fL MCH 33.1 (25.0-34.0) pg MCHC 34.1 (32.0-36.0) g/dL RDW Std Deviation 47.2 H (36.4-46.3) fL RDW Coeff of Machelle 13.2 (11.5-14.5) % Plt Count 322 (130-400) K/uL MPV 8.4 L (9.4-12.4) fL Immature Gran % (Auto) 0.3 % Neut % (Auto) 77.3 % Lymph % (Auto) 12.0 % Roberts % (Auto) 6.8 % Eos % (Auto) 3.0 % Baso % (Auto) 0.6 % Neut # (Auto) 11.20 H (1.40-6.50) K/uL Lymph # (Auto) 1.74 (1.2-3.4) K/uL Roberts # (Auto) 0.98 H (0.11-0.59) K/uL Eos # (Auto) 0.43 (0-0.50) K/uL Baso # (Auto) 0.09 (0-0.2) K/uL Immature Gran # (Auto) 0.05 (0.01-0.20) K/uL Sodium 139 (136-145) mmol/L Potassium 3.5 (3.5-5.1) mmol/L Chloride 102 (98-107) mmol/L Carbon Dioxide 21 (21-32) mmol/L Anion Gap 16 H (3-11) BUN 20 (6-23) mg/dl Creatinine 1.37 (0.6-1.4) mg/dl Est Cr Clr Drug Dosing 83.6 ml/min Est GFR ( Amer) 71.7 ml/min Est GFR (Non-Af Amer) 61.8 ml/min BUN/Creatinine Ratio 14.6 (10-20) Glucose 81 (70-99(Fasting)) mg/dl Calcium 9.9 (8.6-10.3) mg/dl Total Bilirubin 0.7 (0.2-1.0) mg/dl AST 13 (13-39) U/L ALT 9 (7-52) U/L Alkaline Phosphatase 128 H (34-104) U/L Total Protein 8.3 (6.0-8.3) gm/dl Albumin 4.4 (3.4-5.0) gm/dl Globulin 3.9 (2.5-4.0) gm/dl Albumin/Globulin Ratio 1.1 (0.9-2) Lipase 72 (11-82) U/L Urine Color Urine Appearance (Clear) Urine pH (4.5-7.5) Ur Specific Randall (1.000-1.030) Urine Protein (Negative) Urine Glucose (UA) (Negative) Urine Ketones (Negative) Urine Blood (Negative) Urine Nitrite (Negative) Urine Bilirubin (Negative) Urine Urobilinogen (Negative) Ur Leukocyte Esterase (Negative) Urine WBC (Auto) (0-5) /hpf Urine RBC (Auto) (0-4) /hpf U Hyaline Cast (Auto) (0-5) /lpf U Epithel Cells (Auto) (0-5) /lpf Urine Bacteria (Auto) (Negative) SARS-CoV-2, RNA, NAAT NEGATIVE (NEGATIVE) 03/20/23 Range/Units 16:23 WBC (4.8-10.8) K/ul RBC (4.70-6.10) M/uL Hgb (14.0-18.0) g/dl Hct (42.0-52.0) % MCV (80.0-100.0) fL MCH (25.0-34.0) pg MCHC (32.0-36.0) g/dL RDW Std Deviation (36.4-46.3) fL RDW Coeff of Machelle (11.5-14.5) % Plt Count (130-400) K/uL MPV (9.4-12.4) fL Immature Gran % (Auto) % Neut % (Auto) % Lymph % (Auto) % Roberts % (Auto) % Eos % (Auto) % Baso % (Auto) % Neut # (Auto) (1.40-6.50) K/uL Lymph # (Auto) (1.2-3.4) K/uL Roberts # (Auto) (0.11-0.59) K/uL Eos # (Auto) (0-0.50) K/uL Baso # (Auto) (0-0.2) K/uL Immature Gran # (Auto) (0.01-0.20) K/uL Sodium (136-145) mmol/L Potassium (3.5-5.1) mmol/L Chloride (98-107) mmol/L Carbon Dioxide (21-32) mmol/L Anion Gap (3-11) BUN (6-23) mg/dl Creatinine (0.6-1.4) mg/dl Est Cr Clr Drug Dosing ml/min Est GFR ( Amer) ml/min Est GFR (Non-Af Amer) ml/min BUN/Creatinine Ratio (10-20) Glucose (70-99(Fasting)) mg/dl Calcium (8.6-10.3) mg/dl Total Bilirubin (0.2-1.0) mg/dl AST (13-39) U/L ALT (7-52) U/L Alkaline Phosphatase (34-104) U/L Total Protein (6.0-8.3) gm/dl Albumin (3.4-5.0) gm/dl Globulin (2.5-4.0) gm/dl Albumin/Globulin Ratio (0.9-2) Lipase (11-82) U/L Urine Color Yellow Urine Appearance Clear (Clear) Urine pH 6.5 (4.5-7.5) Ur Specific Randall 1.028 (1.000-1.030) Urine Protein Trace H (Negative) Urine Glucose (UA) Negative (Negative) Urine Ketones 2+ H (Negative) Urine Blood Trace H (Negative) Urine Nitrite Negative (Negative) Urine Bilirubin Negative (Negative) Urine Urobilinogen Negative (Negative) Ur Leukocyte Esterase Negative (Negative) Urine WBC (Auto) 0 (0-5) /hpf Urine RBC (Auto) 0-4 (0-4) /hpf U Hyaline Cast (Auto) 0 (0-5) /lpf U Epithel Cells (Auto) 5-10 H (0-5) /lpf Urine Bacteria (Auto) Negative (Negative) SARS-CoV-2, RNA, NAAT (NEGATIVE) Administered Medications Fentanyl Citrate (Fentanyl Citrate Pf 100 Mcg/2 Ml Vial) 50 mcg IV Q15M PRN PRN Reason: Pain Stop: 04/03/23 14:22 Last Admin: 03/20/23 16:25 Dose: 50 mcg Documented By: Admin: 03/20/23 14:37 Dose: 50 mcg Documented By: CHRISTEL Discontinued Medications Sodium Chloride (Nss 1000ml) 2,000 mls @ 999 mls/hr IV .Q2H1M ONE Stop: 03/20/23 16:23 Last Infusion: 03/20/23 16:58 Dose: 0 mls/hr Documented By: Admin: 03/20/23 14:37 Dose: 999 mls/hr Documented By: CHRISTEL Piperacillin Sod/Tazobactam Sod (Zosyn) 4.5 gm in 120 mls @ 240 mls/hr IV NOW ONE Stop: 03/20/23 17:09 Last Admin: 03/20/23 17:13 Dose: 240 mls/hr Documented By: LAWRENCE Ioversol (Optiray 320 100ml) 89 ml IV ONCE ONE Stop: 03/20/23 15:40 Last Admin: 03/20/23 15:39 Dose: 89 ml Documented By: JOE Ondansetron HCl (Ondansetron Inj 2 Mg/Ml 2 Ml Vial) 4 mg IV NOW STA Stop: 03/20/23 14:24 Last Admin: 03/20/23 14:37 Dose: 4 mg Documented By: CHRISTEL Imaging Data Radiologist's Impression: Abdomen/Pelvis CT 03/20/23 14:23 CT OF THE ABDOMEN AND PELVIS WITH CONTRAST CLINICAL HISTORY: Epigastric pain. COMPARISON STUDY: CT of the abdomen and pelvis December 09, 2022. TECHNIQUE: Following IV administration of 89 mL of Optiray, axial images of the abdomen and pelvis were obtained from the lung bases to the proximal femurs. Images were reviewed in the axial, sagittal, and coronal planes. IV contrast was administered without complication. Automated exposure control was utilized for the study. A dose lowering technique was utilized adhering to the principles of ALARA. CT DOSE: 1185.77 mGy.cm FINDINGS: Lung bases are unremarkable. No pneumatosis, free air or portal venous gas is present. Moderate dilatation of the pancreatic duct, measuring 8 mm, is similar to CT of December 09, 2022. This is nonspecific but may be related to a pseudocyst within the pancreatic head that measures 3.7 x 3 cm. This pseudocyst has decreased in size since CT of December 09, 2022 when it measured 4.6 x 3.4 cm. Pancreatic glandular atrophy is again noted. No well-defined pancreatic mass is identified. There has been interval development of a large complex fluid collection adjacent to or within the wall of the stomach. This measures approximately 18 x 8 cm. This contains dependent material with rim enhancement. This has significant mass effect upon the stomach which appears narrowed. There is gastric mucosal thickening. This collection is new since CT of December 09, 2022. There is mild stranding adjacent to this collection with a few additional tiny adjacent fluid collections. These extend into the mesentery. No additional large fluid collections are present. The splenic vein is mildly attenuated but patent. The main portal vein is patent. The left portal pain is diminutive. This is unchanged. The spleen, adrenal glands and kidneys are normal. Is no evidence for a bowel obstruction. Trace fluid within the pelvis is noted. The appendix is normal. No pelvic fluid collections. No pseudoaneurysm is identified on this non-CTA exam. IMPRESSION: 1. Interval development of a large complex fluid collection adjacent to or within the wall of the stomach which measures approximately 18 x 8 cm. This is suggestive of a pseudocyst and may reflect a gastric intramural pseudocyst or a perigastric pseudocyst with significant mass effect upon the stomach and associated gastric mucosal thickening. Sterility cannot be assessed by CT however no gas within this collection. 2. Pancreatic glandular atrophy consistent with chronic pancreatitis. Decrease in size of the pancreatic head pseudocyst. Moderate pancreatic ductal dilatation which is indeterminate in etiology but may be related to the pseudocyst. No underlying mass however imaging follow-up to ensure stability/resolution to exclude this possibility is recommended. 3. Upper abdominal stranding. This is likely related to the pseudocyst however superimposed acute pancreatitis could appear similar. 4. No bowel obstruction. ACT 112: Negative or not required by law. Electronically signed by: Manjit Cali M.D. 03/20/2023 4:04 PM Chest X-Ray 03/20/23 14:23 XR chest 1V portable HISTORY: Epigastric abdominal pain. COMPARISON: Chest 01/17/2023. FINDINGS: The lungs are clear. Cardiac silhouette is normal in size. No pleural effusions. No pneumothorax. IMPRESSION: No acute process. ACT 112: Negative or not required by law. Electronically signed by: Omar Duque M.D. 03/20/2023 3:08 PM Discharge Plan Visit Data Chief Complaint: Abdominal Pain Stated Complaint: ABDOMINAL PAIN,BACK PAIN ED Provider: Mc Cr Discharge Problem: Pancreatic pseudocyst, Abdominal pain, acute, epigastric, Cyst of stomach Patient Disposition: Being Evaluated by Hospitalist Forms Stand Alone Forms: [facility] Prescriptions Prescriptions: No Action pantoprazole 40 mg tablet,delayed release (DR/EC) 40 mg PO DAILY Qty: 90 3RF allopurinol 100 mg tablet 100 mg PO DAILY Qty: 90 3RF calcitriol 0.25 mcg capsule 0.25 mcg PO 3XWK Qty: 45 1RF Rx Instructions: TAKE THIS MED EVERY MON/WED/FRI Xarelto 20 mg tablet 20 mg PO QPM Qty: 90 2RF Rx Instructions: must administer with evening meal lisinopril 5 mg tablet 5 mg PO DAILY Qty: 90 3RF ergocalciferol (vitamin D2) 1,250 mcg (50,000 unit) capsule 50,000 unit PO WEEKLY Qty: 12 0RF Referrals Referrals: Jaja Cali MD [Primary Care Provider] -
[2023-03-20] MEDS: fentaNYL citrate PF 100 MCG/2 ML VIAL IV PRN ×2 (14:37→16:25)
[2023-03-20 15:05] LABS: Basophils # (auto) 0.09 K/uL (0-0.2); Basophils % (auto) 0.6 %; Eosinophils # (auto) 0.43 K/uL (0-0.50); Hematocrit (blood only) 42.5 % (42.0-52.0); Hemoglobin 14.5 g/dl (14.0-18.0); Immature Granulocytes # (auto) 0.05 K/uL (0.01-0.20); Immature Granulocytes % (auto) 0.3 %; Lymphocytes # (auto) 1.74 K/uL (1.2-3.4); Mean Corpuscular Hemoglobin 33.1 pg (25.0-34.0); Mean Corpuscular Hgb Conc 34.1 g/dL (32.0-36.0); Mean Platelet Volume 8.4 fL (9.4-12.4); Monocytes # (auto) 0.98 K/uL (0.11-0.59); Monocytes % (auto) 6.8 %; Neutrophils % (auto) 77.3 %; Platelet Count 322 K/uL (130-400); RDW Coefficient of Variation 13.2 % (11.5-14.5); RDW Standard Deviation 47.2 fL (36.4-46.3); Red Blood Count 4.38 M/uL (4.70-6.10); White Blood Count 14.49 K/ul (4.8-10.8)
--- NOTE | 2023-03-20 15:09 | XRay Report ---
XR chest 1V portable HISTORY: Epigastric abdominal pain. COMPARISON: Chest 01/17/2023. FINDINGS: The lungs are clear. Cardiac silhouette is normal in size. No pleural effusions. No pneumot horax. IMPRESSION: No acute process. ACT 112: Negative or not required by law. Electronically signed by: Omar Duque M.D. 03/20/2023 3:08 PM
[2023-03-20 15:22] LABS: Albumin Globulin Ratio 1.1 (0.9-2); Albumin Level 4.4 gm/dl (3.4-5.0); BUN Creatinine Ratio 14.6 (10-20); Bilirubin,Total 0.7 mg/dl (0.2-1.0); Calcium 9.9 mg/dl (8.6-10.3); Creatinine Clr Calc Pharmacy 83.6 ml/min; Est GFR (African American) 71.7 ml/min; Est GFR (Non-African American) 61.8 ml/min; Globulin 3.9 gm/dl (2.5-4.0); Potassium 3.5 mmol/L (3.5-5.1); Total Protein 8.3 gm/dl (6.0-8.3)
[2023-03-20] MEDS ORDERED: OPTIRAY 320 100ml IV ONE (15:39)
--- NOTE | 2023-03-20 16:06 | CT Scan Report ---
CT OF THE ABDOMEN AND PELVIS WITH CONTRAST CLINICAL HISTORY: Epigastric pain. COMPARISON STUDY: CT of the abdomen and pelvis December 09, 2022. TECHNIQUE: Following IV administration of 89 mL of Optiray, axial images of the abdomen and pelvis we re obtained from the lung bases to the proximal femurs. Images were reviewed in the axial, sagittal, and coronal planes. IV contrast was administered without complication. Automated exposure control wa s utilized for the study. A dose lowering technique was utilized adhering to the principles of ALARA . CT DOSE: 1185.77 mGy.cm FINDINGS: Lung bases are unremarkable. No pneumatosis, free air or portal venous gas is present. Mode rate dilatation of the pancreatic duct, measuring 8 mm, is similar to CT of December 09, 2022. This i s nonspecific but may be related to a pseudocyst within the pancreatic head that measures 3.7 x 3 cm. This pseudocyst has decreased in size since CT of December 09, 2022 when it measured 4.6 x 3.4 cm. P ancreatic glandular atrophy is again noted. No well-defined pancreatic mass is identified. There has been interval development of a large complex fluid collection adjacent to or within the wall of the s tomach. This measures approximately 18 x 8 cm. This contains dependent material with rim enhancement. This has significant mass effect upon the stomach which appears narrowed. There is gastric mucosal t hickening. This collection is new since CT of December 09, 2022. There is mild stranding adjacent to this collection with a few additional tiny adjacent fluid collections. These extend into the mesenter y. No additional large fluid collections are present. The splenic vein is mildly attenuated but paten t. The main portal vein is patent. The left portal pain is diminutive. This is unchanged. The spleen, adrenal glands and kidneys are normal. Is no evidence for a bowel obstruction. Trace fluid within th e pelvis is noted. The appendix is normal. No pelvic fluid collections. No pseudoaneurysm is identifi ed on this non-CTA exam. IMPRESSION: 1. Interval development of a large complex fluid collection adjacent to or within the wall of the sto mach which measures approximately 18 x 8 cm. This is suggestive of a pseudocyst and may reflect a gas tric intramural pseudocyst or a perigastric pseudocyst with significant mass effect upon the stomach and associated gastric mucosal thickening. Sterility cannot be assessed by CT however no gas within t his collection. 2. Pancreatic glandular atrophy consistent with chronic pancreatitis. Decrease in size of the pancrea tic head pseudocyst. Moderate pancreatic ductal dilatation which is indeterminate in etiology but may be related to the pseudocyst. No underlying mass however imaging follow-up to ensure stability/resol ution to exclude this possibility is recommended. 3. Upper abdominal stranding. This is likely related to the pseudocyst however superimposed acute olson creatitis could appear similar. 4. No bowel obstruction. ACT 112: Negative or not required by law. Electronically signed by: Manjit Cali M.D. 03/20/2023 4:04 PM
[2023-03-20 16:35] LABS: Appearance Urine Clear (Clear); Bacteria Urine Automated Negative (Negative); Bilirubin Urine Negative (Negative); Blood Urine Trace (Negative); Cast Urine Automated 0 /lpf (0-5); Color Urine Yellow; Glucose Urine UA Negative (Negative); Ketones Urine 2+ (Negative); Leukocyte Esterase Urine Negative (Negative); Nitrite Urine Negative (Negative); Protein Urine Trace (Negative); RBC Urine Automated 0-4 /hpf (0-4); Specific Gravity Urine 1.028 (1.000-1.030); Urobilinogen Urine Negative (Negative); WBC Urine Automated 0 /hpf (0-5); pH Urine 6.5 (4.5-7.5)
[2023-03-20] MEDS ORDERED: PIPERACILLIN/TAZOBACTAM 4.5 GM/120 ML BAG IV ONE (16:40)
--- NOTE | 2023-03-20 17:46 | History & Physical Report ---
Date of Service March 20, 2023 Assessment & Plan (1) Pancreatic pseudocyst: Plan: Acute, unstable NPO after midnight Hold Xarelto GI consulted and following and possible EGD/EUS for drainage of the pseudocyst in the AM Leukocytosis but afebrile Repeat CBC and CMP in AM Continue Zosyn (2) Abdominal pain, acute, epigastric: Plan: Acute and secondary to the pancreatic pseudocyst (3) Deep vein thrombosis: Plan: Chronic, h/o such Hold Xarelto for possible endoscopy (4) Hypertension: Plan: Chronic and stable Continue Lisinopril (5) Vitamin D deficiency: Plan: Chronic and stable Continue Vitamin D3 50,000 IU weekly (6) Chronic venous insufficiency: Plan: Chronic, h/o venous ablation with Vascular Med follows with wound clinic-consult WOund RN (7) Chronic pancreatitis: Plan: discussed the need to completely abstain from all alcohol Plan DVT prophylaxis-holding Xarelto Dispo-admit to med/surg History of Present Illness Chief Complaint: abdominal pain and nausea and vomiting Primary Care Provider: Jaja Cali MD Anthony Sharif is a 43 year old male with past medical history of chronic pancreatitis, hx of alcohol abuse, HTN, CKD, GERD, vitamin D deficiency, DVT and chronic LE wounds and gall bladder sludge and told needs a CCY but needs to be done at a tertiary center (has appt with kylie at [facility] in the future)who presented to the ER today with complaints of epigastric abdominal pain, nausea and vomiting. Patient states that yesterday he began to have epigastric abdominal pain that radiated through to the back. He states the pain was sharp and was similar to his previous pancreatitis episodes but "different" and not nearly as severe of pain. He state he was very nauseated after eating and then began to vomit last night and continued to vomit today. His emesis was nonbloody and nonbilious. He admits to light colored greasy stools. He states he used to abuse alcohol and now only drinks occasionally. His last alcoholic drink was last week per patient. He tells me he has had 2 documented episodes of pancreatis. First was last fall and most recent was 11/2022. Patient has had multiple EUS in the past with Dr Pressley. Most recent EUS was 01/09/22 and revealed 30mm pseudocyst/WON and was noted to have significantly improved from previous imaging. Patient was evaluated in the ED and had CTAP that revealed a interval developement of a large complex fluid collection adjacent to or within the wall of the stomach measuring 18x8cm - likely could represent a pancreatic pseudocyst. The ER physican spoke with Dr Pressley who recommended patient be NPO at midnight and hold his Xarelto for EUS and possible drainage tomorrow. Allergies Allergy/AdvReac Type Severity Reaction Status Date / Time cephalexin Allergy Mild Rash Verified 03/20/23 19:39 Home Medications Medication Instructions Recorded Confirmed Type pantoprazole 40 mg tablet,delayed 40 mg PO DAILY #90 tabs 04/22/22 03/20/23 Rx release allopurinol 100 mg tablet 100 mg PO DAILY #90 tabs 09/09/22 03/20/23 Rx calcitriol 0.25 mcg capsule 0.25 mcg PO 3XWK #45 caps 01/29/23 03/20/23 Rx ergocalciferol (vitamin D2) 1,250 50,000 unit PO WEEKLY #12 caps 02/26/23 03/20/23 Rx mcg (50,000 unit) capsule lisinopril 5 mg tablet 5 mg PO DAILY #90 tabs 02/26/23 03/20/23 Rx rivaroxaban 20 mg tablet (Xarelto) 20 mg PO DAILYBD 03/20/23 03/20/23 History Past Med/Surg History Medical History Acute pancreatitis Alcohol use disorder Anemia Chronic kidney disease with symptom management only, stage 4 (severe) Chronic venous insufficiency Coagulopathy Deep vein thrombosis 07/2018/CHRONIC- ON Xarelto Elevated lipase Encounter for pre-operative examination Encounter for pre-operative examination Esophagitis Hematemesis Hypertension Hypokalemia MVP (mitral valve prolapse) 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 ECHO Osteomyelitis of ankle or foot, left, acute Pancreatitis Pancreatitis Portal vein thrombosis Pseudocyst, pancreas Secondary hyperparathyroidism of renal origin Traumatic open wound of left lower leg Vitamin D deficiency Vomiting Surgical History Hx of biopsy LEFT KIDNEY S/P vascular surgery LLE 2/2 VENOUS INSUFFICIENCY Status post left foot surgery I and D of left foot on 08/22/21. LMA #5 Family History Mother FHx: lung cancer Hypertension Breast cancer Brother FHx: testicular cancer Hypertension Father Hypertension Unknown Myocardial infarction Social History Smoking Status: Never smoker Second Hand Exposure: No; Do You Dip or Chew Tobacco: No; Tobacco Cessation Education Requested by Patient: No Hx Alcohol Use: Yes Alcohol type: hard liquor Hx Substance Use: No Preferred Language: Korean Communication Ability: Effective Visual Impairment: No Limitations Mechanical Assembly Required: No Beliefs That Will Affect Care: None marital status: Single Current Living Situation: Significant Other Current Living Situation Comment: [employer] KIDS current occupational status: unemployed How many Children do You have: 4 Other Information That Helps Us Care for You: No Feels Safe at Home: Yes Safety Concerns: Feels Safe At This Time Diet Comment: low fat during the past year weight has: decreased > 10 lbs Assistive Devices: None Review of Systems Constitutional: + fatigue; no fever and no sweats Respiratory: no cough, no chest congestion, no dyspnea and no hemoptysis Cardiovascular: + edema; no chest pain, no dyspnea and no calf pain Gastrointestinal: + abdominal pain, + early satiety, + nausea and + vomiting; no hematemesis, no dysphagia and no blood in stools light colored greasy stools Integumentary: Hx of venous stasis wounds left foot, per patient following with wound clinic and healing well Endocrine: no polydipsia, no polyphagia and no polyuria Physical Exam Constitutional: BP elevated but awake laying in bed in NAD, 98% on RA Neck: trachea midline, no thyromegaly Respiratory: normal respiratory effort, lungs clear to auscultation Cardiovascular: RRR, no murmur, no edema Extremities: no calf tenderness support dressing left leg Gastrointestinal (Abdomen): Inspection/Auscultation: abdomen normal to inspection and normal bowel sounds Percussion/Palpation: + abdomen tender and abdomen soft; no guarding, abdomen not rigid and no hepatomegaly tender to palpation epigastric area Neurologic: PERRL, EOMI, accommodation nl, no face palsy, no dysarthria Psychiatric: A+Ox3, euthymic affect Results & Data Results & Data Vital Signs (Past 12 Hours) Vital Signs Temp Pulse Pulse Resp BP BP Pulse Ox 03/20/23 16:22 90 14 169/107 H 94 03/20/23 15:59 89 03/20/23 15:43 90 168/108 H 97 03/20/23 14:35 102 H 16 158/121 H 99 03/20/23 14:57 03/20/23 14:15 36.5 C 127 H 20 160/115 H 98 O2 Del Method 03/20/23 16:22 Room Air 03/20/23 15:59 03/20/23 15:43 Room Air 03/20/23 14:35 Room Air 03/20/23 14:57 Room Air 03/20/23 14:15 Room Air Laboratory Results Abnormal lab results 03/20/23 03/20/23 03/20/23 Range/Units 14:30 14:30 16:23 WBC 14.49 H (4.8-10.8) K/ul RBC 4.38 L (4.70-6.10) M/uL RDW Std Deviation 47.2 H (36.4-46.3) fL MPV 8.4 L (9.4-12.4) fL Neut # (Auto) 11.20 H (1.40-6.50) K/uL Emmons # (Auto) 0.98 H (0.11-0.59) K/uL Anion Gap 16 H (3-11) Alkaline Phosphatase 128 H (34-104) U/L Urine Protein Trace H (Negative) Urine Ketones 2+ H (Negative) Urine Blood Trace H (Negative) U Epithel Cells (Auto) 5-10 H (0-5) /lpf Diagnostic Findings Abdomen/Pelvis CT 03/20/23 14:23 CT OF THE ABDOMEN AND PELVIS WITH CONTRAST CLINICAL HISTORY: Epigastric pain. COMPARISON STUDY: CT of the abdomen and pelvis December 09, 2022. TECHNIQUE: Following IV administration of 89 mL of Optiray, axial images of the abdomen and pelvis were obtained from the lung bases to the proximal femurs. Images were reviewed in the axial, sagittal, and coronal planes. IV contrast was administered without complication. Automated exposure control was utilized for the study. A dose lowering technique was utilized adhering to the principles of ALARA. CT DOSE: 1185.77 mGy.cm FINDINGS: Lung bases are unremarkable. No pneumatosis, free air or portal venous gas is present. Moderate dilatation of the pancreatic duct, measuring 8 mm, is similar to CT of December 09, 2022. This is nonspecific but may be related to a pseudocyst within the pancreatic head that measures 3.7 x 3 cm. This pseudocyst has decreased in size since CT of December 09, 2022 when it measured 4.6 x 3.4 cm. Pancreatic glandular atrophy is again noted. No well-defined pancreatic mass is identified. There has been interval development of a large complex fluid collection adjacent to or within the wall of the stomach. This measures approximately 18 x 8 cm. This contains dependent material with rim enhancement. This has significant mass effect upon the stomach which appears narrowed. There is gastric mucosal thickening. This collection is new since CT of December 09, 2022. There is mild stranding adjacent to this collection with a few additional tiny adjacent fluid collections. These extend into the mesentery. No additional large fluid collections are present. The splenic vein is mildly attenuated but patent. The main portal vein is patent. The left portal pain is diminutive. This is unchanged. The spleen, adrenal glands and kidneys are normal. Is no evidence for a bowel obstruction. Trace fluid within the pelvis is noted. The appendix is normal. No pelvic fluid collections. No pseudoaneurysm is identified on this non-CTA exam. IMPRESSION: 1. Interval development of a large complex fluid collection adjacent to or within the wall of the stomach which measures approximately 18 x 8 cm. This is suggestive of a pseudocyst and may reflect a gastric intramural pseudocyst or a perigastric pseudocyst with significant mass effect upon the stomach and associated gastric mucosal thickening. Sterility cannot be assessed by CT however no gas within this collection. 2. Pancreatic glandular atrophy consistent with chronic pancreatitis. Decrease in size of the pancreatic head pseudocyst. Moderate pancreatic ductal dilatation which is indeterminate in etiology but may be related to the pseudocyst. No underlying mass however imaging follow-up to ensure stability/resolution to exclude this possibility is recommended. 3. Upper abdominal stranding. This is likely related to the pseudocyst however superimposed acute pancreatitis could appear similar. 4. No bowel obstruction. ACT 112: Negative or not required by law. Electronically signed by: Manjit Cali M.D. 03/20/2023 4:04 PM Chest X-Ray 03/20/23 14:23 XR chest 1V portable HISTORY: Epigastric abdominal pain. COMPARISON: Chest 01/17/2023. FINDINGS: The lungs are clear. Cardiac silhouette is normal in size. No pleural effusions. No pneumothorax. IMPRESSION: No acute process. ACT 112: Negative or not required by law. Electronically signed by: Omar Duque M.D. 03/20/2023 3:08 PM Supervising Physician Co-Signing Physician Notes PA Supervision Note: I personally saw and examined the patient. I verified all bailey points and agree with REMEDIOS Mcadams with the following exceptions and/or additions: S-Pt is a 43 yo male with a h/o recurrent pancreatitis, EtOH abuse, HTN, venous insufficiency s/p ablation, DVT on Xarelto, here with epigastric pain, found to have large pancreatic pseudocyst. History and ROS as above O- Vitals reviewed Gen: [AAOx3, NAD] HEENT: [anicteric sclerae, EOMI] CV: [RRR no mgr nl S1S2] Pulm: [CTAB no wcr] Abd: [+BS soft mild ttp epigastric and LUQ w/o guarding or rebound, ND no masses or hernias] Ext: [nleft leg in compression wrap, no edema right leg] Skin: [cannot visualize wounds of left leg with compression wrap in place Labs, Rads reviewed A/P-43 yo male here with pancreatic pseudocyst and epigastri cpain, N/V, gastric compression. NPO after midnight for ERCP and cyst drainage hold Xarelto, avoid NSAIDs, add dilaudid prn pain start IVFs with LR at 100 mL/hr avoid EtOH consult wound care for left leg wounds which are chronic and has compression wrap in place follow CBC,CMP, mag, phos in AM PG Care Time/CCT Total # of Minutes Spent Total Time Spent with Patient: Total time spent is greater than 50% in coordination of care (as documented) at patient's floor/unit and/or counseling patient: Coding Level of Care Code 67361 INT INP/OBS CARE 3/75MIN Diagnoses Pancreatic pseudocyst K86.3 Abdominal pain, acute, epigastric R10.13 Deep vein thrombosis I82.409 Hypertension I10 Hypertension type: unspecified Vitamin D deficiency E55.9 Chronic venous insufficiency I87.2 Chronic pancreatitis K86.1 (4) Hypertension Hypertension type: unspecified Qualified Code(s): I10 - Essential (primary) hypertension
[2023-03-20] MEDS ORDERED: ONDANSETRON INJ 2 MG/ML 2 ML VIAL IV PRN (20:31)
[2023-03-20] MEDS ORDERED: KETOROLAC TROMETHAMINE 15 MG/ML VIAL IV PRN (20:54)
[2023-03-20] MEDS: PIPERACILLIN/TAZOBACTAM 4.5 GM in DEXTROSE 5% 100 ML IV SCH (21:32)
[2023-03-20] MEDS ORDERED: HYDROmorphone INJ 0.5 MG/0.5 ML SYR IV PRN (22:06)
[2023-03-20] MEDS: LACTATED RINGER'S 1,000 ML IV SCH (22:15)
[2023-03-21] MEDS: PIPERACILLIN/TAZOBACTAM 4.5 GM in DEXTROSE 5% 100 ML IV SCH ×3 (05:56→22:09)
[2023-03-21 06:33] LABS: Hematocrit (blood only) 37.3 % (42.0-52.0); Hemoglobin 12.8 g/dl (14.0-18.0); Mean Corpuscular Hemoglobin 33.7 pg (25.0-34.0); Mean Corpuscular Hgb Conc 34.3 g/dL (32.0-36.0); Mean Corpuscular Volume 98.2 fL (80.0-100.0); Mean Platelet Volume 8.4 fL (9.4-12.4); Platelet Count 225 K/uL (130-400); RDW Coefficient of Variation 13.2 % (11.5-14.5); RDW Standard Deviation 47.8 fL (36.4-46.3); White Blood Count 15.64 K/ul (4.8-10.8)
[2023-03-21 06:48] LABS: Albumin Globulin Ratio 1.1 (0.9-2); Albumin Level 3.5 gm/dl (3.4-5.0); BUN Creatinine Ratio 11.4 (10-20); Bilirubin,Total 1.1 mg/dl (0.2-1.0); Calcium 8.8 mg/dl (8.6-10.3); Creatinine Clr Calc Pharmacy 76.9 ml/min; Est GFR (African American) 64.8 ml/min; Est GFR (Non-African American) 55.9 ml/min; Globulin 3.1 gm/dl (2.5-4.0); Magnesium 1.3 mg/dl (1.7-2.4); Phosphorus 2.3 mg/dl (2.5-4.9); Potassium 3.5 mmol/L (3.5-5.1); Total Protein 6.6 gm/dl (6.0-8.3)
[2023-03-21 07:08] LABS: Basophils # (auto) 0.03 K/uL (0-0.2); Basophils % (auto) 0.2 %; Eosinophils # (auto) 0.45 K/uL (0-0.50); Eosinophils % (auto) 2.9 %; Immature Granulocytes # (auto) 0.07 K/uL (0.01-0.20); Immature Granulocytes % (auto) 0.4 %; Lymphocytes # (auto) 0.16 K/uL (1.2-3.4); Monocytes # (auto) 0.72 K/uL (0.11-0.59); Monocytes % (auto) 4.6 %; Neutrophils # (auto) 14.21 K/uL (1.40-6.50); Neutrophils % (auto) 90.9 %
[2023-03-21] MEDS: ACETAMINOPHEN 325 MG TAB PO PRN ×2 (07:22→16:12)
--- NOTE | 2023-03-21 07:41 | Gastrointestinal Consultation ---
Date of Consultation March 21, 2023 Assessment & Plan (1) Chronic pancreatitis: (2) Pancreatic pseudocyst: Plan ERCP today by Dr. Pressley. Please keep NPO. Please continue Zosyn or other broad spectrum antibiotic for coverage of cholangitis (febrile/leukocytosis). Discussed ETOH cessation w pt. Supervising Physician Co-Signing Physician Notes I performed a history and physical examination of the patient today, including specifically on physical exam - soft abdomen. I have discussed the patient's management with the advanced practitioner. Please refer to the nurse practitioner's note for the documented findings and plan of care. ERCP today to attempt PD stenting. EUS for Pseudocyst drainage. Patient was explained in detail regarding risks, benefits, limitations and alternatives of the above endoscopic procedure. Risks of intravenous sedation used for procedure were also explained. Risks include, but not limited to perforation, bleeding, infection, respiratory distress, cardiac arrest and . Patient is also aware about the possibility of missed lesion. Patient's questions were answered. The patient verbalized understanding the information and agreed to undergo the procedure. History of Present Illness Reason for Consultation: Pancreatic Pseudocyst Requesting Physician: Kalli Ramirez Attending Physician: Christos Mccurdy MD History of Present Illness Mr. Anthony Sharif is a 43 yr old male pt of Dr. Jaja Cali w a hx of chronic ETOH pancreatitis (most recent drink one week ago, denies withdraw symptoms), gallstones, HTN, CKD4, GERD, MVP/regurg who presented to the ED yesterday for epigastric pain x 2 days. He also had vomiting yesterday, chills last evening and this morning a feverl. On arrival, leukocytosis at 14 (->15 today), CT suggests an 18 x 8 cm pseudocyst compressing the stomach. LFTs and lipase are normal. ERCP to drain the cyst is planned for today. On exam, he appears well, is awake and alert, has mild epigastric discomfort. It was noted that his HR is 130's, regular, no other s/s of alcohol withdraw, doesn't seem like he is in a lot pain - notified the primary hospitalist of the tachycardia. He has undergone prior EGD/EUS most recently December 2021 w grade B esophagitis, medium sized HH, gallstones, fatty liver, chronic pancreatitis, and a 3cm pseudocyst/WON in the pancreatic head at that time improved compared to previous. Most recent ERCP was attempted in Oct 2021 and was aborted due to severe duodenal inflammation. He had been referred to surgery to consider cholecystectomy but missed the OP appt for surgery eval. Allergies Allergy/AdvReac Type Severity Reaction Status Date / Time cephalexin Allergy Mild Rash Verified 03/20/23 19:39 Home Medications Medication Instructions Recorded Confirmed Type pantoprazole 40 mg tablet,delayed 40 mg PO DAILY #90 tabs 04/22/22 03/20/23 Rx release allopurinol 100 mg tablet 100 mg PO DAILY #90 tabs 09/09/22 03/20/23 Rx calcitriol 0.25 mcg capsule 0.25 mcg PO 3XWK #45 caps 01/29/23 03/20/23 Rx ergocalciferol (vitamin D2) 1,250 50,000 unit PO WEEKLY #12 caps 02/26/23 03/20/23 Rx mcg (50,000 unit) capsule lisinopril 5 mg tablet 5 mg PO DAILY #90 tabs 02/26/23 03/20/23 Rx rivaroxaban 20 mg tablet (Xarelto) 20 mg PO DAILYBD 03/20/23 03/20/23 History Patient History Medical History Acute pancreatitis Alcohol use disorder Anemia Chronic kidney disease with symptom management only, stage 4 (severe) Chronic venous insufficiency Coagulopathy Deep vein thrombosis 07/2018/CHRONIC- ON Xarelto Elevated lipase Encounter for pre-operative examination Encounter for pre-operative examination Esophagitis Hematemesis Hypertension Hypokalemia MVP (mitral valve prolapse) 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 ECHO Osteomyelitis of ankle or foot, left, acute Pancreatitis Pancreatitis Portal vein thrombosis Pseudocyst, pancreas Secondary hyperparathyroidism of renal origin Traumatic open wound of left lower leg Vitamin D deficiency Vomiting Surgical History Hx of biopsy LEFT KIDNEY S/P vascular surgery LLE 2/2 VENOUS INSUFFICIENCY Status post left foot surgery I and D of left foot on 08/22/21. LMA #5 Family History Mother FHx: lung cancer Hypertension Breast cancer Brother FHx: testicular cancer Hypertension Father Hypertension Unknown Myocardial infarction Social History Smoking Status: Never smoker Second Hand Exposure: No; Do You Dip or Chew Tobacco: No; Tobacco Cessation Education Requested by Patient: No Hx Alcohol Use: Yes Alcohol type: hard liquor Hx Substance Use: No Preferred Language: Nepali Communication Ability: Effective Visual Impairment: No Limitations Audit Specialist Required: No Beliefs That Will Affect Care: None marital status: Single Current Living Situation: Significant Other Current Living Situation Comment: [employer] KIDS current occupational status: unemployed How many Children do You have: 4 Other Information That Helps Us Care for You: No Feels Safe at Home: Yes Safety Concerns: Feels Safe At This Time Diet Comment: low fat during the past year weight has: decreased > 10 lbs Assistive Devices: None Review of Systems Review of Systems: ROS: Gen: + fever today; chills yesterday; Denies weakness or weight loss HEENT: No eye redness, or pain, no recent vision changes, Denies congestion/runny nose Resp: No SOB, no cough Cardio: Denies feeling a rapid HR or irregular beat, no chest pain GI: As per HPI, otherwise (-) : Denies pain on urination Skin: No jaundice, itching or new rashes Physical Exam Constitutional: WD/WN, vitals as above Eyes: PERRL, conjunctivae normal, anicteric sclerae ENMT: external ear and nose normal, oropharynx normal Neck: trachea midline, no thyromegaly Respiratory: normal respiratory effort, lungs clear to auscultation Cardiovascular: RRR, no murmur, no edema Gastrointestinal (Abdomen): mild epigastric tenderness, otherwise non tender, no palpable masses or hepatsplenomegaly. Musculoskeletal: no cyanosis or clubbing, extremities motor strength 5/5 Skin: no rashes, warm and dry Neurologic: PERRL, EOMI, accommodation nl, no face palsy, no dysarthria Psychiatric: A+Ox3, euthymic affect Lymphatic: no cervical or axillary lymphadenopathy Results & Data Vital Signs (Past 12 Hours) Vital Signs Temp Pulse Resp BP Pulse Ox O2 Del Method 03/21/23 07:17 38.2 C H 131 H 18 130/85 95 Room Air 03/20/23 20:15 Room Air 03/20/23 20:15 Room Air 03/20/23 20:15 36.8 C 106 H 20 167/110 H 96 Room Air Laboratory Results WBC 15, Hb 12, Hct 37, Plts 225, Na 128, K 3.5, BUN 17, Cr 1.49. LFTs, lipase normal. Diagnostic Findings CTAP 2 IV contrast 03/20/23: 1. Interval development of a large complex fluid collection adjacent to or within the wall of the stomach which measures approximately 18 x 8 cm. This is suggestive of a pseudocyst and may reflect a gastric intramural pseudocyst or a perigastric pseudocyst with significant mass effect upon the stomach and associated gastric mucosal thickening. Sterility cannot be assessed by CT however no gas within this collection. 2. Pancreatic glandular atrophy consistent with chronic pancreatitis. Decrease in size of the pancreatic head pseudocyst. Moderate pancreatic ductal dilatation which is indeterminate in etiology but may be related to the pseudocyst. No underlying mass however imaging follow-up to ensure stability/resolution to exclude this possibility is recommended. 3. Upper abdominal stranding. This is likely related to the pseudocyst however superimposed acute pancreatitis could appear similar. 4. No bowel obstruction.
--- NOTE | 2023-03-21 07:48 | Electrocardiogram Report ---
Test Reason : Blood Pressure : / mmHG Vent. Rate : 102 BPM Atrial Rate : 102 BPM P-R Int : 206 ms QRS Dur : 086 ms QT Int : 360 ms P-R-T Axes : 052 -09 027 degrees QTc Int : 469 ms Sinus tachycardia Minimal voltage criteria for LVH, may be normal variant Abnormal ECG When compared with ECG of 17-JAN-2023 19:54, No significant change Confirmed by Viraj Elizalde ([id number]) on 03/21/2023 7:48:21 AM Referred By: REFERRED SELF Confirmed By:Viraj Elizalde
[2023-03-21] MEDS: MAGNESIUM SULFATE / D5W 1 GM/100 ML BAG IV SCH ×3 (08:48→12:30)
[2023-03-21] MEDS: LACTATED RINGER'S 1,000 ML IV SCH ×3 (08:54→22:09)
--- NOTE | 2023-03-21 12:16 | Anesthesiology Consultation ---
Date of Service March 21, 2023 Assessment & Plan (1) Encounter for pre-operative examination: Chart Review Chart Review: Acceptable Risk for Surgery History Surgery Operation Date: 03/21/23 08:40 Proposed Procedures p Endoscopic Retrograde Cholangiopancreatogram - Sachi Pressley MD s Endoscopic Ultrasonography Upper - Sachi Pressley MD Height/Weight Height: 6 ft 4 in Weight: 89.4 kg Allergies Allergy/AdvReac Type Severity Reaction Status Date / Time cephalexin Allergy Mild Rash Verified 03/20/23 19:39 Medications Home Medications Medication Instructions Recorded Confirmed Last Taken pantoprazole 40 mg tablet,delayed 40 mg PO DAILY #90 tabs 04/22/22 03/20/23 Unknown release allopurinol 100 mg tablet 100 mg PO DAILY #90 tabs 09/09/22 03/20/23 Unknown calcitriol 0.25 mcg capsule 0.25 mcg PO 3XWK #45 caps 01/29/23 03/20/23 Unknown ergocalciferol (vitamin D2) 1,250 50,000 unit PO WEEKLY #12 caps 02/26/23 03/20/23 Unknown mcg (50,000 unit) capsule lisinopril 5 mg tablet 5 mg PO DAILY #90 tabs 02/26/23 03/20/23 Unknown rivaroxaban 20 mg tablet (Xarelto) 20 mg PO DAILYBD 03/20/23 03/20/23 Unknown Active Medications Generic Name Dose Route Start Last Admin Trade Name Freq PRN Reason Stop Dose Admin Acetaminophen 650 mg 03/20/23 20:31 03/21/23 07:22 Acetaminophen 325 Mg Tab PO 04/19/23 20:30 650 mg Q4H PRN Administration pain/fever Hydromorphone HCl 0.5 mg 03/20/23 22:06 03/21/23 09:56 Hydromorphone Inj 0.5 Mg/0.5 Ml Syr IV 04/03/23 22:05 0.5 mg Q6H PRN Administration Pain Piperacillin Sod/Tazobactam 120 mls @ 30 mls/hr 03/20/23 22:00 03/21/23 09:56 Sod 4.5 gm/ Dextrose IV 03/24/23 21:59 Infused Q8H CURTIS Infusion Protocol Lactated Ringer's 1,000 mls @ 150 mls/hr 03/20/23 22:15 03/21/23 09:10 Lr IV 04/19/23 22:14 150 mls/hr .Q6H40M CURTIS Infusion Magnesium Sulfate/Dextrose 1 gm in 100 mls @ 50 mls/hr 03/21/23 08:30 03/21/23 10:20 Magnesium Sulfate / D5w IV 03/21/23 14:29 50 mls/hr Q2H CURTIS Administration NPO Date Last Intake of Fluids: 03/20/23 Time Last Intake of Fluids: 23:30 Date Last Intake of Solids: 03/20/23 Time Last Intake of Solids: 23:30 Past Medical History Medical History (Updated 03/21/23 @ 12:16 by Melvin Phillips MD) Acute pancreatitis Alcohol use disorder Anemia Chronic kidney disease with symptom management only, stage 4 (severe) Chronic venous insufficiency Coagulopathy Deep vein thrombosis 07/2018/CHRONIC- ON Xarelto Esophagitis Hematemesis Hypertension Hypokalemia MVP (mitral valve prolapse) 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 ECHO Osteomyelitis of ankle or foot, left, acute Pancreatitis Portal vein thrombosis Pseudocyst, pancreas Secondary hyperparathyroidism of renal origin Traumatic open wound of left lower leg Vitamin D deficiency Past Family History Family History Mother FHx: lung cancer Hypertension Breast cancer Brother FHx: testicular cancer Hypertension Father Hypertension Unknown Myocardial infarction Past Surgical History Surgical History Hx of biopsy LEFT KIDNEY S/P vascular surgery LLE 2/2 VENOUS INSUFFICIENCY Status post left foot surgery I and D of left foot on 08/22/21. LMA #5 Social History Smoking Status: Never smoker Do You Dip or Chew Tobacco: No Hx Alcohol Use: Yes Alcohol type: hard liquor alcohol intake frequency: a few times a month Hx Substance Use: No substance use type: does not use Physical Exam Vital Signs Last Vital Signs Temp 36.9 C 03/21/23 11:28 Pulse 112 H 03/21/23 11:28 Resp 18 03/21/23 11:28 BP 133/85 03/21/23 11:28 Pulse Ox 97 03/21/23 11:28 O2 Del Method Room Air 03/21/23 11:28 Testing Laboratory Results 03/21/23 06:08 03/21/23 06:08 Urine Color Yellow 03/20/23 16:23 Urine Appearance Clear (Clear) 03/20/23 16: Urine pH 6.5 (4.5-7.5) 03/20/23 16:23 Ur Specific [place] 1.028 (1.000-1.030) 03/20/23 16:23 Urine Protein Trace (Negative) H 03/20/23 16:23 Urine Glucose (UA) Negative (Negative) 03/20/23 16: Urine Ketones 2+ (Negative) H 03/20/23 16:23 Urine Nitrite Negative (Negative) 03/20/23 16:23 Ur Leukocyte Esterase Negative (Negative) 03/20/23 16:23 Urine WBC (Auto) 0 /hpf (0-5) 03/20/23 16:23 Urine RBC (Auto) 0-4 /hpf (0-4) 03/20/23 16: U Hyaline Cast (Auto) 0 /lpf (0-5) 03/20/23 16:23 U Epithel Cells (Auto) 5-10 /lpf (0-5) H 03/20/23 16:23 Urine Bacteria (Auto) Negative (Negative) 03/20/23 16: Electrocardiogram Date: 03/20/23 Findings: + ST @ (102)
[2023-03-21] MEDS ORDERED: ATROPINE SULFATE 0.1 MG/ML 10ML SYR IV PRN (12:21)
[2023-03-21] MEDS ORDERED: PROMETHAZINE HCL 6.25 MG in SODIUM CHLORIDE 0.9% 50 ML IV PRN (12:21)
[2023-03-21] MEDS ORDERED: fentaNYL citrate PF 100 MCG/2 ML VIAL IV PRN (12:21)
[2023-03-21] MEDS ORDERED: ONDANSETRON INJ 2 MG/ML 2 ML VIAL IV PRN (12:21)
[2023-03-21] MEDS ORDERED: fentaNYL citrate PF 100 MCG/2 ML VIAL ONE ×3 (12:51→14:05)
[2023-03-21] MEDS ORDERED: MIDAZOLAM HCL 1 MG/ML 2ML VIAL ONE (12:51)
[2023-03-21] MEDS ORDERED: LIDOCAINE 2% 2 ML VIAL/AMP(20MG/ML) INFIL ONE (13:13)
[2023-03-21] MEDS ORDERED: DEXAMETHASONE SOD INJ 4 MG/ML VIAL ONE (13:13)
[2023-03-21] MEDS ORDERED: ONDANSETRON INJ 2 MG/ML 2 ML VIAL ONE (13:13)
[2023-03-21] MEDS ORDERED: PROPOFOL IV EMULSION 10 MG/ML 20 ML VIAL IV ONE (13:13)
[2023-03-21] MEDS ORDERED: SUCCINYLCHOLINE CHLORIDE 20 MG/ML 10 ML VIAL IV ONE (13:14)
[2023-03-21] MEDS ORDERED: ROCURONIUM BROMIDE 10 MG/ML 5 ML VIAL IV ONE (13:14)
[2023-03-21] MEDS ORDERED: GLUCAGON FOR INJ 1 MG VIAL ONE (13:15)
[2023-03-21] MEDS ORDERED: ESMOLOL HCL INJ 10 MG/ML 10ML VIAL IV ONE (13:41)
--- NOTE | 2023-03-21 13:47 | Hospitalist Progress Note ---
Date of Service March 21, 2023 Assessment & Plan (1) Pancreatic pseudocyst: Plan: Acute, unstable with associated sepsis syndrome - high risk - He is currently NPO for pending procedure - Xarelto on hold for procedure - GI consulted and following, plan for EGD/EUS for drainage of the pseudocyst today - Leukocytosis & febrile, meets for sepsis syndrome - Repeat CBC this AM reviewed, wbc count up to 15.64 from 14.49 - Continue IVF, increase rate to 150 cc/hr - Continue Zosyn - No blood cultures obtained and at this point the data would be skewed by the IV abx he has received, but will add for completeness - CMP reviewed, LFTs within normal limits (2) Abdominal pain, acute, epigastric: Plan: Acute/unstable - high risk as he is receiving IV narcotics for pain control - secondary to the pancreatic pseudocyst - Asked RN to medicate for pain this AM with IV Dilaudid (3) Deep vein thrombosis: Plan: Chronic, h/o such - Xarelto on hold for procedure - Will resume when GI agreeable (4) Hypertension: Plan: Chronic and stable - Continue Lisinopril (5) Chronic venous insufficiency: Plan: Chronic, h/o venous ablation with Vascular Med - follows with wound clinic-consult wound RN Plan Will continue to monitor on med/surg but if should show any signs of hemodynamic instability will have low threshold to transfer to PCU. For now, he is medically stable. DVT ppx will be covered with resumption of xarelto. For now, recommend ambulation, will resume as early as possible after d/w GI. Repeat labs in AM ordered. Above plan of care has been d/w Dr. Mccurdy. Admission and Anticipated Discharge Date Admission Date: March 20, 2023 Subjective Patient seen on daily rounds this morning. He reports some epigastric discomfort rating a 7/10. He denies n/v/d, chest pain, or dyspnea. Did have a fever this AM of 38.2 associated with tachycardia and diaphoresis. He is for EUS to drain pancreatic pseudocyst this afternoon with Dr. Pressley. Physical Exam Physical Exam: GENERAL: 43 yo Well-developed, well-nourished M. AAOx4. NAD. LUNGS: Clear to auscultation bilaterally w/o W/R/R. CARDIOVASCULAR: Regular rate and rhythm. ABDOMEN: Soft, non-tender and non-distended. BS normoactive x 4 quad. EXTREMITIES: No edema. Non-tender. Peripheral pulses +2/4. Results & Data Results & Data Vital Signs (Past 12 Hours) Vital Signs Temp Pulse Resp BP Pulse Ox O2 Del Method 03/21/23 11:28 36.9 C 112 H 18 133/85 97 Room Air 03/21/23 09:10 125 H 03/21/23 08:20 37.1 C 131 H 18 130/86 94 Room Air 03/21/23 07:17 38.2 C H 131 H 18 130/85 95 Room Air Laboratory Results 03/21/23 06:08 03/21/23 06:08 PG Care Time/CCT Total # of Minutes Spent Total Time Spent with Patient: Total time spent is greater than 50% in coordination of care (as documented) at patient's floor/unit and/or counseling patient: Coding Level of Care Code 56061 SUB INP/OBS CARE 3/50MIN Diagnoses Pancreatic pseudocyst K86.3 Abdominal pain, acute, epigastric R10.13 Deep vein thrombosis I82.409 Hypertension I10 Hypertension type: unspecified Chronic venous insufficiency I87.2 (4) Hypertension Hypertension type: unspecified Qualified Code(s): I10 - Essential (primary) hypertension
[2023-03-21] MEDS ORDERED: PHENYLEPHRINE HCL 10 MG/ML VIAL ONE (14:13)
--- NOTE | 2023-03-21 14:32 | Operative Report ---
Post Operative Report Pre & Post Diagnosis Operation Date: 03/21/23 08:40 Pre-Op Diagnosis: ABDOMINAL PAIN AND PANCREATIC PSEUDOCYST Post-Op Diagnosis: ERCP: ILEO STRICTURE EUS/EGD: biliary stricuture and pseudocyst I identified the patient and participated in the time-out.: Yes Procedure Operation Date: 03/21/23 08:40 Actual Procedures p Endoscopic Retrograde Cholangiopancreato - Sachi Pressley MD s Endoscopic Ultrasonography Upper - Sachi Pressley MD s Esophagogastroduodenoscopy - Sachi Pressley MD Surgeon Sachi Pressley MD Concrete Paving Supervisor None Estimated Blood Loss 0 Findings See Below (CBD stent placed, two double pigtail stents placed to drain the pseudocyst) Specimens None Description of Procedure EUS/ERCP I attest to the content of the Intraoperative Record and any orders documented therein. Any exceptions are noted below.
--- NOTE | 2023-03-21 14:44 | GI REPORT ---
Patient Name: Anthony Sharif Procedure Date: 03/21/2023 12:43 PM Date of : 1980 Admit Type: Inpatient Age: 43 Gender: Male Attending MD: Sachi Pressley MD, Procedure: ERCP Providers: Sachi Pressley MD Referring MD: Christos Mccurdy Indications: Abnormal abdominal CT Medicines: General Anesthesia Complications: No immediate complications. Estimated Blood Loss: Estimated blood loss: none. Procedure: Pre-Anesthesia Assessment: - Prior to the procedure, a History and Physical was performed, and patient medications, allergies and sensitivities were reviewed. The patient's tolerance of previous anesthesia was reviewed. - The risks and benefits of the procedure and the sedation options and risks were discussed with the patient. All questions were answered and informed consent was obtained. - Patient identification and proposed procedure were verified prior to the procedure by the physician and the nurse. The procedure was verified in the procedure room. - Pre-procedure physical examination revealed no contraindications to sedation. After obtaining informed consent, the scope was passed under direct vision. Throughout the procedure, the patient's blood pressure, pulse, and oxygen saturations were monitored continuously. The Duodenoscope was introduced through the mouth, and advanced to the duodenum and used to inject contrast into the bile duct. The ERCP was accomplished without difficulty. The patient tolerated the procedure well. Findings: The tea bag machine tender film was normal. The esophagus was successfully intubated under direct vision. The scope was advanced to a normal major papilla in the descending duodenum without detailed examination of the pharynx, larynx and associated structures, and upper GI tract. The upper GI tract was grossly normal. The major papilla was edematous. PD could not be cannulated. A biliary pre-cut sphincterotomy was made with a monofilament needle knife using a freehand technique using ERBE electrocautery. There was no post-sphincterotomy bleeding. A 0.025 inch x 270 cm angled Visiglide wire was passed into the biliary tree. The short-nosed traction sphincterotome was passed over the guidewire and the bile duct was then deeply cannulated. Contrast was injected. I personally interpreted the bile duct images. Ductal flow of contrast was adequate. Image quality was adequate. Contrast extended to the main bile duct. Opacification of the entire biliary tree was successful. The maximum diameter of the ducts was 10 mm. The lower third of the main bile duct contained a single localized stenosis. The biliary sphincterotomy was extended with a monofilament traction (standard) sphincterotome using ERBE electrocautery. There was no post-sphincterotomy bleeding. The biliary tree was swept with an 8.5 mm balloon starting at the bifurcation. Sludge was swept from the duct. One 10 Fr by 7 cm plastic biliary stent with a single external flap and a single internal flap was placed into the common bile duct. Bile flowed through the stent. The stent was in good position. Impression: - A distal benign appearing and inflammatory CBD stricture related to acute/chronic pancreatitis. - A biliary sphincterotomy was performed. - The biliary tree was swept and sludge was found. - One plastic biliary stent was placed into the common bile duct. - Pancreatic duct could not be cannulated. Recommendation: - Perform an upper endoscopic ultrasound (UEUS) today. - Repeat ERCP in 3 months to remove stent. Sachi Pressley MD 03/21/2023 2:44:24 PM This report has been signed electronically. Note Initiated On: 03/21/2023 12:43 PM Number of Addenda: 0 I attest to the content of the Intraoperative Record and orders documented therein, exceptions below {[id number]}
--- NOTE | 2023-03-21 14:48 | Fluoroscopy Report ---
[place] ERCP biliary ductal CLINICAL HISTORY: ERCP. COMPARISON STUDY: CT of the abdomen and pelvis March 20, 2023. FLUOROSCOPY TIME: 2 minutes and 56 seconds. Ka, r: 85.47 mGy FLUOROSCOPIC IMAGES: 15 FINDINGS: Fluoroscopy was provided during ERCP. The common bile duct was cannulated and balloon sweep through the common bile duct was performed with placement of a common bile duct stent. The stent is well-positioned. Two cyst gastrostomy stents were then placed to drain the pseudocyst shown on recent CT. IMPRESSION: Fluoroscopy provided during ERCP, as described above. ACT 112: Negative or not required by law. Electronically signed by: Manjit Cali M.D. 03/21/2023 2:47 PM
--- NOTE | 2023-03-21 14:50 | GI REPORT ---
Patient Name: Anthony Sharif Procedure Date: 03/21/2023 12:42 PM Date of : 1980 Admit Type: Inpatient Age: 43 Gender: Male Attending MD: Sachi Pressley MD, Procedure: Upper EUS Providers: Sachi Pressley MD Referring MD: Christos Mccurdy Indications: Abnormal abdominal/pelvic CT scan, For cyst enterostomy Medicines: General Anesthesia Complications: No immediate complications. Estimated Blood Loss: Estimated blood loss: none. Procedure: Pre-Anesthesia Assessment: - Prior to the procedure, a History and Physical was performed, and patient medications, allergies and sensitivities were reviewed. The patient's tolerance of previous anesthesia was reviewed. - The risks and benefits of the procedure and the sedation options and risks were discussed with the patient. All questions were answered and informed consent was obtained. - Patient identification and proposed procedure were verified prior to the procedure by the physician and the nurse. The procedure was verified in the procedure room. - Pre-procedure physical examination revealed no contraindications to sedation. After obtaining informed consent, the endoscope was passed under direct vision. Throughout the procedure, the patient's blood pressure, pulse, and oxygen saturations were monitored continuously. The scope was introduced through the mouth, and advanced to the second part of duodenum. The upper EUS was accomplished without difficulty. The patient tolerated the procedure well. Findings: ENDOSONOGRAPHIC FINDING: : An anechoic lesion suggestive of a pseudocyst/ WON was identified in the pancreatic body. The lesion measured 100 mm in maximal cross-sectional diameter. There was a single compartment thinly septated. The outer wall of the lesion was thick. There was no associated mass. There was internal debris within the fluid-filled cavity. The decision was made to create a cystogastrostomy. Once an appropriate position in the stomach was identified, the common wall between the stomach and the cyst was interrogated utilizing color Doppler imaging to identify interposed vessels. The stomach wall and the cyst were punctured under endosonographic guidance with the 19 gauge needle. Fluid was aspirated. The cyst was injected with full strength ionic contrast and a cystogram was obtained under fluoroscopy. A 0.025 inch x 450 cm angled Visiglide wire was inserted into the cyst under fluoroscopic guidance and allowed to coil several times. The opening was dilated with a 4 mm balloon dilator. Two 7 cm 10 Fr Rk-Cook double pigtail stents were placed into the cyst through the cystogastrostomy using a stent introducer set. The stents were successfully placed. Impression: - A large perigastric pseudocyst was seen, Cystogastrostomy was performed and two 10 Fr double pigtail stents were placed. Recommendation: - Return patient to [facility] for [facility] care. - Obtain CT scan abdomen in 3 weeks for follow up. - Continue ABx. - Hold all anticoagulation for one week. Patient is still at high risk for bleeding. - Perform an upper GI endoscopy in 3 weeks to explore the cyst and do necrosectomy if needed. Sachi Pressley MD 03/21/2023 2:50:09 PM This report has been signed electronically. Note Initiated On: 03/21/2023 12:42 PM Number of Addenda: 0 I attest to the content of the Intraoperative Record and orders documented therein, exceptions below {[id number]}
--- NOTE | 2023-03-21 15:13 | Anesthesiology Progress Note ---
Date of Service March 21, 2023 Anesthesia Post Procedure Vital Signs Vital Signs: Temp Pulse Pulse Pulse Resp BP Pulse Ox 03/21/23 15:05 103 H 22 126/77 96 03/21/23 14:55 97 H 22 115/69 100 03/21/23 14:45 37.1 C 106 H 16 113/72 100 03/21/23 11:28 36.9 C 112 H 18 133/85 97 03/21/23 09:10 125 H 03/21/23 08:20 37.1 C 131 H 18 130/86 94 03/21/23 07:17 38.2 C H 131 H 18 130/85 95 03/20/23 20:15 03/20/23 20:15 03/20/23 20:15 36.8 C 106 H 20 167/110 H 96 03/20/23 18:01 88 20 151/113 H 98 03/20/23 16:22 90 14 169/107 H 94 03/20/23 15:59 89 03/20/23 15:43 90 168/108 H 97 O2 Del Method O2 Flow Rate 03/21/23 15:05 Room Air 03/21/23 14:55 Oxymask 5 03/21/23 14:45 Oxymask 5 03/21/23 11:28 Room Air 03/21/23 09:10 03/21/23 08:20 Room Air 03/21/23 07:17 Room Air 03/20/23 20:15 Room Air 03/20/23 20:15 Room Air 03/20/23 20:15 Room Air 03/20/23 18:01 Room Air 03/20/23 16:22 Room Air 03/20/23 15:59 03/20/23 15:43 Room Air Pain Intensity Abdomen: Pain Intensity: 3 Transfer of Care Handoff Completed per policy Notes Mental Status: alert / awake / arousable Patient Amnestic to Procedure: Yes Nausea / Vomiting: adequately controlled Pain: adequately controlled Airway Patency, RR, SpO2: stable & adequate BP & HR: stable & adequate Hydration State: stable & adequate Anesthetic Complications: no major complications apparent
[2023-03-21] MEDS: allopurinoL 100 MG TAB PO SCH (15:47)
[2023-03-21] MEDS: PANTOprazole 40 MG TAB PO SCH (15:47)
[2023-03-21] MEDS: lisinopril 5 MG TAB PO SCH (16:01)
[2023-03-21] MEDS ORDERED: PIPERACILLIN/TAZOBACTAM 4.5 GM in DEXTROSE 5% 100 ML IV SCH (22:00)
[2023-03-22] MEDS: LACTATED RINGER'S 1,000 ML IV SCH ×3 (04:19→18:09)
[2023-03-22] MEDS: PIPERACILLIN/TAZOBACTAM 4.5 GM in DEXTROSE 5% 100 ML IV SCH ×3 (06:06→21:17)
[2023-03-22 06:42] LABS: Basophils # (auto) 0.02 K/uL (0-0.2); Basophils % (auto) 0.1 %; Eosinophils # (auto) 1.32 K/uL (0-0.50); Eosinophils % (auto) 8.9 %; Hemoglobin 11.3 g/dl (14.0-18.0); Immature Granulocytes # (auto) 0.13 K/uL (0.01-0.20); Immature Granulocytes % (auto) 0.9 %; Lymphocytes # (auto) 0.17 K/uL (1.2-3.4); Lymphocytes % (auto) 1.1 %; Mean Corpuscular Hemoglobin 33.4 pg (25.0-34.0); Mean Corpuscular Hgb Conc 34.2 g/dL (32.0-36.0); Mean Corpuscular Volume 97.6 fL (80.0-100.0); Mean Platelet Volume 8.7 fL (9.4-12.4); Monocytes # (auto) 0.58 K/uL (0.11-0.59); Monocytes % (auto) 3.9 %; Neutrophils # (auto) 12.68 K/uL (1.40-6.50); Neutrophils % (auto) 85.1 %; Platelet Count 199 K/uL (130-400); RDW Coefficient of Variation 13.5 % (11.5-14.5); RDW Standard Deviation 48.4 fL (36.4-46.3); Red Blood Count 3.38 M/uL (4.70-6.10)
[2023-03-22 07:29] LABS: Albumin Globulin Ratio 1.2 (0.9-2); BUN Creatinine Ratio 11.7 (10-20); Bilirubin,Total 1.5 mg/dl (0.2-1.0); Calcium 8.3 mg/dl (8.6-10.3); Est GFR (African American) 54.8 ml/min; Est GFR (Non-African American) 47.3 ml/min; Globulin 2.6 gm/dl (2.5-4.0); Magnesium 1.9 mg/dl (1.7-2.4); Potassium 3.6 mmol/L (3.5-5.1); Total Protein 5.6 gm/dl (6.0-8.3)
--- NOTE | 2023-03-22 08:48 | Hospitalist Progress Note ---
Date of Service March 22, 2023 Assessment & Plan (1) Pancreatic pseudocyst: Plan: Acute, unstable with associated sepsis syndrome - high risk - Patient is s/p EGD/ERCP/EUS 03/21/23 The common bile duct was cannulated and balloon sweep through the common bile duct was performed with placement of a common bile duct stent. The stent is well-positioned. Two cyst gastrostomy stents were then placed to drain the pseudocyst shown on recent CT. - Patient is tolerating clear liquid diet can increase to low fat low fiber when cleared by GI - Per GI recommendations continue to hold Xarelto x 1 week (patient is still at high risk for bleeding) - Repeat CBC this AM reviewed and WBC down to 14.9 from 15.64 - Continue Zosyn - Blood cultures added for completeness, likely skewed due to drawn after antibx, currently pending - CMP reviewed, LFTs with a mild bump in T Bili and AST likely due to GI procedure yesterday, will continue to monitor Need repeat CT and EGD in 3 weeks per GI Need CBD stent removed in 3 months per GI (2) Abdominal pain, acute, epigastric: Plan: Acute and improving - no longer requiring IV Dilaudid has alejandro had oral Tylenol today - secondary to the pancreatic pseudocyst (3) Deep vein thrombosis: Plan: Chronic, h/o such - Xarelto held for ERCP/EUS 03/21 and per GI rec continue to hold for 1 week due to still at a high bleed risk - Will resume when GI agreeable (1 week) (4) Hypertension: Plan: Chronic and stable - Continue Lisinopril (5) Chronic venous insufficiency: Plan: Chronic, h/o venous ablation with Vascular Med - follows with wound clinic - Per patient had Coban wrap exchanged LLE yesterday. Per wound note to have changed Friday and Fridays Plan Will continue to monitor on med/surg but if should show any signs of hemodynamic instability will have low threshold to transfer to PCU. For now, he is medically stable. DVT ppx will be covered with resumption of xarelto. For now, recommend ambulation, will resume as early as possible after d/w GI. Also discussing with GI if can advance diet. Repeat labs in AM ordered. Above plan of care has been d/w Dr. Mccurdy. Admission and Anticipated Discharge Date Admission Date: March 20, 2023 Subjective Patient seen this AM on rounds. He states he is feeling better today compared to admission. He has much less abdominal pain. He admits to loose stool x 2 since the procedures. Yesterday patient underwent a EGD/EUS/ERCP. Patient is tolerating a clear liquid diet. Review of Systems Constitutional: + fatigue; no fever and no sweats Respiratory: no cough, no chest congestion, no dyspnea and no hemoptysis Cardiovascular: + edema; no chest pain, no dyspnea and no calf pain Gastrointestinal: + abdominal pain, + early satiety, + nausea and + vomiting; no hematemesis, no dysphagia and no blood in stools light colored greasy stools Integumentary: Hx of venous stasis wounds left foot, per patient following with wound clinic and healing well Endocrine: no polydipsia, no polyphagia and no polyuria Physical Exam Neck: trachea midline, no thyromegaly Respiratory: normal respiratory effort, lungs clear to auscultation Cardiovascular: RRR, no murmur, no edema Extremities: no calf tenderness Gastrointestinal (Abdomen): Inspection/Auscultation: abdomen normal to inspection and normal bowel sounds Percussion/Palpation: + abdomen tender and abdomen soft; no guarding, abdomen not rigid and no hepatomegaly Neurologic: PERRL, EOMI, accommodation nl, no face palsy, no dysarthria Psychiatric: A+Ox3, euthymic affect Results & Data Results & Data Vital Signs (Past 12 Hours) Vital Signs Temp Pulse Resp BP Pulse Ox O2 Del Method 03/22/23 07:36 36.6 C 82 16 108/72 99 Room Air 03/22/23 02:11 36.6 C 71 18 104/66 99 Room Air 03/21/23 22:14 36.8 C 87 18 107/70 97 Room Air Laboratory Results Abnormal lab results 03/22/23 03/22/23 Range/Units 06:01 06:01 WBC 14.90 H (4.8-10.8) K/ul RBC 3.38 L (4.70-6.10) M/uL Hgb 11.3 L (14.0-18.0) g/dl Hct 33.0 L (42.0-52.0) % RDW Std Deviation 48.4 H (36.4-46.3) fL MPV 8.7 L (9.4-12.4) fL Neut # (Auto) 12.68 H (1.40-6.50) K/uL Lymph # (Auto) 0.17 L (1.2-3.4) K/uL Eos # (Auto) 1.32 H (0-0.50) K/uL Creatinine 1.71 H (0.6-1.4) mg/dl Glucose 152 H (70-99(Fasting)) mg/dl Calcium 8.3 L (8.6-10.3) mg/dl Total Bilirubin 1.5 H (0.2-1.0) mg/dl AST 76 H (13-39) U/L Alkaline Phosphatase 123 H (34-104) U/L Total Protein 5.6 L (6.0-8.3) gm/dl Albumin 3.0 L (3.4-5.0) gm/dl Diagnostic Findings Endo Retro Cholangiopancreatogram 03/21/23 00:00 [place] ERCP biliary ductal CLINICAL HISTORY: ERCP. COMPARISON STUDY: CT of the abdomen and pelvis March 20, 2023. FLUOROSCOPY TIME: 2 minutes and 56 seconds. Ka, r: 85.47 mGy FLUOROSCOPIC IMAGES: 15 FINDINGS: Fluoroscopy was provided during ERCP. The common bile duct was cannulated and balloon sweep through the common bile duct was performed with placement of a common bile duct stent. The stent is well-positioned. Two cyst gastrostomy stents were then placed to drain the pseudocyst shown on recent CT. IMPRESSION: Fluoroscopy provided during ERCP, as described above. ACT 112: Negative or not required by law. Electronically signed by: Manjit Cali M.D. 03/21/2023 2:47 PM EUS Impression: - A large perigastric pseudocyst was seen, Cystogastrostomy was performed and two 10 Fr double pigtail stents were placed. Recommendation: - Return patient to [facility] care[facility] - Obtain CT scan abdomen in 3 weeks for follow up. - Continue ABx. - Hold all anticoagulation for one week. Patient is still at high risk for bleeding. - Perform an upper GI endoscopy in 3 weeks to explore the cyst and do necrosectomy if needed. PG Care Time/CCT Total # of Minutes Spent Total Time Spent with Patient: Total time spent is greater than 50% in coordination of care (as documented) at patient's floor/unit and/or counseling patient: Coding Level of Care Code 81536 SUB INP/OBS CARE Diagnoses Pancreatic pseudocyst K86.3 Abdominal pain, acute, epigastric R10.13 Deep vein thrombosis I82.409 Hypertension I10 Hypertension type: unspecified Chronic venous insufficiency I87.2 (4) Hypertension Hypertension type: unspecified Qualified Code(s): I10 - Essential (primary) hypertension
[2023-03-22] MEDS: lisinopril 5 MG TAB PO SCH (09:10)
[2023-03-22] MEDS: allopurinoL 100 MG TAB PO SCH (09:11)
[2023-03-22] MEDS: PANTOprazole 40 MG TAB PO SCH (09:11)
[2023-03-22] MEDS: ACETAMINOPHEN 325 MG TAB PO PRN ×2 (15:26→15:32)
[2023-03-22 18:23] LABS: Appearance Urine Clear (Clear); Bacteria Urine Automated Negative (Negative); Bilirubin Urine 1+ (Negative); Blood Urine Negative (Negative); Cast Urine Automated 0 /lpf (0-5); Color Urine Dark Yellow; Glucose Urine UA Negative (Negative); Ketones Urine Trace (Negative); Leukocyte Esterase Urine Trace (Negative); Nitrite Urine Negative (Negative); Protein Urine 2+ (Negative); RBC Urine Automated 0-4 /hpf (0-4); Specific Gravity Urine 1.028 (1.000-1.030); Urobilinogen Urine Negative (Negative); pH Urine 6.5 (4.5-7.5)
[2023-03-23] MEDS: LACTATED RINGER'S 1,000 ML IV SCH ×4 (00:36→19:40)
[2023-03-23] MEDS: PIPERACILLIN/TAZOBACTAM 4.5 GM in DEXTROSE 5% 100 ML IV SCH ×3 (06:03→21:58)
[2023-03-23 06:49] LABS: Hematocrit (blood only) 28.9 % (42.0-52.0); Mean Corpuscular Hemoglobin 33.9 pg (25.0-34.0); Mean Corpuscular Hgb Conc 34.6 g/dL (32.0-36.0); Mean Platelet Volume 9.1 fL (9.4-12.4); Platelet Count 180 K/uL (130-400); RDW Coefficient of Variation 13.4 % (11.5-14.5); RDW Standard Deviation 47.9 fL (36.4-46.3); Red Blood Count 2.95 M/uL (4.70-6.10); White Blood Count 10.87 K/ul (4.8-10.8)
[2023-03-23 07:09] LABS: Albumin Globulin Ratio 1.2 (0.9-2); Albumin Level 2.6 gm/dl (3.4-5.0); BUN Creatinine Ratio 9.3 (10-20); Calcium 7.7 mg/dl (8.6-10.3); Creatinine Clr Calc Pharmacy 71.1 ml/min; Est GFR (Non-African American) 50.9 ml/min; Globulin 2.2 gm/dl (2.5-4.0); Total Protein 4.8 gm/dl (6.0-8.3)
[2023-03-23] MEDS ORDERED: POTASSIUM CHLORIDE CRTAB 20 MEQ TABCR PO STA (08:01)
[2023-03-23] MEDS: PANTOprazole 40 MG TAB PO SCH (08:52)
[2023-03-23] MEDS: lisinopril 5 MG TAB PO SCH (08:52)
[2023-03-23] MEDS: allopurinoL 100 MG TAB PO SCH (08:54)
--- NOTE | 2023-03-23 13:24 | Hospitalist Progress Note ---
Date of Service March 23, 2023 Assessment & Plan (1) Pancreatic pseudocyst: Plan: Acute, unstable with associated sepsis syndrome - high risk - Patient is s/p EGD/ERCP/EUS 03/21/23 The common bile duct was cannulated and balloon sweep through the common bile duct was performed with placement of a common bile duct stent. The stent is well-positioned. Two cyst gastrostomy stents were then placed to drain the pseudocyst shown on recent CT. - Patient was increased to low fat, low fiber diet - Per GI recommendations continue to hold Xarelto x 1 week (patient is still at high risk for bleeding) - Repeat CBC this AM reviewed and WBC down to 14.9 from 15.64 - Continue Zosyn - Blood cultures added for completeness, likely skewed due to drawn after antibx, currently pending - CMP reviewed, LFTs downtrending, bump yesterday likely procedural related Need repeat CT and EGD in 3 weeks per GI Need CBD stent removed in 3 months per GI (2) Abdominal pain, acute, epigastric: Plan: Acute and improving - no longer requiring IV Dilaudid has alejandro had oral Tylenol today - secondary to the pancreatic pseudocyst (3) Deep vein thrombosis: Plan: Chronic, h/o such - Xarelto held for ERCP/EUS 03/21 and per GI rec continue to hold for 1 week due to still at a high bleed risk - Will resume when GI agreeable (1 week) (4) Hypertension: Plan: Chronic and stable - Continue Lisinopril (5) Chronic venous insufficiency: Plan: Chronic, h/o venous ablation with Vascular Med - follows with wound clinic - Per patient had Coban wrap exchanged LLE yesterday. Per wound note to have changed Friday and Fridays Plan Will continue to monitor on med/surg . Recommend up and out of bed. SCDs. Continue to hold Xarelto for 1 week per GI. Advanced diet today. Hope to discharge tomorrow. (has appt Friday with surgery about possible CCY) will need repeat CTAP in 3 weeks with GI follow up repeat endoscopy. Also will need repeat EGD and CBD stent removal in 3 months. Admission and Anticipated Discharge Date Admission Date: March 20, 2023 Subjective Patient seen this morning in rounds. He states he is continuing to feel better and would like something more to eat besides the clear liquids. He denies any n ausea, pain or vomiting. Review of Systems Constitutional: + fatigue; no fever and no sweats Respiratory: no cough, no chest congestion, no dyspnea and no hemoptysis Cardiovascular: + edema; no chest pain, no dyspnea and no calf pain Gastrointestinal: + abdominal pain, + early satiety, + nausea and + vomiting; no hematemesis, no dysphagia and no blood in stools light colored greasy stools Integumentary: Hx of venous stasis wounds left foot, per patient following with wound clinic and healing well Endocrine: no polydipsia, no polyphagia and no polyuria Physical Exam Neck: trachea midline, no thyromegaly Respiratory: normal respiratory effort, lungs clear to auscultation Cardiovascular: RRR, no murmur, no edema Extremities: no calf tenderness Gastrointestinal (Abdomen): Inspection/Auscultation: abdomen normal to inspection and normal bowel sounds Percussion/Palpation: + abdomen tender and abdomen soft; no guarding, abdomen not rigid and no hepatomegaly Neurologic: PERRL, EOMI, accommodation nl, no face palsy, no dysarthria Psychiatric: A+Ox3, euthymic affect Results & Data Results & Data Vital Signs (Past 12 Hours) Vital Signs Temp Pulse Resp BP Pulse Ox O2 Del Method 03/23/23 08:54 108/71 03/23/23 07:31 37 C 89 18 104/65 97 Room Air Laboratory Results Abnormal lab results 03/22/23 03/23/23 03/23/23 Range/Units 18:10 05:59 05:59 WBC 10.87 H (4.8-10.8) K/ul RBC 2.95 L (4.70-6.10) M/uL Hgb 10.0 L (14.0-18.0) g/dl Hct 28.9 L (42.0-52.0) % RDW Std Deviation 47.9 H (36.4-46.3) fL MPV 9.1 L (9.4-12.4) fL Potassium 3.0 L (3.5-5.1) mmol/L Chloride 108 H (98-107) mmol/L Creatinine 1.61 H (0.6-1.4) mg/dl BUN/Creatinine Ratio 9.3 L (10-20) Glucose 107 H (70-99(Fasting)) mg/dl Calcium 7.7 L (8.6-10.3) mg/dl AST 74 H (13-39) U/L ALT 53 H (7-52) U/L Alkaline Phosphatase 122 H (34-104) U/L Total Protein 4.8 L (6.0-8.3) gm/dl Albumin 2.6 L (3.4-5.0) gm/dl Globulin 2.2 L (2.5-4.0) gm/dl Urine Protein 2+ H (Negative) Urine Ketones Trace H (Negative) Urine Bilirubin 1+ H (Negative) Ur Leukocyte Esterase Trace H (Negative) U Epithel Cells (Auto) 10-20 H (0-5) /lpf PG Care Time/CCT Total # of Minutes Spent Total Time Spent with Patient: Total time spent is greater than 50% in coordination of care (as documented) at patient's floor/unit and/or counseling patient: Coding Level of Care Code 70029 SUB INP/OBS CARE 11/20MIN Diagnoses Pancreatic pseudocyst K86.3 Abdominal pain, acute, epigastric R10.13 Deep vein thrombosis I82.409 Hypertension I10 Hypertension type: unspecified Chronic venous insufficiency I87.2 (4) Hypertension Hypertension type: unspecified Qualified Code(s): I10 - Essential (primary) hypertension
[2023-03-24] MEDS: LACTATED RINGER'S 1,000 ML IV SCH ×2 (01:43→08:22)
[2023-03-24] MEDS: PIPERACILLIN/TAZOBACTAM 4.5 GM in DEXTROSE 5% 100 ML IV SCH (05:33)
[2023-03-24 05:56] LABS: Hematocrit (blood only) 28.5 % (42.0-52.0); Mean Corpuscular Hemoglobin 33.4 pg (25.0-34.0); Mean Corpuscular Hgb Conc 35.1 g/dL (32.0-36.0); Mean Corpuscular Volume 95.3 fL (80.0-100.0); Platelet Count 168 K/uL (130-400); RDW Coefficient of Variation 13.2 % (11.5-14.5); RDW Standard Deviation 45.8 fL (36.4-46.3); Red Blood Count 2.99 M/uL (4.70-6.10); White Blood Count 9.27 K/ul (4.8-10.8)
[2023-03-24 06:09] LABS: Albumin Level 2.6 gm/dl (3.4-5.0); BUN Creatinine Ratio 7.9 (10-20); Bilirubin,Total 0.8 mg/dl (0.2-1.0); Calcium 7.8 mg/dl (8.6-10.3); Creatinine Clr Calc Pharmacy 69.8 ml/min; Est GFR (African American) 57.7 ml/min; Est GFR (Non-African American) 49.8 ml/min; Globulin 2.5 gm/dl (2.5-4.0); Potassium 3.2 mmol/L (3.5-5.1); Total Protein 5.1 gm/dl (6.0-8.3)
[2023-03-24] MEDS: PANTOprazole 40 MG TAB PO SCH (08:24)
[2023-03-24] MEDS: allopurinoL 100 MG TAB PO SCH (08:24)
[2023-03-24] MEDS: lisinopril 5 MG TAB PO SCH (08:24)
[2023-03-24] MEDS ORDERED: POTASSIUM CHLORIDE CRTAB 20 MEQ TABCR PO STA (08:34)
--- NOTE | 2023-03-24 12:48 | Discharge Summary ---
Date of Service March 24, 2023 Admission HPI Per Admitting Provider Anthony Sharif is a 43 year old male with past medical history of chronic pancreatitis, hx of alcohol abuse, HTN, CKD, GERD, vitamin D deficiency, DVT and chronic LE wounds and gall bladder sludge and told needs a CCY but needs to be done at a tertiary center (has appt with [facility] at [facility] in the future)who presented to the ER today with complaints of epigastric abdominal pain, nausea and vomiting. Patient states that yesterday he began to have epigastric abdominal pain that radiated through to the back. He states the pain was sharp and was similar to his previous pancreatitis episodes but "different" and not nearly as severe of pain. He state he was very nauseated after eating and then began to vomit last night and continued to vomit today. His emesis was nonbloody and nonbilious. He admits to light colored greasy stools. He states he used to abuse alcohol and now only drinks occasionally. His last alcoholic drink was last week per patient. He tells me he has had 2 documented episodes of pancreatis. First was last fall and most recent was 11/2022. Patient has had multiple EUS in the past with Dr Pressley. Most recent EUS was 01/09/22 and revealed 30mm pseudocyst/WON and was noted to have significantly improved from previous imaging. Patient was evaluated in the ED and had CTAP that revealed a interval developement of a large complex fluid collection adjacent to or within the wall of the stomach measuring 18x8cm - likely could represent a pancreatic pseudocyst. The ER physican spoke with Dr Pressley who recommended patient be NPO at midnight and hold his Xarelto for EUS and possible drainage tomorrow. Principal Diagnosis pancreatic pseudocyst s/p ERCP and EUS for CBD stenting and cyst drainage Discharge Exam GENERAL: 43 yo Well-developed, well-nourished M. AAOx4. NAD. LUNGS: Clear to auscultation bilaterally w/o W/R/R. CARDIOVASCULAR: Regular rate and rhythm. ABDOMEN: Soft, non-tender and non-distended. BS normoactive x 4 quad. EXTREMITIES: No edema. Non-tender. Peripheral pulses +2/4. Discharge Data Allergies Allergy/AdvReac Type Severity Reaction Status Date / Time cephalexin Allergy Mild Rash Verified 03/20/23 19:39 Consultations 05/25/23 22:05 Consult Gastroenterology Routine Procedures Performed Operation Date: 03/21/23 08:40 Actual Procedures p Endoscopic Retrograde Cholangiopancreato - Sachi Pressley MD s Endoscopic Ultrasonography Upper - Sachi Pressley MD s Esophagogastroduodenoscopy - Sachi Pressley MD Ordered Studies Abdomen/Pelvis CT 03/20/23 14:23 CT OF THE ABDOMEN AND PELVIS WITH CONTRAST CLINICAL HISTORY: Epigastric pain. COMPARISON STUDY: CT of the abdomen and pelvis December 09, 2022. TECHNIQUE: Following IV administration of 89 mL of Optiray, axial images of the abdomen and pelvis were obtained from the lung bases to the proximal femurs. Images were reviewed in the axial, sagittal, and coronal planes. IV contrast was administered without complication. Automated exposure control was utilized for the study. A dose lowering technique was utilized adhering to the principles of ALARA. CT DOSE: 1185.77 mGy.cm FINDINGS: Lung bases are unremarkable. No pneumatosis, free air or portal venous gas is present. Moderate dilatation of the pancreatic duct, measuring 8 mm, is similar to CT of December 09, 2022. This is nonspecific but may be related to a pseudocyst within the pancreatic head that measures 3.7 x 3 cm. This pseudocyst has decreased in size since CT of December 09, 2022 when it measured 4.6 x 3.4 cm. Pancreatic glandular atrophy is again noted. No well-defined pancreatic mass is identified. There has been interval development of a large complex fluid collection adjacent to or within the wall of the stomach. This measures approximately 18 x 8 cm. This contains dependent material with rim enhancement. This has significant mass effect upon the stomach which appears narrowed. There is gastric mucosal thickening. This collection is new since CT of December 09, 2022. There is mild stranding adjacent to this collection with a few additional tiny adjacent fluid collections. These extend into the mesentery. No additional large fluid collections are present. The splenic vein is mildly attenuated but patent. The main portal vein is patent. The left portal pain is diminutive. This is unchanged. The spleen, adrenal glands and kidneys are normal. Is no evidence for a bowel obstruction. Trace fluid within the pelvis is noted. The appendix is normal. No pelvic fluid collections. No pseudoaneurysm is identified on this non-CTA exam. IMPRESSION: 1. Interval development of a large complex fluid collection adjacent to or within the wall of the stomach which measures approximately 18 x 8 cm. This is suggestive of a pseudocyst and may reflect a gastric intramural pseudocyst or a perigastric pseudocyst with significant mass effect upon the stomach and associated gastric mucosal thickening. Sterility cannot be assessed by CT however no gas within this collection. 2. Pancreatic glandular atrophy consistent with chronic pancreatitis. Decrease in size of the pancreatic head pseudocyst. Moderate pancreatic ductal dilatation which is indeterminate in etiology but may be related to the pseudocyst. No underlying mass however imaging follow-up to ensure stability/resolution to exclude this possibility is recommended. 3. Upper abdominal stranding. This is likely related to the pseudocyst however superimposed acute pancreatitis could appear similar. 4. No bowel obstruction. ACT 112: Negative or not required by law. Electronically signed by: Manjit Cali M.D. 03/20/2023 4:04 PM Chest X-Ray 03/20/23 14:23 XR chest 1V portable HISTORY: Epigastric abdominal pain. COMPARISON: Chest 01/17/2023. FINDINGS: The lungs are clear. Cardiac silhouette is normal in size. No pleural effusions. No pneumothorax. IMPRESSION: No acute process. ACT 112: Negative or not required by law. Electronically signed by: Omar Duque M.D. 03/20/2023 3:08 PM Endo Retro Cholangiopancreatogram 03/21/23 00:00 [place] ERCP biliary ductal CLINICAL HISTORY: ERCP. COMPARISON STUDY: CT of the abdomen and pelvis March 20, 2023. FLUOROSCOPY TIME: 2 minutes and 56 seconds. Ka, r: 85.47 mGy FLUOROSCOPIC IMAGES: 15 FINDINGS: Fluoroscopy was provided during ERCP. The common bile duct was cannulated and balloon sweep through the common bile duct was performed with placement of a common bile duct stent. The stent is well-positioned. Two cyst gastrostomy stents were then placed to drain the pseudocyst shown on recent CT. IMPRESSION: Fluoroscopy provided during ERCP, as described above. ACT 112: Negative or not required by law. Electronically signed by: Manjit Cali M.D. 03/21/2023 2:47 PM Hospital Course (1) Pancreatic pseudocyst: - Patient is s/p EGD/ERCP/EUS 03/21/23 The common bile duct was cannulated and balloon sweep through the common bile duct was performed with placement of a common bile duct stent. The stent is well-positioned. Two cyst gastrostomy stents were then placed to drain the pseudocyst shown on recent CT. - Patient was increased to low fat, low fiber diet - Per GI recommendations continue to hold Xarelto x 1 week (patient is still at high risk for bleeding) - Can resume on March 27, 2023 - Repeat CBC this AM reviewed and WBC down to 14.9 from 15.64 - Continue Zosyn - Blood cultures added for completeness, likely skewed due to drawn after antibx, NGTD - CMP reviewed, LFTs downtrending, bump yesterday likely procedural related - Follow up with GI upon dc for repeat CT and EGD in 3 weeks and CBD stent removal in 3 months (2) Abdominal pain, acute, epigastric: RESOLVED - no longer requiring IV Dilaudid has only had oral Tylenol today - secondary to the pancreatic pseudocyst (3) Deep vein thrombosis: Chronic, h/o such - Xarelto held for ERCP/EUS 03/21 and per GI rec hold for 1 week due to high bleeding risk - Will resume when GI agreeable (1 week) (4) Hypertension: Chronic and stable - Continue Lisinopril (5) Chronic venous insufficiency: Chronic, h/o venous ablation with Vascular Med - follows with wound clinic - Per patient had Coban wrap exchanged LLE yesterday. Per wound note to have changed Friday and Fridays Plan Patient is medically and hemodynamically stable for discharge home today with outpatient follow up with PCP and GI. No further indication for abx upon discharge. Plan of care d/w Dr. Mccurdy who is in agreement with aforementioned. Total Time Total Time Spent Total Time Spent (In Minutes): 40 minutes Discharge Plan Discharge Items Patient Disposition: Home - Self-Care Reason For Visit: ABDOMINAL PAIN AND PANCREATIC PSEUDOCYST Discharge Diagnosis: pancreatic pseudocyst Activity: Resume your previous activity Non-emergency contact: Primary Care Provider and Color Sprayer Call non-emergency contact if: you have any medication questions Follow-up/Referrals: Jaja Cali MD [Primary Care Provider] - Diet: Low Fiber and Low Fat Addtl Attending Provider Instructions: You were hospitalized due to abdominal pain and found to have a cyst on your pancreas that required drainage. You were placed on antibiotics in the event that your symptoms were due to an infection. You were taken for the procedure on 03/[address] Pressley. Your diet has been slowly advanced of which you are tolerating well and pain is now resolved. You will be discharged home today with plans for you to follow up with Dr. Pressley in 1-2 weeks. Please DO NOT resume your Xarelto until March 27, 2023. Resuming this medication prior to this date will increase your risk of bleeding. You will need to stop drinking ALL alcohol as this will continue to put you at a high risk for having reoccurrence of inflammation in your pancreas and cysts developing again. It is recommended that you follow up with your primary care provider within 1 week of discharge or sooner if needed. If you have any questions or concerns following your discharge, feel free to contact the nonemergency number listed on your discharge paperwork. In the event of a medical emergency, call 911. Pending Studies at Discharge: No Stand-Alone Forms: My [facility], Smoking Cessation Medications and DC Order Prescriptions: Continued pantoprazole 40 mg tablet,delayed release (DR/EC) 40 mg PO DAILY Qty: 90 3RF allopurinol 100 mg tablet 100 mg PO DAILY Qty: 90 3RF calcitriol 0.25 mcg capsule 0.25 mcg PO 3XWK Qty: 45 1RF Rx Instructions: TAKE THIS MED EVERY MON/WED/FRI lisinopril 5 mg tablet 5 mg PO DAILY Qty: 90 3RF ergocalciferol (vitamin D2) 1,250 mcg (50,000 unit) capsule 50,000 unit PO WEEKLY Qty: 12 0RF Rx Instructions: TAKE THIS MED EVERY FRIDAY Held Xarelto 20 mg tablet 20 mg PO DAILYBD Hold Instructions: Resume on 03/27/23. hold for 7 days following ERCP Rx Instructions: must administer with evening meal Discharge Orders: Discharge Order (Routine); Ordered 03/24/23 Ordered By: Gifty Pompa Admission Data Admit Date/Time: 03/20/23 18:35 Attending Provider: Christos Mccurdy Admit Provider: Kalli Ramirez Primary Care Provider: Jaja Cali Other Providers: Sachi Pressley Coding Level of Care Code 43573 INP/OBS DISCH >30 MIN Diagnoses Pancreatic pseudocyst K86.3 Abdominal pain, acute, epigastric R10.13 Deep vein thrombosis I82.409 Hypertension I10 Hypertension type: unspecified Chronic venous insufficiency I87.2
== END 2023-03-24 15:01 | disposition home or self-care (01) | DRG 439 ==
LOC: ED 14:13 → SUATTDRO 18:35 → INTOOBSV 18:35 → EDINP 18:35 → 3E 20:04

== ENCOUNTER 2023-03-30 09:58 | Inpatient (IN) ==
[2023-03-30] MEDS ORDERED: SODIUM CHLORIDE 0.9% 1000ML 1,000 ML IV ONE ×2 (10:24→11:34)
[2023-03-30] MEDS ORDERED: ONDANSETRON INJ 2 MG/ML 2 ML VIAL IV STA ×2 (10:24→20:30)
[2023-03-30] MEDS ORDERED: MoRPHine SULFATE 2 MG/ML CARP IV STA (10:24)
--- NOTE | 2023-03-30 10:29 | Emergency Department Note ---
History of Present Illness General Chief complaint: Abdominal Pain Stated complaint: ABDOMINAL PAIN Time Seen by Provider: 03/30/23 10:16 Source: patient, RN notes reviewed and old records reviewed Mode of arrival: ambulatory Limitations: no limitations History of Present Illness Maximum Pain Intensity: 7 This patient is a 43-year-old male who comes in after having nausea vomiting diarrhea he has a complex medical history is chronic pancreatitis he had a stent placed by Janell White recently. He has had some abdominal discomfort no urinary symptoms but decreased urine output he has some epigastric pain. Occasionally hurts up in his chest. No fall or trauma or injury. no dysuria or hematuria. he is supposed to be on Xarelto for history of DVT but had held it due to intervention and said he could not take it lately due to throwing up. He does have history of alcohol abuse but denies that he has had any alcohol for about 3 weeks now. Denies drug use Home Medications Medication Instructions Recorded Confirmed Type pantoprazole 40 mg tablet,delayed 40 mg PO DAILY #90 tabs 04/22/22 03/30/23 Rx release allopurinol 100 mg tablet 100 mg PO DAILY #90 tabs 09/09/22 03/30/23 Rx calcitriol 0.25 mcg capsule 0.25 mcg PO 3XWK #45 caps 01/29/23 03/30/23 Rx ergocalciferol (vitamin D2) 1,250 50,000 unit PO WEEKLY #12 caps 02/26/23 03/30/23 Rx mcg (50,000 unit) capsule lisinopril 5 mg tablet 5 mg PO DAILY #90 tabs 02/26/23 03/30/23 Rx rivaroxaban 20 mg tablet (Xarelto) 20 mg PO DAILYBD 03/20/23 03/30/23 History Allergies Allergy/AdvReac Type Severity Reaction Status Date / Time cephalexin Allergy Mild Rash Verified 03/30/23 15:00 Past Med/Surg History Medical History (Updated 03/31/23 @ 10:21 by Royce Reece MD) Acute pancreatitis Alcohol use disorder Anemia Chronic kidney disease with symptom management only, stage 4 (severe) Chronic venous insufficiency Coagulopathy Deep vein thrombosis 07/2018/CHRONIC- ON Xarelto Esophagitis Hematemesis Hypertension Hypokalemia MVP (mitral valve prolapse) 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 ECHO Osteomyelitis of ankle or foot, left, acute Pancreatitis Portal vein thrombosis Pseudocyst, pancreas Secondary hyperparathyroidism of renal origin Traumatic open wound of left lower leg Vitamin D deficiency Surgical History Hx of biopsy LEFT KIDNEY S/P vascular surgery LLE 2/2 VENOUS INSUFFICIENCY Status post left foot surgery I and D of left foot on 08/22/21. LMA #5 Family History Mother FHx: lung cancer Hypertension Breast cancer Brother FHx: testicular cancer Hypertension Father Hypertension Unknown Myocardial infarction Social History Smoking Status: Never smoker Second Hand Exposure: No; Do You Dip or Chew Tobacco: No; Tobacco Cessation Education Requested by Patient: No Hx Alcohol Use: Yes Alcohol type: hard liquor Hx Substance Use: No Preferred Language: Hungarian Communication Ability: Effective Visual Impairment: No Limitations Interactive Video Technician Required: No Beliefs That Will Affect Care: None marital status: Single Current Living Situation: Significant Other Current Living Situation Comment: Fiance and 4 kids current occupational status: unemployed How many Children do You have: 4 Other Information That Helps Us Care for You: No Feels Safe at Home: Yes Safety Concerns: Feels Safe At This Time Diet Comment: low fat during the past year weight has: decreased > 10 lbs Assistive Devices: None Review of Systems A total of 10 systems reviewed and were otherwise negative Physical Exam Vital Signs Vital Signs - 24 hr 03/30/23 10:33 03/30/23 10:33 03/30/23 10:32 Pulse Rate 121 H 127 H Pulse Rate from SpO2 Sensor 127 H Pulse Rhythm [Apical] Pulse Strength [Apical] Respiratory Rate 19 Respiratory Effort / Characteristics Respiratory Depth Respiratory Pattern Blood Pressure 107/68 Blood Pressure Mean 81 Blood Pressure Position [Left Arm] Pulse Oximetry 98 99 Oxygen Delivery Method Room Air Room Air 03/30/23 11:00 03/30/23 11:00 03/30/23 11:15 Pulse Rate 108 H Pulse Rate from SpO2 Sensor Pulse Rhythm [Apical] Pulse Strength [Apical] Respiratory Rate 24 Respiratory Effort / Characteristics Non-Labored Spontaneous Respiratory Depth Normal Respiratory Pattern Regular Blood Pressure 122/86 Blood Pressure Mean 91 Blood Pressure Position [Left Arm] Lying Pulse Oximetry 98 Oxygen Delivery Method Room Air 03/30/23 11:15 03/30/23 11:30 03/30/23 11:30 Pulse Rate 100 H 99 H Pulse Rate from SpO2 Sensor 100 H 99 H Pulse Rhythm [Apical] Regular Pulse Strength [Apical] Normal Respiratory Rate 28 H 21 Respiratory Effort / Characteristics Non-Labored Spontaneous Respiratory Depth Normal Respiratory Pattern Regular Blood Pressure 123/86 Blood Pressure Mean 98 Blood Pressure Position [Left Arm] Lying Pulse Oximetry 97 99 Oxygen Delivery Method Room Air Room Air 03/30/23 11:45 03/30/23 12:00 03/30/23 12:15 Pulse Rate Pulse Rate from SpO2 Sensor Pulse Rhythm [Apical] Regular Pulse Strength [Apical] Normal Respiratory Rate Respiratory Effort / Characteristics Non-Labored Spontaneous Non-Labored Spontaneous Non-Labored Spontaneous Respiratory Depth Normal Normal Normal Respiratory Pattern Regular Regular Regular Blood Pressure Blood Pressure Mean Blood Pressure Position [Left Arm] Lying Lying Lying Pulse Oximetry Oxygen Delivery Method Room Air Room Air Room Air 03/30/23 11:45 03/30/23 12:00 03/30/23 12:30 Pulse Rate 96 H 97 H 98 H Pulse Rate from SpO2 Sensor 96 H 97 H 98 H Pulse Rhythm [Apical] Pulse Strength [Apical] Respiratory Rate 27 H 24 25 H Respiratory Effort / Characteristics Respiratory Depth Respiratory Pattern Blood Pressure 129/86 132/92 129/87 Blood Pressure Mean 100 105 101 Blood Pressure Position [Left Arm] Pulse Oximetry 97 98 98 Oxygen Delivery Method 03/30/23 12:45 03/30/23 13:00 03/30/23 13:15 Pulse Rate 96 H 97 H 96 H Pulse Rate from SpO2 Sensor 96 H 97 H 95 H Pulse Rhythm [Apical] Pulse Strength [Apical] Respiratory Rate 24 29 H 28 H Respiratory Effort / Characteristics Respiratory Depth Respiratory Pattern Blood Pressure 125/86 124/85 127/86 Blood Pressure Mean 99 98 99 Blood Pressure Position [Left Arm] Pulse Oximetry 98 97 99 Oxygen Delivery Method 03/30/23 13:30 03/30/23 13:45 03/30/23 14:00 Pulse Rate 98 H 101 H 99 H Pulse Rate from SpO2 Sensor 98 H Pulse Rhythm [Apical] Pulse Strength [Apical] Respiratory Rate 27 H 24 24 Respiratory Effort / Characteristics Respiratory Depth Respiratory Pattern Blood Pressure 121/83 115/80 123/94 Blood Pressure Mean 95 91 103 Blood Pressure Position [Left Arm] Pulse Oximetry 96 99 Oxygen Delivery Method Room Air 03/30/23 14:15 03/30/23 14:30 03/30/23 14:45 Pulse Rate 101 H 103 H 104 H Pulse Rate from SpO2 Sensor Pulse Rhythm [Apical] Pulse Strength [Apical] Respiratory Rate 24 20 22 Respiratory Effort / Characteristics Respiratory Depth Respiratory Pattern Blood Pressure 119/89 95/76 L 105/78 Blood Pressure Mean 99 82 87 Blood Pressure Position [Left Arm] Pulse Oximetry 99 97 97 Oxygen Delivery Method Room Air Room Air Room Air 03/30/23 15:00 03/30/23 15:15 Pulse Rate 106 H 101 H Pulse Rate from SpO2 Sensor 107 H 102 H Pulse Rhythm [Apical] Pulse Strength [Apical] Respiratory Rate 25 H 24 Respiratory Effort / Characteristics Respiratory Depth Respiratory Pattern Blood Pressure 101/84 111/82 Blood Pressure Mean 89 91 Blood Pressure Position [Left Arm] Pulse Oximetry 99 99 Oxygen Delivery Method General: Well developed well nourished middle-age male who appears in no acute distress, breathing comfortably on room air. Normal speech HEENT: Normal cephalic atraumatic. Pupils are equal round and reactive to light. Sclera anicteric extraocular movements are intact. Oropharynx is pink with moist mucous membranes. No swelling of the mouth lips or tongue. Neck: Supple with a midline trachea. No meningeal signs or stiffness, no JVD or bruits. No Stridor. Chest: Clear to auscultation bilaterally. No wheezes or rhonchi. No increased work of breathing. Heart: Regular rate and rhythm without murmurs or gallops. Abdomen: Soft, moderately tender but in nondistended without rebound guarding or rigidity. Extremities: No cyanosis clubbing or edema. No calf tenderness or assymetry Spine/Back. Non tender to palpation. No CVA tenderness Skin: Good turgor without rashes. Neurologic exam: Cranial nerves two through 12 are intact. Motor and sensation are intact and symmetrical throughout. Course Administered Medications Allopurinol (Allopurinol 100 Mg Tab) 100 mg PO DAILY CURTIS Stop: 04/30/23 08:59 Last Admin: 03/31/23 08:48 Dose: 100 mg Documented By: AMANDA Hydromorphone HCl (Hydromorphone Inj 0.5 Mg/0.5 Ml Syr) 0.5 mg IV Q6H PRN PRN Reason: Severe Pain (Scale 7, 8, 9,10) Stop: 04/14/23 02:29 Last Admin: 03/31/23 05:03 Dose: 0.5 mg Documented By: KSC Lactated Ringer's (Lr) 1,000 mls @ 125 mls/hr IV .Q8H CURTIS Stop: 04/29/23 19:59 Last Admin: 03/31/23 05:00 Dose: 125 mls/hr Documented By: Infusion: 03/31/23 04:43 Dose: 125 mls/hr Documented By: Admin: 03/30/23 20:43 Dose: 125 mls/hr Documented By: KSLyndon Acetaminophen (Ofirmev) 1,000 mg in 100 mls @ 400 mls/hr IV Q8 CURTIS Stop: 04/02/23 20:59 Last Infusion: 03/31/23 05:16 Dose: 0 mls/hr Documented By: Admin: 03/31/23 05:00 Dose: 400 mls/hr Documented By: Infusion: 03/30/23 21:40 Dose: 0 mls/hr Documented By: Admin: 03/30/23 20:52 Dose: 400 mls/hr Documented By: KSLyndon Discontinued Medications Hydromorphone HCl (Hydromorphone Inj 0.5 Mg/0.5 Ml Syr) 0.5 mg IV NOW STA Stop: 03/30/23 20:31 Last Admin: 03/30/23 20:49 Dose: 0.5 mg Documented By: LONI Sodium Chloride (Nss 1000ml) 1,000 mls @ 999 mls/hr IV .Q1H1M ONE Stop: 03/30/23 11:24 Last Infusion: 03/30/23 12:50 Dose: 0 mls/hr Documented By: Admin: 03/30/23 10:56 Dose: 999 mls/hr Documented By: NV Sodium Chloride (Nss 1000ml) 1,000 mls @ 999 mls/hr IV .Q1H1M ONE Stop: 03/30/23 12:34 Last Infusion: 03/30/23 12:50 Dose: 0 mls/hr Documented By: Admin: 03/30/23 11:38 Dose: 999 mls/hr Documented By: RICARDA Pantoprazole Sodium 40 mg/ (Syringe) 10 mls @ 5 mls/min IV NOW ONE Stop: 03/30/23 15:29 Last Admin: 03/30/23 16:27 Dose: 5 mls/min Documented By: RICARDA Morphine Sulfate (Morphine Sulfate 2 Mg/Ml Carp) 2 mg IV NOW STA Stop: 03/30/23 10:25 Last Admin: 03/30/23 11:05 Dose: 2 mg Documented By: RICARDA Morphine Sulfate (Morphine Sulfate 4 Mg/Ml 1 Ml Carp\Vial) 4 mg IV NOW STA Stop: 03/30/23 11:23 Last Admin: 03/30/23 11:33 Dose: 4 mg Documented By: RICARDA Morphine Sulfate (Morphine Sulfate 4 Mg/Ml 1 Ml Carp\Vial) 4 mg IV NOW STA Stop: 03/30/23 13:45 Last Admin: 03/30/23 13:54 Dose: 4 mg Documented By: RICARDA Ondansetron HCl (Ondansetron Inj 2 Mg/Ml 2 Ml Vial) 4 mg IV NOW STA Stop: 03/30/23 10:25 Last Admin: 03/30/23 11:05 Dose: 4 mg Documented By: RICARDA Ondansetron HCl (Ondansetron Inj 2 Mg/Ml 2 Ml Vial) 4 mg IV NOW STA Stop: 03/30/23 20:31 Last Admin: 03/30/23 20:49 Dose: 4 mg Documented By: LONI Medical Decision Making Differential Diagnosis Pancreatitis, pseudocyst, complication related to stent, dehydration, cardiac disease, electrolyte or metabolic abnormality, sepsis, alcohol related problem Medical Records Attestation: I reviewed the patient's medical records. Home Medications Current Medication List: was personally reviewed by me Laboratory Data Attestation: I reviewed the patient's lab results. 03/30/23 10:52 03/30/23 10:52 Lab Results 03/30/23 03/30/23 03/30/23 Range/Units 10:52 10:52 10:52 WBC 16.90 H (4.8-10.8) K/ul RBC 4.01 L (4.70-6.10) M/uL Hgb 13.4 L (14.0-18.0) g/dl Hct 38.4 L (42.0-52.0) % MCV 95.8 (80.0-100.0) fL MCH 33.4 (25.0-34.0) pg MCHC 34.9 (32.0-36.0) g/dL RDW Std Deviation 47.8 H (36.4-46.3) fL RDW Coeff of Machelle 13.4 (11.5-14.5) % Plt Count 371 (130-400) K/uL MPV 10.0 (9.4-12.4) fL Immature Gran % (Auto) 0.4 % Neut % (Auto) 71.8 % Lymph % (Auto) 13.2 % Alcorn % (Auto) 11.4 % Eos % (Auto) 2.7 % Baso % (Auto) 0.5 % Neut # (Auto) 12.14 H (1.40-6.50) K/uL Lymph # (Auto) 2.23 (1.2-3.4) K/uL Alcorn # (Auto) 1.93 H (0.11-0.59) K/uL Eos # (Auto) 0.45 (0-0.50) K/uL Baso # (Auto) 0.08 (0-0.2) K/uL Immature Gran # (Auto) 0.07 (0.01-0.20) K/uL Sodium 135 L (136-145) mmol/L Potassium 3.5 (3.5-5.1) mmol/L Chloride 101 (98-107) mmol/L Carbon Dioxide 22 (21-32) mmol/L Anion Gap 12 H (3-11) BUN 21 (6-23) mg/dl Creatinine 1.71 H (0.6-1.4) mg/dl Est Cr Clr Drug Dosing Not Reportable Est GFR ( Amer) 54.8 ml/min Est GFR (Non-Af Amer) 47.3 ml/min BUN/Creatinine Ratio 12.3 (10-20) Glucose 93 (70-99(Fasting)) mg/dl Lactate 1.8 (0.4-2.0) mmol/L Calcium 8.8 (8.6-10.3) mg/dl Magnesium 2.1 (1.7-2.4) mg/dl Total Bilirubin 0.8 (0.2-1.0) mg/dl Direct Bilirubin TNP AST 25 (13-39) U/L ALT 18 (7-52) U/L Alkaline Phosphatase 158 H (34-104) U/L Troponin I High Sens 6.0 (0-20) pg/ml Total Protein 8.4 H (6.0-8.3) gm/dl Albumin 3.4 (3.4-5.0) gm/dl Triglycerides (0-150) mg/dl Amylase 118 H (25-115) U/L Lipase 182 H (11-82) U/L Procalcitonin Ethyl Alcohol mg/dL (<10.0) mg/dl 03/30/23 03/30/23 03/30/23 Range/Units 10:52 10:52 10:52 WBC (4.8-10.8) K/ul RBC (4.70-6.10) M/uL Hgb (14.0-18.0) g/dl Hct (42.0-52.0) % MCV (80.0-100.0) fL MCH (25.0-34.0) pg MCHC (32.0-36.0) g/dL RDW Std Deviation (36.4-46.3) fL RDW Coeff of Machelle (11.5-14.5) % Plt Count (130-400) K/uL MPV (9.4-12.4) fL Immature Gran % (Auto) % Neut % (Auto) % Lymph % (Auto) % Alcorn % (Auto) % Eos % (Auto) % Baso % (Auto) % Neut # (Auto) (1.40-6.50) K/uL Lymph # (Auto) (1.2-3.4) K/uL Alcorn # (Auto) (0.11-0.59) K/uL Eos # (Auto) (0-0.50) K/uL Baso # (Auto) (0-0.2) K/uL Immature Gran # (Auto) (0.01-0.20) K/uL Sodium (136-145) mmol/L Potassium (3.5-5.1) mmol/L Chloride (98-107) mmol/L Carbon Dioxide (21-32) mmol/L Anion Gap (3-11) BUN (6-23) mg/dl Creatinine (0.6-1.4) mg/dl Est Cr Clr Drug Dosing Est GFR ( Amer) ml/min Est GFR (Non-Af Amer) ml/min BUN/Creatinine Ratio (10-20) Glucose (70-99(Fasting)) mg/dl Lactate (0.4-2.0) mmol/L Calcium (8.6-10.3) mg/dl Magnesium (1.7-2.4) mg/dl Total Bilirubin (0.2-1.0) mg/dl Direct Bilirubin AST (13-39) U/L ALT (7-52) U/L Alkaline Phosphatase (34-104) U/L Troponin I High Sens (0-20) pg/ml Total Protein (6.0-8.3) gm/dl Albumin (3.4-5.0) gm/dl Triglycerides 141 (0-150) mg/dl Amylase (25-115) U/L Lipase (11-82) U/L Procalcitonin Cancelled Ethyl Alcohol mg/dL < 10.0 (<10.0) mg/dl 03/30/23 Range/Units 11:37 WBC (4.8-10.8) K/ul RBC (4.70-6.10) M/uL Hgb (14.0-18.0) g/dl Hct (42.0-52.0) % MCV (80.0-100.0) fL MCH (25.0-34.0) pg MCHC (32.0-36.0) g/dL RDW Std Deviation (36.4-46.3) fL RDW Coeff of Machelle (11.5-14.5) % Plt Count (130-400) K/uL MPV (9.4-12.4) fL Immature Gran % (Auto) % Neut % (Auto) % Lymph % (Auto) % Alcorn % (Auto) % Eos % (Auto) % Baso % (Auto) % Neut # (Auto) (1.40-6.50) K/uL Lymph # (Auto) (1.2-3.4) K/uL Alcorn # (Auto) (0.11-0.59) K/uL Eos # (Auto) (0-0.50) K/uL Baso # (Auto) (0-0.2) K/uL Immature Gran # (Auto) (0.01-0.20) K/uL Sodium (136-145) mmol/L Potassium (3.5-5.1) mmol/L Chloride (98-107) mmol/L Carbon Dioxide (21-32) mmol/L Anion Gap (3-11) BUN (6-23) mg/dl Creatinine (0.6-1.4) mg/dl Est Cr Clr Drug Dosing Est GFR ( Amer) ml/min Est GFR (Non-Af Amer) ml/min BUN/Creatinine Ratio (10-20) Glucose (70-99(Fasting)) mg/dl Lactate (0.4-2.0) mmol/L Calcium (8.6-10.3) mg/dl Magnesium (1.7-2.4) mg/dl Total Bilirubin (0.2-1.0) mg/dl Direct Bilirubin AST (13-39) U/L ALT (7-52) U/L Alkaline Phosphatase (34-104) U/L Troponin I High Sens (0-20) pg/ml Total Protein (6.0-8.3) gm/dl Albumin (3.4-5.0) gm/dl Triglycerides (0-150) mg/dl Amylase (25-115) U/L Lipase (11-82) U/L Procalcitonin 0.65 H Ethyl Alcohol mg/dL (<10.0) mg/dl Imaging Data Attestation: I personally reviewed and interpreted this imaging study as follows: My Impression: Chest x-rayno acute infiltrate, failure, pneumothorax. No free air CT of the abdomen and pelvisI do not see any free air or bowel obstruction. There are stents seen in the pancreas area and inflammation/pseudocyst Radiologist's Impression: Chest X-Ray 03/30/23 10:25 XR chest 1V portable HISTORY: 43 years-old Male Sepsis acute sepsis COMPARISON: 03/20/2023 TECHNIQUE: AP view the chest FINDINGS: Cardiomediastinal and hilar silhouettes are within normal limits. There is no pneumothorax, pleural effusion, airspace consolidation or pulmonary edema. Bones appear grossly intact. Mild levoscoliosis of the upper thoracic spine. IMPRESSION: No acute process. ACT 112: Negative or not required by law. The above report was generated using voice recognition software. It may contain grammatical, syntax or spelling errors. Electronically signed by: Kahlil Fisher M.D. 03/30/2023 10:39 AM Chest X-Ray 03/30/23 10:25 XR chest 1V portable HISTORY: 43 years-old Male Sepsis acute sepsis COMPARISON: 03/20/2023 TECHNIQUE: AP view the chest FINDINGS: Cardiomediastinal and hilar silhouettes are within normal limits. There is no pneumothorax, pleural effusion, airspace consolidation or pulmonary edema. Bones appear grossly intact. Mild levoscoliosis of the upper thoracic spine. IMPRESSION: No acute process. ACT 112: Negative or not required by law. The above report was generated using voice recognition software. It may contain grammatical, syntax or spelling errors. Electronically signed by: Kahlil Fisher M.D. 03/30/2023 10:39 AM Abdomen/Pelvis CT 03/30/23 11:[address] WITHOUT CONTRAST CT DOSE: 1163.44 mGy.cm HISTORY: Acute epigastric abdominal pain with pancreatitis Pancreatitis, pancreatic stent, renal insufficienc TECHNIQUE: Multiaxial CT images of the abdomen and pelvis were performed without contrast. A dose lowering technique was utilized adhering to the principles of ALARA. COMPARISON STUDY: 03/20/2023 FINDINGS: Coronary artery calcifications. Subcentimeter cardial lymph nodes. The lung bases. No pneumatosis or pneumoperitoneum. Limited study without the use of contrast. Unremarkable unenhanced spleen and adrenal glands. Hepatic steatosis. Mild pneumobilia. The gallbladder is mildly distended with intraluminal air. A common bile duct stent has been placed in the interval which appears to be in satisfactory positioning. No choledocholithiasis identified. Glandular atrophy of the pancreas is redemonstrated. Pancreatic ductal dilation is again noted measuring up to approximately 7 mm. Increased size of the cystic lesion within the pancreatic head now measuring 5.6 x 3.6 cm, previously 3.7 x 3.0 cm. Interval placement of 2 adjacent stent devices within the perigastric collection which has decreased in size now measuring 9.3 x 3.3 cm, previously 18 x 8 cm. This now contains gas in the collection immediately adjacent to or within the wall of the stomach. There is persistent wall thickening with increased enhancement of the stomach. There is progressively worse and duodenal wall thickening with perigastric and periduodenal inflammation. Lymph node adjacent to the duodenum measuring up to 1.2 cm are likely reactive. Small volume of abdominal pelvic ascites. No hydronephrosis or urolith. Prostatomegaly. Urinary bladder wall thickening with partial distention. Atherosclerosis of the aorta. Mild wall thickening of the distal esophagus with small hiatal hernia. Colonic diverticulosis. Wall thickening of the transverse and ascending colon with adjacent pericolonic in flammation. No CT evidence of acute appendicitis. No acute fracture. IMPRESSION: 1. Acute pancreatitis redemonstrated. There is decreased size of the perigastric versus gastric intramural pseudocyst now measuring up to 5.6 cm. 2. Progressively worsened wall thickening of the stomach, duodenum, transverse and descending colon which may be reactive secondary to the aforementioned acute pancreatitis. 3. Increased size of the pancreatic head pseudocyst. 4. Satisfactory positioning of the common bile duct stent with pneumobilia confirming stent patency. 5. Chronic pancreatic atrophy with stable pancreatic ductal dilation. 6. No bowel obstruction. 7. Additional findings as above. ACT 112: Negative or not required by law. The above report was generated using voice recognition software. It may contain grammatical, syntax or spelling errors. Electronically signed by: Kahlil Fisher M.D. 03/30/2023 1:48 PM ECG Data Indication: + abdominal pain Rate (beats per minute): 118 Rhythm: + sinus tachycardia ECG Intervals/blocks: + Normal QRS and + Normal QT ECG Sterling: + Normal ECG ST segments: + Normal ST segments ECG Findings: no PACs or no PVCs Comparison ECG Date: from (03/20/20) Change: no significant change MDM Narrative This patient comes in as described above. He was placed in room C2 he had vomiting and diarrhea has history of chronic pancreatitis with recent stents. IV access was established multiple blood testing was obtained including blood cultures and a sepsis type work-up IV access was established , he was hydrated with 1 L IV normal saline bolus given for Zofran IV and 2 mg morphine IV multiple blood testing was obtained EKG and chest x-ray was obtained he was placed on a surveillance system monitor. I reviewed his old records. EKG shows sinus tachycardia without ischemic changes. Lactic acid was not significantly elevated which would go against sepsis however his white count is moderately elevated 16. He was given a second 1 L IV normal saline bolus. He was given additional IV morphine 4 mg x 2 during his stay. His lipase and amylase are mil dly elevated. CAT scan shows decrease in size of one of the pseudocyst but still a lot of inflammatory changes. There is also increase in one of the other pseudocyst. I do think he needs to come in for pain management and further hydration and GI evaluation. Despite having fluids and multiple doses of pain medication he still seems very uncomfortable. I have discussed the case in consultation at length with Dr. Erich Egan who saw the patient in ER for these measures Continuous cardiac monitoring: An order was placed in EMR for continuous cardiac monitoring: Upon my evaluation was noted to be in sinus tachycardia with a rate of 118 Impression & Plan Acute pancreatitis, Abdominal pain, Pancreatic pseudocyst, Vomiting, Acute dehydration Discharge Plan Visit Data Chief Complaint: Abdominal Pain Stated Complaint: ABDOMINAL PAIN ED Provider: Royce Reece Discharge Problem: Acute pancreatitis, Abdominal pain, Pancreatic pseudocyst, Vomiting, Acute dehydration Patient Disposition: Admitted As Inpatient Discharge Instructions Interventions: ED Discharge Assessment Last Done: 03/30/23 20:20
--- NOTE | 2023-03-30 10:40 | XRay Report ---
XR chest 1V portable HISTORY: 43 years-old Male Sepsis acute sepsis COMPARISON: 03/20/2023 TECHNIQUE: AP view the chest FINDINGS: Cardiomediastinal and hilar silhouettes are within normal limits. There is no pneumothorax, pleural e ffusion, airspace consolidation or pulmonary edema. Bones appear grossly intact. Mild levoscoliosis o f the upper thoracic spine. IMPRESSION: No acute process. ACT 112: Negative or not required by law. The above report was generated using voice recognition software. It may contain grammatical, syntax o r spelling errors. Electronically signed by: Kahlil Fisher M.D. 03/30/2023 10:39 AM
[2023-03-30 11:08] LABS: Basophils # (auto) 0.08 K/uL (0-0.2); Basophils % (auto) 0.5 %; Eosinophils # (auto) 0.45 K/uL (0-0.50); Eosinophils % (auto) 2.7 %; Hematocrit (blood only) 38.4 % (42.0-52.0); Hemoglobin 13.4 g/dl (14.0-18.0); Immature Granulocytes # (auto) 0.07 K/uL (0.01-0.20); Immature Granulocytes % (auto) 0.4 %; Lymphocytes # (auto) 2.23 K/uL (1.2-3.4); Lymphocytes % (auto) 13.2 %; Mean Corpuscular Hemoglobin 33.4 pg (25.0-34.0); Mean Corpuscular Hgb Conc 34.9 g/dL (32.0-36.0); Mean Corpuscular Volume 95.8 fL (80.0-100.0); Monocytes # (auto) 1.93 K/uL (0.11-0.59); Monocytes % (auto) 11.4 %; Neutrophils # (auto) 12.14 K/uL (1.40-6.50); Neutrophils % (auto) 71.8 %; Platelet Count 371 K/uL (130-400); RDW Coefficient of Variation 13.4 % (11.5-14.5); RDW Standard Deviation 47.8 fL (36.4-46.3); Red Blood Count 4.01 M/uL (4.70-6.10)
[2023-03-30] MEDS ORDERED: MoRPHine SULFATE 4 MG/ML 1 ML CARP\\VIAL IV STA ×2 (11:22→13:44)
[2023-03-30 11:30] LABS: Alanine Aminotransferase 18 U/L (7-52); Albumin Level 3.4 gm/dl (3.4-5.0); Alkaline Phosphatase 158 U/L (34-104); Amylase 118 U/L (25-115); Anion Gap 12 (3-11); Aspartate Aminotransferase 25 U/L (13-39); BUN Creatinine Ratio 12.3 (10-20); Bilirubin,Total 0.8 mg/dl (0.2-1.0); Blood Urea Nitrogen 21 mg/dl (6-23); Calcium 8.8 mg/dl (8.6-10.3); Carbon Dioxide 22 mmol/L (21-32); Chloride 101 mmol/L (98-107); Est GFR (African American) 54.8 ml/min; Est GFR (Non-African American) 47.3 ml/min; Glucose 93 mg/dl (70-99(Fasting)); Lipase 182 U/L (11-82); Magnesium 2.1 mg/dl (1.7-2.4); Potassium 3.5 mmol/L (3.5-5.1); Sodium 135 mmol/L (136-145); Total Protein 8.4 gm/dl (6.0-8.3)
--- NOTE | 2023-03-30 13:50 | CT Scan Report ---
ABDOMEN AND PELVIS CT WITHOUT CONTRAST CT DOSE: 1163.44 mGy.cm HISTORY: Acute epigastric abdominal pain with pancreatitis Pancreatitis, pancreatic stent, renal ins ufficienc TECHNIQUE: Multiaxial CT images of the abdomen and pelvis were performed without contrast. A dose lo wering technique was utilized adhering to the principles of ALARA. COMPARISON STUDY: 03/20/2023 FINDINGS: Coronary artery calcifications. Subcentimeter cardial lymph nodes. The lung bases. No pneum atosis or pneumoperitoneum. Limited study without the use of contrast. Unremarkable unenhanced spleen and adrenal glands. Hepatic steatosis. Mild pneumobilia. The gallbladder is mildly distended with in traluminal air. A common bile duct stent has been placed in the interval which appears to be in [employer] positioning. No choledocholithiasis identified. Glandular atrophy of the pancreas is redemonstrated. Pancreatic ductal dilation is again noted measur ing up to approximately 7 mm. Increased size of the cystic lesion within the pancreatic head now raza uring 5.6 x 3.6 cm, previously 3.7 x 3.0 cm. Interval placement of 2 adjacent stent devices within th e perigastric collection which has decreased in size now measuring 9.3 x 3.3 cm, previously 18 x 8 cm . This now contains gas in the collection immediately adjacent to or within the wall of the stomach. There is persistent wall thickening with increased enhancement of the stomach. There is progressively worse and duodenal wall thickening with perigastric and periduodenal inflammation. Lymph node adjace nt to the duodenum measuring up to 1.2 cm are likely reactive. Small volume of abdominal pelvic ascit es. No hydronephrosis or urolith. Prostatomegaly. Urinary bladder wall thickening with partial distention . Atherosclerosis of the aorta. Mild wall thickening of the distal esophagus with small hiatal hernia . Colonic diverticulosis. Wall thickening of the transverse and ascending colon with adjacent pericol onic inflammation. No CT evidence of acute appendicitis. No acute fracture. IMPRESSION: 1. Acute pancreatitis redemonstrated. There is decreased size of the perigastric versus gastric intra mural pseudocyst now measuring up to 5.6 cm. 2. Progressively worsened wall thickening of the stomach, duodenum, transverse and descending colon w hich may be reactive secondary to the aforementioned acute pancreatitis. 3. Increased size of the pancreatic head pseudocyst. 4. Satisfactory positioning of the common bile duct stent with pneumobilia confirming stent patency. 5. Chronic pancreatic atrophy with stable pancreatic ductal dilation. 6. No bowel obstruction. 7. Additional findings as above. ACT 112: Negative or not required by law. The above report was generated using voice recognition software. It may contain grammatical, syntax o r spelling errors. Electronically signed by: Kahlil Fisher M.D. 03/30/2023 1:48 PM
--- NOTE | 2023-03-30 14:58 | History & Physical Report ---
Date of Service March 30, 2023 Assessment & Plan (1) Acute pancreatitis: Plan: Pt denies any alcohol use since recent discharge. Only ever had one other triglyceride level therefore will repeat this NSS 2L bolus given in ER, continue LR @ 125ml/hr NPO Repeat lipase and LFTs in AM Pantoprazole due to thickening of stomach on CT - although suspect this is reactive Consult gastroenterology for ongoing advice in this complex patient (2) History of deep vein thrombosis: Plan: Restart on anticoagulation when ok from GI perspective (3) Hypertension: Plan: Hold lisinopril in setting of low normal BP (4) Pseudocyst, pancreas: Plan: Consult gastroenterology Plan VTE Prophylaxis - deferred pending gastroenterology evaluation Diet - NPO Disposition - admit to med/surg Admission and Anticipated Discharge Date Admission Date: March 30, 2023 History of Present Illness Chief Complaint: Abdominal pain Primary Care Provider: Jaja Cali MD Anthony Sharif is a 43 year old male with recurrent alcoholic pancreatitis who presents to the ER due to severe nausea, diarrhea and abdominal pain. He was recently admitted from March 20 - 2022 due to acute pancreatitis with pseudocyst. He underwent ERCP/EUS with CBD stent placement. The patient reports resolution of symptoms prior to discharge. However two days after discharge he started having nausea, vomiting and diarrhea. Unable to keep his medications down. Yesterday severe abdominal pain similar to previous started again with 9/10 severity at worse, currently 8/10 after morphine given in the ER. Worse on palpation and inspiration. No radiation of pain. He therefore returned to the ER. Allergies Allergy/AdvReac Type Severity Reaction Status Date / Time cephalexin Allergy Mild Rash Verified 03/30/23 15:00 Home Medications Medication Instructions Recorded Confirmed Type pantoprazole 40 mg tablet,delayed 40 mg PO DAILY #90 tabs 04/22/22 03/30/23 Rx release allopurinol 100 mg tablet 100 mg PO DAILY #90 tabs 09/09/22 03/30/23 Rx calcitriol 0.25 mcg capsule 0.25 mcg PO 3XWK #45 caps 01/29/23 03/30/23 Rx ergocalciferol (vitamin D2) 1,250 50,000 unit PO WEEKLY #12 caps 02/26/23 03/30/23 Rx mcg (50,000 unit) capsule lisinopril 5 mg tablet 5 mg PO DAILY #90 tabs 02/26/23 03/30/23 Rx rivaroxaban 20 mg tablet (Xarelto) 20 mg PO DAILYBD 03/20/23 03/30/23 History Past Med/Surg History Medical History (Updated 03/31/23 @ 07:11 by Erich Egan MD) Acute pancreatitis Alcohol use disorder Anemia Chronic kidney disease with symptom management only, stage 4 (severe) Chronic venous insufficiency Coagulopathy Deep vein thrombosis 07/2018/CHRONIC- ON Xarelto Esophagitis Hematemesis Hypertension Hypokalemia MVP (mitral valve prolapse) 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 ECHO Osteomyelitis of ankle or foot, left, acute Pancreatitis Portal vein thrombosis Pseudocyst, pancreas Secondary hyperparathyroidism of renal origin Traumatic open wound of left lower leg Vitamin D deficiency Surgical History Hx of biopsy LEFT KIDNEY S/P vascular surgery LLE 2/2 VENOUS INSUFFICIENCY Status post left foot surgery I and D of left foot on 08/22/21. LMA #5 Family History Mother FHx: lung cancer Hypertension Breast cancer Brother FHx: testicular cancer Hypertension Father Hypertension Unknown Myocardial infarction Social History Smoking Status: Never smoker Second Hand Exposure: No; Do You Dip or Chew Tobacco: No; Tobacco Cessation Education Requested by Patient: No Hx Alcohol Use: Yes Alcohol type: hard liquor Hx Substance Use: No Preferred Language: Albanian Communication Ability: Effective Visual Impairment: No Limitations Campus Interviews Intern Required: No Beliefs That Will Affect Care: None marital status: Single Current Living Situation: Significant Other Current Living Situation Comment: Fiance and 4 kids current occupational status: unemployed How many Children do You have: 4 Other Information That Helps Us Care for You: No Feels Safe at Home: Yes Safety Concerns: Feels Safe At This Time Diet Comment: low fat during the past year weight has: decreased > 10 lbs Assistive Devices: None Review of Systems Review of Systems: All systems reviewed & are unremarkable except as noted in HPI & below Physical Exam Constitutional: WD/WN, vitals as above Eyes: + anicteric sclerae; normal pupil size ENMT: external ear and nose normal, oropharynx normal Respiratory: normal respiratory effort, lungs clear to auscultation Cardiovascular: RRR, no murmur, no edema Gastrointestinal (Abdomen): Percussion/Palpation: + abdomen tender (epigastric and LUQ) and + guarding Musculoskeletal: no cyanosis or clubbing, extremities motor strength 5/5 Skin: no rashes, warm and dry Neurologic: moves all extremities and awake; not confused Psychiatric: A+Ox3, euthymic affect Results & Data Results & Data Vital Signs (Past 12 Hours) Vital Signs Temp Pulse Resp BP Pulse Ox O2 Del Method 03/30/23 14:45 104 H 22 105/78 97 Room Air 03/30/23 14:30 103 H 20 95/76 L 97 Room Air 03/30/23 14:15 101 H 24 119/89 99 Room Air 03/30/23 14:00 99 H 24 123/94 99 Room Air 03/30/23 13:45 101 H 24 115/80 03/30/23 13:30 98 H 27 H 121/83 96 03/30/23 13:15 96 H 28 H 127/86 99 03/30/23 13:00 97 H 29 H 124/85 97 03/30/23 12:45 96 H 24 125/86 98 03/30/23 12:30 98 H 25 H 129/87 98 03/30/23 12:00 97 H 24 132/92 98 03/30/23 11:45 96 H 27 H 129/86 97 03/30/23 12:15 Room Air 03/30/23 12:00 Room Air 03/30/23 11:45 Room Air 03/30/23 11:30 99 H 21 123/86 99 Room Air 03/30/23 11:30 Room Air 03/30/23 11:15 100 H 28 H 97 03/30/23 11:15 Room Air 03/30/23 11:00 108 H 24 98 03/30/23 11:00 122/86 03/30/23 10:32 127 H 19 107/68 99 Room Air 03/30/23 10:33 121 H 03/30/23 10:33 98 Room Air 03/30/23 10:14 36.7 C 132 H 20 100/73 99 Room Air Laboratory Results Abnormal lab results 06/04/23 06/04/23 06/04/23 Range/Units 10:52 10:52 11:37 WBC 16.90 H (4.8-10.8) K/ul RBC 4.01 L (4.70-6.10) M/uL Hgb 13.4 L (14.0-18.0) g/dl Hct 38.4 L (42.0-52.0) % RDW Std Deviation 47.8 H (36.4-46.3) fL Neut # (Auto) 12.14 H (1.40-6.50) K/uL Hendricks # (Auto) 1.93 H (0.11-0.59) K/uL Sodium 135 L (136-145) mmol/L Anion Gap 12 H (3-11) Creatinine 1.71 H (0.6-1.4) mg/dl Alkaline Phosphatase 158 H (34-104) U/L Total Protein 8.4 H (6.0-8.3) gm/dl Amylase 118 H (25-115) U/L Lipase 182 H (11-82) U/L Procalcitonin 0.65 H (0-0.5) ng/ml Diagnostic Findings ABDOMEN AND PELVIS CT WITHOUT CONTRAST CT DOSE: 1163.44 mGy.cm HISTORY: Acute epigastric abdominal pain with pancreatitis Pancreatitis, pancreatic stent, renal insufficienc TECHNIQUE: Multiaxial CT images of the abdomen and pelvis were performed without contrast. A dose lowering technique was utilized adhering to the principles of ALARA. COMPARISON STUDY: 03/20/2023 FINDINGS: Coronary artery calcifications. Subcentimeter cardial lymph nodes. The lung bases. No pneumatosis or pneumoperitoneum. Limited study without the use of contrast. Unremarkable unenhanced spleen and adrenal glands. Hepatic steatosis. Mild pneumobilia. The gallbladder is mildly distended with intraluminal air. A common bile duct stent has been placed in the interval which appears to be in satisfactory positioning. No choledocholithiasis identified. Glandular atrophy of the pancreas is redemonstrated. Pancreatic ductal dilation is again noted measuring up to approximately 7 mm. Increased size of the cystic lesion within the pancreatic head now measuring 5.6 x 3.6 cm, previously 3.7 x 3.0 cm. Interval placement of 2 adjacent stent devices within the perigastric collection which has decreased in size now measuring 9.3 x 3.3 cm, previously 18 x 8 cm. This now contains gas in the collection immediately adjacent to or within the wall of the stomach. There is persistent wall thickening with increased enhancement of the stomach. There is progressively worse and duodenal wall thickening with perigastric and periduodenal inflammation. Lymph node adjacent to the duodenum measuring up to 1.2 cm are likely reactive. Small volume of abdominal pelvic ascites. No hydronephrosis or urolith. Prostatomegaly. Urinary bladder wall thickening with partial distention. Atherosclerosis of the aorta. Mild wall thickening of the distal esophagus with small hiatal hernia. Colonic diverticulosis. Wall thickening of the transverse and ascending colon with adjacent pericolonic inflammation. No CT evidence of acute appendicitis. No acute fracture. IMPRESSION: 1. Acute pancreatitis redemonstrated. There is decreased size of the perigastric versus gastric intramural pseudocyst now measuring up to 5.6 cm. 2. Progressively worsened wall thickening of the stomach, duodenum, transverse and descending colon which may be reactive secondary to the aforementioned acute pancreatitis. 3. Increased size of the pancreatic head pseudocyst. 4. Satisfactory positioning of the common bile duct stent with pneumobilia confirming stent patency. 5. Chronic pancreatic atrophy with stable pancreatic ductal dilation. 6. No bowel obstruction. 7. Additional findings as above. Medications Administered ER Medications Given: NSS 1L bolus Ondansetron 4mg IV Morphine 2mg IV Morphine 4mg IV NSS 1L bolus Morphine 4mg IV ECG Rate (beats per minute): 118 Rhythm: sinus tachycardia Findings: no acute ischemic change Comparison ECG Date: from (March 20, 2023) Change: no significant change Code Status & VTE Plan Code Status Full VTE Prophylaxis Plan VTE Prophylaxis will be ordered: Yes PG Care Time/CCT Total # of Minutes Spent Total Time Spent with Patient: Total time spent is greater than 50% in coordination of care (as documented) at patient's floor/unit and/or counseling patient: Coding Level of Care Code 80987 INT INP/OBS CARE 2/55MIN Diagnoses Acute pancreatitis K85.90 History of deep vein thrombosis Z86.718 Hypertension I10 Hypertension type: unspecified Pseudocyst, pancreas K86.3 (3) Hypertension Hypertension type: unspecified Qualified Code(s): I10 - Essential (primary) hypertension
[2023-03-30] MEDS ORDERED: PANTOprazole 40 MG in SYRINGE 0 ML IV ONE (15:28)
[2023-03-30] MEDS ORDERED: HYDROmorphone INJ 0.5 MG/0.5 ML SYR IV STA (20:30)
[2023-03-30] MEDS ORDERED: ACETAMINOPHEN 1,000 MG/100 ML VIAL IV ONE (20:31)
[2023-03-30] MEDS ORDERED: ONDANSETRON INJ 2 MG/ML 2 ML VIAL IV PRN (20:37)
[2023-03-30] MEDS: LACTATED RINGER'S 1,000 ML IV SCH (20:43)
[2023-03-30] MEDS: ACETAMINOPHEN 1,000 MG/100 ML VIAL IV SCH (20:52)
[2023-03-30 21:52] LABS: Appearance Urine Cloudy (Clear); Bacteria Urine Automated Negative (Negative); Blood Urine Negative (Negative); Color Urine Dark Yellow; Epithelial Cell Urine Auto >30 /lpf (0-5); Glucose Urine UA Negative (Negative); Ketones Urine 1+ (Negative); Leukocyte Esterase Urine Negative (Negative); Nitrite Urine Negative (Negative); Protein Urine 2+ (Negative); RBC Urine Automated 0-4 /hpf (0-4); Specific Gravity Urine 1.022 (1.000-1.030); Urobilinogen Urine Negative (Negative)
[2023-03-30 21:56] LABS: Bilirubin Urine 1+ (Negative)
[2023-03-31] MEDS ORDERED: HYDROmorphone INJ 0.5 MG/0.5 ML SYR IV PRN ×2 (02:30)
[2023-03-31] MEDS: LACTATED RINGER'S 1,000 ML IV SCH ×3 (05:00→21:53)
[2023-03-31] MEDS: ACETAMINOPHEN 1,000 MG/100 ML VIAL IV SCH ×3 (05:00→21:53)
[2023-03-31] MEDS: allopurinoL 100 MG TAB PO SCH (08:48)
[2023-03-31] MEDS ORDERED: ENOXAPARIN 1 MG/KG SQ SCH (09:00)
[2023-03-31 09:10] LABS: Basophils # (auto) 0.07 K/uL (0-0.2); Basophils % (auto) 0.5 %; Eosinophils # (auto) 0.92 K/uL (0-0.50); Eosinophils % (auto) 6.2 %; Hemoglobin 10.7 g/dl (14.0-18.0); Immature Granulocytes # (auto) 0.07 K/uL (0.01-0.20); Immature Granulocytes % (auto) 0.5 %; Lymphocytes % (auto) 18.2 %; Mean Corpuscular Hemoglobin 32.8 pg (25.0-34.0); Mean Corpuscular Hgb Conc 33.4 g/dL (32.0-36.0); Mean Corpuscular Volume 98.2 fL (80.0-100.0); Monocytes # (auto) 1.35 K/uL (0.11-0.59); Monocytes % (auto) 9.1 %; Neutrophils # (auto) 9.75 K/uL (1.40-6.50); Neutrophils % (auto) 65.5 %; Platelet Count 350 K/uL (130-400); RDW Coefficient of Variation 13.6 % (11.5-14.5); RDW Standard Deviation 49.3 fL (36.4-46.3); Red Blood Count 3.26 M/uL (4.70-6.10); White Blood Count 14.86 K/ul (4.8-10.8)
[2023-03-31 09:24] LABS: Albumin Globulin Ratio 0.7 (0.9-2); Albumin Level 2.8 gm/dl (3.4-5.0); BUN Creatinine Ratio 16.8 (10-20); Bilirubin,Total 0.7 mg/dl (0.2-1.0); Calcium 8.3 mg/dl (8.6-10.3); Creatinine Clr Calc Pharmacy 72.3 ml/min; Est GFR (African American) 61.7 ml/min; Est GFR (Non-African American) 53.3 ml/min; Globulin 3.8 gm/dl (2.5-4.0); Potassium 3.4 mmol/L (3.5-5.1); Total Protein 6.6 gm/dl (6.0-8.3)
[2023-03-31] MEDS: traMADol HCL 50 MG TABLET PO PRN ×2 (10:32→17:52)
[2023-03-31] MEDS: PANTOprazole 40 MG in SYRINGE 0 ML IV SCH (10:33)
--- NOTE | 2023-03-31 11:08 | Hospitalist Progress Note ---
Date of Service March 31, 2023 Assessment & Plan (1) Acute pancreatitis: Plan: Pt denies any alcohol use since recent discharge. TG level 141 NSS 2L bolus given in ER, continue LR @ 125ml/hr GI increased to clear liquids and ADAT to low fat, when tolerating clears can d ecreased LR Repeat lipase improved to 118 and T Bili and transaminases are WNL, mild chronic elevation of Alk Phos Pantoprazole due to thickening of stomach on CT - although suspect this is reactive GI recommended to repeat CTAP in 2 weeks, diet as above, continue supportive LR, PPI and keep outpatient follow up visit (2) History of deep vein thrombosis: Plan: Restart Xarelto 20mg daily GI signed off and recommended to keep follow up appt with repeat CTAP in 2 weeks. (3) Hypertension: Plan: Chronic and stable Hold lisinopril in setting of low normal BP (4) Pseudocyst, pancreas: Plan: GI consultd and signed off and patient to keep follow up appt and repeat CTAP in 2 weeks Plan VTE Prophylaxis - restart Xarelto Diet - clear and ADAT to low fat Disposition - admit to med/surg Admission and Anticipated Discharge Date Admission Date: March 30, 2023 Subjective Patient is in a Covid isolation room and seen this AM on rounds. He was awake sitting up in bed on the phone with family. He appeared in NAD and was talking and laughing. He stated he was in 7/10 pain, but did not appear uncomfortable. He tells me that he was fine when he was discharged last week and then 3 days later he began to have URI sxs and had congestion and then N/V and diarrhea. His girlfriend and his son both have Covid. He still has some soft BMs not liquid and no further N/V. Review of Systems Review of Systems: All other ROS negative unles stated + above in history Physical Exam Constitutional: WD/WN, vitals as above Eyes: PERRL, conjunctivae normal, anicteric sclerae ENMT: external ear and nose normal, oropharynx normal Neck: trachea midline, no thyromegaly Respiratory: normal respiratory effort, lungs clear to auscultation Cardiovascular: RRR, no murmur, no edema Gastrointestinal (Abdomen): + BS normal x 4 quadrants, soft and mild tender to palpation upper abdomen. Skin: dressing left lower leg, follows with wound has 2 x weekly dressing changes Neurologic: PERRL, EOMI, accommodation nl, no face palsy, no dysarthria Psychiatric: A+Ox3, euthymic affect Results & Data Results & Data Vital Signs (Past 12 Hours) Vital Signs Temp Pulse Resp BP Pulse Ox O2 Del Method 03/31/23 08:02 Room Air 03/31/23 07:15 36.6 C 69 16 107/69 99 Room Air Laboratory Results Abnormal lab results 03/30/23 03/30/23 03/31/23 Range/Units 17:25 Unknown 08:29 WBC 14.86 H (4.8-10.8) K/ul RBC 3.26 L (4.70-6.10) M/uL Hgb 10.7 L (14.0-18.0) g/dl Hct 32.0 L (42.0-52.0) % RDW Std Deviation 49.3 H (36.4-46.3) fL MPV 9.0 L (9.4-12.4) fL Neut # (Auto) 9.75 H (1.40-6.50) K/uL Bremer # (Auto) 1.35 H (0.11-0.59) K/uL Eos # (Auto) 0.92 H (0-0.50) K/uL Sodium (136-145) mmol/L Potassium (3.5-5.1) mmol/L BUN (6-23) mg/dl Creatinine (0.6-1.4) mg/dl Calcium (8.6-10.3) mg/dl Alkaline Phosphatase (34-104) U/L Albumin (3.4-5.0) gm/dl Albumin/Globulin Ratio (0.9-2) Lipase (11-82) U/L Urine Appearance Cloudy A (Clear) Urine Protein 2+ H (Negative) Urine Ketones 1+ H (Negative) Urine Bilirubin 1+ H (Negative) Urine WBC (Auto) 5-10 H (0-5) /hpf U Hyaline Cast (Auto) 5-10 H (0-5) /lpf U Epithel Cells (Auto) >30 H (0-5) /lpf Granular Casts 1-5 H (0) /lpf SARS-CoV-2, RNA, NAAT POSITIVE A* (NEGATIVE) 03/31/23 Range/Units 08:29 WBC (4.8-10.8) K/ul RBC (4.70-6.10) M/uL Hgb (14.0-18.0) g/dl Hct (42.0-52.0) % RDW Std Deviation (36.4-46.3) fL MPV (9.4-12.4) fL Neut # (Auto) (1.40-6.50) K/uL Bremer # (Auto) (0.11-0.59) K/uL Eos # (Auto) (0-0.50) K/uL Sodium 135 L (136-145) mmol/L Potassium 3.4 L (3.5-5.1) mmol/L BUN 26 H (6-23) mg/dl Creatinine 1.55 H (0.6-1.4) mg/dl Calcium 8.3 L (8.6-10.3) mg/dl Alkaline Phosphatase 116 H (34-104) U/L Albumin 2.8 L (3.4-5.0) gm/dl Albumin/Globulin Ratio 0.7 L (0.9-2) Lipase 118 H (11-82) U/L Urine Appearance (Clear) Urine Protein (Negative) Urine Ketones (Negative) Urine Bilirubin (Negative) Urine WBC (Auto) (0-5) /hpf U Hyaline Cast (Auto) (0-5) /lpf U Epithel Cells (Auto) (0-5) /lpf Granular Casts (0) /lpf SARS-CoV-2, RNA, NAAT (NEGATIVE) PG Care Time/CCT Total # of Minutes Spent Total Time Spent with Patient: Total time spent is greater than 50% in coordination of care (as documented) at patient's floor/unit and/or counseling patient: Coding Level of Care Code 55091 SUB INP/OBS CARE 25MIN Diagnoses Acute pancreatitis K85.90 History of deep vein thrombosis Z86.718 Hypertension I10 Hypertension type: unspecified Pseudocyst, pancreas K86.3 (3) Hypertension Hypertension type: unspecified Qualified Code(s): I10 - Essential (primary) hypertension
[2023-03-31 11:21] LABS: Adenovirus F 40/41 PCR Not Detected (NotDetected); Astrovirus PCR Not Detected (NotDetected); Campylobacter PCR Not Detected (NotDetected); Cryptosporidium PCR Not Detected (NotDetected); Cyclospora cayetanensis PCR Not Detected (NotDetected); Entamoeba histolytica PCR Not Detected (NotDetected); Enteroaggregative E.coli(EAEC) Not Detected (NotDetected); Enteropathogenic E.coli (EPEC) Not Detected (NotDetected); Enterotoxigenic E.coli (ETEC) Not Detected (NotDetected); Giardia lamblia PCR Not Detected (NotDetected); Norovirus GI/GII PCR Not Detected (NotDetected); Plesiomonas shigelloides PCR Not Detected (NotDetected); Rotavirus A PCR Not Detected (NotDetected); Salmonella PCR Not Detected (NotDetected); Sapovirus PCR Not Detected (NotDetected); Shiga-like Toxin E.coli (STEC) Not Detected (NotDetected); Shigella/Enteroinvasive E.coli Not Detected (NotDetected); Vibrio cholerae PCR Not Detected (NotDetected); Vibrio species PCR Not Detected (NotDetected); Yersinia enterocolitica PCR Not Detected (NotDetected)
--- NOTE | 2023-03-31 12:05 | Gastrointestinal Consultation ---
Date of Consultation March 31, 2023 Assessment & Plan (1) COVID: (2) Acute pancreatitis: Pt is a 43 yo male w ETOH pancreatitis, admitted with abd pain, nausea, diarrhea. Stool studies negative. He tested positive for COVID-19. He t was admitted about a week and a half ago with acute pancreatitis and development of pseudocyst s/p cystogastrostomy via EUS/ERCP w 2 pigtail stents placements and biliary stent placement for biliary stricture. His presenting symptoms may be related to sequela of his pancreatitis but could also be related to COVID-19. - PPI daily - IVF support w LR - CL diet; advance as tolerated to low fat - Symptomatic management for abd pain and nausea, though would discourage use of narcotics to in order to avoid ileus - Discussed CT scan findings with Dr. Pressley who performed pt's EUS/ERCP interventions previously. No current plan to repeat endoscopic interventions. Will obtain repeat CT abd/pelvis in 2 weeks' time in outpt setting to re-eval pancreas pseudocyst and perigastric fluid collection - GI to sign off; pls recall prn Supervising Physician Co-Signing Physician Notes 43 yo male with a history of etoh pancreatitis, admittd with abd pain/nausea/diarrhea, now covid +, on isolation. Last episode of pancreatitis was a few weeks ago, he was noted to have a pseudocyst s/p pigtail stent placement. Agree with PE as documented Lipase elevation is mild Agree with IV fluids for pancreatitis for now, advancement of diet. Pending repeat CT imaging in a few weeks, further drainage of the cyst may be consider pending on maturation of fluid collections however no plans for that at this time or during this admission. Supportive covid treatment as per primary team. Agree with further plan of care as documented. History of Present Illness Reason for Consultation: Recurrent pancreatitis, pseudocyst Requesting Physician: Dr. Raimundo Villa Attending Physician: Dr. Erna Daniels History of Present Illness Pt is a 43 yo male with recurrent alcoholic pancreatitis who presented yesterday to the ED with complaints of abdominal pain, nausea and diarrhea symptoms. Patient reports he's been abstinent x 3 weeks now. Patient denies associated fevers, chills, chest pain or shortness of breath. He was found to have COVID- positive. Was also found that his lipase were elevated 182 with normal LFTs. Patient was admitted about a week and a half ago with acute pancreatitis and development of pseudocyst s/p cystogastrostomy via EUS/ERCP w 2 pigtail stents and biliary stent placement for biliary stricture. Admission CT abdomen pelvis without contrast showed acute pancreatitis with decreased size of perigastric versus gastric intramural pseudocyst currently measuring 5.6 cm. There is worsening wall thickening of the stomach, duodenum, transverse and descending colon which may be reactive secondary to acute pancreatitis. There is also increased size of the pancreatic head pseudocyst. Satisfactory positioning of the CBD stent with pneumobilia confirms stent patency. No signs of bowel obstruction. Allergies Allergy/AdvReac Type Severity Reaction Status Date / Time cephalexin Allergy Mild Rash Verified 03/30/23 15:00 Home Medications Medication Instructions Recorded Confirmed Type pantoprazole 40 mg tablet,delayed 40 mg PO DAILY #90 tabs 04/22/22 03/30/23 Rx release allopurinol 100 mg tablet 100 mg PO DAILY #90 tabs 09/09/22 03/30/23 Rx calcitriol 0.25 mcg capsule 0.25 mcg PO 3XWK #45 caps 01/29/23 03/30/23 Rx ergocalciferol (vitamin D2) 1,250 50,000 unit PO WEEKLY #12 caps 02/26/23 03/30/23 Rx mcg (50,000 unit) capsule lisinopril 5 mg tablet 5 mg PO DAILY #90 tabs 02/26/23 03/30/23 Rx rivaroxaban 20 mg tablet (Xarelto) 20 mg PO DAILYBD 03/20/23 03/30/23 History Patient History Medical History Acute pancreatitis Alcohol use disorder Anemia Chronic kidney disease with symptom management only, stage 4 (severe) Chronic venous insufficiency Coagulopathy Deep vein thrombosis 07/2018/CHRONIC- ON Xarelto Esophagitis Hematemesis Hypertension Hypokalemia MVP (mitral valve prolapse) 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 ECHO Osteomyelitis of ankle or foot, left, acute Pancreatitis Portal vein thrombosis Pseudocyst, pancreas Secondary hyperparathyroidism of renal origin Traumatic open wound of left lower leg Vitamin D deficiency Surgical History Hx of biopsy LEFT KIDNEY S/P vascular surgery LLE 2/2 VENOUS INSUFFICIENCY Status post left foot surgery I and D of left foot on 08/22/21. LMA #5 Family History Mother FHx: lung cancer Hypertension Breast cancer Brother FHx: testicular cancer Hypertension Father Hypertension Unknown Myocardial infarction Social History Smoking Status: Never smoker Second Hand Exposure: No; Do You Dip or Chew Tobacco: No; Tobacco Cessation Education Requested by Patient: No Hx Alcohol Use: Yes Alcohol type: hard liquor Hx Substance Use: No Preferred Language: Tam[place] Communication Ability: Effective Visual Impairment: No Limitations Awnings Mechanic Required: No Beliefs That Will Affect Care: None marital status: Single Current Living Situation: Significant Other Current Living Situation Comment: Fiance and 4 kids current occupational status: unemployed How many Children do You have: 4 Other Information That Helps Us Care for You: No Feels Safe at Home: Yes Safety Concerns: Feels Safe At This Time Diet Comment: low fat during the past year weight has: decreased > 10 lbs Assistive Devices: None Review of Systems Review of Systems: All systems reviewed & are unremarkable except as noted in HPI & below Physical Exam Constitutional: WD/WN, vitals as above well groomed, cooperative and comfo rtable Eyes: PERRL, conjunctivae normal, anicteric sclerae ENMT: external ear and nose normal, oropharynx normal Respiratory: normal respiratory effort, lungs clear to auscultation Cardiovascular: RRR, no murmur, no edema Gastrointestinal (Abdomen): Mild distension, BS hypoactive, TTP generalized Skin: no rashes, warm and dry no jaundice Psychiatric: A+Ox3, euthymic affect Lymphatic: no lymphedema Results & Data Vital Signs (Past 12 Hours) Vital Signs Temp Pulse Resp BP Pulse Ox O2 Del Method 03/31/23 08:02 Room Air 03/31/23 07:15 36.6 C 69 16 107/69 99 Room Air (2) Acute pancreatitis Acute pancreatitis complication: unspecified Pancreatitis type: unspecified pancreatitis type Qualified Code(s): K85.90 - Acute pancreatitis without necrosis or infection, unspecified
[2023-03-31] MEDS: RIVAROXABAN 20 MG TAB PO SCH (17:00)
--- NOTE | 2023-03-31 22:39 | Electrocardiogram Report ---
Test Reason : Blood Pressure : / mmHG Vent. Rate : 118 BPM Atrial Rate : 118 BPM P-R Int : 180 ms QRS Dur : 086 ms QT Int : 322 ms P-R-T Axes : 067 -16 076 degrees QTc Int : 451 ms Sinus tachycardia Cannot rule out Anterior infarct (cited on or before 30-MAR-2023) Nonspecific ST and T wave abnormality Abnormal ECG When compared with ECG of 20-MAR-2023 14:52, No significant change was found Confirmed by Viraj Elizalde ([id number]) on 03/31/2023 10:38:55 PM Referred By: REFERRED SELF Confirmed By:Viraj Elizalde
[2023-04-01] MEDS: LACTATED RINGER'S 1,000 ML IV SCH ×3 (06:17→22:28)
[2023-04-01] MEDS: ACETAMINOPHEN 1,000 MG/100 ML VIAL IV SCH ×3 (06:18→22:26)
[2023-04-01 06:38] LABS: Hematocrit (blood only) 29.4 % (42.0-52.0); Mean Platelet Volume 8.9 fL (9.4-12.4); Platelet Count 352 K/uL (130-400); RDW Standard Deviation 46.2 fL (36.4-46.3); Red Blood Count 3.03 M/uL (4.70-6.10); White Blood Count 15.96 K/ul (4.8-10.8)
[2023-04-01 06:42] LABS: BUN Creatinine Ratio 12.8 (10-20); Calcium 8.1 mg/dl (8.6-10.3); Creatinine Clr Calc Pharmacy 79.4 ml/min; Est GFR (African American) 69.2 ml/min; Est GFR (Non-African American) 59.7 ml/min; Potassium 3.3 mmol/L (3.5-5.1)
[2023-04-01] MEDS ORDERED: POTASSIUM CHLORIDE / WTR 20 MEQ/100 ML PLCT IV STA (08:19)
[2023-04-01] MEDS: traMADol HCL 50 MG TABLET PO PRN (08:22)
[2023-04-01] MEDS: allopurinoL 100 MG TAB PO SCH (08:23)
[2023-04-01] MEDS: POTASSIUM CHLORIDE / WTR 10 MEQ/100 ML PLCT IV SCH ×4 (08:57→12:03)
[2023-04-01] MEDS: PANTOprazole 40 MG in SYRINGE 0 ML IV SCH (10:59)
--- NOTE | 2023-04-01 13:10 | Hospitalist Progress Note ---
Date of Service April 01, 2023 Assessment & Plan (1) Acute pancreatitis: Plan: Pt denies any alcohol use since recent discharge. TG level 141 NSS 2L bolus given in ER, continue LR @ 125ml/hr GI increased to clear liquids and ADAT to low fat, when tolerating clears can decreased LR Repeat lipase improved to 118 and T Bili and transaminases are WNL, mild chronic elevation of Alk Phos Pantoprazole due to thickening of stomach on CT - although suspect this is reactive GI recommended to repeat CTAP in 2 weeks, diet as above, continue supportive LR, PPI and keep outpatient follow up visit (2) History of deep vein thrombosis: Plan: Restart Xarelto 20mg daily GI signed off and recommended to keep follow up appt with repeat CTAP in 2 weeks. (3) Hypertension: Plan: Chronic and stable Hold lisinopril in setting of low normal BP currently BP 115/73 (4) Pseudocyst, pancreas: Plan: GI consultd and signed off and patient to keep follow up appt and repeat CTAP in 2 weeks Plan VTE Prophylaxis - restart Xarelto Diet - clear and ADAT to low fat Disposition - admit to med/surg Patient was stable for discharge 04/01/23 BUT had no transportation home and has + COVID so unable to get a Lyft transport Admission and Anticipated Discharge Date Admission Date: March 30, 2023 Subjective Patient is in a Covid isolation room and seen this AM on rounds. He was sleeping and awoke to his name. He states he is feeling much better and no pain currently and tolerating low fat diet. He states he is unable to be discharged home today because his ride (his girlfriend) is too sick today also with covid and he has no one else to pick him up. Review of Systems Review of Systems: All other ROS negative unles stated + above in history Physical Exam Constitutional: WD/WN, vitals as above Eyes: PERRL, conjunctivae normal, anicteric sclerae ENMT: external ear and nose normal, oropharynx normal Neck: trachea midline, no thyromegaly Respiratory: normal respiratory effort, lungs clear to auscultation Cardiovascular: RRR, no murmur, no edema Gastrointestinal (Abdomen): normal bowel sounds, soft, nontender, no hepatosplenomegaly Neurologic: PERRL, EOMI, accommodation nl, no face palsy, no dysarthria Psychiatric: A+Ox3, euthymic affect Results & Data Results & Data Vital Signs (Past 12 Hours) Vital Signs Temp Pulse Resp BP Pulse Ox O2 Del Method 04/01/23 07:15 Room Air 04/01/23 07:07 36.6 C 66 16 115/73 99 Room Air Laboratory Results Abnormal lab results 04/01/23 04/01/23 Range/Units 06:13 06:13 WBC 15.96 H (4.8-10.8) K/ul RBC 3.03 L (4.70-6.10) M/uL Hgb 10.0 L (14.0-18.0) g/dl Hct 29.4 L (42.0-52.0) % MPV 8.9 L (9.4-12.4) fL Potassium 3.3 L (3.5-5.1) mmol/L Creatinine 1.41 H (0.6-1.4) mg/dl Calcium 8.1 L (8.6-10.3) mg/dl PG Care Time/CCT Total # of Minutes Spent Total Time Spent with Patient: Total time spent is greater than 50% in coordination of care (as documented) at patient's floor/unit and/or counseling patient: Coding Level of Care Code 85821 SUB INP/OBS CARE 11/20MIN Diagnoses Acute pancreatitis K85.90 History of deep vein thrombosis Z86.718 Hypertension I10 Hypertension type: unspecified Pseudocyst, pancreas K86.3 (3) Hypertension Hypertension type: unspecified Qualified Code(s): I10 - Essential (primary) hypertension
[2023-04-01] MEDS: RIVAROXABAN 20 MG TAB PO SCH (15:57)
[2023-04-02 06:08] LABS: Basophils # (auto) 0.05 K/uL (0-0.2); Basophils % (auto) 0.5 %; Eosinophils # (auto) 1.11 K/uL (0-0.50); Eosinophils % (auto) 11.5 %; Hematocrit (blood only) 27.6 % (42.0-52.0); Hemoglobin 9.4 g/dl (14.0-18.0); Immature Granulocytes # (auto) 0.03 K/uL (0.01-0.20); Immature Granulocytes % (auto) 0.3 %; Lymphocytes # (auto) 3.05 K/uL (1.2-3.4); Lymphocytes % (auto) 31.5 %; Mean Corpuscular Hemoglobin 33.2 pg (25.0-34.0); Mean Corpuscular Hgb Conc 34.1 g/dL (32.0-36.0); Mean Corpuscular Volume 97.5 fL (80.0-100.0); Mean Platelet Volume 8.9 fL (9.4-12.4); Monocytes # (auto) 0.58 K/uL (0.11-0.59); Neutrophils # (auto) 4.86 K/uL (1.40-6.50); Neutrophils % (auto) 50.2 %; Platelet Count 368 K/uL (130-400); RDW Coefficient of Variation 13.2 % (11.5-14.5); RDW Standard Deviation 47.5 fL (36.4-46.3); Red Blood Count 2.83 M/uL (4.70-6.10); White Blood Count 9.68 K/ul (4.8-10.8)
[2023-04-02] MEDS: LACTATED RINGER'S 1,000 ML IV SCH (06:10)
[2023-04-02] MEDS: ACETAMINOPHEN 1,000 MG/100 ML VIAL IV SCH (06:10)
[2023-04-02 06:22] LABS: Albumin Globulin Ratio 0.7 (0.9-2); Albumin Level 2.4 gm/dl (3.4-5.0); BUN Creatinine Ratio 10.9 (10-20); Bilirubin,Total 0.4 mg/dl (0.2-1.0); Calcium 8.1 mg/dl (8.6-10.3); Creatinine Clr Calc Pharmacy 76.2 ml/min; Est GFR (African American) 65.8 ml/min; Est GFR (Non-African American) 56.8 ml/min; Globulin 3.5 gm/dl (2.5-4.0); Potassium 3.5 mmol/L (3.5-5.1); Total Protein 5.9 gm/dl (6.0-8.3)
[2023-04-02] MEDS ORDERED: PANTOprazole 40 MG TAB PO SCH (09:00)
[2023-04-02] MEDS ORDERED: POTASSIUM CHLORIDE CRTAB 20 MEQ TABCR PO STA (09:24)
[2023-04-02] MEDS: allopurinoL 100 MG TAB PO SCH (09:45)
--- NOTE | 2023-04-02 10:47 | Discharge Summary ---
Date of Service April 02, 2023 Admission HPI Per Admitting Provider Anthony Sharif is a 43 year old male with recurrent alcoholic pancreatitis who presents to the ER due to severe nausea, diarrhea and abdominal pain. He was recently admitted from March 20 - 2022 due to acute pancreatitis with pseudocyst. He underwent ERCP/EUS with CBD stent placement. The patient reports resolution of symptoms prior to discharge. However two days after discharge he started having nausea, vomiting and diarrhea. Unable to keep his medications down. Yesterday severe abdominal pain similar to previous started again with 9/10 severity at worse, currently 8/10 after morphine given in the ER. Worse on palpation and inspiration. No radiation of pain. He therefore returned to the ER. Admission Exam Per Admitting Provider Constitutional: WD/WN, vitals as above Eyes: + anicteric sclerae; normal pupil size ENMT: external ear and nose normal, oropharynx normal Respiratory: normal respiratory effort, lungs clear to auscultation Cardiovascular: RRR, no murmur, no edema Gastrointestinal (Abdomen): Percussion/Palpation: + abdomen tender (epigastric and LUQ) and + guarding Musculoskeletal: no cyanosis or clubbing, extremities motor strength 5/5 Skin: no rashes, warm and dry Neurologic: moves all extremities and awake; not confused Psychiatric: A+Ox3, euthymic affect Principal Diagnosis abdomial pain Covid -19 infecton Discharge Exam Constitutional WD/WN, vitals as above Eyes PERRL, conjunctivae normal, anicteric sclerae ENMT external ear and nose normal, oropharynx normal Neck trachea midline, no thyromegaly Respiratory normal respiratory effort, lungs clear to auscultation Cardiovascular RRR, no murmur, no edema Gastrointestinal (Abdomen) normal bowel sounds, soft, nontender, no hepatosplenomegaly Neurologic PERRL, EOMI, accommodation nl, no face palsy, no dysarthria Psychiatric A+Ox3, euthymic affect Discharge Data Allergies Allergy/AdvReac Type Severity Reaction Status Date / Time cephalexin Allergy Mild Rash Verified 03/30/23 15:00 Consultations 03/30/23 14:03 ED Decision to Admit Stat 03/30/23 15:33 Consult Gastroenterology Routine Ordered Studies 03/30/23 11:36 CT abd pelvis wo con Stat Hospital Course (1) Acute pancreatitis: Pt denies any alcohol use since recent discharge. TG level 141 NSS 2L bolus given in ER, continue LR @ 125ml/hr GI increased to clear liquids and ADAT to low fat, when tolerating clears can decreased LR Repeat lipase improved to 118 and T Bili and transaminases are WNL, mild chronic elevation of Alk Phos Pantoprazole due to thickening of stomach on CT - although suspect this is reactive GI recommended to repeat CTAP in 2 weeks, diet as above, continue supportive LR, PPI and keep outpatient follow up visit Today, patient without any further abdominal pain, N/V or diarhea suspect all symptoms were actually secondary to Covid (2) History of deep vein thrombosis: Restart Xarelto 20mg daily GI signed off and recommended to keep follow up appt with repeat CTAP in 2 weeks. (3) Hypertension: Chronic and stable Hold lisinopril in setting of low normal BP currently BP 125/80 (4) Pseudocyst, pancreas: GI consultd and signed off and patient to keep follow up appt and repeat CTAP in 2 weeks Plan VTE Prophylaxis - restart Xarelto Patient was stable for discharge 04/01/23 BUT had no transportation home and has + COVID so unable to get a Lyft transport D/C to home today, patient has transportation to home Total Time Total Time Spent Total Time Spent (In Minutes): 35 Discharge Plan Discharge Items Patient Disposition: Home - Self-Care Reason For Visit: ACUTE PANCREATITIS Discharge Diagnosis: abdominal pain, nausea, vomiting and diarrhea secondary to acute covid Condition on Discharge: Good Activity: Resume your previous activity Lifting: Gradually increase as tolerated Weightbearing: Full weightbearing Non-emergency contact: Primary Care Provider Call non-emergency contact if: you have any medication questions, your symptoms worsen and your temperature is above 101.5 Follow-up/Referrals: Jaja Cali MD [Primary Care Provider] - 04/09/23 2:00 pm Diet: Low Fat Addtl Attending Provider Instructions: You were admitted with abdominal pain and found to incidentally have Covid infection. You were evaluated by GI and they recommended to get a repeat scan in 2weeks and keep the follow up endoscopy for the stent removal in May Pending Studies at Discharge: No Stand-Alone Forms: My [facility] Medications and DC Order Prescriptions: Continued pantoprazole 40 mg tablet,delayed release (DR/EC) 40 mg PO DAILY Qty: 90 3RF allopurinol 100 mg tablet 100 mg PO DAILY Qty: 90 3RF calcitriol 0.25 mcg capsule 0.25 mcg PO 3XWK Qty: 45 1RF Rx Instructions: TAKE THIS MED EVERY MON/FRI/FRI lisinopril 5 mg tablet 5 mg PO DAILY Qty: 90 3RF ergocalciferol (vitamin D2) 1,250 mcg (50,000 unit) capsule 50,000 unit PO WEEKLY Qty: 12 0RF Rx Instructions: TAKE THIS MED EVERY FRIDAY Xarelto 20 mg tablet 20 mg PO DAILYBD Hold Instructions: Resume on 03/27/23. hold for 7 days following ERCP Rx Instructions: must administer with evening meal Discharge Orders: Discharge Order (Routine); Ordered 04/02/23 Ordered By: Melita Mcadams Admission Data Admit Date/Time: 03/30/23 15:29 Attending Provider: Raimundo Villa Admit Provider: Erich Egan Primary Care Provider: Jaja Cali Other Providers: Erich Egan ; Robby Gee Jr Coding Level of Care Code 75968 INP/OBS DISCH >30 MIN Diagnoses Acute pancreatitis K85.90 History of deep vein thrombosis Z86.718 Hypertension I10 Hypertension type: unspecified Pseudocyst, pancreas K86.3 Time Spent (min) 35
== END 2023-04-02 14:15 | disposition home or self-care (01) | DRG 177 ==
LOC: ED 09:58 → SUATTDRO 15:29 → 3E 15:29

== ENCOUNTER 2023-04-13 15:22 | Observation (INO) ==
--- NOTE | 2023-04-13 16:24 | Emergency Department Note ---
Impression & Plan Acute on chronic pancreatitis, Abdominal pain, Anemia, Pancreatic pseudocyst, Nausea & vomiting, Acute dehydration ED Provider Note NAME: JOCELYN JENSEN AGE: 43 SEX: M : 1980 ARRIVES VIA: Walk-In INFORMANT: Patient, ED PROVIDER(S): Raymond Chao MD CHIEF COMPLAINT: Abdominal pain MEDICAL DECISION MAKING: Patient presents due to concern for left lower quadrant pain with a known setting of chronic pancreatitis. The patient does have epigastric discomfort as well. IV was established blood work was obtained and the patient did receive IV fluids IV morphine and IV Zofran. The patient's blood work shows white count of 12 with a hemoglobin of 12. Platelet count is unremarkable. Patient's anemia is improved compared to prior. The patient's kidney function is unremarkable with relatively normal electrolytes. Alk phos slightly elevated 118. Lipase is elevated to 17 which is higher compared to prior. Urinalysis without evidence of obvious infection. CT abdomen pelvis does show likely acute on chronic pancreatitis. Pseudocyst is decreased in size. CBD duct stent in place and patent. Patient was ordered Dilaudid 0.5 mg IV. Patient had associated nausea was ordered additional IV Zofran. Given the patient's acute on chronic pancreatitis and elevated lipase that is being the on-call hospital service Dr. Hernandez the patient was admitted to the medicine service. Prior /Outside records reviewed: I reviewed a discharge summary from March 2023. Known history of alcoholic pancreatitis has a known history of a pseudocyst DVT hypertension and pancreatitis at the time of his admission. Differential diagnosis: Appendicitis, testicular torsion, infections, diverticulitis, UTI, obstruction, mesenteric ischemia, aortic pathology, inflammatory bowel disease, renal colic, PUD, pancreatitis, biliary pathology, hernia, volvulus, constipation, as well as other pathologies. Diagnostics, as interpreted by me: ECG: None Cardiac monitoring: An order was placed for continuous cardiac monitoring. The monitor shows a rate of 92 with sinus rhythm. Patient was placed on pulse oximetry Medical decision rules: None Imaging studies: See below HPI: Patient presents due to concern for abdominal pain that began today. The patient did state that he had an outpatient CAT scan done with p.o. contrast and that since then he did have some looser stools but seem to be okay but did develop some pain with associated nausea and vomiting. The patient has vomited approximate 5 times today. No blood. Patient denies any recent alcohol use. Patient denies any falls or trauma. The patient states that he did develop left lower quadrant pain and was concerned about this. No blood in urine or stool. No prior history of kidney stones. Patient denies any chest pains or shortness of breath. The patient did try some Pepto-Bismol without significant improvement in symptoms. PAST MEDICAL HISTORY: See Below PAST SURGICAL HISTORY: See Below SOCIAL HISTORY: See Below HOME MEDICATIONS: See Below ALLERGIES: See Below VITALS: See Below PHYSICAL EXAMINATION: GENERAL: NAD, fatigable in appearance, non-toxic. EYE EXAM: Normal conjunctiva. PERRL, no anisocoria and EOM's grossly intact w/o pain. NECK: Supple, no nuchal rigidity, no adenopathy, non-tender. No signs of meningismus. FROM of the neck with good chin to chest and neck extension. No stridor. LUNGS: Clear to auscultation. Normal chest wall mechanics. HEART: NSR, no MRG. ABDOMEN: Abdomen soft, epigastric and left lower quadrant pain, no masses, no rebound or guarding. BACK: mild left-sided CVA TTP without overlying skin changes SKIN: No rashes and no bruising. UPPER EXTREMITIES: Upper extremities are grossly normal. LOWER EXTREMITIES: Grossly normal, no edema. NEURO EXAM: A&O x3, cranial nerves II-XII grossly intact, normal speech, moves all 4 extremities. Past Med/Surg History Medical History Abdominal pain Acute dehydration Acute pancreatitis Acute pancreatitis Alcohol use disorder Anemia Chronic kidney disease with symptom management only, stage 4 (severe) Chronic venous insufficiency Coagulopathy COVID Deep vein thrombosis 07/2018/CHRONIC- ON Xarelto Esophagitis Hematemesis Hypertension Hypokalemia MVP (mitral valve prolapse) 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 ECHO Osteomyelitis of ankle or foot, left, acute Pancreatitis Portal vein thrombosis Pseudocyst, pancreas Secondary hyperparathyroidism of renal origin Traumatic open wound of left lower leg Vitamin D deficiency Vomiting Surgical History Hx of biopsy LEFT KIDNEY S/P vascular surgery LLE 2/2 VENOUS INSUFFICIENCY Status post left foot surgery I and D of left foot on 08/22/21. LMA #5 Family History Mother FHx: lung cancer Hypertension Breast cancer Brother FHx: testicular cancer Hypertension Father Hypertension Unknown Myocardial infarction Social History Smoking Status: Never smoker Second Hand Exposure: No; Do You Dip or Chew Tobacco: No; Hx Alcohol Use: Yes Alcohol type: hard liquor Hx Substance Use: No Preferred Language: French Communication Ability: Effective Visual Impairment: No Limitations Records Associate Required: No Beliefs That Will Affect Care: None marital status: Single Current Living Situation: Significant Other Current Living Situation Comment: Fiance and 4 kids current occupational status: unemployed How many Children do You have: 4 Feels Safe at Home: Yes Diet Comment: low fat during the past year weight has: decreased > 10 lbs Assistive Devices: None Allergies Allergies Allergy/AdvReac Type Severity Reaction Status Date / Time cephalexin Allergy Intermediate Rash Verified 04/13/23 17:26 Home Meds Home Medications Medication Instructions Recorded Confirmed rivaroxaban 20 mg tablet (Xarelto) 20 mg PO QDD 03/20/23 04/13/23 Previous Rx's Medication Instructions Recorded pantoprazole 40 mg tablet,delayed 40 mg PO DAILY #90 tabs 04/22/22 release allopurinol 100 mg tablet 100 mg PO DAILY #90 tabs 09/09/22 calcitriol 0.25 mcg capsule 0.25 mcg PO 3XWK #45 caps 01/29/23 ergocalciferol (vitamin D2) 1,250 50,000 unit PO WEEKLY #12 caps 02/26/23 mcg (50,000 unit) capsule lisinopril 5 mg tablet 5 mg PO DAILY #90 tabs 02/26/23 Results & Data (ED) Vital Signs Vital Signs - 24 hr 04/13/23 15:25 04/13/23 16:45 04/13/23 18:00 Temperature 36.6 C Temperature Source Oral Pulse Rate 125 H 97 H Pulse Rate [Apical] 80 Pulse Rhythm [Apical] Regular Pulse Strength [Apical] Normal Respiratory Rate 20 16 Respiratory Effort / Characteristics Non-Labored Non-Labored Spontaneous Respiratory Depth Normal Normal Respiratory Pattern Regular Blood Pressure 128/96 Blood Pressure [Right Arm] 153/112 H Blood Pressure Mean 106 Blood Pressure Mean [Right Arm] 125 Pulse Oximetry 98 98 Oxygen Delivery Method Room Air Room Air Sepsis Recent Fever Within 48 Hours No Sepsis New/Unexplained Change in Mental Status N/A Sepsis Action Taken by Nursing No Action Required 04/13/23 19:47 04/13/23 19:48 04/13/23 20:00 Temperature Temperature Source Pulse Rate 77 Pulse Rate [Apical] 80 Pulse Rhythm [Apical] Pulse Strength [Apical] Respiratory Rate 18 16 Respiratory Effort / Characteristics Non-Labored Spontaneous Respiratory Depth Normal Respiratory Pattern Blood Pressure 164/113 H Blood Pressure [Right Arm] 161/113 H Blood Pressure Mean 130 Blood Pressure Mean [Right Arm] 129 Pulse Oximetry 99 98 98 Oxygen Delivery Method Room Air Room Air Sepsis Recent Fever Within 48 Hours Sepsis New/Unexplained Change in Mental Status Sepsis Action Taken by Nursing 04/13/23 21:23 04/13/23 21:30 Temperature Temperature Source Pulse Rate 80 83 Pulse Rate [Apical] Pulse Rhythm [Apical] Pulse Strength [Apical] Respiratory Rate 18 Respiratory Effort / Characteristics Respiratory Depth Respiratory Pattern Blood Pressure 155/114 H Blood Pressure [Right Arm] Blood Pressure Mean 127 Blood Pressure Mean [Right Arm] Pulse Oximetry 100 Oxygen Delivery Method Sepsis Recent Fever Within 48 Hours Sepsis New/Unexplained Change in Mental Status Sepsis Action Taken by Prison Medications Current Medication List: was personally reviewed by me Laboratory Data Attestation: I reviewed the patient's lab results. 04/13/23 15:59 04/13/23 15:59 Lab Results 04/13/23 04/13/23 04/13/23 Range/Units 15:59 15:59 17:53 WBC 12.31 H (4.8-10.8) K/ul RBC 3.85 L (4.70-6.10) M/uL Hgb 12.7 L (14.0-18.0) g/dl Hct 37.8 L (42.0-52.0) % MCV 98.2 (80.0-100.0) fL MCH 33.0 (25.0-34.0) pg MCHC 33.6 (32.0-36.0) g/dL RDW Std Deviation 49.5 H (36.4-46.3) fL RDW Coeff of Machelle 13.7 (11.5-14.5) % Plt Count 322 (130-400) K/uL MPV 8.8 L (9.4-12.4) fL Immature Gran % (Auto) 0.4 % Neut % (Auto) 74.9 % Lymph % (Auto) 17.4 % [place] % (Auto) 3.8 % Eos % (Auto) 2.8 % Baso % (Auto) 0.7 % Neut # (Auto) 9.22 H (1.40-6.50) K/uL Lymph # (Auto) 2.14 (1.2-3.4) K/uL [place] # (Auto) 0.47 (0.11-0.59) K/uL Eos # (Auto) 0.34 (0-0.50) K/uL Baso # (Auto) 0.09 (0-0.2) K/uL Immature Gran # (Auto) 0.05 (0.01-0.20) K/uL Sodium 139 (136-145) mmol/L Potassium 3.7 (3.5-5.1) mmol/L Chloride 105 (98-107) mmol/L Carbon Dioxide 25 (21-32) mmol/L Anion Gap 9 (3-11) BUN 13 (6-23) mg/dl Creatinine 1.30 (0.6-1.4) mg/dl Est Cr Clr Drug Dosing 86.5 ml/min Est GFR ( Amer) 76.4 ml/min Est GFR (Non-Af Amer) 65.9 ml/min BUN/Creatinine Ratio 10.0 (10-20) Glucose 94 (70-99(Fasting)) mg/dl Calcium 9.7 (8.6-10.3) mg/dl Total Bilirubin 0.5 (0.2-1.0) mg/dl AST 28 (13-39) U/L ALT 18 (7-52) U/L Alkaline Phosphatase 118 H (34-104) U/L Total Protein 8.0 (6.0-8.3) gm/dl Albumin 3.7 (3.4-5.0) gm/dl Globulin 4.3 H (2.5-4.0) gm/dl Albumin/Globulin Ratio 0.9 (0.9-2) Lipase 217 H (11-82) U/L Urine Color Yellow Urine Appearance Clear (Clear) Urine pH 7.0 (4.5-7.5) Ur Specific [place] 1.021 (1.000-1.030) Urine Protein Negative (Negative) Urine Glucose (UA) Negative (Negative) Urine Ketones Trace H (Negative) Urine Blood Negative (Negative) Urine Nitrite Negative (Negative) Urine Bilirubin Negative (Negative) Urine Urobilinogen Negative (Negative) Ur Leukocyte Esterase Negative (Negative) Administered Medications Discontinued Medications Hydromorphone HCl (Hydromorphone Inj 0.5 Mg/0.5 Ml Syr) 0.5 mg IV NOW STA Stop: 04/13/23 18:32 Last Admin: 04/13/23 19:08 Dose: 0.5 mg Documented By: RICARDA Sodium Chloride (Nss 1000ml) 1,000 mls @ 999 mls/hr IV .Q1H1M STA Stop: 04/13/23 17:27 Last Infusion: 04/13/23 19:06 Dose: 0 mls/hr Documented By: Admin: 04/13/23 16:41 Dose: 999 mls/hr Documented By: RICHARD Sodium Chloride (Nss 1000ml) 1,000 mls @ 999 mls/hr IV .Q1H1M ONE Stop: 04/13/23 21:25 Last Admin: 04/13/23 20:54 Dose: 999 mls/hr Documented By: BEHZAD Ioversol (Optiray 320 100ml) 91 ml IV ONCE ONE Stop: 04/13/23 17:35 Last Admin: 04/13/23 17:35 Dose: 91 ml Documented By: ADELE Morphine Sulfate (Morphine Sulfate 4 Mg/Ml 1 Ml Carp\Vial) 4 mg IV NOW STA Stop: 04/13/23 16:28 Last Admin: 04/13/23 16:41 Dose: 4 mg Documented By: RSL Ondansetron HCl (Ondansetron Inj 2 Mg/Ml 2 Ml Vial) 4 mg IV NOW STA Stop: 04/13/23 16:28 Last Admin: 04/13/23 16:41 Dose: 4 mg Documented By: RSL Ondansetron HCl (Ondansetron Inj 2 Mg/Ml 2 Ml Vial) 4 mg IV NOW STA Stop: 04/13/23 21:00 Last Admin: 04/13/23 21:05 Dose: 4 mg Documented By: TAMMYW Imaging Data Radiologist's Impression: Abdomen/Pelvis CT 04/13/23 16:43 CT SCAN OF THE ABDOMEN AND PELVIS WITH IV CONTRAST CLINICAL HISTORY: Epigastric/left upper quadrant abdominal pain. Chronic pancreatitis. Pseudocyst. COMPARISON STUDY: Prior abdominal CT scans, most recently dated 03/30/2023. TECHNIQUE: Following the IV administration of 91 cc of Optiray 320, CT scan of the abdomen and pelvis is performed from the lung bases to the proximal femora. Images are reviewed in the axial, sagittal, and coronal planes. IV contrast was administered without complication. A dose lowering technique was utilized adhering to the principles of ALARA. CT DOSE: 1175.95 mGy.cm FINDINGS: Lung bases: The heart is mildly enlarged an without pericardial effusion. There are coronary artery calcifications. The lung bases are clear. There is a small hiatal hernia. Liver: The contrast-enhanced liver is mildly enlarged measuring 18.3 cm in length. The liver is otherwise normal in contour and attenuation. A common bile duct stent is in place. Pneumobilia suggests patency of the stent. There is no intrahepatic biliary ductal dilatation. The hepatic veins and portal veins are patent. There is mild focal narrowing at the portal splenic confluence. Gallbladder: Gas within the common bile duct is likely related to the presence of a common bile duct stent. There is no CT evidence of acute cholecystitis. Spleen: Normal in size and attenuation. The splenic vein is patent. Pancreas: The pancreas is atrophic, edematous, and with surrounding inflammation and fluid. The gland enhances throughout. The pancreatic duct is dilated, measuring up to 8 mm in diameter. This is similar to previous. A fluid collection within the pancreatic head on image #116 measures 2.9 x 1.5 cm. This is decreased in size from previous. 2 cyst-gastrostomy tubes are in place. The pseudocyst previously seen along the greater curvature of the stomach has almost completely resolved. A tiny residual collection at this site on image #72 measures 2.1 x 0.7 cm. There is wall thickening of the proximal stomach at this site with surrounding inflammation. Adrenal glands: Unremarkable. Kidneys: The contrast enhanced kidneys are normal in size and without hydronep hrosis. The kidneys enhance symmetrically. Abdominal vasculature: The abdominal aorta is normal in course and caliber noting mild to moderate atherosclerotic calcification. Bowel: There are scattered colonic diverticula without CT evidence of acute diverticulitis. No bowel obstruction is seen. The appendix is well-visualized and normal. Duodenal wall thickening has decreased from previous. Peritoneum: No intraperitoneal free air is seen. There is trace pelvic ascites. There is a fat-containing umbilical hernia. Lymphadenopathy: Prominent upper abdominal, retroperitoneal, and mesenteric ly mph nodes are likely reactive. Pelvic viscera: The bladder, prostate, and seminal vesicles are normal as visualized. Skeletal structures: No lytic or blastic lesions are seen. IMPRESSION: 1. The pancreas is atrophic, edematous, and with surrounding inflammation and fluid. The appearance suggests acute pancreatitis. This is likely acute on chronic. Correlate with clinical and laboratory findings. 2. A pseudocyst within the pancreatic head has significantly decreased in size from prior examinations. 3. Two cyst-gastrostomy tubes are again seen between the proximal stomach and an adjacent pseudocyst. This pseudocyst has almost completely resolved as compared to previous. See above. 4. A common bile duct stent is in place. Pneumobilia and gas within the gallbladder suggest patency of the stent. 5. The pancreatic parenchyma appears to enhance throughout. 6. Gastric wall thickening is likely related to the presence of the cyst- gastrostomy tubes and adjacent pancreatitis. 7. Trace pelvic ascites. 8. Pancreatic ductal dilatation is unchanged. 9. Prominent upper abdominal, retroperitoneal, mesenteric lymph nodes are similar to previous and likely reactive. 10. Additional findings as above. ACT 112: Negative or not required by law. Electronically signed by: Cuco Ramos M.D. 04/13/2023 8:12 PM Discharge Plan Visit Data Chief Complaint: Flank Pain Stated Complaint: LEFT FLANK PAIN, VOMITING ED Provider: Raymond Chao Discharge Problem: Acute on chronic pancreatitis, Abdominal pain, Anemia, Pancreatic pseudocyst, Nausea & vomiting, Acute dehydration Forms Stand Alone Forms: [facility] Pradama Prescriptions Prescriptions: No Action pantoprazole 40 mg tablet,delayed release (DR/EC) 40 mg PO DAILY Qty: 90 3RF allopurinol 100 mg tablet 100 mg PO DAILY Qty: 90 3RF calcitriol 0.25 mcg capsule 0.25 mcg PO 3XWK Qty: 45 1RF Rx Instructions: TAKE THIS MED EVERY MON/FRI/FRI lisinopril 5 mg tablet 5 mg PO DAILY Qty: 90 3RF ergocalciferol (vitamin D2) 1,250 mcg (50,000 unit) capsule 50,000 unit PO WEEKLY Qty: 12 0RF Rx Instructions: TAKE THIS MED EVERY FRIDAY Xarelto 20 mg tablet 20 mg PO QDD Hold Instructions: Resume on 03/27/23. hold for 7 days following ERCP Rx Instructions: must administer with evening meal Referrals Referrals: Jaja Cali MD [Primary Care Provider] -
[2023-04-13] MEDS ORDERED: ONDANSETRON INJ 2 MG/ML 2 ML VIAL IV STA ×2 (16:27→20:59)
[2023-04-13] MEDS ORDERED: MoRPHine SULFATE 4 MG/ML 1 ML CARP\\VIAL IV STA (16:27)
[2023-04-13] MEDS ORDERED: SODIUM CHLORIDE 0.9% 1000ML 1,000 ML IV STA (16:27)
[2023-04-13 16:49] LABS: Basophils # (auto) 0.09 K/uL (0-0.2); Basophils % (auto) 0.7 %; Eosinophils # (auto) 0.34 K/uL (0-0.50); Eosinophils % (auto) 2.8 %; Hematocrit (blood only) 37.8 % (42.0-52.0); Hemoglobin 12.7 g/dl (14.0-18.0); Immature Granulocytes # (auto) 0.05 K/uL (0.01-0.20); Immature Granulocytes % (auto) 0.4 %; Lymphocytes # (auto) 2.14 K/uL (1.2-3.4); Lymphocytes % (auto) 17.4 %; Mean Corpuscular Hgb Conc 33.6 g/dL (32.0-36.0); Mean Corpuscular Volume 98.2 fL (80.0-100.0); Mean Platelet Volume 8.8 fL (9.4-12.4); Monocytes # (auto) 0.47 K/uL (0.11-0.59); Monocytes % (auto) 3.8 %; Neutrophils # (auto) 9.22 K/uL (1.40-6.50); Neutrophils % (auto) 74.9 %; Platelet Count 322 K/uL (130-400); RDW Coefficient of Variation 13.7 % (11.5-14.5); RDW Standard Deviation 49.5 fL (36.4-46.3); Red Blood Count 3.85 M/uL (4.70-6.10); White Blood Count 12.31 K/ul (4.8-10.8)
[2023-04-13 17:06] LABS: Albumin Globulin Ratio 0.9 (0.9-2); Albumin Level 3.7 gm/dl (3.4-5.0); Bilirubin,Total 0.5 mg/dl (0.2-1.0); Calcium 9.7 mg/dl (8.6-10.3); Creatinine Clr Calc Pharmacy 86.5 ml/min; Est GFR (African American) 76.4 ml/min; Est GFR (Non-African American) 65.9 ml/min; Globulin 4.3 gm/dl (2.5-4.0); Potassium 3.7 mmol/L (3.5-5.1)
[2023-04-13] MEDS ORDERED: OPTIRAY 320 100ml IV ONE (17:34)
[2023-04-13 18:06] LABS: Appearance Urine Clear (Clear); Bilirubin Urine Negative (Negative); Blood Urine Negative (Negative); Color Urine Yellow; Glucose Urine UA Negative (Negative); Ketones Urine Trace (Negative); Leukocyte Esterase Urine Negative (Negative); Nitrite Urine Negative (Negative); Protein Urine Negative (Negative); Specific Gravity Urine 1.021 (1.000-1.030); Urobilinogen Urine Negative (Negative)
[2023-04-13] MEDS ORDERED: HYDROmorphone INJ 0.5 MG/0.5 ML SYR IV STA (18:31)
--- NOTE | 2023-04-13 20:14 | CT Scan Report ---
CT SCAN OF THE ABDOMEN AND PELVIS WITH IV CONTRAST CLINICAL HISTORY: Epigastric/left upper quadrant abdominal pain. Chronic pancreatitis. Pseudocyst. COMPARISON STUDY: Prior abdominal CT scans, most recently dated 03/30/2023. TECHNIQUE: Following the IV administration of 91 cc of Optiray 320, CT scan of the abdomen and pelvi s is performed from the lung bases to the proximal femora. Images are reviewed in the axial, sagittal , and coronal planes. IV contrast was administered without complication. A dose lowering technique wa s utilized adhering to the principles of ALARA. CT DOSE: 1175.95 mGy.cm FINDINGS: Lung bases: The heart is mildly enlarged an without pericardial effusion. There are coronary artery c alcifications. The lung bases are clear. There is a small hiatal hernia. Liver: The contrast-enhanced liver is mildly enlarged measuring 18.3 cm in length. The liver is other silver normal in contour and attenuation. A common bile duct stent is in place. Pneumobilia suggests pa tency of the stent. There is no intrahepatic biliary ductal dilatation. The hepatic veins and portal veins are patent. There is mild focal narrowing at the portal splenic confluence. Gallbladder: Gas within the common bile duct is likely related to the presence of a common bile duct stent. There is no CT evidence of acute cholecystitis. Spleen: Normal in size and attenuation. The splenic vein is patent. Pancreas: The pancreas is atrophic, edematous, and with surrounding inflammation and fluid. The gland enhances throughout. The pancreatic duct is dilated, measuring up to 8 mm in diameter. This is simil ar to previous. A fluid collection within the pancreatic head on image #116 measures 2.9 x 1.5 cm. Th is is decreased in size from previous. 2 cyst-gastrostomy tubes are in place. The pseudocyst previous ly seen along the greater curvature of the stomach has almost completely resolved. A tiny residual co llection at this site on image #72 measures 2.1 x 0.7 cm. There is wall thickening of the proximal st omach at this site with surrounding inflammation. Adrenal glands: Unremarkable. Kidneys: The contrast enhanced kidneys are normal in size and without hydronephrosis. The kidneys enh ance symmetrically. Abdominal vasculature: The abdominal aorta is normal in course and caliber noting mild to moderate at herosclerotic calcification. Bowel: There are scattered colonic diverticula without CT evidence of acute diverticulitis. No bowel obstruction is seen. The appendix is well-visualized and normal. Duodenal wall thickening has decrea sed from previous. Peritoneum: No intraperitoneal free air is seen. There is trace pelvic ascites. There is a fat-contai christen umbilical hernia. Lymphadenopathy: Prominent upper abdominal, retroperitoneal, and mesenteric lymph nodes are likely re active. Pelvic viscera: The bladder, prostate, and seminal vesicles are normal as visualized. Skeletal structures: No lytic or blastic lesions are seen. IMPRESSION: 1. The pancreas is atrophic, edematous, and with surrounding inflammation and fluid. The appearance s uggests acute pancreatitis. This is likely acute on chronic. Correlate with clinical and laboratory f indings. 2. A pseudocyst within the pancreatic head has significantly decreased in size from prior examination s. 3. Two cyst-gastrostomy tubes are again seen between the proximal stomach and an adjacent pseudocyst. This pseudocyst has almost completely resolved as compared to previous. See above. 4. A common bile duct stent is in place. Pneumobilia and gas within the gallbladder suggest patency o f the stent. 5. The pancreatic parenchyma appears to enhance throughout. 6. Gastric wall thickening is likely related to the presence of the cyst-gastrostomy tubes and adjace nt pancreatitis. 7. Trace pelvic ascites. 8. Pancreatic ductal dilatation is unchanged. 9. Prominent upper abdominal, retroperitoneal, mesenteric lymph nodes are similar to previous and lik gatito reactive. 10. Additional findings as above. ACT 112: Negative or not required by law. Electronically signed by: Cuco Ramos M.D. 04/13/2023 8:12 PM
[2023-04-13] MEDS ORDERED: SODIUM CHLORIDE 0.9% 1000ML 1,000 ML IV ONE (20:25)
--- NOTE | 2023-04-13 22:46 | History & Physical Report ---
Date of Service April 13, 2023 Assessment & Plan (1) Acute on chronic pancreatitis: Plan: 43 yo male PMHx recurrent alcoholic pancreatitis, h/o DVT, HTN, and gout presents with 3 days LUQ abd pain. #Acute on chronic pancreatitis #Pancreatic pseudocyst, chronic -presented with 3 days ongoing LUQ abd pain, N/V, diarrhea. Lipase elevated, 217. Mild leukocytosis however do not suspect infection. CT findings consistent with acute on chronic pancreatitis. Trigger unknown, likely idiopathic as he has a low threshold for flares. Pt denies alcohol use for the last month. Follows with [facility] and has CBD stent and 2 cyst gastrotomy tubes in place which appear stable on imaging. -CT A/P: Pancreas is atrophic, edematous, and with surrounding inflammation and fluid. Pseudocyst within the pancreatic head has significantly decreased in size from prior examinations. -2L NSS given in ED. Cont. LRs @ 250. -clear diet, progress as tolerated -IV zofran for nausea -IV tylenol and morphine prn for pain -consider GI consult due to frequency and complicated history #h/o DVT -cont. xarelto daily #HTN -cont. home lisinopril #Gout -cont. home allopurinol #GERD -cont. home pantoprazole DVT ppx: Xarelto FEN/GI: clears, LRs @ 250 Code Status: Full Dispo: Med Surg (2) Pancreatic pseudocyst: (3) History of deep vein thrombosis: (4) GERD (gastroesophageal reflux disease): (5) Hypertension: History of Present Illness Chief Complaint: pancreatitis Primary Care Provider: Jaja Cali MD 43 yo male PMHx recurrent alcoholic pancreatitis, h/o DVT, HTN, and gout presents with 3 days LUQ abd pain. 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 He follows with [facility] and has a CBD stent along with 2 cyst gastrotomy tubes in place. 1 day prior to symptom onset he had a CT A/P with contrast performed to evaluate the stents. He states that after the study is when he started experiencing his abdominal pain. He has associated nausea, vomiting, and diarrhea but denies blood in his stool. He typically is on a low-fat diet but does endorse having Munroe's that day as well. Otherwise no obvious triggers. He has not consumed alcohol in the last month. No new medications. His fevers, fatigue, cough, congestion, shortness of breath, chest pain, constipation, dysuria. Allergies Allergy/AdvReac Type Severity Reaction Status Date / Time cephalexin Allergy Intermediate Rash Verified 04/13/23 17:26 Home Medications Medication Instructions Recorded Confirmed Type pantoprazole 40 mg tablet,delayed 40 mg PO DAILY #90 tabs 04/22/22 04/13/23 Rx release allopurinol 100 mg tablet 100 mg PO DAILY #90 tabs 09/09/22 04/13/23 Rx calcitriol 0.25 mcg capsule 0.25 mcg PO 3XWK #45 caps 01/29/23 04/13/23 Rx ergocalciferol (vitamin D2) 1,250 50,000 unit PO WEEKLY #12 caps 02/26/23 04/13/23 Rx mcg (50,000 unit) capsule lisinopril 5 mg tablet 5 mg PO DAILY #90 tabs 02/26/23 04/13/23 Rx rivaroxaban 20 mg tablet (Xarelto) 20 mg PO QDD 03/20/23 04/13/23 History Past Med/Surg History Medical History Abdominal pain Acute dehydration Acute pancreatitis Acute pancreatitis Alcohol use disorder Anemia Chronic kidney disease with symptom management only, stage 4 (severe) Chronic venous insufficiency Coagulopathy COVID Deep vein thrombosis 07/2018/CHRONIC- ON Xarelto Esophagitis Hematemesis Hypertension Hypokalemia MVP (mitral valve prolapse) 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 ECHO Osteomyelitis of ankle or foot, left, acute Pancreatitis Portal vein thrombosis Pseudocyst, pancreas Secondary hyperparathyroidism of renal origin Traumatic open wound of left lower leg Vitamin D deficiency Vomiting Surgical History Hx of biopsy LEFT KIDNEY S/P vascular surgery LLE 2/2 VENOUS INSUFFICIENCY Status post left foot surgery I and D of left foot on 08/22/21. LMA #5 Family History Mother FHx: lung cancer Hypertension Breast cancer Brother FHx: testicular cancer Hypertension Father Hypertension Unknown Myocardial infarction Social History Smoking Status: Never smoker Second Hand Exposure: No; Do You Dip or Chew Tobacco: No; Hx Alcohol Use: Yes Alcohol type: hard liquor Hx Substance Use: No Preferred Language: French Communication Ability: Effective Visual Impairment: No Limitations Hull Drafter Required: No Beliefs That Will Affect Care: None marital status: Single Current Living Situation: Family and Significant Other Current Living Situation Comment: Fiance and 4 kids current occupational status: unemployed How many Children do You have: 4 Feels Safe at Home: Yes Safety Concerns: Feels Safe At This Time Diet Comment: low fat during the past year weight has: decreased > 10 lbs Assistive Devices: None Review of Systems Review of Systems: All systems reviewed & are unremarkable except as noted in HPI & below Physical Exam Physical Exam: Constitutional: Well-developed, well-nourished patient, in no acute distress, pleasant. AOx3. Vitals as above. HEENT: No scleral injection or discharge.Moist mucous membranes. Clear oropharynx. Neck: Supple without lymphadenopathy or thyromegaly. Trachea midline. Lungs: Clear to auscultation bilaterally with good effort. Cardiac: Regular rate and rhythm. No murmurs. No extremity edema. 2+ distal peripheral pulses. Abdomen: Bowel sounds present. Soft, nontender, and nondistended.No guarding or rebound tenderness. No hepatosplenomegaly. MSK: No cyanosis or clubbing. Extremities motor strength 5/5. Skin: venous stasis changes bilateral lower extremities Neurologic: no focal deficits Results & Data Results & Data Vital Signs (Past 12 Hours) Vital Signs Temp Pulse Pulse Resp BP BP Pulse Ox 04/13/23 22:30 80 18 133/97 99 04/13/23 21:30 83 18 155/114 H 100 04/13/23 21:23 80 04/13/23 20:00 77 16 164/113 H 98 04/13/23 19:48 98 04/13/23 19:47 80 18 161/113 H 99 04/13/23 18:00 80 16 153/112 H 98 04/13/23 16:45 97 H 04/13/23 15:25 36.6 C 125 H 20 128/96 98 O2 Del Method 04/13/23 22:30 04/13/23 21:30 04/13/23 21:23 04/13/23 20:00 04/13/23 19:48 Room Air 04/13/23 19:47 Room Air 04/13/23 18:00 Room Air 04/13/23 16:45 04/13/23 15:25 Room Air Laboratory Results Laboratory Results WBC 12.31 K/ul (4.8-10.8) H 04/13/23 15:59 RBC 3.85 M/uL (4.70-6.10) L 04/13/23 15:59 Hgb 12.7 g/dl (14.0-18.0) L 04/13/23 15:59 Hct 37.8 % (42.0-52.0) L 04/13/23 15:59 MCV 98.2 fL (80.0-100.0) 04/13/23 15:59 MCH 33.0 pg (25.0-34.0) 04/13/23 15:59 MCHC 33.6 g/dL (32.0-36.0) 04/13/23 15:59 RDW Std Deviation 49.5 fL (36.4-46.3) H 04/13/23 15:59 RDW Coeff of Machelle 13.7 % (11.5-14.5) 04/13/23 15:59 Plt Count 322 K/uL (130-400) 04/13/23 15:59 MPV 8.8 fL (9.4-12.4) L 04/13/23 15:59 Immature Gran % (Auto) 0.4 % 04/13/23 15:59 Neut % (Auto) 74.9 % 04/13/23 15:59 Lymph % (Auto) 17.4 % 04/13/23 15:59 [place] % (Auto) 3.8 % 04/13/23 15:59 Eos % (Auto) 2.8 % 04/13/23 15:59 Baso % (Auto) 0.7 % 04/13/23 15:59 Neut # (Auto) 9.22 K/uL (1.40-6.50) H 04/13/23 15:59 Lymph # (Auto) 2.14 K/uL (1.2-3.4) 04/13/23 15:59 [place] # (Auto) 0.47 K/uL (0.11-0.59) 04/13/23 15:59 Eos # (Auto) 0.34 K/uL (0-0.50) 04/13/23 15:59 Baso # (Auto) 0.09 K/uL (0-0.2) 04/13/23 15:59 Immature Gran # (Auto) 0.05 K/uL (0.01-0.20) 04/13/23 15:59 Sodium 139 mmol/L (136-145) 04/13/23 15:59 Potassium 3.7 mmol/L (3.5-5.1) 04/13/23 15:59 Chloride 105 mmol/L (98-107) 04/13/23 15:59 Carbon Dioxide 25 mmol/L (21-32) 04/13/23 15:59 Anion Gap 9 (3-11) 04/13/23 15:59 BUN 13 mg/dl (6-23) 04/13/23 15:59 Creatinine 1.30 mg/dl (0.6-1.4) 04/13/23 15:59 Est Cr Clr Drug Dosing 86.5 ml/min 04/13/23 15:59 Est GFR ( Amer) 76.4 ml/min 04/13/23 15:59 Est GFR (Non-Af Amer) 65.9 ml/min 04/13/23 15:59 BUN/Creatinine Ratio 10.0 (10-20) 04/13/23 15:59 Glucose 94 mg/dl (70-99(Fasting)) 04/13/23 15:59 Calcium 9.7 mg/dl (8.6-10.3) 04/13/23 15:59 Total Bilirubin 0.5 mg/dl (0.2-1.0) 04/13/23 15:59 AST 28 U/L (13-39) 04/13/23 15:59 ALT 18 U/L (7-52) 04/13/23 15:59 Alkaline Phosphatase 118 U/L (34-104) H 04/13/23 15:59 Total Protein 8.0 gm/dl (6.0-8.3) 04/13/23 15:59 Albumin 3.7 gm/dl (3.4-5.0) 04/13/23 15:59 Globulin 4.3 gm/dl (2.5-4.0) H 04/13/23 15:59 Albumin/Globulin Ratio 0.9 (0.9-2) 04/13/23 15:59 Lipase 217 U/L (11-82) H 04/13/23 15:59 Urine Color Yellow 04/13/23 17:53 Urine Appearance Clear (Clear) 04/13/23 17:53 Urine pH 7.0 (4.5-7.5) 04/13/23 17:53 Ur Specific [place] 1.021 (1.000-1.030) 04/13/23 17:53 Urine Protein Negative (Negative) 04/13/23 17:53 Urine Glucose (UA) Negative (Negative) 04/13/23 17:53 Urine Ketones Trace (Negative) H 04/13/23 17:53 Urine Blood Negative (Negative) 04/13/23 17:53 Urine Nitrite Negative (Negative) 04/13/23 17:53 Urine Bilirubin Negative (Negative) 04/13/23 17:53 Urine Urobilinogen Negative (Negative) 04/13/23 17:53 Ur Leukocyte Esterase Negative (Negative) 04/13/23 17:53 Impressions Abdomen/Pelvis CT 04/13/23 16:43 CT SCAN OF THE ABDOMEN AND PELVIS WITH IV CONTRAST CLINICAL HISTORY: Epigastric/left upper quadrant abdominal pain. Chronic pancreatitis. Pseudocyst. COMPARISON STUDY: Prior abdominal CT scans, most recently dated 03/30/2023. TECHNIQUE: Following the IV administration of 91 cc of Optiray 320, CT scan of the abdomen and pelvis is performed from the lung bases to the proximal femora. Images are reviewed in the axial, sagittal, and coronal planes. IV contrast was administered without complication. A dose lowering technique was utilized adhering to the principles of ALARA. CT DOSE: 1175.95 mGy.cm FINDINGS: Lung bases: The heart is mildly enlarged an without pericardial effusion. There are coronary artery calcifications. The lung bases are clear. There is a small hiatal hernia. Liver: The contrast-enhanced liver is mildly enlarged measuring 18.3 cm in length. The liver is otherwise normal in contour and attenuation. A common bile duct stent is in place. Pneumobilia suggests patency of the stent. There is no intrahepatic biliary ductal dilatation. The hepatic veins and portal veins are patent. There is mild focal narrowing at the portal splenic confluence. Gallbladder: Gas within the common bile duct is likely related to the presence of a common bile duct stent. There is no CT evidence of acute cholecystitis. Spleen: Normal in size and attenuation. The splenic vein is patent. Pancreas: The pancreas is atrophic, edematous, and with surrounding inflammation and fluid. The gland enhances throughout. The pancreatic duct is dilated, measuring up to 8 mm in diameter. This is similar to previous. A fluid collection within the pancreatic head on image #116 measures 2.9 x 1.5 cm. This is decreased in size from previous. 2 cyst-gastrostomy tubes are in place. The pseudocyst previously seen along the greater curvature of the stomach has almost completely resolved. A tiny residual collection at this site on image #72 measures 2.1 x 0.7 cm. There is wall thickening of the proximal stomach at this site with surrounding inflammation. Adrenal glands: Unremarkable. Kidneys: The contrast enhanced kidneys are normal in size and without hydronephrosis. The kidneys enhance symmetrically. Abdominal vasculature: The abdominal aorta is normal in course and caliber noting mild to moderate atherosclerotic calcification. Bowel: There are scattered colonic diverticula without CT evidence of acute diverticulitis. No bowel obstruction is seen. The appendix is well-visualized and normal. Duodenal wall thickening has decreased from previous. Peritoneum: No intraperitoneal free air is seen. There is trace pelvic ascites. There is a fat-containing umbilical hernia. Lymphadenopathy: Prominent upper abdominal, retroperitoneal, and mesenteric lymph nodes are likely reactive. Pelvic viscera: The bladder, prostate, and seminal vesicles are normal as visualized. Skeletal structures: No lytic or blastic lesions are seen. IMPRESSION: 1. The pancreas is atrophic, edematous, and with surrounding inflammation and fluid. The appearance suggests acute pancreatitis. This is likely acute on chronic. Correlate with clinical and laboratory findings. 2. A pseudocyst within the pancreatic head has significantly decreased in size from prior examinations. 3. Two cyst-gastrostomy tubes are again seen between the proximal stomach and an adjacent pseudocyst. This pseudocyst has almost completely resolved as compared to previous. See above. 4. A common bile duct stent is in place. Pneumobilia and gas within the gallbladder suggest patency of the stent. 5. The pancreatic parenchyma appears to enhance throughout. 6. Gastric wall thickening is likely related to the presence of the cyst- gastrostomy tubes and adjacent pancreatitis. 7. Trace pelvic ascites. 8. Pancreatic ductal dilatation is unchanged. 9. Prominent upper abdominal, retroperitoneal, mesenteric lymph nodes are similar to previous and likely reactive. 10. Additional findings as above. ACT 112: Negative or not required by law. Electronically signed by: Cuco Ramos M.D. 04/13/2023 8:12 PM Code Status & VTE Plan VTE Prophylaxis Plan VTE Prophylaxis will be ordered: Yes Supervising Physician Co-Signing Physician Notes Patient seen and examined, chart reviewed, case discussed with Dr. Moody and I agree with the assessment and plan as above. In brief, patient is a 43yo male with chronic pancreatitis with stents in place for pseudocyst drainage presenting with acute on chronic pancreatitis - e days of LUQ pain, n/v/d. Afebrile, HD stable, HAD +S1/S2, regular, no m/r/g Lungs CTA Abd soft, tender in epigastric region without rebound/guarding Ext - warm, well perfused Labs and images reviewed WBC=12.3 [id number]=[id number] CT with decrease in size of fluid collection Assessment/Plan -Clear liquids as tolerated. Continue IVF, pain control and anti-emetics as needed -Continue home medications as above Resident Activity Tracking Resident Involvement: Resident Care Provided Care Provided: Adult Hospital Medicine (5) Hypertension Hypertension type: unspecified Qualified Code(s): I10 - Essential (primary) hypertension
[2023-04-13] MEDS ORDERED: MoRPHine SULFATE 2 MG/ML CARP IV PRN (23:41)
[2023-04-13] MEDS ORDERED: ACETAMINOPHEN 1,000 MG/100 ML VIAL IV PRN (23:41)
[2023-04-14] MEDS: LACTATED RINGER'S 1,000 ML IV SCH ×2 (00:16→04:20)
--- NOTE | 2023-04-14 03:06 | Billing Data ---
Date of Service April 13, 2023 Coding Level of Care Code 30148 INT INP/OBS CARE
[2023-04-14] MEDS: ONDANSETRON INJ 2 MG/ML 2 ML VIAL IV PRN (07:33)
[2023-04-14 07:47] LABS: Basophils # (auto) 0.08 K/uL (0-0.2); Basophils % (auto) 1.3 %; Eosinophils # (auto) 0.42 K/uL (0-0.50); Eosinophils % (auto) 6.8 %; Hematocrit (blood only) 32.7 % (42.0-52.0); Hemoglobin 10.7 g/dl (14.0-18.0); Immature Granulocytes # (auto) 0.01 K/uL (0.01-0.20); Immature Granulocytes % (auto) 0.2 %; Lymphocytes # (auto) 2.08 K/uL (1.2-3.4); Lymphocytes % (auto) 33.5 %; Mean Corpuscular Hemoglobin 32.9 pg (25.0-34.0); Mean Corpuscular Hgb Conc 32.7 g/dL (32.0-36.0); Mean Corpuscular Volume 100.6 fL (80.0-100.0); Mean Platelet Volume 8.5 fL (9.4-12.4); Monocytes % (auto) 8.1 %; Neutrophils # (auto) 3.12 K/uL (1.40-6.50); Neutrophils % (auto) 50.1 %; Platelet Count 219 K/uL (130-400); RDW Coefficient of Variation 13.8 % (11.5-14.5); Red Blood Count 3.25 M/uL (4.70-6.10); White Blood Count 6.21 K/ul (4.8-10.8)
[2023-04-14 08:09] LABS: Albumin Globulin Ratio 0.9 (0.9-2); Albumin Level 3.1 gm/dl (3.4-5.0); BUN Creatinine Ratio 9.2 (10-20); Bilirubin,Total 0.5 mg/dl (0.2-1.0); Creatinine Clr Calc Pharmacy 94.7 ml/min; Est GFR (Non-African American) 73.3 ml/min; Globulin 3.4 gm/dl (2.5-4.0); Potassium 3.6 mmol/L (3.5-5.1); Total Protein 6.5 gm/dl (6.0-8.3)
[2023-04-14] MEDS: PANTOprazole 40 MG TAB PO SCH (08:42)
[2023-04-14] MEDS: lisinopril 5 MG TAB PO SCH (08:42)
[2023-04-14] MEDS: allopurinoL 100 MG TAB PO SCH (08:42)
--- NOTE | 2023-04-14 09:13 | Hospitalist Progress Note ---
Date of Service April 14, 2023 Assessment & Plan (1) Acute on chronic pancreatitis: Plan: 43 yo male PMHx recurrent alcoholic pancreatitis/chronic pancreatitis and pancreatic pseudocysts with h/o DVT, and HTN presents with 3 days LUQ abdominal pain after eating [employer]. -Chronic pancreatitis -Pancreatic pseudocyst, chronic and stable -CT A/P: Pancreas is atrophic, edematous, and with surrounding inflammation and fluid. Pseudocyst within the pancreatic head has significantly decreased in size from prior examinations. -Lipase normal today 58 -IV zofran for nausea -IV tylenol and morphine prn for pain -Advance diet to low fat diet for lunch (2) Pancreatic pseudocyst: Plan: - Chronic and stable per CT results, stents in place and appear to be functioning well with a significant decrease in size of the pseudocyst - Keep scheduled appointment with GI (3) History of deep vein thrombosis: Plan: -Chronic and stable -continue xarelto daily (4) GERD (gastroesophageal reflux disease): Plan: -Chronic and stable -cont. home pantoprazole (5) Hypertension: Plan: -Chronic and stable -cont. home lisinopril -BP 132/89 Plan DVT ppx: Xarelto FEN/GI: advanced to low fat Code Status: Full Dispo: Med Surg Admission and Anticipated Discharge Date Admission Date: April 13, 2023 Subjective Patient is awake sitting up in bed. He states he was nauseated earlier this AM but tolerated a clear liquid breakfast. He states he does not feel he can be discharged today. He would like to stay until tomorrow. Review of Systems Constitutional: no fever, no chills, no body aches and no weight loss Ear, Nose, Mouth, Throat: no tinnitus, no dizziness, no nasal congestion and no post nasal drip Respiratory: no cough, no chest congestion and no dyspnea Cardiovascular: no chest pain, no dyspnea and no edema Gastrointestinal: + abdominal pain and + nausea; no early satiety, no vomiting and no dysphagia Genitourinary: no dysuria, no nocturia, no hematuria or no flank pain Integumentary: no rash, no lesions and no new lesions Neurologic: no falls, no seizure-like activity, no headache(s) and no confusion Psychiatric: no depression, no anxiety, no confusion and no hallucinations Endocrine: no polydipsia, no polyphagia and no polyuria Physical Exam Constitutional: WD/WN, vitals as above Neck: trachea midline, no thyromegaly Respiratory: normal respiratory effort, lungs clear to auscultation Cardiovascular: Rate/Rhythm: regular rate and regular rhythm Heart Sounds: normal S1 and normal S2 Extremities: normal capillary refill; no calf tenderness and no edema Gastrointestinal (Abdomen): normal bowel sounds, soft, nontender, no hepatosplenomegaly Skin: no rashes, warm and dry Psychiatric: A+Ox3, euthymic affect Results & Data Results & Data Vital Signs (Past 12 Hours) Vital Signs Temp Pulse Pulse Resp BP BP Pulse Ox 04/14/23 07:46 36.6 C 61 16 132/89 98 04/13/23 23:30 36.4 C L 80 16 137/89 96 04/13/23 22:30 80 18 133/97 99 04/13/23 21:30 83 18 155/114 H 100 04/13/23 21:23 80 O2 Del Method 04/14/23 07:46 Room Air 04/13/23 23:30 Room Air 04/13/23 22:30 04/13/23 21:30 04/13/23 21:23 Laboratory Results Abnormal lab results 04/13/23 04/13/23 04/13/23 Range/Units 15:59 15:59 17:53 WBC 12.31 H (4.8-10.8) K/ul RBC 3.85 L (4.70-6.10) M/uL Hgb 12.7 L (14.0-18.0) g/dl Hct 37.8 L (42.0-52.0) % MCV (80.0-100.0) fL RDW Std Deviation 49.5 H (36.4-46.3) fL MPV 8.8 L (9.4-12.4) fL Neut # (Auto) 9.22 H (1.40-6.50) K/uL BUN/Creatinine Ratio (10-20) Alkaline Phosphatase 118 H (34-104) U/L Albumin (3.4-5.0) gm/dl Globulin 4.3 H (2.5-4.0) gm/dl Lipase 217 H (11-82) U/L Urine Ketones Trace H (Negative) 04/14/23 04/14/23 Range/Units 07:12 07:12 WBC (4.8-10.8) K/ul RBC 3.25 L (4.70-6.10) M/uL Hgb 10.7 L (14.0-18.0) g/dl Hct 32.7 L (42.0-52.0) % MCV 100.6 H (80.0-100.0) fL RDW Std Deviation 51.0 H (36.4-46.3) fL MPV 8.5 L (9.4-12.4) fL Neut # (Auto) (1.40-6.50) K/uL BUN/Creatinine Ratio 9.2 L (10-20) Alkaline Phosphatase (34-104) U/L Albumin 3.1 L (3.4-5.0) gm/dl Globulin (2.5-4.0) gm/dl Lipase (11-82) U/L Urine Ketones (Negative) Diagnostic Findings Abdomen/Pelvis CT 04/13/23 16:43 CT SCAN OF THE ABDOMEN AND PELVIS WITH IV CONTRAST CLINICAL HISTORY: Epigastric/left upper quadrant abdominal pain. Chronic pancreatitis. Pseudocyst. COMPARISON STUDY: Prior abdominal CT scans, most recently dated 03/30/2023. TECHNIQUE: Following the IV administration of 91 cc of Optiray 320, CT scan of the abdomen and pelvis is performed from the lung bases to the proximal femora. Images are reviewed in the axial, sagittal, and coronal planes. IV contrast was administered without complication. A dose lowering technique was utilized adhering to the principles of ALARA. CT DOSE: 1175.95 mGy.cm FINDINGS: Lung bases: The heart is mildly enlarged an without pericardial effusion. There are coronary artery calcifications. The lung bases are clear. There is a small hiatal hernia. Liver: The contrast-enhanced liver is mildly enlarged measuring 18.3 cm in length. The liver is otherwise normal in contour and attenuation. A common bile duct stent is in place. Pneumobilia suggests patency of the stent. There is no intrahepatic biliary ductal dilatation. The hepatic veins and portal veins are patent. There is mild focal narrowing at the portal splenic confluence. Gallbladder: Gas within the common bile duct is likely related to the presence of a common bile duct stent. There is no CT evidence of acute cholecystitis. Spleen: Normal in size and attenuation. The splenic vein is patent. Pancreas: The pancreas is atrophic, edematous, and with surrounding inflammation and fluid. The gland enhances throughout. The pancreatic duct is dilated, measuring up to 8 mm in diameter. This is similar to previous. A fluid collection within the pancreatic head on image #116 measures 2.9 x 1.5 cm. This is decreased in size from previous. 2 cyst-gastrostomy tubes are in place. The pseudocyst previously seen along the greater curvature of the stomach has almost completely resolved. A tiny residual collection at this site on image #72 measures 2.1 x 0.7 cm. There is wall thickening of the proximal stomach at this site with surrounding inflammation. Adrenal glands: Unremarkable. Kidneys: The contrast enhanced kidneys are normal in size and without hydronephrosis. The kidneys enhance symmetrically. Abdominal vasculature: The abdominal aorta is normal in course and caliber noting mild to moderate atherosclerotic calcification. Bowel: There are scattered colonic diverticula without CT evidence of acute diverticulitis. No bowel obstruction is seen. The appendix is well-visualized and normal. Duodenal wall thickening has decreased from previous. Peritoneum: No intraperitoneal free air is seen. There is trace pelvic ascites. There is a fat-containing umbilical hernia. Lymphadenopathy: Prominent upper abdominal, retroperitoneal, and mesenteric lymph nodes are likely reactive. Pelvic viscera: The bladder, prostate, and seminal vesicles are normal as visualized. Skeletal structures: No lytic or blastic lesions are seen. IMPRESSION: 1. The pancreas is atrophic, edematous, and with surrounding inflammation and fluid. The appearance suggests acute pancreatitis. This is likely acute on chronic. Correlate with clinical and laboratory findings. 2. A pseudocyst within the pancreatic head has significantly decreased in size from prior examinations. 3. Two cyst-gastrostomy tubes are again seen between the proximal stomach and an adjacent pseudocyst. This pseudocyst has almost completely resolved as compared to previous. See above. 4. A common bile duct stent is in place. Pneumobilia and gas within the gallbladder suggest patency of the stent. 5. The pancreatic parenchyma appears to enhance throughout. 6. Gastric wall thickening is likely related to the presence of the cyst- gastrostomy tubes and adjacent pancreatitis. 7. Trace pelvic ascites. 8. Pancreatic ductal dilatation is unchanged. 9. Prominent upper abdominal, retroperitoneal, mesenteric lymph nodes are similar to previous and likely reactive. 10. Additional findings as above. ACT 112: Negative or not required by law. Electronically signed by: Cuco Ramos M.D. 04/13/2023 8:12 PM PG Care Time/CCT Total # of Minutes Spent Total Time Spent with Patient: Total time spent is greater than 50% in coordination of care (as documented) at patient's floor/unit and/or counseling patient: Coding Level of Care Code 43680 SUB INP/OBS CARE 1/25MIN Diagnoses Acute on chronic pancreatitis K85.90; K86.1 Pancreatic pseudocyst K86.3 History of deep vein thrombosis Z86.718 GERD (gastroesophageal reflux disease) K21.9 Hypertension I10 Hypertension type: unspecified (5) Hypertension Hypertension type: unspecified Qualified Code(s): I10 - Essential (primary) hypertension
[2023-04-14] MEDS: MoRPHine SULFATE 2 MG/ML CARP IV PRN ×2 (13:06→21:23)
[2023-04-14] MEDS ORDERED: RIVAROXABAN 20 MG TAB PO SCH (16:30)
[2023-04-15] MEDS: PANTOprazole 40 MG TAB PO SCH (07:23)
[2023-04-15] MEDS: allopurinoL 100 MG TAB PO SCH (07:23)
[2023-04-15] MEDS: lisinopril 5 MG TAB PO SCH (07:23)
[2023-04-15] MEDS: ONDANSETRON INJ 2 MG/ML 2 ML VIAL IV PRN (09:20)
--- NOTE | 2023-04-15 15:24 | Discharge Summary ---
Date of Service April 15, 2023 Admission HPI Per Admitting Provider 43 yo male PMHx recurrent alcoholic pancreatitis, h/o DVT, HTN, and gout presents with 3 days LUQ abd pain. 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 He follows with [facility] and has a CBD stent along with 2 cyst gastrotomy tubes in place. 1 day prior to symptom onset he had a CT A/P with contrast performed to evaluate the stents. He states that after the study is when he started experiencing his abdominal pain. He has associated nausea, vomiting, and diarrhea but denies blood in his stool. He typically is on a low-fat diet but does endorse having [employer] that day as well. Otherwise no obvious triggers. He has not consumed alcohol in the last month. No new medications. His fevers, fatigue, cough, congestion, shortness of breath, chest pain, constipation, dysuria. Principal Diagnosis acute on chronic pancreatitis Discharge Exam Constitutional WD/WN, vitals as above Neck trachea midline, no thyromegaly Respiratory normal respiratory effort, lungs clear to auscultation Cardiovascular Rate/Rhythm: regular rate and regular rhythm Heart Sounds: normal S1 and normal S2 Extremities: normal capillary refill; no calf tenderness and no edema Gastrointestinal (Abdomen) normal bowel sounds, soft, nontender, no hepatosplenomegaly Skin no rashes, warm and dry Psychiatric A+Ox3, euthymic affect Discharge Data Allergies Allergy/AdvReac Type Severity Reaction Status Date / Time cephalexin Allergy Intermediate Rash Verified 04/13/23 17:26 Consultations 04/13/23 20:25 ED Decision to Admit Stat Ordered Studies 04/13/23 16:43 CT abd pelvis IV con only Stat Hospital Course (1) Acute on chronic pancreatitis: 43 yo male PMHx recurrent alcoholic pancreatitis/chronic pancreatitis and pancreatic pseudocysts with h/o DVT, and HTN presents with 3 days LUQ abdominal pain after eating [employer]. -Chronic pancreatitis -Pancreatic pseudocyst, chronic and stable -CT A/P: Pancreas is atrophic, edematous, and with surrounding inflammation and fluid. Pseudocyst within the pancreatic head has significantly decreased in size from prior examinations. -Lipase normal today 58 -IV zofran for nausea -IV tylenol and morphine prn for pain -Advance diet to low fat diet for lunch On 04/16, pain improved. Imaging has shown an improvement with his pseudocyst. Educated patient on his outlook with chronic pancreatitis, and what his pain level goal should be. Patient will likely have to tolerate a pain level of 4/10. Goal should not be for him to be pain free. Recommend to abstain from alcohol. Will take a step-silver approach with his pain. Start with scheduled tylenol. If pain is not at goal, depending if patient is a candidate for celebrex, this could then be started. If this fails or patient is not a candidate, may recommend cymbalta. Would try these steps before going with an opioid as these medications are not recommend for GI symptoms.. If these do not work, possibly go with tramadol, if he is a candidate. (2) Pancreatic pseudocyst: - Chronic and stable per CT results, stents in place and appear to be functioning well with a significant decrease in size of the pseudocyst - Keep scheduled appointment with GI (3) History of deep vein thrombosis: -Chronic and stable -continue xarelto daily (4) GERD (gastroesophageal reflux disease): -Chronic and stable -cont. home pantoprazole (5) Hypertension: -Chronic and stable -cont. home lisinopril -BP 132/89 Plan DVT ppx: Xarelto FEN/GI: advanced to low fat Total Time Total Time Spent Total Time Spent (In Minutes): 32 Discharge Plan Discharge Items Patient Disposition: Home - Self-Care Reason For Visit: PANCREATITIS Discharge Diagnosis: pancreaatitis Activity: Resume your previous activity Non-emergency contact: Primary Care Provider Call non-emergency contact if: you have any medication questions Follow-up/Referrals: Jaja Cali MD [Primary Care Provider] - 04/18/23 2:00 pm Diet: Heart Healthy and Low Fat Addtl Attending Provider Instructions: Continue to abstain from drinking. Please keep followup with Gastroenterology. Recommend followup with PCP in 1-2 weeks. We will recommend a stepwise approach with your pain management. Will recommend to continue acetaminophen but scheduled. If this does not work, we may consider celebrex, but will defer to your PCP. If this does not work or is unavailable, could consider cymbalta. Pending Studies at Discharge: No Stand-Alone Forms: [employer], Smoking Cessation Medications and DC Order Prescriptions: New acetaminophen [Tylenol] 325 mg tablet 650 mg PO Q6H PRN (Reason: pain) 28 Days Qty: 120 0RF Rx Instructions: Abstain from alcohol use when taking this. ondansetron 4 mg tablet,disintegrating 4 mg PO Q8H PRN (Reason: nausea and vomiting) Qty: 30 0RF Continued pantoprazole 40 mg tablet,delayed release (DR/EC) 40 mg PO DAILY Qty: 90 3RF allopurinol 100 mg tablet 100 mg PO DAILY Qty: 90 3RF calcitriol 0.25 mcg capsule 0.25 mcg PO 3XWK Qty: 45 1RF Rx Instructions: TAKE THIS MED EVERY MON/WED/FRI lisinopril 5 mg tablet 5 mg PO DAILY Qty: 90 3RF ergocalciferol (vitamin D2) 1,250 mcg (50,000 unit) capsule 50,000 unit PO WEEKLY Qty: 12 0RF Rx Instructions: TAKE THIS MED EVERY FRIDAY Xarelto 20 mg tablet 20 mg PO QDD Hold Instructions: Resume on 03/27/23. hold for 7 days following ERCP Rx Instructions: must administer with evening meal Discharge Orders: Discharge Order (Routine); Ordered 04/15/23 Ordered By: Raimundo Villa Admission Data Admit Date/Time: 04/13/23 22:42 Attending Provider: Raimundo Villa Admit Provider: Shimon Moody Primary Care Provider: Jaja Cali Other Providers: Vijaya Hernandez Other Interventions: Discharge Summary Assessment (RN) Last Done: 04/15/23 15:17 Coding Level of Care Code 67385 INP/OBS DISCH >30 MIN Diagnoses Acute on chronic pancreatitis K85.90; K86.1 Pancreatic pseudocyst K86.3 History of deep vein thrombosis Z86.718 GERD (gastroesophageal reflux disease) K21.9 Hypertension I10 Hypertension type: unspecified
== END 2023-04-15 16:43 | disposition home or self-care (01) | DRG 439 ==
LOC: ED 15:22 → INTOOBSV 22:42 → 3N 22:42 → SUATTDRO 22:42 → 3N 23:17